=== PATIENT | female | born 1990 | race Caucasian/White ===

== ENCOUNTER 2017-11-09 07:53 | Day surgery (SDC) | END 2017-11-09 12:54 | disposition home or self-care (01) ==

== ENCOUNTER 2019-02-12 09:31 | Inpatient (IN) | payer OTHER ==
[~2019-02-12] VITALS: Ht 147.3 cm; Wt 93.0 kg
[~2019-02-12 09:31] MED LIST: ASPI-1044 PO; CHOL100062 PO; CIPR500T4 PO; CYAN100T PO; ENOX100D2 SC; ERGO500013 PO; IPRA4AER INHALATION; LEVO75TA5 PO; LEVO88TA42 PO; LIT300 PO; LORA10TA3 PO; LOXA10CA PO; MECL-77 PO; METF500T24 PO; METO-448 PO; NAPH30DR3 RIGHT EYE; PROP10TA6 PO; SERT25TA83 PO; TOPI25CA PO
[2019-02-12] MEDS ORDERED: ALBUTEROL 0.083% (NEB) 2.5 MG/3 ML AMP INH STA (09:52)
[2019-02-12] MEDS ORDERED: CEFTRIAXONE 1 GM/50 ML (PMX) 50 ML IVPB ONE (12:00)
--- NOTE | 2019-02-12 12:22 | ERD ---
ER Documentation Chief Complaint Chief Complaint cough, sob x3 wks, tachypneic in triage, 02 88-93%, pitting edema lle HPI 28-year-old female brought to the emergency department by her mother for evaluation of shortness of breath. According to mom patient has a history of obstructive sleep apnea and has been noncompliant with the use of her BiPAP machine. Over the last 3 weeks she has been having increasing lower extremity edema and is becoming more more short of breath. This morning she was severely short of breath and was brought to the emergency department. There is no history of fever, sputum production, chest pain. ROS All systems reviewed and are negative except as per history of present illness. Medications Home Meds Reported Medications [place] Carbonate* ([place]*) 300 Mg Cap, 600 MG PO QHS, CAP 02/12/19 Levothyroxine Sodium* (Levoxyl*) 88 Mcg Tablet, 88 MCG PO BEFORE BREAKFAST, #30 TAB 02/12/19 Loxapine Succinate (Loxapine) 10 Mg Capsule, 10 MG PO QHS, CAP 02/12/19 Cyanocobalamin* (Vitamin B12*) 100 Mcg Tab, 100 MCG PO DAILY, TAB 02/12/19 Loratadine* (Loratadine*) 10 Mg Tablet, 10 MG PO DAILY, #30 TAB 02/12/19 Metformin Hcl* (Metformin Hcl*) 500 Mg Tablet, 500 MG PO WITH BREAKFAST, #30 TAB 02/12/19 Propranolol Hcl* (Propranolol Hcl*) 10 Mg Tablet, 10 MG PO BID, TAB 02/12/19 Ergocalciferol (Vitamin D2) (VITAMIN D2) 50,000 Unit Capsule, 81246 UNIT PO EVERY SUNDAY, CAP 02/12/19 Discontinued Reported Medications Cholecalciferol* (Vitamin D3*) 1,000 Unit Tablet, 1000 UNIT PO DAILY, TAB 11/09/17 Topiramate* (Topamax*) 25 Mg Cap.sprink, 50 MG PO QAM, CAP 11/09/17 Topiramate* (Topamax*) 25 Mg Cap.sprink, 100 MG PO QPM, CAP 11/09/17 Sertraline Hcl* (Sertraline Hcl*) 25 Mg Tablet, 75 MG PO DAILY, #30 TAB 11/09/17 Levothyroxine Sodium* (Levothyroxine Sodium*) 75 Mcg Tablet, 75 MCG PO BEFORE BREAKFAST, #30 TAB 11/09/17 Allergies Allergies: Coded Allergies: No Known Drug Allergies (Unverified Allergy, Unknown, 02/12/19) PMhx/Soc History of Surgery: No Anesthesia Reaction: No Hx Neurological Disorder: No Hx Respiratory Disorders: Yes (sleep apnea) Hx Cardiac Disorders: No Hx Psychiatric Problems: Yes (halucinations) Hx Miscellaneous Medical Probl: Yes (down syndrome) Hx Alcohol Use: No Hx Substance Use: No Hx Tobacco Use: No Smoking Status: Never smoker FmHx Noncontributory supportive mother at the bedside Physical Exam Vitals Vital Signs Date Temp Pulse Resp B/P (MAP) Pulse Ox O2 O2 Flow FiO2 Time Delivery Rate 02/12/19 72 20 106/51 100 BIPAP 12:04 (69) 02/12/19 93 27 10:00 02/12/19 93 99 50 10:00 02/12/19 98.5 97 60 124/64 93 09:33 (84) Physical Exam GENERAL: Down syndrome appearance. Patient appears short of breath. HEENT: Pupils equal, round, and reactive to light. EOMI. There is no scleral icterus. NECK: C-spine is soft and supple, there is no meningismus. There is no cervical lymphadenopathy. No JVD LUNGS: Wheezing bilaterally with decreasing tidal volume. Occasional crackle at both bases. She is tachypneic with use of accessory muscles. HEART: Regular rate and rhythm, no murmurs, clicks, rubs or gallops. ABDOMEN: Soft, non-tender, non-distended. There are bowel sounds in all four quadrants. No rebound or guarding. EXTREMITIES: 2+ edema bilaterally with no cyanosis or clubbing NEURO: The patient moves all four extremities with 5/5 strength. Cranial nerves II - XII are intact. Normal gait. Alert and oriented SKIN: There is no apparent rash or petechiae. HEME/LYMPHATIC: There is no evidence of excessive bruising or lymphedema. PSYCHIATRIC: The patient does not appear anxious or depressed. Result Diagram: [birth year] Results 24 hrs Laboratory Tests Test 02/12/19 09:47 02/12/19 09:51 02/12/19 10:07 Bedside Glucose 109 mg/dL White Blood Count 16.9 10^3/ul Red Blood Count 5.56 10^6/ul Hemoglobin 14.8 g/dl Hematocrit 47.7 % Mean Corpuscular Volume 85.8 fl Mean Corpuscular Hemoglobin 26.6 pg Mean Corpuscular Hemoglobin Concent 31.0 g/dl Red Cell Distribution Width 18.9 % Platelet Count 377 10^3/UL Mean Platelet Volume 8.8 fl Immature Granulocytes % 0.900 % Neutrophils % 87.0 % Lymphocytes % 6.6 % Monocytes % 4.6 % Eosinophils % 0.2 % Basophils % 0.7 % Nucleated Red Blood Cells % 0.0 /100WBC Immature Granulocytes # 0.160 10^3/ul Neutrophils # 14.7 10^3/ul Lymphocytes # 1.1 10^3/ul Monocytes # 0.8 10^3/ul Eosinophils # 0.0 10^3/ul Basophils # 0.1 10^3/ul Nucleated Red Blood Cells # 0.0 10^3/ul Prothrombin Time 13.5 Sec Prothrombin Time Ratio 1.1 INR International Normalized Ratio 1.02 Activated Partial Thromboplast Time 27.3 Sec Sodium Level 136 mmol/L Potassium Level 4.1 mmol/L Chloride Level 96 mmol/L Carbon Dioxide Level 30 mmol/L Anion Gap 10 Blood Urea Nitrogen 10 mg/dl Creatinine 0.76 mg/dl Est Glomerular Filtrat Rate mL/min > 60 mL/min Glucose Level 117 mg/dl Calcium Level 9.4 mg/dl Total Bilirubin 0.7 mg/dl Direct Bilirubin 0.00 mg/dl Indirect Bilirubin 0.7 mg/dl Aspartate Amino Transf (AST/SGOT) 36 IU/L Alanine Aminotransferase (ALT/SGPT) 32 IU/L Alkaline Phosphatase 75 IU/L Troponin I < 0.012 ng/ml B-Type Natriuretic Peptide 66 PG/ML Total Protein 7.7 g/dl Albumin 4.0 g/dl Globulin 3.70 g/dl Albumin/Globulin Ratio 1.08 POC Venous Lactate 1.0 mmol/L Current Medications Medications Dose Sig/Asiya Start Time Status Last (Trade) Ordered Route PRN Stop Time Admin Dose Reason Admin Albuterol 5 mg ONCE STAT 02/12/19 DC 02/12/19 (Proventil INH 09:52 02/12/19 10:04 0.083% (Neb)) 09:54 Ceftriaxone 50 ml @ ONCE ONCE 02/12/19 02/12/19 Sodium 100 mls/hr IVPB 12:00 02/12/19 12:02 12:29 Procedures/MDM Patient was taken to a room, seen and evaluated. Comfort measures were initiated. Diagnostic tests were ordered and reviewed. 3 LEAD RHYTHM STRIP: Normal sinus rhythm without ectopy EK lead EKG reviewed by myself: Normal Sinus Rhythm Rightward axis deviation Nonspecific ST and T wave changes Impression: Nonspecific EKG RADIOLOGY: Reviewed with the radiologist CONSULTATION: Dr. Schumacher was notified for admission REEVALUATION: 1220: Diagnostic tests were appreciated and discussed with the family decision was made for admission to the hospital. After BiPAP treatment, patient appeared to be improving. Her work of breathing improved and she seemed to be much more comfortable on the BiPAP. MEDICAL DECISION MAKING: Patient presents for shortness of breath. Differential diagnosis entertained included asthma, pneumonia, other cardiac and pulmonary concerns. After reviewing the patient's diagnostic tests and clinical presentation, patient appears to have pulmonary hypertension resulting in a congestive heart failure type picture likely secondary to sleep apnea. Patient has an elevated white blood cell count given the severity of her presentation, I will be placing her on antibiotics although I doubt this is a pneumonia. Patient's first troponin is reassuring and I do not believe this is likely ischemic especially given her age. She will be admitted to the hospital for diuresis, respiratory support and further diagnostic treatment and observation. Departure Diagnosis: Primary Impression: Pulmonary hypertension Additional Impression: Obstructive sleep apnea Condition: Serious LEWIS JENKINS Feb 12, 2019 12:22
[2019-02-12] MEDS ORDERED: ONDANSETRON 4 MG INJ IV PRN ×2 (12:30→15:30)
[2019-02-12] MEDS ORDERED: FUROSEMIDE 40 MG INJ IV ONE (12:30)
[2019-02-12] MEDS ORDERED: ACETAMINOPHEN 325 MG TAB PO PRN (12:30)
--- NOTE | 2019-02-12 15:15 | QN ---
Documentation Comment Pt seen and examined, Dictated Transfer to ICU, abg pending might need intubation LORNA LYONS MD Feb 12, 2019 15:15
[2019-02-12] MEDS ORDERED: METHYLPREDNISOLONE 125 MG INJ IV ONE (15:30)
[2019-02-12] MEDS ORDERED: VANCOMYCIN IV PER PHARMACY XX SCH (15:30)
[2019-02-12] MEDS ORDERED: NACL 0.9% 3 ML SYG IV SCH (15:30)
[2019-02-12] MEDS ORDERED: DOCUSATE SODIUM 100 MG CAP PO PRN (15:30)
[2019-02-12] MEDS: FAMOTIDINE 20 MG INJ IV SCH (15:49)
[2019-02-12] MEDS ORDERED: MIDAZOLAM (DRIP) 50 mg/50 mL 50 ML IV STA (15:50)
[2019-02-12] MEDS ORDERED: VANCOMYCIN HCL 2 GM in SOD CHLORIDE 0.9% 500 ML IVPB SCH (16:30)
[2019-02-12] MEDS ORDERED: LORAZEPAM 2 MG INJ ONE (17:49)
[2019-02-12] MEDS ORDERED: PROPOFOL 100 ML IV STA (17:58)
[2019-02-12] MEDS ORDERED: LORAZEPAM 2 MG INJ IV ONE (18:00)
--- NOTE | 2019-02-12 18:02 | EN ---
Date/Time of Note Date/Time of Note DATE: 02/12/19 TIME: 17:59 ER Progress Note Admitting physician requested intubation. Endotracheal Intubation by me: Pre assessment performed. I administered etomidate 20 mg IV and rocuronium 100 mg IV Pre-oxygenation performed with 100% oxygen RSI: Performed w/o complication or hypoxic events. Medications as ordered. Blade: 4.0 CMAC blade ET Tube: 7.0 cm Depth: 21 cm at the lip Intubation confirmed by colorimetric CO2, equal breath sounds, quiet over the stomach. Chest X-ray 1V Interpreted by me: Reveals bilateral mild congestion, no acute infiltrates although ET tube was in the right mainstem bronchus, it was pulled out 3 cm. Repeat chest x-ray performed after correcting the ET tube depth revealed an ET tube just above the zenon, no acute infiltrates, mild congestion bilaterally. I did pull back the ET tube another centimeter after this although further x- rays will be deferred. RAOUL MYERS MD Feb 12, 2019 18:02
[2019-02-12] MEDS: ALBUTEROL/IPRATROPIUM (NEB) 3 ML AMP HHN SCH ×2 (18:05→21:05)
--- NOTE | 2019-02-12 18:37 | HP ---
DATE OF ADMISSION: 02/12/2019 REASON FOR ADMISSION: Shortness of breath. HISTORY OF PRESENTING ILLNESS: This is a 28-year-old female with a past medical history of Down synd lucho, hypothyroidism, diabetes, hypertension, history of psychosis in the past, sleep apnea, was brou ght in by the mother after the patient has been noncompliant with her use of her CPAP machine at home . According to the mother, the patient has been really noncompliant with her CPAP machine. She does not like the way it fits on her mouth. She has been progressively becoming very weak, tired, short of breath and was brought into the emergency department for further evaluation. Currently, patient i s very altered, unable to obtain any history; however according to the mother also patient responds a little bit in Latvian. According to the mother, the patient did not have any cough, any chest pain, any fevers and chills. On arrival to ED, vital signs showed temperature of 98.7, respiratory rate o f 18 currently 29, blood pressure was 110/63, was initially put on BiPAP; however the patient refused BiPAP and then currently was on high flow at 80%. The patient was given albuterol, DuoNeb, Proventi l and Rocephin and was admitted for further management. The patient had chest x-ray which was a poor study. BUN was 10 and creatinine 0.76. White count of 16.9, hemoglobin 14.8, platelet count 377. PAST MEDICAL HISTORY: 1. Down syndrome as a child. 2. Hypertension. 3. Hyperlipidemia. 4. Diabetes. 5. Hypothyroidism. 6. Sleep apnea. 7. History of psychosis disorder. MEDICATIONS TAKING AT HOME: 1. [place] carbonate 600 at bedtime. 2. Loratadine 10. 3. Propranolol 10 b.i.d. 4. Loxapine 10 mg at bedtime. 5. Levothyroxine 88. 6. Metformin 500 with breakfast. 7. Cyanocobalamin. 8. Vitamin D2. ALLERGIES: NONE. PAST SURGICAL HISTORY: Status post ventral hernia repair. SOCIAL HISTORY: No history of smoking, alcohol or drug use. Currently lives with mother. According to the mother, the patient goes to a community school and can read a little bit and understand a lit tle bit of Latvian. FAMILY HISTORY: No history of Down syndrome. PHYSICAL EXAMINATION: VITAL SIGNS: Currently, blood pressure 109/93, pulse 97, respiratory rate in 30s, saturating 92% on 80% of FiO2. GENERAL: The patient is very lethargic, barely arousable, slightly open her eyes, does not follow an y commands. NECK: Thick. Morbidly obese. HEART: Regular rate and rhythm. LUNGS: Decreased breath sounds bilaterally. ABDOMEN: Distended, obese. Positive bowel sounds. EXTREMITIES: Short extremities with 1 to 2+ pitting edema. LABORATORY DATA: BUN of 10, creatinine 0.76. Lactate of 1. White count 16.9, hemoglobin 14.8, plat elet count 377. UA: 1+ hemoglobin. ABG is pending. DIAGNOSTIC DATA: The patient had chest x-ray that showed very poor inspiration with some compression of lung parenchyma gives the heart . ASSESSMENT AND PLAN: This is a 28-year-old female with: 1. Severe altered mental status likely secondary to metabolic encephalopathy, likely secondary to CO 2 narcosis. The patient is also on antidepressants and loxapine at home. I do not know if that is a contribution to that. 2. Severe sleep apnea, impending respiratory failure. 3. Likely respiratory acidosis. 4. Morbid obesity. 5. Down syndrome. 6. Hypertension. 7. Diabetes. 8. History of ventral hernia repair. 9. Leukocytosis, rule out pneumonia. PLAN: At this period of time, the patient will be admitted to the ICU. The patient will be n.p.o., aspiration precautions, will be on nebs round the clock. She will also be on steroids round the cloc k. ABG is pending. We will also start the patient on broad spectrum IV antibiotics with vancomycin and cefepime. The patient will most likely need an intubation. I spoke to Dr. Capone and to Dr. Marquis Rodriguez. I spoke to the mother at the bedside. Rest of the treatment will depend on t he patient's hospitalization course. Dictated By: LORNA TREVIZO/MICHAEL Conf#: [id number] DID#: [id number] CC: LEWIS JENKINS; SHARIF TORRES MD;*End*
--- NOTE | 2019-02-12 20:11 | CONS ---
DATE OF ADMISSION: 02/12/2019 DATE OF CONSULTATION: 02/12/2019 TYPE OF CONSULTATION: Cardiology. REASON FOR CONSULTATION: Chest pain, assess for acute coronary syndrome as well as shortness of aide th, congestive heart failure. REQUESTING PHYSICIAN: Julieth Lyons MD HISTORY OF PRESENT ILLNESS: Ms. Robertson is a 28-year-old female with history of Down syndrome, obst ructive sleep apnea, hypertension, diabetes mellitus, hypothyroidism, who presented with complaints o f worsening shortness of breath, noncompliance with her BiPAP machine at home as well as lower extrem ity edema. There is no documented history of fever or increased sputum production. Upon arrival, te mperature was 98.5, blood pressure 124/64, pulse 97, respiratory rate 16, satting 93%. The patient's labs revealed a white blood cell count of 16.9, hemoglobin 14.8, platelet count of 377, sodium of 13 6, potassium 4.1, creatinine 0.76, BUN of 10, AST of 36, ALT of 32, troponin negative. ABG revealing a pH of 7.32, PaO2 of 98, pCO2 of 53, UA negative. The patient's chest x-ray revealed very poor ins piration resulting compression of lung parenchyma giving heart a transverse configuration. The patie nt's electrocardiogram reveals normal sinus rhythm, rate 84, normal axis, normal intervals with mild diffuse T-wave flattening, borderline right axis deviation mildly with diffuse ST and T-wave flatteni ng. The patient thus far in the emergency department required intubation after being given dose of [place]-Medrol 125, dose of Lasix 40 and is to be admitted to the ICU. PAST MEDICAL HISTORY: As above in HPI. MEDICATIONS CURRENTLY IN HOSPITAL: 1. Lovenox 40 mg subcutaneously daily. 2. Vancomycin. 3. Cefepime IV q.12. 4. Pepcid 20 mg IV q.12. 5. Midazolam. 6. Tylenol p.r.n. 7. Colace p.r.n. 8. Vancomycin p.r.n. 9. Zofran. 10. Ceftriaxone. ALLERGIES: NO KNOWN DRUG ALLERGIES. SOCIAL HISTORY: No current tobacco, EtOH or illicit drug use. FAMILY HISTORY: No history of sudden cardiac or early CAD. REVIEW OF SYSTEMS: As above in HPI. CONSTITUTIONAL: No fevers, chills. PULMONARY: Respiratory failure, status post intubation. GASTROINTESTINAL: No vomiting. GENITOURINARY: No hematuria. MUSCULOSKELETAL: Degenerative joint disease. PSYCHIATRIC: No documented psychiatric history. NEUROLOGIC: History of Down syndrome. CARDIOVASCULAR: Lower extremity edema. PHYSICAL EXAMINATION: VITAL SIGNS: Temperature of 98.5, blood pressure 110/70, pulse 97, respiratory rate 16, satting 98%. GENERAL: The patient is intubated and sedated. NECK: JVP is approximately 9 cm of water. CHEST: Upper airway transmitted rhonchus sounds. HEART: Regular rate and rhythm. Normal S1, S2, I/ systolic murmur, nondisplaced PMI. ABDOMEN: Positive bowel sounds, soft. EXTREMITIES: Trace pitting edema bilaterally, 1+ pulses bilateral posterior tibial. LABORATORY DATA: As above in HPI. No further labs for my review at this time. IMAGING STUDIES: As above in HPI. No further imaging studies for my review at this time. ELECTROCARDIOGRAM: As above in HPI. No further electrocardiograms for my review at this time. IMPRESSION: 1. Respiratory failure, assess for congestive heart failure. 2. Lower extremity edema, assess for congestive heart failure. 3. Tachycardia, improved, status post intubation, likely due to respiratory distress. 4. Abnormal electrocardiogram with right axis deviation and T-wave flattening. Assess for acute cor onary syndrome. 5. Down syndrome. 6. Hypothyroidism. 7. Diabetes mellitus. 8. Obstructive sleep apnea. RECOMMENDATIONS: 1. At this time, the patient is admitted to the ICU for close monitoring. 2. We will continue the patient's broad-spectrum antibiotics and follow up all culture data. 3. We would continue gentle diuresis, but had noted the patient's BNP never high. We will continue diuresis given lower extremity edema. 4. Check a 2D echo for this patient's ejection fraction, wall motion or rule out any major valve abn ormalities. 5. Complete a rule out for myocardial infarction to ensure the patient's episodes of chest pain prio r to admit were not due to acute coronary syndrome such an acute myocardial infarction, although no r eport description of that at this time. 6. Continue the patient's current steroids and bronchodilators. Thank you for allowing me to take part in the care of this patient. I will continue to follow her ve ry closely with you with further recommendations to be made as the [facility]. Dictated By: SHARIF PUGA/MICHAEL Conf#: [id number] DID#: [id number] CC: LEWIS JENKINS; JULIETH LYONS;*EndCC*
--- NOTE | 2019-02-12 20:30 | CONS ---
DATE OF ADMISSION: 02/12/2019 DATE OF CONSULTATION: 02/12/2019 TYPE OF CONSULTATION: Pulmonary. REASON FOR CONSULT: Respiratory distress. HISTORY OF PRESENT ILLNESS: This is an unfortunate 28-year-old lady with history of Down syndrome, c omes in with several-day history of increasing shortness of breath, orthopnea, PND, marked hypoxemia, not tolerating noninvasive positive pressure ventilation on high flow O2. Case was discussed with E R physician and I recommended that the patient be intubated for airway protection and address hypoven tilation. PAST MEDICAL HISTORY: Down syndrome. FAMILY HISTORY: Noncontributory. SYSTEMS REVIEW: A 12-point review of systems was negative other than that mentioned above. PHYSICAL EXAMINATION: GENERAL: Somnolent young lady. VITAL SIGNS: Currently afebrile, pulse is 97, blood pressure 110/70, O2 saturation 98% on 100% FiO2. NECK: Unable to assess JVP. CARDIAC: S1, S2. Distant heart sounds. CHEST: Diminished air entry bilaterally. ABDOMEN: Obese, soft, nontender. No guarding or rebound. EXTREMITIES: No cyanosis, clubbing. NEUROLOGIC: Unable to assess. LABORATORIES: White count 16.9, hemoglobin 14.8, platelets of 377. BUN 10, creatinine 0.76. INR 1. 02. Arterial blood gas post-intubation: pH 7.48, pCO2 of 41, pO2 of 148. DIAGNOSTIC DATA: Chest x-ray was reviewed, which demonstrated low lung volumes, bibasilar atelectasi s. IMPRESSION AND PLAN: Impending respiratory arrest in this unfortunate 28-year-old lady with severe o bstructive sleep apnea and Down syndrome, probable underlying tracheobronchitis also. The patient will require: 1. Emergent intubation. 2. Bronchodilators. 3. Antibiotics. 4. Vent support. 5. Probable central line. 6. DVT and GI prophylaxis. Dictated By: MARY ANN MCKEON MD SV/MICHAEL Conf#: [id number] DID#: [id number] CC: LEWIS JENKINS; SHARIF TORRES MD;*EndCC*
[2019-02-12] MEDS ORDERED: ALBUTEROL/IPRATROPIUM (NEB) 3 ML AMP ONE (21:05)
[2019-02-12 23:45] VITALS: BP 118/71; PULSE 100; RESP 16
[2019-02-13] VITALS (59 sets, daily range): BP systolic 80–119; BP diastolic 33–64; PULSE 85–110; RESP 11–49; BMI 46.5
[2019-02-13] MEDS: FAMOTIDINE 20 MG INJ IV SCH ×3 (00:08→21:10)
[2019-02-13] MEDS: DEXTROSE 5%-0.45% NACL 1,000 ML IV SCH ×2 (00:08→15:16)
[2019-02-13] MEDS: CEFEPIME 1GM/50 ML (PMX) 50 ML IVPB SCH ×3 (00:08→21:10)
[2019-02-13] MEDS: METHYLPREDNISOLONE 125 MG INJ IV SCH ×4 (00:08→21:10)
[2019-02-13] MEDS ORDERED: MIDAZOLAM (DRIP) 50 mg/50 mL 50 ML IV SCH (00:30)
[2019-02-13] MEDS: ALBUTEROL/IPRATROPIUM (NEB) 3 ML AMP HHN SCH ×6 (00:52→20:51)
[2019-02-13] MEDS: VANCOMYCIN HCL 1.25 GM in SOD CHLORIDE 0.9% 250 ML IVPB SCH ×2 (06:27→18:36)
[2019-02-13] MEDS: ENOXAPARIN 40 MG/0.4 ML SYG SC SCH (08:57)
[2019-02-13] MEDS: PROPOFOL 100 ML IV SCH ×5 (08:57→21:18)
[2019-02-13] MEDS ORDERED: FUROSEMIDE 20 MG INJ IV SCH (09:00)
--- NOTE | 2019-02-13 10:46 | CONS ---
Consult Date/Type/Reason Admit Date/Time Feb 12, 2019 at 12:24 Initial Consult Date Type of Consultation: Pulm/CCM Date/Time of Note DATE: 02/13/19 TIME: 10:33 Subjective Sedated on propofol and versed gtt. On mechanical ventilation. Objective Vitals Vital Signs Date Temp Pulse Resp B/P (MAP) Pulse Ox O2 O2 Flow FiO2 Time Delivery Rate 02/13/19 100 08:23 02/13/19 93 08:00 02/13/19 99.0 16 111/53 89 Mechanical 08:00 (72) Ventilator 02/12/19 15.0 15:34 Intake and Output 02/12/19 02/12/19 02/13/19 1515:00 23:00 07:00 IntakeIntake Total 176 ml OutputOutput Total 400 ml BalanceBalance -224 ml Exam HEENT: Neck supple; no JVD; no LAD; + ET tube CVS: RRR, S1 and S2 CHEST: Clear distant breath sounds ABD: Obese, soft, NT, + BS EXT: No c/c: + edema NEURO: sedated on the vent. Moves all extremities. Results/Medications Result Diagram: 02/13/1931 02/13/19530 Results 24 hrs Laboratory Tests Test 02/12/19 12:55 02/12/19 14:50 02/12/19 15:11 02/12/19 16:18 Urine Color STRAW Urine Clarity CLEAR Urine pH 7.0 Urine Specific 1.003 [place] Urine Ketones NEGATIVE Urine Nitrite NEGATIVE Urine Bilirubin NEGATIVE Urine NEGATIVE Urobilinogen Urine Leukocyte NEGATIVE Esterase Urine 0 Microscopic RBC Urine 1 Microscopic WBC Urine 1+ H Hemoglobin Urine Glucose NEGATIVE Urine Total NEGATIVE Protein Thyroid 2.200 Stimulating Hormone (TSH) Urine Opiates Negative Screen Urine Negative Barbiturates Urine Negative Amphetamines Screen Urine Negative Benzodiazepines Screen Urine Cocaine Negative Screen Urine Negative Cannabinoids Blood Gas Blood arterial Blood arterial Specimen Source Arterial Blood 02/12/2019 3:05:2 02/12/2019 4:34:4 Date Drawn 2 PM 3 PM Arterial Blood 7.382 7.483 H pH (Temp corrected ) Arterial Blood 53.8 H 41.2 pCO2 (Temp correct) Arterial Blood 93.3 148.1 H pO2 (Temp corrected ) Arterial Blood 31.3 H 30.2 H HCO3 Arterial Blood 4.5 H 6.2 H Base Excess Arterial Blood 96.8 99.0 H Oxygen Saturati on [place] Test ACCEPTAB ACCEPTAB Arterial Blood Right Radial Right Radial Gas Puncture Site Arterial 0.8 0.9 Blood Carboxyhe moglobin Arterial Blood 0.4 0.4 Methemoglobin Blood Gas A-a 420.6 H 523.7 H O2 Differential Oxyhemoglobin 95.6 97.7 Percent Blood Gas 37.0 37.0 Temperature Blood Gas HFNC VENT - AC Modality FiO2 80.0 100.0 Blood Gas MDA MDA Notified Whom Blood Gas 02/12/2019 3:11:0 02/12/2019 4:37:2 Notified Time 1 PM 4 PM Lactic Acid 1.1 Level Creatine Kinase 70 Creatine Kinase 7.2 Index Creatinine 5.04 H Kinase MB (Mass) Troponin I < 0.012 Blood Gas 16.0 Respiration Rate Blood Gas 16 Actual Respiration Rat e Blood Gas Tidal 500.0 Volume Blood Gas Low 5.0 PEEP Setting Test 02/12/19 21:37 02/13/19 05:31 02/13/19 07:00 Lactic Acid 2.4 *H Level Creatine Kinase 49 Creatine Kinase 5.8 Index Creatinine 2.86 H Kinase MB (Mass) Troponin I < 0.012 < 0.012 White Blood 14.4 H Count Red Blood Count 5.45 H Hemoglobin 14.5 Hematocrit 46.3 Mean 85.0 Corpuscular Volume Mean 26.6 L Corpuscular Hemoglobin Mean 31.3 L Corpuscular Hemoglobin Conc ent Red Cell 19.9 H Distribution Width Platelet Count 365 Mean Platelet 9.1 Volume Immature 1.100 H Granulocytes % Neutrophils % 91.6 H Lymphocytes % 5.3 L Monocytes % 1.8 Eosinophils % 0.0 Basophils % 0.2 Nucleated Red 0.0 Blood Cells % Immature 0.160 H Granulocytes # Neutrophils # 13.2 H Lymphocytes # 0.8 Monocytes # 0.3 Eosinophils # 0.0 Basophils # 0.0 Nucleated Red 0.0 Blood Cells # Sodium Level 139 Potassium Level 3.8 Chloride Level 99 Carbon Dioxide 29 Level Anion Gap 11 Blood Urea 16 Nitrogen Creatinine 0.89 Est Glomerular > 60 Filtrat Rate mL/min Glucose Level 159 Calcium Level 9.1 Phosphorus 3.6 Level Magnesium Level 2.2 Total Bilirubin 0.5 Direct 0.00 Bilirubin Indirect 0.5 Bilirubin Aspartate Amino 42 Transf (AST/SGO T) Alanine 31 Aminotransferas e (ALT/SGPT) Alkaline 72 Phosphatase Total Protein 7.5 Albumin 3.9 Globulin 3.60 H Albumin/Globuli 1.08 n Ratio Thyroid 0.798 Stimulating Hormone (TSH) Blood Gas Blood arterial Specimen Source Arterial Blood 02/13/2019 9:15:5 Date Drawn 9 AM Arterial Blood 7.436 pH (Temp corrected ) Arterial Blood 39.0 pCO2 (Temp correct) Arterial Blood 115.9 H pO2 (Temp corrected ) Arterial Blood 25.7 HCO3 Arterial Blood 1.5 Base Excess Arterial Blood 98.2 H Oxygen Saturati on [place] Test ACCEPTAB Arterial Blood Right Radial Gas Puncture Site Arterial 0.5 Blood Carboxyhe moglobin Arterial Blood 0.3 Methemoglobin Blood Gas A-a 558.1 H O2 Differential Oxyhemoglobin 97.4 Percent Blood Gas 37.0 Temperature Blood Gas 16.0 Respiration Rate Blood Gas 17 Actual Respiration Rat e Blood Gas VENT - AC Modality FiO2 100.0 Blood Gas Tidal 500.0 Volume Blood Gas Low 5.0 PEEP Setting Blood Gas DT Notified Whom Blood Gas 02/13/2019 9:38:4 Notified Time 5 AM Home Meds Reported Medications [place] Carbonate* ([place]*) 300 Mg Cap, 600 MG PO QHS, CAP 02/12/19 Levothyroxine Sodium* (Levoxyl*) 88 Mcg Tablet, 88 MCG PO BEFORE BREAKFAST, #30 TAB 02/12/19 Loxapine Succinate (Loxapine) 10 Mg Capsule, 10 MG PO QHS, CAP 02/12/19 Cyanocobalamin* (Vitamin B12*) 100 Mcg Tab, 100 MCG PO DAILY, TAB 02/12/19 Loratadine* (Loratadine*) 10 Mg Tablet, 10 MG PO DAILY, #30 TAB 02/12/19 Metformin Hcl* (Metformin Hcl*) 500 Mg Tablet, 500 MG PO WITH BREAKFAST, #30 TAB 02/12/19 Propranolol Hcl* (Propranolol Hcl*) 10 Mg Tablet, 10 MG PO BID, TAB 02/12/19 Ergocalciferol (Vitamin D2) (VITAMIN D2) 50,000 Unit Capsule, 75585 UNIT PO EVERY SUNDAY, CAP 02/12/19 Discontinued Reported Medications Cholecalciferol* (Vitamin D3*) 1,000 Unit Tablet, 1000 UNIT PO DAILY, TAB 11/09/17 Topiramate* (Topamax*) 25 Mg Cap.sprink, 50 MG PO QAM, CAP 11/09/17 Topiramate* (Topamax*) 25 Mg Cap.sprink, 100 MG PO QPM, CAP 11/09/17 Sertraline Hcl* (Sertraline Hcl*) 25 Mg Tablet, 75 MG PO DAILY, #30 TAB 11/09/17 Levothyroxine Sodium* (Levothyroxine Sodium*) 75 Mcg Tablet, 75 MCG PO BEFORE BREAKFAST, #30 TAB 11/09/17 Medications Current Medications Dextrose/Sodium Chloride 1,000 ml @ 20 mls/hr Q24H IV Last administered on 02/13/19at 00:08; Admin Dose 20 MLS/HR; Start 02/12/19 at 15:16 IV Flush (NS 3 ml) 3 ml PER PROTOCOL IV ; Start 02/12/19 at 15:30 Ondansetron HCl (Zofran Inj) 4 mg Q6H PRN IV NAUSEA/VOMITING; Start 02/12/19 at 15:30 Acetaminophen (Tylenol Tab) 650 mg Q6H PRN PO .PAIN 1-3 OR TEMP; Start 02/12/19 at 15:30 Docusate Sodium (Colace) 100 mg Q12H PRN PO .CONSTIPATION; Start 02/12/19 at 15:30 Famotidine (Pepcid Iv) 20 mg Q12 IV Last administered on 02/13/19at 09:01; Admin Dose 20 MG; Start 02/12/19 at 16:00 Enoxaparin Sodium (Lovenox) 40 mg DAILY SC Last administered on 02/13/19at 08:57; Admin Dose 40 MG; Start 02/13/19 at 09:00 Vancomycin HCl (Vanco Iv Per Pharmacy) VANCOMYCIN PER PHARMACY PER PROTOCOL XX ; Start 02/12/19 at 15:30 Cefepime HCl 50 ml @ 100 mls/hr Q12 IVPB Last administered on 02/13/19at 08:56; Admin Dose 100 MLS/HR; Start 02/12/19 at 21:00 Methylprednisolone Sodium Succinate (Solu-Medrol) 60 mg Q8 IV Last administered on 02/13/19at 06:13; Admin Dose 60 MG; Start 02/12/19 at 22:00 Albuterol/ Ipratropium (Duoneb) 3 ml Q4H RESP THERAPY HHN Last administered on 02/13/19at 09:33; Admin Dose 3 ML; Start 02/12/19 at 17:00 Vancomycin HCl 1.25 gm/Sodium Chloride 250 ml @ 83.333 mls/ hr Q12H IVPB Last administered on 02/13/19at 06:27; Admin Dose 83.333 MLS/HR; Start 02/13/19 at 05:00 Furosemide (Lasix) 20 mg DAILY IV Last administered on 02/13/19 08:56; Admin Dose 20 MG; Start 02/13/19 at 09:00 Midazolam HCl 50 ml @ 1 mls/hr TITRATE IV Last administered on 02/13/19at 04:59; Admin Dose 6 MLS/HR; Start 02/13/19 at 00:30 Propofol 100 ml @ 3.027 mls/ hr Q12H IV Last administered on 02/13/19at 08:57; Admin Dose 30.27 MLS/HR; Start 02/13/19 at 00:30 Assessment/Plan Assessment/Plan (Daily) IMP: 1. Hypoxemic Respiratory Failure: imaging findings consistent with a multifocal pneumonia. Cannot exclude co-existing CHF, especially in view of history of Down's. BNP may be unreliable given obesity. 2. Down's Syndrome 3. EILEEN 4. HTN 5. DM RECS: 1. Continue broad-spectrum abx 2. Follow-up cultures 3. Vent--> change to VC+ VT target 400 ml; PEEP 12 4. Titrate FI02 to maintain PaO2> 55-60 mm Hg 5. Await ECHO 6. Start TF/Free H20 40 min cc time SIMRAN FALK MD Feb 13, 2019 10:45
--- NOTE | 2019-02-13 10:51 | PN ---
Date/Time of Note Date/Time of Note DATE: 02/13/19 TIME: 10:43 Assessment/Plan VTE Prophylaxis Risk score (from Ns)>0 risk: 6 SCD applied (from Ns): Yes Pharmacological prophylaxis: NA/contraindicated Pharm contraindication: low risk/ambulating Lines/Catheters IV Catheter Type (from [facility]): Peripheral IV Urinary Cath still in place: Yes Reason Cath still needed: urinary retention Assessment/Plan Assessment/Plan 28-year-old female with: 1. Severe altered mental status likely secondary to metabolic encephalopathy, likely secondary to CO2 narcosis. The patient is also on antidepressants and loxapine at home. Surprisingly on ABG CO2 levels were not high 2. Hypoxic resp failure s/p intubation secondary to pneumonia/CHF 3. Likely respiratory acidosis. 4. Morbid obesity. 5. Down syndrome. 6. Hypertension. 7. Diabetes. 8. History of ventral hernia repair. 9. Leukocytosis secondary to pneumonia plan -Vent management per pulmonary. -Sedation per pulmonary -Still on 100% of FiO2 -cwwith vancomycin/cefepime -cw with nebs/steroids - cw iv lasix 20 and ECHO pending - GI/DVT prophylaxsis pt condition is guarded Result Diagram: 02/13/19 0531 02/13/1931 Results 24hrs Laboratory Tests Test 02/12/19 12:55 02/12/19 14:50 02/12/19 15:11 02/12/19 16:18 Urine Color STRAW Urine Clarity CLEAR Urine pH 7.0 Urine Specific 1.003 [place] Urine Ketones NEGATIVE Urine Nitrite NEGATIVE Urine Bilirubin NEGATIVE Urine NEGATIVE Urobilinogen Urine Leukocyte NEGATIVE Esterase Urine 0 Microscopic RBC Urine 1 Microscopic WBC Urine 1+ H Hemoglobin Urine Glucose NEGATIVE Urine Total NEGATIVE Protein Thyroid 2.200 Stimulating Hormone (TSH) Urine Opiates Negative Screen Urine Negative Barbiturates Urine Negative Amphetamines Screen Urine Negative Benzodiazepines Screen Urine Cocaine Negative Screen Urine Negative Cannabinoids Blood Gas Blood arterial Blood arterial Specimen Source Arterial Blood 02/12/2019 3:05:2 02/12/2019 4:34:4 Date Drawn 2 PM 3 PM Arterial Blood 7.382 7.483 H pH (Temp corrected ) Arterial Blood 53.8 H 41.2 pCO2 (Temp correct) Arterial Blood 93.3 148.1 H pO2 (Temp corrected ) Arterial Blood 31.3 H 30.2 H HCO3 Arterial Blood 4.5 H 6.2 H Base Excess Arterial Blood 96.8 99.0 H Oxygen Saturati on [place] Test ACCEPTAB ACCEPTAB Arterial Blood Right Radial Right Radial Gas Puncture Site Arterial 0.8 0.9 Blood Carboxyhe moglobin Arterial Blood 0.4 0.4 Methemoglobin Blood Gas A-a 420.6 H 523.7 H O2 Differential Oxyhemoglobin 95.6 97.7 Percent Blood Gas 37.0 37.0 Temperature Blood Gas HFNC VENT - AC Modality FiO2 80.0 100.0 Blood Gas MDA MDA Notified Whom Blood Gas 02/12/2019 3:11:0 02/12/2019 4:37:2 Notified Time 1 PM 4 PM Lactic Acid 1.1 Level Creatine Kinase 70 Creatine Kinase 7.2 Index Creatinine 5.04 H Kinase MB (Mass) Troponin I < 0.012 Blood Gas 16.0 Respiration Rate Blood Gas 16 Actual Respiration Rat e Blood Gas Tidal 500.0 Volume Blood Gas Low 5.0 PEEP Setting Test 02/12/19 21:37 02/13/19 05:31 02/13/19 07:00 Lactic Acid 2.4 *H Level Creatine Kinase 49 Creatine Kinase 5.8 Index Creatinine 2.86 H Kinase MB (Mass) Troponin I < 0.012 < 0.012 White Blood 14.4 H Count Red Blood Count 5.45 H Hemoglobin 14.5 Hematocrit 46.3 Mean 85.0 Corpuscular Volume Mean 26.6 L Corpuscular Hemoglobin Mean 31.3 L Corpuscular Hemoglobin Conc ent Red Cell 19.9 H Distribution Width Platelet Count 365 Mean Platelet 9.1 Volume Immature 1.100 H Granulocytes % Neutrophils % 91.6 H Lymphocytes % 5.3 L Monocytes % 1.8 Eosinophils % 0.0 Basophils % 0.2 Nucleated Red 0.0 Blood Cells % Immature 0.160 H Granulocytes # Neutrophils # 13.2 H Lymphocytes # 0.8 Monocytes # 0.3 Eosinophils # 0.0 Basophils # 0.0 Nucleated Red 0.0 Blood Cells # Sodium Level 139 Potassium Level 3.8 Chloride Level 99 Carbon Dioxide 29 Level Anion Gap 11 Blood Urea 16 Nitrogen Creatinine 0.89 Est Glomerular > 60 Filtrat Rate mL/min Glucose Level 159 Calcium Level 9.1 Phosphorus 3.6 Level Magnesium Level 2.2 Total Bilirubin 0.5 Direct 0.00 Bilirubin Indirect 0.5 Bilirubin Aspartate Amino 42 Transf (AST/SGO T) Alanine 31 Aminotransferas e (ALT/SGPT) Alkaline 72 Phosphatase Total Protein 7.5 Albumin 3.9 Globulin 3.60 H Albumin/Globuli 1.08 n Ratio Thyroid 0.798 Stimulating Hormone (TSH) Blood Gas Blood arterial Specimen Source Arterial Blood 02/13/2019 9:15:5 Date Drawn 9 AM Arterial Blood 7.436 pH (Temp corrected ) Arterial Blood 39.0 pCO2 (Temp correct) Arterial Blood 115.9 H pO2 (Temp corrected ) Arterial Blood 25.7 HCO3 Arterial Blood 1.5 Base Excess Arterial Blood 98.2 H Oxygen Saturati on [place] Test ACCEPTAB Arterial Blood Right Radial Gas Puncture Site Arterial 0.5 Blood Carboxyhe moglobin Arterial Blood 0.3 Methemoglobin Blood Gas A-a 558.1 H O2 Differential Oxyhemoglobin 97.4 Percent Blood Gas 37.0 Temperature Blood Gas 16.0 Respiration Rate Blood Gas 17 Actual Respiration Rat e Blood Gas VENT - AC Modality FiO2 100.0 Blood Gas Tidal 500.0 Volume Blood Gas Low 5.0 PEEP Setting Blood Gas DT Notified Whom Blood Gas 02/13/2019 9:38:4 Notified Time 5 AM Subjective 24 Hr Interval Summary Free Text/Dictation Patient is still on 100% FiO2 spoke To the family at bedside. Exam/Review of Systems Exam Vitals Vital Signs Date Temp Pulse Resp B/P (MAP) Pulse Ox O2 O2 Flow FiO2 Time Delivery Rate 02/13/19 100 08:23 02/13/19 93 08:00 02/13/19 99.0 16 111/53 89 Mechanical 08:00 (72) Ventilator 02/12/19 15.0 15:34 Intake and Output 02/12/19 02/12/19 02/13/19 1515:00 23:00 07:00 IntakeIntake Total 176 ml OutputOutput Total 400 ml BalanceBalance -224 ml Exam GENERAL: intubated, sedated NECK: Thick. Morbidly obese. HEART: Regular rate and rhythm. LUNGS: Decreased breath sounds bilaterally. ABDOMEN: Distended, obese. Positive bowel sounds. EXTREMITIES: Short extremities with 1 to 2+ pitting edema. Results Results 24hrs Laboratory Tests Test 02/12/19 12:55 02/12/19 14:50 02/12/19 15:11 02/12/19 16:18 Urine Color STRAW Urine Clarity CLEAR Urine pH 7.0 Urine Specific 1.003 [place] Urine Ketones NEGATIVE Urine Nitrite NEGATIVE Urine Bilirubin NEGATIVE Urine NEGATIVE Urobilinogen Urine Leukocyte NEGATIVE Esterase Urine 0 Microscopic RBC Urine 1 Microscopic WBC Urine 1+ H Hemoglobin Urine Glucose NEGATIVE Urine Total NEGATIVE Protein Thyroid 2.200 Stimulating Hormone (TSH) Urine Opiates Negative Screen Urine Negative Barbiturates Urine Negative Amphetamines Screen Urine Negative Benzodiazepines Screen Urine Cocaine Negative Screen Urine Negative Cannabinoids Blood Gas Blood arterial Blood arterial Specimen Source Arterial Blood 02/12/2019 3:05:2 02/12/2019 4:34:4 Date Drawn 2 PM 3 PM Arterial Blood 7.382 7.483 H pH (Temp corrected ) Arterial Blood 53.8 H 41.2 pCO2 (Temp correct) Arterial Blood 93.3 148.1 H pO2 (Temp corrected ) Arterial Blood 31.3 H 30.2 H HCO3 Arterial Blood 4.5 H 6.2 H Base Excess Arterial Blood 96.8 99.0 H Oxygen Saturati on [place] Test ACCEPTAB ACCEPTAB Arterial Blood Right Radial Right Radial Gas Puncture Site Arterial 0.8 0.9 Blood Carboxyhe moglobin Arterial Blood 0.4 0.4 Methemoglobin Blood Gas A-a 420.6 H 523.7 H O2 Differential Oxyhemoglobin 95.6 97.7 Percent Blood Gas 37.0 37.0 Temperature Blood Gas HFNC VENT - AC Modality FiO2 80.0 100.0 Blood Gas MDA MDA Notified Whom Blood Gas 02/12/2019 3:11:0 02/12/2019 4:37:2 Notified Time 1 PM 4 PM Lactic Acid 1.1 Level Creatine Kinase 70 Creatine Kinase 7.2 Index Creatinine 5.04 H Kinase MB (Mass) Troponin I < 0.012 Blood Gas 16.0 Respiration Rate Blood Gas 16 Actual Respiration Rat e Blood Gas Tidal 500.0 Volume Blood Gas Low 5.0 PEEP Setting Test 02/12/19 21:37 02/13/19 05:31 02/13/19 07:00 Lactic Acid 2.4 *H Level Creatine Kinase 49 Creatine Kinase 5.8 Index Creatinine 2.86 H Kinase MB (Mass) Troponin I < 0.012 < 0.012 White Blood 14.4 H Count Red Blood Count 5.45 H Hemoglobin 14.5 Hematocrit 46.3 Mean 85.0 Corpuscular Volume Mean 26.6 L Corpuscular Hemoglobin Mean 31.3 L Corpuscular Hemoglobin Conc ent Red Cell 19.9 H Distribution Width Platelet Count 365 Mean Platelet 9.1 Volume Immature 1.100 H Granulocytes % Neutrophils % 91.6 H Lymphocytes % 5.3 L Monocytes % 1.8 Eosinophils % 0.0 Basophils % 0.2 Nucleated Red 0.0 Blood Cells % Immature 0.160 H Granulocytes # Neutrophils # 13.2 H Lymphocytes # 0.8 Monocytes # 0.3 Eosinophils # 0.0 Basophils # 0.0 Nucleated Red 0.0 Blood Cells # Sodium Level 139 Potassium Level 3.8 Chloride Level 99 Carbon Dioxide 29 Level Anion Gap 11 Blood Urea 16 Nitrogen Creatinine 0.89 Est Glomerular > 60 Filtrat Rate mL/min Glucose Level 159 Calcium Level 9.1 Phosphorus 3.6 Level Magnesium Level 2.2 Total Bilirubin 0.5 Direct 0.00 Bilirubin Indirect 0.5 Bilirubin Aspartate Amino 42 Transf (AST/SGO T) Alanine 31 Aminotransferas e (ALT/SGPT) Alkaline 72 Phosphatase Total Protein 7.5 Albumin 3.9 Globulin 3.60 H Albumin/Globuli 1.08 n Ratio Thyroid 0.798 Stimulating Hormone (TSH) Blood Gas Blood arterial Specimen Source Arterial Blood 02/13/2019 9:15:5 Date Drawn 9 AM Arterial Blood 7.436 pH (Temp corrected ) Arterial Blood 39.0 pCO2 (Temp correct) Arterial Blood 115.9 H pO2 (Temp corrected ) Arterial Blood 25.7 HCO3 Arterial Blood 1.5 Base Excess Arterial Blood 98.2 H Oxygen Saturati on [place] Test ACCEPTAB Arterial Blood Right Radial Gas Puncture Site Arterial 0.5 Blood Carboxyhe moglobin Arterial Blood 0.3 Methemoglobin Blood Gas A-a 558.1 H O2 Differential Oxyhemoglobin 97.4 Percent Blood Gas 37.0 Temperature Blood Gas 16.0 Respiration Rate Blood Gas 17 Actual Respiration Rat e Blood Gas VENT - AC Modality FiO2 100.0 Blood Gas Tidal 500.0 Volume Blood Gas Low 5.0 PEEP Setting Blood Gas DT Notified Whom Blood Gas 02/13/2019 9:38:4 Notified Time 5 AM Medications Medication Current Medications Dextrose/Sodium Chloride 1,000 ml @ 20 mls/hr Q24H IV Last administered on 02/13/19at 00:08; Admin Dose 20 MLS/HR; Start 02/12/19 at 15:16 IV Flush (NS 3 ml) 3 ml PER PROTOCOL IV ; Start 02/12/19 at 15:30 Ondansetron HCl (Zofran Inj) 4 mg Q6H PRN IV NAUSEA/VOMITING; Start 02/12/19 at 15:30 Acetaminophen (Tylenol Tab) 650 mg Q6H PRN PO .PAIN 1-3 OR TEMP; Start 02/12/19 at 15:30 Docusate Sodium (Colace) 100 mg Q12H PRN PO .CONSTIPATION; Start 02/12/19 at 15:30 Famotidine (Pepcid Iv) 20 mg Q12 IV Last administered on 02/13/19 09:01; Admin Dose 20 MG; Start 02/12/19 at 16:00 Enoxaparin Sodium (Lovenox) 40 mg DAILY SC Last administered on 02/13/19 08:57; Admin Dose 40 MG; Start 02/13/19 at 09:00 Vancomycin HCl (Vanco Iv Per Pharmacy) VANCOMYCIN PER PHARMACY PER PROTOCOL XX ; Start 02/12/19 at 15:30 Cefepime HCl 50 ml @ 100 mls/hr Q12 IVPB Last administered on 02/13/19 08:56; Admin Dose 100 MLS/HR; Start 02/12/19 at 21:00 Methylprednisolone Sodium Succinate (Solu-Medrol) 60 mg Q8 IV Last administered on 02/13/19 06:13; Admin Dose 60 MG; Start 02/12/19 at 22:00 Albuterol/ Ipratropium (Duoneb) 3 ml Q4H RESP THERAPY HHN Last administered on 02/13/19 09:33; Admin Dose 3 ML; Start 02/12/19 at 17:00 Vancomycin HCl 1.25 gm/Sodium Chloride 250 ml @ 83.333 mls/ hr Q12H IVPB Last administered on 02/13/19 06:27; Admin Dose 83.333 MLS/HR; Start 02/13/19 at 05:00 Furosemide (Lasix) 20 mg DAILY IV Last administered on 02/13/19 08:56; Admin Dose 20 MG; Start 02/13/19 at 09:00 Midazolam HCl 50 ml @ 1 mls/hr TITRATE IV Last administered on 02/13/19 04:59; Admin Dose 6 MLS/HR; Start 02/13/19 at 00:30 Propofol 100 ml @ 3.027 mls/ hr Q12H IV Last administered on 7/4/19at 08:57; Admin Dose 30.27 MLS/HR; Start 02/13/19 at 00:30 Fentanyl 100 ml @ 10 mls/hr TITRATE IV ; Start 02/13/19 at 10:30; Status UNV LORNA LYONS MD Feb 13, 2019 10:51
[2019-02-13] MEDS ORDERED: FENTAnyl (DRIP) 1000 mcg/100mL 100 ML IV SCH (11:30)
[2019-02-13] MEDS: FENTAnyl (DRIP) 1000 mcg/100mL 100 ML IV SCH ×2 (12:15→18:22)
--- NOTE | 2019-02-13 15:04 | CONS ---
Consult Date/Type/Reason Admit Date/Time Feb 12, 2019 at 12:24 Initial Consult Date Type of Consultation: Pulm/CCM Date/Time of Note DATE: 02/13/19 TIME: 15:02 Subjective No acute change - pt still in ICU - intubated - responded to IV lasix - con't to monitor clinically now. ROS: No fever, no chills, no nausea, no vomiting, no diarrhea/constipation - per nurse + SOB Objective Vitals Vital Signs Date Temp Pulse Resp B/P (MAP) Pulse Ox O2 O2 Flow FiO2 Time Delivery Rate 02/13/19 102 28 100/45 92 Mechanical 14:00 (63) Ventilator 02/13/19 99.1 12:00 02/13/19 100 08:23 02/12/19 15.0 15:34 Intake and Output 02/12/19 02/12/19 02/13/19 1515:00 23:00 07:00 IntakeIntake Total 176 ml OutputOutput Total 400 ml BalanceBalance -224 ml Exam General: WN/WD/NAD, AOx 0 - Down sx, sedated HEENT: Unicetric/atraumatic/EOMI (does not follow commands) - intubated NECK: JVD elevated, no thyromegaly Lymph: no lymphadenopathy HEART: regular with no S3, II/ systolic murmur at apex, PMI L LUNGS: Coarse sounds ABD: soft, NT, ND, +BS : Intact Neuro: non focal SKIN: chronic changes EXT: trace edema Results/Medications Result Diagram: 02/13/19 0531 02/13/19 0531 Results 24 hrs Laboratory Tests Test 02/12/19 15:11 02/12/19 16:18 02/12/19 21:37 02/13/19 05:31 Lactic Acid 1.1 2.4 *H Level Creatine Kinase 70 49 Creatine Kinase 7.2 5.8 Index Creatinine 5.04 H 2.86 H Kinase MB (Mass) Troponin I < 0.012 < 0.012 < 0.012 Blood Gas Blood arterial Specimen Source Arterial Blood 02/12/2019 4:34:43 Date Drawn PM Arterial Blood 7.483 H pH (Temp corrected) Arterial Blood 41.2 pCO2 (Temp correct) Arterial Blood 148.1 H pO2 (Temp corrected) Arterial Blood 30.2 H HCO3 Arterial Blood 6.2 H Base Excess Arterial Blood 99.0 H Oxygen Saturatio n [place] Test ACCEPTAB Arterial Blood Right Radial Gas Puncture Site Arterial 0.9 Blood Carboxyhem oglobin Arterial Blood 0.4 Methemoglobin Blood Gas A-a O2 523.7 H Differential Oxyhemoglobin 97.7 Percent Blood Gas 37.0 Temperature Blood Gas 16.0 Respiration Rate Blood Gas Actual 16 Respiration Rate Blood Gas VENT - AC Modality FiO2 100.0 Blood Gas Tidal 500.0 Volume Blood Gas Low 5.0 PEEP Setting Blood Gas MDA Notified Whom Blood Gas 02/12/2019 4:37:24 Notified Time PM White Blood 14.4 H Count Red Blood Count 5.45 H Hemoglobin 14.5 Hematocrit 46.3 Mean Corpuscular 85.0 Volume Mean Corpuscular 26.6 L Hemoglobin Mean Corpuscular 31.3 L Hemoglobin Xiao nt Red Cell 19.9 H Distribution Width Platelet Count 365 Mean Platelet 9.1 Volume Immature 1.100 H Granulocytes % Neutrophils % 91.6 H Lymphocytes % 5.3 L Monocytes % 1.8 Eosinophils % 0.0 Basophils % 0.2 Nucleated Red 0.0 Blood Cells % Immature 0.160 H Granulocytes # Neutrophils # 13.2 H Lymphocytes # 0.8 Monocytes # 0.3 Eosinophils # 0.0 Basophils # 0.0 Nucleated Red 0.0 Blood Cells # Sodium Level 139 Potassium Level 3.8 Chloride Level 99 Carbon Dioxide 29 Level Anion Gap 11 Blood Urea 16 Nitrogen Creatinine 0.89 Est Glomerular > 60 Filtrat Rate mL/min Glucose Level 159 Calcium Level 9.1 Phosphorus Level 3.6 Magnesium Level 2.2 Total Bilirubin 0.5 Direct Bilirubin 0.00 Indirect 0.5 Bilirubin Aspartate Amino 42 Transf (AST/SGOT ) Alanine 31 Aminotransferase (ALT/SGPT) Alkaline 72 Phosphatase Total Protein 7.5 Albumin 3.9 Globulin 3.60 H Albumin/Globulin 1.08 Ratio Thyroid 0.798 Stimulating Hormone (TSH) Test 02/13/19 07:00 Blood Gas Blood arterial Specimen Source Arterial Blood 02/13/2019 9:15:59 Date Drawn AM Arterial Blood 7.436 pH (Temp corrected) Arterial Blood 39.0 pCO2 (Temp correct) Arterial Blood 115.9 H pO2 (Temp corrected) Arterial Blood 25.7 HCO3 Arterial Blood 1.5 Base Excess Arterial Blood 98.2 H Oxygen Saturatio n [place] Test ACCEPTAB Arterial Blood Right Radial Gas Puncture Site Arterial 0.5 Blood Carboxyhem oglobin Arterial Blood 0.3 Methemoglobin Blood Gas A-a O2 558.1 H Differential Oxyhemoglobin 97.4 Percent Blood Gas 37.0 Temperature Blood Gas 16.0 Respiration Rate Blood Gas Actual 17 Respiration Rate Blood Gas VENT - AC Modality FiO2 100.0 Blood Gas Tidal 500.0 Volume Blood Gas Low 5.0 PEEP Setting Blood Gas DT Notified Whom Blood Gas 02/13/2019 9:38:45 Notified Time AM Home Meds Reported Medications [place] Carbonate* ([place]*) 300 Mg Cap, 600 MG PO QHS, CAP 02/12/19 Levothyroxine Sodium* (Levoxyl*) 88 Mcg Tablet, 88 MCG PO BEFORE BREAKFAST, #30 TAB 02/12/19 Loxapine Succinate (Loxapine) 10 Mg Capsule, 10 MG PO QHS, CAP 02/12/19 Cyanocobalamin* (Vitamin B12*) 100 Mcg Tab, 100 MCG PO DAILY, TAB 02/12/19 Loratadine* (Loratadine*) 10 Mg Tablet, 10 MG PO DAILY, #30 TAB 02/12/19 Metformin Hcl* (Metformin Hcl*) 500 Mg Tablet, 500 MG PO WITH BREAKFAST, #30 TAB 02/12/19 Propranolol Hcl* (Propranolol Hcl*) 10 Mg Tablet, 10 MG PO BID, TAB 02/12/19 Ergocalciferol (Vitamin D2) (VITAMIN D2) 50,000 Unit Capsule, 27018 UNIT PO EVERY SUNDAY, CAP 02/12/19 Discontinued Reported Medications Cholecalciferol* (Vitamin D3*) 1,000 Unit Tablet, 1000 UNIT PO DAILY, TAB 11/09/17 Topiramate* (Topamax*) 25 Mg Cap.sprink, 50 MG PO QAM, CAP 11/09/17 Topiramate* (Topamax*) 25 Mg Cap.sprink, 100 MG PO QPM, CAP 11/09/17 Sertraline Hcl* (Sertraline Hcl*) 25 Mg Tablet, 75 MG PO DAILY, #30 TAB 11/09/17 Levothyroxine Sodium* (Levothyroxine Sodium*) 75 Mcg Tablet, 75 MCG PO BEFORE BREAKFAST, #30 TAB 11/09/17 Medications Current Medications Dextrose/Sodium Chloride 1,000 ml @ 20 mls/hr Q24H IV Last administered on 02/13/19at 00:08; Admin Dose 20 MLS/HR; Start 02/12/19 at 15:16 IV Flush (NS 3 ml) 3 ml PER PROTOCOL IV ; Start 02/12/19 at 15:30 Ondansetron HCl (Zofran Inj) 4 mg Q6H PRN IV NAUSEA/VOMITING; Start 02/12/19 at 15:30 Acetaminophen (Tylenol Tab) 650 mg Q6H PRN PO .PAIN 1-3 OR TEMP; Start 02/12/19 at 15:30 Docusate Sodium (Colace) 100 mg Q12H PRN PO .CONSTIPATION; Start 02/12/19 at 15:30 Famotidine (Pepcid Iv) 20 mg Q12 IV Last administered on 02/13/19at 09:01; Admin Dose 20 MG; Start 02/12/19 at 16:00 Enoxaparin Sodium (Lovenox) 40 mg DAILY SC Last administered on 02/13/19at 08:57; Admin Dose 40 MG; Start 02/13/19 at 09:00 Vancomycin HCl (Vanco Iv Per Pharmacy) VANCOMYCIN PER PHARMACY PER PROTOCOL XX ; Start 02/12/19 at 15:30 Cefepime HCl 50 ml @ 100 mls/hr Q12 IVPB Last administered on 02/13/19 08:56; Admin Dose 100 MLS/HR; Start 02/12/19 at 21:00 Methylprednisolone Sodium Succinate (Solu-Medrol) 60 mg Q8 IV Last administered on 02/13/19 15:00; Admin Dose 60 MG; Start 02/12/19 at 22:00 Albuterol/ Ipratropium (Duoneb) 3 ml Q4H RESP THERAPY HHN Last administered on 02/13/19 13:22; Admin Dose 3 ML; Start 02/12/19 at 17:00 Vancomycin HCl 1.25 gm/Sodium Chloride 250 ml @ 83.333 mls/ hr Q12H IVPB Last administered on 02/13/19 06:27; Admin Dose 83.333 MLS/HR; Start 02/13/19 at 05:00 Furosemide (Lasix) 20 mg DAILY IV Last administered on 02/13/19 08:56; Admin Dose 20 MG; Start 02/13/19 at 09:00 Midazolam HCl 50 ml @ 1 mls/hr TITRATE IV Last administered on 02/13/19at 04:59; Admin Dose 6 MLS/HR; Start 02/13/19 at 00:30 Propofol 100 ml @ 3.027 mls/ hr Q12H IV Last administered on 02/13/19at 08:57; Admin Dose 30.27 MLS/HR; Start 02/13/19 at 00:30 Fentanyl 100 ml @ 2.5 mls/hr TITRATE IV ; Start 02/13/19 at 12:00 Miscellaneous Information (*Rx Drug Level Order Reminder*) VANCO TROUGH @ 0,400 ON... 0400 ONCE XX ; Start 02/14/19 at 04:00; Stop 02/14/19 at 04:01 Assessment/Plan Hospital Course (Demo Recall) 1. Respiratory failure, assess for congestive heart failure - now intubated, con't supportive Rx. 2. Lower extremity edema, assess for congestive heart failure- con't diuresis - increased urine output. 3. Tachycardia, improved, status post intubation, likely due to respiratory distress. Sinus tach - better now. 4. Abnormal electrocardiogram with right axis deviation and T-wave flattening. Assess for acute coronary syndrome. 5. Down syndrome. 6. Hypothyroidism - on meds. 7. Diabetes mellitus- con't to keep euglycemic. 8. Obstructive sleep apnea. BRIAN PATTERSON MD Feb 13, 2019 15:04
[2019-02-14] VITALS (58 sets, daily range): BP systolic 56–112; BP diastolic 13–61; PULSE 59–109; RESP 13–28
[2019-02-14] MEDS: ALBUTEROL/IPRATROPIUM (NEB) 3 ML AMP HHN SCH ×4 (00:50→14:17)
[2019-02-14] MEDS: METHYLPREDNISOLONE 125 MG INJ IV SCH ×3 (05:13→21:44)
[2019-02-14] MEDS: VANCOMYCIN HCL 1.25 GM in SOD CHLORIDE 0.9% 250 ML IVPB SCH ×2 (05:13→15:54)
[2019-02-14] MEDS: PROPOFOL 100 ML IV SCH ×5 (06:07→21:55)
--- NOTE | 2019-02-14 09:06 | CONS ---
Consult Date/Type/Reason Admit Date/Time Feb 12, 2019 at 12:24 Initial Consult Date Type of Consult Pulmonary Date/Time of Note DATE: 02/14/19 TIME: 09:05 Subjective HEENT: Neck supple; no JVD; no LAD; + ET tube CVS: RRR, S1 and S2 CHEST: Clear distant breath sounds ABD: Obese, soft, NT, + BS EXT: No c/c: + edema NEURO: sedated on the vent. Moves all extremities. Objective Vital Signs Date Temp Pulse Resp B/P (MAP) Pulse Ox O2 O2 Flow FiO2 Time Delivery Rate 02/14/19 102 22 103/44 93 Mechanical 07:00 (63) Ventilator 02/14/19 90 06:00 02/14/19 98.8 04:00 02/12/19 15.0 15:34 Intake and Output 02/13/19 02/13/19 02/14/19 1515:00 23:00 07:00 IntakeIntake Total 713.66 ml 420.810 ml 178.162 ml OutputOutput Total 725 ml 330 ml 300 ml BalanceBalance -11.34 ml 90.810 ml -121.838 ml Vent Setting Ventilator Support Mode: AC, VC plus Fraction of Inspired Oxygen pe: 90 Positive End Expiratory Pressu: 12.0 Results/Medications Result Diagram: 02/14/19 0404 02/14/19 0404 Results 24 hrs Laboratory Tests Test 02/14/19 04:04 02/14/19 05:00 White Blood Count 18.7 #H Red Blood Count 4.94 Hemoglobin 13.3 Hematocrit 42.4 Mean Corpuscular Volume 85.8 Mean Corpuscular Hemoglobin 26.9 L Mean Corpuscular Hemoglobin Concent 31.4 L Red Cell Distribution Width 19.8 H Platelet Count 327 Mean Platelet Volume 8.6 Immature Granulocytes % 0.800 H Neutrophils % 90.9 H Lymphocytes % 2.8 L Monocytes % 5.3 Eosinophils % 0.0 Basophils % 0.2 Nucleated Red Blood Cells % 0.0 Immature Granulocytes # 0.150 H Neutrophils # 17.0 H Lymphocytes # 0.5 L Monocytes # 1.0 H Eosinophils # 0.0 Basophils # 0.0 Nucleated Red Blood Cells # 0.0 Sodium Level 139 Potassium Level 4.1 Chloride Level 102 Carbon Dioxide Level 30 Anion Gap 7 Blood Urea Nitrogen 25 H Creatinine 1.06 H Est Glomerular Filtrat Rate mL/min > 60 Glucose Level 172 Lactic Acid Level 3.3 *H Calcium Level 8.5 Vancomycin Level Trough 12.9 Blood Gas Specimen Source Blood arterial Arterial Blood Date Drawn 02/14/2019 4:30:56 AM Arterial Blood pH (Temp corrected) 7.417 Arterial Blood pCO2 (Temp correct) 46.3 H Arterial Blood pO2 (Temp corrected) 117.9 H Arterial Blood HCO3 29.2 H Arterial Blood Base Excess 3.8 H Arterial Blood Oxygen Saturation 98.5 H Corwin Test ACCEPTAB Arterial Blood Gas Puncture Site Left Radial Arterial Blood Carboxyhemoglobin 0.6 Arterial Blood Methemoglobin 0.4 Blood Gas A-a O2 Differential 259.0 H Oxyhemoglobin Percent 97.5 Blood Gas Temperature 37.0 Blood Gas Respiration Rate 20.0 Blood Gas Actual Respiration Rate 20 Blood Gas Modality VENT - AC FiO2 60.0 Blood Gas Tidal Volume 400.0 Blood Gas Low PEEP Setting 12.0 Blood Gas Notified Whom MA Blood Gas Notified Time 02/14/2019 4:52:48 AM Medications Current Medications Dextrose/Sodium Chloride 1,000 ml @ 20 mls/hr Q24H IV Last administered on 02/13/19at 00:08; Admin Dose 20 MLS/HR; Start 02/12/19 at 15:16 IV Flush (NS 3 ml) 3 ml PER PROTOCOL IV ; Start 02/12/19 at 15:30 Ondansetron HCl (Zofran Inj) 4 mg Q6H PRN IV NAUSEA/VOMITING; Start 02/12/19 at 15:30 Acetaminophen (Tylenol Tab) 650 mg Q6H PRN PO .PAIN 1-3 OR TEMP; Start 02/12/19 at 15:30 Docusate Sodium (Colace) 100 mg Q12H PRN PO .CONSTIPATION; Start 02/12/19 at 15:30 Famotidine (Pepcid Iv) 20 mg Q12 IV Last administered on 02/13/19at 21:10; Admin Dose 20 MG; Start 02/12/19 at 16:00 Enoxaparin Sodium (Lovenox) 40 mg DAILY SC Last administered on 02/13/19at 08:57; Admin Dose 40 MG; Start 02/13/19 at 09:00 Vancomycin HCl (Vanco Iv Per Pharmacy) VANCOMYCIN PER PHARMACY PER PROTOCOL XX ; Start 02/12/19 at 15:30 Cefepime HCl 50 ml @ 100 mls/hr Q12 IVPB Last administered on 02/13/19 21:10; Admin Dose 100 MLS/HR; Start 02/12/19 at 21:00 Methylprednisolone Sodium Succinate (Solu-Medrol) 60 mg Q8 IV Last administered on 02/14/19 05:13; Admin Dose 60 MG; Start 02/12/19 at 22:00 Albuterol/ Ipratropium (Duoneb) 3 ml Q4H RESP THERAPY HHN Last administered on 02/14/19 08:23; Admin Dose 3 ML; Start 02/12/19 at 17:00 Vancomycin HCl 1.25 gm/Sodium Chloride 250 ml @ 83.333 mls/ hr Q12H IVPB Last administered on 02/14/19 05:13; Admin Dose 83.333 MLS/HR; Start 02/13/19 at 05:00 Furosemide (Lasix) 20 mg DAILY IV Last administered on 02/13/19 08:56; Admin Dose 20 MG; Start 02/13/19 at 09:00 Midazolam HCl 50 ml @ 1 mls/hr TITRATE IV Last administered on 02/13/19 04:59; Admin Dose 6 MLS/HR; Start 02/13/19 at 00:30 Propofol 100 ml @ 3.027 mls/ hr Q12H IV Last administered on 02/14/19 06:07; Admin Dose 12.108 MLS/HR; Start 02/13/19 at 00:30 Fentanyl 100 ml @ 2.5 mls/hr TITRATE IV Last administered on 02/13/19 18:22; Admin Dose 20 MLS/HR; Start 02/13/19 at 12:00 Assessment/Plan Hospital Course (Demo Recall) IMP: 1. Hypoxemic Respiratory Failure: imaging findings consistent with a multifocal pneumonia. Cannot exclude co-existing CHF, especially in view of history of Down's. BNP may be unreliable given obesity. 2. Down's Syndrome 3. EILEEN 4. HTN 5. DM RECS: 1. Continue broad-spectrum abx 2. Follow-up cultures 3. Vent--> change to VC+ VT target 400 ml; PEEP 12 4. Titrate FI02 to maintain PaO2> 55-60 mm Hg 5. Add Lasix. 6. Start TF/Free H20 discussed with staff at bedside 40 min cc time MARY ANN MCKEON MD, [facility] Feb 14, 2019 09:06
--- NOTE | 2019-02-14 09:37 | CONS ---
Consult Date/Type/Reason Admit Date/Time Feb 12, 2019 at 12:24 Initial Consult Date Type of Consultation: Pulm/CCM Date/Time of Note DATE: 02/14/19 TIME: 09:34 Subjective NO acute events - pt more comfortable now - no CP- responded to diuresis - con't to diurese today with 40 IV lasix - con't resp Rx. ROS: No fever, no chills, no nausea, no vomiting, no diarrhea/constipation No recent weight changes No chest pain, no PND, no orthopnea - still intubated , + SOB No dizziness, blurred vision No thirst, no heat or cold intolerance Objective Vitals Vital Signs Date Temp Pulse Resp B/P (MAP) Pulse Ox O2 O2 Flow FiO2 Time Delivery Rate 02/14/19 94 20 102/42 97 Mechanical 09:00 (62) Ventilator 02/14/19 90 06:00 02/14/19 98.8 04:00 02/12/19 15.0 15:34 Intake and Output 02/13/19 02/13/19 02/14/19 1515:00 23:00 07:00 IntakeIntake Total 713.66 ml 420.810 ml 178.162 ml OutputOutput Total 725 ml 330 ml 300 ml BalanceBalance -11.34 ml 90.810 ml -121.838 ml Exam General: WN/WD/NAD, AOx comfortable HEENT: Unicetric/atraumatic/EOMI (does not follow commands) intubated NECK: JVD elevated, no thyromegaly Lymph: no lymphadenopathy HEART: regular with no S3, II/ systolic murmur at apex LUNGS: Coarse sounds ABD: soft, NT, ND, +BS : Intact Neuro: non focal SKIN: chronic changes EXT: 1+edema Results/Medications Result Diagram: 02/14/19 0404 02/14/19 0404 Results 24 hrs Laboratory Tests Test 02/14/19 04:04 02/14/19 05:00 White Blood Count 18.7 #H Red Blood Count 4.94 Hemoglobin 13.3 Hematocrit 42.4 Mean Corpuscular Volume 85.8 Mean Corpuscular Hemoglobin 26.9 L Mean Corpuscular Hemoglobin Concent 31.4 L Red Cell Distribution Width 19.8 H Platelet Count 327 Mean Platelet Volume 8.6 Immature Granulocytes % 0.800 H Neutrophils % 90.9 H Lymphocytes % 2.8 L Monocytes % 5.3 Eosinophils % 0.0 Basophils % 0.2 Nucleated Red Blood Cells % 0.0 Immature Granulocytes # 0.150 H Neutrophils # 17.0 H Lymphocytes # 0.5 L Monocytes # 1.0 H Eosinophils # 0.0 Basophils # 0.0 Nucleated Red Blood Cells # 0.0 Sodium Level 139 Potassium Level 4.1 Chloride Level 102 Carbon Dioxide Level 30 Anion Gap 7 Blood Urea Nitrogen 25 H Creatinine 1.06 H Est Glomerular Filtrat Rate mL/min > 60 Glucose Level 172 Lactic Acid Level 3.3 *H Calcium Level 8.5 Vancomycin Level Trough 12.9 Blood Gas Specimen Source Blood arterial Arterial Blood Date Drawn 02/14/2019 4:30:56 AM Arterial Blood pH (Temp corrected) 7.417 Arterial Blood pCO2 (Temp correct) 46.3 H Arterial Blood pO2 (Temp corrected) 117.9 H Arterial Blood HCO3 29.2 H Arterial Blood Base Excess 3.8 H Arterial Blood Oxygen Saturation 98.5 H [place]win Test ACCEPTAB Arterial Blood Gas Puncture Site Left Radial Arterial Blood Carboxyhemoglobin 0.6 Arterial Blood Methemoglobin 0.4 Blood Gas A-a O2 Differential 259.0 H Oxyhemoglobin Percent 97.5 Blood Gas Temperature 37.0 Blood Gas Respiration Rate 20.0 Blood Gas Actual Respiration Rate 20 Blood Gas Modality VENT - AC FiO2 60.0 Blood Gas Tidal Volume 400.0 Blood Gas Low PEEP Setting 12.0 Blood Gas Notified Whom MA Blood Gas Notified Time 02/14/2019 4:52:48 AM Home Meds Reported Medications [place] Carbonate* ([place]*) 300 Mg Cap, 600 MG PO QHS, CAP 02/12/19 Levothyroxine Sodium* (Levoxyl*) 88 Mcg Tablet, 88 MCG PO BEFORE BREAKFAST, #30 TAB 02/12/19 Loxapine Succinate (Loxapine) 10 Mg Capsule, 10 MG PO QHS, CAP 02/12/19 Cyanocobalamin* (Vitamin B12*) 100 Mcg Tab, 100 MCG PO DAILY, TAB 02/12/19 Loratadine* (Loratadine*) 10 Mg Tablet, 10 MG PO DAILY, #30 TAB 02/12/19 Metformin Hcl* (Metformin Hcl*) 500 Mg Tablet, 500 MG PO WITH BREAKFAST, #30 TAB 02/12/19 Propranolol Hcl* (Propranolol Hcl*) 10 Mg Tablet, 10 MG PO BID, TAB 02/12/19 Ergocalciferol (Vitamin D2) (VITAMIN D2) 50,000 Unit Capsule, 40863 UNIT PO Y SUNDAY, CAP 02/12/19 Discontinued Reported Medications Cholecalciferol* (Vitamin D3*) 1,000 Unit Tablet, 1000 UNIT PO DAILY, TAB 11/09/17 Topiramate* (Topamax*) 25 Mg Cap.sprink, 50 MG PO QAM, CAP 11/09/17 Topiramate* (Topamax*) 25 Mg Cap.sprink, 100 MG PO QPM, CAP 11/09/17 Sertraline Hcl* (Sertraline Hcl*) 25 Mg Tablet, 75 MG PO DAILY, #30 TAB 11/09/17 Levothyroxine Sodium* (Levothyroxine Sodium*) 75 Mcg Tablet, 75 MCG PO BEFORE BREAKFAST, #30 TAB 11/09/17 Medications Current Medications Dextrose/Sodium Chloride 1,000 ml @ 20 mls/hr Q24H IV Last administered on 02/13/19at 00:08; Admin Dose 20 MLS/HR; Start 02/12/19 at 15:16 IV Flush (NS 3 ml) 3 ml PER PROTOCOL IV ; Start 02/12/19 at 15:30 Ondansetron HCl (Zofran Inj) 4 mg Q6H PRN IV NAUSEA/VOMITING; Start 02/12/19 at 15:30 Acetaminophen (Tylenol Tab) 650 mg Q6H PRN PO .PAIN 1-3 OR TEMP; Start 02/12/19 at 15:30 Docusate Sodium (Colace) 100 mg Q12H PRN PO .CONSTIPATION; Start 02/12/19 at 15 :30 Famotidine (Pepcid Iv) 20 mg Q12 IV Last administered on 02/13/19at 21:10; Admin Dose 20 MG; Start 02/12/19 at 16:00 Enoxaparin Sodium (Lovenox) 40 mg DAILY SC Last administered on 02/13/19at 08:57; Admin Dose 40 MG; Start 02/13/19 at 09:00 Vancomycin HCl (Vanco Iv Per Pharmacy) VANCOMYCIN PER PHARMACY PER PROTOCOL XX ; Start 02/12/19 at 15:30 Cefepime HCl 50 ml @ 100 mls/hr Q12 IVPB Last administered on 7/4/19at 21:10; Admin Dose 100 MLS/HR; Start 02/12/19 at 21:00 Methylprednisolone Sodium Succinate (Solu-Medrol) 60 mg Q8 IV Last administered on 02/14/19 05:13; Admin Dose 60 MG; Start 02/12/19 at 22:00 Albuterol/ Ipratropium (Duoneb) 3 ml Q4H RESP THERAPY HHN Last administered on 02/14/19 08:23; Admin Dose 3 ML; Start 02/12/19 at 17:00 Vancomycin HCl 1.25 gm/Sodium Chloride 250 ml @ 83.333 mls/ hr Q12H IVPB Last administered on 02/14/19 05:13; Admin Dose 83.333 MLS/HR; Start 02/13/19 at 05:00 Furosemide (Lasix) 20 mg DAILY IV Last administered on 02/13/19 08:56; Admin Dose 20 MG; Start 02/13/19 at 09:00 Midazolam HCl 50 ml @ 1 mls/hr TITRATE IV Last administered on 02/13/19 04:59; Admin Dose 6 MLS/HR; Start 02/13/19 at 00:30 Propofol 100 ml @ 3.027 mls/ hr Q12H IV Last administered on 02/14/19 06:07; Admin Dose 12.108 MLS/HR; Start 02/13/19 at 00:30 Fentanyl 100 ml @ 2.5 mls/hr TITRATE IV Last administered on 02/13/19 18:22; Admin Dose 20 MLS/HR; Start 02/13/19 at 12:00 Furosemide (Lasix) 40 mg DAILY IV ; Start 02/14/19 at 09:30; Status UNV Assessment/Plan Hospital Course (Demo Recall) 1. Respiratory failure, assess for congestive heart failure - now intubated, con't supportive Rx. Con't to wean as tolerated. 2. Lower extremity edema, assess for congestive heart failure- con't diuresis - increased urine output. On meds now. 3. Tachycardia, improved, status post intubation, likely due to respiratory distress. Sinus tach - better now. Treated. 4. Abnormal electrocardiogram with right axis deviation and T-wave flattening. Assess for acute coronary syndrome. 5. Down syndrome. Supportive Rx as needed. 6. Hypothyroidism - on meds. 7. Diabetes mellitus- con't to keep euglycemic. 8. Obstructive sleep apnea- on vent. 9. CHF - diast HF - acute on chronic, con'y IV lasix. BRIAN PATTERSON MD Feb 14, 2019 09:37
[2019-02-14] MEDS: CEFEPIME 1GM/50 ML (PMX) 50 ML IVPB SCH ×2 (10:23→20:02)
[2019-02-14] MEDS: ENOXAPARIN 40 MG/0.4 ML SYG SC SCH (10:25)
[2019-02-14] MEDS ORDERED: DEXTROSE 50% 50 ML SYRINGE IV PRN ×2 (10:30)
[2019-02-14] MEDS ORDERED: GLUCOSE GEL 15 GRAM TUBE PO PRN ×2 (10:30)
[2019-02-14] MEDS ORDERED: GLUCOSE GEL 15 GRAM TUBE BUCCAL PRN (10:30)
[2019-02-14] MEDS ORDERED: GLUCAGON 1 MG INJ IM PRN (10:30)
[2019-02-14] MEDS: FAMOTIDINE 20 MG INJ IV SCH ×2 (10:31→20:02)
[2019-02-14] MEDS: FUROSEMIDE 40 MG INJ IV SCH (10:32)
[2019-02-14] MEDS: FENTAnyl (DRIP) 1000 mcg/100mL 100 ML IV SCH ×2 (10:39→22:34)
--- NOTE | 2019-02-14 11:17 | RADRPT ---
Echocardiogram Report [id number] : 1990 (28y 10m)Study Date: 02/13/2019 8:31:03 AM Gender: FAccession #: [id number] Tech: Marco Tang RDCS Location: ICU 103-A Ref.Physician: LORNA LYONS Height(Cm): BSA: Weight(Kg): Quality: Technically Difficult StudyOrder Physician: LORNA LYONS Account #: Procedures: Echocardiographic Report: Transthoracic echocardiogram with complete 2D, M-Mode, and doppler examination. Indications: Resp failure. Measurements: 2D/M Mode Doppler Measurement Value Normal Range Measurement Value Normal Range LVIDd 2D 3.5 [ 3.8 - 5.2 ] cm AV Peak Saeid 1.7 [ 100.0 - 170.0 ] cm/se c LVIDs 2D 2.3 [ 2.2 - 3.5 ] cm AV Peak PG 11.0 [ 2.0 - 9.0 ] mmHg LVPWd 2D 0.8 [ 0.6 - 0.9 ] cm LVOT Peak Saeid 0.9 [ 70.0 - 110.0 ] cm/sec IVSd 2D 0.7 [ 0.6 - 0.9 ] cm LVOT Peak PG 3.0 [ 2.0 - 6.0 ] mmHg AoR Diam 2D 2.3 [ 2.3 - 3.1 ] cm MV E Peak Saeid 1.1 [ 60.0 - 130.0 ] cm/sec EDV 2D 52.6 [ 46.0 - 106.0 ] ml MV A Peak Saeid 1.0 [ 100.0 - 120.0 ] cm/se c ESV 2D 18.5 [ 14.0 - 42.0 ] ml MV E/A 1.1 [ 0.8 - 1.5 ] ratio EF 2D 64.8 [ 54.0 - 74.0 ] percent MV PHT 46.0 [ 20.0 - 100.0 ] msec LA Dimen 2D 1.9 [ 2.7 - 3.8 ] cm MV Decel Time 158 [ 104 - 258 ] msec MV Decel [place] 7 Lat E` Saeid 0.1 [ 10.0 - 15.0 ] cm/sec Lateral E/E` 14.0 [ 1.0 - 2.0 ] ratio Med E` Saeid 0.1 cm/sec MV E/A 1.1 [ 0.8 - 1.5 ] ratio MVA PHT 4.8 [ 2.0 - 4.0 ] cm2 PV Peak Saeid 1.4 [ 40.0 - 80.0 ] cm/sec PV Peak PG 7.0 mmHg Findings: Left Ventricle: Normal left ventricular systolic function. Normal left ventricular cavity size. Normal left ventricular wall thickness. Ejection fraction is visually estimated at 50-55 %. Right Ventricle: Normal right ventricular size. Normal right ventricular systolic function. Left Atrium: The left atrium is normal in size. Right Atrium: The right atrium is normal in size. Atrial Septum: Normal atrial septum. Ventricular septum: Normal/intact ventricular septum. Mitral Valve: Normal appearance of the mitral valve. No mitral valve regurgitation is seen. Aortic Valve: Normal appearance of the aortic valve. No aortic regurgitation. Tricuspid Valve: Normal appearance of the tricuspid valve. No evidence of tricuspid regurgitation. Pulmonic Valve: Normal pulmonic valve appearance. No evidence of pulmonic regurgitation. Pericardium: Normal pericardium with no significant pericardial effusion. Aorta: Normal aortic root. IVC: The IVC is not well visualized. Conclusions: Normal left ventricular systolic function. Normal left ventricular cavity size. Normal left ventricular wall thickness. Ejection fraction is visually estimated at 50-55 %. Normal appearance of the mitral valve. No mitral valve regurgitation is seen. Normal appearance of the tricuspid valve. No evidence of tricuspid regurgitation. Electronically Signed By: Philip Fraser 2019-02-14 11:16:13 PDT
[2019-02-14] MEDS: INSULIN ASPART [NOVOLOG] 3 ML PEN SC SCH ×3 (12:49→20:06)
--- NOTE | 2019-02-14 13:56 | RADRPT ---
Vent Rate: 101 bpm RR Interval: 592 msec SC Interval: 128 msec QRS Duration: 76 msec QT Interval: 351 msec QTC Interval: 456 msec P-R-T [place]: 28 - 75 - 16 degrees Sinus tachycardia...rate> 99 Electronically Signed By: Russell Flores
--- NOTE | 2019-02-14 14:17 | PN ---
CARY GIPSON 02/14/19 1417: Date/Time of Note Date/Time of Note DATE: 02/14/19 TIME: 14:16 Assessment/Plan VTE Prophylaxis Risk score (from [facility] [place])>0 risk: 7 SCD applied (from [facility] [place]): Yes SCD contraindicated: other Pharmacological prophylaxis: LMWH Lines/Catheters IV Catheter Type (from [facility] Mid Line Central line still needed: Yes Urinary Cath still in place: Yes Reason Cath still needed: urinary retention Assessment/Plan Hospital Course 1. Severe altered mental status likely secondary to metabolic encephalopathy, likely secondary to CO2 narcosis. The patient is also on antidepressants and loxapine at home. Surprisingly on ABG CO2 levels were not high 2. Hypoxic respiratory failure s/p intubation secondary to pneumonia/CHF 3. Lactic acidosis. Respiratory acidosis. 4. Morbid obesity. 5. Down syndrome. 6. Hypertension. 7. Diabetes. 8. History of ventral hernia repair. 9. Leukocytosis secondary to pneumonia 10. Hypothyroidism 11. KIRIT, more likely due to sepsis Assessment/Plan -ICU care -c/w tube feed -Vent management per pulmonary. -cardiology input is appreciated -Sedation per pulmonary -on 90% of FiO2 -c. with vancomycin/cefepime -cw with nebs/steroids -cw iv lasix 20 - ECHO 50-55 %. - GI Famotidine BID -DVT prophylaxis Lovenox -pt condition is guarded Result Diagram: 02/14/19 0404 02/14/19 0404 Results 24hrs Laboratory Tests Test 02/14/19 04:04 02/14/19 05:00 02/14/19 12:47 White Blood Count 18.7 #H Red Blood Count 4.94 Hemoglobin 13.3 Hematocrit 42.4 Mean Corpuscular Volume 85.8 Mean Corpuscular Hemoglobin 26.9 L Mean Corpuscular 31.4 L Hemoglobin Concent Red Cell Distribution Width 19.8 H Platelet Count 327 Mean Platelet Volume 8.6 Immature Granulocytes % 0.800 H Neutrophils % 90.9 H Lymphocytes % 2.8 L Monocytes % 5.3 Eosinophils % 0.0 Basophils % 0.2 Nucleated Red Blood Cells % 0.0 Immature Granulocytes # 0.150 H Neutrophils # 17.0 H Lymphocytes # 0.5 L Monocytes # 1.0 H Eosinophils # 0.0 Basophils # 0.0 Nucleated Red Blood Cells # 0.0 Sodium Level 139 Potassium Level 4.1 Chloride Level 102 Carbon Dioxide Level 30 Anion Gap 7 Blood Urea Nitrogen 25 H Creatinine 1.06 H Est Glomerular Filtrat > 60 Rate mL/min Glucose Level 172 Lactic Acid Level 3.3 *H Calcium Level 8.5 Vancomycin Level Trough 12.9 Blood Gas Specimen Source Blood arterial Arterial Blood Date Drawn 02/14/2019 4:30:56 AM Arterial Blood pH 7.417 (Temp corrected) Arterial Blood pCO2 46.3 H (Temp correct) Arterial Blood pO2 117.9 H (Temp corrected) Arterial Blood HCO3 29.2 H Arterial Blood Base Excess 3.8 H Arterial Blood 98.5 H Oxygen Saturation Corwin Test ACCEPTAB Arterial Blood Gas Left Radial Puncture Site Arterial 0.6 Blood Carboxyhemoglobin Arterial Blood Methemoglobin 0.4 Blood Gas A-a O2 Differential 259.0 H Oxyhemoglobin Percent 97.5 Blood Gas Temperature 37.0 Blood Gas Respiration Rate 20.0 Blood Gas Actual 20 Respiration Rate Blood Gas Modality VENT - AC FiO2 60.0 Blood Gas Tidal Volume 400.0 Blood Gas Low PEEP Setting 12.0 Blood Gas Notified Whom MA Blood Gas Notified Time 02/14/2019 4:52:48 AM Bedside Glucose 141 Subjective 24 Hr Interval Summary Subjective hx not possible: pt critical, pt critical status Exam/Review of Systems Exam Vitals Vital Signs Date Temp Pulse Resp B/P (MAP) Pulse Ox O2 O2 Flow FiO2 Time Delivery Rate 02/14/19 95 18 99/41 (60) 95 Mechanical 13:00 Ventilator 02/14/19 99.0 12:00 02/14/19 90 11:00 02/12/19 15.0 15:34 Intake and Output 02/13/19 02/13/19 02/14/19 1515:00 23:00 07:00 IntakeIntake Total 713.66 ml 420.810 ml 178.162 ml OutputOutput Total 725 ml 330 ml 340 ml BalanceBalance -11.34 ml 90.810 ml -161.838 ml Exam orally intubated Constitutional: obese, other (sedated ) Head: normocephalic Neck: other (short neck) Respiratory: diminished breath sounds Cardiovascular: regular rate and rhythm Gastrointestinal: other (NG tube) Extremities: edema Results Result Diagram: 02/14/19 0404 02/14/19 0404 Results 24hrs Laboratory Tests Test 02/14/19 04:04 02/14/19 05:00 02/14/19 12:47 White Blood Count 18.7 #H Red Blood Count 4.94 Hemoglobin 13.3 Hematocrit 42.4 Mean Corpuscular Volume 85.8 Mean Corpuscular Hemoglobin 26.9 L Mean Corpuscular 31.4 L Hemoglobin Concent Red Cell Distribution Width 19.8 H Platelet Count 327 Mean Platelet Volume 8.6 Immature Granulocytes % 0.800 H Neutrophils % 90.9 H Lymphocytes % 2.8 L Monocytes % 5.3 Eosinophils % 0.0 Basophils % 0.2 Nucleated Red Blood Cells % 0.0 Immature Granulocytes # 0.150 H Neutrophils # 17.0 H Lymphocytes # 0.5 L Monocytes # 1.0 H Eosinophils # 0.0 Basophils # 0.0 Nucleated Red Blood Cells # 0.0 Sodium Level 139 Potassium Level 4.1 Chloride Level 102 Carbon Dioxide Level 30 Anion Gap 7 Blood Urea Nitrogen 25 H Creatinine 1.06 H Est Glomerular Filtrat > 60 Rate mL/min Glucose Level 172 Lactic Acid Level 3.3 *H Calcium Level 8.5 Vancomycin Level Trough 12.9 Blood Gas Specimen Source Blood arterial Arterial Blood Date Drawn 02/14/2019 4:30:56 AM Arterial Blood pH 7.417 (Temp corrected) Arterial Blood pCO2 46.3 H (Temp correct) Arterial Blood pO2 117.9 H (Temp corrected) Arterial Blood HCO3 29.2 H Arterial Blood Base Excess 3.8 H Arterial Blood 98.5 H Oxygen Saturation Corwin Test ACCEPTAB Arterial Blood Gas Left Radial Puncture Site Arterial 0.6 Blood Carboxyhemoglobin Arterial Blood Methemoglobin 0.4 Blood Gas A-a O2 Differential 259.0 H Oxyhemoglobin Percent 97.5 Blood Gas Temperature 37.0 Blood Gas Respiration Rate 20.0 Blood Gas Actual 20 Respiration Rate Blood Gas Modality VENT - AC FiO2 60.0 Blood Gas Tidal Volume 400.0 Blood Gas Low PEEP Setting 12.0 Blood Gas Notified Whom MA Blood Gas Notified Time 02/14/2019 4:52:48 AM Bedside Glucose 141 Medications Medication Current Medications IV Flush (NS 3 ml) 3 ml PER PROTOCOL IV ; Start 02/12/19 at 15:30 Ondansetron HCl (Zofran Inj) 4 mg Q6H PRN IV NAUSEA/VOMITING; Start 02/12/19 at 15:30 Acetaminophen (Tylenol Tab) 650 mg Q6H PRN PO .PAIN 1-3 OR TEMP; Start 02/12/19 at 15:30 Docusate Sodium (Colace) 100 mg Q12H PRN PO .CONSTIPATION; Start 02/12/19 at 15:30 Famotidine (Pepcid Iv) 20 mg Q12 IV Last administered on 02/14/19 10:31; Admin Dose 20 MG; Start 02/12/19 at 16:00 Enoxaparin Sodium (Lovenox) 40 mg DAILY SC Last administered on 02/14/19 10:25; Admin Dose 40 MG; Start 02/13/19 at 09:00 Vancomycin HCl (Vanco Iv Per Pharmacy) VANCOMYCIN PER PHARMACY PER PROTOCOL XX ; Start 02/12/19 at 15:30 Cefepime HCl 50 ml @ 100 mls/hr Q12 IVPB Last administered on 02/14/19 10:23; Admin Dose 100 MLS/HR; Start 02/12/19 at 21:00 Methylprednisolone Sodium Succinate (Solu-Medrol) 60 mg Q8 IV Last administered on 02/14/19 05:13; Admin Dose 60 MG; Start 02/12/19 at 22:00 Albuterol/ Ipratropium (Duoneb) 3 ml Q4H RESP THERAPY HHN Last administered on 02/14/19 08:23; Admin Dose 3 ML; Start 02/12/19 at 17:00 Vancomycin HCl 1.25 gm/Sodium Chloride 250 ml @ 83.333 mls/ hr Q12H IVPB Last administered on 02/14/19 05:13; Admin Dose 83.333 MLS/HR; Start 02/13/19 at 05:00 Midazolam HCl 50 ml @ 1 mls/hr TITRATE IV Last administered on 02/13/19 04:59; Admin Dose 6 MLS/HR; Start 02/13/19 at 00:30 Propofol 100 ml @ 3.027 mls/ hr Q12H IV Last administered on 02/14/19 11:06; Admin Dose 30.27 MLS/HR; Start 02/13/19 at 00:30 Fentanyl 100 ml @ 2.5 mls/hr TITRATE IV Last administered on 02/14/19 10:39; Admin Dose 10 MLS/HR; Start 02/13/19 at 12:00 Furosemide (Lasix) 40 mg DAILY IV Last administered on 02/14/19at 10:32; Admin Dose 40 MG; Start 02/14/19 at 09:30 Levothyroxine Sodium (Synthroid) 88 mcg BEFORE BREAKFAST PO ; Start 02/15/19 at 07:00 Diagnostic Test (Pha) (Accu-Chek) 1 ea 02 XX ; Start 02/15/19 at 02:00 Insulin Aspart (Novolog Insulin Pen) NOVOLOG *MILD* ALGORITHM WITH MEALS BEDTIME SC Last administered on 02/14/19at 12:49; Admin Dose 1 UNIT; Start 02/14/19 at 11:30 Miscellaneous Information 1 ea NOTE XX ; Start 02/14/19 at 10:30 Glucose (Glutose) 15 gm Q15M PRN PO DECREASED GLUCOSE; Start 02/14/19 at 10:30 Glucose (Glutose) 22.5 gm Q15M PRN PO DECREASED GLUCOSE; Start 02/14/19 at 10:30 Dextrose (D50w Syringe) 25 ml Q15M PRN IV DECREASED GLUCOSE; Start 02/14/19 at 10:30 Dextrose (D50w Syringe) 50 ml Q15M PRN IV DECREASED GLUCOSE; Start 02/14/19 at 10:30 Glucagon (Glucagen) 1 mg Q15M PRN IM DECREASED GLUCOSE; Start 02/14/19 at 10:30 Glucose (Glutose) 15 gm Q15M PRN BUCCAL DECREASED GLUCOSE; Start 02/14/19 at 10:30 LORNA LYONS MD 02/14/19 1510: Assessment/Plan Assessment/Plan Assessment/Plan STILL ON HIGHF FI02 DUPLEX ARMA AND LEGS TO R/O DVT Result Diagram: 02/14/19 0404 02/14/19 0404 CARY GIPSON Feb 14, 2019 14:17 LORNA LYONS MD Feb 14, 2019 15:10
[2019-02-14] MEDS ORDERED: LIDOCAINE 1% (MPF) 5 ML VIAL SC ONE (16:30)
[2019-02-14] MEDS: ACETAMINOPHEN 325 MG TAB PO PRN (17:42)
[2019-02-14] MEDS ORDERED: ALBUTEROL HFA 8 GM INHALER ONE (19:12)
[2019-02-14] MEDS: IPRATROPIUM (HFA) 12.9 GM INHALER INH SCH (21:12)
[2019-02-14] MEDS: ALBUTEROL HFA 8 GM INHALER INH SCH (21:12)
[2019-02-15] VITALS (74 sets, daily range): BP systolic 93–125; BP diastolic 40–89; PULSE 69–95; RESP 18–21
[2019-02-15] MEDS: IPRATROPIUM (HFA) 12.9 GM INHALER INH SCH ×6 (00:51→19:59)
[2019-02-15] MEDS: ALBUTEROL HFA 8 GM INHALER INH SCH ×6 (00:51→19:59)
[2019-02-15] MEDS ORDERED: ACCU-CHEK XX SCH ×2 (02:00)
[2019-02-15] MEDS: PROPOFOL 100 ML IV SCH ×2 (03:22→09:17)
[2019-02-15] MEDS: VANCOMYCIN HCL 1.25 GM in SOD CHLORIDE 0.9% 250 ML IVPB SCH ×2 (05:25→17:49)
[2019-02-15] MEDS: METHYLPREDNISOLONE 125 MG INJ IV SCH (05:25)
[2019-02-15] MEDS: INSULIN ASPART [NOVOLOG] 3 ML PEN SC SCH ×5 (05:33→21:11)
[2019-02-15] MEDS: LEVOTHYROXINE 88 MCG TAB PO SCH (06:05)
--- NOTE | 2019-02-15 08:33 | CONS ---
Consult Date/Type/Reason Admit Date/Time Feb 12, 2019 at 12:24 Initial Consult Date Type of Consult Pulmonary Date/Time of Note DATE: 02/15/19 TIME: 08:32 Subjective FiO2 requirement slowly decreasing. Continues mechanical ventilation. Tube feeding as tolerated. Pending PICC line. Objective Vital Signs Date Temp Pulse Resp B/P (MAP) Pulse Ox O2 O2 Flow FiO2 Time Delivery Rate 02/15/19 76 21 96 70 07:37 02/15/19 110/54 06:30 (72) 02/15/19 Mechanical 06:00 Ventilator 02/15/19 99.2 04:00 02/12/19 15.0 15:34 Intake and Output 02/14/19 02/14/19 02/15/19 1515:00 23:00 07:00 IntakeIntake Total 210 ml 601.470 ml 627.972 ml OutputOutput Total 670 ml 300 ml 370 ml BalanceBalance -460 ml 301.470 ml 257.972 ml Exam HEENT: Neck supple; no JVD; no LAD; + ET tube CVS: RRR, S1 and S2 CHEST: Clear distant breath sounds ABD: Obese, soft, NT, + BS EXT: No c/c: + edema NEURO: sedated on the vent. Moves all extremities. Vent Setting Ventilator Support Mode: AC, VC plus Fraction of Inspired Oxygen pe: 70 Positive End Expiratory Pressu: 12.0 Results/Medications Result Diagram: 02/15/19 0545 02/15/19 0545 Results 24 hrs Laboratory Tests Test 02/14/19 12:47 02/14/19 17:38 02/14/19 20:06 02/15/19 05:24 Bedside Glucose 141 140 134 143 Test 02/15/19 05:45 White Blood Count 14.6 #H Red Blood Count 4.79 Hemoglobin 13.2 Hematocrit 41.7 Mean Corpuscular Volume 87.1 Mean Corpuscular 27.6 L Hemoglobin Mean Corpuscular 31.7 L Hemoglobin Concent Red Cell Distribution 20.1 H Width Platelet Count 260 # Mean Platelet Volume 11.3 #H Immature Granulocytes % 0.900 H Neutrophils % 88.9 H Lymphocytes % 3.6 L Monocytes % 6.4 Eosinophils % 0.1 Basophils % 0.1 Nucleated Red Blood 0.2 H Cells % Immature Granulocytes # 0.130 H Neutrophils # 13.0 H Lymphocytes # 0.5 L Monocytes # 0.9 Eosinophils # 0.0 Basophils # 0.0 Nucleated Red Blood 0.0 Cells # Sodium Level 141 Potassium Level 4.6 Chloride Level 106 Carbon Dioxide Level 28 Anion Gap 7 Blood Urea Nitrogen 21 H Creatinine 0.79 Est Glomerular Filtrat > 60 Rate mL/min Glucose Level 146 Calcium Level 8.2 L Total Bilirubin 0.3 Direct Bilirubin 0.00 Indirect Bilirubin 0.3 Aspartate Amino 33 Transf (AST/SGOT) Alanine 45 Aminotransferase (ALT/SG PT) Alkaline Phosphatase 50 Total Protein 6.3 Albumin 3.2 L Globulin 3.10 Albumin/Globulin Ratio 1.03 Medications Current Medications IV Flush (NS 3 ml) 3 ml PER PROTOCOL IV ; Start 02/12/19 at 15:30 Ondansetron HCl (Zofran Inj) 4 mg Q6H PRN IV NAUSEA/VOMITING; Start 02/12/19 at 15:30 Acetaminophen (Tylenol Tab) 650 mg Q6H PRN PO .PAIN 1-3 OR TEMP Last administer ed on 02/14/19at 17:42; Admin Dose 650 MG; Start 02/12/19 at 15:30 Docusate Sodium (Colace) 100 mg Q12H PRN PO .CONSTIPATION; Start 02/12/19 at 15:30 Famotidine (Pepcid Iv) 20 mg Q12 IV Last administered on 02/14/19at 20:02; Admin Dose 20 MG; Start 02/12/19 at 16:00 Enoxaparin Sodium (Lovenox) 40 mg DAILY SC Last administered on 02/14/19at 10:25; Admin Dose 40 MG; Start 02/13/19 at 09:00 Vancomycin HCl (Vanco Iv Per Pharmacy) VANCOMYCIN PER PHARMACY PER PROTOCOL XX ; Start 02/12/19 at 15:30 Cefepime HCl 50 ml @ 100 mls/hr Q12 IVPB Last administered on 02/14/19at 20:02; Admin Dose 100 MLS/HR; Start 02/12/19 at 21:00 Methylprednisolone Sodium Succinate (Solu-Medrol) 60 mg Q8 IV Last administered on 02/15/19at 05:25; Admin Dose 60 MG; Start 02/12/19 at 22:00 Vancomycin HCl 1.25 gm/Sodium Chloride 250 ml @ 83.333 mls/ hr Q12H IVPB Last administered on 02/15/19 05:25; Admin Dose 83.333 MLS/HR; Start 02/13/19 at 05:00 Midazolam HCl 50 ml @ 1 mls/hr TITRATE IV Last administered on 02/13/19 04:59; Admin Dose 6 MLS/HR; Start 02/13/19 at 00:30 Propofol 100 ml @ 3.027 mls/ hr Q12H IV Last administered on 02/15/19 03:22; Admin Dose 18.162 MLS/HR; Start 02/13/19 at 00:30 Fentanyl 100 ml @ 2.5 mls/hr TITRATE IV Last administered on 02/14/19 22:34; Admin Dose 10 MLS/HR; Start 02/13/19 at 12:00 Furosemide (Lasix) 40 mg DAILY IV Last administered on 02/14/19 10:32; Admin Dose 40 MG; Start 02/14/19 at 09:30 Levothyroxine Sodium (Synthroid) 88 mcg BEFORE BREAKFAST PO Last administered on 02/15/19 06:05; Admin Dose 88 MCG; Start 02/15/19 at 07:00 Miscellaneous Information 1 ea NOTE XX ; Start 02/14/19 at 10:30 Glucose (Glutose) 15 gm Q15M PRN PO DECREASED GLUCOSE; Start 02/14/19 at 10:30 Glucose (Glutose) 22.5 gm Q15M PRN PO DECREASED GLUCOSE; Start 02/14/19 at 10:30 Dextrose (D50w Syringe) 25 ml Q15M PRN IV DECREASED GLUCOSE; Start 02/14/19 at 10:30 Dextrose (D50w Syringe) 50 ml Q15M PRN IV DECREASED GLUCOSE; Start 02/14/19 at 10:30 Glucagon (Glucagen) 1 mg Q15M PRN IM DECREASED GLUCOSE; Start 02/14/19 at 10:30 Glucose (Glutose) 15 gm Q15M PRN BUCCAL DECREASED GLUCOSE; Start 02/14/19 at 10: 30 Albuterol (Ventolin Hfa) 4 puff Q4H RESP THERAPY INH Last administered on 02/15/19 08:26; Admin Dose 4 PUFF; Start 02/14/19 at 21:00 Ipratropium [place] (Atrovent Hfa) 4 puff Q4H RESP THERAPY INH Last administered on 7/6/19at 08:26; Admin Dose 4 PUFF; Start 02/14/19 at 21:00 Insulin Aspart (Novolog Insulin Pen) NOVOLOG *MILD* ALGORI... Q4 SC Last administered on 02/15/19at 05:33; Admin Dose 1 UNIT; Start 02/15/19 at 05:00 Assessment/Plan Hospital Course (Demo Recall) IMP: 1. Hypoxemic Respiratory Failure: imaging findings consistent with a multifocal pneumonia. Cannot exclude co-existing CHF, especially in view of history of Down's. BNP may be unreliable given obesity. 2. Down's Syndrome 3. EILEEN 4. HTN 5. DM RECS: 1. Continue broad-spectrum abx 2. Follow-up cultures 3. Vent--> change to VC+ VT target 400 ml; PEEP 12 patient at high risk of requiring tracheostomy. 4. Titrate FI02 to maintain PaO2> 55-60 mm Hg 5. Continue Lasix 6. Start TF/Free H20 discussed with staff at bedside 40 min cc time discussed with mother at bedside. MARY ANN MCKEON MD, [facility] Feb 15, 2019 08:33
[2019-02-15] MEDS: ENOXAPARIN 40 MG/0.4 ML SYG SC SCH (09:18)
[2019-02-15] MEDS: CEFEPIME 1GM/50 ML (PMX) 50 ML IVPB SCH ×2 (09:18→21:09)
[2019-02-15] MEDS: FUROSEMIDE 40 MG INJ IV SCH (09:18)
[2019-02-15] MEDS: FAMOTIDINE 20 MG INJ IV SCH ×2 (10:00→21:09)
--- NOTE | 2019-02-15 11:02 | PN ---
Date/Time of Note Date/Time of Note DATE: 02/15/19 TIME: 10:59 Assessment/Plan VTE Prophylaxis Risk score [place] [facility] [place] risk: 7 SCD applied (from [facility] [place] Yes Pharmacological prophylaxis: LMWH Lines/Catheters IV [facility] Type ([facility] Mid Line Central line still needed: Yes Urinary Cath still in place: Yes Reason Cath still needed: urinary retention Assessment/Plan Hospital Course 1. Severe altered mental status likely secondary to metabolic encephalopathy, likely secondary to CO2 narcosis. The patient is also on antidepressants and lo xapine at home. Surprisingly on ABG CO2 levels were not high 2. Hypoxic respiratory failure s/p intubation secondary to pneumonia/CHF 3. Lactic acidosis. Respiratory acidosis. 4. Morbid obesity. 5. Down syndrome. 6. Hypertension. 7. Diabetes. 8. History of ventral hernia repair. 9. Leukocytosis secondary to pneumonia 10. Hypothyroidism 11. KIRIT, more likely due to sepsis Assessment/Plan -ICU care -leucocytosis is decreased -constipation relief -c/w tube feed -Vent management per pulmonary. -cardiology input is appreciated -Sedation per pulmonary -on 60% of FiO2 -c. with vancomycin/cefepime -cw with nebs/steroids -cw iv lasix 20 - ECHO 50-55 %. - GI Famotidine BID -DVT prophylaxis Lovenox Result Diagram: 02/15/19 0545 02/15/19 0545 Results 24hrs Laboratory Tests Test 02/14/19 12:47 02/14/19 17:38 02/14/19 20:06 02/15/19 05:24 Bedside Glucose 141 140 134 143 Test 02/15/19 05:45 02/15/19 07:00 02/15/19 09:22 White Blood Count 14.6 #H Red Blood Count 4.79 Hemoglobin 13.2 Hematocrit 41.7 Mean Corpuscular 87.1 Volume Mean Corpuscular 27.6 L Hemoglobin Mean Corpuscular 31.7 L Hemoglobin Concent Red Cell 20.1 H Distribution Width Platelet Count 260 # Mean Platelet 11.3 #H Volume Immature 0.900 H Granulocytes % Neutrophils % 88.9 H Lymphocytes % 3.6 L Monocytes % 6.4 Eosinophils % 0.1 Basophils % 0.1 Nucleated Red 0.2 H Blood Cells % Immature 0.130 H Granulocytes # Neutrophils # 13.0 H Lymphocytes # 0.5 L Monocytes # 0.9 Eosinophils # 0.0 Basophils # 0.0 Nucleated Red 0.0 Blood Cells # Sodium Level 141 Potassium Level 4.6 Chloride Level 106 Carbon Dioxide 28 Level Anion Gap 7 Blood Urea 21 H Nitrogen Creatinine 0.79 Est Glomerular > 60 Filtrat Rate mL/min Glucose Level 146 Calcium Level 8.2 L Phosphorus Level 3.2 Magnesium Level 2.9 H Total Bilirubin 0.3 Direct Bilirubin 0.00 Indirect Bilirubin 0.3 Aspartate Amino 33 Transf (AST/SGOT) Alanine 45 Aminotransferase ( ALT/SGPT) Alkaline 50 Phosphatase Total Protein 6.3 Albumin 3.2 L Globulin 3.10 Albumin/Globulin 1.03 Ratio Blood Gas Specimen Blood arterial Source Arterial Blood 02/15/2019 8:25:36 Date Drawn AM Arterial Blood pH 7.427 (Temp corrected) Arterial Blood 50.6 H pCO2 (Temp correct) Arterial Blood pO2 92.8 (Temp corrected) Arterial Blood 32.6 H HCO3 Arterial Blood 6.9 H Base Excess Arterial Blood 96.7 Oxygen Saturation [place]win Test ACCEPTAB Arterial Blood Gas Right Radial Puncture Site Arterial 0.5 Blood Carboxyhemog lobin Arterial Blood 0.2 Methemoglobin Blood Gas A-a O2 351.9 H Differential Oxyhemoglobin 96.0 Percent Blood Gas 37.0 Temperature Blood Gas 20.0 Respiration Rate Blood Gas Actual 20 Respiration Rate Blood Gas Modality VENT - AC FiO2 70.0 Blood Gas Tidal 400.0 Volume Blood Gas Low PEEP 12.0 Setting Blood Gas Notified DT Whom Blood Gas Notified 02/15/2019 8:48:20 Time AM Bedside Glucose 139 Subjective 24 Hr Interval Summary Subjective hx not possible: pt non-verbal, pt critical status Exam/Review of Systems Exam Vitals Vital Signs Date Temp Pulse Resp B/P (MAP) Pulse Ox O2 O2 Flow FiO2 Time Delivery Rate 02/15/19 77 20 125/62 94 09:30 (83) 02/15/19 60 09:21 02/15/19 Mechanical 09:00 Ventilator 02/15/19 98.9 08:00 02/12/19 15.0 15:34 Intake and Output 02/14/19 02/14/19 02/15/19 1515:00 23:00 07:00 IntakeIntake Total 210 ml 601.470 ml 627.972 ml OutputOutput Total 670 ml 300 ml 370 ml BalanceBalance -460 ml 301.470 ml 257.972 ml Exam orally intubated Constitutional: non-verbal Head: normocephalic Neck: other (short) Respiratory: diminished breath sounds Cardiovascular: regular rate and rhythm Gastrointestinal: soft, distended Additional Comments NG tube Results Results 24hrs Laboratory Tests Test 02/14/19 12:47 02/14/19 17:38 02/14/19 20:06 02/15/19 05:24 Bedside Glucose 141 140 134 143 Test 02/15/19 05:45 02/15/19 07:00 02/15/19 09:22 White Blood Count 14.6 #H Red Blood Count 4.79 Hemoglobin 13.2 Hematocrit 41.7 Mean Corpuscular 87.1 Volume Mean Corpuscular 27.6 L Hemoglobin Mean Corpuscular 31.7 L Hemoglobin Concent Red Cell 20.1 H Distribution Width Platelet Count 260 # Mean Platelet 11.3 #H Volume Immature 0.900 H Granulocytes % Neutrophils % 88.9 H Lymphocytes % 3.6 L Monocytes % 6.4 Eosinophils % 0.1 Basophils % 0.1 Nucleated Red 0.2 H Blood Cells % Immature 0.130 H Granulocytes # Neutrophils # 13.0 H Lymphocytes # 0.5 L Monocytes # 0.9 Eosinophils # 0.0 Basophils # 0.0 Nucleated Red 0.0 Blood Cells # Sodium Level 141 Potassium Level 4.6 Chloride Level 106 Carbon Dioxide 28 Level Anion Gap 7 Blood Urea 21 H Nitrogen Creatinine 0.79 Est Glomerular > 60 Filtrat Rate mL/min Glucose Level 146 Calcium Level 8.2 L Phosphorus Level 3.2 Magnesium Level 2.9 H Total Bilirubin 0.3 Direct Bilirubin 0.00 Indirect Bilirubin 0.3 Aspartate Amino 33 Transf (AST/SGOT) Alanine 45 Aminotransferase ( ALT/SGPT) Alkaline 50 Phosphatase Total Protein 6.3 Albumin 3.2 L Globulin 3.10 Albumin/Globulin 1.03 Ratio Blood Gas Specimen Blood arterial Source Arterial Blood 02/15/2019 8:25:36 Date Drawn AM Arterial Blood pH 7.427 (Temp corrected) Arterial Blood 50.6 H pCO2 (Temp correct) Arterial Blood pO2 92.8 (Temp corrected) Arterial Blood 32.6 H HCO3 Arterial Blood 6.9 H Base Excess Arterial Blood 96.7 Oxygen Saturation Corwin Test ACCEPTAB Arterial Blood Gas Right Radial Puncture Site Arterial 0.5 Blood Carboxyhemog lobin Arterial Blood 0.2 Methemoglobin Blood Gas A-a O2 351.9 H Differential Oxyhemoglobin 96.0 Percent Blood Gas 37.0 Temperature Blood Gas 20.0 Respiration Rate Blood Gas Actual 20 Respiration Rate Blood Gas Modality VENT - AC FiO2 70.0 Blood Gas Tidal 400.0 Volume Blood Gas Low PEEP 12.0 Setting Blood Gas Notified DT Whom Blood Gas Notified 02/15/2019 8:48:20 Time AM Bedside Glucose 139 Medications Medication Current Medications IV Flush (NS 3 ml) 3 ml PER PROTOCOL IV ; Start 02/12/19 at 15:30 Ondansetron HCl (Zofran Inj) 4 mg Q6H PRN IV NAUSEA/VOMITING; Start 02/12/19 at 15:30 Acetaminophen (Tylenol Tab) 650 mg Q6H PRN PO .PAIN 1-3 OR TEMP Last admin istered on 02/14/19at 17:42; Admin Dose 650 MG; Start 02/12/19 at 15:30 Docusate Sodium (Colace) 100 mg Q12H PRN PO .CONSTIPATION; Start 02/12/19 at 15:30 Famotidine (Pepcid Iv) 20 mg Q12 IV Last administered on 02/15/19at 10:00; Admin Dose 20 MG; Start 02/12/19 at 16:00 Enoxaparin Sodium (Lovenox) 40 mg DAILY SC Last administered on 02/15/19 09:18; Admin Dose 40 MG; Start 02/13/19 at 09:00 Vancomycin HCl (Vanco Iv Per Pharmacy) VANCOMYCIN PER PHARMACY PER PROTOCOL XX ; Start 02/12/19 at 15:30 Cefepime HCl 50 ml @ 100 mls/hr Q12 IVPB Last administered on 02/15/19at 09:18; Admin Dose 100 MLS/HR; Start 02/12/19 at 21:00 Methylprednisolone Sodium Succinate (Solu-Medrol) 60 mg Q8 IV Last administered on 02/15/19 05:25; Admin Dose 60 MG; Start 02/12/19 at 22:00 Vancomycin HCl 1.25 gm/Sodium Chloride 250 ml @ 83.333 mls/ hr Q12H IVPB Last administered on 02/15/19 05:25; Admin Dose 83.333 MLS/HR; Start 02/13/19 at 05:00 Propofol 100 ml @ 3.027 mls/ hr Q12H IV Last administered on 02/15/19 09:17; Admin Dose 18.162 MLS/HR; Start 02/13/19 at 00:30 Fentanyl 100 ml @ 2.5 mls/hr TITRATE IV Last administered on 02/14/19at 22:34; Admin Dose 10 MLS/HR; Start 02/13/19 at 12:00 Furosemide (Lasix) 40 mg DAILY IV Last administered on 02/15/19 09:18; Admin Dose 40 MG; Start 02/14/19 at 09:30 Levothyroxine Sodium (Synthroid) 88 mcg BEFORE BREAKFAST PO Last administered on 02/15/19 06:05; Admin Dose 88 MCG; Start 02/15/19 at 07:00 Miscellaneous Information 1 ea NOTE XX ; Start 02/14/19 at 10:30 Glucose (Glutose) 15 gm Q15M PRN PO DECREASED GLUCOSE; Start 02/14/19 at 10:30 Glucose (Glutose) 22.5 gm Q15M PRN PO DECREASED GLUCOSE; Start 02/14/19 at 10:30 Dextrose (D50w Syringe) 25 ml Q15M PRN IV DECREASED GLUCOSE; Start 02/14/19 at 10:30 Dextrose (D50w Syringe) 50 ml Q15M PRN IV DECREASED GLUCOSE; Start 02/14/19 at 10:30 Glucagon (Glucagen) 1 mg Q15M PRN IM DECREASED GLUCOSE; Start 02/14/19 at 10:30 Glucose (Glutose) 15 gm Q15M PRN BUCCAL DECREASED GLUCOSE; Start 02/14/19 at 10:30 Albuterol (Ventolin Hfa) 4 puff Q4H RESP THERAPY INH Last administered on 02/15/19 08:26; Admin Dose 4 PUFF; Start 02/14/19 at 21:00 Ipratropium [place] (Atrovent Hfa) 4 puff Q4H RESP THERAPY INH Last administered on 02/15/19 08:26; Admin Dose 4 PUFF; Start 02/14/19 at 21:00 Insulin Aspart (Novolog Insulin Pen) NOVOLOG *MILD* ALGORI... Q4 SC Last administered on 02/15/19 05:33; Admin Dose 1 UNIT; Start 02/15/19 at 05:00 Midazolam HCl 50 ml @ 1 mls/hr TITRATE IV ; Start 02/15/19 at 10:00 CARY GIPSON Feb 15, 2019 11:01
--- NOTE | 2019-02-15 11:31 | CONS ---
Consult Date/Type/Reason Admit Date/Time Feb 12, 2019 at 12:24 Initial Consult Date Type of Consultation: Pulm/CCM Date/Time of Note DATE: 02/15/19 TIME: 11:30 Subjective NO acute events - pt comfortable - intubated - reasonable urine output - will monitor clinically now. ROS: No fever, no chills, no nausea, no vomiting, no diarrhea/constipation - per nurse - intubated Objective Vitals Vital Signs Date Temp Pulse Resp B/P (MAP) Pulse Ox O2 O2 Flow FiO2 Time Delivery Rate 02/15/19 77 20 125/62 94 09:30 (83) 02/15/19 60 09:21 02/15/19 Mechanical 09:00 Ventilator 02/15/19 98.9 08:00 02/12/19 15.0 15:34 Intake and Output 02/14/19 02/14/19 02/15/19 1515:00 23:00 07:00 IntakeIntake Total 210 ml 601.470 ml 711.302 ml OutputOutput Total 670 ml 300 ml 370 ml BalanceBalance -460 ml 301.470 ml 341.302 ml Exam General: WN/WD/NAD, AOx 0 HEENT: Unicetric/atraumatic/EOMI (does not follow commands) NECK: JVD elevated, no thyromegaly - intubated Lymph: no lymphadenopathy HEART: regular with no S3, II/ systolic murmur at apex LUNGS: Coarse sounds ABD: soft, NT, ND, +BS : Intact Neuro: non focal SKIN: chronic changes EXT: trace edema Results/Medications Result Diagram: 02/15/19 0545 02/15/19 0545 Results 24 hrs Laboratory Tests Test 02/14/19 12:47 02/14/19 17:38 02/14/19 20:06 02/15/19 05:24 Bedside Glucose 141 140 134 143 Test 02/15/19 05:45 02/15/19 07:00 02/15/19 09:22 White Blood Count 14.6 #H Red Blood Count 4.79 Hemoglobin 13.2 Hematocrit 41.7 Mean Corpuscular 87.1 Volume Mean Corpuscular 27.6 L Hemoglobin Mean Corpuscular 31.7 L Hemoglobin Concent Red Cell 20.1 H Distribution Width Platelet Count 260 # Mean Platelet 11.3 #H Volume Immature 0.900 H Granulocytes % Neutrophils % 88.9 H Lymphocytes % 3.6 L Monocytes % 6.4 Eosinophils % 0.1 Basophils % 0.1 Nucleated Red 0.2 H Blood Cells % Immature 0.130 H Granulocytes # Neutrophils # 13.0 H Lymphocytes # 0.5 L Monocytes # 0.9 Eosinophils # 0.0 Basophils # 0.0 Nucleated Red 0.0 Blood Cells # Sodium Level 141 Potassium Level 4.6 Chloride Level 106 Carbon Dioxide 28 Level Anion Gap 7 Blood Urea 21 H Nitrogen Creatinine 0.79 Est Glomerular > 60 Filtrat Rate mL/min Glucose Level 146 Calcium Level 8.2 L Phosphorus Level 3.2 Magnesium Level 2.9 H Total Bilirubin 0.3 Direct Bilirubin 0.00 Indirect Bilirubin 0.3 Aspartate Amino 33 Transf (AST/SGOT) Alanine 45 Aminotransferase ( ALT/SGPT) Alkaline 50 Phosphatase Total Protein 6.3 Albumin 3.2 L Globulin 3.10 Albumin/Globulin 1.03 Ratio Blood Gas Specimen Blood arterial Source Arterial Blood 02/15/2019 8:25:36 Date Drawn AM Arterial Blood pH 7.427 (Temp corrected) Arterial Blood 50.6 H pCO2 (Temp correct) Arterial Blood pO2 92.8 (Temp corrected) Arterial Blood 32.6 H HCO3 Arterial Blood 6.9 H Base Excess Arterial Blood 96.7 Oxygen Saturation [place] Test ACCEPTAB Arterial Blood Gas Right Radial Puncture Site Arterial 0.5 Blood Carboxyhemog lobin Arterial Blood 0.2 Methemoglobin Blood Gas A-a O2 351.9 H Differential Oxyhemoglobin 96.0 Percent Blood Gas 37.0 Temperature Blood Gas 20.0 Respiration Rate Blood Gas Actual 20 Respiration Rate Blood Gas Modality VENT - AC FiO2 70.0 Blood Gas Tidal 400.0 Volume Blood Gas Low PEEP 12.0 Setting Blood Gas Notified DT Whom Blood Gas Notified 02/15/2019 8:48:20 Time AM Bedside Glucose 139 Home Meds Reported Medications [place] Carbonate* ([place]*) 300 Mg Cap, 600 MG PO QHS, CAP 02/12/19 Levothyroxine Sodium* (Levoxyl*) 88 Mcg Tablet, 88 MCG PO BEFORE BREAKFAST, #30 TAB 02/12/19 Loxapine Succinate (Loxapine) 10 Mg Capsule, 10 MG PO QHS, CAP 02/12/19 Cyanocobalamin* (Vitamin B12*) 100 Mcg Tab, 100 MCG PO DAILY, TAB 02/12/19 Loratadine* (Loratadine*) 10 Mg Tablet, 10 MG PO DAILY, #30 TAB 02/12/19 Metformin Hcl* (Metformin Hcl*) 500 Mg Tablet, 500 MG PO WITH BREAKFAST, #30 TAB 02/12/19 Propranolol Hcl* (Propranolol Hcl*) 10 Mg Tablet, 10 MG PO BID, TAB 02/12/19 Ergocalciferol (Vitamin D2) (VITAMIN D2) 50,000 Unit Capsule, 17727 UNIT PO EVERY SUNDAY, CAP 02/12/19 Discontinued Reported Medications Cholecalciferol* (Vitamin D3*) 1,000 Unit Tablet, 1000 UNIT PO DAILY, TAB 11/09/17 Topiramate* (Topamax*) 25 Mg Cap.sprink, 50 MG PO QAM, CAP 11/09/17 Topiramate* (Topamax*) 25 Mg Cap.sprink, 100 MG PO QPM, CAP 11/09/17 Sertraline Hcl* (Sertraline Hcl*) 25 Mg Tablet, 75 MG PO DAILY, #30 TAB 11/09/17 Levothyroxine Sodium* (Levothyroxine Sodium*) 75 Mcg Tablet, 75 MCG PO BEFORE BREAKFAST, #30 TAB 11/09/17 Medications Current Medications IV Flush (NS 3 ml) 3 ml PER PROTOCOL IV ; Start 02/12/19 at 15:30 Ondansetron HCl (Zofran Inj) 4 mg Q6H PRN IV NAUSEA/VOMITING; Start 02/12/19 at 15:30 Acetaminophen (Tylenol Tab) 650 mg Q6H PRN PO .PAIN 1-3 OR TEMP Last administered on 02/14/19at 17:42; Admin Dose 650 MG; Start 02/12/19 at 15:30 Docusate Sodium (Colace) 100 mg Q12H PRN PO .CONSTIPATION; Start 02/12/19 at 15:30 Famotidine (Pepcid Iv) 20 mg Q12 IV Last administered on 02/15/19at 10:00; Admin Dose 20 MG; Start 02/12/19 at 16:00 Enoxaparin Sodium (Lovenox) 40 mg DAILY SC Last administered on 02/15/19at 09:18; Admin Dose 40 MG; Start 02/13/19 at 09:00 Vancomycin HCl (Vanco Iv Per Pharmacy) VANCOMYCIN PER PHARMACY PER PROTOCOL XX ; Start 02/12/19 at 15:30 Cefepime HCl 50 ml @ 100 mls/hr Q12 IVPB Last administered on 02/15/19 09:18; Admin Dose 100 MLS/HR; Start 02/12/19 at 21:00 Methylprednisolone Sodium Succinate (Solu-Medrol) 60 mg Q8 IV Last administered on 02/15/19 05:25; Admin Dose 60 MG; Start 02/12/19 at 22:00 Vancomycin HCl 1.25 gm/Sodium Chloride 250 ml @ 83.333 mls/ hr Q12H IVPB Last administered on 02/15/19 05:25; Admin Dose 83.333 MLS/HR; Start 02/13/19 at 05:00 Propofol 100 ml @ 3.027 mls/ hr Q12H IV Last administered on 02/15/19 09:17; Admin Dose 18.162 MLS/HR; Start 02/13/19 at 00:30 Fentanyl 100 ml @ 2.5 mls/hr TITRATE IV Last administered on 02/14/19at 22:34; Admin Dose 10 MLS/HR; Start 02/13/19 at 12:00 Furosemide (Lasix) 40 mg DAILY IV Last administered on 02/15/19 09:18; Admin Dose 40 MG; Start 02/14/19 at 09:30 Levothyroxine Sodium (Synthroid) 88 mcg BEFORE BREAKFAST PO Last administered on 02/15/19at 06:05; Admin Dose 88 MCG; Start 02/15/19 at 07:00 Miscellaneous Information 1 ea NOTE XX ; Start 02/14/19 at 10:30 Glucose (Glutose) 15 gm Q15M PRN PO DECREASED GLUCOSE; Start 02/14/19 at 10:30 Glucose (Glutose) 22.5 gm Q15M PRN PO DECREASED GLUCOSE; Start 02/14/19 at 10:30 Dextrose (D50w Syringe) 25 ml Q15M PRN IV DECREASED GLUCOSE; Start 02/14/19 at 10:30 Dextrose (D50w Syringe) 50 ml Q15M PRN IV DECREASED GLUCOSE; Start 02/14/19 at 10:30 Glucagon (Glucagen) 1 mg Q15M PRN IM DECREASED GLUCOSE; Start 02/14/19 at 10:30 Glucose (Glutose) 15 gm Q15M PRN BUCCAL DECREASED GLUCOSE; Start 02/14/19 at 10:30 Albuterol (Ventolin Hfa) 4 puff Q4H RESP THERAPY INH Last administered on 02/15/19at 08:26; Admin Dose 4 PUFF; Start 02/14/19 at 21:00 Ipratropium [place] (Atrovent Hfa) 4 puff Q4H RESP THERAPY INH Last administered on 02/15/19at 08:26; Admin Dose 4 PUFF; Start 02/14/19 at 21:00 Insulin Aspart (Novolog Insulin Pen) NOVOLOG *MILD* ALGORI... Q4 SC Last administered on 02/15/19at 05:33; Admin Dose 1 UNIT; Start 02/15/19 at 05:00 Midazolam HCl 50 ml @ 1 mls/hr TITRATE IV ; Start 02/15/19 at 10:00 Docusate Sodium (Colace Liquid Cup) 100 mg BID NGT ; Start 02/15/19 at 11:00 Bisacodyl (Dulcolax Supp) 10 mg DAILY PRN [place] CONSTIPATION; Start 02/15/19 at 11:00 Assessment/Plan Hospital Course (Demo Recall) 1. Respiratory failure, assess for congestive heart failure - now intubated, con't supportive Rx. Con't to wean as tolerated. Con't to wean per pulmonary team. 2. Lower extremity edema, assess for congestive heart failure- con't diuresis - increased urine output. On meds now. Rate controlled. 3. Tachycardia, improved, status post intubation, likely due to respiratory distress. Sinus tach - better now. Treated. 4. Abnormal electrocardiogram with right axis deviation and T-wave flattening. Assess for acute coronary syndrome. NO CP now. 5. Down syndrome. Supportive Rx as needed. 6. Hypothyroidism - on meds. 7. Diabetes mellitus- con't to keep euglycemic. Co 8. Obstructive sleep apnea- on vent. 9. CHF - diast HF - acute on chronic, con'y IV Lasix at 40 daily now. BRIAN PATTERSON MD Feb 15, 2019 11:31
[2019-02-15] MEDS: BISACODYL 10 MG SUPP PR PRN (12:15)
[2019-02-15] MEDS: DOCUSATE SODIUM 10 MG/ML (10ML CUP) NGT SCH ×2 (12:15→21:09)
[2019-02-15] MEDS: MIDAZOLAM (DRIP) 50 mg/50 mL 50 ML IV SCH ×2 (12:17→21:13)
[2019-02-15] MEDS: FENTAnyl (DRIP) 1000 mcg/100mL 100 ML IV SCH ×2 (12:18→21:14)
[2019-02-15] MEDS: METHYLPREDNISOLONE 40 MG INJ IV SCH ×2 (15:11→21:09)
[2019-02-15] MEDS: ACETAMINOPHEN 325 MG TAB PO PRN (18:46)
[2019-02-16] VITALS (44 sets, daily range): BP systolic 96–130; BP diastolic 46–73; PULSE 66–95; RESP 20–23
[2019-02-16] MEDS: INSULIN ASPART [NOVOLOG] 3 ML PEN SC SCH ×6 (00:43→21:00)
[2019-02-16] MEDS: IPRATROPIUM (HFA) 12.9 GM INHALER INH SCH ×6 (01:43→21:05)
[2019-02-16] MEDS: ALBUTEROL HFA 8 GM INHALER INH SCH ×6 (01:44→21:05)
[2019-02-16] MEDS: ACETAMINOPHEN 325 MG TAB PO PRN ×2 (02:34→11:11)
[2019-02-16] MEDS: VANCOMYCIN HCL 1.25 GM in SOD CHLORIDE 0.9% 250 ML IVPB SCH ×2 (04:57→17:20)
[2019-02-16] MEDS: METHYLPREDNISOLONE 40 MG INJ IV SCH ×3 (06:20→21:33)
[2019-02-16] MEDS: LEVOTHYROXINE 88 MCG TAB PO SCH (06:20)
[2019-02-16] MEDS: FAMOTIDINE 20 MG INJ IV SCH ×2 (08:41→21:32)
[2019-02-16] MEDS: ENOXAPARIN 40 MG/0.4 ML SYG SC SCH (08:41)
[2019-02-16] MEDS: FUROSEMIDE 40 MG INJ IV SCH (08:42)
[2019-02-16] MEDS: DOCUSATE SODIUM 10 MG/ML (10ML CUP) NGT SCH ×2 (08:42→21:32)
--- NOTE | 2019-02-16 08:43 | CONS ---
Consult Date/Type/Reason Admit Date/Time Feb 12, 2019 at 12:24 Initial Consult Date Type of Consult Pulmonary Date/Time of Note DATE: 02/16/19 TIME: 08:43 Subjective Continues mechanical ventilation remains orally intubated FiO2 decreased and PEEP decreased from 12-5. Objective Vital Signs Date Temp Pulse Resp B/P (MAP) Pulse Ox O2 O2 Flow FiO2 Time Delivery Rate 02/16/19 78 20 94 08:15 02/16/19 100.2 08:00 02/16/19 104/58 [employer] 08:00 (73) l Ventilato r 02/16/19 50 05:35 02/12/19 15.0 15:34 Intake and Output 02/15/19 02/15/19 02/16/19 1515:00 23:00 07:00 IntakeIntake Total 894.33 ml 978 ml 784 ml OutputOutput Total 930 ml 1180 ml 840 ml BalanceBalance -35.67 ml -202 ml -56 ml Exam HEENT: Neck supple; no JVD; no LAD; + ET tube CVS: RRR, S1 and S2 CHEST: Clear distant breath sounds ABD: Obese, soft, NT, + BS EXT: No c/c: + edema NEURO: sedated on the vent. Moves all extremities. Vent Setting Ventilator Support Mode: AC, VC plus Fraction of Inspired Oxygen pe: 50 Positive End Expiratory Pressu: 12.0 Results/Medications Result Diagram: 02/16/19 0400 02/16/19 0400 Results 24 hrs Laboratory Tests Test 02/15/19 09:22 02/15/19 12:16 02/15/19 17:47 02/15/19 21:09 Bedside Glucose 139 140 158 153 Test 02/16/19 00:40 02/16/19 04:00 02/16/19 04:58 02/16/19 08:36 Bedside Glucose 151 143 151 White Blood Count 10.5 # Red Blood Count 4.82 Hemoglobin 13.0 Hematocrit 42.5 Mean Corpuscular Volume 88.2 Mean Corpuscular 27.0 L Hemoglobin Mean Corpuscular 30.6 L Hemoglobin Concent Red Cell Distribution 19.6 H Width Platelet Count 265 Mean Platelet Volume 9.8 Immature Granulocytes % 1.100 H Neutrophils % 80.6 H Lymphocytes % 5.8 L Monocytes % 12.2 H Eosinophils % 0.0 Basophils % 0.3 Nucleated Red Blood 0.0 Cells % Immature Granulocytes # 0.110 H Neutrophils # 8.4 H Lymphocytes # 0.6 L Monocytes # 1.3 H Eosinophils # 0.0 Basophils # 0.0 Nucleated Red Blood 0.0 Cells # Sodium Level 141 Potassium Level 4.0 Chloride Level 104 Carbon Dioxide Level 32 H Anion Gap 5 Blood Urea Nitrogen 25 H Creatinine 0.82 Est Glomerular Filtrat > 60 Rate mL/min Glucose Level 157 Calcium Level 8.1 L Medications Current Medications IV Flush (NS 3 ml) 3 ml PER PROTOCOL IV ; Start 02/12/19 at 15:30 Ondansetron HCl (Zofran Inj) 4 mg Q6H PRN IV NAUSEA/VOMITING; Start 02/12/19 at 15:30 Acetaminophen (Tylenol Tab) 650 mg Q6H PRN PO .PAIN 1-3 OR TEMP Last administered on 02/16/19 02:34; Admin Dose 650 MG; Start 02/12/19 at 15:30 Docusate Sodium (Colace) 100 mg Q12H PRN PO .CONSTIPATION; Start 02/12/19 at 15:30 Famotidine (Pepcid Iv) 20 mg Q12 IV Last administered on 02/15/19 21:09; Admin Dose 20 MG; Start 02/12/19 at 16:00 Enoxaparin Sodium (Lovenox) 40 mg DAILY SC Last administered on 02/15/19 09:18; Admin Dose 40 MG; Start 02/13/19 at 09:00 Vancomycin HCl (Vanco Iv Per Pharmacy) VANCOMYCIN PER PHARMACY PER PROTOCOL XX ; Start 02/12/19 at 15:30 Cefepime HCl 50 ml @ 100 mls/hr Q12 IVPB Last administered on 02/15/19 21:09; Admin Dose 100 MLS/HR; Start 02/12/19 at 21:00 Vancomycin HCl 1.25 gm/Sodium Chloride 250 ml @ 83.333 mls/ hr Q12H IVPB Last administered on 02/16/19 04:57; Admin Dose 83.333 MLS/HR; Start 02/13/19 at 05:00 Propofol 100 ml @ 3.027 mls/ hr Q12H IV Last administered on 02/15/19 09:17; Admin Dose 18.162 MLS/HR; Start 02/13/19 at 00:30 Fentanyl 100 ml @ 2.5 mls/hr TITRATE IV Last administered on 02/15/19at 21:14; Admin Dose 2.5 MLS/HR; Start 02/13/19 at 12:00 Furosemide (Lasix) 40 mg DAILY IV Last administered on 02/15/19at 09:18; Admin Dose 40 MG; Start 02/14/19 at 09:30 Levothyroxine Sodium (Synthroid) 88 mcg BEFORE BREAKFAST PO Last administered on 02/16/19at 06:20; Admin Dose 88 MCG; Start 02/15/19 at 07:00 Miscellaneous Information 1 ea NOTE XX ; Start 02/14/19 at 10:30 Glucose (Glutose) 15 gm Q15M PRN PO DECREASED GLUCOSE; Start 02/14/19 at 10:30 Glucose (Glutose) 22.5 gm Q15M PRN PO DECREASED GLUCOSE; Start 02/14/19 at 10:30 Dextrose (D50w Syringe) 25 ml Q15M PRN IV DECREASED GLUCOSE; Start 02/14/19 at 10:30 Dextrose (D50w Syringe) 50 ml Q15M PRN IV DECREASED GLUCOSE; Start 02/14/19 at 10:30 Glucagon (Glucagen) 1 mg Q15M PRN IM DECREASED GLUCOSE; Start 02/14/19 at 10:30 Glucose (Glutose) 15 gm Q15M PRN BUCCAL DECREASED GLUCOSE; Start 02/14/19 at 10:30 Albuterol (Ventolin Hfa) 4 puff Q4H RESP THERAPY INH Last administered on 02/16/19at 05:40; Admin Dose 4 PUFF; Start 02/14/19 at 21:00 Ipratropium [place] (Atrovent Hfa) 4 puff Q4H RESP THERAPY INH Last administered on 02/16/19 05:40; Admin Dose 4 PUFF; Start 02/14/19 at 21:00 Insulin Aspart (Novolog Insulin Pen) NOVOLOG *MILD* ALGORI... Q4 SC Last administered on 02/16/19 05:02; Admin Dose 1 UNIT; Start 02/15/19 at 05:00 Midazolam HCl 50 ml @ 1 mls/hr TITRATE IV Last administered on 02/15/19at 21:13; Admin Dose 4 MLS/HR; Start 02/15/19 at 10:00 Docusate Sodium (Colace Liquid Cup) 100 mg BID NGT Last administered on 02/15/19at 21:09; Admin Dose 100 MG; Start 02/15/19 at 11:00 Bisacodyl (Dulcolax Supp) 10 mg DAILY PRN [place] CONSTIPATION Last administered on 02/15/19at 12:15; Admin Dose 10 MG; Start 02/15/19 at 11:00 Methylprednisolone Sodium Succinate (Solu-Medrol) 40 mg Q8 IV Last administered on 02/16/19at 06:20; Admin Dose 40 MG; Start 02/15/19 at 14:00 Assessment/Plan Hospital Course (Demo Recall) IMP: 1. Hypoxemic Respiratory Failure: imaging findings consistent with a multifocal pneumonia. Cannot exclude co-existing CHF, especially in view of history of Down's. BNP may be unreliable given obesity. 2. Down's Syndrome 3. EILEEN 4. HTN 5. DM RECS: 1. Continue broad-spectrum abx 2. Follow-up cultures 3. Vent--> decrease PEEP as tolerated. Anticipate CPAP weaning trial tomorrow. 4. Titrate FI02 to maintain PaO2> 55-60 mm Hg 5. Continue Lasix 6. TF/Free H20 discussed with staff at bedside 40 min cc time discussed with mother at bedside. MARY ANN MCKEON MD, [facility] Feb 16, 2019 08:43
[2019-02-16] MEDS: CEFEPIME 1GM/50 ML (PMX) 50 ML IVPB SCH (08:47)
[2019-02-16] MEDS: MIDAZOLAM (DRIP) 50 mg/50 mL 50 ML IV SCH ×2 (08:52→19:50)
[2019-02-16] MEDS: FENTAnyl (DRIP) 1000 mcg/100mL 100 ML IV SCH ×2 (08:54→19:52)
--- NOTE | 2019-02-16 10:32 | CONS ---
Consult Date/Type/Reason Admit Date/Time Feb 12, 2019 at 12:24 Initial Consult Date Type of Consultation: Pulm/CCM Date/Time of Note DATE: 02/16/19 TIME: 10:29 Subjective No acute events - pt comfortable - no CP now - in better fluid satus - sedated, con't resp Rx - improved HR. ROS: No fever, no chills, no nausea, no vomiting, no diarrhea/constipation No recent weight changes No chest pain, no PND, no orthopnea - mild SOB No dizziness, blurred vision No thirst, no heat or cold intolerance Objective Vitals Vital Signs Date Temp Pulse Resp B/P (MAP) Pulse Ox O2 O2 Flow FiO2 Time Delivery Rate 02/16/19 78 20 94 08:15 02/16/19 100.2 08:00 02/16/19 104/58 [employer] 08:00 (73) l Ventilato r 02/16/19 50 05:35 02/12/19 15.0 15:34 Intake and Output 02/15/19 02/15/19 02/16/19 1515:00 23:00 07:00 IntakeIntake Total 894.33 ml 978 ml 784 ml OutputOutput Total 930 ml 1180 ml 840 ml BalanceBalance -35.67 ml -202 ml -56 ml Exam General: WN/WD/NAD, AOx 0 sedated HEENT: Unicetric/atraumatic/EOMI (does not follow commands) NECK: JVD elevated, no thyromegaly - intubated Lymph: no lymphadenopathy HEART: regular with no S3, II/ systolic murmur at apex, PMI L LUNGS: Coarse sounds ABD: soft, NT, ND, +BS : Intact Neuro: non focal SKIN: chronic changes EXT: trace edema Results/Medications Result Diagram: 02/16/19 0400 02/16/19 0400 Results 24 hrs Laboratory Tests Test 02/15/19 12:16 02/15/19 17:47 02/15/19 21:09 02/16/19 00:40 Bedside Glucose 140 158 153 151 Test 02/16/19 04:00 02/16/19 04:58 02/16/19 08:36 White Blood Count 10.5 # Red Blood Count 4.82 Hemoglobin 13.0 Hematocrit 42.5 Mean Corpuscular Volume 88.2 Mean Corpuscular 27.0 L Hemoglobin Mean Corpuscular 30.6 L Hemoglobin Concent Red Cell Distribution 19.6 H Width Platelet Count 265 Mean Platelet Volume 9.8 Immature Granulocytes % 1.100 H Neutrophils % 80.6 H Lymphocytes % 5.8 L Monocytes % 12.2 H Eosinophils % 0.0 Basophils % 0.3 Nucleated Red Blood 0.0 Cells % Immature Granulocytes # 0.110 H Neutrophils # 8.4 H Lymphocytes # 0.6 L Monocytes # 1.3 H Eosinophils # 0.0 Basophils # 0.0 Nucleated Red Blood 0.0 Cells # Sodium Level 141 Potassium Level 4.0 Chloride Level 104 Carbon Dioxide Level 32 H Anion Gap 5 Blood Urea Nitrogen 25 H Creatinine 0.82 Est Glomerular Filtrat > 60 Rate mL/min Glucose Level 157 Calcium Level 8.1 L Bedside Glucose 143 151 Home Meds Reported Medications [employer] Carbonate* ([employer]*) 300 Mg Cap, 600 MG PO QHS, CAP 02/12/19 Levothyroxine Sodium* (Levoxyl*) 88 Mcg Tablet, 88 MCG PO BEFORE BREAKFAST, #30 TAB 02/12/19 Loxapine Succinate (Loxapine) 10 Mg Capsule, 10 MG PO QHS, CAP 02/12/19 Cyanocobalamin* (Vitamin B12*) 100 Mcg Tab, 100 MCG PO DAILY, TAB 02/12/19 Loratadine* (Loratadine*) 10 Mg Tablet, 10 MG PO DAILY, #30 TAB 02/12/19 Metformin Hcl* (Metformin Hcl*) 500 Mg Tablet, 500 MG PO WITH BREAKFAST, #30 TAB 02/12/19 Propranolol Hcl* (Propranolol Hcl*) 10 Mg Tablet, 10 MG PO BID, TAB 02/12/19 Ergocalciferol (Vitamin D2) (VITAMIN D2) 50,000 Unit Capsule, 39508 UNIT PO EVERY SUNDAY, CAP 02/12/19 Discontinued Reported Medications Cholecalciferol* (Vitamin D3*) 1,000 Unit Tablet, 1000 UNIT PO DAILY, TAB 11/09/17 Topiramate* (Topamax*) 25 Mg Cap.sprink, 50 MG PO QAM, CAP 11/09/17 Topiramate* (Topamax*) 25 Mg Cap.sprink, 100 MG PO QPM, CAP 11/09/17 Sertraline Hcl* (Sertraline Hcl*) 25 Mg Tablet, 75 MG PO DAILY, #30 TAB 3/30/18 Levothyroxine Sodium* (Levothyroxine Sodium*) 75 Mcg Tablet, 75 MCG PO BEFORE BREAKFAST, #30 TAB 11/09/17 Medications Current Medications IV Flush (NS 3 ml) 3 ml PER PROTOCOL IV ; Start 02/12/19 at 15:30 Ondansetron HCl (Zofran Inj) 4 mg Q6H PRN IV NAUSEA/VOMITING; Start 02/12/19 at 15:30 Acetaminophen (Tylenol Tab) 650 mg Q6H PRN PO .PAIN 1-3 OR TEMP Last administered on 02/16/19 02:34; Admin Dose 650 MG; Start 02/12/19 at 15:30 Docusate Sodium (Colace) 100 mg Q12H PRN PO .CONSTIPATION; Start 02/12/19 at 15:30 Famotidine (Pepcid Iv) 20 mg Q12 IV Last administered on 02/16/19 08:41; Admin Dose 20 MG; Start 02/12/19 at 16:00 Enoxaparin Sodium (Lovenox) 40 mg DAILY SC Last administered on 02/16/19 08:41; Admin Dose 40 MG; Start 02/13/19 at 09:00 Vancomycin HCl (Vanco Iv Per Pharmacy) VANCOMYCIN PER PHARMACY PER PROTOCOL XX ; Start 02/12/19 at 15:30 Cefepime HCl 50 ml @ 100 mls/hr Q12 IVPB Last administered on 02/16/19 08:47; Admin Dose 100 MLS/HR; Start 02/12/19 at 21:00 Vancomycin HCl 1.25 gm/Sodium Chloride 250 ml @ 83.333 mls/ hr Q12H IVPB Last administered on 02/16/19 04:57; Admin Dose 83.333 MLS/HR; Start 02/13/19 at 05:00 Propofol 100 ml @ 3.027 mls/ hr Q12H IV Last administered on 02/15/19 09:17; Admin Dose 18.162 MLS/HR; Start 02/13/19 at 00:30 Fentanyl 100 ml @ 2.5 mls/hr TITRATE IV Last administered on 02/16/19 08:54; Admin Dose 2.5 MLS/HR; Start 02/13/19 at 12:00 Furosemide (Lasix) 40 mg DAILY IV Last administered on 02/16/19 08:42; Admin Dose 40 MG; Start 02/14/19 at 09:30 Levothyroxine Sodium (Synthroid) 88 mcg BEFORE BREAKFAST PO Last administered on 02/16/19 06:20; Admin Dose 88 MCG; Start 02/15/19 at 07:00 Miscellaneous Information 1 ea NOTE XX ; Start 02/14/19 at 10:30 Glucose (Glutose) 15 gm Q15M PRN PO DECREASED GLUCOSE; Start 02/14/19 at 10:30 Glucose (Glutose) 22.5 gm Q15M PRN PO DECREASED GLUCOSE; Start 02/14/19 at 10:30 Dextrose (D50w Syringe) 25 ml Q15M PRN IV DECREASED GLUCOSE; Start 02/14/19 at 10:30 Dextrose (D50w Syringe) 50 ml Q15M PRN IV DECREASED GLUCOSE; Start 02/14/19 at 10:30 Glucagon (Glucagen) 1 mg Q15M PRN IM DECREASED GLUCOSE; Start 02/14/19 at 10:30 Glucose (Glutose) 15 gm Q15M PRN BUCCAL DECREASED GLUCOSE; Start 02/14/19 at 10:30 Albuterol (Ventolin Hfa) 4 puff Q4H RESP THERAPY INH Last administered on 02/16/19 09:43; Admin Dose 4 PUFF; Start 02/14/19 at 21:00 Ipratropium [place] (Atrovent Hfa) 4 puff Q4H RESP THERAPY INH Last administered on 02/16/19 09:43; Admin Dose 4 PUFF; Start 02/14/19 at 21:00 Insulin Aspart (Novolog Insulin Pen) NOVOLOG *MILD* ALGORI... Q4 SC Last administered on 02/16/19 08:44; Admin Dose 1 UNIT; Start 02/15/19 at 05:00 Midazolam HCl 50 ml @ 1 mls/hr TITRATE IV Last administered on 02/16/19 08:52; Admin Dose 4 MLS/HR; Start 02/15/19 at 10:00 Docusate Sodium (Colace Liquid Cup) 100 mg BID NGT Last administered on 02/16/19 08:42; Admin Dose 100 MG; Start 02/15/19 at 11:00 Bisacodyl (Dulcolax Supp) 10 mg DAILY PRN [place] CONSTIPATION Last administered on 02/15/19at 12:15; Admin Dose 10 MG; Start 02/15/19 at 11:00 Methylprednisolone Sodium Succinate (Solu-Medrol) 40 mg Q8 IV Last administered on 02/16/19at 06:20; Admin Dose 40 MG; Start 02/15/19 at 14:00 Assessment/Plan Hospital Course (Demo Recall) 1. Respiratory failure, assess for congestive heart failure - now intubated, con't supportive Rx. Con't to wean as tolerated. Con't to wean per pulmonary team. Better fluid staus now. 2. Lower extremity edema, assess for congestive heart failure- con't diuresis - increased urine output. On meds now. Rate controlled. Improved. 3. Tachycardia, improved, status post intubation, likely due to respiratory distress. Sinus tach - better now. Treated. NOw in sinus at 90s - con't resp care., 4. Abnormal electrocardiogram with right axis deviation and T-wave flattening. Assess for acute coronary syndrome. NO CP now. 5. Down syndrome. Supportive Rx as needed. 6. Hypothyroidism - on meds. Treated. 7. Diabetes mellitus- con't to keep euglycemic. Co 8. Obstructive sleep apnea- on vent. 9. CHF - diast HF - acute on chronic, con'y IV Lasix at 40 daily now- responded well to diuresis. BRIAN PATTERSON MD Feb 16, 2019 10:32
[2019-02-16] MEDS: PROPOFOL 100 ML IV SCH (12:30)
--- NOTE | 2019-02-16 13:30 | PN ---
Date/Time of Note Date/Time of Note DATE: 02/16/19 TIME: 13:27 Assessment/Plan VTE Prophylaxis Risk score (from Ns)>0 risk: 2 [place]CD applied [place]from [facility] [place] Yes Pharmacological prophylaxis: LMWH Lines/Catheters IV Catheter Type (from [facility]): Mid Line Central line still needed: Yes Urinary Cath still in place: Yes Reason Cath still needed: urinary retention Assessment/Plan Hospital Course 1. Severe altered mental status likely secondary to metabolic encephalopathy, likely secondary to CO2 narcosis. The patient is also on antidepressants and lo xapine at home. Surprisingly on ABG CO2 levels were not high 2. Hypoxic respiratory failure s/p intubation secondary to pneumonia/CHF 3. Lactic acidosis. Respiratory acidosis. 4. Morbid obesity. 5. Down syndrome. 6. Hypertension. 7. Diabetes. 8. History of ventral hernia repair. 9. Leukocytosis secondary to pneumonia 10. Hypothyroidism 11. KIRIT, more likely due to sepsis Assessment/Plan -ICU care no stool for 4 days -leucocytosis is decreased -bl.cul negative, was pancultured yesterday , still low grade fever -constipation relief -c/w tube feed -Vent management per pulmonary. -cardiology input is appreciated -Sedation per pulmonary -on 60% of FiO2 -c. with vancomycin/cefepime -cw with nebs/steroids -cw iv lasix 20 - ECHO 50-55 %. - GI Famotidine BID -DVT prophylaxis Lovenox Result Diagram: 02/16/19 0400 02/16/19 0400 Results 24hrs Laboratory Tests Test 02/15/19 17:47 02/15/19 21:09 02/16/19 00:40 02/16/19 04:00 Bedside Glucose 158 153 151 White Blood Count 10.5 # Red Blood Count 4.82 Hemoglobin 13.0 Hematocrit 42.5 Mean Corpuscular Volume 88.2 Mean Corpuscular 27.0 L Hemoglobin Mean Corpuscular 30.6 L Hemoglobin Concent Red Cell Distribution 19.6 H Width Platelet Count 265 Mean Platelet Volume 9.8 Immature Granulocytes % 1.100 H Neutrophils % 80.6 H Lymphocytes % 5.8 L Monocytes % 12.2 H Eosinophils % 0.0 Basophils % 0.3 Nucleated Red Blood 0.0 Cells % Immature Granulocytes # 0.110 H Neutrophils # 8.4 H Lymphocytes # 0.6 L Monocytes # 1.3 H Eosinophils # 0.0 Basophils # 0.0 Nucleated Red Blood 0.0 Cells # Sodium Level 141 Potassium Level 4.0 Chloride Level 104 Carbon Dioxide Level 32 H Anion Gap 5 Blood Urea Nitrogen 25 H Creatinine 0.82 Est Glomerular Filtrat > 60 Rate mL/min Glucose Level 157 Calcium Level 8.1 L Test 02/16/19 04:58 02/16/19 08:36 Bedside Glucose 143 151 Subjective 24 Hr Interval Summary Subjective hx not possible: pt critical status Exam/Review of Systems Exam Vitals Vital Signs Date Temp Pulse Resp B/P (MAP) Pulse Ox O2 O2 Flow FiO2 Time Delivery Rate 02/16/19 100.7 12:00 02/16/19 76 12:00 02/16/19 20 122/48 94 12:00 (72) 02/16/19 50 11:00 02/16/19 Mechanica 11:00 l Ventilato r 02/12/19 15.0 15:34 Intake and Output 02/15/19 02/15/19 02/16/19 1515:00 23:00 07:00 IntakeIntake Total 894.33 ml 978 ml 834 ml OutputOutput Total 930 ml 1180 ml 1040 ml BalanceBalance -35.67 ml -202 ml -206 ml Exam orally intubated, sedated with propofol Constitutional: non-verbal Head: normocephalic Neck: supple Respiratory: diminished breath sounds Cardiovascular: regular rate and rhythm Gastrointestinal: soft, distended Results Results 24hrs Laboratory Tests Test 02/15/19 17:47 02/15/19 21:09 02/16/19 00:40 02/16/19 04:00 Bedside Glucose 158 153 151 White Blood Count 10.5 # Red Blood Count 4.82 Hemoglobin 13.0 Hematocrit 42.5 Mean Corpuscular Volume 88.2 Mean Corpuscular 27.0 L Hemoglobin Mean Corpuscular 30.6 L Hemoglobin Concent Red Cell Distribution 19.6 H Width Platelet Count 265 Mean Platelet Volume 9.8 Immature Granulocytes % 1.100 H Neutrophils % 80.6 H Lymphocytes % 5.8 L Monocytes % 12.2 H Eosinophils % 0.0 Basophils % 0.3 Nucleated Red Blood 0.0 Cells % Immature Granulocytes # 0.110 H Neutrophils # 8.4 H Lymphocytes # 0.6 L Monocytes # 1.3 H Eosinophils # 0.0 Basophils # 0.0 Nucleated Red Blood 0.0 Cells # Sodium Level 141 Potassium Level 4.0 Chloride Level 104 Carbon Dioxide Level 32 H Anion Gap 5 Blood Urea Nitrogen 25 H Creatinine 0.82 Est Glomerular Filtrat > 60 Rate mL/min Glucose Level 157 Calcium Level 8.1 L Test 02/16/19 04:58 02/16/19 08:36 Bedside Glucose 143 151 Medications Medication Current Medications IV Flush (NS 3 ml) 3 ml PER PROTOCOL IV ; Start 02/12/19 at 15:30 Ondansetron HCl (Zofran Inj) 4 mg Q6H PRN IV NAUSEA/VOMITING; Start 02/12/19 at 15:30 Acetaminophen (Tylenol Tab) 650 mg Q6H PRN PO .PAIN 1-3 OR TEMP Last administered on 02/16/19 11:11; Admin Dose 650 MG; Start 02/12/19 at 15:30 Docusate Sodium (Colace) 100 mg Q12H PRN PO .CONSTIPATION; Start 02/12/19 at 15:30 Famotidine (Pepcid Iv) 20 mg Q12 IV Last administered on 02/16/19 08:41; Admin Dose 20 MG; Start 02/12/19 at 16:00 Enoxaparin Sodium (Lovenox) 40 mg DAILY SC Last administered on 02/16/19 08:41; Admin Dose 40 MG; Start 02/13/19 at 09:00 Vancomycin HCl (Vanco Iv Per Pharmacy) VANCOMYCIN PER PHARMACY PER PROTOCOL XX ; Start 02/12/19 at 15:30 Cefepime HCl 50 ml @ 100 mls/hr Q12 IVPB Last administered on 02/16/19 08:47; Admin Dose 100 MLS/HR; Start 02/12/19 at 21:00 Vancomycin HCl 1.25 gm/Sodium Chloride 250 ml @ 83.333 mls/ hr Q12H IVPB Last administered on 02/16/19 04:57; Admin Dose 83.333 MLS/HR; Start 02/13/19 at 05:00 Propofol 100 ml @ 3.027 mls/ hr Q12H IV Last administered on 02/15/19 09:17; Admin Dose 18.162 MLS/HR; Start 02/13/19 at 00:30 Fentanyl 100 ml @ 2.5 mls/hr TITRATE IV Last administered on 02/16/19 08:54; Admin Dose 2.5 MLS/HR; Start 02/13/19 at 12:00 Furosemide (Lasix) 40 mg DAILY IV Last administered on 02/16/19 08:42; Admin Dose 40 MG; Start 02/14/19 at 09:30 Levothyroxine Sodium (Synthroid) 88 mcg BEFORE BREAKFAST PO Last administered on 02/16/19 06:20; Admin Dose 88 MCG; Start 02/15/19 at 07:00 Miscellaneous Information 1 ea NOTE XX ; Start 02/14/19 at 10:30 Glucose (Glutose) 15 gm Q15M PRN PO DECREASED GLUCOSE; Start 02/14/19 at 10:30 Glucose (Glutose) 22.5 gm Q15M PRN PO DECREASED GLUCOSE; Start 02/14/19 at 10:30 Dextrose (D50w Syringe) 25 ml Q15M PRN IV DECREASED GLUCOSE; Start 02/14/19 at 10:30 Dextrose (D50w Syringe) 50 ml Q15M PRN IV DECREASED GLUCOSE; Start 02/14/19 at 10:30 Glucagon (Glucagen) 1 mg Q15M PRN IM DECREASED GLUCOSE; Start 02/14/19 at 10:30 Glucose (Glutose) 15 gm Q15M PRN BUCCAL DECREASED GLUCOSE; Start 02/14/19 at 10:30 Albuterol (Ventolin Hfa) 4 puff Q4H RESP THERAPY INH Last administered on 02/16/19 13:21; Admin Dose 4 PUFF; Start 02/14/19 at 21:00 Ipratropium [place] (Atrovent Hfa) 4 puff Q4H RESP THERAPY INH Last admin istered on 02/16/19 13:21; Admin Dose 4 PUFF; Start 02/14/19 at 21:00 Insulin Aspart (Novolog Insulin Pen) NOVOLOG *MILD* ALGORI... Q4 SC Last administered on 02/16/19 08:44; Admin Dose 1 UNIT; Start 02/15/19 at 05:00 Midazolam HCl 50 ml @ 1 mls/hr TITRATE IV Last administered on 02/16/19 08:52; Admin Dose 4 MLS/HR; Start 02/15/19 at 10:00 Docusate Sodium (Colace Liquid Cup) 100 mg BID NGT Last administered on 7/7/19at 08:42; Admin Dose 100 MG; Start 02/15/19 at 11:00 Bisacodyl (Dulcolax Supp) 10 mg DAILY PRN [place] CONSTIPATION Last administered on 02/15/19 12:15; Admin Dose 10 MG; Start 02/15/19 at 11:00 Methylprednisolone Sodium Succinate (Solu-Medrol) 40 mg Q8 IV Last administered on 02/16/19 06:20; Admin Dose 40 MG; Start 02/15/19 at 14:00 CARY GIPSON Feb 16, 2019 13:30
--- NOTE | 2019-02-16 14:26 | CONS ---
Assessment/Plan Assessment/Plan Hospital Course (Demo Recall) ID PROGRESS NOTE CURRENT ABX: DAY # 4=> Vanco IV + Cefepime s/p Ceftriaxone 702/16/19 0400 02/16/19 0400 24H INTERVAL SUMMARY * Intubated -- noncommunicative, persistent high fevers on Cefepime 1GM == BMI 46 needs higher dose * Admit with sepsis, shock, multifocal PNA DIAGNOSTIC IMAGING * 02/15/19 CXR:IMPRESSION: Placement of left arm PICC line with tip in the superior vena cava.Endotracheal tube and nasogastric tube in place unchanged. Low volumes with hilar vascular crowding and mild bibasilar atelectasis per. * 02/12/19 CXR: There is bilateral perihilar consolidation as well as left lung base consolidation. MICRO * 02/15/19 RESPIRATORY CULTURE Preliminary Culture too young to evaluate * 02/15/19 UA (-) * 02/12/19 BCx (-) PHYSICAL EXAMINATION: GENERAL: VSS, NAD HEENT: AT, NC, NECK: Supple, CHEST: Rise symmetrical HEART: Pulse RRR ABDOMEN: Benign EXTREMITIES: Warm, dry - SKIN: No rash, no diaphoresis ID ASSESSMENT 28 yo DOWN' SYDNROME F admit with: 1. Septic w/persistent fevers, WBC resolving 2. Hypoxemic Respiratory Failure: imaging findings consistent with a multifocal pneumonia. 3. CHF 4. Obesity w/EILEEN/OHS 5. HTN 6. Diabetes (-)MRSA Nares ABX ALLERGIES: KNDA INVASIVES: PIV CURRENT ABX: DAY # 4=> Vanco IV + Cefepime 2G today + Levaquin IV s/p Ceftriaxone 02/12 ID RECOMMENDATIONS/PLAN: 1. Continue Vanco IV 2. Persistent high fevers on Cefepime 1GM == INCREASE TO 2GM today * == BMI 46 needs higher dose of cephalosporins due to massive body surface area -- not enough ABX dose onboard 3. ADD Levaquin for Atypical coverage 4. Micro pending -- Will follow . Consultation Date/Type/Reason Admit Date/Time Feb 12, 2019 at 12:24 Initial Consult Date Date/Time of Note DATE: 02/16/19 TIME: 14:11 Exam/Review of Systems Exam Vitals Vital Signs Date Temp Pulse Resp B/P (MAP) Pulse Ox O2 O2 Flow FiO2 Time Delivery Rate 02/16/19 100.7 12:00 02/16/19 76 12:00 02/16/19 20 122/48 94 12:00 (72) 02/16/19 50 11:00 02/16/19 Mechanica 11:00 l Ventilato r 02/12/19 15.0 15:34 Intake and Output 02/15/19 02/15/19 02/16/19 1515:00 23:00 07:00 IntakeIntake Total 894.33 ml 978 ml 834 ml OutputOutput Total 930 ml 1180 ml 1040 ml BalanceBalance -35.67 ml -202 ml -206 ml Results Result Diagram: 02/16/19 0400 02/16/19 0400 Results 24hrs Laboratory Tests Test 02/15/19 17:47 02/15/19 21:09 02/16/19 00:40 02/16/19 04:00 Bedside Glucose 158 153 151 White Blood Count 10.5 # Red Blood Count 4.82 Hemoglobin 13.0 Hematocrit 42.5 Mean Corpuscular Volume 88.2 Mean Corpuscular 27.0 L Hemoglobin Mean Corpuscular 30.6 L Hemoglobin Concent Red Cell Distribution 19.6 H Width Platelet Count 265 Mean Platelet Volume 9.8 Immature Granulocytes % 1.100 H Neutrophils % 80.6 H Lymphocytes % 5.8 L Monocytes % 12.2 H Eosinophils % 0.0 Basophils % 0.3 Nucleated Red Blood 0.0 Cells % Immature Granulocytes # 0.110 H Neutrophils # 8.4 H Lymphocytes # 0.6 L Monocytes # 1.3 H Eosinophils # 0.0 Basophils # 0.0 Nucleated Red Blood 0.0 Cells # Sodium Level 141 Potassium Level 4.0 Chloride Level 104 Carbon Dioxide Level 32 H Anion Gap 5 Blood Urea Nitrogen 25 H Creatinine 0.82 Est Glomerular Filtrat > 60 Rate mL/min Glucose Level 157 Calcium Level 8.1 L Test 02/16/19 04:58 02/16/19 08:36 02/16/19 14:01 Bedside Glucose 143 151 140 Medications Medication Current Medications IV Flush (NS 3 ml) 3 ml PER PROTOCOL IV ; Start 02/12/19 at 15:30 Ondansetron HCl (Zofran Inj) 4 mg Q6H PRN IV NAUSEA/VOMITING; Start 02/12/19 at 15:30 Acetaminophen (Tylenol Tab) 650 mg Q6H PRN PO .PAIN 1-3 OR TEMP Last administered on 02/16/19 11:11; Admin Dose 650 MG; Start 02/12/19 at 15:30 Docusate Sodium (Colace) 100 mg Q12H PRN PO .CONSTIPATION; Start 02/12/19 at 15:30 Famotidine (Pepcid Iv) 20 mg Q12 IV Last administered on 02/16/19 08:41; Admin Dose 20 MG; Start 02/12/19 at 16:00 Enoxaparin Sodium (Lovenox) 40 mg DAILY SC Last administered on 02/16/19 08:41; Admin Dose 40 MG; Start 02/13/19 at 09:00 Vancomycin HCl (Vanco Iv Per Pharmacy) VANCOMYCIN PER PHARMACY PER PROTOCOL XX ; Start 02/12/19 at 15:30 Cefepime HCl 50 ml @ 100 mls/hr Q12 IVPB Last administered on 02/16/19 08:47; Admin Dose 100 MLS/HR; Start 02/12/19 at 21:00 Vancomycin HCl 1.25 gm/Sodium Chloride 250 ml @ 83.333 mls/ hr Q12H IVPB Last administered on 02/16/19 04:57; Admin Dose 83.333 MLS/HR; Start 02/13/19 at 05:00 Propofol 100 ml @ 3.027 mls/ hr Q12H IV Last administered on 02/15/19 09:17; Admin Dose 18.162 MLS/HR; Start 02/13/19 at 00:30 Fentanyl 100 ml @ 2.5 mls/hr TITRATE IV Last administered on 02/16/19 08:54; Admin Dose 2.5 MLS/HR; Start 02/13/19 at 12:00 Furosemide (Lasix) 40 mg DAILY IV Last administered on 02/16/19 08:42; Admin Dose 40 MG; Start 02/14/19 at 09:30 Levothyroxine Sodium (Synthroid) 88 mcg BEFORE BREAKFAST PO Last administered on 02/16/19 06:20; Admin Dose 88 MCG; Start 02/15/19 at 07:00 Miscellaneous Information 1 ea NOTE XX ; Start 02/14/19 at 10:30 Glucose (Glutose) 15 gm Q15M PRN PO DECREASED GLUCOSE; Start 02/14/19 at 10:30 Glucose (Glutose) 22.5 gm Q15M PRN PO DECREASED GLUCOSE; Start 02/14/19 at 10:30 Dextrose (D50w Syringe) 25 ml Q15M PRN IV DECREASED GLUCOSE; Start 02/14/19 at 10:30 Dextrose (D50w Syringe) 50 ml Q15M PRN IV DECREASED GLUCOSE; Start 02/14/19 at 10:30 Glucagon (Glucagen) 1 mg Q15M PRN IM DECREASED GLUCOSE; Start 02/14/19 at 10:30 Glucose (Glutose) 15 gm Q15M PRN BUCCAL DECREASED GLUCOSE; Start 02/14/19 at 10: 30 Albuterol (Ventolin Hfa) 4 puff Q4H RESP THERAPY INH Last administered on 02/16/19 13:21; Admin Dose 4 PUFF; Start 02/14/19 at 21:00 Ipratropium [place] (Atrovent Hfa) 4 puff Q4H RESP THERAPY INH Last administered on 02/16/19 13:21; Admin Dose 4 PUFF; Start 02/14/19 at 21:00 Insulin Aspart (Novolog Insulin Pen) NOVOLOG *MILD* ALGORI... Q4 SC Last administered on 02/16/19 08:44; Admin Dose 1 UNIT; Start 02/15/19 at 05:00 Midazolam HCl 50 ml @ 1 mls/hr TITRATE IV Last administered on 02/16/19 08:52; Admin Dose 4 MLS/HR; Start 02/15/19 at 10:00 Docusate Sodium (Colace Liquid Cup) 100 mg BID NGT Last administered on 02/16/19 08:42; Admin Dose 100 MG; Start 02/15/19 at 11:00 Bisacodyl (Dulcolax Supp) 10 mg DAILY PRN [place] CONSTIPATION Last administered on 02/15/19 12:15; Admin Dose 10 MG; Start 02/15/19 at 11:00 Methylprednisolone Sodium Succinate (Solu-Medrol) 40 mg Q8 IV Last administered on 02/16/19 06:20; Admin Dose 40 MG; Start 02/15/19 at 14:00 DESHAWN CARSON NP Feb 16, 2019 14:21
[2019-02-16] MEDS ORDERED: NA PHOSPHATE/BIPHOS 133 ML ENEMA PR ONE (15:00)
[2019-02-16] MEDS: LEVOFLOXACIN 750MG/D5W (PMX) 150 ML IVPB SCH (15:49)
[2019-02-16] MEDS: CEFEPIME 2GM/50 ML (PMX) 50 ML IVPB SCH (21:32)
[2019-02-17] VITALS (51 sets, daily range): BP systolic 100–131; BP diastolic 48–90; PULSE 73–111; RESP 20–26
[2019-02-17] MEDS: IPRATROPIUM (HFA) 12.9 GM INHALER INH SCH ×6 (00:56→21:04)
[2019-02-17] MEDS: ALBUTEROL HFA 8 GM INHALER INH SCH ×6 (00:56→21:04)
[2019-02-17] MEDS: INSULIN ASPART [NOVOLOG] 3 ML PEN SC SCH ×6 (01:00→21:38)
[2019-02-17] MEDS: METHYLPREDNISOLONE 40 MG INJ IV SCH ×3 (05:16→21:44)
[2019-02-17] MEDS: VANCOMYCIN HCL 1.25 GM in SOD CHLORIDE 0.9% 250 ML IVPB SCH ×2 (05:16→17:29)
[2019-02-17] MEDS: LEVOTHYROXINE 88 MCG TAB PO SCH (07:01)
[2019-02-17] MEDS: FAMOTIDINE 20 MG INJ IV SCH ×2 (08:17→21:44)
[2019-02-17] MEDS: CEFEPIME 2GM/50 ML (PMX) 50 ML IVPB SCH ×2 (08:17→21:44)
[2019-02-17] MEDS: DOCUSATE SODIUM 10 MG/ML (10ML CUP) NGT SCH ×2 (08:17→21:44)
[2019-02-17] MEDS: FUROSEMIDE 40 MG INJ IV SCH (08:18)
[2019-02-17] MEDS: ENOXAPARIN 40 MG/0.4 ML SYG SC SCH (08:23)
[2019-02-17] MEDS: PROPOFOL 100 ML IV SCH ×2 (08:24→12:01)
--- NOTE | 2019-02-17 10:54 | CONS ---
Assessment/Plan Assessment/Plan Hospital Course (Demo Recall) ID PROGRESS NOTE CURRENT ABX: DAY # 5=> Vanco IV + Cefepime 2GM (increased dose 02/16 pm) + Levaquin #2 s/p Ceftriaxone 02/1202/17/19 0430 02/17/19 0430 HPI/HOSPITAL COURSE * 28 yo F w/Down's Syndrome and super morbid obesity (BMI >46.5) -> Admit with sepsis, shock, multifocal PNA * Intubated/ mechanical Vent /PICC line placed - Now on IV STEROIDS 4H INTERVAL SUMMARY * ID CONSULTED YESTERDAY FOR FEVERS > 101.+ persisting on ABX => Cefepime 1GM Q12 IV was dosed to low for BMI 46.5 => Yesterday Cefepime dose increased to 2gm iv Q12 with addition of Levaquin for Atypical PNA coverage. Today TMax down to 100.2. * ETT Cx sent yesterday and is pending * WBC rising today -- IV STEROIDS ONBOARD MICRO * 02/15/19 RESPIRATORY CULTURE Preliminary Culture too young to evaluate * 02/15/19 BCx (-) * 02/15/19 UA/Cx (-) * 02/12/UA (-) * 02/12/19 BCx (-) DIAGNOSTIC IMAGING * 02/17/19 CXR: 1. Right greater than left interstitial opacities may reflect interstitial edema or pneumonia. Findings are mildly increased when compared to the prior examination.2. Left basilar atelectasis versus pneumonia, also increased.3. Small bilateral pleural effusions.4. Tubes and lines, as de scribed above. * 02/15/19 CXR:IMPRESSION: Placement of left arm PICC line with tip in the superior vena cava.Endotracheal tube and nasogastric tube in place unchanged. Low volumes with hilar vascular crowding and mild bibasilar atelectasis per. * 02/12/19 CXR: There is bilateral perihilar consolidation as well as left lung base consolidation. PHYSICAL EXAMINATION: GENERAL: VSS, NAD HEENT: AT, NC, NECK: Supple, CHEST: Rise symmetrical HEART: Pulse RRR ABDOMEN: Benign EXTREMITIES: Warm, dry - SKIN: No rash, no diaphoresis ID ASSESSMENT 28 yo DOWN' SYDNROME F admit with: 1. Septic w/persistent fevers, WBC resolved initially w/ABX - Multifocal PNA * Leukocytosis - WBC rising 02/17 (after normalizing) => Suspect partial IV steroids demargination 2. Hypoxemic Respiratory Failure: imaging findings consistent with a multifocal pneumonia. 3. CHF 4. Obesity w/EILEEN/OHS 5. HTN 6. Diabetes (-)MRSA Nares ABX ALLERGIES: KNDA INVASIVES: PIV CURRENT ABX: DAY # 5=> Vanco IV + Cefepime 2GM (increased dose 02/16) + Levaquin #2 s/p Ceftriaxone 02/12 ID RECOMMENDATIONS/PLAN: 1. Continue Vanco IV 2. s/p Persistent high fevers on Cefepime 1GM == INCREASE TO 2GM (pm) - so far fevers down 02/17 * NOTE: BMI 46 needs higher dose of cephalosporins due to massive body surface area -- not enough ABX dose onboard initially 3. ADDED Levaquin for Atypical coverage 02/16/19 4. Respiratory Cx - Pending . Consultation Date/Type/Reason Admit Date/Time Feb 12, 2019 at 12:24 Initial Consult Date Date/Time of Note DATE: 02/17/19 TIME: 10:42 Exam/Review of Systems Exam Vitals Vital Signs Date Temp Pulse Resp B/P (MAP) Pulse Ox O2 O2 Flow FiO2 Time Delivery Rate 02/17/19 92 20 105/56 93 10:30 (72) 02/17/19 Mechan[place] 10:00 l Ventilato r 02/17/19 50 08:00 02/17/19 100.4 08:00 Intake and Output 02/16/19 02/16/19 02/17/19 1515:00 23:00 07:00 IntakeIntake Total 755.0 ml 1250.0 ml 1505.5 ml OutputOutput Total 2950 ml 560 ml 600 ml BalanceBalance -2195.0 ml 690.0 ml 905.5 ml Results Result Diagram: 02/17/19 0430 02/17/19 0430 Results 24hrs Laboratory Tests Test 02/16/19 14:01 02/16/19 14:23 02/16/19 17:19 02/16/19 21:30 Bedside Glucose 140 137 132 Urine Color YELLOW Urine Clarity SLIGHTLY CLOUDY A Urine pH 7.0 Urine Specific 1.026 [place] Urine Ketones NEGATIVE Urine Nitrite NEGATIVE Urine Bilirubin NEGATIVE Urine Urobilinogen NEGATIVE Urine Leukocyte NEGATIVE Esterase Urine Microscopic 3 RBC Urine Microscopic 1 WBC Urine Hemoglobin 2+ H Urine Glucose NEGATIVE Urine Total 1+ H Protein Test 02/17/19 02:59 02/17/19 04:30 02/17/19 08:20 Bedside Glucose 137 124 White Blood Count 12.3 H Red Blood Count 5.04 Hemoglobin 13.6 Hematocrit 44.2 Mean Corpuscular 87.7 Volume Mean Corpuscular 27.0 L Hemoglobin Mean Corpuscular 30.8 L Hemoglobin Concent Red Cell 19.3 H Distribution Width Platelet Count 243 Mean Platelet 9.5 Volume Immature 1.100 H Granulocytes % Neutrophils % 87.3 H Lymphocytes % 2.9 L Monocytes % 8.5 Eosinophils % 0.0 Basophils % 0.2 Nucleated Red 0.0 Blood Cells % Immature 0.130 H Granulocytes # Neutrophils # 10.7 H Lymphocytes # 0.4 L Monocytes # 1.0 H Eosinophils # 0.0 Basophils # 0.0 Nucleated Red 0.0 Blood Cells # Sodium Level 143 Potassium Level 4.0 Chloride Level 104 Carbon Dioxide 33 H Level Anion Gap 6 Blood Urea 25 H Nitrogen Creatinine 0.66 Est Glomerular > 60 Filtrat Rate mL/min Glucose Level 143 Calcium Level 8.4 Phosphorus Level 3.2 Magnesium Level 2.5 Medications Medication Current Medications IV Flush (NS 3 ml) 3 ml PER PROTOCOL IV ; Start 02/12/19 at 15:30 Ondansetron HCl (Zofran Inj) 4 mg Q6H PRN IV NAUSEA/VOMITING; Start 02/12/19 at 15:30 Acetaminophen (Tylenol Tab) 650 mg Q6H PRN PO .PAIN 1-3 OR TEMP Last administered on 02/16/19at 11:11; Admin Dose 650 MG; Start 02/12/19 at 15:30 Docusate Sodium (Colace) 100 mg Q12H PRN PO .CONSTIPATION; Start 02/12/19 at 15:30 Famotidine (Pepcid Iv) 20 mg Q12 IV Last administered on 02/17/19at 08:17; Admin Dose 20 MG; Start 02/12/19 at 16:00 Enoxaparin Sodium (Lovenox) 40 mg DAILY SC Last administered on 02/17/19at 08:23; Admin Dose 40 MG; Start 02/13/19 at 09:00 Vancomycin HCl (Vanco Iv Per Pharmacy) VANCOMYCIN PER PHARMACY PER PROTOCOL XX ; Start 02/12/19 at 15:30 Vancomycin HCl 1.25 gm/Sodium Chloride 250 ml @ 83.333 mls/ hr Q12H IVPB Last administered on 02/17/19 05:16; Admin Dose 83.333 MLS/HR; Start 02/13/19 at 05:00 Propofol 100 ml @ 3.027 mls/ hr Q12H IV Last administered on 02/15/19at 09:17; Admin Dose 18.162 MLS/HR; Start 02/13/19 at 00:30 Fentanyl 100 ml @ 2.5 mls/hr TITRATE IV Last administered on 02/16/19 19:52; Admin Dose 7.5 MLS/HR; Start 02/13/19 at 12:00 Furosemide (Lasix) 40 mg DAILY IV Last administered on 02/17/19at 08:18; Admin Dose 40 MG; Start 02/14/19 at 09:30 Levothyroxine Sodium (Synthroid) 88 mcg BEFORE BREAKFAST PO Last administered on 02/17/19 07:01; Admin Dose 88 MCG; Start 02/15/19 at 07:00 Miscellaneous Information 1 ea NOTE XX ; Start 02/14/19 at 10:30 Glucose (Glutose) 15 gm Q15M PRN PO DECREASED GLUCOSE; Start 02/14/19 at 10:30 Glucose (Glutose) 22.5 gm Q15M PRN PO DECREASED GLUCOSE; Start 02/14/19 at 10:30 Dextrose (D50w Syringe) 25 ml Q15M PRN IV DECREASED GLUCOSE; Start 02/14/19 at 10:30 Dextrose (D50w Syringe) 50 ml Q15M PRN IV DECREASED GLUCOSE; Start 02/14/19 at 10:30 Glucagon (Glucagen) 1 mg Q15M PRN IM DECREASED GLUCOSE; Start 02/14/19 at 10:30 Glucose (Glutose) 15 gm Q15M PRN BUCCAL DECREASED GLUCOSE; Start 02/14/19 at 10:30 Albuterol (Ventolin Hfa) 4 puff Q4H RESP THERAPY INH Last administered on 02/17/19at 08:50; Admin Dose 4 PUFF; Start 02/14/19 at 21:00 Ipratropium [place] (Atrovent Hfa) 4 puff Q4H RESP THERAPY INH Last administered on 02/17/19 08:50; Admin Dose 4 PUFF; Start 02/14/19 at 21:00 Insulin Aspart (Novolog Insulin Pen) NOVOLOG *MILD* ALGORI... Q4 SC Last administered on 02/16/19 08:44; Admin Dose 1 UNIT; Start 02/15/19 at 05:00 Midazolam HCl 50 ml @ 1 mls/hr TITRATE IV Last administered on 02/16/19 19:50; Admin Dose 6 MLS/HR; Start 02/15/19 at 10:00 Docusate Sodium (Colace Liquid Cup) 100 mg BID NGT Last administered on 02/17/19 08:17; Admin Dose 100 MG; Start 02/15/19 at 11:00 Bisacodyl (Dulcolax Supp) 10 mg DAILY PRN [place] CONSTIPATION Last administered on 02/15/19 12:15; Admin Dose 10 MG; Start 02/15/19 at 11:00 Methylprednisolone Sodium Succinate (Solu-Medrol) 40 mg Q8 IV Last administered on 02/17/19 05:16; Admin Dose 40 MG; Start 02/15/19 at 14:00 Cefepime HCl 50 ml @ 100 mls/hr Q12 IVPB Last administered on 02/17/19 08:17; Admin Dose 100 MLS/HR; Start 02/16/19 at 21:00 Levofloxacin/ Dextrose 150 ml @ 100 mls/hr Q24H IVPB Last administered on 02/16/19 15:49; Admin Dose 100 MLS/HR; Start 02/16/19 at 15:30 DESHAWN CARSON NP Feb 17, 2019 10:54
--- NOTE | 2019-02-17 11:55 | CONS ---
Assessment/Plan Assessment/Plan Hospital Course (Demo Recall) IMPRESSION: 1. Respiratory failure, assess for congestive heart failure. 2. Lower extremity edema, assess for congestive heart failure.-preserved EF 3. Tachycardia, improved, status post intubation, likely due to respiratory distress. 4. Abnormal electrocardiogram with right axis deviation and T-wave flattening. -neg trop x 3 5. Down syndrome. 6. Hypothyroidism. 7. Diabetes mellitus. 8. Obstructive sleep apnea. Recc: -ICU -Continue lasix diuresis -Contineu abx's and f/u cx data -will get chest CT today -Continue steroids and bronchodilatoirs Consultation Date/Type/Reason Admit Date/Time Feb 12, 2019 at 12:24 Initial Consult Date 02/12/19 Type of Consult Cardiology Reason for Consultation CHF Requesting Provider: LORNA LYONS MD Date/Time of Note DATE: 02/17/19 TIME: 11:50 Exam/Review of Systems Vital Signs Vitals Vital Signs Date Temp Pulse Resp B/P (MAP) Pulse Ox O2 O2 Flow FiO2 Time Delivery Rate 02/17/19 92 20 105/56 93 10:30 (72) 02/17/19 [place] 10:00 l Ventilato r 02/17/19 50 08:00 02/17/19 100.4 08:00 Intake and Output 02/16/19 02/16/19 02/17/19 1414:59 22:59 06:59 IntakeIntake Total 742.5 ml 1181.5 ml 1573 ml OutputOutput Total 3110 ml 530 ml 570 ml BalanceBalance -2367.5 ml 651.5 ml 1003 ml Exam Exam Review of Systems: CONSTITUTIONAL: No fevers, chills. PULMONARY: intubated, sedated CARDIOVASCULAR: No obvious chest pain/palpitations GASTROINTESTINAL: No nausea/vomiting. GENITOURINARY: No hematuria/dysuria. MUSCULOSKELETAL: No obvious myagias/arthalgias. PSYCHIATRIC: The patient denies depression. NEUROLOGIC: sedated Constitutional: other (sedated) Head: normocephalic ENMT: mucosa pink and moist Neck: supple, jvd (9 cm water) Respiratory: diminished breath sounds (at bases/B) Cardiovascular: regular rate and rhythm Gastrointestinal: soft, non-tender Musculoskeletal: muscle tone (normal) Extremities: edema (none) Neurological: other (No focal deficits) Labs Result Diagram: 02/17/19 0430 02/17/19 0430 Results 24hrs Laboratory Tests Test 02/16/19 14:01 02/16/19 14:23 02/16/19 17:19 02/16/19 21:30 Bedside Glucose 140 137 132 Urine Color YELLOW Urine Clarity SLIGHTLY CLOUDY A Urine pH 7.0 Urine Specific 1.026 [place] Urine Ketones NEGATIVE Urine Nitrite NEGATIVE Urine Bilirubin NEGATIVE Urine Urobilinogen NEGATIVE Urine Leukocyte NEGATIVE Esterase Urine Microscopic 3 RBC Urine Microscopic 1 WBC Urine Hemoglobin 2+ H Urine Glucose NEGATIVE Urine Total 1+ H Protein Test 02/17/19 02:59 02/17/19 04:30 02/17/19 08:20 Bedside Glucose 137 124 White Blood Count 12.3 H Red Blood Count 5.04 Hemoglobin 13.6 Hematocrit 44.2 Mean Corpuscular 87.7 Volume Mean Corpuscular 27.0 L Hemoglobin Mean Corpuscular 30.8 L Hemoglobin Concent Red Cell 19.3 H Distribution Width Platelet Count 243 Mean Platelet 9.5 Volume Immature 1.100 H Granulocytes % Neutrophils % 87.3 H Lymphocytes % 2.9 L Monocytes % 8.5 Eosinophils % 0.0 Basophils % 0.2 Nucleated Red 0.0 Blood Cells % Immature 0.130 H Granulocytes # Neutrophils # 10.7 H Lymphocytes # 0.4 L Monocytes # 1.0 H Eosinophils # 0.0 Basophils # 0.0 Nucleated Red 0.0 Blood Cells # Sodium Level 143 Potassium Level 4.0 Chloride Level 104 Carbon Dioxide 33 H Level Anion Gap 6 Blood Urea 25 H Nitrogen Creatinine 0.66 Est Glomerular > 60 Filtrat Rate mL/min Glucose Level 143 Calcium Level 8.4 Phosphorus Level 3.2 Magnesium Level 2.5 Medications Medications Current Medications IV Flush (NS 3 ml) 3 ml PER PROTOCOL IV ; Start 02/12/19 at 15:30 Ondansetron HCl (Zofran Inj) 4 mg Q6H PRN IV NAUSEA/VOMITING; Start 02/12/19 at 15:30 Acetaminophen (Tylenol Tab) 650 mg Q6H PRN PO .PAIN 1-3 OR TEMP Last administered on 02/16/19at 11:11; Admin Dose 650 MG; Start 02/12/19 at 15:30 Docusate Sodium (Colace) 100 mg Q12H PRN PO .CONSTIPATION; Start 02/12/19 at 15:30 Famotidine (Pepcid Iv) 20 mg Q12 IV Last administered on 02/17/19 08:17; Admin Dose 20 MG; Start 02/12/19 at 16:00 Enoxaparin Sodium (Lovenox) 40 mg DAILY SC Last administered on 02/17/19 08:23; Admin Dose 40 MG; Start 02/13/19 at 09:00 Vancomycin HCl (Vanco Iv Per Pharmacy) VANCOMYCIN PER PHARMACY PER PROTOCOL XX ; Start 02/12/19 at 15:30 Vancomycin HCl 1.25 gm/Sodium Chloride 250 ml @ 83.333 mls/ hr Q12H IVPB Last administered on 02/17/19 05:16; Admin Dose 83.333 MLS/HR; Start 02/13/19 at 05:00 Propofol 100 ml @ 3.027 mls/ hr Q12H IV Last administered on 02/15/19 09:17; Admin Dose 18.162 MLS/HR; Start 02/13/19 at 00:30 Fentanyl 100 ml @ 2.5 mls/hr TITRATE IV Last administered on 02/16/19at 19:52; Admin Dose 7.5 MLS/HR; Start 02/13/19 at 12:00 Furosemide (Lasix) 40 mg DAILY IV Last administered on 02/17/19 08:18; Admin Dose 40 MG; Start 02/14/19 at 09:30 Levothyroxine Sodium (Synthroid) 88 mcg BEFORE BREAKFAST PO Last administered on 02/17/19 07:01; Admin Dose 88 MCG; Start 02/15/19 at 07:00 Miscellaneous Information 1 ea NOTE XX ; Start 02/14/19 at 10:30 Glucose (Glutose) 15 gm Q15M PRN PO DECREASED GLUCOSE; Start 02/14/19 at 10:30 Glucose (Glutose) 22.5 gm Q15M PRN PO DECREASED GLUCOSE; Start 02/14/19 at 10:30 Dextrose (D50w Syringe) 25 ml Q15M PRN IV DECREASED GLUCOSE; Start 02/14/19 at 10:30 Dextrose (D50w Syringe) 50 ml Q15M PRN IV DECREASED GLUCOSE; Start 02/14/19 at 10:30 Glucagon (Glucagen) 1 mg Q15M PRN IM DECREASED GLUCOSE; Start 02/14/19 at 10:30 Glucose (Glutose) 15 gm Q15M PRN BUCCAL DECREASED GLUCOSE; Start 02/14/19 at 10:30 Albuterol (Ventolin Hfa) 4 puff Q4H RESP THERAPY INH Last administered on 02/17/19 08:50; Admin Dose 4 PUFF; Start 02/14/19 at 21:00 Ipratropium [place] (Atrovent Hfa) 4 puff Q4H RESP THERAPY INH Last administered on 02/17/19 08:50; Admin Dose 4 PUFF; Start 02/14/19 at 21:00 Insulin Aspart (Novolog Insulin Pen) NOVOLOG *MILD* ALGORI... Q4 SC Last administered on 02/16/19 08:44; Admin Dose 1 UNIT; Start 02/15/19 at 05:00 Midazolam HCl 50 ml @ 1 mls/hr TITRATE IV Last administered on 02/16/19 19:50; Admin Dose 6 MLS/HR; Start 02/15/19 at 10:00 Docusate Sodium (Colace Liquid Cup) 100 mg BID NGT Last administered on 02/17/19 08:17; Admin Dose 100 MG; Start 02/15/19 at 11:00 Bisacodyl (Dulcolax Supp) 10 mg DAILY PRN [place] CONSTIPATION Last administered on 02/15/19 12:15; Admin Dose 10 MG; Start 02/15/19 at 11:00 Methylprednisolone Sodium Succinate (Solu-Medrol) 40 mg Q8 IV Last administered on 02/17/19 05:16; Admin Dose 40 MG; Start 02/15/19 at 14:00 Cefepime HCl 50 ml @ 100 mls/hr Q12 IVPB Last administered on 02/17/19 08:17; Admin Dose 100 MLS/HR; Start 02/16/19 at 21:00 Levofloxacin/ Dextrose 150 ml @ 100 mls/hr Q24H IVPB Last administered on 02/16/19 15:49; Admin Dose 100 MLS/HR; Start 02/16/19 at 15:30 SHARIF TORRES Feb 17, 2019 11:55
--- NOTE | 2019-02-17 11:57 | CONS ---
Consult Date/Type/Reason Admit Date/Time Feb 12, 2019 at 12:24 Initial Consult Date Type of Consult Pulmonary Requesting Provider: LORNA LYONS MD Date/Time of Note DATE: 02/17/19 TIME: 11:56 Subjective Patient continues mechanical ventilation sedation and FiO2 being decreased. Chest x-ray however demonstrates increased right lung effusion versus infiltra te. Objective Vital Signs Date Temp Pulse Resp B/P (MAP) Pulse Ox O2 O2 Flow FiO2 Time Delivery Rate 02/17/19 92 20 105/56 93 10:30 (72) 02/17/19 [place] 10:00 l Ventilato r 02/17/19 50 08:00 02/17/19 100.4 08:00 Intake and Output 02/16/19 02/16/19 02/17/19 1515:00 23:00 07:00 IntakeIntake Total 755.0 ml 1250.0 ml 1505.5 ml OutputOutput Total 2950 ml 560 ml 600 ml BalanceBalance -2195.0 ml 690.0 ml 905.5 ml Exam HEENT: Neck supple; no JVD; no LAD; + ET tube CVS: RRR, S1 and S2 CHEST: Clear distant breath sounds ABD: Obese, soft, NT, + BS EXT: No c/c: + edema NEURO: sedated on the vent. Moves all extremities. Vent Setting Ventilator Support Mode: AC Fraction of Inspired Oxygen pe: 50 Positive End Expiratory Pressu: 5.0 Results/Medications Result Diagram: 02/17/19 0430 02/17/19 0430 Results 24 hrs Laboratory Tests Test 02/16/19 14:01 02/16/19 14:23 02/16/19 17:19 02/16/19 21:30 Bedside Glucose 140 137 132 Urine Color YELLOW Urine Clarity SLIGHTLY CLOUDY A Urine pH 7.0 Urine Specific 1.026 [place] Urine Ketones NEGATIVE Urine Nitrite NEGATIVE Urine Bilirubin NEGATIVE Urine Urobilinogen NEGATIVE Urine Leukocyte NEGATIVE Esterase Urine Microscopic 3 RBC Urine Microscopic 1 WBC Urine Hemoglobin 2+ H Urine Glucose NEGATIVE Urine Total 1+ H Protein Test 02/17/19 02:59 02/17/19 04:30 02/17/19 08:20 Bedside Glucose 137 124 White Blood Count 12.3 H Red Blood Count 5.04 Hemoglobin 13.6 Hematocrit 44.2 Mean Corpuscular 87.7 Volume Mean Corpuscular 27.0 L Hemoglobin Mean Corpuscular 30.8 L Hemoglobin Concent Red Cell 19.3 H Distribution Width Platelet Count 243 Mean Platelet 9.5 Volume Immature 1.100 H Granulocytes % Neutrophils % 87.3 H Lymphocytes % 2.9 L Monocytes % 8.5 Eosinophils % 0.0 Basophils % 0.2 Nucleated Red 0.0 Blood Cells % Immature 0.130 H Granulocytes # Neutrophils # 10.7 H Lymphocytes # 0.4 L Monocytes # 1.0 H Eosinophils # 0.0 Basophils # 0.0 Nucleated Red 0.0 Blood Cells # Sodium Level 143 Potassium Level 4.0 Chloride Level 104 Carbon Dioxide 33 H Level Anion Gap 6 Blood Urea 25 H Nitrogen Creatinine 0.66 Est Glomerular > 60 Filtrat Rate mL/min Glucose Level 143 Calcium Level 8.4 Phosphorus Level 3.2 Magnesium Level 2.5 Medications Current Medications IV Flush (NS 3 ml) 3 ml PER PROTOCOL IV ; Start 02/12/19 at 15:30 Ondansetron HCl (Zofran Inj) 4 mg Q6H PRN IV NAUSEA/VOMITING; Start 02/12/19 at 15:30 Acetaminophen (Tylenol Tab) 650 mg Q6H PRN PO .PAIN 1-3 OR TEMP Last administered on 02/16/19at 11:11; Admin Dose 650 MG; Start 02/12/19 at 15:30 Docusate Sodium (Colace) 100 mg Q12H PRN PO .CONSTIPATION; Start 02/12/19 at 15:30 Famotidine (Pepcid Iv) 20 mg Q12 IV Last administered on 02/17/19at 08:17; Admin Dose 20 MG; Start 02/12/19 at 16:00 Enoxaparin Sodium (Lovenox) 40 mg DAILY SC Last administered on 02/17/19at 08:23; Admin Dose 40 MG; Start 02/13/19 at 09:00 Vancomycin HCl (Vanco Iv Per Pharmacy) VANCOMYCIN PER PHARMACY PER PROTOCOL XX ; Start 02/12/19 at 15:30 Vancomycin HCl 1.25 gm/Sodium Chloride 250 ml @ 83.333 mls/ hr Q12H IVPB Last administered on 02/17/19at 05:16; Admin Dose 83.333 MLS/HR; Start 02/13/19 at 05:00 Propofol 100 ml @ 3.027 mls/ hr Q12H IV Last administered on 02/15/19 09:17; Admin Dose 18.162 MLS/HR; Start 02/13/19 at 00:30 Fentanyl 100 ml @ 2.5 mls/hr TITRATE IV Last administered on 02/16/19 19:52; Admin Dose 7.5 MLS/HR; Start 02/13/19 at 12:00 Furosemide (Lasix) 40 mg DAILY IV Last administered on 02/17/19 08:18; Admin Dose 40 MG; Start 02/14/19 at 09:30 Levothyroxine Sodium (Synthroid) 88 mcg BEFORE BREAKFAST PO Last administered on 02/17/19 07:01; Admin Dose 88 MCG; Start 02/15/19 at 07:00 Miscellaneous Information 1 ea NOTE XX ; Start 02/14/19 at 10:30 Glucose (Glutose) 15 gm Q15M PRN PO DECREASED GLUCOSE; Start 02/14/19 at 10:30 Glucose (Glutose) 22.5 gm Q15M PRN PO DECREASED GLUCOSE; Start 02/14/19 at 10:30 Dextrose (D50w Syringe) 25 ml Q15M PRN IV DECREASED GLUCOSE; Start 02/14/19 at 10:30 Dextrose (D50w Syringe) 50 ml Q15M PRN IV DECREASED GLUCOSE; Start 02/14/19 at 10:30 Glucagon (Glucagen) 1 mg Q15M PRN IM DECREASED GLUCOSE; Start 02/14/19 at 10:30 Glucose (Glutose) 15 gm Q15M PRN BUCCAL DECREASED GLUCOSE; Start 02/14/19 at 10:30 Albuterol (Ventolin Hfa) 4 puff Q4H RESP THERAPY INH Last administered on 02/17/19 08:50; Admin Dose 4 PUFF; Start 02/14/19 at 21:00 Ipratropium [place] (Atrovent Hfa) 4 puff Q4H RESP THERAPY INH Last admi nistered on 02/17/19 08:50; Admin Dose 4 PUFF; Start 02/14/19 at 21:00 Insulin Aspart (Novolog Insulin Pen) NOVOLOG *MILD* ALGORI... Q4 SC Last administered on 02/16/19 08:44; Admin Dose 1 UNIT; Start 02/15/19 at 05:00 Midazolam HCl 50 ml @ 1 mls/hr TITRATE IV Last administered on 02/16/19 19:50; Admin Dose 6 MLS/HR; Start 02/15/19 at 10:00 Docusate Sodium (Colace Liquid Cup) 100 mg BID NGT Last administered on 02/17/19 08:17; Admin Dose 100 MG; Start 02/15/19 at 11:00 Bisacodyl (Dulcolax Supp) 10 mg DAILY PRN [place] CONSTIPATION Last administered on 02/15/19 12:15; Admin Dose 10 MG; Start 02/15/19 at 11:00 Methylprednisolone Sodium Succinate (Solu-Medrol) 40 mg Q8 IV Last administered on 02/17/19 05:16; Admin Dose 40 MG; Start 02/15/19 at 14:00 Cefepime HCl 50 ml @ 100 mls/hr Q12 IVPB Last administered on 02/17/19 08:17; Admin Dose 100 MLS/HR; Start 02/16/19 at 21:00 Levofloxacin/ Dextrose 150 ml @ 100 mls/hr Q24H IVPB Last administered on 02/16/19 15:49; Admin Dose 100 MLS/HR; Start 02/16/19 at 15:30 Assessment/Plan Hospital Course (Demo Recall) IMP: 1. Hypoxemic Respiratory Failure: imaging findings consistent with a multifocal pneumonia. Cannot exclude co-existing CHF, especially in view of history of Down's. BNP may be unreliable given obesity. 2. Down's Syndrome 3. EILEEN 4. HTN 5. DM RECS: 1. Continue broad-spectrum abx 2. Follow-up cultures 3. Vent--> decrease PEEP as tolerated. We will attempt weaning trial after imaging of chest. CT chest to evaluate lung parenchyma. May have significant pleural effusion that may require thoracentesis. 4. Titrate FI02 to maintain PaO2> 55-60 mm Hg 5. Continue Lasix 6. TF/Free H20 discussed with staff at bedside 40 min cc time discussed with mother at bedside. MARY ANN MCKEON MD, [facility] Feb 17, 2019 11:57
--- NOTE | 2019-02-17 12:51 | PN ---
Date/Time of Note Date/Time of Note DATE: 02/17/19 TIME: 12:51 Assessment/Plan VTE Prophylaxis Risk score (from Ns)>0 risk: 9 SCD applied (from [facility] [place]): Yes Pharmacological prophylaxis: NA/contraindicated Pharm contraindication: low risk/ambulating Lines/Catheters IV C[facility] Type (from [facility] PICC Line Central line still needed: Yes Urinary Cath still in place: Yes Reason Cath still needed: urinary retention Assessment/Plan Assessment/Plan ospital Course 1. Severe altered mental status likely secondary to metabolic encephalopathy, likely secondary to CO2 narcosis. The patient is also on antidepressants and loxapine at home. Surprisingly on ABG CO2 levels were not high 2. Hypoxic respiratory failure s/p intubation secondary to pneumonia/CHF 3. Lactic acidosis. Respiratory acidosis. 4. Morbid obesity. 5. Down syndrome. 6. Hypertension. 7. Diabetes. 8. History of ventral hernia repair. 9. Leukocytosis secondary to pneumonia 10. Hypothyroidism 11. KIRIT, more likely due to sepsis Assessment/Plan -ICU care - IV ABX Dose adjusted with ID -bl.cul negative SO FAR - CT chest today -decrease FWF -c/w tube feed -Vent management per pulmonary. -cardiology input is appreciated -Sedation per pulmonary -c. with vancomycin/cefepime -cw with nebs/steroids -cw iv lasix 40, additional dose today - ECHO 50-55 %. - GI Famotidine BID -DVT prophylaxis Lovenox Result Diagram: 02/17/1942902/17/19 043 Results 24hrs Laboratory Tests Test 02/16/19 14:01 02/16/19 14:23 02/16/19 17:19 02/16/19 21:30 Bedside Glucose 140 137 132 Urine Color YELLOW Urine Clarity SLIGHTLY CLOUDY A Urine pH 7.0 Urine Specific 1.026 [place] Urine Ketones NEGATIVE Urine Nitrite NEGATIVE Urine Bilirubin NEGATIVE Urine Urobilinogen NEGATIVE Urine Leukocyte NEGATIVE Esterase Urine Microscopic 3 RBC Urine Microscopic 1 WBC Urine Hemoglobin 2+ H Urine Glucose NEGATIVE Urine Total 1+ H Protein Test 02/17/19 02:59 02/17/19 04:30 02/17/19 08:20 Bedside Glucose 137 124 White Blood Count 12.3 H Red Blood Count 5.04 Hemoglobin 13.6 Hematocrit 44.2 Mean Corpuscular 87.7 Volume Mean Corpuscular 27.0 L Hemoglobin Mean Corpuscular 30.8 L Hemoglobin Concent Red Cell 19.3 H Distribution Width Platelet Count 243 Mean Platelet 9.5 Volume Immature 1.100 H Granulocytes % Neutrophils % 87.3 H Lymphocytes % 2.9 L Monocytes % 8.5 Eosinophils % 0.0 Basophils % 0.2 Nucleated Red 0.0 Blood Cells % Immature 0.130 H Granulocytes # Neutrophils # 10.7 H Lymphocytes # 0.4 L Monocytes # 1.0 H Eosinophils # 0.0 Basophils # 0.0 Nucleated Red 0.0 Blood Cells # Sodium Level 143 Potassium Level 4.0 Chloride Level 104 Carbon Dioxide 33 H Level Anion Gap 6 Blood Urea 25 H Nitrogen Creatinine 0.66 Est Glomerular > 60 Filtrat Rate mL/min Glucose Level 143 Calcium Level 8.4 Phosphorus Level 3.2 Magnesium Level 2.5 Subjective 24 Hr Interval Summary Free Text/Dictation on 505 fio2 Secretions on PEEP 5 Exam/Review of Systems Exam Vitals Vital Signs Date Temp Pulse Resp B/P (MAP) Pulse Ox O2 O2 Flow FiO2 Time Delivery Rate 02/17/19 85 12:00 02/17/19 20 104/57 94 11:30 (73) 02/17/19 [place] 11:00 l Ventilato r 02/17/19 50 08:00 02/17/19 100.4 08:00 Intake and Output 02/16/19 02/16/19 02/17/19 1515:00 23:00 07:00 IntakeIntake Total 755.0 ml 1250.0 ml 1505.5 ml OutputOutput Total 2950 ml 560 ml 600 ml BalanceBalance -2195.0 ml 690.0 ml 905.5 ml Exam orally intubated, sedated Constitutional: non-verbal Head: normocephalic Neck: supple Respiratory: diminished breath sounds Cardiovascular: regular rate and rhythm Gastrointestinal: soft, distended Results Results 24hrs Laboratory Tests Test 02/16/19 14:01 02/16/19 14:23 02/16/19 17:19 02/16/19 21:30 Bedside Glucose 140 137 132 Urine Color YELLOW Urine Clarity SLIGHTLY CLOUDY A Urine pH 7.0 Urine Specific 1.026 [place] Urine Ketones NEGATIVE Urine Nitrite NEGATIVE Urine Bilirubin NEGATIVE Urine Urobilinogen NEGATIVE Urine Leukocyte NEGATIVE Esterase Urine Microscopic 3 RBC Urine Microscopic 1 WBC Urine Hemoglobin 2+ H Urine Glucose NEGATIVE Urine Total 1+ H Protein Test 02/17/19 02:59 02/17/19 04:30 02/17/19 08:20 Bedside Glucose 137 124 White Blood Count 12.3 H Red Blood Count 5.04 Hemoglobin 13.6 Hematocrit 44.2 Mean Corpuscular 87.7 Volume Mean Corpuscular 27.0 L Hemoglobin Mean Corpuscular 30.8 L Hemoglobin Concent Red Cell 19.3 H Distribution Width Platelet Count 243 Mean Platelet 9.5 Volume Immature 1.100 H Granulocytes % Neutrophils % 87.3 H Lymphocytes % 2.9 L Monocytes % 8.5 Eosinophils % 0.0 Basophils % 0.2 Nucleated Red 0.0 Blood Cells % Immature 0.130 H Granulocytes # Neutrophils # 10.7 H Lymphocytes # 0.4 L Monocytes # 1.0 H Eosinophils # 0.0 Basophils # 0.0 Nucleated Red 0.0 Blood Cells # Sodium Level 143 Potassium Level 4.0 Chloride Level 104 Carbon Dioxide 33 H Level Anion Gap 6 Blood Urea 25 H Nitrogen Creatinine 0.66 Est Glomerular > 60 Filtrat Rate mL/min Glucose Level 143 Calcium Level 8.4 Phosphorus Level 3.2 Magnesium Level 2.5 Medications Medication Current Medications IV Flush (NS 3 ml) 3 ml PER PROTOCOL IV ; Start 02/12/19 at 15:30 Ondansetron HCl (Zofran Inj) 4 mg Q6H PRN IV NAUSEA/VOMITING; Start 02/12/19 at 15:30 Acetaminophen (Tylenol Tab) 650 mg Q6H PRN PO .PAIN 1-3 OR TEMP Last administered on 02/16/19at 11:11; Admin Dose 650 MG; Start 02/12/19 at 15:30 Docusate Sodium (Colace) 100 mg Q12H PRN PO .CONSTIPATION; Start 02/12/19 at 15:30 Famotidine (Pepcid Iv) 20 mg Q12 IV Last administered on 02/17/19at 08:17; Admin Dose 20 MG; Start 02/12/19 at 16:00 Enoxaparin Sodium (Lovenox) 40 mg DAILY SC Last administered on 02/17/19at 08:23; Admin Dose 40 MG; Start 02/13/19 at 09:00 Vancomycin HCl (Vanco Iv Per Pharmacy) VANCOMYCIN PER PHARMACY PER PROTOCOL XX ; Start 02/12/19 at 15:30 Vancomycin HCl 1.25 gm/Sodium Chloride 250 ml @ 83.333 mls/ hr Q12H IVPB Last administered on 02/17/19 05:16; Admin Dose 83.333 MLS/HR; Start 02/13/19 at 05:00 Propofol 100 ml @ 3.027 mls/ hr Q12H IV Last administered on 02/15/19 09:17; Admin Dose 18.162 MLS/HR; Start 02/13/19 at 00:30 Fentanyl 100 ml @ 2.5 mls/hr TITRATE IV Last administered on 02/16/19 19:52; Admin Dose 7.5 MLS/HR; Start 02/13/19 at 12:00 Furosemide (Lasix) 40 mg DAILY IV Last administered on 02/17/19 08:18; Admin Dose 40 MG; Start 02/14/19 at 09:30 Levothyroxine Sodium (Synthroid) 88 mcg BEFORE BREAKFAST PO Last administered on 02/17/19 07:01; Admin Dose 88 MCG; Start 02/15/19 at 07:00 Miscellaneous Information 1 ea NOTE XX ; Start 02/14/19 at 10:30 Glucose (Glutose) 15 gm Q15M PRN PO DECREASED GLUCOSE; Start 02/14/19 at 10:30 Glucose (Glutose) 22.5 gm Q15M PRN PO DECREASED GLUCOSE; Start 02/14/19 at 10:30 Dextrose (D50w Syringe) 25 ml Q15M PRN IV DECREASED GLUCOSE; Start 02/14/19 at 10:30 Dextrose (D50w Syringe) 50 ml Q15M PRN IV DECREASED GLUCOSE; Start 02/14/19 at 10:30 Glucagon (Glucagen) 1 mg Q15M PRN IM DECREASED GLUCOSE; Start 02/14/19 at 10:30 Glucose (Glutose) 15 gm Q15M PRN BUCCAL DECREASED GLUCOSE; Start 02/14/19 at 10:30 Albuterol (Ventolin Hfa) 4 puff Q4H RESP THERAPY INH Last administered on 02/17/19 08:50; Admin Dose 4 PUFF; Start 02/14/19 at 21:00 Ipratropium [place] (Atrovent Hfa) 4 puff Q4H RESP THERAPY INH Last administered on 02/17/19 08:50; Admin Dose 4 PUFF; Start 02/14/19 at 21:00 Insulin Aspart (Novolog Insulin Pen) NOVOLOG *MILD* ALGORI... Q4 SC Last administered on 02/16/19 08:44; Admin Dose 1 UNIT; Start 02/15/19 at 05:00 Midazolam HCl 50 ml @ 1 mls/hr TITRATE IV Last administered on 02/16/19 19:50; Admin Dose 6 MLS/HR; Start 02/15/19 at 10:00 Docusate Sodium (Colace Liquid Cup) 100 mg BID NGT Last administered on 02/17/19 08:17; Admin Dose 100 MG; Start 02/15/19 at 11:00 Bisacodyl (Dulcolax Supp) 10 mg DAILY PRN [place] CONSTIPATION Last administered on 02/15/19 12:15; Admin Dose 10 MG; Start 02/15/19 at 11:00 Methylprednisolone Sodium Succinate (Solu-Medrol) 40 mg Q8 IV Last administered on 02/17/19 05:16; Admin Dose 40 MG; Start 02/15/19 at 14:00 Cefepime HCl 50 ml @ 100 mls/hr Q12 IVPB Last administered on 02/17/19 08:17; Admin Dose 100 MLS/HR; Start 02/16/19 at 21:00 Levofloxacin/ Dextrose 150 ml @ 100 mls/hr Q24H IVPB Last administered on 02/16/19 15:49; Admin Dose 100 MLS/HR; Start 02/16/19 at 15:30 Furosemide (Lasix) 40 mg ONCE ONCE IV ; Start 02/17/19 at 15:00; Stop 02/17/19 at 15:01 LORNA LYONS MD Feb 17, 2019 12:51
[2019-02-17] MEDS: ACETAMINOPHEN 325 MG TAB PO PRN (12:56)
[2019-02-17] MEDS: LEVOFLOXACIN 750MG/D5W (PMX) 150 ML IVPB SCH (14:34)
[2019-02-17] MEDS ORDERED: FUROSEMIDE 40 MG INJ IV ONE (15:00)
[2019-02-17] MEDS: FENTAnyl (DRIP) 1000 mcg/100mL 100 ML IV SCH (16:28)
[2019-02-17] MEDS: BISACODYL 10 MG SUPP PR PRN (17:29)
[2019-02-17] MEDS: MIDAZOLAM (DRIP) 50 mg/50 mL 50 ML IV SCH (23:03)
[2019-02-18] VITALS (54 sets, daily range): BP systolic 76–113; BP diastolic 42–70; PULSE 74–103; RESP 2–21
[2019-02-18] MEDS: PROPOFOL 100 ML IV SCH ×3 (00:30→21:57)
[2019-02-18] MEDS: ALBUTEROL HFA 8 GM INHALER INH SCH ×6 (01:14→20:50)
[2019-02-18] MEDS: IPRATROPIUM (HFA) 12.9 GM INHALER INH SCH ×6 (01:14→20:51)
[2019-02-18] MEDS: INSULIN ASPART [NOVOLOG] 3 ML PEN SC SCH ×6 (02:10→21:00)
[2019-02-18] MEDS: VANCOMYCIN HCL 1.25 GM in SOD CHLORIDE 0.9% 250 ML IVPB SCH (05:33)
[2019-02-18] MEDS: METHYLPREDNISOLONE 40 MG INJ IV SCH ×2 (05:34→21:57)
[2019-02-18] MEDS: FENTAnyl (DRIP) 1000 mcg/100mL 100 ML IV SCH ×2 (05:42→19:45)
[2019-02-18] MEDS: LEVOTHYROXINE 88 MCG TAB PO SCH (08:15)
[2019-02-18] MEDS: FAMOTIDINE 20 MG INJ IV SCH (08:16)
[2019-02-18] MEDS: DOCUSATE SODIUM 10 MG/ML (10ML CUP) NGT SCH ×2 (08:16→21:57)
[2019-02-18] MEDS: CEFEPIME 2GM/50 ML (PMX) 50 ML IVPB SCH ×2 (08:16→21:57)
[2019-02-18] MEDS: FUROSEMIDE 40 MG INJ IV SCH (08:16)
[2019-02-18] MEDS: ENOXAPARIN 40 MG/0.4 ML SYG SC SCH (08:17)
--- NOTE | 2019-02-18 08:47 | CONS ---
Assessment/Plan Assessment/Plan Assessment/Plan (Daily) Ventilator setting; assist control of 20, tidal volume 400, PEEP of 5, 45% FiO2. Patient is currently on Versed 6 mg/h, fentanyl 75 mics per hour. Chest x-ray from yesterday was reviewed which is showing bilateral pneumonia. Assessment and recommendations; 1. Patient with history of Down syndrome admitted with multifocal complete acquired pneumonia with persistent hypoxemia. Currently on appropriate antimicrobial regimen. 2. History of diabetes and hypertension. 3. History of hypothyroidism. Continue current supportive care. Obtain follow-up chest x-ray 24 hours. Wean down FiO2 as tolerated. I did have a detailed discussion with the patient's mother at bedside and answered all her questions. Prognosis is still guarded. 35 minutes of critical care time was spent evaluating patient. Consultation Date/Type/Reason Admit Date/Time Feb 12, 2019 at 12:24 Initial Consult Date Type of Consult Pulmonary/critical care Patient's condition remains critical. Still on fairly high FiO2. Patient however has remained hemodynamically stable. Patient does become agitated off sedation. General exam; young female, morbidly obese, orally intubated and sedated. Currently in no distress. Reason for Consultation HEENT exam; supple neck, positive JVD. No lymphadenopathy. Midline trachea. No thyromegaly. Patient does have Down's facies. Dentition is fair. Pupils are small bilaterally. Orally intubated. Nasogastric tube in place. Chest exam; diminished breath sounds bilaterally. No added sounds. S1-S2 audible, no murmurs. Regular rhythm. Abdomen exam; soft, protuberant. No organomegaly. Bowel sounds are audible. Extremity exam; no peripheral edema. Pulses 1+. REPORTING MANAGER exam; patient is sedated. Requesting Provider: LORNA LYONS MD Date/Time of Note DATE: 02/18/19 TIME: 08:45 Exam/Review of Systems Exam Vitals Vital Signs Date Temp Pulse Resp B/P (MAP) Pulse Ox O2 O2 Flow FiO2 Time Delivery Rate 02/18/19 82 08:00 02/18/19 20 101/56 96 [place] 06:00 (71) l Ventilato r 02/18/19 45 05:22 02/18/19 100.2 04:00 Intake and Output 02/17/19 02/17/19 02/18/19 1515:00 23:00 07:00 IntakeIntake Total 713.0 ml 727.833 ml 632 ml OutputOutput Total 2285 ml 1090 ml 350 ml BalanceBalance -1572.0 ml -362.167 ml 282 ml Results Result Diagram: 02/18/19 0356 02/18/19 0356 Results 24hrs Laboratory Tests Test 02/17/19 12:54 02/17/19 17:22 02/17/19 21:34 02/18/19 02:06 Bedside Glucose 116 136 148 153 Test 02/18/19 03:56 02/18/19 05:59 02/18/19 08:21 White Blood Count 8.9 # Red Blood Count 5.40 Hemoglobin 14.6 Hematocrit 47.0 Mean Corpuscular Volume 87.0 Mean Corpuscular 27.0 L Hemoglobin Mean Corpuscular 31.1 L Hemoglobin Concent Red Cell Distribution 19.1 H Width Platelet Count 234 Mean Platelet Volume 9.4 Immature Granulocytes % 1.100 H Neutrophils % 82.5 H Lymphocytes % 5.4 L Monocytes % 10.7 Eosinophils % 0.0 Basophils % 0.3 Nucleated Red Blood 0.0 Cells % Immature Granulocytes # 0.100 H Neutrophils # 7.4 Lymphocytes # 0.5 L Monocytes # 1.0 H Eosinophils # 0.0 Basophils # 0.0 Nucleated Red Blood 0.0 Cells # Sodium Level 143 Potassium Level 4.4 Chloride Level 101 Carbon Dioxide Level 36 H Anion Gap 6 Blood Urea Nitrogen 31 H Creatinine 0.85 Est Glomerular Filtrat > 60 Rate mL/min Glucose Level 138 Calcium Level 9.0 Phosphorus Level 4.0 Magnesium Level 2.5 Vancomycin Level Trough 9.2 L Bedside Glucose 152 131 Medications Medication Current Medications IV Flush (NS 3 ml) 3 ml PER PROTOCOL IV ; Start 02/12/19 at 15:30 Ondansetron HCl (Zofran Inj) 4 mg Q6H PRN IV NAUSEA/VOMITING; Start 02/12/19 at 15:30 Acetaminophen (Tylenol Tab) 650 mg Q6H PRN PO .PAIN 1-3 OR TEMP Last administered on 02/17/19at 12:56; Admin Dose 650 MG; Start 02/12/19 at 15:30 Docusate Sodium (Colace) 100 mg Q12H PRN PO .CONSTIPATION; Start 02/12/19 at 15:30 Famotidine (Pepcid Iv) 20 mg Q12 IV Last administered on 02/18/19 08:16; Admin Dose 20 MG; Start 02/12/19 at 16:00 Enoxaparin Sodium (Lovenox) 40 mg DAILY SC Last administered on 02/18/19 08:17; Admin Dose 40 MG; Start 02/13/19 at 09:00 Vancomycin HCl (Vanco Iv Per Pharmacy) VANCOMYCIN PER PHARMACY PER PROTOCOL XX ; Start 02/12/19 at 15:30 Propofol 100 ml @ 3.027 mls/ hr Q12H IV Last administered on 02/15/19at 09:17; Admin Dose 18.162 MLS/HR; Start 02/13/19 at 00:30 Fentanyl 100 ml @ 2.5 mls/hr TITRATE IV Last administered on 02/18/19at 05:42; Admin Dose 7.5 MLS/HR; Start 02/13/19 at 12:00 Furosemide (Lasix) 40 mg DAILY IV Last administered on 02/18/19 08:16; Admin Dose 40 MG; Start 02/14/19 at 09:30 Levothyroxine Sodium (Synthroid) 88 mcg BEFORE BREAKFAST PO Last administered on 02/18/19at 08:15; Admin Dose 88 MCG; Start 02/15/19 at 07:00 Miscellaneous Information 1 ea NOTE XX ; Start 02/14/19 at 10:30 Glucose (Glutose) 15 gm Q15M PRN PO DECREASED GLUCOSE; Start 02/14/19 at 10:30 Glucose (Glutose) 22.5 gm Q15M PRN PO DECREASED GLUCOSE; Start 02/14/19 at 10:30 Dextrose (D50w Syringe) 25 ml Q15M PRN IV DECREASED GLUCOSE; Start 02/14/19 at 10:30 Dextrose (D50w Syringe) 50 ml Q15M PRN IV DECREASED GLUCOSE; Start 02/14/19 at 10:30 Glucagon (Glucagen) 1 mg Q15M PRN IM DECREASED GLUCOSE; Start 02/14/19 at 10:30 Glucose (Glutose) 15 gm Q15M PRN BUCCAL DECREASED GLUCOSE; Start 02/14/19 at 1 0:30 Albuterol (Ventolin Hfa) 4 puff Q4H RESP THERAPY INH Last administered on 02/18/19at 08:21; Admin Dose 4 PUFF; Start 02/14/19 at 21:00 Ipratropium [place] (Atrovent Hfa) 4 puff Q4H RESP THERAPY INH Last administered on 02/18/19 08:21; Admin Dose 4 PUFF; Start 02/14/19 at 21:00 Insulin Aspart (Novolog Insulin Pen) NOVOLOG *MILD* ALGORI... Q4 SC Last administered on 02/18/19 06:02; Admin Dose 1 UNIT; Start 02/15/19 at 05:00 Midazolam HCl 50 ml @ 1 mls/hr TITRATE IV Last administered on 02/17/19 23:03; Admin Dose 3 MLS/HR; Start 02/15/19 at 10:00 Docusate Sodium (Colace Liquid Cup) 100 mg BID NGT Last administered on 02/18/19 08:16; Admin Dose 100 MG; Start 02/15/19 at 11:00 Bisacodyl (Dulcolax Supp) 10 mg DAILY PRN [place] CONSTIPATION Last administered on 02/17/19 17:29; Admin Dose 10 MG; Start 02/15/19 at 11:00 Methylprednisolone Sodium Succinate (Solu-Medrol) 40 mg Q8 IV Last administered on 02/18/19 05:34; Admin Dose 40 MG; Start 02/15/19 at 14:00 Cefepime HCl 50 ml @ 100 mls/hr Q12 IVPB Last administered on 02/18/19 08:16; Admin Dose 100 MLS/HR; Start 02/16/19 at 21:00 Levofloxacin/ Dextrose 150 ml @ 100 mls/hr Q24H IVPB Last administered on 02/17/19 14:34; Admin Dose 100 MLS/HR; Start 02/16/19 at 15:30 Vancomycin HCl 1.5 gm/Sodium Chloride 250 ml @ 83.333 mls/ hr Q12H IVPB ; Start 02/18/19 at 17:00 WILLA MARQUEZ Feb 18, 2019 08:47
--- NOTE | 2019-02-18 10:29 | CONS ---
Consult Date/Type/Reason Admit Date/Time Feb 12, 2019 at 12:24 Initial Consult Date Type of Consultation: Pulm/CCM Requesting Provider: LORNA LYONS MD Date/Time of Note DATE: 02/18/19 TIME: 10:27 Subjective NO acute events - pt comfortable - no CP now - resp support - intubated - con't gentle diuresis - with good response to lasix now. ROS: No fever, no chills, no nausea, no vomiting, no diarrhea/constipation - intubated, con't supportive RX. Objective Vitals Vital Signs Date Temp Pulse Resp B/P (MAP) Pulse Ox O2 O2 Flow FiO2 Time Delivery Rate 02/18/19 82 08:00 02/18/19 2 97 Mechanical 06:30 Ventilator 02/18/19 45 05:22 02/18/19 100.2 04:00 Intake and Output 02/17/19 02/17/19 02/18/19 1515:00 23:00 07:00 IntakeIntake Total 713.0 ml 727.833 ml 632 ml OutputOutput Total 2285 ml 1090 ml 350 ml BalanceBalance -1572.0 ml -362.167 ml 282 ml Exam General: WN/WD/NAD, AOx 0 HEENT: Unicetric/atraumatic/EOMI (does not follow commands) NECK: JVD elevated, no thyromegaly - intubated Lymph: no lymphadenopathy HEART: regular with no S3, II/ systolic murmur at apex LUNGS: Coarse sounds ABD: soft, NT, ND, +BS : Intact Neuro: non focal SKIN: chronic changes EXT: trace edema Results/Medications Result Diagram: 02/18/19 0356 02/18/19 0356 Results 24 hrs Laboratory Tests Test 02/17/19 12:54 02/17/19 17:22 02/17/19 21:34 02/18/19 02:06 Bedside Glucose 116 136 148 153 Test 02/18/19 03:56 02/18/19 05:59 02/18/19 08:21 White Blood Count 8.9 # Red Blood Count 5.40 Hemoglobin 14.6 Hematocrit 47.0 Mean Corpuscular Volume 87.0 Mean Corpuscular 27.0 L Hemoglobin Mean Corpuscular 31.1 L Hemoglobin Concent Red Cell Distribution 19.1 H Width Platelet Count 234 Mean Platelet Volume 9.4 Immature Granulocytes % 1.100 H Neutrophils % 82.5 H Lymphocytes % 5.4 L Monocytes % 10.7 Eosinophils % 0.0 Basophils % 0.3 Nucleated Red Blood 0.0 Cells % Immature Granulocytes # 0.100 H Neutrophils # 7.4 Lymphocytes # 0.5 L Monocytes # 1.0 H Eosinophils # 0.0 Basophils # 0.0 Nucleated Red Blood 0.0 Cells # Sodium Level 143 Potassium Level 4.4 Chloride Level 101 Carbon Dioxide Level 36 H Anion Gap 6 Blood Urea Nitrogen 31 H Creatinine 0.85 Est Glomerular Filtrat > 60 Rate mL/min Glucose Level 138 Calcium Level 9.0 Phosphorus Level 4.0 Magnesium Level 2.5 Vancomycin Level Trough 9.2 L Bedside Glucose 152 131 Home Meds Reported Medications [place] Carbonate* (Zion*) 300 Mg Cap, 600 MG PO QHS, CAP 02/12/19 Levothyroxine Sodium* (Levoxyl*) 88 Mcg Tablet, 88 MCG PO BEFORE BREAKFAST, #30 TAB 02/12/19 Loxapine Succinate (Loxapine) 10 Mg Capsule, 10 MG PO QHS, CAP 02/12/19 Cyanocobalamin* (Vitamin B12*) 100 Mcg Tab, 100 MCG PO DAILY, TAB 02/12/19 Loratadine* (Loratadine*) 10 Mg Tablet, 10 MG PO DAILY, #30 TAB 02/12/19 Metformin Hcl* (Metformin Hcl*) 500 Mg Tablet, 500 MG PO WITH BREAKFAST, #30 TAB 02/12/19 Propranolol Hcl* (Propranolol Hcl*) 10 Mg Tablet, 10 MG PO BID, TAB 02/12/19 Ergocalciferol (Vitamin D2) (VITAMIN D2) 50,000 Unit Capsule, 96625 UNIT PO EVERY SUNDAY, CAP 02/12/19 Discontinued Reported Medications Cholecalciferol* (Vitamin D3*) 1,000 Unit Tablet, 1000 UNIT PO DAILY, TAB 11/09/17 Topiramate* (Topamax*) 25 Mg Cap.sprink, 50 MG PO QAM, CAP 11/09/17 Topiramate* (Topamax*) 25 Mg Cap.sprink, 100 MG PO QPM, CAP 11/09/17 Sertraline Hcl* (Sertraline Hcl*) 25 Mg Tablet, 75 MG PO DAILY, #30 TAB 11/09/17 Levothyroxine Sodium* (Levothyroxine Sodium*) 75 Mcg Tablet, 75 MCG PO BEFORE BREAKFAST, #30 TAB 11/09/17 Medications Current Medications IV Flush (NS 3 ml) 3 ml PER PROTOCOL IV ; Start 02/12/19 at 15:30 Ondansetron HCl (Zofran Inj) 4 mg Q6H PRN IV NAUSEA/VOMITING; Start 02/12/19 at 15:30 Acetaminophen (Tylenol Tab) 650 mg Q6H PRN PO .PAIN 1-3 OR TEMP Last administered on 02/17/19at 12:56; Admin Dose 650 MG; Start 02/12/19 at 15:30 Docusate Sodium (Colace) 100 mg Q12H PRN PO .CONSTIPATION; Start 02/12/19 at 15:30 Famotidine (Pepcid Iv) 20 mg Q12 IV Last administered on 02/18/19 08:16; Admin Dose 20 MG; Start 02/12/19 at 16:00 Enoxaparin Sodium (Lovenox) 40 mg DAILY SC Last administered on 02/18/19 08:17; Admin Dose 40 MG; Start 02/13/19 at 09:00 Vancomycin HCl (Vanco Iv Per Pharmacy) VANCOMYCIN PER PHARMACY PER PROTOCOL XX ; Start 02/12/19 at 15:30 Propofol 100 ml @ 3.027 mls/ hr Q12H IV Last administered on 02/15/19 09:17; Admin Dose 18.162 MLS/HR; Start 02/13/19 at 00:30 Fentanyl 100 ml @ 2.5 mls/hr TITRATE IV Last administered on 02/18/19 05:42; Admin Dose 7.5 MLS/HR; Start 02/13/19 at 12:00 Furosemide (Lasix) 40 mg DAILY IV Last administered on 02/18/19 08:16; Admin Dose 40 MG; Start 02/14/19 at 09:30 Levothyroxine Sodium (Synthroid) 88 mcg BEFORE BREAKFAST PO Last administered on 02/18/19 08:15; Admin Dose 88 MCG; Start 02/15/19 at 07:00 Miscellaneous Information 1 ea NOTE XX ; Start 02/14/19 at 10:30 Glucose (Glutose) 15 gm Q15M PRN PO DECREASED GLUCOSE; Start 02/14/19 at 10:30 Glucose (Glutose) 22.5 gm Q15M PRN PO DECREASED GLUCOSE; Start 02/14/19 at 10:30 Dextrose (D50w Syringe) 25 ml Q15M PRN IV DECREASED GLUCOSE; Start 02/14/19 at 10:30 Dextrose (D50w Syringe) 50 ml Q15M PRN IV DECREASED GLUCOSE; Start 02/14/19 at 10:30 Glucagon (Glucagen) 1 mg Q15M PRN IM DECREASED GLUCOSE; Start 02/14/19 at 10:30 Glucose (Glutose) 15 gm Q15M PRN BUCCAL DECREASED GLUCOSE; Start 02/14/19 at 10:30 Albuterol (Ventolin Hfa) 4 puff Q4H RESP THERAPY INH Last administered on 02/18/19 08:21; Admin Dose 4 PUFF; Start 02/14/19 at 21:00 Ipratropium [place] (Atrovent Hfa) 4 puff Q4H RESP THERAPY INH Last administered on 02/18/19 08:21; Admin Dose 4 PUFF; Start 02/14/19 at 21:00 Insulin Aspart (Novolog Insulin Pen) NOVOLOG *MILD* ALGORI... Q4 SC Last administered on 02/18/19 06:02; Admin Dose 1 UNIT; Start 02/15/19 at 05:00 Midazolam HCl 50 ml @ 1 mls/hr TITRATE IV Last administered on 02/17/19 23:03; Admin Dose 3 MLS/HR; Start 02/15/19 at 10:00 Docusate Sodium (Colace Liquid Cup) 100 mg BID NGT Last administered on 02/18/19 08:16; Admin Dose 100 MG; Start 02/15/19 at 11:00 Bisacodyl (Dulcolax Supp) 10 mg DAILY PRN [place] CONSTIPATION Last administered on 02/17/19 17:29; Admin Dose 10 MG; Start 02/15/19 at 11:00 Methylprednisolone Sodium Succinate (Solu-Medrol) 40 mg Q8 IV Last administered on 02/18/19 05:34; Admin Dose 40 MG; Start 02/15/19 at 14:00 Cefepime HCl 50 ml @ 100 mls/hr Q12 IVPB Last administered on 02/18/19 08:16; Admin Dose 100 MLS/HR; Start 02/16/19 at 21:00 Levofloxacin/ Dextrose 150 ml @ 100 mls/hr Q24H IVPB Last administered on 02/17/19at 14:34; Admin Dose 100 MLS/HR; Start 02/16/19 at 15:30 Vancomycin HCl 1.5 gm/Sodium Chloride 250 ml @ 83.333 mls/ hr Q12H IVPB ; Start 02/18/19 at 17:00 Assessment/Plan Hospital Course (Demo Recall) 1. Respiratory failure, assess for congestive heart failure - now intubated, con't supportive Rx. Con't to wean as tolerated. Con't to wean per pulmonary team. Better fluid staus now. NOt weaning now. 2. Lower extremity edema, assess for congestive heart failure- con't diuresis - increased urine output. On meds now. Rate controlled. Improved. 3. Tachycardia, improved, status post intubation, likely due to respiratory distress. Sinus tach - better now. Treated. NOw in sinus at 90s - con't resp care., Better overall. 4. Abnormal electrocardiogram with right axis deviation and T-wave flattening. Assess for acute coronary syndrome. NO CP now. 5. Down syndrome. Supportive Rx as needed. 6. Hypothyroidism - on meds. Treated. 7. Diabetes mellitus- con't to keep euglycemic. Con't to keep euglycemic. 8. Obstructive sleep apnea- on vent. 9. CHF - diast HF - acute on chronic, con'y IV Lasix at 40 daily now- responded well to diuresis. BRIAN PATTERSON MD Feb 18, 2019 10:29
[2019-02-18] MEDS: MIDAZOLAM (DRIP) 50 mg/50 mL 50 ML IV SCH ×2 (11:01→19:45)
--- NOTE | 2019-02-18 11:07 | PN ---
Date/Time of Note Date/Time of Note DATE: 02/18/19 TIME: 11:04 Assessment/Plan VTE Prophylaxis Risk score (from Ns)>0 risk: 7 SCD applied (from [facility]): Yes Pharmacological prophylaxis: NA/contraindicated Pharm contraindication: low risk/ambulating Lines/Catheters IV C[facility]ter Type (from [facility]): Peripheral IV Urinary Cath still in place: Yes Reason Cath still needed: urinary retention Assessment/Plan Assessment/Plan Hosspital Course 1. Severe altered mental status likely secondary to metabolic encephalopathy, likely secondary to CO2 narcosis. The patient is also on antidepressants and loxapine at home. Surprisingly on ABG CO2 levels were not high 2. Hypoxic respiratory failure s/p intubation secondary to pneumonia/CHF 3. Lactic acidosis. Respiratory acidosis. 4. Morbid obesity. 5. Down syndrome. 6. Hypertension. 7. Diabetes. 8. History of ventral hernia repair. 9. Leukocytosis secondary to pneumonia 10. Hypothyroidism 11. KIRIT, more likely due to sepsis Assessment/Plan -ICU care - Reduce lasix due to worseinng alkalosis - ABG - IV ABX Dose adjusted with ID -bl.cul negative SO FAR - fi02 45% -c/w tube feed -Vent management per pulmonary. -cardiology input is appreciated -Sedation per pulmonary -c. with vancomycin/cefepime -cw with nebs/steroids/ dec steroids - ECHO 50-55 %. - GI Famotidine BID -DVT prophylaxis Lovenox Result Diagram: 02/18/19 0356 02/18/19 0356 Results 24hrs Laboratory Tests Test 02/17/19 12:54 02/17/19 17:22 02/17/19 21:34 02/18/19 02:06 Bedside Glucose 116 136 148 153 Test 02/18/19 03:56 02/18/19 05:59 02/18/19 08:21 White Blood Count 8.9 # Red Blood Count 5.40 Hemoglobin 14.6 Hematocrit 47.0 Mean Corpuscular Volume 87.0 Mean Corpuscular 27.0 L Hemoglobin Mean Corpuscular 31.1 L Hemoglobin Concent Red Cell Distribution 19.1 H Width Platelet Count 234 Mean Platelet Volume 9.4 Immature Granulocytes % 1.100 H Neutrophils % 82.5 H Lymphocytes % 5.4 L Monocytes % 10.7 Eosinophils % 0.0 Basophils % 0.3 Nucleated Red Blood 0.0 Cells % Immature Granulocytes # 0.100 H Neutrophils # 7.4 Lymphocytes # 0.5 L Monocytes # 1.0 H Eosinophils # 0.0 Basophils # 0.0 Nucleated Red Blood 0.0 Cells # Sodium Level 143 Potassium Level 4.4 Chloride Level 101 Carbon Dioxide Level 36 H Anion Gap 6 Blood Urea Nitrogen 31 H Creatinine 0.85 Est Glomerular Filtrat > 60 Rate mL/min Glucose Level 138 Calcium Level 9.0 Phosphorus Level 4.0 Magnesium Level 2.5 Vancomycin Level Trough 9.2 L Bedside Glucose 152 131 Subjective 24 Hr Interval Summary Free Text/Dictation on FiO2 of 45%. Net -1.7 L bicarb going up Exam/Review of Systems Exam Vitals Vital Signs Date Temp Pulse Resp B/P (MAP) Pulse Ox O2 O2 Flow FiO2 Time Delivery Rate 02/18/19 76 20 112/66 94 10:00 (81) 02/18/19 Mechanical 09:30 Ventilator 02/18/19 99.8 08:00 02/18/19 45 05:22 Intake and Output 02/17/19 02/17/19 02/18/19 1515:00 23:00 07:00 IntakeIntake Total 713.0 ml 727.833 ml 812 ml OutputOutput Total 2285 ml 1090 ml 650 ml BalanceBalance -1572.0 ml -362.167 ml 162 ml Exam orally intubated, sedated , moves exterimities Constitutional: non-verbal Head: normocephalic Neck: supple Respiratory: diminished breath sounds Cardiovascular: regular rate and rhythm Gastrointestinal: soft, distended Results Results 24hrs Laboratory Tests Test 02/17/19 12:54 02/17/19 17:22 02/17/19 21:34 02/18/19 02:06 Bedside Glucose 116 136 148 153 Test 02/18/19 03:56 02/18/19 05:59 02/18/19 08:21 White Blood Count 8.9 # Red Blood Count 5.40 Hemoglobin 14.6 Hematocrit 47.0 Mean Corpuscular Volume 87.0 Mean Corpuscular 27.0 L Hemoglobin Mean Corpuscular 31.1 L Hemoglobin Concent Red Cell Distribution 19.1 H Width Platelet Count 234 Mean Platelet Volume 9.4 Immature Granulocytes % 1.100 H Neutrophils % 82.5 H Lymphocytes % 5.4 L Monocytes % 10.7 Eosinophils % 0.0 Basophils % 0.3 Nucleated Red Blood 0.0 Cells % Immature Granulocytes # 0.100 H Neutrophils # 7.4 Lymphocytes # 0.5 L Monocytes # 1.0 H Eosinophils # 0.0 Basophils # 0.0 Nucleated Red Blood 0.0 Cells # Sodium Level 143 Potassium Level 4.4 Chloride Level 101 Carbon Dioxide Level 36 H Anion Gap 6 Blood Urea Nitrogen 31 H Creatinine 0.85 Est Glomerular Filtrat > 60 Rate mL/min Glucose Level 138 Calcium Level 9.0 Phosphorus Level 4.0 Magnesium Level 2.5 Vancomycin Level Trough 9.2 L Bedside Glucose 152 131 Medications Medication Current Medications IV Flush (NS 3 ml) 3 ml PER PROTOCOL IV ; Start 02/12/19 at 15:30 Ondansetron HCl (Zofran Inj) 4 mg Q6H PRN IV NAUSEA/VOMITING; Start 02/12/19 at 15:30 Acetaminophen (Tylenol Tab) 650 mg Q6H PRN PO .PAIN 1-3 OR TEMP Last administered on 02/17/19 12:56; Admin Dose 650 MG; Start 02/12/19 at 15:30 Docusate Sodium (Colace) 100 mg Q12H PRN PO .CONSTIPATION; Start 02/12/19 at 15:30 Enoxaparin Sodium (Lovenox) 40 mg DAILY SC Last administered on 02/18/19 08:17; Admin Dose 40 MG; Start 02/13/19 at 09:00 Vancomycin HCl (Vanco Iv Per Pharmacy) VANCOMYCIN PER PHARMACY PER PROTOCOL XX ; Start 02/12/19 at 15:30 Propofol 100 ml @ 3.027 mls/ hr Q12H IV Last administered on 02/15/19 09:17; Admin Dose 18.162 MLS/HR; Start 02/13/19 at 00:30 Fentanyl 100 ml @ 2.5 mls/hr TITRATE IV Last administered on 02/18/19 05:42; Admin Dose 7.5 MLS/HR; Start 02/13/19 at 12:00 Furosemide (Lasix) 40 mg DAILY IV Last administered on 02/18/19 08:16; Admin Dose 40 MG; Start 02/14/19 at 09:30 Levothyroxine Sodium (Synthroid) 88 mcg BEFORE BREAKFAST PO Last administered on 02/18/19 08:15; Admin Dose 88 MCG; Start 02/15/19 at 07:00 Miscellaneous Information 1 ea NOTE XX ; Start 02/14/19 at 10:30 Glucose (Glutose) 15 gm Q15M PRN PO DECREASED GLUCOSE; Start 02/14/19 at 10:30 Glucose (Glutose) 22.5 gm Q15M PRN PO DECREASED GLUCOSE; Start 02/14/19 at 10:30 Dextrose (D50w Syringe) 25 ml Q15M PRN IV DECREASED GLUCOSE; Start 02/14/19 at 10:30 Dextrose (D50w Syringe) 50 ml Q15M PRN IV DECREASED GLUCOSE; Start 02/14/19 at 10:30 Glucagon (Glucagen) 1 mg Q15M PRN IM DECREASED GLUCOSE; Start 02/14/19 at 10:30 Glucose (Glutose) 15 gm Q15M PRN BUCCAL DECREASED GLUCOSE; Start 02/14/19 at 10:30 Albuterol (Ventolin Hfa) 4 puff Q4H RESP THERAPY INH Last administered on 02/18/19 08:21; Admin Dose 4 PUFF; Start 02/14/19 at 21:00 Ipratropium [place] (Atrovent Hfa) 4 puff Q4H RESP THERAPY INH Last administered on 02/18/19 08:21; Admin Dose 4 PUFF; Start 02/14/19 at 21:00 Insulin Aspart (Novolog Insulin Pen) NOVOLOG *MILD* ALGORI... Q4 SC Last administered on 02/18/19 06:02; Admin Dose 1 UNIT; Start 02/15/19 at 05:00 Midazolam HCl 50 ml @ 1 mls/hr TITRATE IV Last administered on 02/18/19 11:01; Admin Dose 6 MLS/HR; Start 02/15/19 at 10:00 Docusate Sodium (Colace Liquid Cup) 100 mg BID NGT Last administered on 02/18/19 08:16; Admin Dose 100 MG; Start 02/15/19 at 11:00 Bisacodyl (Dulcolax Supp) 10 mg DAILY PRN [place] CONSTIPATION Last administered on 02/17/19 17:29; Admin Dose 10 MG; Start 02/15/19 at 11:00 Methylprednisolone Sodium Succinate (Solu-Medrol) 40 mg Q8 IV Last administered on 02/18/19 05:34; Admin Dose 40 MG; Start 02/15/19 at 14:00 Cefepime HCl 50 ml @ 100 mls/hr Q12 IVPB Last administered on 02/18/19at 08:16; Admin Dose 100 MLS/HR; Start 02/16/19 at 21:00 Levofloxacin/ Dextrose 150 ml @ 100 mls/hr Q24H IVPB Last administered on 02/17/19at 14:34; Admin Dose 100 MLS/HR; Start 02/16/19 at 15:30 Vancomycin HCl 1.5 gm/Sodium Chloride 250 ml @ 83.333 mls/ hr Q12H IVPB ; Start 02/18/19 at 17:00 Famotidine (Pepcid) 20 mg Q12 NGT ; Start 02/18/19 at 21:00 LORNA LYONS MD Feb 18, 2019 11:07
--- NOTE | 2019-02-18 12:49 | CONS ---
Assessment/Plan Assessment/Plan Hospital Course (Demo Recall) Patient spiked fever of 101.3 yesterday this morning had a fever of 100.2 she is intubated sedated in no distress. WBC 8.9 platelets 234 neutrophils 82.5 BUN 31 creatinine 0.85 Microbiology: Endotracheal aspirate growing staph aureus, blood and urine culture since admission negative CT of the chest yesterday revealed consolidation bilateral lower lobes Indwelling: Endotracheal tube, NG tube, Nelson, PICC line Antimicrobials: Vanco, cefepime, Levaquin Physical examination: Obese well-developed middle-aged woman who is intubated sedated in no distress. Head atraumatic normocephalic neck is obese chest rise symmetrical breath sounds diminished bases. Heart: S1-S2. Abdomen soft bowel sounds present. Extremities without cyanosis Assessment: 1. Sepsis with ongoing fevers 2. Bilateral multifocal pneumonia 3. Acute respiratory failure 4. Diabetes 5. Morbid obesity 6. Down syndrome Plan: Patient is on appropriate antibiotic regimen, awaiting for final sputum cultures and sensitivities, continue vent management per pulmonary Consultation Date/Type/Reason Admit Date/Time Feb 12, 2019 at 12:24 Initial Consult Date Type of Consult id Requesting Provider: LORNA LYONS MD Date/Time of Note DATE: 02/18/19 TIME: 12:48 Exam/Review of Systems Exam Vitals Vital Signs Date Temp Pulse Resp B/P (MAP) Pulse Ox O2 O2 Flow FiO2 Time Delivery Rate 02/18/19 80 20 104/66 94 Mechanical 12:00 (79) Ventilator 02/18/19 98.5 11:30 02/18/19 45 11:10 Intake and Output 02/17/19 02/17/19 02/18/19 1515:00 23:00 07:00 IntakeIntake Total 713.0 ml 727.833 ml 826 ml OutputOutput Total 2285 ml 1090 ml 650 ml BalanceBalance -1572.0 ml -362.167 ml 176 ml Results Result Diagram: 02/18/19 0356 02/18/19 0356 Results 24hrs Laboratory Tests Test 02/17/19 12:54 02/17/19 17:22 02/17/19 21:34 02/18/19 02:06 Bedside Glucose 116 136 148 153 Test 02/18/19 03:56 02/18/19 05:59 02/18/19 08:21 02/18/19 11:00 White Blood Count 8.9 # Red Blood Count 5.40 Hemoglobin 14.6 Hematocrit 47.0 Mean Corpuscular 87.0 Volume Mean Corpuscular 27.0 L Hemoglobin Mean Corpuscular 31.1 L Hemoglobin Concent Red Cell 19.1 H Distribution Width Platelet Count 234 Mean Platelet 9.4 Volume Immature 1.100 H Granulocytes % Neutrophils % 82.5 H Lymphocytes % 5.4 L Monocytes % 10.7 Eosinophils % 0.0 Basophils % 0.3 Nucleated Red 0.0 Blood Cells % Immature 0.100 H Granulocytes # Neutrophils # 7.4 Lymphocytes # 0.5 L Monocytes # 1.0 H Eosinophils # 0.0 Basophils # 0.0 Nucleated Red 0.0 Blood Cells # Sodium Level 143 Potassium Level 4.4 Chloride Level 101 Carbon Dioxide 36 H Level Anion Gap 6 Blood Urea 31 H Nitrogen Creatinine 0.85 Est Glomerular > 60 Filtrat Rate mL/min Glucose Level 138 Calcium Level 9.0 Phosphorus Level 4.0 Magnesium Level 2.5 Vancomycin Level 9.2 L Trough Bedside Glucose 152 131 Blood Gas Specimen Blood arterial Source Arterial Blood 02/18/2019 11:20:02 Date Drawn AM Arterial Blood pH 7.480 H (Temp corrected) Arterial Blood 45.0 pCO2 (Temp correct) Arterial Blood pO2 68.4 L (Temp corrected) Arterial Blood 32.8 H HCO3 Arterial Blood 8.1 H Base Excess Arterial Blood 93.9 L Oxygen Saturation Corwin Test ACCEPTAB Arterial Blood Gas Left Radial Puncture Site Arterial 0.7 Blood Carboxyhemog lobin Arterial Blood 0.3 Methemoglobin Blood Gas A-a O2 201.3 H Differential Oxyhemoglobin 93.0 Percent Blood Gas 37.0 Temperature Blood Gas 20.0 Respiration Rate Blood Gas Actual 20 Respiration Rate Blood Gas Modality VENT - AC FiO2 45.0 Blood Gas Tidal 400.0 Volume Blood Gas Low PEEP 5.0 Setting Blood Gas Notified TM Whom Blood Gas Notified 02/18/2019 11:37:41 Time AM Medications Medication Current Medications IV Flush (NS 3 ml) 3 ml PER PROTOCOL IV ; Start 02/12/19 at 15:30 Ondansetron HCl (Zofran Inj) 4 mg Q6H PRN IV NAUSEA/VOMITING; Start 02/12/19 at 15:30 Acetaminophen (Tylenol Tab) 650 mg Q6H PRN PO .PAIN 1-3 OR TEMP Last administered on 02/17/19at 12:56; Admin Dose 650 MG; Start 02/12/19 at 15:30 Docusate Sodium (Colace) 100 mg Q12H PRN PO .CONSTIPATION; Start 02/12/19 at 15:30 Enoxaparin Sodium (Lovenox) 40 mg DAILY SC Last administered on 02/18/19at 08:17; Admin Dose 40 MG; Start 02/13/19 at 09:00 Vancomycin HCl (Vanco Iv Per Pharmacy) VANCOMYCIN PER PHARMACY PER PROTOCOL XX ; Start 02/12/19 at 15:30 Propofol 100 ml @ 3.027 mls/ hr Q12H IV Last administered on 02/15/19at 09:17; Admin Dose 18.162 MLS/HR; Start 02/13/19 at 00:30 Fentanyl 100 ml @ 2.5 mls/hr TITRATE IV Last administered on 02/18/19at 05:42; Admin Dose 7.5 MLS/HR; Start 02/13/19 at 12:00 Levothyroxine Sodium (Synthroid) 88 mcg BEFORE BREAKFAST PO Last administered on 02/18/19at 08:15; Admin Dose 88 MCG; Start 02/15/19 at 07:00 Miscellaneous Information 1 ea NOTE XX ; Start 02/14/19 at 10:30 Glucose (Glutose) 15 gm Q15M PRN PO DECREASED GLUCOSE; Start 02/14/19 at 10:30 Glucose (Glutose) 22.5 gm Q15M PRN PO DECREASED GLUCOSE; Start 02/14/19 at 10:30 Dextrose (D50w Syringe) 25 ml Q15M PRN IV DECREASED GLUCOSE; Start 02/14/19 at 10:30 Dextrose (D50w Syringe) 50 ml Q15M PRN IV DECREASED GLUCOSE; Start 02/14/19 at 10:30 Glucagon (Glucagen) 1 mg Q15M PRN IM DECREASED GLUCOSE; Start 02/14/19 at 10:30 Glucose (Glutose) 15 gm Q15M PRN BUCCAL DECREASED GLUCOSE; Start 02/14/19 at 10:30 Albuterol (Ventolin Hfa) 4 puff Q4H RESP THERAPY INH Last administered on 02/18/19at 08:21; Admin Dose 4 PUFF; Start 02/14/19 at 21:00 Ipratropium [place] (Atrovent Hfa) 4 puff Q4H RESP THERAPY INH Last administered on 02/18/19 08:21; Admin Dose 4 PUFF; Start 02/14/19 at 21:00 Insulin Aspart (Novolog Insulin Pen) NOVOLOG *MILD* ALGORI... Q4 SC Last administered on 02/18/19 06:02; Admin Dose 1 UNIT; Start 02/15/19 at 05:00 Midazolam HCl 50 ml @ 1 mls/hr TITRATE IV Last administered on 02/18/19 11:01; Admin Dose 6 MLS/HR; Start 02/15/19 at 10:00 Docusate Sodium (Colace Liquid Cup) 100 mg BID NGT Last administered on 02/18/19 08:16; Admin Dose 100 MG; Start 02/15/19 at 11:00 Bisacodyl (Dulcolax Supp) 10 mg DAILY PRN [place] CONSTIPATION Last administered on 02/17/19 17:29; Admin Dose 10 MG; Start 02/15/19 at 11:00 Cefepime HCl 50 ml @ 100 mls/hr Q12 IVPB Last administered on 02/18/19 08:16; Admin Dose 100 MLS/HR; Start 02/16/19 at 21:00 Levofloxacin/ Dextrose 150 ml @ 100 mls/hr Q24H IVPB Last administered on 02/17/19 14:34; Admin Dose 100 MLS/HR; Start 02/16/19 at 15:30 Vancomycin HCl 1.5 gm/Sodium Chloride 250 ml @ 83.333 mls/ hr Q12H IVPB ; Start 02/18/19 at 17:00 Famotidine (Pepcid) 20 mg Q12 NGT ; Start 02/18/19 at 21:00 Furosemide (Lasix) 20 mg DAILY IV ; Start 02/19/19 at 09:00 Methylprednisolone Sodium Succinate (Solu-Medrol) 40 mg Q12 IV ; Start 02/18/19 at 21:00 RUDOLPH YOON NP Feb 18, 2019 12:49
[2019-02-18] MEDS: LEVOFLOXACIN 750MG/D5W (PMX) 150 ML IVPB SCH (15:36)
[2019-02-18] MEDS: VANCOMYCIN HCL 1.5 GM in SOD CHLORIDE 0.9% 250 ML IVPB SCH (17:00)
[2019-02-18] MEDS: FAMOTIDINE 20 MG TAB NGT SCH (21:57)
[2019-02-19] VITALS (37 sets, daily range): BP systolic 92–122; BP diastolic 46–96; PULSE 83–112; RESP 20–32
[2019-02-19] MEDS: INSULIN ASPART [NOVOLOG] 3 ML PEN SC SCH ×6 (00:49→20:38)
[2019-02-19] MEDS: ALBUTEROL HFA 8 GM INHALER INH SCH ×6 (01:15→21:10)
[2019-02-19] MEDS: IPRATROPIUM (HFA) 12.9 GM INHALER INH SCH ×6 (01:15→21:09)
[2019-02-19] MEDS: MIDAZOLAM (DRIP) 50 mg/50 mL 50 ML IV SCH ×3 (04:21→21:22)
[2019-02-19] MEDS: VANCOMYCIN HCL 1.5 GM in SOD CHLORIDE 0.9% 250 ML IVPB SCH ×2 (04:48→17:07)
[2019-02-19] MEDS: LEVOTHYROXINE 88 MCG TAB PO SCH (06:40)
[2019-02-19] MEDS: FENTAnyl (DRIP) 1000 mcg/100mL 100 ML IV SCH (06:46)
[2019-02-19] MEDS: METHYLPREDNISOLONE 40 MG INJ IV SCH ×2 (08:23→20:38)
[2019-02-19] MEDS: FAMOTIDINE 20 MG TAB NGT SCH ×2 (08:23→20:38)
[2019-02-19] MEDS: FUROSEMIDE 20 MG INJ IV SCH (08:23)
[2019-02-19] MEDS: ACETAMINOPHEN 325 MG TAB PO PRN ×2 (08:24→23:33)
[2019-02-19] MEDS: ENOXAPARIN 40 MG/0.4 ML SYG SC SCH (08:25)
--- NOTE | 2019-02-19 08:29 | CONS ---
Assessment/Plan Assessment/Plan Assessment/Plan (Daily) Ventilator setting; assist control of 20, tidal volume 400, PEEP of 5, 60% FiO2. Patient is currently on Versed 6 mg/h, fentanyl 75 mics per hour. Assessment and recommendations; 1. Patient admitted with severe bilateral pneumonia without any interval improvement despite adequate broad-spectrum antimicrobial coverage. 2. Possibly some element of CHF. 3. Down syndrome. Continue current supportive care. Obtain follow-up chest x-ray. I did have a detailed discussion the patient's mother at bedside and answered all her questions. Prognosis is guarded. Consultation Date/Type/Reason Admit Date/Time Feb 12, 2019 at 12:24 Initial Consult Date Type of Consult Pulmonary/critical care Patient's condition remains critical. Still on fairly high FiO2. Patient however has remained hemodynamically stable. Patient does become agitated off sedation. General exam; young female, morbidly obese, orally intubated and sedated. Currently in no distress. Requesting Provider: LORNA LYONS MD Date/Time of Note DATE: 02/19/19 TIME: 08:27 24 HR Interval Summary Free Text/Dictation Patient's condition is critical. Patient developing worsening hypoxemia requiring higher FiO2 now. General exam; young lady, with apparent Down's facies. Orally intubated. Sedated. Currently in no distress. Exam/Review of Systems Exam Vitals Vital Signs Date Temp Pulse Resp B/P (MAP) Pulse Ox O2 O2 Flow FiO2 Time Delivery Rate 02/19/19 101 24 113/57 93 Mechanical 06:00 (75) Ventilator 02/19/19 60 05:23 02/19/19 99.2 04:00 Intake and Output 02/18/19 02/18/19 02/19/19 1515:00 23:00 07:00 IntakeIntake Total 610 ml 578.0 ml 768.000 ml OutputOutput Total 1090 ml 340 ml 420 ml BalanceBalance -480 ml 238.0 ml 348.000 ml Exam H EENT exam; supple neck, no lymphadenopathy. Midline trachea. No thyromegaly. Orally intubated. Nasogastric tube in place. No neck masses. JVD difficult to see because of short neck. Chest exam; diminished breath sounds bilaterally. S1-S2 audible, no murmurs. Regular rhythm. Abdomen exam; soft, protuberant. No organomegaly. Bowel sounds are audible. Extremity exam; trace edema. OPERATIONAL ASSISTANT exam; patient is sedated. Results Result Diagram: 02/19/19 0400 02/19/19 0400 Results 24hrs Laboratory Tests Test 02/18/19 11:00 02/18/19 13:33 02/18/19 17:01 02/18/19 21:56 Blood Gas Blood arterial Specimen Source Arterial Blood 02/18/2019 11:20: Date Drawn 02 AM Arterial Blood 7.480 H pH (Temp corrected) Arterial Blood 45.0 pCO2 (Temp correct) Arterial Blood 68.4 L pO2 (Temp corrected) Arterial Blood 32.8 H HCO3 Arterial Blood 8.1 H Base Excess Arterial Blood 93.9 L Oxygen Saturatio n Corwin Test ACCEPTAB Arterial Blood Left Radial Gas Puncture Site Arterial 0.7 Blood Carboxyhem oglobin Arterial Blood 0.3 Methemoglobin Blood Gas A-a O2 201.3 H Differential Oxyhemoglobin 93.0 Percent Blood Gas 37.0 Temperature Blood Gas 20.0 Respiration Rate Blood Gas Actual 20 Respiration Rate Blood Gas VENT - AC Modality FiO2 45.0 Blood Gas Tidal 400.0 Volume Blood Gas Low 5.0 PEEP Setting Blood Gas TM Notified Whom Blood Gas 02/18/2019 11:37: Notified Time 41 AM Bedside Glucose 118 103 111 Test 02/19/19 00:48 02/19/19 04:00 02/19/19 04:47 02/19/19 05:00 Bedside Glucose 135 157 White Blood 12.8 #H Count Red Blood Count 5.34 Hemoglobin 14.4 Hematocrit 46.4 Mean Corpuscular 86.9 Volume Mean Corpuscular 27.0 L Hemoglobin Mean Corpuscular 31.0 L Hemoglobin Xiao nt Red Cell 19.3 H Distribution Width Platelet Count 204 Mean Platelet 9.4 Volume Immature 1.100 H Granulocytes % Neutrophils % 88.1 H Lymphocytes % 2.4 L Monocytes % 8.1 Eosinophils % 0.0 Basophils % 0.3 Nucleated Red 0.0 Blood Cells % Immature 0.140 H Granulocytes # Neutrophils # 11.3 H Lymphocytes # 0.3 L Monocytes # 1.0 H Eosinophils # 0.0 Basophils # 0.0 Nucleated Red 0.0 Blood Cells # Sodium Level 142 Potassium Level 4.3 Chloride Level 102 Carbon Dioxide 33 H Level Anion Gap 7 Blood Urea 34 H Nitrogen Creatinine 0.91 Est Glomerular > 60 Filtrat Rate mL/min Glucose Level 162 Calcium Level 8.9 Phosphorus Level 3.9 Magnesium Level 2.4 Total Bilirubin 0.5 Direct Bilirubin 0.00 Indirect 0.5 Bilirubin Aspartate Amino 41 Transf (AST/SGOT ) Alanine 43 Aminotransferase (ALT/SGPT) Alkaline 42 Phosphatase Total Protein 6.8 Albumin 3.6 Globulin 3.20 Albumin/Globulin 1.12 Ratio Blood Gas Blood arterial Specimen Source Arterial Blood 02/19/2019 5:08: Date Drawn 22 AM Arterial Blood 7.447 pH (Temp corrected) Arterial Blood 47.8 H pCO2 (Temp correct) Arterial Blood 63.7 L pO2 (Temp corrected) Arterial Blood 32.3 H HCO3 Arterial Blood 6.9 H Base Excess Arterial Blood 91.7 L Oxygen Saturatio n Corwin Test N/A Arterial Blood Right Brachial Gas Puncture Site Arterial 0.8 Blood Carboxyhem oglobin Arterial Blood 0.3 Methemoglobin Blood Gas A-a O2 202.8 H Differential Oxyhemoglobin 90.7 L Percent Blood Gas 37.0 Temperature Blood Gas 20.0 Respiration Rate Blood Gas Actual 23 Respiration Rate Blood Gas VENT - AC Modality FiO2 45.0 Blood Gas Tidal 400.0 Volume Blood Gas Low 5.0 PEEP Setting Blood Gas 21.0 Inspiratory Pressure Blood Gas MG Notified Whom Blood Gas 02/19/2019 5:15: Notified Time 18 AM Test 02/19/19 08:22 Bedside Glucose 117 Medications Medication Current Medications IV Flush (NS 3 ml) 3 ml PER PROTOCOL IV ; Start 02/12/19 at 15:30 Ondansetron HCl (Zofran Inj) 4 mg Q6H PRN IV NAUSEA/VOMITING; Start 02/12/19 at 15:30 Acetaminophen (Tylenol Tab) 650 mg Q6H PRN PO .PAIN 1-3 OR TEMP Last administered on 02/17/19at 12:56; Admin Dose 650 MG; Start 02/12/19 at 15:30 Docusate Sodium (Colace) 100 mg Q12H PRN PO .CONSTIPATION; Start 02/12/19 at 15:30 Enoxaparin Sodium (Lovenox) 40 mg DAILY SC Last administered on 02/18/19at 08:17; Admin Dose 40 MG; Start 02/13/19 at 09:00 Vancomycin HCl (Vanco Iv Per Pharmacy) VANCOMYCIN PER PHARMACY PER PROTOCOL XX ; Start 02/12/19 at 15:30 Propofol 100 ml @ 3.027 mls/ hr Q12H IV Last administered on 02/15/19 09:17; Admin Dose 18.162 MLS/HR; Start 02/13/19 at 00:30 Fentanyl 100 ml @ 2.5 mls/hr TITRATE IV Last administered on 02/19/19 06:46; Admin Dose 7.5 MLS/HR; Start 02/13/19 at 12:00 Levothyroxine Sodium (Synthroid) 88 mcg BEFORE BREAKFAST PO Last administered on 02/19/19at 06:40; Admin Dose 88 MCG; Start 02/15/19 at 07:00 Miscellaneous Information 1 ea NOTE XX ; Start 02/14/19 at 10:30 Glucose (Glutose) 15 gm Q15M PRN PO DECREASED GLUCOSE; Start 02/14/19 at 10:30 Glucose (Glutose) 22.5 gm Q15M PRN PO DECREASED GLUCOSE; Start 02/14/19 at 10:30 Dextrose (D50w Syringe) 25 ml Q15M PRN IV DECREASED GLUCOSE; Start 02/14/19 at 10:30 Dextrose (D50w Syringe) 50 ml Q15M PRN IV DECREASED GLUCOSE; Start 02/14/19 at 10:30 Glucagon (Glucagen) 1 mg Q15M PRN IM DECREASED GLUCOSE; Start 02/14/19 at 10:30 Glucose (Glutose) 15 gm Q15M PRN BUCCAL DECREASED GLUCOSE; Start 02/14/19 at 10:30 Albuterol (Ventolin Hfa) 4 puff Q4H RESP THERAPY INH Last administered on 02/19/19 05:23; Admin Dose 4 PUFF; Start 02/14/19 at 21:00 Ipratropium [place] (Atrovent Hfa) 4 puff Q4H RESP THERAPY INH Last administered on 02/19/19 05:23; Admin Dose 4 PUFF; Start 02/14/19 at 21:00 Insulin Aspart (Novolog Insulin Pen) NOVOLOG *MILD* ALGORI... Q4 SC Last admi nistered on 02/19/19 04:53; Admin Dose 1 UNIT; Start 02/15/19 at 05:00 Midazolam HCl 50 ml @ 1 mls/hr TITRATE IV Last administered on 02/19/19 04:21; Admin Dose 6 MLS/HR; Start 02/15/19 at 10:00 Docusate Sodium (Colace Liquid Cup) 100 mg BID NGT Last administered on 02/18/19 21:57; Admin Dose 100 MG; Start 02/15/19 at 11:00 Bisacodyl (Dulcolax Supp) 10 mg DAILY PRN [place] CONSTIPATION Last administered on 02/17/19 17:29; Admin Dose 10 MG; Start 02/15/19 at 11:00 Cefepime HCl 50 ml @ 100 mls/hr Q12 IVPB Last administered on 02/18/19 21:57; Admin Dose 100 MLS/HR; Start 02/16/19 at 21:00 Levofloxacin/ Dextrose 150 ml @ 100 mls/hr Q24H IVPB Last administered on 02/18/19 15:36; Admin Dose 100 MLS/HR; Start 02/16/19 at 15:30 Vancomycin HCl 1.5 gm/Sodium Chloride 250 ml @ 83.333 mls/ hr Q12H IVPB Last administered on 02/19/19 04:48; Admin Dose 83.333 MLS/HR; Start 02/18/19 at 17:00 Famotidine (Pepcid) 20 mg Q12 NGT Last administered on 02/18/19 21:57; Admin Dose 20 MG; Start 02/18/19 at 21:00 Furosemide (Lasix) 20 mg DAILY IV ; Start 02/19/19 at 09:00 Methylprednisolone Sodium Succinate (Solu-Medrol) 40 mg Q12 IV Last administered on 02/18/19 21:57; Admin Dose 40 MG; Start 02/18/19 at 21:00 IV Flush (NS 10 ml) 10 ml PRN PRN IV IV PROTOCOL; Start 02/18/19 at 15:30 WILLA MARQUEZ Feb 19, 2019 08:29
[2019-02-19] MEDS: CEFEPIME 2GM/50 ML (PMX) 50 ML IVPB SCH (08:32)
[2019-02-19] MEDS: DOCUSATE SODIUM 10 MG/ML (10ML CUP) NGT SCH ×2 (08:35→20:38)
--- NOTE | 2019-02-19 10:34 | CONS ---
Assessment/Plan Assessment/Plan Hospital Course (Demo Recall) IMPRESSION: 1. Congestive heart failure-diastolic acute on chronic 2. Lower extremity edema, assess for congestive heart failure.-preserved EF 3. Tachycardia, improved, status post intubation, likely due to respiratory distress. 4. Abnormal electrocardiogram with right axis deviation and T-wave flattening. -neg trop x 3 5. Down syndrome. 6. Hypothyroidism. 7. Diabetes mellitus. 8. Obstructive sleep apnea. Recc: -ICU -Continue lasix diuresis daily and follow volume status closely -Contineu abx's and f/u cx data -Continue steroids and bronchodilators -Wean vent as tolerated Consultation Date/Type/Reason Admit Date/Time Feb 12, 2019 at 12:24 Initial Consult Date 02/12/19 Type of Consult Cardiology Reason for Consultation CHF Requesting Provider: LORNA LYONS MD Date/Time of Note DATE: 02/19/19 TIME: 10:31 Exam/Review of Systems Vital Signs Vitals Vital Signs Date Temp Pulse Resp B/P (MAP) Pulse Ox O2 O2 Flow FiO2 Time Delivery Rate 02/19/19 100.0 10:07 02/19/19 90 23 119/58 95 [place] 09:00 (78) l Ventilato r 02/19/19 65 08:00 Intake and Output 02/18/19 02/18/19 02/19/19 1515:00 23:00 07:00 IntakeIntake Total 610 ml 578.0 ml 818.000 ml OutputOutput Total 1090 ml 340 ml 520 ml BalanceBalance -480 ml 238.0 ml 298.000 ml Exam Exam Review of Systems: CONSTITUTIONAL: No fevers, chills. PULMONARY:intubated CARDIOVASCULAR: No chest pain/palpitations GASTROINTESTINAL: No nausea/vomiting. GENITOURINARY: No hematuria/dysuria. MUSCULOSKELETAL: No myagias/arthalgias. PSYCHIATRIC: The patient denies depression. NEUROLOGIC: No weakness Constitutional: other (sedated) ENMT: intubated Neck: supple, jvd (9 cm water) Respiratory: diminished breath sounds (at bases/B) Cardiovascular: regular rate and rhythm Gastrointestinal: soft, non-tender Musculoskeletal: muscle weakness (mild generalized) Extremities: edema (trace/B) Neurological: other (sedated) Labs Result Diagram: 7/10/19 0400 7/10/19 0400 Results 24hrs Laboratory Tests Test 02/18/19 11:00 02/18/19 13:33 02/18/19 17:01 02/18/19 21:56 Blood Gas Blood arterial Specimen Source Arterial Blood 02/18/2019 11:20: Date Drawn 02 AM Arterial Blood 7.480 H pH (Temp corrected) Arterial Blood 45.0 pCO2 (Temp correct) Arterial Blood 68.4 L pO2 (Temp corrected) Arterial Blood 32.8 H HCO3 Arterial Blood 8.1 H Base Excess Arterial Blood 93.9 L Oxygen Saturatio n Corwin Test ACCEPTAB Arterial Blood Left Radial Gas Puncture Site Arterial 0.7 Blood Carboxyhem oglobin Arterial Blood 0.3 Methemoglobin Blood Gas A-a O2 201.3 H Differential Oxyhemoglobin 93.0 Percent Blood Gas 37.0 Temperature Blood Gas 20.0 Respiration Rate Blood Gas Actual 20 Respiration Rate Blood Gas VENT - AC Modality FiO2 45.0 Blood Gas Tidal 400.0 Volume Blood Gas Low 5.0 PEEP Setting Blood Gas TM Notified Whom Blood Gas 02/18/2019 11:37: Notified Time 41 AM Bedside Glucose 118 103 111 Test 02/19/19 00:48 02/19/19 04:00 02/19/19 04:47 02/19/19 05:00 Bedside Glucose 135 157 White Blood 12.8 #H Count Red Blood Count 5.34 Hemoglobin 14.4 Hematocrit 46.4 Mean Corpuscular 86.9 Volume Mean Corpuscular 27.0 L Hemoglobin Mean Corpuscular 31.0 L Hemoglobin Xiao nt Red Cell 19.3 H Distribution Width Platelet Count 204 Mean Platelet 9.4 Volume Immature 1.100 H Granulocytes % Neutrophils % 88.1 H Lymphocytes % 2.4 L Monocytes % 8.1 Eosinophils % 0.0 Basophils % 0.3 Nucleated Red 0.0 Blood Cells % Immature 0.140 H Granulocytes # Neutrophils # 11.3 H Lymphocytes # 0.3 L Monocytes # 1.0 H Eosinophils # 0.0 Basophils # 0.0 Nucleated Red 0.0 Blood Cells # Sodium Level 142 Potassium Level 4.3 Chloride Level 102 Carbon Dioxide 33 H Level Anion Gap 7 Blood Urea 34 H Nitrogen Creatinine 0.91 Est Glomerular > 60 Filtrat Rate mL/min Glucose Level 162 Calcium Level 8.9 Phosphorus Level 3.9 Magnesium Level 2.4 Total Bilirubin 0.5 Direct Bilirubin 0.00 Indirect 0.5 Bilirubin Aspartate Amino 41 Transf (AST/SGOT ) Alanine 43 Aminotransferase (ALT/SGPT) Alkaline 42 Phosphatase Total Protein 6.8 Albumin 3.6 Globulin 3.20 Albumin/Globulin 1.12 Ratio Blood Gas Blood arterial Specimen Source Arterial Blood 02/19/2019 5:08: Date Drawn 22 AM Arterial Blood 7.447 pH (Temp corrected) Arterial Blood 47.8 H pCO2 (Temp correct) Arterial Blood 63.7 L pO2 (Temp corrected) Arterial Blood 32.3 H HCO3 Arterial Blood 6.9 H Base Excess Arterial Blood 91.7 L Oxygen Saturatio n Corwin Test N/A Arterial Blood Right Brachial Gas Puncture Site Arterial 0.8 Blood Carboxyhem oglobin Arterial Blood 0.3 Methemoglobin Blood Gas A-a O2 202.8 H Differential Oxyhemoglobin 90.7 L Percent Blood Gas 37.0 Temperature Blood Gas 20.0 Respiration Rate Blood Gas Actual 23 Respiration Rate Blood Gas VENT - AC Modality FiO2 45.0 Blood Gas Tidal 400.0 Volume Blood Gas Low 5.0 PEEP Setting Blood Gas 21.0 Inspiratory Pressure Blood Gas MG Notified Whom Blood Gas 02/19/2019 5:15: Notified Time 18 AM Test 02/19/19 08:22 Bedside Glucose 117 Medications Medications Current Medications IV Flush (NS 3 ml) 3 ml PER PROTOCOL IV ; Start 02/12/19 at 15:30 Ondansetron HCl (Zofran Inj) 4 mg Q6H PRN IV NAUSEA/VOMITING; Start 02/12/19 at 15:30 Acetaminophen (Tylenol Tab) 650 mg Q6H PRN PO .PAIN 1-3 OR TEMP Last administered on 02/19/19at 08:24; Admin Dose 650 MG; Start 02/12/19 at 15:30 Docusate Sodium (Colace) 100 mg Q12H PRN PO .CONSTIPATION; Start 02/12/19 at 15:30 Enoxaparin Sodium (Lovenox) 40 mg DAILY SC Last administered on 02/19/19at 08:25; Admin Dose 40 MG; Start 02/13/19 at 09:00 Vancomycin HCl (Vanco Iv Per Pharmacy) VANCOMYCIN PER PHARMACY PER PROTOCOL XX ; Start 02/12/19 at 15:30 Propofol 100 ml @ 3.027 mls/ hr Q12H IV Last administered on 02/15/19at 09:17; Admin Dose 18.162 MLS/HR; Start 02/13/19 at 00:30 Fentanyl 100 ml @ 2.5 mls/hr TITRATE IV Last administered on 02/19/19 06:46; Admin Dose 7.5 MLS/HR; Start 02/13/19 at 12:00 Levothyroxine Sodium (Synthroid) 88 mcg BEFORE BREAKFAST PO Last administered on 02/19/19 06:40; Admin Dose 88 MCG; Start 02/15/19 at 07:00 Miscellaneous Information 1 ea NOTE XX ; Start 02/14/19 at 10:30 Glucose (Glutose) 15 gm Q15M PRN PO DECREASED GLUCOSE; Start 02/14/19 at 10:30 Glucose (Glutose) 22.5 gm Q15M PRN PO DECREASED GLUCOSE; Start 02/14/19 at 10:30 Dextrose (D50w Syringe) 25 ml Q15M PRN IV DECREASED GLUCOSE; Start 02/14/19 at 10:30 Dextrose (D50w Syringe) 50 ml Q15M PRN IV DECREASED GLUCOSE; Start 02/14/19 at 10:30 Glucagon (Glucagen) 1 mg Q15M PRN IM DECREASED GLUCOSE; Start 02/14/19 at 10:30 Glucose (Glutose) 15 gm Q15M PRN BUCCAL DECREASED GLUCOSE; Start 02/14/19 at 10:30 Albuterol (Ventolin Hfa) 4 puff Q4H RESP THERAPY INH Last administered on 02/19/19 08:31; Admin Dose 4 PUFF; Start 02/14/19 at 21:00 Ipratropium [place] (Atrovent Hfa) 4 puff Q4H RESP THERAPY INH Last adminis tered on 02/19/19 08:30; Admin Dose 4 PUFF; Start 02/14/19 at 21:00 Insulin Aspart (Novolog Insulin Pen) NOVOLOG *MILD* ALGORI... Q4 SC Last administered on 02/19/19 04:53; Admin Dose 1 UNIT; Start 02/15/19 at 05:00 Midazolam HCl 50 ml @ 1 mls/hr TITRATE IV Last administered on 02/19/19 08:24; Admin Dose 6 MLS/HR; Start 02/15/19 at 10:00 Docusate Sodium (Colace Liquid Cup) 100 mg BID NGT Last administered on 02/19/19 08:35; Admin Dose 100 MG; Start 02/15/19 at 11:00 Bisacodyl (Dulcolax Supp) 10 mg DAILY PRN [place] CONSTIPATION Last administered on 02/17/19 17:29; Admin Dose 10 MG; Start 02/15/19 at 11:00 Cefepime HCl 50 ml @ 100 mls/hr Q12 IVPB Last administered on 02/19/19 08:32; Admin Dose 100 MLS/HR; Start 02/16/19 at 21:00 Levofloxacin/ Dextrose 150 ml @ 100 mls/hr Q24H IVPB Last administered on 02/18/19 15:36; Admin Dose 100 MLS/HR; Start 02/16/19 at 15:30 Vancomycin HCl 1.5 gm/Sodium Chloride 250 ml @ 83.333 mls/ hr Q12H IVPB Last administered on 02/19/19 04:48; Admin Dose 83.333 MLS/HR; Start 02/18/19 at 17:00 Famotidine (Pepcid) 20 mg Q12 NGT Last administered on 02/19/19 08:23; Admin Dose 20 MG; Start 02/18/19 at 21:00 Furosemide (Lasix) 20 mg DAILY IV Last administered on 02/19/19 08:23; Admin Dose 20 MG; Start 02/19/19 at 09:00 Methylprednisolone Sodium Succinate (Solu-Medrol) 40 mg Q12 IV Last administered on 02/19/19 08:23; Admin Dose 40 MG; Start 02/18/19 at 21:00 IV Flush (NS 10 ml) 10 ml PRN PRN IV IV PROTOCOL; Start 02/18/19 at 15:30 SHARIF TORRES Feb 19, 2019 10:34
--- NOTE | 2019-02-19 11:19 | PN ---
Date/Time of Note Date/Time of Note DATE: 02/19/19 TIME: 11:16 Assessment/Plan VTE Prophylaxis Risk score (from Ns)>0 risk: 2 SCD applied (from Ns): Yes Pharmacological prophylaxis: NA/contraindicated Pharm contraindication: low risk/ambulating Lines/Catheters IV Catheter Type (from Nrsg): PICC Line Central line still needed: Yes Urinary Cath still in place: No Reason Cath still needed: urinary retention Assessment/Plan Assessment/Plan [facility]sp[facility] Course 1. Severe altered mental status likely secondary to metabolic encephalopathy, likely secondary to CO2 narcosis. The patient is also on antidepressants and loxapine at home. Surprisingly on ABG CO2 levels were not high 2. Hypoxic respiratory failure s/p intubation secondary to pneumonia/CHF 3. Lactic acidosis. Respiratory acidosis. 4. Morbid obesity. 5. Down syndrome. 6. Hypertension. 7. Diabetes. 8. History of ventral hernia repair. 9. Leukocytosis secondary to pneumonia 10. Hypothyroidism 11. KIRIT, more likely due to sepsis Assessment/Plan -Spoke to ID , obtain CT of the head and CT of the abdomen and pelvis to check for any source of infection, had history of ventral hernia before status post mesh placement -Continue with IV vancomycin/cefepime/Levaquin - ? Antifungal coverage - cw with Lasix -bl.cul negative SO FAR - fi02 65 -c/w tube feed -Vent management per pulmonary. -cardiology input is appreciated -Sedation per pulmonary Continue with solu Medrol 40 twice daily - ECHO 50-55 %. - GI Famotidine BID -DVT prophylaxis Lovenox Result Diagram: 02/19/19 0400 02/19/19 0400 Results 24hrs Laboratory Tests Test 02/18/19 13:33 02/18/19 17:01 02/18/19 21:56 02/19/19 00:48 Bedside Glucose 118 103 111 135 Test 02/19/19 04:00 02/19/19 04:47 02/19/19 05:00 02/19/19 08:22 White Blood Count 12.8 #H Red Blood Count 5.34 Hemoglobin 14.4 Hematocrit 46.4 Mean Corpuscular 86.9 Volume Mean Corpuscular 27.0 L Hemoglobin Mean Corpuscular 31.0 L Hemoglobin Concen t Red Cell 19.3 H Distribution Width Platelet Count 204 Mean Platelet 9.4 Volume Immature 1.100 H Granulocytes % Neutrophils % 88.1 H Lymphocytes % 2.4 L Monocytes % 8.1 Eosinophils % 0.0 Basophils % 0.3 Nucleated Red 0.0 Blood Cells % Immature 0.140 H Granulocytes # Neutrophils # 11.3 H Lymphocytes # 0.3 L Monocytes # 1.0 H Eosinophils # 0.0 Basophils # 0.0 Nucleated Red 0.0 Blood Cells # Sodium Level 142 Potassium Level 4.3 Chloride Level 102 Carbon Dioxide 33 H Level Anion Gap 7 Blood Urea 34 H Nitrogen Creatinine 0.91 Est Glomerular > 60 Filtrat Rate mL/min Glucose Level 162 Calcium Level 8.9 Phosphorus Level 3.9 Magnesium Level 2.4 Total Bilirubin 0.5 Direct Bilirubin 0.00 Indirect 0.5 Bilirubin Aspartate Amino 41 Transf (AST/SGOT) Alanine 43 Aminotransferase (ALT/SGPT) Alkaline 42 Phosphatase Total Protein 6.8 Albumin 3.6 Globulin 3.20 Albumin/Globulin 1.12 Ratio Bedside Glucose 157 117 Blood Gas Blood arterial Specimen Source Arterial Blood 02/19/2019 5:08:2 Date Drawn 2 AM Arterial Blood pH 7.447 (Temp corrected) Arterial Blood 47.8 H pCO2 (Temp correct) Arterial Blood 63.7 L pO2 (Temp corrected) Arterial Blood 32.3 H HCO3 Arterial Blood 6.9 H Base Excess Arterial Blood 91.7 L Oxygen Saturation Corwin Test N/A Arterial Blood Right Brachial Gas Puncture Site Arterial 0.8 Blood Carboxyhemo globin Arterial Blood 0.3 Methemoglobin Blood Gas A-a O2 202.8 H Differential Oxyhemoglobin 90.7 L Percent Blood Gas 37.0 Temperature Blood Gas 20.0 Respiration Rate Blood Gas Actual 23 Respiration Rate Blood Gas VENT - AC Modality FiO2 45.0 Blood Gas Tidal 400.0 Volume Blood Gas Low 5.0 PEEP Setting Blood Gas 21.0 Inspiratory Pressure Blood Gas MG Notified Whom Blood Gas 02/19/2019 5:15:1 Notified Time 8 AM Subjective 24 Hr Interval Summary Free Text/Dictation Continue to have fevers. On 65% of FiO2 Exam/Review of Systems Exam Vitals Vital Signs Date Temp Pulse Resp B/P (MAP) Pulse Ox O2 O2 Flow FiO2 Time Delivery Rate 02/19/19 100.0 10:07 02/19/19 90 23 119/58 95 [place] 09:00 (78) l Ventilato r 02/19/19 65 08:00 Intake and Output 02/18/19 02/18/19 02/19/19 1515:00 23:00 07:00 IntakeIntake Total 610 ml 578.0 ml 818.000 ml OutputOutput Total 1090 ml 340 ml 520 ml BalanceBalance -480 ml 238.0 ml 298.000 ml Exam orally intubated, sedated , moves exterimities Constitutional: non-verbal Head: normocephalic Neck: supple Respiratory: diminished breath sounds Cardiovascular: regular rate and rhythm Gastrointestinal: soft, distended Results Results 24hrs Laboratory Tests Test 02/18/19 13:33 02/18/19 17:01 02/18/19 21:56 02/19/19 00:48 Bedside Glucose 118 103 111 135 Test 02/19/19 04:00 02/19/19 04:47 02/19/19 05:00 02/19/19 08:22 White Blood Count 12.8 #H Red Blood Count 5.34 Hemoglobin 14.4 Hematocrit 46.4 Mean Corpuscular 86.9 Volume Mean Corpuscular 27.0 L Hemoglobin Mean Corpuscular 31.0 L Hemoglobin Concen t Red Cell 19.3 H Distribution Width Platelet Count 204 Mean Platelet 9.4 Volume Immature 1.100 H Granulocytes % Neutrophils % 88.1 H Lymphocytes % 2.4 L Monocytes % 8.1 Eosinophils % 0.0 Basophils % 0.3 Nucleated Red 0.0 Blood Cells % Immature 0.140 H Granulocytes # Neutrophils # 11.3 H Lymphocytes # 0.3 L Monocytes # 1.0 H Eosinophils # 0.0 Basophils # 0.0 Nucleated Red 0.0 Blood Cells # Sodium Level 142 Potassium Level 4.3 Chloride Level 102 Carbon Dioxide 33 H Level Anion Gap 7 Blood Urea 34 H Nitrogen Creatinine 0.91 Est Glomerular > 60 Filtrat Rate mL/min Glucose Level 162 Calcium Level 8.9 Phosphorus Level 3.9 Magnesium Level 2.4 Total Bilirubin 0.5 Direct Bilirubin 0.00 Indirect 0.5 Bilirubin Aspartate Amino 41 Transf (AST/SGOT) Alanine 43 Aminotransferase (ALT/SGPT) Alkaline 42 Phosphatase Total Protein 6.8 Albumin 3.6 Globulin 3.20 Albumin/Globulin 1.12 Ratio Bedside Glucose 157 117 Blood Gas Blood arterial Specimen Source Arterial Blood 02/19/2019 5:08:2 Date Drawn 2 AM Arterial Blood pH 7.447 (Temp corrected) Arterial Blood 47.8 H pCO2 (Temp correct) Arterial Blood 63.7 L pO2 (Temp corrected) Arterial Blood 32.3 H HCO3 Arterial Blood 6.9 H Base Excess Arterial Blood 91.7 L Oxygen Saturation Corwin Test N/A Arterial Blood Right Brachial Gas Puncture Site Arterial 0.8 Blood Carboxyhemo globin Arterial Blood 0.3 Methemoglobin Blood Gas A-a O2 202.8 H Differential Oxyhemoglobin 90.7 L Percent Blood Gas 37.0 Temperature Blood Gas 20.0 Respiration Rate Blood Gas Actual 23 Respiration Rate Blood Gas VENT - AC Modality FiO2 45.0 Blood Gas Tidal 400.0 Volume Blood Gas Low 5.0 PEEP Setting Blood Gas 21.0 Inspiratory Pressure Blood Gas MG Notified Whom Blood Gas 02/19/2019 5:15:1 Notified Time 8 AM Medications Medication Current Medications IV Flush (NS 3 ml) 3 ml PER PROTOCOL IV ; Start 02/12/19 at 15:30 Ondansetron HCl (Zofran Inj) 4 mg Q6H PRN IV NAUSEA/VOMITING; Start 02/12/19 at 15:30 Acetaminophen (Tylenol Tab) 650 mg Q6H PRN PO .PAIN 1-3 OR TEMP Last administered on 02/19/19 08:24; Admin Dose 650 MG; Start 02/12/19 at 15:30 Docusate Sodium (Colace) 100 mg Q12H PRN PO .CONSTIPATION; Start 02/12/19 at 15:30 Enoxaparin Sodium (Lovenox) 40 mg DAILY SC Last administered on 02/19/19 08:25; Admin Dose 40 MG; Start 02/13/19 at 09:00 Vancomycin HCl (Vanco Iv Per Pharmacy) VANCOMYCIN PER PHARMACY PER PROTOCOL XX ; Start 02/12/19 at 15:30 Propofol 100 ml @ 3.027 mls/ hr Q12H IV Last administered on 02/15/19 09:17; Admin Dose 18.162 MLS/HR; Start 02/13/19 at 00:30 Fentanyl 100 ml @ 2.5 mls/hr TITRATE IV Last administered on 02/19/19 06:46; Admin Dose 7.5 MLS/HR; Start 02/13/19 at 12:00 Levothyroxine Sodium (Synthroid) 88 mcg BEFORE BREAKFAST PO Last administered on 02/19/19 06:40; Admin Dose 88 MCG; Start 02/15/19 at 07:00 Miscellaneous Information 1 ea NOTE XX ; Start 02/14/19 at 10:30 Glucose (Glutose) 15 gm Q15M PRN PO DECREASED GLUCOSE; Start 02/14/19 at 10:30 Glucose (Glutose) 22.5 gm Q15M PRN PO DECREASED GLUCOSE; Start 02/14/19 at 10:30 Dextrose (D50w Syringe) 25 ml Q15M PRN IV DECREASED GLUCOSE; Start 02/14/19 at 10:30 Dextrose (D50w Syringe) 50 ml Q15M PRN IV DECREASED GLUCOSE; Start 02/14/19 at 10:30 Glucagon (Glucagen) 1 mg Q15M PRN IM DECREASED GLUCOSE; Start 02/14/19 at 10:30 Glucose (Glutose) 15 gm Q15M PRN BUCCAL DECREASED GLUCOSE; Start 02/14/19 at 10:30 Albuterol (Ventolin Hfa) 4 puff Q4H RESP THERAPY INH Last administered on 02/19/19 08:31; Admin Dose 4 PUFF; Start 02/14/19 at 21:00 Ipratropium [place] (Atrovent Hfa) 4 puff Q4H RESP THERAPY INH Last administered on 02/19/19 08:30; Admin Dose 4 PUFF; Start 02/14/19 at 21:00 Insulin Aspart (Novolog Insulin Pen) NOVOLOG *MILD* ALGORI... Q4 SC Last administered on 02/19/19 04:53; Admin Dose 1 UNIT; Start 02/15/19 at 05:00 Midazolam HCl 50 ml @ 1 mls/hr TITRATE IV Last administered on 02/19/19 08:24; Admin Dose 6 MLS/HR; Start 02/15/19 at 10:00 Docusate Sodium (Colace Liquid Cup) 100 mg BID NGT Last administered on 02/19/19 08:35; Admin Dose 100 MG; Start 02/15/19 at 11:00 Bisacodyl (Dulcolax Supp) 10 mg DAILY PRN NV CONSTIPATION Last administered on 02/17/19 17:29; Admin Dose 10 MG; Start 02/15/19 at 11:00 Cefepime HCl 50 ml @ 100 mls/hr Q12 IVPB Last administered on 02/19/19 08:32; Admin Dose 100 MLS/HR; Start 02/16/19 at 21:00 Levofloxacin/ Dextrose 150 ml @ 100 mls/hr Q24H IVPB Last administered on 02/18/19at 15:36; Admin Dose 100 MLS/HR; Start 02/16/19 at 15:30 Vancomycin HCl 1.5 gm/Sodium Chloride 250 ml @ 83.333 mls/ hr Q12H IVPB Last administered on 02/19/19 04:48; Admin Dose 83.333 MLS/HR; Start 02/18/19 at 17:00 Famotidine (Pepcid) 20 mg Q12 NGT Last administered on 02/19/19 08:23; Admin Dose 20 MG; Start 02/18/19 at 21:00 Furosemide (Lasix) 20 mg DAILY IV Last administered on 02/19/19 08:23; Admin Dose 20 MG; Start 02/19/19 at 09:00 Methylprednisolone Sodium Succinate (Solu-Medrol) 40 mg Q12 IV Last administered on 02/19/19 08:23; Admin Dose 40 MG; Start 02/18/19 at 21:00 IV Flush (NS 10 ml) 10 ml PRN PRN IV IV PROTOCOL; Start 02/18/19 at 15:30 LORNA LYONS MD Feb 19, 2019 11:19
[2019-02-19] MEDS: PROPOFOL 100 ML IV SCH ×3 (11:39→21:22)
--- NOTE | 2019-02-19 12:29 | CONS ---
Assessment/Plan Assessment/Plan Hospital Course (Demo Recall) No acute events patient is restless started on deep propofol drip also on Versed and fentanyl, continues to spike fevers, T-max 101 this morning WBC 12.8 platelets 204 neutrophils 88.1 BUN 34 creatinine 0.91 Microbiology: Endotracheal aspirate growing staph aureus, blood and urine culture since admission negative CT of the chest yesterday revealed consolidation bilateral lower lobes Indwelling: Endotracheal tube, NG tube, Nelson, PICC line Antimicrobials: Vanco, cefepime, Levaquin Physical examination: Obese well-developed middle-aged woman who is intubated sedated in no distress. Head atraumatic normocephalic neck is obese chest rise symmetrical breath sounds diminished bases. Heart: S1-S2. Abdomen soft bowel sounds present. Extremities without cyanosis Assessment: 1. Sepsis with ongoing fevers likely 2 to #2 2. Bilateral multifocal pneumonia 3. Acute respiratory failure 4. Diabetes 5. Morbid obesity 6. Down syndrome Plan: Change Cefepime to Zosyn, add empiric antifungal coverage, continue vancomycin, continue vent management per pulmonary, plan for CT of the head and abdomen Consultation Date/Type/Reason Admit Date/Time Feb 12, 2019 at 12:24 Initial Consult Date Type of Consult id Requesting Provider: LORNA LYONS MD Date/Time of Note DATE: 02/19/19 TIME: 12:28 Exam/Review of Systems Exam Vitals Vital Signs Date Temp Pulse Resp B/P (MAP) Pulse Ox O2 O2 Flow FiO2 Time Delivery Rate 02/19/19 60 12:00 02/19/19 108 12:00 02/19/19 21 107/53 97 [place] 11:00 (71) l Ventilato r 02/19/19 100.0 10:07 Intake and Output 02/18/19 02/18/19 02/19/19 1515:00 23:00 07:00 IntakeIntake Total 610 ml 578.0 ml 818.000 ml OutputOutput Total 1090 ml 340 ml 520 ml BalanceBalance -480 ml 238.0 ml 298.000 ml Results Result Diagram: 02/19/19 0400 02/19/19 0400 Results 24hrs Laboratory Tests Test 02/18/19 13:33 02/18/19 17:01 02/18/19 21:56 02/19/19 00:48 Bedside Glucose 118 103 111 135 Test 02/19/19 04:00 02/19/19 04:47 02/19/19 05:00 02/19/19 08:22 White Blood Count 12.8 #H Red Blood Count 5.34 Hemoglobin 14.4 Hematocrit 46.4 Mean Corpuscular 86.9 Volume Mean Corpuscular 27.0 L Hemoglobin Mean Corpuscular 31.0 L Hemoglobin Concen t Red Cell 19.3 H Distribution Width Platelet Count 204 Mean Platelet 9.4 Volume Immature 1.100 H Granulocytes % Neutrophils % 88.1 H Lymphocytes % 2.4 L Monocytes % 8.1 Eosinophils % 0.0 Basophils % 0.3 Nucleated Red 0.0 Blood Cells % Immature 0.140 H Granulocytes # Neutrophils # 11.3 H Lymphocytes # 0.3 L Monocytes # 1.0 H Eosinophils # 0.0 Basophils # 0.0 Nucleated Red 0.0 Blood Cells # Sodium Level 142 Potassium Level 4.3 Chloride Level 102 Carbon Dioxide 33 H Level Anion Gap 7 Blood Urea 34 H Nitrogen Creatinine 0.91 Est Glomerular > 60 Filtrat Rate mL/min Glucose Level 162 Calcium Level 8.9 Phosphorus Level 3.9 Magnesium Level 2.4 Total Bilirubin 0.5 Direct Bilirubin 0.00 Indirect 0.5 Bilirubin Aspartate Amino 41 Transf (AST/SGOT) Alanine 43 Aminotransferase (ALT/SGPT) Alkaline 42 Phosphatase Total Protein 6.8 Albumin 3.6 Globulin 3.20 Albumin/Globulin 1.12 Ratio Bedside Glucose 157 117 Blood Gas Blood arterial Specimen Source Arterial Blood 02/19/2019 5:08:2 Date Drawn 2 AM Arterial Blood pH 7.447 (Temp corrected) Arterial Blood 47.8 H pCO2 (Temp correct) Arterial Blood 63.7 L pO2 (Temp corrected) Arterial Blood 32.3 H HCO3 Arterial Blood 6.9 H Base Excess Arterial Blood 91.7 L Oxygen Saturation Corwin Test N/A Arterial Blood Right Brachial Gas Puncture Site Arterial 0.8 Blood Carboxyhemo globin Arterial Blood 0.3 Methemoglobin Blood Gas A-a O2 202.8 H Differential Oxyhemoglobin 90.7 L Percent Blood Gas 37.0 Temperature Blood Gas 20.0 Respiration Rate Blood Gas Actual 23 Respiration Rate Blood Gas VENT - AC Modality FiO2 45.0 Blood Gas Tidal 400.0 Volume Blood Gas Low 5.0 PEEP Setting Blood Gas 21.0 Inspiratory Pressure Blood Gas MG Notified Whom Blood Gas 02/19/2019 5:15:1 Notified Time 8 AM Medications Medication Current Medications IV Flush (NS 3 ml) 3 ml PER PROTOCOL IV ; Start 02/12/19 at 15:30 Ondansetron HCl (Zofran Inj) 4 mg Q6H PRN IV NAUSEA/VOMITING; Start 02/12/19 at 15:30 Acetaminophen (Tylenol Tab) 650 mg Q6H PRN PO .PAIN 1-3 OR TEMP Last administered on 02/19/19at 08:24; Admin Dose 650 MG; Start 02/12/19 at 15:30 Docusate Sodium (Colace) 100 mg Q12H PRN PO .CONSTIPATION; Start 02/12/19 at 15:30 Enoxaparin Sodium (Lovenox) 40 mg DAILY SC Last administered on 02/19/19 08:25; Admin Dose 40 MG; Start 02/13/19 at 09:00 Vancomycin HCl (Vanco Iv Per Pharmacy) VANCOMYCIN PER PHARMACY PER PROTOCOL XX ; Start 02/12/19 at 15:30 Propofol 100 ml @ 3.027 mls/ hr Q12H IV Last administered on 02/19/19at 12:11; Admin Dose 3.027 MLS/HR; Start 02/13/19 at 00:30 Fentanyl 100 ml @ 2.5 mls/hr TITRATE IV Last administered on 02/19/19at 06:46; Admin Dose 7.5 MLS/HR; Start 02/13/19 at 12:00 Levothyroxine Sodium (Synthroid) 88 mcg BEFORE BREAKFAST PO Last administered on 02/19/19at 06:40; Admin Dose 88 MCG; Start 02/15/19 at 07:00 Miscellaneous Information 1 ea NOTE XX ; Start 02/14/19 at 10:30 Glucose (Glutose) 15 gm Q15M PRN PO DECREASED GLUCOSE; Start 02/14/19 at 10:30 Glucose (Glutose) 22.5 gm Q15M PRN PO DECREASED GLUCOSE; Start 02/14/19 at 10:30 Dextrose (D50w Syringe) 25 ml Q15M PRN IV DECREASED GLUCOSE; Start 02/14/19 at 10:30 Dextrose (D50w Syringe) 50 ml Q15M PRN IV DECREASED GLUCOSE; Start 02/14/19 at 10:30 Glucagon (Glucagen) 1 mg Q15M PRN IM DECREASED GLUCOSE; Start 02/14/19 at 10:30 Glucose (Glutose) 15 gm Q15M PRN BUCCAL DECREASED GLUCOSE; Start 02/14/19 at 10:30 Albuterol (Ventolin Hfa) 4 puff Q4H RESP THERAPY INH Last administered on 02/19/19 08:31; Admin Dose 4 PUFF; Start 02/14/19 at 21:00 Ipratropium [place] (Atrovent Hfa) 4 puff Q4H RESP THERAPY INH Last administered on 02/19/19 08:30; Admin Dose 4 PUFF; Start 02/14/19 at 21:00 Insulin Aspart (Novolog Insulin Pen) NOVOLOG *MILD* ALGORI... Q4 SC Last administered on 02/19/19 04:53; Admin Dose 1 UNIT; Start 02/15/19 at 05:00 Midazolam HCl 50 ml @ 1 mls/hr TITRATE IV Last administered on 02/19/19 08:24; Admin Dose 6 MLS/HR; Start 02/15/19 at 10:00 Docusate Sodium (Colace Liquid Cup) 100 mg BID NGT Last administered on 02/19/19 08:35; Admin Dose 100 MG; Start 02/15/19 at 11:00 Bisacodyl (Dulcolax Supp) 10 mg DAILY PRN OR CONSTIPATION Last administered on 02/17/19 17:29; Admin Dose 10 MG; Start 02/15/19 at 11:00 Cefepime HCl 50 ml @ 100 mls/hr Q12 IVPB Last administered on 02/19/19 08:32; Admin Dose 100 MLS/HR; Start 02/16/19 at 21:00 Levofloxacin/ Dextrose 150 ml @ 100 mls/hr Q24H IVPB Last administered on 02/18/19 15:36; Admin Dose 100 MLS/HR; Start 02/16/19 at 15:30 Vancomycin HCl 1.5 gm/Sodium Chloride 250 ml @ 83.333 mls/ hr Q12H IVPB Last administered on 02/19/19 04:48; Admin Dose 83.333 MLS/HR; Start 02/18/19 at 17:00 Famotidine (Pepcid) 20 mg Q12 NGT Last administered on 02/19/19 08:23; Admin Dose 20 MG; Start 02/18/19 at 21:00 Furosemide (Lasix) 20 mg DAILY IV Last administered on 02/19/19at 08:23; Admin Dose 20 MG; Start 02/19/19 at 09:00 Methylprednisolone Sodium Succinate (Solu-Medrol) 40 mg Q12 IV Last administered on 02/19/19at 08:23; Admin Dose 40 MG; Start 02/18/19 at 21:00 IV Flush (NS 10 ml) 10 ml PRN PRN IV IV PROTOCOL; Start 02/18/19 at 15:30 RUDOLPH YOON NP Feb 19, 2019 12:29
[2019-02-19] MEDS: FLUCONAZOLE 100 MG TAB PO SCH (12:30)
[2019-02-19] MEDS: LEVOFLOXACIN 750MG/D5W (PMX) 150 ML IVPB SCH (15:20)
[2019-02-19] MEDS: PIPER-TAZO 3.375 GM IV (PMX) 100 ML IVPB SCH ×2 (17:10→23:32)
[2019-02-19] MEDS ORDERED: IOHEXOL 300MG/ML 150 ML BTL ONE (21:43)
[2019-02-19] MEDS ORDERED: SOD CHLORIDE 0.9% 100 ML ONE (21:43)
[2019-02-20] VITALS (61 sets, daily range): BP systolic 84–119; BP diastolic 46–75; PULSE 72–106; RESP 19–30
[2019-02-20] MEDS: INSULIN ASPART [NOVOLOG] 3 ML PEN SC SCH ×6 (00:49→21:00)
[2019-02-20] MEDS: IPRATROPIUM (HFA) 12.9 GM INHALER INH SCH ×5 (01:21→20:08)
[2019-02-20] MEDS: ALBUTEROL HFA 8 GM INHALER INH SCH ×5 (01:21→20:05)
[2019-02-20] MEDS: LEVOTHYROXINE 88 MCG TAB PO SCH (06:05)
[2019-02-20] MEDS: PIPER-TAZO 3.375 GM IV (PMX) 100 ML IVPB SCH ×4 (06:05→23:19)
[2019-02-20] MEDS: VANCOMYCIN HCL 1.5 GM in SOD CHLORIDE 0.9% 250 ML IVPB SCH (06:22)
[2019-02-20] MEDS: PROPOFOL 100 ML IV SCH ×2 (08:16→18:47)
--- NOTE | 2019-02-20 08:43 | CONS ---
Assessment/Plan Assessment/Plan Assessment/Plan (Daily) Patient is currently on Versed 5 mg/h, propofol 16 mics per kilogram per minute. Chest x-ray is pending from this morning. Ventilator setting; assist control of 20, tidal volume 400, PEEP of 5, 40% FiO2. O2 saturation is 100%. Assessment and recommendations; 1. Patient admitted with severe bilateral pneumonia with component of CHF with significant improvement in hypoxemia over the last 24 hours. Currently on appropriate empirical broad-spectrum antibiotic coverage. 2. Down syndrome. 3. History of hypothyroidism. Continue current supportive care. Further recommendations once chest x-ray is obtained. If there is significant radiological improvement, patient will be given weaning trial off sedation. I did have a detailed discussion with patient's mother at bedside answered all her questions. 35 minutes of critical care time was spent evaluating the patient. Consultation Date/Type/Reason Admit Date/Time Feb 12, 2019 at 12:24 Initial Consult Date Type of Consult Pulmonary/critical care Patient's condition remains critical. Still on fairly high FiO2. Patient however has remained hemodynamically stable. Patient does become agitated off sedation. General exam; young female, morbidly obese, orally intubated and sedated. Currently in no distress. Requesting Provider: LORNA LYONS MD Date/Time of Note DATE: 02/20/19 TIME: 08:41 24 HR Interval Summary Free Text/Dictation Patient's condition is critical. However there has been marked improvement in hypoxemia. General exam; young female, morbidly obese. Orally intubated and sedated. Currently no distress. Exam/Review of Systems Exam Vitals Vital Signs Date Temp Pulse Resp B/P (MAP) Pulse Ox O2 O2 Flow FiO2 Time Delivery Rate 02/20/19 100.1 81 23 109/73 98 [place] 06:00 (85) l Ventilato r 02/20/19 50 04:58 Intake and Output 02/19/19 02/19/19 02/20/19 1515:00 23:00 07:00 IntakeIntake Total 563.5 ml 817.3 ml 728.2 ml OutputOutput Total 900 ml 470 ml 345 ml BalanceBalance -336.5 ml 347.3 ml 383.2 ml Exam H EENT exam; supple neck, JVD difficult to see because of short neck. Patient has fair dentition. No neck masses. Orally intubated. Pupils are small bilaterally. Nasogastric tube in place. Chest exam; diminished but clear breath sounds. S1-S2 audible, no murmurs. Regular rhythm. Abdomen exam; soft, protuberant. No organomegaly. Bowel sounds are audible. Extremity exam; no peripheral edema. [employer] exam; patient is sedated. Results Result Diagram: 02/20/19 0410 02/20/19 0408 Results 24hrs Laboratory Tests Test 02/19/19 14:00 02/19/19 17:12 02/19/19 20:37 02/20/19 00:44 Bedside Glucose 152 137 121 153 Test 02/20/19 04:08 02/20/19 04:10 02/20/19 06:10 Sodium Level 143 Potassium Level 4.4 Chloride Level 104 Carbon Dioxide Level 30 Anion Gap 9 Blood Urea Nitrogen 29 H Creatinine 0.79 Est Glomerular > 60 Filtrat Rate mL/min Glucose Level 167 Calcium Level 8.6 Phosphorus Level 4.1 Magnesium Level 2.5 Total Bilirubin 0.4 Direct Bilirubin 0.00 Indirect Bilirubin 0.4 Aspartate Amino 26 Transf (AST/SGOT) Alanine 35 Aminotransferase (AL T/SGPT) Alkaline Phosphatase 38 L Total Protein 6.6 Albumin 3.3 Globulin 3.30 H Albumin/Globulin 1.00 Ratio Vancomycin Level 9.9 L Trough White Blood Count 13.6 H Red Blood Count 5.09 Hemoglobin 13.6 Hematocrit 44.4 Mean Corpuscular 87.2 Volume Mean Corpuscular 26.7 L Hemoglobin Mean Corpuscular 30.6 L Hemoglobin Concent Red Cell 19.3 H Distribution Width Platelet Count 189 Mean Platelet Volume 9.7 Immature 1.200 H Granulocytes % Neutrophils % 87.1 H Lymphocytes % 3.1 L Monocytes % 8.3 Eosinophils % 0.0 Basophils % 0.3 Nucleated Red Blood 0.0 Cells % Immature 0.160 H Granulocytes # Neutrophils # 11.9 H Lymphocytes # 0.4 L Monocytes # 1.1 H Eosinophils # 0.0 Basophils # 0.0 Nucleated Red Blood 0.0 Cells # Bedside Glucose 141 Medications Medication Current Medications IV Flush (NS 3 ml) 3 ml PER PROTOCOL IV ; Start 02/12/19 at 15:30 Ondansetron HCl (Zofran Inj) 4 mg Q6H PRN IV NAUSEA/VOMITING; Start 02/12/19 at 15:30 Acetaminophen (Tylenol Tab) 650 mg Q6H PRN PO .PAIN 1-3 OR TEMP Last administered on 02/19/19at 23:33; Admin Dose 650 MG; Start 02/12/19 at 15:30 Docusate Sodium (Colace) 100 mg Q12H PRN PO .CONSTIPATION; Start 02/12/19 at 15:30 Enoxaparin Sodium (Lovenox) 40 mg DAILY SC Last administered on 02/19/19at 08:25; Admin Dose 40 MG; Start 02/13/19 at 09:00 Vancomycin HCl (Vanco Iv Per Pharmacy) VANCOMYCIN PER PHARMACY PER PROTOCOL XX ; Start 02/12/19 at 15:30 Propofol 100 ml @ 3.027 mls/ hr Q12H IV Last administered on 02/20/19at 08:16; Admin Dose 9.686 MLS/HR; Start 02/13/19 at 00:30 Fentanyl 100 ml @ 2.5 mls/hr TITRATE IV Last administered on 02/19/19at 06:46; Admin Dose 7.5 MLS/HR; Start 02/13/19 at 12:00 Levothyroxine Sodium (Synthroid) 88 mcg BEFORE BREAKFAST PO Last administered on 02/20/19at 06:05; Admin Dose 88 MCG; Start 02/15/19 at 07:00 Miscellaneous Information 1 ea NOTE XX ; Start 02/14/19 at 10:30 Glucose (Glutose) 15 gm Q15M PRN PO DECREASED GLUCOSE; Start 02/14/19 at 10:30 Glucose (Glutose) 22.5 gm Q15M PRN PO DECREASED GLUCOSE; Start 02/14/19 at 10:30 Dextrose (D50w Syringe) 25 ml Q15M PRN IV DECREASED GLUCOSE; Start 02/14/19 at 10:30 Dextrose (D50w Syringe) 50 ml Q15M PRN IV DECREASED GLUCOSE; Start 02/14/19 at 10:30 Glucagon (Glucagen) 1 mg Q15M PRN IM DECREASED GLUCOSE; Start 02/14/19 at 10:30 Glucose (Glutose) 15 gm Q15M PRN BUCCAL DECREASED GLUCOSE; Start 02/14/19 at 10:30 Albuterol (Ventolin Hfa) 4 puff Q4H RESP THERAPY INH Last administered on 02/20/19at 04:58; Admin Dose 4 PUFF; Start 02/14/19 at 21:00 Ipratropium [place] (Atrovent Hfa) 4 puff Q4H RESP THERAPY INH Last administered on 02/20/19 04:58; Admin Dose 4 PUFF; Start 02/14/19 at 21:00 Insulin Aspart (Novolog Insulin Pen) NOVOLOG *MILD* ALGORI... Q4 SC Last administered on 02/20/19 06:12; Admin Dose 1 UNIT; Start 02/15/19 at 05:00 Midazolam HCl 50 ml @ 1 mls/hr TITRATE IV Last administered on 02/19/19 21:22; Admin Dose 8 MLS/HR; Start 02/15/19 at 10:00 Docusate Sodium (Colace Liquid Cup) 100 mg BID NGT Last administered on 02/19/19 20:38; Admin Dose 100 MG; Start 02/15/19 at 11:00 Bisacodyl (Dulcolax Supp) 10 mg DAILY PRN [place] CONSTIPATION Last administered on 02/17/19 17:29; Admin Dose 10 MG; Start 02/15/19 at 11:00 Levofloxacin/ Dextrose 150 ml @ 100 mls/hr Q24H IVPB Last administered on 02/19/19 15:20; Admin Dose 100 MLS/HR; Start 02/16/19 at 15:30 Vancomycin HCl 1.5 gm/Sodium Chloride 250 ml @ 83.333 mls/ hr Q12H IVPB Last administered on 02/20/19 06:22; Admin Dose 83.333 MLS/HR; Start 02/18/19 at 17:00; Stop 02/20/19 at 09:00 Famotidine (Pepcid) 20 mg Q12 NGT Last administered on 02/19/19 20:38; Admin Dose 20 MG; Start 02/18/19 at 21:00 Furosemide (Lasix) 20 mg DAILY IV Last administered on 02/19/19 08:23; Admin Dose 20 MG; Start 02/19/19 at 09:00 Methylprednisolone Sodium Succinate (Solu-Medrol) 40 mg Q12 IV Last administered on 02/19/19 20:38; Admin Dose 40 MG; Start 02/18/19 at 21:00 IV Flush (NS 10 ml) 10 ml PRN PRN IV IV PROTOCOL; Start 02/18/19 at 15:30 Piperacillin Sod/ Tazobactam Sod 100 ml @ 200 mls/hr Q6 IVPB Last administered on 02/20/19at 06:05; Admin Dose 200 MLS/HR; Start 02/19/19 at 18:00 Fluconazole (Diflucan) 100 mg DAILY PO Last administered on 02/19/19at 12:30; Admin Dose 100 MG; Start 02/19/19 at 12:30 Vancomycin HCl 1.75 gm/Sodium Chloride 500 ml @ 125 mls/hr Q12H IVPB ; Start 02/20/19 at 17:00 Miscellaneous Information (*Rx Drug Level Order Reminder*) VANCOMYCIN TROUGH LEVEL 0400 ONCE XX ; Start 02/22/19 at 04:00; Stop 02/22/19 at 04:01 WILLA MARQUEZ Feb 20, 2019 08:43
[2019-02-20] MEDS: FLUCONAZOLE 100 MG TAB PO SCH (09:51)
[2019-02-20] MEDS: METHYLPREDNISOLONE 40 MG INJ IV SCH ×2 (09:51→21:16)
[2019-02-20] MEDS: FUROSEMIDE 20 MG INJ IV SCH (09:51)
[2019-02-20] MEDS: DOCUSATE SODIUM 10 MG/ML (10ML CUP) NGT SCH ×2 (09:51→21:16)
[2019-02-20] MEDS: FAMOTIDINE 20 MG TAB NGT SCH ×2 (09:51→21:16)
[2019-02-20] MEDS: ENOXAPARIN 40 MG/0.4 ML SYG SC SCH (09:52)
[2019-02-20] MEDS: MIDAZOLAM (DRIP) 50 mg/50 mL 50 ML IV SCH ×2 (10:52→18:28)
--- NOTE | 2019-02-20 11:29 | CONS ---
Assessment/Plan Assessment/Plan Hospital Course (Demo Recall) IMPRESSION: 1. Congestive heart failure-diastolic acute on chronic 2. Lower extremity edema, assess for congestive heart failure.-preserved EF 3. Tachycardia, improved, status post intubation, likely due to respiratory distress. 4. Abnormal electrocardiogram with right axis deviation and T-wave flattening. -neg trop x 3 5. Down syndrome. 6. Hypothyroidism. 7. Diabetes mellitus. 8. Obstructive sleep apnea. 9. hypotension-borderline and labile currently improved and stable Recc: -ICU -Continue lasix diuresis daily and follow volume status closely -Contineu abx's and f/u cx data -Continue steroids and bronchodilators -Wean vent as tolerated Consultation Date/Type/Reason Admit Date/Time Feb 12, 2019 at 12:24 Initial Consult Date 02/12/19 Type of Consult Cardiology Reason for Consultation chest pain Requesting Provider: LORNA LYONS MD Date/Time of Note DATE: 02/20/19 TIME: 11:26 Exam/Review of Systems Vital Signs Vitals Vital Signs Date Temp Pulse Resp B/P (MAP) Pulse Ox O2 O2 Flow FiO2 Time Delivery Rate 02/20/19 87 24 106/63 100 Mechanical 11:00 (77) Ventilator 02/20/19 99.1 08:00 02/20/19 50 04:58 Intake and Output 02/19/19 02/19/19 02/20/19 1515:00 23:00 07:00 IntakeIntake Total 563.5 ml 817.3 ml 728.2 ml OutputOutput Total 900 ml 470 ml 345 ml BalanceBalance -336.5 ml 347.3 ml 383.2 ml Exam Exam Review of Systems: CONSTITUTIONAL: No fevers, chills. PULMONARY: intubated CARDIOVASCULAR: No chest pain/palpitations GASTROINTESTINAL: No nausea/vomiting. GENITOURINARY: No hematuria/dysuria. MUSCULOSKELETAL: No myagias/arthalgias. PSYCHIATRIC: The patient denies depression. NEUROLOGIC: sedated Constitutional: other (sedated) Psych: no complaints Head: normocephalic ENMT: mucosa pink and moist Neck: supple, jvd (9 cm water) Respiratory: diminished breath sounds (at bases/B) Cardiovascular: regular rate and rhythm Gastrointestinal: soft, non-tender Musculoskeletal: muscle tone (normal) Extremities: edema (none) Neurological: other (No focal deficits) Labs Result Diagram: 02/20/19 0410 02/20/19 0408 Results 24hrs Laboratory Tests Test 02/19/19 14:00 02/19/19 17:12 02/19/19 20:37 02/20/19 00:44 Bedside Glucose 152 137 121 153 Test 02/20/19 04:08 02/20/19 04:10 02/20/19 06:10 02/20/19 10:07 Sodium Level 143 Potassium Level 4.4 Chloride Level 104 Carbon Dioxide Level 30 Anion Gap 9 Blood Urea Nitrogen 29 H Creatinine 0.79 Est Glomerular > 60 Filtrat Rate mL/min Glucose Level 167 Calcium Level 8.6 Phosphorus Level 4.1 Magnesium Level 2.5 Total Bilirubin 0.4 Direct Bilirubin 0.00 Indirect Bilirubin 0.4 Aspartate Amino 26 Transf (AST/SGOT) Alanine 35 Aminotransferase (AL T/SGPT) Alkaline Phosphatase 38 L Total Protein 6.6 Albumin 3.3 Globulin 3.30 H Albumin/Globulin 1.00 Ratio Vancomycin Level 9.9 L Trough White Blood Count 13.6 H Red Blood Count 5.09 Hemoglobin 13.6 Hematocrit 44.4 Mean Corpuscular 87.2 Volume Mean Corpuscular 26.7 L Hemoglobin Mean Corpuscular 30.6 L Hemoglobin Concent Red Cell 19.3 H Distribution Width Platelet Count 189 Mean Platelet Volume 9.7 Immature 1.200 H Granulocytes % Neutrophils % 87.1 H Lymphocytes % 3.1 L Monocytes % 8.3 Eosinophils % 0.0 Basophils % 0.3 Nucleated Red Blood 0.0 Cells % Immature 0.160 H Granulocytes # Neutrophils # 11.9 H Lymphocytes # 0.4 L Monocytes # 1.1 H Eosinophils # 0.0 Basophils # 0.0 Nucleated Red Blood 0.0 Cells # Bedside Glucose 141 146 Medications Medications Current Medications IV Flush (NS 3 ml) 3 ml PER PROTOCOL IV ; Start 02/12/19 at 15:30 Ondansetron HCl (Zofran Inj) 4 mg Q6H PRN IV NAUSEA/VOMITING; Start 02/12/19 at 15:30 Acetaminophen (Tylenol Tab) 650 mg Q6H PRN PO .PAIN 1-3 OR TEMP Last administered on 02/19/19at 23:33; Admin Dose 650 MG; Start 02/12/19 at 15:30 Docusate Sodium (Colace) 100 mg Q12H PRN PO .CONSTIPATION; Start 02/12/19 at 15:30 Enoxaparin Sodium (Lovenox) 40 mg DAILY SC Last administered on 02/20/19at 09:52; Admin Dose 40 MG; Start 02/13/19 at 09:00 Vancomycin HCl (Vanco Iv Per Pharmacy) VANCOMYCIN PER PHARMACY PER PROTOCOL XX ; Start 02/12/19 at 15:30 Propofol 100 ml @ 3.027 mls/ hr Q12H IV Last administered on 02/20/19at 08:16; Admin Dose 9.686 MLS/HR; Start 02/13/19 at 00:30 Fentanyl 100 ml @ 2.5 mls/hr TITRATE IV Last administered on 02/19/19at 06:46; Admin Dose 7.5 MLS/HR; Start 02/13/19 at 12:00 Levothyroxine Sodium (Synthroid) 88 mcg BEFORE BREAKFAST PO Last administered on 02/20/19at 06:05; Admin Dose 88 MCG; Start 02/15/19 at 07:00 Miscellaneous Information 1 ea NOTE XX ; Start 02/14/19 at 10:30 Glucose (Glutose) 15 gm Q15M PRN PO DECREASED GLUCOSE; Start 02/14/19 at 10:30 Glucose (Glutose) 22.5 gm Q15M PRN PO DECREASED GLUCOSE; Start 02/14/19 at 10:30 Dextrose (D50w Syringe) 25 ml Q15M PRN IV DECREASED GLUCOSE; Start 02/14/19 at 10:30 Dextrose (D50w Syringe) 50 ml Q15M PRN IV DECREASED GLUCOSE; Start 02/14/19 at 10:30 Glucagon (Glucagen) 1 mg Q15M PRN IM DECREASED GLUCOSE; Start 02/14/19 at 10:30 Glucose (Glutose) 15 gm Q15M PRN BUCCAL DECREASED GLUCOSE; Start 02/14/19 at 10:30 Albuterol (Ventolin Hfa) 4 puff Q4H RESP THERAPY INH Last administered on 02/20/19at 09:30; Admin Dose 4 PUFF; Start 02/14/19 at 21:00 Ipratropium [place] (Atrovent Hfa) 4 puff Q4H RESP THERAPY INH Last administered on 02/20/19at 09:29; Admin Dose 4 PUFF; Start 02/14/19 at 21:00 Insulin Aspart (Novolog Insulin Pen) NOVOLOG *MILD* ALGORI... Q4 SC Last administered on 02/20/19 10:11; Admin Dose 1 UNIT; Start 02/15/19 at 05:00 Midazolam HCl 50 ml @ 1 mls/hr TITRATE IV Last administered on 02/20/19 10:52; Admin Dose 5 MLS/HR; Start 02/15/19 at 10:00 Docusate Sodium (Colace Liquid Cup) 100 mg BID NGT Last administered on 02/20/19 09:51; Admin Dose 100 MG; Start 02/15/19 at 11:00 Bisacodyl (Dulcolax Supp) 10 mg DAILY PRN [place] CONSTIPATION Last administered on 02/17/19 17:29; Admin Dose 10 MG; Start 02/15/19 at 11:00 Levofloxacin/ Dextrose 150 ml @ 100 mls/hr Q24H IVPB Last administered on 02/19/19 15:20; Admin Dose 100 MLS/HR; Start 02/16/19 at 15:30 Famotidine (Pepcid) 20 mg Q12 NGT Last administered on 02/20/19 09:51; Admin D ose 20 MG; Start 02/18/19 at 21:00 Furosemide (Lasix) 20 mg DAILY IV Last administered on 02/20/19 09:51; Admin Dose 20 MG; Start 02/19/19 at 09:00 Methylprednisolone Sodium Succinate (Solu-Medrol) 40 mg Q12 IV Last administered on 02/20/19 09:51; Admin Dose 40 MG; Start 02/18/19 at 21:00 IV Flush (NS 10 ml) 10 ml PRN PRN IV IV PROTOCOL; Start 02/18/19 at 15:30 Piperacillin Sod/ Tazobactam Sod 100 ml @ 200 mls/hr Q6 IVPB Last administered on 02/20/19 06:05; Admin Dose 200 MLS/HR; Start 02/19/19 at 18:00 Fluconazole (Diflucan) 100 mg DAILY PO Last administered on 02/20/19 09:51; Admin Dose 100 MG; Start 02/19/19 at 12:30 Vancomycin HCl 1.75 gm/Sodium Chloride 500 ml @ 125 mls/hr Q12H IVPB ; Start 02/20/19 at 17:00 Miscellaneous Information (*Rx Drug Level Order Reminder*) VANCOMYCIN TROUGH LEVEL 0400 ONCE XX ; Start 02/22/19 at 04:00; Stop 02/22/19 at 04:01 SHARIF TORRES Feb 20, 2019 11:29
--- NOTE | 2019-02-20 13:47 | CONS ---
Assessment/Plan Assessment/Plan Hospital Course (Demo Recall) No acute events overnight patient is laying comfortably in bed she is intubated sedated, T-max last night 102.5 T-current 98.6. WBC 13.6 platelets 189 neutrophils 87.1 BUN 29 creatinine 0.79 Chest x-ray this morning revealed no significant interval change Indwelling: Endotracheal tube, NG tube, PICC line, [place] Antimicrobials: Zosyn fluconazole vancomycin Levaquin Microbiology: Endotracheal aspirate growing staph aureus, blood and urine culture since admission negative Physical examination: Obese well-developed middle-aged woman who is intubated sedated in no distress. Head atraumatic normocephalic neck is obese short, chest rise symmetrical breath sounds diminished bases. Heart: S1-S2. Abdomen soft bowel sounds present. Extremities without cyanosis Assessment: 1. Sepsis with ongoing fevers likely 2 to #2 2. Bilateral multifocal pneumonia 3. Acute respiratory failure 4. Diabetes 5. Morbid obesity 6. Down syndrome Plan: Remains unchanged, continue antibiotics, vent management per pulmonary, plan for CT of the head and abdomen when she is able to tolerate Consultation Date/Type/Reason Admit Date/Time Feb 12, 2019 at 12:24 Initial Consult Date Type of Consult id Requesting Provider: LORNA LYONS MD Date/Time of Note DATE: 02/20/19 TIME: 13:46 Exam/Review of Systems Exam Vitals Vital Signs Date Temp Pulse Resp B/P (MAP) Pulse Ox O2 O2 Flow FiO2 Time Delivery Rate 02/20/19 89 12:00 02/20/19 40 12:00 02/20/19 98.6 24 113/74 Mechanical 12:00 (87) Ventilator 02/20/19 100 11:30 Intake and Output 02/19/19 02/19/19 02/20/19 1515:00 23:00 07:00 IntakeIntake Total 563.5 ml 817.3 ml 778.2 ml OutputOutput Total 900 ml 470 ml 445 ml BalanceBalance -336.5 ml 347.3 ml 333.2 ml Results Result Diagram: 02/20/19 0410 02/20/19 0408 Results 24hrs Laboratory Tests Test 02/19/19 14:00 02/19/19 17:12 02/19/19 20:37 02/20/19 00:44 Bedside Glucose 152 137 121 153 Test 02/20/19 04:08 02/20/19 04:10 02/20/19 06:10 02/20/19 10:07 Sodium Level 143 Potassium Level 4.4 Chloride Level 104 Carbon Dioxide Level 30 Anion Gap 9 Blood Urea Nitrogen 29 H Creatinine 0.79 Est Glomerular > 60 Filtrat Rate mL/min Glucose Level 167 Calcium Level 8.6 Phosphorus Level 4.1 Magnesium Level 2.5 Total Bilirubin 0.4 Direct Bilirubin 0.00 Indirect Bilirubin 0.4 Aspartate Amino 26 Transf (AST/SGOT) Alanine 35 Aminotransferase (AL T/SGPT) Alkaline Phosphatase 38 L Total Protein 6.6 Albumin 3.3 Globulin 3.30 H Albumin/Globulin 1.00 Ratio Vancomycin Level 9.9 L Trough White Blood Count 13.6 H Red Blood Count 5.09 Hemoglobin 13.6 Hematocrit 44.4 Mean Corpuscular 87.2 Volume Mean Corpuscular 26.7 L Hemoglobin Mean Corpuscular 30.6 L Hemoglobin Concent Red Cell 19.3 H Distribution Width Platelet Count 189 Mean Platelet Volume 9.7 Immature 1.200 H Granulocytes % Neutrophils % 87.1 H Lymphocytes % 3.1 L Monocytes % 8.3 Eosinophils % 0.0 Basophils % 0.3 Nucleated Red Blood 0.0 Cells % Immature 0.160 H Granulocytes # Neutrophils # 11.9 H Lymphocytes # 0.4 L Monocytes # 1.1 H Eosinophils # 0.0 Basophils # 0.0 Nucleated Red Blood 0.0 Cells # Bedside Glucose 141 146 Test 02/20/19 12:56 Bedside Glucose 130 Medications Medication Current Medications IV Flush (NS 3 ml) 3 ml PER PROTOCOL IV ; Start 02/12/19 at 15:30 Ondansetron HCl (Zofran Inj) 4 mg Q6H PRN IV NAUSEA/VOMITING; Start 02/12/19 at 15:30 Acetaminophen (Tylenol Tab) 650 mg Q6H PRN PO .PAIN 1-3 OR TEMP Last administered on 02/19/19at 23:33; Admin Dose 650 MG; Start 02/12/19 at 15:30 Docusate Sodium (Colace) 100 mg Q12H PRN PO .CONSTIPATION; Start 02/12/19 at 15:30 Enoxaparin Sodium (Lovenox) 40 mg DAILY SC Last administered on 02/20/19at 09:52; Admin Dose 40 MG; Start 02/13/19 at 09:00 Vancomycin HCl (Vanco Iv Per Pharmacy) VANCOMYCIN PER PHARMACY PER PROTOCOL XX ; Start 02/12/19 at 15:30 Propofol 100 ml @ 3.027 mls/ hr Q12H IV Last administered on 02/20/19at 08:16; Admin Dose 9.686 MLS/HR; Start 02/13/19 at 00:30 Fentanyl 100 ml @ 2.5 mls/hr TITRATE IV Last administered on 02/19/19at 06:46; Admin Dose 7.5 MLS/HR; Start 02/13/19 at 12:00 Levothyroxine Sodium (Synthroid) 88 mcg BEFORE BREAKFAST PO Last administered on 02/20/19 06:05; Admin Dose 88 MCG; Start 02/15/19 at 07:00 Miscellaneous Information 1 ea NOTE XX ; Start 02/14/19 at 10:30 Glucose (Glutose) 15 gm Q15M PRN PO DECREASED GLUCOSE; Start 02/14/19 at 10:30 Glucose (Glutose) 22.5 gm Q15M PRN PO DECREASED GLUCOSE; Start 02/14/19 at 10:30 Dextrose (D50w Syringe) 25 ml Q15M PRN IV DECREASED GLUCOSE; Start 02/14/19 at 10:30 Dextrose (D50w Syringe) 50 ml Q15M PRN IV DECREASED GLUCOSE; Start 02/14/19 at 10:30 Glucagon (Glucagen) 1 mg Q15M PRN IM DECREASED GLUCOSE; Start 02/14/19 at 10:30 Glucose (Glutose) 15 gm Q15M PRN BUCCAL DECREASED GLUCOSE; Start 02/14/19 at 10:30 Albuterol (Ventolin Hfa) 4 puff Q4H RESP THERAPY INH Last administered on 02/20/19 13:36; Admin Dose 4 PUFF; Start 02/14/19 at 21:00 Ipratropium [place] (Atrovent Hfa) 4 puff Q4H RESP THERAPY INH Last administered on 02/20/19 13:36; Admin Dose 4 PUFF; Start 02/14/19 at 21:00 Insulin Aspart (Novolog Insulin Pen) NOVOLOG *MILD* ALGORI... Q4 SC Last admi nistered on 02/20/19at 10:11; Admin Dose 1 UNIT; Start 02/15/19 at 05:00 Midazolam HCl 50 ml @ 1 mls/hr TITRATE IV Last administered on 02/20/19 10:52; Admin Dose 5 MLS/HR; Start 02/15/19 at 10:00 Docusate Sodium (Colace Liquid Cup) 100 mg BID NGT Last administered on 02/20/19 09:51; Admin Dose 100 MG; Start 02/15/19 at 11:00 Bisacodyl (Dulcolax Supp) 10 mg DAILY PRN [place] CONSTIPATION Last administered on 02/17/19 17:29; Admin Dose 10 MG; Start 02/15/19 at 11:00 Levofloxacin/ Dextrose 150 ml @ 100 mls/hr Q24H IVPB Last administered on 02/19/19 15:20; Admin Dose 100 MLS/HR; Start 02/16/19 at 15:30 Famotidine (Pepcid) 20 mg Q12 NGT Last administered on 02/20/19 09:51; Admin Dose 20 MG; Start 02/18/19 at 21:00 Furosemide (Lasix) 20 mg DAILY IV Last administered on 02/20/19 09:51; Admin Dose 20 MG; Start 02/19/19 at 09:00 Methylprednisolone Sodium Succinate (Solu-Medrol) 40 mg Q12 IV Last administered on 02/20/19 09:51; Admin Dose 40 MG; Start 02/18/19 at 21:00 IV Flush (NS 10 ml) 10 ml PRN PRN IV IV PROTOCOL; Start 02/18/19 at 15:30 Piperacillin Sod/ Tazobactam Sod 100 ml @ 200 mls/hr Q6 IVPB Last administered on 02/20/19 12:00; Admin Dose 200 MLS/HR; Start 02/19/19 at 18:00 Fluconazole (Diflucan) 100 mg DAILY PO Last administered on 02/20/19 09:51; Admin Dose 100 MG; Start 02/19/19 at 12:30 Vancomycin HCl 1.75 gm/Sodium Chloride 500 ml @ 125 mls/hr Q12H IVPB ; Start 02/20/19 at 17:00 Miscellaneous Information (*Rx Drug Level Order Reminder*) VANCOMYCIN TROUGH LEVEL 0400 ONCE XX ; Start 02/22/19 at 04:00; Stop 02/22/19 at 04:01 RUDOLPH YOON NP Feb 20, 2019 13:47
[2019-02-20] MEDS: FENTAnyl (DRIP) 1000 mcg/100mL 100 ML IV SCH (14:47)
--- NOTE | 2019-02-20 14:59 | PN ---
Date/Time of Note Date/Time of Note DATE: 02/20/19 TIME: 14:54 Assessment/Plan VTE Prophylaxis Risk score (from Ns)>0 risk: 10 SCD applied (from [facility] [place]): Yes Pharmacological prophylaxis: NA/contraindicated Pharm contraindication: low risk/ambulating Lines/Catheters IV Catheter Type (from [facility]): PICC Line Central line still needed: Yes Urinary Cath still in place: Yes Reason Cath still needed: urinary retention Assessment/Plan Assessment/Plan Hosspital Course 1. Severe altered mental status likely secondary to metabolic encephalopathy, likely secondary to CO2 narcosis. The patient is also on antidepressants and lo xapine at home. Surprisingly on ABG CO2 levels were not high 2. Hypoxic respiratory failure s/p intubation secondary to pneumonia/CHF 3. Lactic acidosis. Respiratory acidosis. 4. Morbid obesity. 5. Down syndrome. 6. Hypertension. 7. Diabetes. 8. History of ventral hernia repair. 9. Leukocytosis secondary to pneumonia 10. Hypothyroidism 11. KIRIT, more likely due to sepsis Assessment/Plan -Continue with IV vancomycin/zosyn/Levaquin./diflucan - CPAP? - Monitor WBC - ct head and ct a+p today - cw with Lasix 20 -bl.cul negative SO FAR - fi02 40 -c/w tube feed -Vent management per pulmonary. -cardiology input is appreciated -Sedation per pulmonary Continue with solu Medrol 40 twice daily - ECHO 50-55 %. - GI Famotidine BID -DVT prophylaxis Lovenox Result Diagram: 02/20/19 0410 02/20/19 0408 Results 24hrs Laboratory Tests Test 02/19/19 17:12 02/19/19 20:37 02/20/19 00:44 02/20/19 04:08 Bedside Glucose 137 121 153 Sodium Level 143 Potassium Level 4.4 Chloride Level 104 Carbon Dioxide Level 30 Anion Gap 9 Blood Urea Nitrogen 29 H Creatinine 0.79 Est Glomerular > 60 Filtrat Rate mL/min Glucose Level 167 Calcium Level 8.6 Phosphorus Level 4.1 Magnesium Level 2.5 Total Bilirubin 0.4 Direct Bilirubin 0.00 Indirect Bilirubin 0.4 Aspartate Amino 26 Transf (AST/SGOT) Alanine 35 Aminotransferase (AL T/SGPT) Alkaline Phosphatase 38 L Total Protein 6.6 Albumin 3.3 Globulin 3.30 H Albumin/Globulin 1.00 Ratio Vancomycin Level 9.9 L Trough Test 02/20/19 04:10 02/20/19 06:10 02/20/19 10:07 02/20/19 12:56 White Blood Count 13.6 H Red Blood Count 5.09 Hemoglobin 13.6 Hematocrit 44.4 Mean Corpuscular 87.2 Volume Mean Corpuscular 26.7 L Hemoglobin Mean Corpuscular 30.6 L Hemoglobin Concent Red Cell 19.3 H Distribution Width Platelet Count 189 Mean Platelet Volume 9.7 Immature 1.200 H Granulocytes % Neutrophils % 87.1 H Lymphocytes % 3.1 L Monocytes % 8.3 Eosinophils % 0.0 Basophils % 0.3 Nucleated Red Blood 0.0 Cells % Immature 0.160 H Granulocytes # Neutrophils # 11.9 H Lymphocytes # 0.4 L Monocytes # 1.1 H Eosinophils # 0.0 Basophils # 0.0 Nucleated Red Blood 0.0 Cells # Bedside Glucose 141 146 130 Subjective 24 Hr Interval Summary Free Text/Dictation Patient is today on 40% of FiO2 Had fevers of 102 yesterday Pt was unstablel to get CT yesterday Exam/Review of Systems Exam Vitals Vital Signs Date Temp Pulse Resp B/P (MAP) Pulse Ox O2 O2 Flow FiO2 Time Delivery Rate 02/20/19 75 20 101/52 95 Mechanical 13:30 (68) Ventilator 02/20/19 40 12:00 02/20/19 98.6 12:00 Intake and Output 02/19/19 02/19/19 02/20/19 1515:00 23:00 07:00 IntakeIntake Total 563.5 ml 817.3 ml 778.2 ml OutputOutput Total 900 ml 470 ml 445 ml BalanceBalance -336.5 ml 347.3 ml 333.2 ml Exam orally intubated, sedated , moves exterimities Constitutional: non-verbal Head: normocephalic Neck: supple Respiratory: diminished breath sounds Cardiovascular: regular rate and rhythm Gastrointestinal: soft, distended Results Results Results 24hrs Laboratory Tests Test 02/19/19 17:12 02/19/19 20:37 02/20/19 00:44 02/20/19 04:08 Bedside Glucose 137 121 153 Sodium Level 143 Potassium Level 4.4 Chloride Level 104 Carbon Dioxide Level 30 Anion Gap 9 Blood Urea Nitrogen 29 H Creatinine 0.79 Est Glomerular > 60 Filtrat Rate mL/min Glucose Level 167 Calcium Level 8.6 Phosphorus Level 4.1 Magnesium Level 2.5 Total Bilirubin 0.4 Direct Bilirubin 0.00 Indirect Bilirubin 0.4 Aspartate Amino 26 Transf (AST/SGOT) Alanine 35 Aminotransferase (AL T/SGPT) Alkaline Phosphatase 38 L Total Protein 6.6 Albumin 3.3 Globulin 3.30 H Albumin/Globulin 1.00 Ratio Vancomycin Level 9.9 L Trough Test 02/20/19 04:10 02/20/19 06:10 02/20/19 10:07 02/20/19 12:56 White Blood Count 13.6 H Red Blood Count 5.09 Hemoglobin 13.6 Hematocrit 44.4 Mean Corpuscular 87.2 Volume Mean Corpuscular 26.7 L Hemoglobin Mean Corpuscular 30.6 L Hemoglobin Concent Red Cell 19.3 H Distribution Width Platelet Count 189 Mean Platelet Volume 9.7 Immature 1.200 H Granulocytes % Neutrophils % 87.1 H Lymphocytes % 3.1 L Monocytes % 8.3 Eosinophils % 0.0 Basophils % 0.3 Nucleated Red Blood 0.0 Cells % Immature 0.160 H Granulocytes # Neutrophils # 11.9 H Lymphocytes # 0.4 L Monocytes # 1.1 H Eosinophils # 0.0 Basophils # 0.0 Nucleated Red Blood 0.0 Cells # Bedside Glucose 141 146 130 Medications Medication Current Medications IV Flush (NS 3 ml) 3 ml PER PROTOCOL IV ; Start 02/12/19 at 15:30 Ondansetron HCl (Zofran Inj) 4 mg Q6H PRN IV NAUSEA/VOMITING; Start 02/12/19 at 15:30 Acetaminophen (Tylenol Tab) 650 mg Q6H PRN PO .PAIN 1-3 OR TEMP Last administered on 02/19/19at 23:33; Admin Dose 650 MG; Start 02/12/19 at 15:30 Docusate Sodium (Colace) 100 mg Q12H PRN PO .CONSTIPATION; Start 02/12/19 at 15:30 Enoxaparin Sodium (Lovenox) 40 mg DAILY SC Last administered on 02/20/19at 09:52; Admin Dose 40 MG; Start 02/13/19 at 09:00 Vancomycin HCl (Vanco Iv Per Pharmacy) VANCOMYCIN PER PHARMACY PER PROTOCOL XX ; Start 02/12/19 at 15:30 Propofol 100 ml @ 3.027 mls/ hr Q12H IV Last administered on 02/20/19 08:16; Admin Dose 9.686 MLS/HR; Start 02/13/19 at 00:30 Fentanyl 100 ml @ 2.5 mls/hr TITRATE IV Last administered on 02/20/19 14:47; Admin Dose 2 MLS/HR; Start 02/13/19 at 12:00 Levothyroxine Sodium (Synthroid) 88 mcg BEFORE BREAKFAST PO Last administered on 02/20/19 06:05; Admin Dose 88 MCG; Start 02/15/19 at 07:00 Miscellaneous Information 1 ea NOTE XX ; Start 02/14/19 at 10:30 Glucose (Glutose) 15 gm Q15M PRN PO DECREASED GLUCOSE; Start 02/14/19 at 10:30 Glucose (Glutose) 22.5 gm Q15M PRN PO DECREASED GLUCOSE; Start 02/14/19 at 10:30 Dextrose (D50w Syringe) 25 ml Q15M PRN IV DECREASED GLUCOSE; Start 02/14/19 at 10:30 Dextrose (D50w Syringe) 50 ml Q15M PRN IV DECREASED GLUCOSE; Start 02/14/19 at 10:30 Glucagon (Glucagen) 1 mg Q15M PRN IM DECREASED GLUCOSE; Start 02/14/19 at 10:30 Glucose (Glutose) 15 gm Q15M PRN BUCCAL DECREASED GLUCOSE; Start 02/14/19 at 10:30 Albuterol (Ventolin Hfa) 4 puff Q4H RESP THERAPY INH Last administered on 02/20/19 13:36; Admin Dose 4 PUFF; Start 02/14/19 at 21:00 Ipratropium [place] (Atrovent Hfa) 4 puff Q4H RESP THERAPY INH Last administered on 02/20/19 13:36; Admin Dose 4 PUFF; Start 02/14/19 at 21:00 Insulin Aspart (Novolog Insulin Pen) NOVOLOG *MILD* ALGORI... Q4 SC Last administered on 02/20/19 10:11; Admin Dose 1 UNIT; Start 02/15/19 at 05:00 Midazolam HCl 50 ml @ 1 mls/hr TITRATE IV Last administered on 02/20/19 10:52; Admin Dose 5 MLS/HR; Start 02/15/19 at 10:00 Docusate Sodium (Colace Liquid Cup) 100 mg BID NGT Last administered on 02/20/19 09:51; Admin Dose 100 MG; Start 02/15/19 at 11:00 Bisacodyl (Dulcolax Supp) 10 mg DAILY PRN [place] CONSTIPATION Last administered on 02/17/19 17:29; Admin Dose 10 MG; Start 02/15/19 at 11:00 Levofloxacin/ Dextrose 150 ml @ 100 mls/hr Q24H IVPB Last administered on 02/19 15:20; Admin Dose 100 MLS/HR; Start 02/16/19 at 15:30 Famotidine (Pepcid) 20 mg Q12 NGT Last administered on 02/20/19 09:51; Admin Dose 20 MG; Start 02/18/19 at 21:00 Furosemide (Lasix) 20 mg DAILY IV Last administered on 02/20/19 09:51; Admin Dose 20 MG; Start 02/19/19 at 09:00 Methylprednisolone Sodium Succinate (Solu-Medrol) 40 mg Q12 IV Last administered on 02/20/19 09:51; Admin Dose 40 MG; Start 02/18/19 at 21:00 IV Flush (NS 10 ml) 10 ml PRN PRN IV IV PROTOCOL; Start 02/18/19 at 15:30 Piperacillin Sod/ Tazobactam Sod 100 ml @ 200 mls/hr Q6 IVPB Last administered on 02/20/19 12:00; Admin Dose 200 MLS/HR; Start 02/19/19 at 18:00 Fluconazole (Diflucan) 100 mg DAILY PO Last administered on 02/20/19 09:51; Admin Dose 100 MG; Start 02/19/19 at 12:30 Vancomycin HCl 1.75 gm/Sodium Chloride 500 ml @ 125 mls/hr Q12H IVPB ; Start 02/20/19 at 17:00 Miscellaneous Information (*Rx Drug Level Order Reminder*) VANCOMYCIN TROUGH LEVEL 0400 ONCE XX ; Start 02/22/19 at 04:00; Stop 02/22/19 at 04:01 LORNA LYONS MD Feb 20, 2019 14:59
[2019-02-20] MEDS: LEVOFLOXACIN 750MG/D5W (PMX) 150 ML IVPB SCH (15:44)
[2019-02-20] MEDS: VANCOMYCIN HCL 1.75 GM in SOD CHLORIDE 0.9% 500 ML IVPB SCH (17:54)
[2019-02-20] MEDS ORDERED: IPRATROPIUM (HFA) 12.9 GM INHALER INH SCH (18:00)
[2019-02-20] MEDS ORDERED: ALBUTEROL HFA 8 GM INHALER INH SCH (18:00)
[2019-02-20] MEDS: ACETAMINOPHEN 325 MG TAB PO PRN (23:14)
[2019-02-21] VITALS (59 sets, daily range): BP systolic 94–130; BP diastolic 43–83; PULSE 66–101; RESP 19–28
[2019-02-21] MEDS: ALBUTEROL HFA 8 GM INHALER INH SCH ×4 (01:26→20:36)
[2019-02-21] MEDS: IPRATROPIUM (HFA) 12.9 GM INHALER INH SCH ×4 (01:26→20:36)
[2019-02-21] MEDS: INSULIN ASPART [NOVOLOG] 3 ML PEN SC SCH ×6 (01:33→20:51)
[2019-02-21] MEDS: PROPOFOL 100 ML IV SCH ×3 (02:41→22:24)
[2019-02-21] MEDS: MIDAZOLAM (DRIP) 50 mg/50 mL 50 ML IV SCH ×2 (02:42→16:39)
[2019-02-21] MEDS: LEVOTHYROXINE 88 MCG TAB PO SCH (05:19)
[2019-02-21] MEDS: VANCOMYCIN HCL 1.75 GM in SOD CHLORIDE 0.9% 500 ML IVPB SCH ×2 (05:19→18:01)
[2019-02-21] MEDS: PIPER-TAZO 3.375 GM IV (PMX) 100 ML IVPB SCH ×3 (05:19→18:01)
[2019-02-21] MEDS: DOCUSATE SODIUM 10 MG/ML (10ML CUP) NGT SCH ×2 (09:14→20:43)
[2019-02-21] MEDS: METHYLPREDNISOLONE 40 MG INJ IV SCH ×2 (09:15→20:44)
[2019-02-21] MEDS: FLUCONAZOLE 100 MG TAB PO SCH (09:15)
[2019-02-21] MEDS: FUROSEMIDE 20 MG INJ IV SCH (09:15)
[2019-02-21] MEDS: FAMOTIDINE 20 MG TAB NGT SCH ×2 (09:15→20:43)
[2019-02-21] MEDS: ENOXAPARIN 40 MG/0.4 ML SYG SC SCH (09:19)
--- NOTE | 2019-02-21 09:29 | CONS ---
Assessment/Plan Assessment/Plan Assessment/Plan (Daily) Ventilator setting; assist control of 20, tidal volume 400, PEEP of 5, 40% FiO2. Patient is currently on Versed 7 mg/h. Propofol 16 mics per kilogram per minute. Assessment and recommendations; 1. Patient with history of Down syndrome admitted with bilateral pneumonia with significant interval clinical and radiological improvement. 2. History of hypothyroidism. 3. Mild CHF as well. Hold further sedation to assess mental status. Once the patient is off sedation she will be evaluated for possible weaning from ventilator. Meanwhile continue current supportive care. Obtain follow-up chest x-ray. I did have a detailed discussion the patient's mother at bedside answered all her questions. Care coordinated with patient's nurse as well as respiratory therapist. 35 minutes of critical care time was spent evaluating patient. Consultation Date/Type/Reason Admit Date/Time Feb 12, 2019 at 12:24 Initial Consult Date Type of Consult Pulmonary/critical care Patient's condition remains critical. Still on fairly high FiO2. Patient however has remained hemodynamically stable. Patient does become agitated off sedation. General exam; young female, morbidly obese, orally intubated and sedated. Currently in no distress. Requesting Provider: LORNA LYONS MD Date/Time of Note DATE: 02/21/19 TIME: 09:27 24 HR Interval Summary Free Text/Dictation Patient's condition is critical. Patient however has remained hemodynamically stable. General exam; young woman, orally intubated, sedated, currently in no distress. Exam/Review of Systems Exam Vitals Vital Signs Date Temp Pulse Resp B/P (MAP) Pulse Ox O2 O2 Flow FiO2 Time Delivery Rate 02/21/19 72 20 106/53 100 08:15 (70) 02/21/19 99.6 Mechanical 08:00 Ventilator 02/21/19 40 05:32 Intake and Output 02/20/19 02/20/19 02/21/19 1515:00 23:00 07:00 IntakeIntake Total 492.802 ml 1069.958 ml 690.6 ml OutputOutput Total 1340 ml 470 ml 325 ml BalanceBalance -847.198 ml 599.958 ml 365.6 ml Exam H ENT exam; patient has Down's facies. Orally intubated. Dentition is fair. No neck masses. Pupils are small bilaterally. Chest exam; diminished but clear breath sounds. S1-S2 audible, no murmurs. Regular rhythm. Abdomen exam; soft, protuberant. Bowel sounds audible. No organomegaly. Extremity exam; no peripheral edema clubbing. [employer] exam; patient is sedated. Results Result Diagram: 02/21/19 0400 02/21/19 0400 Results 24hrs Laboratory Tests Test 02/20/19 10:07 02/20/19 12:56 02/20/19 17:34 02/20/19 21:17 Bedside Glucose 146 130 151 134 Test 02/21/19 01:30 02/21/19 04:00 02/21/19 05:29 02/21/19 09:13 Bedside Glucose 152 193 179 White Blood Count 13.3 H Red Blood Count 4.84 Hemoglobin 13.2 Hematocrit 43.0 Mean Corpuscular 88.8 Volume Mean Corpuscular 27.3 L Hemoglobin Mean Corpuscular 30.7 L Hemoglobin Concent Red Cell 19.1 H Distribution Width Platelet Count 190 Mean Platelet Volume 10.0 Immature 1.100 H Granulocytes % Neutrophils % 88.0 H Lymphocytes % 2.9 L Monocytes % 7.4 Eosinophils % 0.0 Basophils % 0.6 Nucleated Red Blood 0.0 Cells % Immature 0.150 H Granulocytes # Neutrophils # 11.7 H Lymphocytes # 0.4 L Monocytes # 1.0 H Eosinophils # 0.0 Basophils # 0.1 Nucleated Red Blood 0.0 Cells # Sodium Level 140 Potassium Level 4.0 Chloride Level 102 Carbon Dioxide Level 29 Anion Gap 9 Blood Urea Nitrogen 26 H Creatinine 0.74 Est Glomerular > 60 Filtrat Rate mL/min Glucose Level 164 Calcium Level 8.5 Phosphorus Level 3.3 Magnesium Level 2.4 Total Bilirubin 0.4 Direct Bilirubin 0.00 Indirect Bilirubin 0.4 Aspartate Amino 21 Transf (AST/SGOT) Alanine 34 Aminotransferase (AL T/SGPT) Alkaline Phosphatase 38 L Total Protein 6.3 Albumin 3.3 Globulin 3.00 Albumin/Globulin 1.10 Ratio Medications Medication Current Medications IV Flush (NS 3 ml) 3 ml PER PROTOCOL IV ; Start 02/12/19 at 15:30 Ondansetron HCl (Zofran Inj) 4 mg Q6H PRN IV NAUSEA/VOMITING; Start 02/12/19 at 15:30 Acetaminophen (Tylenol Tab) 650 mg Q6H PRN PO .PAIN 1-3 OR TEMP Last administered on 02/20/19at 23:14; Admin Dose 650 MG; Start 02/12/19 at 15:30 Docusate Sodium (Colace) 100 mg Q12H PRN PO .CONSTIPATION; Start 02/12/19 at 15:30 Enoxaparin Sodium (Lovenox) 40 mg DAILY SC Last administered on 02/21/19at 09:19; Admin Dose 40 MG; Start 02/13/19 at 09:00 Vancomycin HCl (Vanco Iv Per Pharmacy) VANCOMYCIN PER PHARMACY PER PROTOCOL XX ; Start 02/12/19 at 15:30 Propofol 100 ml @ 3.027 mls/ hr Q12H IV Last administered on 02/21/19at 02:41; Admin Dose 9.686 MLS/HR; Start 02/13/19 at 00:30 Fentanyl 100 ml @ 2.5 mls/hr TITRATE IV Last administered on 02/20/19at 14:47; Admin Dose 2 MLS/HR; Start 02/13/19 at 12:00 Levothyroxine Sodium (Synthroid) 88 mcg BEFORE BREAKFAST PO Last administered on 02/21/19at 05:19; Admin Dose 88 MCG; Start 02/15/19 at 07:00 Miscellaneous Information 1 ea NOTE XX ; Start 02/14/19 at 10:30 Glucose (Glutose) 15 gm Q15M PRN PO DECREASED GLUCOSE; Start 02/14/19 at 10:30 Glucose (Glutose) 22.5 gm Q15M PRN PO DECREASED GLUCOSE; Start 02/14/19 at 10:30 Dextrose (D50w Syringe) 25 ml Q15M PRN IV DECREASED GLUCOSE; Start 02/14/19 at 10:30 Dextrose (D50w Syringe) 50 ml Q15M PRN IV DECREASED GLUCOSE; Start 02/14/19 at 10:30 Glucagon (Glucagen) 1 mg Q15M PRN IM DECREASED GLUCOSE; Start 02/14/19 at 10:30 Glucose (Glutose) 15 gm Q15M PRN BUCCAL DECREASED GLUCOSE; Start 02/14/19 at 10:30 Insulin Aspart (Novolog Insulin Pen) NOVOLOG *MILD* ALGORI... Q4 SC Last administered on 02/21/19at 09:17; Admin Dose 1 UNIT; Start 02/15/19 at 05:00 Midazolam HCl 50 ml @ 1 mls/hr TITRATE IV Last administered on 02/21/19 02:42; Admin Dose 7 MLS/HR; Start 02/15/19 at 10:00 Docusate Sodium (Colace Liquid Cup) 100 mg BID NGT Last administered on 02/21/19 09:14; Admin Dose 100 MG; Start 02/15/19 at 11:00 Bisacodyl (Dulcolax Supp) 10 mg DAILY PRN [place] CONSTIPATION Last administered on 02/17/19 17:29; Admin Dose 10 MG; Start 02/15/19 at 11:00 Levofloxacin/ Dextrose 150 ml @ 100 mls/hr Q24H IVPB Last administered on 02/20/19 15:44; Admin Dose 100 MLS/HR; Start 02/16/19 at 15:30 Famotidine (Pepcid) 20 mg Q12 NGT Last administered on 02/21/19 09:15; Admin Dose 20 MG; Start 02/18/19 at 21:00 Furosemide (Lasix) 20 mg DAILY IV Last administered on 02/21/19 09:15; Admin Dose 20 MG; Start 02/19/19 at 09:00 Methylprednisolone Sodium Succinate (Solu-Medrol) 40 mg Q12 IV Last administere d on 02/21/19 09:15; Admin Dose 40 MG; Start 02/18/19 at 21:00 IV Flush (NS 10 ml) 10 ml PRN PRN IV IV PROTOCOL; Start 02/18/19 at 15:30 Piperacillin Sod/ Tazobactam Sod 100 ml @ 200 mls/hr Q6 IVPB Last administered on 02/21/19 05:19; Admin Dose 200 MLS/HR; Start 02/19/19 at 18:00 Fluconazole (Diflucan) 100 mg DAILY PO Last administered on 02/21/19 09:15; Admin Dose 100 MG; Start 02/19/19 at 12:30 Vancomycin HCl 1.75 gm/Sodium Chloride 500 ml @ 125 mls/hr Q12H IVPB Last administered on 02/21/19 05:19; Admin Dose 125 MLS/HR; Start 02/20/19 at 17:00 Miscellaneous Information (*Rx Drug Level Order Reminder*) VANCOMYCIN TROUGH LEVEL 0400 ONCE XX ; Start 02/22/19 at 04:00; Stop 02/22/19 at 04:01 Albuterol (Ventolin Hfa) 4 puff Q6H RESP THERAPY INH Last administered on 02/21/19 08:29; Admin Dose 4 PUFF; Start 02/20/19 at 20:03 Ipratropium [place] (Atrovent Hfa) 4 puff Q6H RESP THERAPY INH Last administered on 02/21/19 08:29; Admin Dose 4 PUFF; Start 02/20/19 at 20:04 WILLA MARQUEZ Feb 21, 2019 09:29
--- NOTE | 2019-02-21 10:15 | CONS ---
Assessment/Plan Assessment/Plan Hospital Course (Demo Recall) IMPRESSION: 1. Congestive heart failure-diastolic acute on chronic 2. Lower extremity edema, assess for congestive heart failure.-preserved EF 3. Tachycardia, improved, status post intubation, likely due to respiratory distress. 4. Abnormal electrocardiogram with right axis deviation and T-wave flattening. -neg trop x 3 5. Down syndrome. 6. Hypothyroidism. 7. Diabetes mellitus. 8. Obstructive sleep apnea. 9. hypotension-remains borderline but stable relatively 10. Resp failure s/p intubation Recc: -ICU -Continue lasix diuresis daily and follow volume status closely -Contineu abx's and f/u cx data -Continue steroids and bronchodilators -Wean vent as tolerated with patient undergoing attempted wean this am with lightening of sedation Consultation Date/Type/Reason Admit Date/Time Feb 12, 2019 at 12:24 Initial Consult Date 02/12/19 Type of Consult Cardiology Reason for Consultation CHF Requesting Provider: LORNA LYONS MD Date/Time of Note DATE: 02/21/19 TIME: 10:13 Exam/Review of Systems Vital Signs Vitals Vital Signs Date Temp Pulse Resp B/P (MAP) Pulse Ox O2 O2 Flow FiO2 Time Delivery Rate 02/21/19 72 20 106/53 100 08:15 (70) 02/21/19 99.6 Mechanical 08:00 Ventilator 02/21/19 40 05:32 Intake and Output 02/20/19 02/20/19 02/21/19 1515:00 23:00 07:00 IntakeIntake Total 492.802 ml 1069.958 ml 690.6 ml OutputOutput Total 1340 ml 470 ml 325 ml BalanceBalance -847.198 ml 599.958 ml 365.6 ml Exam Exam Review of Systems: CONSTITUTIONAL: No fevers, chills. PULMONARY: No sob CARDIOVASCULAR: No chest pain/palpitations GASTROINTESTINAL: No nausea/vomiting. GENITOURINARY: No hematuria/dysuria. MUSCULOSKELETAL: No myagias/arthalgias. PSYCHIATRIC: The patient denies depression. NEUROLOGIC: No weakness Constitutional: alert Psych: no complaints Head: normocephalic ENMT: mucosa pink and moist Neck: supple, jvd (9 cm water) Respiratory: other (upper airway rhoncherous sounds) Cardiovascular: regular rate and rhythm Gastrointestinal: soft, non-tender Musculoskeletal: muscle tone (normal) Extremities: edema (trace/B) Neurological: other (No focal defiicts) Labs Result Diagram: 02/21/19 0400 02/21/19 0400 Results 24hrs Laboratory Tests Test 02/20/19 12:56 02/20/19 17:34 02/20/19 21:17 02/21/19 01:30 Bedside Glucose 130 151 134 152 Test 02/21/19 04:00 02/21/19 05:29 02/21/19 09:13 White Blood Count 13.3 H Red Blood Count 4.84 Hemoglobin 13.2 Hematocrit 43.0 Mean Corpuscular 88.8 Volume Mean Corpuscular 27.3 L Hemoglobin Mean Corpuscular 30.7 L Hemoglobin Concent Red Cell 19.1 H Distribution Width Platelet Count 190 Mean Platelet Volume 10.0 Immature 1.100 H Granulocytes % Neutrophils % 88.0 H Lymphocytes % 2.9 L Monocytes % 7.4 Eosinophils % 0.0 Basophils % 0.6 Nucleated Red Blood 0.0 Cells % Immature 0.150 H Granulocytes # Neutrophils # 11.7 H Lymphocytes # 0.4 L Monocytes # 1.0 H Eosinophils # 0.0 Basophils # 0.1 Nucleated Red Blood 0.0 Cells # Sodium Level 140 Potassium Level 4.0 Chloride Level 102 Carbon Dioxide Level 29 Anion Gap 9 Blood Urea Nitrogen 26 H Creatinine 0.74 Est Glomerular > 60 Filtrat Rate mL/min Glucose Level 164 Calcium Level 8.5 Phosphorus Level 3.3 Magnesium Level 2.4 Total Bilirubin 0.4 Direct Bilirubin 0.00 Indirect Bilirubin 0.4 Aspartate Amino 21 Transf (AST/SGOT) Alanine 34 Aminotransferase (AL T/SGPT) Alkaline Phosphatase 38 L Total Protein 6.3 Albumin 3.3 Globulin 3.00 Albumin/Globulin 1.10 Ratio Bedside Glucose 193 179 Medications Medications Current Medications IV Flush (NS 3 ml) 3 ml PER PROTOCOL IV ; Start 02/12/19 at 15:30 Ondansetron HCl (Zofran Inj) 4 mg Q6H PRN IV NAUSEA/VOMITING; Start 02/12/19 at 15:30 Acetaminophen (Tylenol Tab) 650 mg Q6H PRN PO .PAIN 1-3 OR TEMP Last administered on 02/20/19at 23:14; Admin Dose 650 MG; Start 02/12/19 at 15:30 Docusate Sodium (Colace) 100 mg Q12H PRN PO .CONSTIPATION; Start 02/12/19 at 15:30 Enoxaparin Sodium (Lovenox) 40 mg DAILY SC Last administered on 02/21/19at 09:19; Admin Dose 40 MG; Start 02/13/19 at 09:00 Vancomycin HCl (Vanco Iv Per Pharmacy) VANCOMYCIN PER PHARMACY PER PROTOCOL XX ; Start 02/12/19 at 15:30 Propofol 100 ml @ 3.027 mls/ hr Q12H IV Last administered on 02/21/19at 02:41; Admin Dose 9.686 MLS/HR; Start 02/13/19 at 00:30 Fentanyl 100 ml @ 2.5 mls/hr TITRATE IV Last administered on 02/20/19at 14:47; Admin Dose 2 MLS/HR; Start 02/13/19 at 12:00 Levothyroxine Sodium (Synthroid) 88 mcg BEFORE BREAKFAST PO Last administered on 02/21/19at 05:19; Admin Dose 88 MCG; Start 02/15/19 at 07:00 Miscellaneous Information 1 ea NOTE XX ; Start 02/14/19 at 10:30 Glucose (Glutose) 15 gm Q15M PRN PO DECREASED GLUCOSE; Start 02/14/19 at 10:30 Glucose (Glutose) 22.5 gm Q15M PRN PO DECREASED GLUCOSE; Start 02/14/19 at 10:30 Dextrose (D50w Syringe) 25 ml Q15M PRN IV DECREASED GLUCOSE; Start 02/14/19 at 10:30 Dextrose (D50w Syringe) 50 ml Q15M PRN IV DECREASED GLUCOSE; Start 02/14/19 at 10:30 Glucagon (Glucagen) 1 mg Q15M PRN IM DECREASED GLUCOSE; Start 02/14/19 at 10:30 Glucose (Glutose) 15 gm Q15M PRN BUCCAL DECREASED GLUCOSE; Start 02/14/19 at 10 :30 Insulin Aspart (Novolog Insulin Pen) NOVOLOG *MILD* ALGORI... Q4 SC Last administered on 02/21/19at 09:17; Admin Dose 1 UNIT; Start 02/15/19 at 05:00 Midazolam HCl 50 ml @ 1 mls/hr TITRATE IV Last administered on 02/21/19at 02:42; Admin Dose 7 MLS/HR; Start 02/15/19 at 10:00 Docusate Sodium (Colace Liquid Cup) 100 mg BID NGT Last administered on 02/21/19 09:14; Admin Dose 100 MG; Start 02/15/19 at 11:00 Bisacodyl (Dulcolax Supp) 10 mg DAILY PRN [place] CONSTIPATION Last administered on 02/17/19 17:29; Admin Dose 10 MG; Start 02/15/19 at 11:00 Levofloxacin/ Dextrose 150 ml @ 100 mls/hr Q24H IVPB Last administered on 02/20/19 15:44; Admin Dose 100 MLS/HR; Start 02/16/19 at 15:30 Famotidine (Pepcid) 20 mg Q12 NGT Last administered on 02/21/19 09:15; Admin Dose 20 MG; Start 02/18/19 at 21:00 Furosemide (Lasix) 20 mg DAILY IV Last administered on 02/21/19 09:15; Admin Dose 20 MG; Start 02/19/19 at 09:00 Methylprednisolone Sodium Succinate (Solu-Medrol) 40 mg Q12 IV Last administered on 02/21/19 09:15; Admin Dose 40 MG; Start 02/18/19 at 21:00 IV Flush (NS 10 ml) 10 ml PRN PRN IV IV PROTOCOL; Start 02/18/19 at 15:30 Piperacillin Sod/ Tazobactam Sod 100 ml @ 200 mls/hr Q6 IVPB Last administered on 02/21/19 05:19; Admin Dose 200 MLS/HR; Start 02/19/19 at 18:00 Fluconazole (Diflucan) 100 mg DAILY PO Last administered on 02/21/19 09:15; Admin Dose 100 MG; Start 02/19/19 at 12:30 Vancomycin HCl 1.75 gm/Sodium Chloride 500 ml @ 125 mls/hr Q12H IVPB Last administered on 02/21/19 05:19; Admin Dose 125 MLS/HR; Start 02/20/19 at 17:00 Miscellaneous Information (*Rx Drug Level Order Reminder*) VANCOMYCIN TROUGH LEVEL 0400 ONCE XX ; Start 02/22/19 at 04:00; Stop 02/22/19 at 04:01 Albuterol (Ventolin Hfa) 4 puff Q6H RESP THERAPY INH Last administered on 02/21/19 08:29; Admin Dose 4 PUFF; Start 02/20/19 at 20:03 Ipratropium [place] (Atrovent Hfa) 4 puff Q6H RESP THERAPY INH Last administered on 02/21/19 08:29; Admin Dose 4 PUFF; Start 02/20/19 at 20:04 SHARIF TORRES Feb 21, 2019 10:15
[2019-02-21] MEDS: BISACODYL 10 MG SUPP PR PRN (14:06)
--- NOTE | 2019-02-21 14:41 | CONS ---
Assessment/Plan Assessment/Plan Hospital Course (Demo Recall) Patient remains unchanged with ongoing fevers last night T-max was 101 today she had a low-grade fever of 100.4 and currently afebrile. WBC 13.3 neutrophils 88 BUN 26 creatinine 0.74 Indwelling: Endotracheal tube, NG tube, PICC line, Nelson Antimicrobials: Zosyn fluconazole vancomycin Levaquin Microbiology: Endotracheal aspirate growing staph aureus, blood and urine culture since admission negative Physical examination: Obese well-developed middle-aged woman who is intubated sedated in no distress. Head atraumatic normocephalic neck is obese short, chest rise symmetrical breath sounds diminished bases. Heart: S1-S2. Abdomen soft bowel sounds present. Extremities without cyanosis Assessment: 1. Sepsis with ongoing fevers likely 2 to #2 2. Bilateral multifocal pneumonia 3. Acute respiratory failure 4. Diabetes 5. Morbid obesity 6. Down syndrome Plan: Remains unchanged, continue present care and antibiotics, vent management per pulmonary Consultation Date/Type/Reason Admit Date/Time Feb 12, 2019 at 12:24 Initial Consult Date Type of Consult id Requesting Provider: LORNA LYONS MD Date/Time of Note DATE: 02/21/19 TIME: 14:40 Exam/Review of Systems Exam Vitals Vital Signs Date Temp Pulse Resp B/P (MAP) Pulse Ox O2 O2 Flow FiO2 Time Delivery Rate 02/21/19 75 20 105/56 99 14:30 (72) 02/21/19 98.7 12:00 02/21/19 Mechanical 11:00 Ventilator 02/21/19 40 05:32 Intake and Output 02/20/19 02/20/19 02/21/19 1515:00 23:00 07:00 IntakeIntake Total 492.802 ml 1069.958 ml 884.286 ml OutputOutput Total 1340 ml 470 ml 425 ml BalanceBalance -847.198 ml 599.958 ml 459.286 ml Results Result Diagram: 02/21/19 0400 02/21/19 0400 Results 24hrs Laboratory Tests Test 02/20/19 17:34 02/20/19 21:17 02/21/19 01:30 02/21/19 04:00 Bedside Glucose 151 134 152 White Blood Count 13.3 H Red Blood Count 4.84 Hemoglobin 13.2 Hematocrit 43.0 Mean Corpuscular 88.8 Volume Mean Corpuscular 27.3 L Hemoglobin Mean Corpuscular 30.7 L Hemoglobin Concent Red Cell 19.1 H Distribution Width Platelet Count 190 Mean Platelet Volume 10.0 Immature 1.100 H Granulocytes % Neutrophils % 88.0 H Lymphocytes % 2.9 L Monocytes % 7.4 Eosinophils % 0.0 Basophils % 0.6 Nucleated Red Blood 0.0 Cells % Immature 0.150 H Granulocytes # Neutrophils # 11.7 H Lymphocytes # 0.4 L Monocytes # 1.0 H Eosinophils # 0.0 Basophils # 0.1 Nucleated Red Blood 0.0 Cells # Sodium Level 140 Potassium Level 4.0 Chloride Level 102 Carbon Dioxide Level 29 Anion Gap 9 Blood Urea Nitrogen 26 H Creatinine 0.74 Est Glomerular > 60 Filtrat Rate mL/min Glucose Level 164 Calcium Level 8.5 Phosphorus Level 3.3 Magnesium Level 2.4 Total Bilirubin 0.4 Direct Bilirubin 0.00 Indirect Bilirubin 0.4 Aspartate Amino 21 Transf (AST/SGOT) Alanine 34 Aminotransferase (AL T/SGPT) Alkaline Phosphatase 38 L Total Protein 6.3 Albumin 3.3 Globulin 3.00 Albumin/Globulin 1.10 Ratio Test 02/21/19 05:29 02/21/19 09:13 02/21/19 13:16 Bedside Glucose 193 179 167 Medications Medication Current Medications IV Flush (NS 3 ml) 3 ml PER PROTOCOL IV ; Start 02/12/19 at 15:30 Ondansetron HCl (Zofran Inj) 4 mg Q6H PRN IV NAUSEA/VOMITING; Start 02/12/19 at 15:30 Acetaminophen (Tylenol Tab) 650 mg Q6H PRN PO .PAIN 1-3 OR TEMP Last administ ered on 02/20/19at 23:14; Admin Dose 650 MG; Start 02/12/19 at 15:30 Docusate Sodium (Colace) 100 mg Q12H PRN PO .CONSTIPATION Last administered on 02/21/19at 14:05; Admin Dose 100 MG; Start 02/12/19 at 15:30 Enoxaparin Sodium (Lovenox) 40 mg DAILY SC Last administered on 02/21/19at 09:19; Admin Dose 40 MG; Start 02/13/19 at 09:00 Vancomycin HCl (Vanco Iv Per Pharmacy) VANCOMYCIN PER PHARMACY PER PROTOCOL XX ; Start 02/12/19 at 15:30 Propofol 100 ml @ 3.027 mls/ hr Q12H IV Last administered on 02/21/19 11:53; Admin Dose 9.686 MLS/HR; Start 02/13/19 at 00:30 Fentanyl 100 ml @ 2.5 mls/hr TITRATE IV Last administered on 02/20/19at 14:47; Admin Dose 2 MLS/HR; Start 02/13/19 at 12:00 Levothyroxine Sodium (Synthroid) 88 mcg BEFORE BREAKFAST PO Last administered on 02/21/19 05:19; Admin Dose 88 MCG; Start 02/15/19 at 07:00 Miscellaneous Information 1 ea NOTE XX ; Start 02/14/19 at 10:30 Glucose (Glutose) 15 gm Q15M PRN PO DECREASED GLUCOSE; Start 02/14/19 at 10:30 Glucose (Glutose) 22.5 gm Q15M PRN PO DECREASED GLUCOSE; Start 02/14/19 at 10:30 Dextrose (D50w Syringe) 25 ml Q15M PRN IV DECREASED GLUCOSE; Start 02/14/19 at 10:30 Dextrose (D50w Syringe) 50 ml Q15M PRN IV DECREASED GLUCOSE; Start 02/14/19 at 10:30 Glucagon (Glucagen) 1 mg Q15M PRN IM DECREASED GLUCOSE; Start 02/14/19 at 10:30 Glucose (Glutose) 15 gm Q15M PRN BUCCAL DECREASED GLUCOSE; Start 02/14/19 at 10:30 Insulin Aspart (Novolog Insulin Pen) NOVOLOG *MILD* ALGORI... Q4 SC Last administered on 02/21/19at 13:19; Admin Dose 1 UNIT; Start 02/15/19 at 05:00 Midazolam HCl 50 ml @ 1 mls/hr TITRATE IV Last administered on 02/21/19at 02:42; Admin Dose 7 MLS/HR; Start 02/15/19 at 10:00 Docusate Sodium (Colace Liquid Cup) 100 mg BID NGT Last administered on 02/21/19at 09:14; Admin Dose 100 MG; Start 02/15/19 at 11:00 Bisacodyl (Dulcolax Supp) 10 mg DAILY PRN [place] CONSTIPATION Last administered on 02/21/19at 14:06; Admin Dose 10 MG; Start 02/15/19 at 11:00 Levofloxacin/ Dextrose 150 ml @ 100 mls/hr Q24H IVPB Last administered on 02/20/19 15:44; Admin Dose 100 MLS/HR; Start 02/16/19 at 15:30 Famotidine (Pepcid) 20 mg Q12 NGT Last administered on 02/21/19 09:15; Admin Dose 20 MG; Start 02/18/19 at 21:00 Furosemide (Lasix) 20 mg DAILY IV Last administered on 02/21/19 09:15; Admin Dose 20 MG; Start 02/19/19 at 09:00 Methylprednisolone Sodium Succinate (Solu-Medrol) 40 mg Q12 IV Last administered on 02/21/19 09:15; Admin Dose 40 MG; Start 02/18/19 at 21:00 IV Flush (NS 10 ml) 10 ml PRN PRN IV IV PROTOCOL; Start 02/18/19 at 15:30 Piperacillin Sod/ Tazobactam Sod 100 ml @ 200 mls/hr Q6 IVPB Last administered on 02/21/19 11:36; Admin Dose 200 MLS/HR; Start 02/19/19 at 18:00 Fluconazole (Diflucan) 100 mg DAILY PO Last administered on 02/21/19 09:15; Admin Dose 100 MG; Start 02/19/19 at 12:30 Vancomycin HCl 1.75 gm/Sodium Chloride 500 ml @ 125 mls/hr Q12H IVPB Last administered on 02/21/19 05:19; Admin Dose 125 MLS/HR; Start 02/20/19 at 17:00 Miscellaneous Information (*Rx Drug Level Order Reminder*) VANCOMYCIN TROUGH LEVEL 0400 ONCE XX ; Start 02/22/19 at 04:00; Stop 02/22/19 at 04:01 Albuterol (Ventolin Hfa) 4 puff Q6H RESP THERAPY INH Last administered on 02/21/19 13:14; Admin Dose 4 PUFF; Start 02/20/19 at 20:03 Ipratropium [place] (Atrovent Hfa) 4 puff Q6H RESP THERAPY INH Last administe red on 02/21/19 13:14; Admin Dose 4 PUFF; Start 02/20/19 at 20:04 RUDOLPH YOON NP Feb 21, 2019 14:41
[2019-02-21] MEDS: ACETAMINOPHEN 325 MG TAB PO PRN (15:26)
[2019-02-21] MEDS ORDERED: NA PHOSPHATE/BIPHOS 133 ML ENEMA PR ONE (16:00)
--- NOTE | 2019-02-21 16:00 | PN ---
CARY GIPSON 02/21/19 1600: Date/Time of Note Date/Time of Note DATE: 02/21/19 TIME: 15:53 Assessment/Plan VTE Prophylaxis [place] [facility] risk: 11 SCD applied [place] [facility] Yes Pharmacological prophylaxis: LMWH Lines/Catheters IV Catheter Type (from [facility]): PICC Line Central line still needed: Yes Urinary Cath still in place: Yes Reason Cath still needed: urinary retention Assessment/Plan Hospital Course 1. Severe altered mental status likely secondary to metabolic encephalopathy, likely secondary to CO2 narcosis. The patient is also on antidepressants and loxapine at home. Surprisingly on ABG CO2 levels were not high 2. Hypoxic respiratory failure s/p intubation secondary to pneumonia/CHF 3. Lactic acidosis. Respiratory acidosis. 4. Morbid obesity. 5. Down syndrome. 6. Hypertension. 7. Diabetes. 8. History of ventral hernia repair. 9. Leukocytosis secondary to pneumonia 10. Hypothyroidism 11. KIRIT, more likely due to sepsis Assessment/Plan -Continue with IV vancomycin/zosyn/Levaquin./diflucan - CPAPtrail failed - Monitor WBC - ct head and ct a+p today - cw with Lasix 20 -bl.cul negative -enema - fi02 40 -c/w tube feed -Vent management per pulmonary. -cardiology input is appreciated -Sedation per pulmonary -Continue with solu Medrol 40 twice daily - ECHO 50-55 %. - GI Famotidine BID -DVT prophylaxis Lovenox Result Diagram: 02/21/19 0400 02/21/19 0400 Results 24hrs Laboratory Tests Test 02/20/19 17:34 02/20/19 21:17 02/21/19 01:30 02/21/19 04:00 Bedside Glucose 151 134 152 White Blood Count 13.3 H Red Blood Count 4.84 Hemoglobin 13.2 Hematocrit 43.0 Mean Corpuscular 88.8 Volume Mean Corpuscular 27.3 L Hemoglobin Mean Corpuscular 30.7 L Hemoglobin Concent Red Cell 19.1 H Distribution Width Platelet Count 190 Mean Platelet Volume 10.0 Immature 1.100 H Granulocytes % Neutrophils % 88.0 H Lymphocytes % 2.9 L Monocytes % 7.4 Eosinophils % 0.0 Basophils % 0.6 Nucleated Red Blood 0.0 Cells % Immature 0.150 H Granulocytes # Neutrophils # 11.7 H Lymphocytes # 0.4 L Monocytes # 1.0 H Eosinophils # 0.0 Basophils # 0.1 Nucleated Red Blood 0.0 Cells # Sodium Level 140 Potassium Level 4.0 Chloride Level 102 Carbon Dioxide Level 29 Anion Gap 9 Blood Urea Nitrogen 26 H Creatinine 0.74 Est Glomerular > 60 Filtrat Rate mL/min Glucose Level 164 Calcium Level 8.5 Phosphorus Level 3.3 Magnesium Level 2.4 Total Bilirubin 0.4 Direct Bilirubin 0.00 Indirect Bilirubin 0.4 Aspartate Amino 21 Transf (AST/SGOT) Alanine 34 Aminotransferase (AL T/SGPT) Alkaline Phosphatase 38 L Total Protein 6.3 Albumin 3.3 Globulin 3.00 Albumin/Globulin 1.10 Ratio Test 02/21/19 05:29 02/21/19 09:13 02/21/19 13:16 Bedside Glucose 193 179 167 Exam/Review of Systems Exam Vitals Vital Signs Date Temp Pulse Resp B/P (MAP) Pulse Ox O2 O2 Flow FiO2 Time Delivery Rate 02/21/19 100.5 15:26 02/21/19 75 20 105/56 99 14:30 (72) 02/21/19 Mechanica 11:00 l Ventilato r 02/21/19 40 05:32 Intake and Output 02/20/19 02/20/19 02/21/19 1414:59 22:59 06:59 IntakeIntake Total 492.616 ml 1066.744 ml 760.5 ml OutputOutput Total 1360 ml 510 ml 365 ml BalanceBalance -867.384 ml 556.744 ml 395.5 ml Results Result Diagram: 02/21/19 0400 02/21/19 0400 Results 24hrs Laboratory Tests Test 02/20/19 17:34 02/20/19 21:17 02/21/19 01:30 02/21/19 04:00 Bedside Glucose 151 134 152 White Blood Count 13.3 H Red Blood Count 4.84 Hemoglobin 13.2 Hematocrit 43.0 Mean Corpuscular 88.8 Volume Mean Corpuscular 27.3 L Hemoglobin Mean Corpuscular 30.7 L Hemoglobin Concent Red Cell 19.1 H Distribution Width Platelet Count 190 Mean Platelet Volume 10.0 Immature 1.100 H Granulocytes % Neutrophils % 88.0 H Lymphocytes % 2.9 L Monocytes % 7.4 Eosinophils % 0.0 Basophils % 0.6 Nucleated Red Blood 0.0 Cells % Immature 0.150 H Granulocytes # Neutrophils # 11.7 H Lymphocytes # 0.4 L Monocytes # 1.0 H Eosinophils # 0.0 Basophils # 0.1 Nucleated Red Blood 0.0 Cells # Sodium Level 140 Potassium Level 4.0 Chloride Level 102 Carbon Dioxide Level 29 Anion Gap 9 Blood Urea Nitrogen 26 H Creatinine 0.74 Est Glomerular > 60 Filtrat Rate mL/min Glucose Level 164 Calcium Level 8.5 Phosphorus Level 3.3 Magnesium Level 2.4 Total Bilirubin 0.4 Direct Bilirubin 0.00 Indirect Bilirubin 0.4 Aspartate Amino 21 Transf (AST/SGOT) Alanine 34 Aminotransferase (AL T/SGPT) Alkaline Phosphatase 38 L Total Protein 6.3 Albumin 3.3 Globulin 3.00 Albumin/Globulin 1.10 Ratio Test 02/21/19 05:29 02/21/19 09:13 02/21/19 13:16 Bedside Glucose 193 179 167 Medications Medication Current Medications IV Flush (NS 3 ml) 3 ml PER PROTOCOL IV ; Start 02/12/19 at 15:30 Ondansetron HCl (Zofran Inj) 4 mg Q6H PRN IV NAUSEA/VOMITING; Start 02/12/19 at 15:30 Acetaminophen (Tylenol Tab) 650 mg Q6H PRN PO .PAIN 1-3 OR TEMP Last administered on 02/21/19at 15:26; Admin Dose 650 MG; Start 02/12/19 at 15:30 Docusate Sodium (Colace) 100 mg Q12H PRN PO .CONSTIPATION Last administered on 02/21/19at 14:05; Admin Dose 100 MG; Start 02/12/19 at 15:30 Enoxaparin Sodium (Lovenox) 40 mg DAILY SC Last administered on 02/21/19at 09:19; Admin Dose 40 MG; Start 02/13/19 at 09:00 Vancomycin HCl (Vanco Iv Per Pharmacy) VANCOMYCIN PER PHARMACY PER PROTOCOL XX ; Start 02/12/19 at 15:30 Propofol 100 ml @ 3.027 mls/ hr Q12H IV Last administered on 02/21/19at 11:53; Admin Dose 9.686 MLS/HR; Start 02/13/19 at 00:30 Fentanyl 100 ml @ 2.5 mls/hr TITRATE IV Last administered on 02/20/19at 14:47; Admin Dose 2 MLS/HR; Start 02/13/19 at 12:00 Levothyroxine Sodium (Synthroid) 88 mcg BEFORE BREAKFAST PO Last administered on 02/21/19at 05:19; Admin Dose 88 MCG; Start 02/15/19 at 07:00 Miscellaneous Information 1 ea NOTE XX ; Start 02/14/19 at 10:30 Glucose (Glutose) 15 gm Q15M PRN PO DECREASED GLUCOSE; Start 02/14/19 at 10:30 Glucose (Glutose) 22.5 gm Q15M PRN PO DECREASED GLUCOSE; Start 02/14/19 at 10:30 Dextrose (D50w Syringe) 25 ml Q15M PRN IV DECREASED GLUCOSE; Start 02/14/19 at 10:30 Dextrose (D50w Syringe) 50 ml Q15M PRN IV DECREASED GLUCOSE; Start 02/14/19 at 10:30 Glucagon (Glucagen) 1 mg Q15M PRN IM DECREASED GLUCOSE; Start 02/14/19 at 10:30 Glucose (Glutose) 15 gm Q15M PRN BUCCAL DECREASED GLUCOSE; Start 02/14/19 at 10:30 Insulin Aspart (Novolog Insulin Pen) NOVOLOG *MILD* ALGORI... Q4 SC Last administered on 02/21/19at 13:19; Admin Dose 1 UNIT; Start 02/15/19 at 05:00 Midazolam HCl 50 ml @ 1 mls/hr TITRATE IV Last administered on 02/21/19at 02:42; Admin Dose 7 MLS/HR; Start 02/15/19 at 10:00 Docusate Sodium (Colace Liquid Cup) 100 mg BID NGT Last administered on 02/21/19at 09:14; Admin Dose 100 MG; Start 02/15/19 at 11:00 Bisacodyl (Dulcolax Supp) 10 mg DAILY PRN [place] CONSTIPATION Last administered on 02/21/19at 14:06; Admin Dose 10 MG; Start 02/15/19 at 11:00 Levofloxacin/ Dextrose 150 ml @ 100 mls/hr Q24H IVPB Last administered on 02/20/19at 15:44; Admin Dose 100 MLS/HR; Start 02/16/19 at 15:30 Famotidine (Pepcid) 20 mg Q12 NGT Last administered on 02/21/19at 09:15; Admin Dose 20 MG; Start 02/18/19 at 21:00 Furosemide (Lasix) 20 mg DAILY IV Last administered on 02/21/19at 09:15; Admin Dose 20 MG; Start 02/19/19 at 09:00 Methylprednisolone Sodium Succinate (Solu-Medrol) 40 mg Q12 IV Last administered on 02/21/19at 09:15; Admin Dose 40 MG; Start 02/18/19 at 21:00 IV Flush (NS 10 ml) 10 ml PRN PRN IV IV PROTOCOL; Start 02/18/19 at 15:30 Piperacillin Sod/ Tazobactam Sod 100 ml @ 200 mls/hr Q6 IVPB Last administered on 02/21/19at 11:36; Admin Dose 200 MLS/HR; Start 02/19/19 at 18:00 Fluconazole (Diflucan) 100 mg DAILY PO Last administered on 02/21/19at 09:15; Admin Dose 100 MG; Start 02/19/19 at 12:30 Vancomycin HCl 1.75 gm/Sodium Chloride 500 ml @ 125 mls/hr Q12H IVPB Last administered on 02/21/19at 05:19; Admin Dose 125 MLS/HR; Start 02/20/19 at 17:00 Miscellaneous Information (*Rx Drug Level Order Reminder*) VANCOMYCIN TROUGH LEVEL 0400 ONCE XX ; Start 02/22/19 at 04:00; Stop 02/22/19 at 04:01 Albuterol (Ventolin Hfa) 4 puff Q6H RESP THERAPY INH Last administered on 02/21/19at 13:14; Admin Dose 4 PUFF; Start 02/20/19 at 20:03 Ipratropium [place] (Atrovent Hfa) 4 puff Q6H RESP THERAPY INH Last administered on 02/21/19at 13:14; Admin Dose 4 PUFF; Start 02/20/19 at 20:04 LORNA LYONS MD 02/21/19 1615: Assessment/Plan Assessment/Plan Assessment/Plan seen and examined still fevers ? ct head and ct a+p not able to tolerate cpap Result Diagram: 02/21/19 0400 02/21/19 0400 CARY GIPSON Feb 21, 2019 16:00 LORNA LYONS MD Feb 21, 2019 16:15
[2019-02-21] MEDS: LEVOFLOXACIN 750MG/D5W (PMX) 150 ML IVPB SCH (16:38)
[2019-02-21] MEDS: FENTAnyl (DRIP) 1000 mcg/100mL 100 ML IV SCH (21:07)
[2019-02-22] VITALS (37 sets, daily range): BP systolic 93–119; BP diastolic 46–92; PULSE 63–95; RESP 20–26
[2019-02-22] MEDS: PIPER-TAZO 3.375 GM IV (PMX) 100 ML IVPB SCH ×5 (00:01→23:24)
[2019-02-22] MEDS: INSULIN ASPART [NOVOLOG] 3 ML PEN SC SCH ×6 (00:03→20:30)
[2019-02-22] MEDS: MIDAZOLAM (DRIP) 50 mg/50 mL 50 ML IV SCH ×3 (01:19→18:30)
[2019-02-22] MEDS: IPRATROPIUM (HFA) 12.9 GM INHALER INH SCH ×4 (01:27→19:31)
[2019-02-22] MEDS: ALBUTEROL HFA 8 GM INHALER INH SCH ×4 (01:27→19:31)
[2019-02-22] MEDS: LEVOTHYROXINE 88 MCG TAB PO SCH (05:20)
[2019-02-22] MEDS: VANCOMYCIN HCL 1.75 GM in SOD CHLORIDE 0.9% 500 ML IVPB SCH ×2 (05:20→18:22)
[2019-02-22] MEDS: PROPOFOL 100 ML IV SCH ×2 (09:36→19:13)
[2019-02-22] MEDS: FAMOTIDINE 20 MG TAB NGT SCH ×2 (11:15→20:28)
[2019-02-22] MEDS: FLUCONAZOLE 100 MG TAB PO SCH (11:15)
[2019-02-22] MEDS: DOCUSATE SODIUM 10 MG/ML (10ML CUP) NGT SCH ×2 (11:15→20:28)
[2019-02-22] MEDS: ENOXAPARIN 40 MG/0.4 ML SYG SC SCH (11:16)
[2019-02-22] MEDS: METHYLPREDNISOLONE 40 MG INJ IV SCH ×2 (11:17→20:28)
[2019-02-22] MEDS: FUROSEMIDE 20 MG INJ IV SCH ×2 (11:17→17:27)
--- NOTE | 2019-02-22 12:54 | PN ---
DATE: 02/22/2019 PULMONARY FOLLOWUP SUBJECTIVE: Chart reviewed. The patient currently orally intubated and sedated. On 40% FIO2, satur ating 99% and does not appear in acute distress. The patient is scheduled for a CT scan of the abdom en today. PHYSICAL EXAMINATION: VITAL SIGNS: Blood pressure 98/49, pulse 74, respirations 21, temperature 100. HEENT: Pupils are equal and reactive to light, orally intubated. NECK: Supple, no JVD noted, no cervical adenopathy noted. LUNGS: Decreased breath sounds at the bases, left greater than right. CARDIOVASCULAR: S1, S2 normal. ABDOMEN: Soft, nontender, distended. EXTREMITIES: No clubbing or cyanosis noted. Pedal edema present. NEUROLOGIC: Currently sedated. LABORATORY DATA: No new labs. IMPRESSION: 1. Acute respiratory failure. 2. Pneumonia. 3. History of Down syndrome. 4. History of hypothyroidism. 5. Congestive heart failure. RECOMMENDATIONS 1. Continue ventilator support. 2. Continue antibiotics. 3. Await CT scan of abdomen. 4. Discussed with the staff. Dictated By: KENNA ORTEGA MD, MA/MICHAEL Conf#: [id number] DID#: [id number] CC: LORNA LYONS; ЕКАТЕРИНА JIMENEZ MD;*[facility]*
--- NOTE | 2019-02-22 12:56 | CONS ---
Assessment/Plan Assessment/Plan Hospital Course (Demo Recall) IMPRESSION: 1. Congestive heart failure-diastolic acute on chronic 2. Lower extremity edema, assess for congestive heart failure.-preserved EF 3. Tachycardia, improved, status post intubation, likely due to respiratory distress. 4. Abnormal electrocardiogram with right axis deviation and T-wave flattening. -neg trop x 3 5. Down syndrome. 6. Hypothyroidism. 7. Diabetes mellitus. 8. Obstructive sleep apnea. 9. hypotension-remains borderline but stable relatively 10. Resp failure s/p intubation 11.encephalopathy 12. Fevers Recc: -ICU -Continue lasix diuresisand consider slight increase and follow volume status closely -Contineu abx's and f/u cx data -Continue steroids and bronchodilators -Wean vent as tolerated s/p attempted wean yesterday unsuccessful Consultation Date/Type/Reason Admit Date/Time Feb 12, 2019 at 12:24 Initial Consult Date 02/12/19 Type of Consult Cardiology Reason for Consultation CHF Requesting Provider: LORNA LYONS MD Date/Time of Note DATE: 02/22/19 TIME: 12:51 Exam/Review of Systems Vital Signs Vitals Vital Signs Date Temp Pulse Resp B/P (MAP) Pulse Ox O2 O2 Flow FiO2 Time Delivery Rate 02/22/19 78 20 97 40 11:10 02/22/19 98/49 (65) 08:30 02/22/19 100.0 08:00 02/21/19 Mechan[place] 11:00 l Ventilato r Intake and Output 02/21/19 02/21/19 02/22/19 1515:00 23:00 07:00 IntakeIntake Total 1039.116 ml 1417.230 ml 667.9 ml OutputOutput Total 1500 ml 455 ml 390 ml BalanceBalance -460.884 ml 962.230 ml 277.9 ml Exam Exam Review of Systems: CONSTITUTIONAL: No fevers, chills. PULMONARY: intubated CARDIOVASCULAR: No chest pain/palpitations GASTROINTESTINAL: No nausea/vomiting. GENITOURINARY: No hematuria/dysuria. MUSCULOSKELETAL: No myagias/arthalgias. PSYCHIATRIC: The patient denies depression. NEUROLOGIC: sedated Constitutional: other (sedatede) Head: normocephalic ENMT: intubated Neck: supple, jvd (9 cm water) Respiratory: diminished breath sounds (at bases/B) Cardiovascular: regular rate and rhythm Gastrointestinal: soft, non-tender Musculoskeletal: muscle weakness (generalizd mild) Extremities: edema (trace/B) Neurological: other (sedated) Labs Result Diagram: 02/21/19 0400 02/21/19 0400 Results 24hrs Laboratory Tests Test 02/21/19 13:16 02/21/19 20:51 02/22/19 00:03 02/22/19 04:00 Bedside Glucose 167 126 139 Vancomycin Level 12.4 Trough Test 02/22/19 05:25 02/22/19 11:14 Bedside Glucose 143 112 Medications Medications Current Medications IV Flush (NS 3 ml) 3 ml PER PROTOCOL IV ; Start 02/12/19 at 15:30 Ondansetron HCl (Zofran Inj) 4 mg Q6H PRN IV NAUSEA/VOMITING; Start 02/12/19 at 15:30 Acetaminophen (Tylenol Tab) 650 mg Q6H PRN PO .PAIN 1-3 OR TEMP Last admini stered on 02/21/19at 15:26; Admin Dose 650 MG; Start 02/12/19 at 15:30 Docusate Sodium (Colace) 100 mg Q12H PRN PO .CONSTIPATION Last administered on 02/21/19 14:05; Admin Dose 100 MG; Start 02/12/19 at 15:30 Enoxaparin Sodium (Lovenox) 40 mg DAILY SC Last administered on 02/22/19 11:16; Admin Dose 40 MG; Start 02/13/19 at 09:00 Vancomycin HCl (Vanco Iv Per Pharmacy) VANCOMYCIN PER PHARMACY PER PROTOCOL XX ; Start 02/12/19 at 15:30 Propofol 100 ml @ 3.027 mls/ hr Q12H IV Last administered on 02/22/19 09:36; Admin Dose 9.686 MLS/HR; Start 02/13/19 at 00:30 Fentanyl 100 ml @ 2.5 mls/hr TITRATE IV Last administered on 02/21/19 21:07; Admin Dose 3 MLS/HR; Start 02/13/19 at 12:00 Levothyroxine Sodium (Synthroid) 88 mcg BEFORE BREAKFAST PO Last administered on 02/22/19 05:20; Admin Dose 88 MCG; Start 02/15/19 at 07:00 Miscellaneous Information 1 ea NOTE XX ; Start 02/14/19 at 10:30 Glucose (Glutose) 15 gm Q15M PRN PO DECREASED GLUCOSE; Start 02/14/19 at 10:30 Glucose (Glutose) 22.5 gm Q15M PRN PO DECREASED GLUCOSE; Start 02/14/19 at 10:30 Dextrose (D50w Syringe) 25 ml Q15M PRN IV DECREASED GLUCOSE; Start 02/14/19 at 10:30 Dextrose (D50w Syringe) 50 ml Q15M PRN IV DECREASED GLUCOSE; Start 02/14/19 at 10:30 Glucagon (Glucagen) 1 mg Q15M PRN IM DECREASED GLUCOSE; Start 02/14/19 at 10:30 Glucose (Glutose) 15 gm Q15M PRN BUCCAL DECREASED GLUCOSE; Start 02/14/19 at 10:30 Insulin Aspart (Novolog Insulin Pen) NOVOLOG *MILD* ALGORI... Q4 SC Last administered on 02/22/19 05:30; Admin Dose 1 UNIT; Start 02/15/19 at 05:00 Midazolam HCl 50 ml @ 1 mls/hr TITRATE IV Last administered on 02/22/19at 09:37; Admin Dose 7 MLS/HR; Start 02/15/19 at 10:00 Docusate Sodium (Colace Liquid Cup) 100 mg BID NGT Last administered on 02/22/19 11:15; Admin Dose 100 MG; Start 02/15/19 at 11:00 Bisacodyl (Dulcolax Supp) 10 mg DAILY PRN [place] CONSTIPATION Last administered on 02/21/19 14:06; Admin Dose 10 MG; Start 02/15/19 at 11:00 Levofloxacin/ Dextrose 150 ml @ 100 mls/hr Q24H IVPB Last administered on 02/21/19 16:38; Admin Dose 100 MLS/HR; Start 02/16/19 at 15:30 Famotidine (Pepcid) 20 mg Q12 NGT Last administered on 02/22/19 11:15; Admin Dose 20 MG; Start 02/18/19 at 21:00 Furosemide (Lasix) 20 mg DAILY IV Last administered on 02/22/19 11:17; Admin Dose 20 MG; Start 02/19/19 at 09:00 IV Flush (NS 10 ml) 10 ml PRN PRN IV IV PROTOCOL; Start 02/18/19 at 15:30 Piperacillin Sod/ Tazobactam Sod 100 ml @ 200 mls/hr Q6 IVPB Last administered on 02/22/19at 05:20; Admin Dose 200 MLS/HR; Start 02/19/19 at 18:00 Fluconazole (Diflucan) 100 mg DAILY PO Last administered on 02/22/19at 11:15; Ad min Dose 100 MG; Start 02/19/19 at 12:30 Vancomycin HCl 1.75 gm/Sodium Chloride 500 ml @ 125 mls/hr Q12H IVPB Last administered on 02/22/19 05:20; Admin Dose 125 MLS/HR; Start 02/20/19 at 17:00 Albuterol (Ventolin Hfa) 4 puff Q6H RESP THERAPY INH Last administered on 02/22/19at 09:19; Admin Dose 4 PUFF; Start 02/20/19 at 20:03 Ipratropium [place] (Atrovent Hfa) 4 puff Q6H RESP THERAPY INH Last administered on 02/22/19at 09:19; Admin Dose 4 PUFF; Start 02/20/19 at 20:04 Methylprednisolone Sodium Succinate (Solu-Medrol) 30 mg Q12 IV Last administered on 02/22/19 11:17; Admin Dose 30 MG; Start 02/21/19 at 21:00 SHARIF TORRES Feb 22, 2019 12:56
[2019-02-22] MEDS ORDERED: IOHEXOL 300MG/ML 150 ML BTL ONE (13:47)
[2019-02-22] MEDS ORDERED: SOD CHLORIDE 0.9% 100 ML ONE (13:47)
--- NOTE | 2019-02-22 14:03 | CONS ---
Assessment/Plan Assessment/Plan Hospital Course (Demo Recall) No acute events patient is comfortable on vent still with low-grade fevers T-max yesterday was 100.5 T-current 99.8. Mother at bedside. No labs today. Indwelling: Endotracheal tube, NG tube, PICC line, Nelson Antimicrobials: Zosyn fluconazole vancomycin Levaquin Microbiology: Endotracheal aspirate growing staph aureus, blood and urine culture since admission negative Physical examination: Obese well-developed middle-aged woman who is intubated sedated in no distress. Head atraumatic normocephalic neck is obese short, chest rise symmetrical breath sounds diminished bases. Heart: S1-S2. Abdomen soft bowel sounds present. Extremities without cyanosis Assessment: 1. Sepsis with ongoing fevers likely 2 to #2 2. Bilateral multifocal pneumonia 3. Acute respiratory failure 4. Diabetes 5. Morbid obesity 6. Down syndrome Plan: Remains unchanged, continue present care and antibiotics, vent management per pulmonary Consultation Date/Type/Reason Admit Date/Time Feb 12, 2019 at 12:24 Initial Consult Date Type of Consult id Requesting Provider: LORNA LYONS MD Date/Time of Note DATE: 02/22/19 TIME: 14:02 Exam/Review of Systems Exam Vitals Vital Signs Date Temp Pulse Resp B/P (MAP) Pulse Ox O2 O2 Flow FiO2 Time Delivery Rate 02/22/19 63 12:00 02/22/19 99.8 12:00 02/22/19 20 103/58 97 12:00 (73) 02/22/19 40 11:10 02/21/19 Mechanical 11:00 Ventilator Intake and Output 02/21/19 02/21/19 02/22/19 1515:00 23:00 07:00 IntakeIntake Total 1039.116 ml 1417.230 ml 687.58 ml OutputOutput Total 1500 ml 455 ml 390 ml BalanceBalance -460.884 ml 962.230 ml 297.58 ml Results Result Diagram: 02/21/19 0400 02/21/19 0400 Results 24hrs Laboratory Tests Test 02/21/19 20:51 02/22/19 00:03 02/22/19 04:00 02/22/19 05:25 Bedside Glucose 126 139 143 Vancomycin Level 12.4 Trough Test 02/22/19 11:14 02/22/19 13:19 Bedside Glucose 112 141 Medications Medication Current Medications IV Flush (NS 3 ml) 3 ml PER PROTOCOL IV ; Start 02/12/19 at 15:30 Ondansetron HCl (Zofran Inj) 4 mg Q6H PRN IV NAUSEA/VOMITING; Start 02/12/19 at 15:30 Acetaminophen (Tylenol Tab) 650 mg Q6H PRN PO .PAIN 1-3 OR TEMP Last administered on 02/21/19at 15:26; Admin Dose 650 MG; Start 02/12/19 at 15:30 Docusate Sodium (Colace) 100 mg Q12H PRN PO .CONSTIPATION Last administered on 02/21/19at 14:05; Admin Dose 100 MG; Start 02/12/19 at 15:30 Enoxaparin Sodium (Lovenox) 40 mg DAILY SC Last administered on 02/22/19at 11:16; Admin Dose 40 MG; Start 02/13/19 at 09:00 Vancomycin HCl (Vanco Iv Per Pharmacy) VANCOMYCIN PER PHARMACY PER PROTOCOL XX ; Start 02/12/19 at 15:30 Propofol 100 ml @ 3.027 mls/ hr Q12H IV Last administered on 02/22/19at 09:36; Admin Dose 9.686 MLS/HR; Start 02/13/19 at 00:30 Fentanyl 100 ml @ 2.5 mls/hr TITRATE IV Last administered on 02/21/19at 21:07; Admin Dose 3 MLS/HR; Start 02/13/19 at 12:00 Levothyroxine Sodium (Synthroid) 88 mcg BEFORE BREAKFAST PO Last administered on 02/22/19at 05:20; Admin Dose 88 MCG; Start 02/15/19 at 07:00 Miscellaneous Information 1 ea NOTE XX ; Start 02/14/19 at 10:30 Glucose (Glutose) 15 gm Q15M PRN PO DECREASED GLUCOSE; Start 02/14/19 at 10:30 Glucose (Glutose) 22.5 gm Q15M PRN PO DECREASED GLUCOSE; Start 02/14/19 at 10:30 Dextrose (D50w Syringe) 25 ml Q15M PRN IV DECREASED GLUCOSE; Start 02/14/19 at 10:30 Dextrose (D50w Syringe) 50 ml Q15M PRN IV DECREASED GLUCOSE; Start 02/14/19 at 10:30 Glucagon (Glucagen) 1 mg Q15M PRN IM DECREASED GLUCOSE; Start 02/14/19 at 10:30 Glucose (Glutose) 15 gm Q15M PRN BUCCAL DECREASED GLUCOSE; Start 02/14/19 at 10: 30 Insulin Aspart (Novolog Insulin Pen) NOVOLOG *MILD* ALGORI... Q4 SC Last administered on 02/22/19 13:24; Admin Dose 1 UNIT; Start 02/15/19 at 05:00 Midazolam HCl 50 ml @ 1 mls/hr TITRATE IV Last administered on 02/22/19 09:37; Admin Dose 7 MLS/HR; Start 02/15/19 at 10:00 Docusate Sodium (Colace Liquid Cup) 100 mg BID NGT Last administered on 02/22/19 11:15; Admin Dose 100 MG; Start 02/15/19 at 11:00 Bisacodyl (Dulcolax Supp) 10 mg DAILY PRN [place] CONSTIPATION Last administered on 02/21/19 14:06; Admin Dose 10 MG; Start 02/15/19 at 11:00 Levofloxacin/ Dextrose 150 ml @ 100 mls/hr Q24H IVPB Last administered on 02/21/19 16:38; Admin Dose 100 MLS/HR; Start 02/16/19 at 15:30 Famotidine (Pepcid) 20 mg Q12 NGT Last administered on 02/22/19 11:15; Admin Dose 20 MG; Start 02/18/19 at 21:00 IV Flush (NS 10 ml) 10 ml PRN PRN IV IV PROTOCOL; Start 02/18/19 at 15:30 Piperacillin Sod/ Tazobactam Sod 100 ml @ 200 mls/hr Q6 IVPB Last administered on 02/22/19 12:58; Admin Dose 200 MLS/HR; Start 02/19/19 at 18:00 Fluconazole (Diflucan) 100 mg DAILY PO Last administered on 02/22/19 11:15; Admin Dose 100 MG; Start 02/19/19 at 12:30 Vancomycin HCl 1.75 gm/Sodium Chloride 500 ml @ 125 mls/hr Q12H IVPB Last administered on 02/22/19 05:20; Admin Dose 125 MLS/HR; Start 02/20/19 at 17:00 Albuterol (Ventolin Hfa) 4 puff Q6H RESP THERAPY INH Last administered on 02/22/19 13:26; Admin Dose 4 PUFF; Start 02/20/19 at 20:03 Ipratropium [place] (Atrovent Hfa) 4 puff Q6H RESP THERAPY INH Last administered on 02/22/19 13:25; Admin Dose 4 PUFF; Start 02/20/19 at 20:04 Methylprednisolone Sodium Succinate (Solu-Medrol) 30 mg Q12 IV Last administered on 02/22/19 11:17; Admin Dose 30 MG; Start 02/21/19 at 21:00 Furosemide (Lasix) 20 mg BID DIURETICS IV ; Start 02/22/19 at 18:00 RUDOLPH YOON NP Feb 22, 2019 14:03
--- NOTE | 2019-02-22 14:54 | PN ---
Date/Time of Note Date/Time of Note DATE: 02/22/19 TIME: 14:51 Assessment/Plan VTE Prophylaxis Risk score (from Ns)>0 risk: 5 SCD applied (from Ns): Yes Pharmacological prophylaxis: LMWH Lines/Catheters IV Catheter Type (from Nrsg): PICC Line Central line still needed: Yes Urinary Cath still in place: Yes Reason Cath still needed: urinary retention Assessment/Plan Hospital Course 1. Severe altered mental status likely secondary to metabolic encephalopathy, likely secondary to CO2 narcosis. The patient is also on antidepressants and loxapine at home. Surprisingly on ABG CO2 levels were not high 2. Hypoxic respiratory failure s/p intubation secondary to pneumonia/CHF 3. Lactic acidosis. Respiratory acidosis. 4. Morbid obesity. 5. Down syndrome. 6. Hypertension. 7. Diabetes. 8. History of ventral hernia repair. 9. Leukocytosis secondary to pneumonia 10. Hypothyroidism 11. KIRIT, more likely due to sepsis Assessment/Plan -BM yesterday - no CPAP trail today - Monitor WBC - ct head and ct a+p today - cw with Lasix 20 - fi02 40 -c/w tube feed -Vent management per pulmonary. -cardiology input is appreciated -Sedation per pulmonary -Continue with solu Medrol 30 twice daily - GI Famotidine BID -DVT prophylaxis Lovenox Result Diagram: 02/21/19 0400 02/21/19 0400 Results 24hrs Laboratory Tests Test 02/21/19 20:51 02/22/19 00:03 02/22/19 04:00 02/22/19 05:25 Bedside Glucose 126 139 143 Vancomycin Level 12.4 Trough Test 02/22/19 11:14 02/22/19 13:19 Bedside Glucose 112 141 Subjective 24 Hr Interval Summary Subjective hx not possible: pt non-verbal, pt critical status Exam/Review of Systems Exam Vitals Vital Signs Date Temp Pulse Resp B/P (MAP) Pulse Ox O2 O2 Flow FiO2 Time Delivery Rate 02/22/19 63 12:00 02/22/19 99.8 12:00 02/22/19 20 103/58 97 12:00 (73) 02/22/19 40 11:10 02/21/19 Mechanical 11:00 Ventilator Intake and Output 02/21/19 02/21/19 02/22/19 1515:00 23:00 07:00 IntakeIntake Total 1039.116 ml 1417.230 ml 687.58 ml OutputOutput Total 1500 ml 455 ml 390 ml BalanceBalance -460.884 ml 962.230 ml 297.58 ml Exam orally intubated Constitutional: non-verbal Head: normocephalic Eyes: nl conjunctiva Neck: supple Respiratory: diminished breath sounds Cardiovascular: regular rate and rhythm Gastrointestinal: soft Results Results 24hrs Laboratory Tests Test 02/21/19 20:51 02/22/19 00:03 02/22/19 04:00 02/22/19 05:25 Bedside Glucose 126 139 143 Vancomycin Level 12.4 Trough Test 02/22/19 11:14 02/22/19 13:19 Bedside Glucose 112 141 Medications Medication Current Medications IV Flush (NS 3 ml) 3 ml PER PROTOCOL IV ; Start 02/12/19 at 15:30 Ondansetron HCl (Zofran Inj) 4 mg Q6H PRN IV NAUSEA/VOMITING; Start 02/12/19 at 15:30 Acetaminophen (Tylenol Tab) 650 mg Q6H PRN PO .PAIN 1-3 OR TEMP Last administered on 02/21/19at 15:26; Admin Dose 650 MG; Start 02/12/19 at 15:30 Docusate Sodium (Colace) 100 mg Q12H PRN PO .CONSTIPATION Last administered on 02/21/19 14:05; Admin Dose 100 MG; Start 02/12/19 at 15:30 Enoxaparin Sodium (Lovenox) 40 mg DAILY SC Last administered on 02/22/19 11:16; Admin Dose 40 MG; Start 02/13/19 at 09:00 Vancomycin HCl (Vanco Iv Per Pharmacy) VANCOMYCIN PER PHARMACY PER PROTOCOL XX ; Start 02/12/19 at 15:30 Propofol 100 ml @ 3.027 mls/ hr Q12H IV Last administered on 02/22/19 09:36; Admin Dose 9.686 MLS/HR; Start 02/13/19 at 00:30 Fentanyl 100 ml @ 2.5 mls/hr TITRATE IV Last administered on 02/21/19 21:07; Admin Dose 3 MLS/HR; Start 02/13/19 at 12:00 Levothyroxine Sodium (Synthroid) 88 mcg BEFORE BREAKFAST PO Last administered on 02/22/19 05:20; Admin Dose 88 MCG; Start 02/15/19 at 07:00 Miscellaneous Information 1 ea NOTE XX ; Start 02/14/19 at 10:30 Glucose (Glutose) 15 gm Q15M PRN PO DECREASED GLUCOSE; Start 02/14/19 at 10:30 Glucose (Glutose) 22.5 gm Q15M PRN PO DECREASED GLUCOSE; Start 02/14/19 at 10:30 Dextrose (D50w Syringe) 25 ml Q15M PRN IV DECREASED GLUCOSE; Start 02/14/19 at 10:30 Dextrose (D50w Syringe) 50 ml Q15M PRN IV DECREASED GLUCOSE; Start 02/14/19 at 10:30 Glucagon (Glucagen) 1 mg Q15M PRN IM DECREASED GLUCOSE; Start 02/14/19 at 10:30 Glucose (Glutose) 15 gm Q15M PRN BUCCAL DECREASED GLUCOSE; Start 02/14/19 at 10:30 Insulin Aspart (Novolog Insulin Pen) NOVOLOG *MILD* ALGORI... Q4 SC Last administered on 02/22/19at 13:24; Admin Dose 1 UNIT; Start 02/15/19 at 05:00 Midazolam HCl 50 ml @ 1 mls/hr TITRATE IV Last administered on 02/22/19at 09:37; Admin Dose 7 MLS/HR; Start 02/15/19 at 10:00 Docusate Sodium (Colace Liquid Cup) 100 mg BID NGT Last administered on 02/22/19at 11:15; Admin Dose 100 MG; Start 02/15/19 at 11:00 Bisacodyl (Dulcolax Supp) 10 mg DAILY PRN [place] CONSTIPATION Last administered on 02/21/19at 14:06; Admin Dose 10 MG; Start 02/15/19 at 11:00 Levofloxacin/ Dextrose 150 ml @ 100 mls/hr Q24H IVPB Last administered on 02/21at 16:38; Admin Dose 100 MLS/HR; Start 02/16/19 at 15:30 Famotidine (Pepcid) 20 mg Q12 NGT Last administered on 02/22/19at 11:15; Admin Dose 20 MG; Start 02/18/19 at 21:00 IV Flush (NS 10 ml) 10 ml PRN PRN IV IV PROTOCOL; Start 02/18/19 at 15:30 Piperacillin Sod/ Tazobactam Sod 100 ml @ 200 mls/hr Q6 IVPB Last administered on 02/22/19 12:58; Admin Dose 200 MLS/HR; Start 02/19/19 at 18:00 Fluconazole (Diflucan) 100 mg DAILY PO Last administered on 02/22/19 11:15; Admin Dose 100 MG; Start 02/19/19 at 12:30 Vancomycin HCl 1.75 gm/Sodium Chloride 500 ml @ 125 mls/hr Q12H IVPB Last administered on 02/22/19 05:20; Admin Dose 125 MLS/HR; Start 02/20/19 at 17:00 Albuterol (Ventolin Hfa) 4 puff Q6H RESP THERAPY INH Last administered on 02/22/19 13:26; Admin Dose 4 PUFF; Start 02/20/19 at 20:03 Ipratropium [place] (Atrovent Hfa) 4 puff Q6H RESP THERAPY INH Last administered on 02/22/19 13:25; Admin Dose 4 PUFF; Start 02/20/19 at 20:04 Methylprednisolone Sodium Succinate (Solu-Medrol) 30 mg Q12 IV Last administered on 02/22/19 11:17; Admin Dose 30 MG; Start 02/21/19 at 21:00 Furosemide (Lasix) 20 mg BID DIURETICS IV ; Start 02/22/19 at 18:00 CARY GIPSON Feb 22, 2019 14:54
[2019-02-22] MEDS: LEVOFLOXACIN 750MG/D5W (PMX) 150 ML IVPB SCH (16:15)
[2019-02-22] MEDS: ACETAMINOPHEN 325 MG TAB PO PRN ×2 (17:26→23:24)
[2019-02-23] VITALS (51 sets, daily range): BP systolic 88–157; BP diastolic 45–89; PULSE 58–91; RESP 18–23
[2019-02-23] MEDS: INSULIN ASPART [NOVOLOG] 3 ML PEN SC SCH ×6 (01:00→20:36)
[2019-02-23] MEDS: IPRATROPIUM (HFA) 12.9 GM INHALER INH SCH ×4 (01:52→20:51)
[2019-02-23] MEDS: ALBUTEROL HFA 8 GM INHALER INH SCH ×4 (01:52→20:51)
[2019-02-23] MEDS: MIDAZOLAM (DRIP) 50 mg/50 mL 50 ML IV SCH ×3 (02:33→19:30)
[2019-02-23] MEDS: VANCOMYCIN HCL 1.75 GM in SOD CHLORIDE 0.9% 500 ML IVPB SCH (04:17)
[2019-02-23] MEDS: PIPER-TAZO 3.375 GM IV (PMX) 100 ML IVPB SCH ×2 (05:10→13:18)
[2019-02-23] MEDS: FUROSEMIDE 20 MG INJ IV SCH ×2 (05:10→17:14)
[2019-02-23] MEDS: PROPOFOL 100 ML IV SCH ×3 (05:22→22:01)
[2019-02-23] MEDS: FENTAnyl (DRIP) 1000 mcg/100mL 100 ML IV SCH (06:02)
[2019-02-23] MEDS: LEVOTHYROXINE 88 MCG TAB PO SCH (06:30)
[2019-02-23] MEDS: FLUCONAZOLE 100 MG TAB PO SCH (09:06)
[2019-02-23] MEDS: METHYLPREDNISOLONE 40 MG INJ IV SCH ×2 (09:06→20:38)
[2019-02-23] MEDS: DOCUSATE SODIUM 10 MG/ML (10ML CUP) NGT SCH ×2 (09:06→20:36)
[2019-02-23] MEDS: FAMOTIDINE 20 MG TAB NGT SCH ×2 (09:06→20:37)
[2019-02-23] MEDS: ENOXAPARIN 40 MG/0.4 ML SYG SC SCH (09:10)
--- NOTE | 2019-02-23 13:39 | PN ---
Date/Time of Note Date/Time of Note DATE: 02/23/19 TIME: 13:37 Assessment/Plan VTE Prophylaxis Risk score (from Ns)>0 risk: 13 SCD applied (from Ns): Yes Pharmacological prophylaxis: LMWH Lines/Catheters IV Catheter Type (from Nrs): PICC Line Central line still needed: Yes Urinary Cath still in place: Yes Reason Cath still needed: urinary retention Assessment/Plan Hospital Course 1. Severe altered mental status likely secondary to metabolic encephalopathy, likely secondary to CO2 narcosis. The patient is also on antidepressants and loxapine at home. Surprisingly on ABG CO2 levels were not high 2. Hypoxic respiratory failure s/p intubation secondary to pneumonia/CHF 3. Lactic acidosis. Respiratory acidosis. 4. Morbid obesity. 5. Down syndrome. 6. Hypertension. 7. Diabetes. 8. History of ventral hernia repair. 9. Leukocytosis secondary to pneumonia 10. Hypothyroidism 11. KIRIT, more likely due to sepsis Assessment/Plan - no CPAP trail today again - Monitor WBC - cw with Lasix 20 - fi02 40 -c/w tube feed -Vent management per pulmonary. -cardiology input is appreciated -Sedation per pulmonary -Continue with solu Medrol 30 twice daily - GI Famotidine BID -DVT prophylaxis Lovenox Result Diagram: 02/23/19 0500 02/23/19 0500 Results 24hrs Laboratory Tests Test 02/22/19 17:32 02/22/19 20:29 02/23/19 01:03 02/23/19 04:29 Bedside Glucose 169 165 137 143 Test 02/23/19 05:00 02/23/19 09:08 02/23/19 13:14 White Blood Count 11.5 H Red Blood Count 4.89 Hemoglobin 13.1 Hematocrit 43.4 Mean Corpuscular 88.8 Volume Mean Corpuscular 26.8 L Hemoglobin Mean Corpuscular 30.2 L Hemoglobin Concent Red Cell 19.7 H Distribution Width Platelet Count 241 # Mean Platelet Volume 9.8 Immature 1.600 H Granulocytes % Neutrophils % 83.0 H Lymphocytes % 5.1 L Monocytes % 9.9 Eosinophils % 0.0 Basophils % 0.4 Nucleated Red Blood 0.0 Cells % Immature 0.180 H Granulocytes # Neutrophils # 9.6 H Lymphocytes # 0.6 L Monocytes # 1.1 H Eosinophils # 0.0 Basophils # 0.1 Nucleated Red Blood 0.0 Cells # Sodium Level 137 Potassium Level 4.2 Chloride Level 100 Carbon Dioxide Level 30 Anion Gap 7 Blood Urea Nitrogen 25 H Creatinine 0.67 Est Glomerular > 60 Filtrat Rate mL/min Glucose Level 156 Calcium Level 8.7 Bedside Glucose 172 158 Subjective 24 Hr Interval Summary Free Text/Dictation orally intubated Subjective hx not possible: pt non-verbal, pt critical status Exam/Review of Systems Exam Vitals Vital Signs Date Temp Pulse Resp B/P (MAP) Pulse Ox O2 O2 Flow FiO2 Time Delivery Rate 02/23/19 40 12:00 02/23/19 98.4 60 20 104/57 100 Mechanical 12:00 (73) Ventilator Intake and Output 02/22/19 02/22/19 02/23/19 1515:00 23:00 07:00 IntakeIntake Total 1139.44 ml 836.478 ml 1073.128 ml OutputOutput Total 1150 ml 1475 ml 1355 ml BalanceBalance -10.56 ml -638.522 ml -281.872 ml Constitutional: non-verbal, obese Neck: supple Respiratory: diminished breath sounds Cardiovascular: regular rate and rhythm Gastrointestinal: soft Musculoskeletal: swelling; No nl extremities to inspection, No nl gait and stance, No joint tenderness, No muscle tone, No muscle weakness, No range of motion, No spine non-tender, No other Results Results 24hrs Laboratory Tests Test 02/22/19 17:32 02/22/19 20:29 02/23/19 01:03 02/23/19 04:29 Bedside Glucose 169 165 137 143 Test 02/23/19 05:00 02/23/19 09:08 02/23/19 13:14 White Blood Count 11.5 H Red Blood Count 4.89 Hemoglobin 13.1 Hematocrit 43.4 Mean Corpuscular 88.8 Volume Mean Corpuscular 26.8 L Hemoglobin Mean Corpuscular 30.2 L Hemoglobin Concent Red Cell 19.7 H Distribution Width Platelet Count 241 # Mean Platelet Volume 9.8 Immature 1.600 H Granulocytes % Neutrophils % 83.0 H Lymphocytes % 5.1 L Monocytes % 9.9 Eosinophils % 0.0 Basophils % 0.4 Nucleated Red Blood 0.0 Cells % Immature 0.180 H Granulocytes # Neutrophils # 9.6 H Lymphocytes # 0.6 L Monocytes # 1.1 H Eosinophils # 0.0 Basophils # 0.1 Nucleated Red Blood 0.0 Cells # Sodium Level 137 Potassium Level 4.2 Chloride Level 100 Carbon Dioxide Level 30 Anion Gap 7 Blood Urea Nitrogen 25 H Creatinine 0.67 Est Glomerular > 60 Filtrat Rate mL/min Glucose Level 156 Calcium Level 8.7 Bedside Glucose 172 158 Medications Medication Current Medications IV Flush (NS 3 ml) 3 ml PER PROTOCOL IV ; Start 02/12/19 at 15:30 Ondansetron HCl (Zofran Inj) 4 mg Q6H PRN IV NAUSEA/VOMITING; Start 02/12/19 at 15:30 Acetaminophen (Tylenol Tab) 650 mg Q6H PRN PO .PAIN 1-3 OR TEMP Last administered on 02/22/19 23:24; Admin Dose 650 MG; Start 02/12/19 at 15:30 Docusate Sodium (Colace) 100 mg Q12H PRN PO .CONSTIPATION Last administered on 02/21/19at 14:05; Admin Dose 100 MG; Start 02/12/19 at 15:30 Enoxaparin Sodium (Lovenox) 40 mg DAILY SC Last administered on 02/23/19at 09:10; Admin Dose 40 MG; Start 02/13/19 at 09:00 Vancomycin HCl (Vanco Iv Per Pharmacy) VANCOMYCIN PER PHARMACY PER PROTOCOL XX ; Start 02/12/19 at 15:30 Propofol 100 ml @ 3.027 mls/ hr Q12H IV Last administered on 02/23/19 13:18; Admin Dose 9.686 MLS/HR; Start 02/13/19 at 00:30 Fentanyl 100 ml @ 2.5 mls/hr TITRATE IV Last administered on 02/23/19at 06:02; Admin Dose 3 MLS/HR; Start 02/13/19 at 12:00 Levothyroxine Sodium (Synthroid) 88 mcg BEFORE BREAKFAST PO Last administered on 02/23/19 06:30; Admin Dose 88 MCG; Start 02/15/19 at 07:00 Miscellaneous Information 1 ea NOTE XX ; Start 02/14/19 at 10:30 Glucose (Glutose) 15 gm Q15M PRN PO DECREASED GLUCOSE; Start 02/14/19 at 10:30 Glucose (Glutose) 22.5 gm Q15M PRN PO DECREASED GLUCOSE; Start 02/14/19 at 10:30 Dextrose (D50w Syringe) 25 ml Q15M PRN IV DECREASED GLUCOSE; Start 02/14/19 at 10:30 Dextrose (D50w Syringe) 50 ml Q15M PRN IV DECREASED GLUCOSE; Start 02/14/19 at 10:30 Glucagon (Glucagen) 1 mg Q15M PRN IM DECREASED GLUCOSE; Start 02/14/19 at 10:30 Glucose (Glutose) 15 gm Q15M PRN BUCCAL DECREASED GLUCOSE; Start 02/14/19 at 10:30 Insulin Aspart (Novolog Insulin Pen) NOVOLOG *MILD* ALGORI... Q4 SC Last a dministered on 02/23/19 13:21; Admin Dose 1 UNIT; Start 02/15/19 at 05:00 Midazolam HCl 50 ml @ 1 mls/hr TITRATE IV Last administered on 02/23/19 10:23; Admin Dose 7 MLS/HR; Start 02/15/19 at 10:00 Docusate Sodium (Colace Liquid Cup) 100 mg BID NGT Last administered on 02/23/19 09:06; Admin Dose 100 MG; Start 02/15/19 at 11:00 Bisacodyl (Dulcolax Supp) [address] CONSTIPATION Last administered on 02/21/19 14:06; Admin Dose 10 MG; Start 02/15/19 at 11:00 Levofloxacin/ Dextrose 150 ml @ 100 mls/hr Q24H IVPB Last administered on 02/22/19 16:15; Admin Dose 100 MLS/HR; Start 02/16/19 at 15:30 Famotidine (Pepcid) 20 mg Q12 NGT Last administered on 02/23/19 09:06; Admin Dose 20 MG; Start 02/18/19 at 21:00 IV Flush (NS 10 ml) 10 ml PRN PRN IV IV PROTOCOL; Start 02/18/19 at 15:30 Piperacillin Sod/ Tazobactam Sod 100 ml @ 200 mls/hr Q6 IVPB Last administered on 02/23/19 13:18; Admin Dose 200 MLS/HR; Start 02/19/19 at 18:00 Fluconazole (Diflucan) 100 mg DAILY PO Last administered on 02/23/19 09:06; Admin Dose 100 MG; Start 02/19/19 at 12:30 Vancomycin HCl 1.75 gm/Sodium Chloride 500 ml @ 125 mls/hr Q12H IVPB Last administered on 02/23/19 04:17; Admin Dose 125 MLS/HR; Start 02/20/19 at 17:00 Albuterol (Ventolin Hfa) 4 puff Q6H RESP THERAPY INH Last administered on 02/10 09:29; Admin Dose 4 PUFF; Start 02/20/19 at 20:03 Ipratropium [place] (Atrovent Hfa) 4 puff Q6H RESP THERAPY INH Last administered on 02/23/19 09:29; Admin Dose 4 PUFF; Start 02/20/19 at 20:04 Methylprednisolone Sodium Succinate (Solu-Medrol) 30 mg Q12 IV Last administered on 02/23/19 09:06; Admin Dose 30 MG; Start 02/21/19 at 21:00 Furosemide (Lasix) 20 mg BID DIURETICS IV Last administered on 02/23/19 05:10; Admin Dose 20 MG; Start 02/22/19 at 18:00 CARY GIPSON Feb 23, 2019 13:39
--- NOTE | 2019-02-23 15:03 | CONS ---
Assessment/Plan Assessment/Plan Hospital Course (Demo Recall) No acute changes patient remains intubated remains sedated with ongoing low- grade fevers with a T-max yesterday was 100.5 WBC 11.5 platelets 241 neutrophils 83 BUN 25 creatinine 0.[address] of the abdomen and pelvis that revealed liquid stool throughout most of the colon concerning for colitis bilateral lower lobe consolidation hepatomegaly hepatic steatosis NG tube and Nelson catheter in satisfactory positions. Ventral herniorrhaphy mesh unremarkable without findings to suggest infection. Please see full report in the chart Indwelling: Endotracheal tube, NG tube, PICC line, Nelson Antimicrobials: Zosyn fluconazole vancomycin Levaquin Microbiology: Endotracheal aspirate growing staph aureus, blood and urine culture since admission negative Physical examination: Obese well-developed middle-aged woman who is intubated sedated in no distress. Head atraumatic normocephalic neck is obese short, chest rise symmetrical breath sounds diminished bases. Heart: S1-S2. Abdomen soft bowel sounds present. Extremities without cyanosis Assessment: 1. Sepsis with ongoing fevers 2. Bilateral multifocal pneumonia 3. Acute respiratory failure 4. Diabetes 5. Morbid obesity 6. Down syndrome 7. Possible colitis Plan: Remains unchanged, change abx to Cefepime and Flagyl, continue vent management per pulmonary Consultation Date/Type/Reason Admit Date/Time Feb 12, 2019 at 12:24 Initial Consult Date Type of Consult id Requesting Provider: LORNA LYONS MD Date/Time of Note DATE: 02/23/19 TIME: 15:01 Exam/Review of Systems Exam Vitals Vital Signs Date Temp Pulse Resp B/P (MAP) Pulse Ox O2 O2 Flow FiO2 Time Delivery Rate 02/23/19 79 21 103/58 100 Mechanical 14:00 (73) Ventilator 02/23/19 40 12:00 02/23/19 98.4 12:00 Intake and Output 02/22/19 02/22/19 02/23/19 1515:00 23:00 07:00 IntakeIntake Total 1139.44 ml 836.478 ml 1073.128 ml OutputOutput Total 1150 ml 1475 ml 1355 ml BalanceBalance -10.56 ml -638.522 ml -281.872 ml Results Result Diagram: 02/23/19 0500 02/23/19 0500 Results 24hrs Laboratory Tests Test 02/22/19 17:32 02/22/19 20:29 02/23/19 01:03 02/23/19 04:29 Bedside Glucose 169 165 137 143 Test 02/23/19 05:00 02/23/19 09:08 02/23/19 13:14 White Blood Count 11.5 H Red Blood Count 4.89 Hemoglobin 13.1 Hematocrit 43.4 Mean Corpuscular 88.8 Volume Mean Corpuscular 26.8 L Hemoglobin Mean Corpuscular 30.2 L Hemoglobin Concent Red Cell 19.7 H Distribution Width Platelet Count 241 # Mean Platelet Volume 9.8 Immature 1.600 H Granulocytes % Neutrophils % 83.0 H Lymphocytes % 5.1 L Monocytes % 9.9 Eosinophils % 0.0 Basophils % 0.4 Nucleated Red Blood 0.0 Cells % Immature 0.180 H Granulocytes # Neutrophils # 9.6 H Lymphocytes # 0.6 L Monocytes # 1.1 H Eosinophils # 0.0 Basophils # 0.1 Nucleated Red Blood 0.0 Cells # Sodium Level 137 Potassium Level 4.2 Chloride Level 100 Carbon Dioxide Level 30 Anion Gap 7 Blood Urea Nitrogen 25 H Creatinine 0.67 Est Glomerular > 60 Filtrat Rate mL/min Glucose Level 156 Calcium Level 8.7 Bedside Glucose 172 158 Medications Medication Current Medications IV Flush (NS 3 ml) 3 ml PER PROTOCOL IV ; Start 02/12/19 at 15:30 Ondansetron HCl (Zofran Inj) 4 mg Q6H PRN IV NAUSEA/VOMITING; Start 02/12/19 at 15:30 Acetaminophen (Tylenol Tab) 650 mg Q6H PRN PO .PAIN 1-3 OR TEMP Last administered on 02/22/19at 23:24; Admin Dose 650 MG; Start 02/12/19 at 15:30 Docusate Sodium (Colace) 100 mg Q12H PRN PO .CONSTIPATION Last administered on 02/21/19at 14:05; Admin Dose 100 MG; Start 02/12/19 at 15:30 Enoxaparin Sodium (Lovenox) 40 mg DAILY SC Last administered on 02/23/19at 09:10; Admin Dose 40 MG; Start 02/13/19 at 09:00 Vancomycin HCl (Vanco Iv Per Pharmacy) VANCOMYCIN PER PHARMACY PER PROTOCOL XX ; Start 02/12/19 at 15:30 Propofol 100 ml @ 3.027 mls/ hr Q12H IV Last administered on 02/23/19 13:18; Admin Dose 9.686 MLS/HR; Start 02/13/19 at 00:30 Fentanyl 100 ml @ 2.5 mls/hr TITRATE IV Last administered on 02/23/19 06:02; Admin Dose 3 MLS/HR; Start 02/13/19 at 12:00 Levothyroxine Sodium (Synthroid) 88 mcg BEFORE BREAKFAST PO Last administered on 02/23/19 06:30; Admin Dose 88 MCG; Start 02/15/19 at 07:00 Miscellaneous Information 1 ea NOTE XX ; Start 02/14/19 at 10:30 Glucose (Glutose) 15 gm Q15M PRN PO DECREASED GLUCOSE; Start 02/14/19 at 10:30 Glucose (Glutose) 22.5 gm Q15M PRN PO DECREASED GLUCOSE; Start 02/14/19 at 10:30 Dextrose (D50w Syringe) 25 ml Q15M PRN IV DECREASED GLUCOSE; Start 02/14/19 at 10:30 Dextrose (D50w Syringe) 50 ml Q15M PRN IV DECREASED GLUCOSE; Start 02/14/19 at 10:30 Glucagon (Glucagen) 1 mg Q15M PRN IM DECREASED GLUCOSE; Start 02/14/19 at 10:30 Glucose (Glutose) 15 gm Q15M PRN BUCCAL DECREASED GLUCOSE; Start 02/14/19 at 10:30 Insulin Aspart (Novolog Insulin Pen) NOVOLOG *MILD* ALGORI... Q4 SC Last administered on 02/23/19 13:21; Admin Dose 1 UNIT; Start 02/15/19 at 05:00 Midazolam HCl 50 ml @ 1 mls/hr TITRATE IV Last administered on 02/23/19at 10:23; Admin Dose 7 MLS/HR; Start 02/15/19 at 10:00 Docusate Sodium (Colace Liquid Cup) 100 mg BID NGT Last administered on 02/23/19 09:06; Admin Dose 100 MG; Start 02/15/19 at 11:00 Bisacodyl (Dulcolax Supp) 10 mg DAILY PRN [place] CONSTIPATION Last administered on 02/21/19 14:06; Admin Dose 10 MG; Start 02/15/19 at 11:00 Levofloxacin/ Dextrose 150 ml @ 100 mls/hr Q24H IVPB Last administered on 02/22/19 16:15; Admin Dose 100 MLS/HR; Start 02/16/19 at 15:30 Famotidine (Pepcid) 20 mg Q12 NGT Last administered on 02/23/19 09:06; Admin Dose 20 MG; Start 02/18/19 at 21:00 IV Flush (NS 10 ml) 10 ml PRN PRN IV IV PROTOCOL; Start 02/18/19 at 15:30 Piperacillin Sod/ Tazobactam Sod 100 ml @ 200 mls/hr Q6 IVPB Last administered on 02/23/19 13:18; Admin Dose 200 MLS/HR; Start 02/19/19 at 18:00 Fluconazole (Diflucan) 100 mg DAILY PO Last administered on 02/23/19 09:06; Admin Dose 100 MG; Start 02/19/19 at 12:30 Vancomycin HCl 1.75 gm/Sodium Chloride 500 ml @ 125 mls/hr Q12H IVPB Last administered on 02/23/19 04:17; Admin Dose 125 MLS/HR; Start 02/20/19 at 17:00 Albuterol (Ventolin Hfa) 4 puff Q6H RESP THERAPY INH Last administered on 02/23/19 09:29; Admin Dose 4 PUFF; Start 02/20/19 at 20:03 Ipratropium [place] (Atrovent Hfa) 4 puff Q6H RESP THERAPY INH Last administered on 02/23/19 09:29; Admin Dose 4 PUFF; Start 02/20/19 at 20:04 Methylprednisolone Sodium Succinate (Solu-Medrol) 30 mg Q12 IV Last administered on 02/23/19 09:06; Admin Dose 30 MG; Start 02/21/19 at 21:00 Furosemide (Lasix) 20 mg BID DIURETICS IV Last administered on 02/23/19 05:10; Admin Dose 20 MG; Start 02/22/19 at 18:00 RUDOLPH YOON NP Feb 23, 2019 15:03
--- NOTE | 2019-02-23 15:55 | PN ---
DATE: 02/23/2019 SUBJECTIVE: Chart reviewed. Patient is orally intubated on 40% FIO2, saturating 100%. Off sedation the patient is quite agitated. PHYSICAL EXAMINATION: VITAL SIGNS: Blood pressure 104/57, pulse 62, respirations 20, temperature 98.4. HEENT: Pupils are equal and react to light, orally intubated. NECK: Supple, no JVD noted, no cervical adenopathy noted. LUNGS: Fair breath sounds bilaterally, decreased breath sounds at the bases. CARDIOVASCULAR: S1, S2 normal. ABDOMEN: Soft, obese, nontender. No masses noted. EXTREMITIES: No clubbing or cyanosis noted, 1+ pedal edema. NEUROLOGIC: Sedated. LABORATORY DATA: WBC 11.5, hemoglobin 13.1, hematocrit 43.4, platelets 241. Sodium 137, potassium 4 .2, chloride 100, CO2 of 30, BUN 25, creatinine 0.67, glucose 156. CT scan of the abdomen was done y esterday which showed bilateral lower lobe atelectasis versus pneumonia with some superimposed conges tive heart failure, liquid stool throughout the colon was seen concerning for colitis. CT brain did not show acute pathology except diffuse opacification of the paranasal sinuses and mastoid air cells. IMPRESSION: 1. Acute respiratory failure, hypoxemic. 2. Pneumonia. 3. History of Down syndrome. 4. History of hypothyroidism. 5. Congestive heart failure. RECOMMENDATIONS: 1. Continue current antibiotics. 2. Continue ventilator support for now. 3. I would consider doing a CPAP trial tomorrow morning with some sedation and a rapid possible extu bation after obtaining an ABG. 4. Above discussed with the staff and will discuss with Dr. Capone in the morning. Dictated By: KENNA ORTEGA MD, MA/MICHAEL Conf#: [id number] DID#: [id number] CC: LORNA LYONS;*EndCC*
[2019-02-23] MEDS: metroNIDAZOLE 500 MG/NS (PMX) 100 ML IVPB SCH ×2 (16:16→22:01)
[2019-02-23] MEDS: CEFEPIME 1GM/50 ML (PMX) 50 ML IVPB SCH (20:37)
[2019-02-24] VITALS (57 sets, daily range): BP systolic 89–130; BP diastolic 46–88; PULSE 67–95; RESP 19–42
[2019-02-24] MEDS: INSULIN ASPART [NOVOLOG] 3 ML PEN SC SCH ×6 (00:27→21:00)
[2019-02-24] MEDS: IPRATROPIUM (HFA) 12.9 GM INHALER INH SCH ×4 (01:10→19:37)
[2019-02-24] MEDS: ALBUTEROL HFA 8 GM INHALER INH SCH ×4 (01:10→19:37)
[2019-02-24] MEDS: ACETAMINOPHEN 325 MG TAB PO PRN (01:37)
[2019-02-24] MEDS: MIDAZOLAM (DRIP) 50 mg/50 mL 50 ML IV SCH ×3 (04:35→21:14)
[2019-02-24] MEDS: FUROSEMIDE 20 MG INJ IV SCH ×2 (05:28→17:43)
[2019-02-24] MEDS: metroNIDAZOLE 500 MG/NS (PMX) 100 ML IVPB SCH ×3 (05:28→21:15)
[2019-02-24] MEDS: LEVOTHYROXINE 88 MCG TAB PO SCH (06:27)
[2019-02-24] MEDS: FLUCONAZOLE 100 MG TAB PO SCH (08:09)
[2019-02-24] MEDS: METHYLPREDNISOLONE 40 MG INJ IV SCH (08:09)
[2019-02-24] MEDS: FAMOTIDINE 20 MG TAB NGT SCH ×2 (08:09→21:15)
[2019-02-24] MEDS: ENOXAPARIN 40 MG/0.4 ML SYG SC SCH (08:12)
[2019-02-24] MEDS: CEFEPIME 1GM/50 ML (PMX) 50 ML IVPB SCH ×2 (08:13→21:15)
[2019-02-24] MEDS: DOCUSATE SODIUM 10 MG/ML (10ML CUP) NGT SCH ×2 (08:14→21:15)
--- NOTE | 2019-02-24 09:28 | CONS ---
Assessment/Plan Assessment/Plan Assessment/Plan (Daily) Ventilator setting; AC of 10, tidal volume 400, PEEP of 5, 40% FiO2. Patient is currently on Versed 7 mg/h, propofol 40 mics per kilogram per minute, fentanyl 30 mics per hour. Assessment and recommendations; 1. Patient with history of Down syndrome admitted with severe bilateral pneumonia with a component of CHF with interval improvement. 2. History of hypothyroidism. Discontinue Solu-Medrol. Hold sedation. Once the patient off sedation she will be evaluated for possible extubation. Meanwhile chest x-ray will be obtained. Because of underlying Down syndrome, patient likely cannot be assessed properly on CPAP mode and if the chest x-ray looks clear patient would warrant an extubation trial. I did have a detailed discussion with patient's mother at bedside answered all her questions. 35 minutes of critical care time was spent evaluating patient. Consultation Date/Type/Reason Admit Date/Time Feb 12, 2019 at 12:24 Initial Consult Date Type of Consult Pulmonary/critical care Patient's condition remains critical. Still on fairly high FiO2. Patient however has remained hemodynamically stable. Patient does become agitated off sedation. General exam; young female, morbidly obese, orally intubated and sedated. Currently in no distress. Requesting Provider: LORNA LYONS MD Date/Time of Note DATE: 02/24/19 TIME: 09:26 24 HR Interval Summary Free Text/Dictation Patient's condition remains critical but stable. Has remained hemodynamically stable. General exam; young woman, with Down syndrome. Orally intubated. Sedated. Currently in no distress. Exam/Review of Systems Exam Vitals Vital Signs Date Temp Pulse Resp B/P (MAP) Pulse Ox O2 O2 Flow FiO2 Time Delivery Rate 02/24/19 86 21 104/57 Mechanica 09:00 (73) l Ventilato r 02/24/19 96 08:30 02/24/19 100.9 08:00 02/24/19 40 08:00 Intake and Output 02/23/19 02/23/19 02/24/19 1515:00 23:00 07:00 IntakeIntake Total 837.488 ml 894.936 ml 672.308 ml OutputOutput Total 1425 ml 1350 ml 1140 ml BalanceBalance -587.512 ml -455.064 ml -467.692 ml Exam H EENT exam; supple neck, JVD difficult to see because of short neck. No thyromegaly. No neck masses. Orally intubated. Pupils are small bilaterally. Nasogastric tube in place. Chest exam; diminished but clear breath sounds. S1-S2 audible, no murmurs. Regular rhythm. Abdomen exam; soft, no organomegaly. Mildly protuberant. Bowel sounds audible. Extremity exam; no peripheral edema. [employer] exam; patient is sedated. Results Result Diagram: 02/24/19 0500 02/24/19 0500 Results 24hrs Laboratory Tests Test 02/23/19 13:14 02/23/19 17:09 02/23/19 20:26 02/24/19 00:25 Bedside Glucose 158 140 149 177 Test 02/24/19 04:36 02/24/19 05:00 02/24/19 08:09 Bedside Glucose 166 144 White Blood Count 12.7 H Red Blood Count 4.88 Hemoglobin 13.1 Hematocrit 42.5 Mean Corpuscular 87.1 Volume Mean Corpuscular 26.8 L Hemoglobin Mean Corpuscular 30.8 L Hemoglobin Concent Red Cell 19.0 H Distribution Width Platelet Count 269 Mean Platelet Volume 10.2 Immature 1.500 H Granulocytes % Neutrophils % 87.9 H Lymphocytes % 3.8 L Monocytes % 6.5 Eosinophils % 0.0 Basophils % 0.3 Nucleated Red Blood 0.0 Cells % Immature 0.190 H Granulocytes # Neutrophils # 11.2 H Lymphocytes # 0.5 L Monocytes # 0.8 Eosinophils # 0.0 Basophils # 0.0 Nucleated Red Blood 0.0 Cells # Sodium Level 137 Potassium Level 4.2 Chloride Level 99 Carbon Dioxide Level 31 Anion Gap 7 Blood Urea Nitrogen 28 H Creatinine 0.61 Est Glomerular > 60 Filtrat Rate mL/min Glucose Level 173 Calcium Level 8.6 Medications Medication Current Medications IV Flush (NS 3 ml) 3 ml PER PROTOCOL IV ; Start 02/12/19 at 15:30 Ondansetron HCl (Zofran Inj) 4 mg Q6H PRN IV NAUSEA/VOMITING; Start 02/12/19 at 15:30 Acetaminophen (Tylenol Tab) 650 mg Q6H PRN PO .PAIN 1-3 OR TEMP Last administered on 02/24/19at 01:37; Admin Dose 650 MG; Start 02/12/19 at 15:30 Docusate Sodium (Colace) 100 mg Q12H PRN PO .CONSTIPATION Last administered on 02/21/19 14:05; Admin Dose 100 MG; Start 02/12/19 at 15:30 Enoxaparin Sodium (Lovenox) 40 mg DAILY SC Last administered on 02/24/19 08:12; Admin Dose 40 MG; Start 02/13/19 at 09:00 Propofol 100 ml @ 3.027 mls/ hr Q12H IV Last administered on 02/23/19 22:01; Admin Dose 7.265 MLS/HR; Start 02/13/19 at 00:30 Fentanyl 100 ml @ 2.5 mls/hr TITRATE IV Last administered on 02/23/19 06:02; Admin Dose 3 MLS/HR; Start 02/13/19 at 12:00 Levothyroxine Sodium (Synthroid) 88 mcg BEFORE BREAKFAST PO Last administered on 02/24/19 06:27; Admin Dose 88 MCG; Start 02/15/19 at 07:00 Miscellaneous Information 1 ea NOTE XX ; Start 02/14/19 at 10:30 Glucose (Glutose) 15 gm Q15M PRN PO DECREASED GLUCOSE; Start 02/14/19 at 10:30 Glucose (Glutose) 22.5 gm Q15M PRN PO DECREASED GLUCOSE; Start 02/14/19 at 10:30 Dextrose (D50w Syringe) 25 ml Q15M PRN IV DECREASED GLUCOSE; Start 02/14/19 at 10:30 Dextrose (D50w Syringe) 50 ml Q15M PRN IV DECREASED GLUCOSE; Start 02/14/19 at 10:30 Glucagon (Glucagen) 1 mg Q15M PRN IM DECREASED GLUCOSE; Start 02/14/19 at 10:30 Glucose (Glutose) 15 gm Q15M PRN BUCCAL DECREASED GLUCOSE; Start 02/14/19 at 10:30 Insulin Aspart (Novolog Insulin Pen) NOVOLOG *MILD* ALGORI... Q4 SC Last administered on 02/24/19 08:13; Admin Dose 1 UNIT; Start 02/15/19 at 05:00 Midazolam HCl 50 ml @ 1 mls/hr TITRATE IV Last administered on 02/24/19 04:35; Admin Dose 7 MLS/HR; Start 02/15/19 at 10:00 Docusate Sodium (Colace Liquid Cup) 100 mg BID NGT Last administered on 02/23/19 20:36; Admin Dose 100 MG; Start 02/15/19 at 11:00 Bisacodyl (Dulcolax Supp) 10 mg DAILY PRN [place] CONSTIPATION Last administered on 02/21/19 14:06; Admin Dose 10 MG; Start 02/15/19 at 11:00 Famotidine (Pepcid) 20 mg Q12 NGT Last administered on 02/24/19 08:09; Admin Dose 20 MG; Start 02/18/19 at 21:00 IV Flush (NS 10 ml) 10 ml PRN PRN IV IV PROTOCOL; Start 02/18/19 at 15:30 Fluconazole (Diflucan) 100 mg DAILY PO Last administered on 02/24/19 08:09; Admin Dose 100 MG; Start 02/19/19 at 12:30 Albuterol (Ventolin Hfa) 4 puff Q6H RESP THERAPY INH Last administered on 02/24/19 07:15; Admin Dose 4 PUFF; Start 02/20/19 at 20:03 Ipratropium [place] (Atrovent Hfa) 4 puff Q6H RESP THERAPY INH Last administered on 02/24/19 07:15; Admin Dose 4 PUFF; Start 02/20/19 at 20:04 Methylprednisolone Sodium Succinate (Solu-Medrol) 30 mg Q12 IV Last administered on 02/24/19 08:09; Admin Dose 30 MG; Start 02/21/19 at 21:00 Furosemide (Lasix) 20 mg BID DIURETICS IV Last administered on 02/24/19 05:28; Admin Dose 20 MG; Start 02/22/19 at 18:00 Metronidazole 100 ml @ 100 mls/hr Q8 IVPB Last administered on 02/24/19 05:28; Admin Dose 100 MLS/HR; Start 02/23/19 at 15:30 Cefepime HCl 50 ml @ 100 mls/hr Q12 IVPB Last administered on 02/24/19 08:13; Admin Dose 100 MLS/HR; Start 02/23/19 at 21:00 WILLA MARQUEZ Feb 24, 2019 09:28
--- NOTE | 2019-02-24 09:57 | CONS ---
Assessment/Plan Assessment/Plan Hospital Course (Demo Recall) IMPRESSION: 1. Congestive heart failure-diastolic acute on chronic 2. Lower extremity edema, assess for congestive heart failure.-preserved EF 3. Tachycardia, improved, status post intubation, likely due to respiratory distress. 4. Abnormal electrocardiogram with right axis deviation and T-wave flattening. -neg trop x 3 5. Down syndrome. 6. Hypothyroidism. 7. Diabetes mellitus. 8. Obstructive sleep apnea. 9. hypotension-remains borderline but stable and off pressors 10. Resp failure s/p intubation 11.encephalopathy 12. Fevers Recc: -ICU -Continue lasix diuresis as tolerated now BID and follow volume status closely -Contineu abx's and f/u cx data -Continue steroids and bronchodilators -Wean vent as tolerated Consultation Date/Type/Reason Admit Date/Time Feb 12, 2019 at 12:24 Initial Consult Date 02/12/19 Type of Consult Cardiology Reason for Consultation Hypotension Requesting Provider: LORNA LYONS MD Date/Time of Note DATE: 02/24/19 TIME: 09:54 Exam/Review of Systems Vital Signs Vitals Vital Signs Date Temp Pulse Resp B/P (MAP) Pulse Ox O2 O2 Flow FiO2 Time Delivery Rate 02/24/19 86 21 104/57 Mechanica 09:00 (73) l Ventilato r 02/24/19 96 08:30 02/24/19 100.9 08:00 02/24/19 40 08:00 Intake and Output 02/23/19 02/23/19 02/24/19 1515:00 23:00 07:00 IntakeIntake Total 837.488 ml 894.936 ml 672.308 ml OutputOutput Total 1425 ml 1350 ml 1140 ml BalanceBalance -587.512 ml -455.064 ml -467.692 ml Exam Exam Review of Systems: CONSTITUTIONAL: No fevers, chills. PULMONARY: intubated CARDIOVASCULAR: No chest pain/palpitations GASTROINTESTINAL: No nausea/vomiting. GENITOURINARY: No hematuria/dysuria. MUSCULOSKELETAL: No myagias/arthalgias. PSYCHIATRIC: The patient denies depression. NEUROLOGIC: No weakness Constitutional: other (sedated) Psych: no complaints ENMT: intubated Neck: supple, jvd (9 cm wter) Respiratory: diminished breath sounds (at bases/B) Cardiovascular: regular rate and rhythm Gastrointestinal: soft, non-tender Musculoskeletal: muscle tone (normal) Extremities: edema (none) Labs Result Diagram: 02/24/19 0500 02/24/19 0500 Results 24hrs Laboratory Tests Test 02/23/19 13:14 02/23/19 17:09 02/23/19 20:26 02/24/19 00:25 Bedside Glucose 158 140 149 177 Test 02/24/19 04:36 02/24/19 05:00 02/24/19 08:09 Bedside Glucose 166 144 White Blood Count 12.7 H Red Blood Count 4.88 Hemoglobin 13.1 Hematocrit 42.5 Mean Corpuscular 87.1 Volume Mean Corpuscular 26.8 L Hemoglobin Mean Corpuscular 30.8 L Hemoglobin Concent Red Cell 19.0 H Distribution Width Platelet Count 269 Mean Platelet Volume 10.2 Immature 1.500 H Granulocytes % Neutrophils % 87.9 H Lymphocytes % 3.8 L Monocytes % 6.5 Eosinophils % 0.0 Basophils % 0.3 Nucleated Red Blood 0.0 Cells % Immature 0.190 H Granulocytes # Neutrophils # 11.2 H Lymphocytes # 0.5 L Monocytes # 0.8 Eosinophils # 0.0 Basophils # 0.0 Nucleated Red Blood 0.0 Cells # Sodium Level 137 Potassium Level 4.2 Chloride Level 99 Carbon Dioxide Level 31 Anion Gap 7 Blood Urea Nitrogen 28 H Creatinine 0.61 Est Glomerular > 60 Filtrat Rate mL/min Glucose Level 173 Calcium Level 8.6 Medications Medications Current Medications IV Flush (NS 3 ml) 3 ml PER PROTOCOL IV ; Start 02/12/19 at 15:30 Ondansetron HCl (Zofran Inj) 4 mg Q6H PRN IV NAUSEA/VOMITING; Start 02/12/19 at 15:30 Acetaminophen (Tylenol Tab) 650 mg Q6H PRN PO .PAIN 1-3 OR TEMP Last a dministered on 02/24/19at 01:37; Admin Dose 650 MG; Start 02/12/19 at 15:30 Docusate Sodium (Colace) 100 mg Q12H PRN PO .CONSTIPATION Last administered on 02/21/19at 14:05; Admin Dose 100 MG; Start 02/12/19 at 15:30 Enoxaparin Sodium (Lovenox) 40 mg DAILY SC Last administered on 02/24/19 08:12; Admin Dose 40 MG; Start 02/13/19 at 09:00 Propofol 100 ml @ 3.027 mls/ hr Q12H IV Last administered on 02/23/19 22:01; Admin Dose 7.265 MLS/HR; Start 02/13/19 at 00:30 Fentanyl 100 ml @ 2.5 mls/hr TITRATE IV Last administered on 02/23/19 06:02; Admin Dose 3 MLS/HR; Start 02/13/19 at 12:00 Levothyroxine Sodium (Synthroid) 88 mcg BEFORE BREAKFAST PO Last administered on 02/24/19 06:27; Admin Dose 88 MCG; Start 02/15/19 at 07:00 Miscellaneous Information 1 ea NOTE XX ; Start 02/14/19 at 10:30 Glucose (Glutose) 15 gm Q15M PRN PO DECREASED GLUCOSE; Start 02/14/19 at 10:30 Glucose (Glutose) 22.5 gm Q15M PRN PO DECREASED GLUCOSE; Start 02/14/19 at 10:30 Dextrose (D50w Syringe) 25 ml Q15M PRN IV DECREASED GLUCOSE; Start 02/14/19 at 10:30 Dextrose (D50w Syringe) 50 ml Q15M PRN IV DECREASED GLUCOSE; Start 02/14/19 at 10:30 Glucagon (Glucagen) 1 mg Q15M PRN IM DECREASED GLUCOSE; Start 02/14/19 at 10:30 Glucose (Glutose) 15 gm Q15M PRN BUCCAL DECREASED GLUCOSE; Start 02/14/19 at 10:30 Insulin Aspart (Novolog Insulin Pen) NOVOLOG *MILD* ALGORI... Q4 SC Last administered on 02/24/19 08:13; Admin Dose 1 UNIT; Start 02/15/19 at 05:00 Midazolam HCl 50 ml @ 1 mls/hr TITRATE IV Last administered on 02/24/19 04:35; Admin Dose 7 MLS/HR; Start 02/15/19 at 10:00 Docusate Sodium (Colace Liquid Cup) 100 mg BID NGT Last administered on 02/23/19 20:36; Admin Dose 100 MG; Start 02/15/19 at 11:00 Bisacodyl (Dulcolax Supp) 10 mg DAILY PRN [place] CONSTIPATION Last administered on 02/21/19 14:06; Admin Dose 10 MG; Start 02/15/19 at 11:00 Famotidine (Pepcid) 20 mg Q12 NGT Last administered on 02/24/19 08:09; Admin Dose 20 MG; Start 02/18/19 at 21:00 IV Flush (NS 10 ml) 10 ml PRN PRN IV IV PROTOCOL; Start 02/18/19 at 15:30 Fluconazole (Diflucan) 100 mg DAILY PO Last administered on 02/24/19 08:09; Admin Dose 100 MG; Start 02/19/19 at 12:30 Albuterol (Ventolin Hfa) 4 puff Q6H RESP THERAPY INH Last administered on 02/24/19 07:15; Admin Dose 4 PUFF; Start 02/20/19 at 20:03 Ipratropium [place] (Atrovent Hfa) 4 puff Q6H RESP THERAPY INH Last administered on 02/24/19 07:15; Admin Dose 4 PUFF; Start 02/20/19 at 20:04 Furosemide (Lasix) 20 mg BID DIURETICS IV Last administered on 02/24/19 05: 28; Admin Dose 20 MG; Start 02/22/19 at 18:00 Metronidazole 100 ml @ 100 mls/hr Q8 IVPB Last administered on 02/24/19 05:28; Admin Dose 100 MLS/HR; Start 02/23/19 at 15:30 Cefepime HCl 50 ml @ 100 mls/hr Q12 IVPB Last administered on 02/24/19 08:13; Admin Dose 100 MLS/HR; Start 02/23/19 at 21:00 SHARIF TORRES Feb 24, 2019 09:57
--- NOTE | 2019-02-24 10:47 | PN ---
Date/Time of Note Date/Time of Note DATE: 02/24/19 TIME: 10:44 Assessment/Plan VTE Prophylaxis Risk score (from Ns)>0 risk: 9 SCD applied (from [facility] [place] Yes Pharmacological prophylaxis: NA/contraindicated Pharm contraindication: low risk/ambulating Lines/Catheters IV Catheter Type (from [facility]): PICC Line Central line still needed: Yes Urinary Cath still in place: Yes Reason Cath still needed: urinary retention Assessment/Plan Assessment/Plan 1. Severe altered mental status likely secondary to metabolic encephalopathy, likely secondary to CO2 narcosis. The patient is also on antidepressants and loxapine at home. Surprisingly on ABG CO2 levels were not high, CT of the head is negative 2. Hypoxic respiratory failure s/p intubation secondary to pneumonia/CHF 3. Lactic acidosis. Respiratory acidosis. 4. Morbid obesity. 5. Down syndrome. 6. Hypertension. 7. Diabetes. 8. History of ventral hernia repair. 9. Leukocytosis secondary to pneumonia 10. Hypothyroidism 11. KIRIT, more likely due to sepsis 12 low-grade fevers CT of the abdomen and pelvis some mild colitis Assessment/Plan -CPAP trial today and possible extubation - cw with Lasix 20 bid -Continue with cefepime/Flagyl/Diflucan -c/w tube feed -Vent management per pulmonary. - cw levothyroxine -cardiology input is appreciated -Sedation per pulmonary - GI Famotidine BID - dvt Prophylaxsis Result Diagram: 02/24/19 0500 02/24/19 0500 Results 24hrs Laboratory Tests Test 02/23/19 13:14 02/23/19 17:09 02/23/19 20:26 02/24/19 00:25 Bedside Glucose 158 140 149 177 Test 02/24/19 04:36 02/24/19 05:00 02/24/19 08:09 Bedside Glucose 166 144 White Blood Count 12.7 H Red Blood Count 4.88 Hemoglobin 13.1 Hematocrit 42.5 Mean Corpuscular 87.1 Volume Mean Corpuscular 26.8 L Hemoglobin Mean Corpuscular 30.8 L Hemoglobin Concent Red Cell 19.0 H Distribution Width Platelet Count 269 Mean Platelet Volume 10.2 Immature 1.500 H Granulocytes % Neutrophils % 87.9 H Lymphocytes % 3.8 L Monocytes % 6.5 Eosinophils % 0.0 Basophils % 0.3 Nucleated Red Blood 0.0 Cells % Immature 0.190 H Granulocytes # Neutrophils # 11.2 H Lymphocytes # 0.5 L Monocytes # 0.8 Eosinophils # 0.0 Basophils # 0.0 Nucleated Red Blood 0.0 Cells # Sodium Level 137 Potassium Level 4.2 Chloride Level 99 Carbon Dioxide Level 31 Anion Gap 7 Blood Urea Nitrogen 28 H Creatinine 0.61 Est Glomerular > 60 Filtrat Rate mL/min Glucose Level 173 Calcium Level 8.6 Subjective 24 Hr Interval Summary Free Text/Dictation off Sedation. Follows commands Exam/Review of Systems Exam Vitals Vital Signs Date Temp Pulse Resp B/P (MAP) Pulse Ox O2 O2 Flow FiO2 Time Delivery Rate 02/24/19 86 21 104/57 Mechanica 09:00 (73) l Ventilato r 02/24/19 96 08:30 02/24/19 100.9 08:00 02/24/19 40 08:00 Intake and Output 02/23/19 02/23/19 02/24/19 1515:00 23:00 07:00 IntakeIntake Total 837.488 ml 894.936 ml 672.308 ml OutputOutput Total 1425 ml 1350 ml 1140 ml BalanceBalance -587.512 ml -455.064 ml -467.692 ml Exam Constitutional: non-verbal, obese, follows commands off sedation Neck: supple Respiratory: diminished breath sounds Cardiovascular: regular rate and rhythm Gastrointestinal: soft Musculoskeletal: swelling; No nl extremities to inspection, No nl gait and stance, No joint tenderness, No muscle tone, No muscle weakness, No range of motion, No spine non-tender, No other Results Results 24hrs Laboratory Tests Test 02/23/19 13:14 02/23/19 17:09 02/23/19 20:26 02/24/19 00:25 Bedside Glucose 158 140 149 177 Test 02/24/19 04:36 02/24/19 05:00 02/24/19 08:09 Bedside Glucose 166 144 White Blood Count 12.7 H Red Blood Count 4.88 Hemoglobin 13.1 Hematocrit 42.5 Mean Corpuscular 87.1 Volume Mean Corpuscular 26.8 L Hemoglobin Mean Corpuscular 30.8 L Hemoglobin Concent Red Cell 19.0 H Distribution Width Platelet Count 269 Mean Platelet Volume 10.2 Immature 1.500 H Granulocytes % Neutrophils % 87.9 H Lymphocytes % 3.8 L Monocytes % 6.5 Eosinophils % 0.0 Basophils % 0.3 Nucleated Red Blood 0.0 Cells % Immature 0.190 H Granulocytes # Neutrophils # 11.2 H Lymphocytes # 0.5 L Monocytes # 0.8 Eosinophils # 0.0 Basophils # 0.0 Nucleated Red Blood 0.0 Cells # Sodium Level 137 Potassium Level 4.2 Chloride Level 99 Carbon Dioxide Level 31 Anion Gap 7 Blood Urea Nitrogen 28 H Creatinine 0.61 Est Glomerular > 60 Filtrat Rate mL/min Glucose Level 173 Calcium Level 8.6 Medications Medication Current Medications IV Flush (NS 3 ml) 3 ml PER PROTOCOL IV ; Start 02/12/19 at 15:30 Ondansetron HCl (Zofran Inj) 4 mg Q6H PRN IV NAUSEA/VOMITING; Start 02/12/19 at 15:30 Acetaminophen (Tylenol Tab) 650 mg Q6H PRN PO .PAIN 1-3 OR TEMP Last administered on 02/24/19 01:37; Admin Dose 650 MG; Start 02/12/19 at 15:30 Docusate Sodium (Colace) 100 mg Q12H PRN PO .CONSTIPATION Last administered on 02/21/19 14:05; Admin Dose 100 MG; Start 02/12/19 at 15:30 Enoxaparin Sodium (Lovenox) 40 mg DAILY SC Last administered on 02/24/19 08:12; Admin Dose 40 MG; Start 02/13/19 at 09:00 Propofol 100 ml @ 3.027 mls/ hr Q12H IV Last administered on 02/23/19 22:01; Admin Dose 7.265 MLS/HR; Start 02/13/19 at 00:30 Fentanyl 100 ml @ 2.5 mls/hr TITRATE IV Last administered on 02/23/19 06:02; Admin Dose 3 MLS/HR; Start 02/13/19 at 12:00 Levothyroxine Sodium (Synthroid) 88 mcg BEFORE BREAKFAST PO Last administered on 02/24/19 06:27; Admin Dose 88 MCG; Start 02/15/19 at 07:00 Miscellaneous Information 1 ea NOTE XX ; Start 02/14/19 at 10:30 Glucose (Glutose) 15 gm Q15M PRN PO DECREASED GLUCOSE; Start 02/14/19 at 10:30 Glucose (Glutose) 22.5 gm Q15M PRN PO DECREASED GLUCOSE; Start 02/14/19 at 10:30 Dextrose (D50w Syringe) 25 ml Q15M PRN IV DECREASED GLUCOSE; Start 02/14/19 at 10:30 Dextrose (D50w Syringe) 50 ml Q15M PRN IV DECREASED GLUCOSE; Start 02/14/19 at 10:30 Glucagon (Glucagen) 1 mg Q15M PRN IM DECREASED GLUCOSE; Start 02/14/19 at 10:30 Glucose (Glutose) 15 gm Q15M PRN BUCCAL DECREASED GLUCOSE; Start 02/14/19 at 10:30 Insulin Aspart (Novolog Insulin Pen) NOVOLOG *MILD* ALGORI... Q4 SC Last administered on 02/24/19 08:13; Admin Dose 1 UNIT; Start 02/15/19 at 05:00 Midazolam HCl 50 ml @ 1 mls/hr TITRATE IV Last administered on 02/24/19at 04:35; Admin Dose 7 MLS/HR; Start 02/15/19 at 10:00 Docusate Sodium (Colace Liquid Cup) 100 mg BID NGT Last administered on 02/23/19at 20:36; Admin Dose 100 MG; Start 02/15/19 at 11:00 Bisacodyl (Dulcolax Supp) 10 mg DAILY PRN [place] CONSTIPATION Last administered on 02/21/19at 14:06; Admin Dose 10 MG; Start 02/15/19 at 11:00 Famotidine (Pepcid) 20 mg Q12 NGT Last administered on 02/24/19 08:09; Admin Dose 20 MG; Start 02/18/19 at 21:00 IV Flush (NS 10 ml) 10 ml PRN PRN IV IV PROTOCOL; Start 02/18/19 at 15:30 Fluconazole (Diflucan) 100 mg DAILY PO Last administered on 02/24/19 08:09; Admin Dose 100 MG; Start 02/19/19 at 12:30 Albuterol (Ventolin Hfa) 4 puff Q6H RESP THERAPY INH Last administered on 02/24/19 07:15; Admin Dose 4 PUFF; Start 02/20/19 at 20:03 Ipratropium [place] (Atrovent Hfa) 4 puff Q6H RESP THERAPY INH Last administered on 02/24/19 07:15; Admin Dose 4 PUFF; Start 02/20/19 at 20:04 Furosemide (Lasix) 20 mg BID DIURETICS IV Last administered on 02/24/19at 05:28; Admin Dose 20 MG; Start 02/22/19 at 18:00 Metronidazole 100 ml @ 100 mls/hr Q8 IVPB Last administered on 02/24/19at 05:28; Admin Dose 100 MLS/HR; Start 02/23/19 at 15:30 Cefepime HCl 50 ml @ 100 mls/hr Q12 IVPB Last administered on 02/24/19at 08:13; Admin Dose 100 MLS/HR; Start 02/23/19 at 21:00 LORNA LYONS MD Feb 24, 2019 10:47
[2019-02-24] MEDS: PROPOFOL 100 ML IV SCH (12:15)
--- NOTE | 2019-02-24 14:03 | CONS ---
Assessment/Plan Assessment/Plan Hospital Course (Demo Recall) Patient continues to spike low-grade fevers, T-max this morning 100.9 she looks comfortable WBC today 12.7 neutrophils 87.9 BUN 28 creatinine 0.61 Antimicrobials: Cefepime fluconazole, Flagyl Patient had CT of the abdomen and pelvis that revealed liquid stool throughout most of the colon concerning for colitis bilateral lower lobe consolidation hepatomegaly hepatic steatosis NG tube and Nelson catheter in satisfactory positions. Ventral herniorrhaphy mesh unremarkable without findings to suggest infection. Please see full report in the chart Indwelling: Endotracheal tube, NG tube, PICC line, Nelson Microbiology: Endotracheal aspirate growing staph aureus, blood and urine culture since admission negative Physical examination: Obese well-developed middle-aged woman who is intubated sedated in no distress. Head atraumatic normocephalic neck is obese short, chest rise symmetrical breath sounds diminished bases. Heart: S1-S2. Abdomen soft bowel sounds present. Extremities without cyanosis Assessment: 1. Sepsis with ongoing fevers 2. Bilateral multifocal pneumonia 3. Acute respiratory failure 4. Diabetes 5. Morbid obesity 6. Down syndrome 7. Possible colitis Plan: Remains unchanged, continue antibiotics, vent management per pulmonary, reculture for temperature of 101 Discussed with RN Consultation Date/Type/Reason Admit Date/Time Feb 12, 2019 at 12:24 Initial Consult Date Type of Consult id Requesting Provider: LORNA LYONS MD Date/Time of Note DATE: 02/24/19 TIME: 14:02 Exam/Review of Systems Exam Vitals Vital Signs Date Temp Pulse Resp B/P (MAP) Pulse Ox O2 O2 Flow FiO2 Time Delivery Rate 02/24/19 86 21 114/63 97 Mechanica 11:00 (80) l Ventilato r 02/24/19 40 10:50 02/24/19 100.9 08:00 Intake and Output 02/23/19 02/23/19 02/24/19 1515:00 23:00 07:00 IntakeIntake Total 837.488 ml 894.936 ml 672.308 ml OutputOutput Total 1425 ml 1350 ml 1140 ml BalanceBalance -587.512 ml -455.064 ml -467.692 ml Results Result Diagram: 02/24/19 0500 02/24/19 0500 Results 24hrs Laboratory Tests Test 02/23/19 17:09 02/23/19 20:26 02/24/19 00:25 02/24/19 04:36 Bedside Glucose 140 149 177 166 Test 02/24/19 05:00 02/24/19 08:09 02/24/19 12:24 White Blood Count 12.7 H Red Blood Count 4.88 Hemoglobin 13.1 Hematocrit 42.5 Mean Corpuscular 87.1 Volume Mean Corpuscular 26.8 L Hemoglobin Mean Corpuscular 30.8 L Hemoglobin Concent Red Cell 19.0 H Distribution Width Platelet Count 269 Mean Platelet Volume 10.2 Immature 1.500 H Granulocytes % Neutrophils % 87.9 H Lymphocytes % 3.8 L Monocytes % 6.5 Eosinophils % 0.0 Basophils % 0.3 Nucleated Red Blood 0.0 Cells % Immature 0.190 H Granulocytes # Neutrophils # 11.2 H Lymphocytes # 0.5 L Monocytes # 0.8 Eosinophils # 0.0 Basophils # 0.0 Nucleated Red Blood 0.0 Cells # Sodium Level 137 Potassium Level 4.2 Chloride Level 99 Carbon Dioxide Level 31 Anion Gap 7 Blood Urea Nitrogen 28 H Creatinine 0.61 Est Glomerular > 60 Filtrat Rate mL/min Glucose Level 173 Calcium Level 8.6 Bedside Glucose 144 141 Medications Medication Current Medications IV Flush (NS 3 ml) 3 ml PER PROTOCOL IV ; Start 02/12/19 at 15:30 Ondansetron HCl (Zofran Inj) 4 mg Q6H PRN IV NAUSEA/VOMITING; Start 02/12/19 at 15:30 Acetaminophen (Tylenol Tab) 650 mg Q6H PRN PO .PAIN 1-3 OR TEMP Last administered on 02/24/19at 01:37; Admin Dose 650 MG; Start 02/12/19 at 15:30 Docusate Sodium (Colace) 100 mg Q12H PRN PO .CONSTIPATION Last administered on 02/21/19at 14:05; Admin Dose 100 MG; Start 02/12/19 at 15:30 Enoxaparin Sodium (Lovenox) 40 mg DAILY SC Last administered on 02/24/19at 08:12; Admin Dose 40 MG; Start 02/13/19 at 09:00 Propofol 100 ml @ 3.027 mls/ hr Q12H IV Last administered on 02/24/19at 12:15; Admin Dose 8.476 MLS/HR; Start 02/13/19 at 00:30 Fentanyl 100 ml @ 2.5 mls/hr TITRATE IV Last administered on 02/23/19at 06:02; Admin Dose 3 MLS/HR; Start 02/13/19 at 12:00 Levothyroxine Sodium (Synthroid) 88 mcg BEFORE BREAKFAST PO Last administered on 02/24/19at 06:27; Admin Dose 88 MCG; Start 02/15/19 at 07:00 Miscellaneous Information 1 ea NOTE XX ; Start 02/14/19 at 10:30 Glucose (Glutose) 15 gm Q15M PRN PO DECREASED GLUCOSE; Start 02/14/19 at 10:30 Glucose (Glutose) 22.5 gm Q15M PRN PO DECREASED GLUCOSE; Start 02/14/19 at 10:30 Dextrose (D50w Syringe) 25 ml Q15M PRN IV DECREASED GLUCOSE; Start 02/14/19 at 10:30 Dextrose (D50w Syringe) 50 ml Q15M PRN IV DECREASED GLUCOSE; Start 02/14/19 at 10:30 Glucagon (Glucagen) 1 mg Q15M PRN IM DECREASED GLUCOSE; Start 02/14/19 at 10:30 Glucose (Glutose) 15 gm Q15M PRN BUCCAL DECREASED GLUCOSE; Start 02/14/19 at 10:30 Insulin Aspart (Novolog Insulin Pen) NOVOLOG *MILD* ALGORI... Q4 SC Last administered on 02/24/19at 12:29; Admin Dose 1 UNIT; Start 02/15/19 at 05:00 Midazolam HCl 50 ml @ 1 mls/hr TITRATE IV Last administered on 02/24/19at 12:16; Admin Dose 7 MLS/HR; Start 02/15/19 at 10:00 Docusate Sodium (Colace Liquid Cup) 100 mg BID NGT Last administered on 02/23/19at 20:36; Admin Dose 100 MG; Start 02/15/19 at 11:00 Bisacodyl (Dulcolax Supp) 10 mg DAILY PRN [place] CONSTIPATION Last administered on 02/21/19at 14:06; Admin Dose 10 MG; Start 02/15/19 at 11:00 Famotidine (Pepcid) 20 mg Q12 NGT Last administered on 02/24/19at 08:09; Admin Dose 20 MG; Start 02/18/19 at 21:00 IV Flush (NS 10 ml) 10 ml PRN PRN IV IV PROTOCOL; Start 02/18/19 at 15:30 Fluconazole (Diflucan) 100 mg DAILY PO Last administered on 02/24/19 08:09; Admin Dose 100 MG; Start 02/19/19 at 12:30 Albuterol (Ventolin Hfa) 4 puff Q6H RESP THERAPY INH Last administered on 02/24/19 13:27; Admin Dose 4 PUFF; Start 02/20/19 at 20:03 Ipratropium [place] (Atrovent Hfa) 4 puff Q6H RESP THERAPY INH Last administered on 02/24/19 13:26; Admin Dose 4 PUFF; Start 02/20/19 at 20:04 Furosemide (Lasix) 20 mg BID DIURETICS IV Last administered on 02/24/19 05:28; Admin Dose 20 MG; Start 02/22/19 at 18:00 Metronidazole 100 ml @ 100 mls/hr Q8 IVPB Last administered on 02/24/19 05:28; Admin Dose 100 MLS/HR; Start 02/23/19 at 15:30 Cefepime HCl 50 ml @ 100 mls/hr Q12 IVPB Last administered on 02/24/19 08:13; Admin Dose 100 MLS/HR; Start 02/23/19 at 21:00 RUDOLPH YOON NP Feb 24, 2019 14:03
[2019-02-24] MEDS: FENTAnyl (DRIP) 1000 mcg/100mL 100 ML IV SCH (19:21)
[2019-02-25] VITALS (43 sets, daily range): BP systolic 82–127; BP diastolic 45–79; PULSE 70–95; RESP 14–39
[2019-02-25] MEDS: INSULIN ASPART [NOVOLOG] 3 ML PEN SC SCH ×6 (01:00→20:41)
[2019-02-25] MEDS: IPRATROPIUM (HFA) 12.9 GM INHALER INH SCH ×4 (01:31→19:32)
[2019-02-25] MEDS: ALBUTEROL HFA 8 GM INHALER INH SCH ×4 (01:31→19:32)
[2019-02-25] MEDS: PROPOFOL 100 ML IV SCH (01:55)
[2019-02-25] MEDS: metroNIDAZOLE 500 MG/NS (PMX) 100 ML IVPB SCH ×3 (05:08→22:40)
[2019-02-25] MEDS: FUROSEMIDE 20 MG INJ IV SCH (05:08)
[2019-02-25] MEDS: MIDAZOLAM (DRIP) 50 mg/50 mL 50 ML IV SCH (06:10)
[2019-02-25] MEDS: LEVOTHYROXINE 88 MCG TAB PO SCH (06:10)
[2019-02-25] MEDS: FLUCONAZOLE 100 MG TAB PO SCH (08:08)
[2019-02-25] MEDS: CEFEPIME 1GM/50 ML (PMX) 50 ML IVPB SCH ×2 (08:08→20:59)
[2019-02-25] MEDS: FAMOTIDINE 20 MG TAB NGT SCH ×2 (08:08→21:00)
[2019-02-25] MEDS: DOCUSATE SODIUM 10 MG/ML (10ML CUP) NGT SCH ×2 (08:09→20:59)
[2019-02-25] MEDS: ENOXAPARIN 40 MG/0.4 ML SYG SC SCH (08:12)
--- NOTE | 2019-02-25 09:19 | CONS ---
Assessment/Plan Assessment/Plan Assessment/Plan (Daily) Chest x-ray was reviewed from today which is essentially clear now. Ventilator setting; assist control of 20, tidal volume 400, PEEP of 5, 30% FiO2. Patient is on combination Versed propofol and fentanyl drips for sedation. Assessment and recommendations; 1. Patient with history of Down syndrome admitted for severe bilateral pneumonia with a component of CHF with significant radiological improvement. 2. History of hypothyroidism. 3. Because of Down syndrome, patient likely would not handle CPAP mode because of underlying anxiety. Hold sedation. Once the patient is awake, she will be extubated without going through CPAP mode. I did have a detailed discussion with patient's mother at bedside answered all her questions. Meanwhile consider stopping antibiotics. 35 minutes of critical care time was spent evaluating patient. Consultation Date/Type/Reason Admit Date/Time Feb 12, 2019 at 12:24 Initial Consult Date Type of Consult Pulmonary/critical care Patient's condition remains critical. Still on fairly high FiO2. Patient however has remained hemodynamically stable. Patient does become agitated off s edation. General exam; young female, morbidly obese, orally intubated and sedated. Currently in no distress. Requesting Provider: LORNA LYONS MD Date/Time of Note DATE: 02/25/19 TIME: 09:15 24 HR Interval Summary Free Text/Dictation Patient's condition remains critical. Patient however has remained hemodynamically stable. General exam; young woman, orally intubated, sedated, currently no distress. Exam/Review of Systems Exam Vitals Vital Signs Date Temp Pulse Resp B/P (MAP) Pulse Ox O2 O2 Flow FiO2 Time Delivery Rate 02/25/19 84 20 108/64 98 Mechanica 09:00 (79) l Ventilato r 02/25/19 100.8 08:00 02/25/19 40 08:00 Intake and Output 02/24/19 02/24/19 02/25/19 1515:00 23:00 07:00 IntakeIntake Total 397.5 ml 717.880 ml 590.378 ml OutputOutput Total 800 ml 1250 ml 1000 ml BalanceBalance -402.5 ml -532.120 ml -409.622 ml Exam H EENT exam; supple neck, JVD difficult to see because of short neck. Orally intubated. Patient has fair dentition. No neck masses. Pupils are small bilaterally. Chest exam; diminished but clear breath sounds. S1-S2 audible, no murmurs. Regular rhythm. Abdomen exam; soft, mildly protuberant. No organomegaly. Bowel sounds are audible. Extremity exam; no peripheral edema clubbing. MANUFACTURER REPRESENTATIVE exam; patient is sedated. Results Result Diagram: 02/25/19 0449 02/25/19 0449 Results 24hrs Laboratory Tests Test 02/24/19 12:24 02/24/19 16:21 02/24/19 21:18 02/25/19 00:58 Bedside Glucose 141 149 132 119 Test 02/25/19 04:49 02/25/19 05:06 02/25/19 08:07 White Blood Count 11.0 H Red Blood Count 4.94 Hemoglobin 13.4 Hematocrit 43.8 Mean Corpuscular 88.7 Volume Mean Corpuscular 27.1 L Hemoglobin Mean Corpuscular 30.6 L Hemoglobin Concent Red Cell 19.9 H Distribution Width Platelet Count 274 Mean Platelet Volume 9.9 Immature 2.500 H Granulocytes % Neutrophils % 72.9 Lymphocytes % 13.5 L Monocytes % 9.9 Eosinophils % 0.2 Basophils % 1.0 Nucleated Red Blood 0.0 Cells % Immature 0.280 H Granulocytes # Neutrophils # 8.0 H Lymphocytes # 1.5 Monocytes # 1.1 H Eosinophils # 0.0 Basophils # 0.1 Nucleated Red Blood 0.0 Cells # Sodium Level 140 Potassium Level 3.3 L Chloride Level 100 Carbon Dioxide Level 32 H Anion Gap 8 Blood Urea Nitrogen 34 H Creatinine 0.76 Est Glomerular > 60 Filtrat Rate mL/min Glucose Level 136 Calcium Level 8.4 Phosphorus Level 3.1 Magnesium Level 2.5 Total Bilirubin 0.3 Direct Bilirubin 0.00 Indirect Bilirubin 0.3 Aspartate Amino 15 Transf (AST/SGOT) Alanine 26 Aminotransferase (AL T/SGPT) Alkaline Phosphatase 39 L Total Protein 6.2 Albumin 3.2 L Globulin 3.00 Albumin/Globulin 1.06 Ratio Bedside Glucose 127 138 Medications Medication Current Medications IV Flush (NS 3 ml) 3 ml PER PROTOCOL IV ; Start 02/12/19 at 15:30 Ondansetron HCl (Zofran Inj) 4 mg Q6H PRN IV NAUSEA/VOMITING; Start 02/12/19 at 15:30 Acetaminophen (Tylenol Tab) 650 mg Q6H PRN PO .PAIN 1-3 OR TEMP Last administered on 02/24/19 01:37; Admin Dose 650 MG; Start 02/12/19 at 15:30 Docusate Sodium (Colace) 100 mg Q12H PRN PO .CONSTIPATION Last administered on 02/21/19 14:05; Admin Dose 100 MG; Start 02/12/19 at 15:30 Enoxaparin Sodium (Lovenox) 40 mg DAILY SC Last administered on 02/25/19 08:12; Admin Dose 40 MG; Start 02/13/19 at 09:00 Propofol 100 ml @ 3.027 mls/ hr Q12H IV Last administered on 02/25/19 01:55; Admin Dose 6.054 MLS/HR; Start 02/13/19 at 00:30 Fentanyl 100 ml @ 2.5 mls/hr TITRATE IV Last administered on 02/24/19 19:21; Admin Dose 3 MLS/HR; Start 02/13/19 at 12:00 Levothyroxine Sodium (Synthroid) 88 mcg BEFORE BREAKFAST PO Last administered on 02/25/19 06:10; Admin Dose 88 MCG; Start 02/15/19 at 07:00 Miscellaneous Information 1 ea NOTE XX ; Start 02/14/19 at 10:30 Glucose (Glutose) 15 gm Q15M PRN PO DECREASED GLUCOSE; Start 02/14/19 at 10:30 Glucose (Glutose) 22.5 gm Q15M PRN PO DECREASED GLUCOSE; Start 02/14/19 at 10:30 Dextrose (D50w Syringe) 25 ml Q15M PRN IV DECREASED GLUCOSE; Start 02/14/19 at 10:30 Dextrose (D50w Syringe) 50 ml Q15M PRN IV DECREASED GLUCOSE; Start 02/14/19 at 10:30 Glucagon (Glucagen) 1 mg Q15M PRN IM DECREASED GLUCOSE; Start 02/14/19 at 10:30 Glucose (Glutose) 15 gm Q15M PRN BUCCAL DECREASED GLUCOSE; Start 02/14/19 at 10:30 Insulin Aspart (Novolog Insulin Pen) NOVOLOG *MILD* ALGORI... Q4 SC Last administered on 02/24/19 16:27; Admin Dose 1 UNIT; Start 02/15/19 at 05:00 Midazolam HCl 50 ml @ 1 mls/hr TITRATE IV Last administered on 02/25/19 06:10; Admin Dose 5 MLS/HR; Start 02/15/19 at 10:00 Docusate Sodium (Colace Liquid Cup) 100 mg BID NGT Last administered on 02/24/19 21:15; Admin Dose 100 MG; Start 02/15/19 at 11:00 Bisacodyl (Dulcolax Supp) 10 mg DAILY PRN [place] CONSTIPATION Last administered on 02/21/19 14:06; Admin Dose 10 MG; Start 02/15/19 at 11:00 Famotidine (Pepcid) 20 mg Q12 NGT Last administered on 02/25/19 08:08; Admin Dose 20 MG; Start 02/18/19 at 21:00 IV Flush (NS 10 ml) 10 ml PRN PRN IV IV PROTOCOL; Start 02/18/19 at 15:30 Fluconazole (Diflucan) 100 mg DAILY PO Last administered on 02/25/19 08:08; Admin Dose 100 MG; Start 02/19/19 at 12:30 Albuterol (Ventolin Hfa) 4 puff Q6H RESP THERAPY INH Last administered on 02/25/19 07:59; Admin Dose 4 PUFF; Start 02/20/19 at 20:03 Ipratropium [place] (Atrovent Hfa) 4 puff Q6H RESP THERAPY INH Last administered on 02/25/19 07:59; Admin Dose 4 PUFF; Start 02/20/19 at 20:04 Furosemide (Lasix) 20 mg BID DIURETICS IV Last administered on 02/25/19 05:08; Admin Dose 20 MG; Start 02/22/19 at 18:00 Metronidazole 100 ml @ 100 mls/hr Q8 IVPB Last administered on 02/25/19 05:08; Admin Dose 100 MLS/HR; Start 02/23/19 at 15:30 Cefepime HCl 50 ml @ 100 mls/hr Q12 IVPB Last administered on 02/25/19 08:08; Admin Dose 100 MLS/HR; Start 02/23/19 at 21:00 WILLA MARQUEZ Feb 25, 2019 09:19
[2019-02-25] MEDS: POTASSIUM CHLORIDE 100 ML IVPB SCH ×2 (11:09→13:20)
--- NOTE | 2019-02-25 11:13 | CONS ---
Consult Date/Type/Reason Admit Date/Time Feb 12, 2019 at 12:24 Initial Consult Date Type of Consultation: Pulm/CCM Requesting Provider: LORNA LYONS MD Date/Time of Note DATE: 02/25/19 TIME: 11:10 Subjective NO acute events - BP in good range - stable urine output - con't to wean - improved fluid status now. ROS: No fever, no chills, no nausea, no vomiting, no diarrhea/constipation No recent weight changes No chest pain, no PND, no orthopnea - mild SOB No dizziness, blurred vision No thirst, no heat or cold intolerance Objective Vitals Vital Signs Date Temp Pulse Resp B/P (MAP) Pulse Ox O2 O2 Flow FiO2 Time Delivery Rate 02/25/19 84 20 108/64 98 Mechanica 09:00 (79) l Ventilato r 02/25/19 100.8 08:00 02/25/19 40 08:00 Intake and Output 02/24/19 02/24/19 02/25/19 1414:59 22:59 06:59 IntakeIntake Total 397.476 ml 817.904 ml 658.854 ml OutputOutput Total 1200 ml 1300 ml 1050 ml BalanceBalance -802.524 ml -482.096 ml -391.146 ml Exam General: WN/WD/NAD, AOx comfortable - intubated HEENT: Unicetric/atraumatic/EOMI (follow commands) NECK: JVD elevated, no thyromegaly Lymph: no lymphadenopathy HEART: regular with no S3, II/ systolic murmur at apex, PMI L LUNGS: Coarse sounds ABD: soft, NT, ND, +BS : Intact Neuro: non focal SKIN: chronic changes EXT: trace edema Results/Medications Result Diagram: 02/25/19 0449 02/25/19 0449 Results 24 hrs Laboratory Tests Test 02/24/19 12:24 02/24/19 16:21 02/24/19 21:18 02/25/19 00:58 Bedside Glucose 141 149 132 119 Test 02/25/19 04:49 02/25/19 05:06 02/25/19 08:07 White Blood Count 11.0 H Red Blood Count 4.94 Hemoglobin 13.4 Hematocrit 43.8 Mean Corpuscular 88.7 Volume Mean Corpuscular 27.1 L Hemoglobin Mean Corpuscular 30.6 L Hemoglobin Concent Red Cell 19.9 H Distribution Width Platelet Count 274 Mean Platelet Volume 9.9 Immature 2.500 H Granulocytes % Neutrophils % 72.9 Lymphocytes % 13.5 L Monocytes % 9.9 Eosinophils % 0.2 Basophils % 1.0 Nucleated Red Blood 0.0 Cells % Immature 0.280 H Granulocytes # Neutrophils # 8.0 H Lymphocytes # 1.5 Monocytes # 1.1 H Eosinophils # 0.0 Basophils # 0.1 Nucleated Red Blood 0.0 Cells # Sodium Level 140 Potassium Level 3.3 L Chloride Level 100 Carbon Dioxide Level 32 H Anion Gap 8 Blood Urea Nitrogen 34 H Creatinine 0.76 Est Glomerular > 60 Filtrat Rate mL/min Glucose Level 136 Calcium Level 8.4 Phosphorus Level 3.1 Magnesium Level 2.5 Total Bilirubin 0.3 Direct Bilirubin 0.00 Indirect Bilirubin 0.3 Aspartate Amino 15 Transf (AST/SGOT) Alanine 26 Aminotransferase (AL T/SGPT) Alkaline Phosphatase 39 L Total Protein 6.2 Albumin 3.2 L Globulin 3.00 Albumin/Globulin 1.06 Ratio Bedside Glucose 127 138 Home Meds Reported Medications [place] Carbonate* ([place]*) 300 Mg Cap, 600 MG PO QHS, CAP 02/12/19 Levothyroxine Sodium* (Levoxyl*) 88 Mcg Tablet, 88 MCG PO BEFORE BREAKFAST, #30 TAB 02/12/19 Loxapine Succinate (Loxapine) 10 Mg Capsule, 10 MG PO QHS, CAP 02/12/19 Cyanocobalamin* (Vitamin B12*) 100 Mcg Tab, 100 MCG PO DAILY, TAB 02/12/19 Loratadine* (Loratadine*) 10 Mg Tablet, 10 MG PO DAILY, #30 TAB 02/12/19 Metformin Hcl* (Metformin Hcl*) 500 Mg Tablet, 500 MG PO WITH BREAKFAST, #30 TAB 02/12/19 Propranolol Hcl* (Propranolol Hcl*) 10 Mg Tablet, 10 MG PO BID, TAB 02/12/19 Ergocalciferol (Vitamin D2) (VITAMIN D2) 50,000 Unit Capsule, 27814 UNIT PO EVERY SUNDAY, CAP 02/12/19 Medications Current Medications IV Flush (NS 3 ml) 3 ml PER PROTOCOL IV ; Start 02/12/19 at 15:30 Ondansetron HCl (Zofran Inj) 4 mg Q6H PRN IV NAUSEA/VOMITING; Start 02/12/19 at 15:30 Acetaminophen (Tylenol Tab) 650 mg Q6H PRN PO .PAIN 1-3 OR TEMP Last administered on 02/24/19 01:37; Admin Dose 650 MG; Start 02/12/19 at 15:30 Docusate Sodium (Colace) 100 mg Q12H PRN PO .CONSTIPATION Last administered on 02/21/19 14:05; Admin Dose 100 MG; Start 02/12/19 at 15:30 Enoxaparin Sodium (Lovenox) 40 mg DAILY SC Last administered on 02/25/19 08:12; Admin Dose 40 MG; Start 02/13/19 at 09:00 Propofol 100 ml @ 3.027 mls/ hr Q12H IV Last administered on 02/25/19 01:55; Admin Dose 6.054 MLS/HR; Start 02/13/19 at 00:30 Fentanyl 100 ml @ 2.5 mls/hr TITRATE IV Last administered on 02/24/19 19:21; Admin Dose 3 MLS/HR; Start 02/13/19 at 12:00 Levothyroxine Sodium (Synthroid) 88 mcg BEFORE BREAKFAST PO Last administered on 02/25/19 06:10; Admin Dose 88 MCG; Start 02/15/19 at 07:00 Miscellaneous Information 1 ea NOTE XX ; Start 02/14/19 at 10:30 Glucose (Glutose) 15 gm Q15M PRN PO DECREASED GLUCOSE; Start 02/14/19 at 10:30 Glucose (Glutose) 22.5 gm Q15M PRN PO DECREASED GLUCOSE; Start 02/14/19 at 10:30 Dextrose (D50w Syringe) 25 ml Q15M PRN IV DECREASED GLUCOSE; Start 02/14/19 at 10:30 Dextrose (D50w Syringe) 50 ml Q15M PRN IV DECREASED GLUCOSE; Start 02/14/19 at 10:30 Glucagon (Glucagen) 1 mg Q15M PRN IM DECREASED GLUCOSE; Start 02/14/19 at 10:30 Glucose (Glutose) 15 gm Q15M PRN BUCCAL DECREASED GLUCOSE; Start 02/14/19 at 10:30 Insulin Aspart (Novolog Insulin Pen) NOVOLOG *MILD* ALGORI... Q4 SC Last administered on 02/24/19 16:27; Admin Dose 1 UNIT; Start 02/15/19 at 05:00 Midazolam HCl 50 ml @ 1 mls/hr TITRATE IV Last administered on 02/25/19 06:10; Admin Dose 5 MLS/HR; Start 02/15/19 at 10:00 Docusate Sodium (Colace Liquid Cup) 100 mg BID NGT Last administered on 9at 21:15; Admin Dose 100 MG; Start 02/15/19 at 11:00 Bisacodyl (Dulcolax Supp) 10 mg DAILY PRN [place] CONSTIPATION Last administered on 02/21/19 14:06; Admin Dose 10 MG; Start 02/15/19 at 11:00 Famotidine (Pepcid) 20 mg Q12 NGT Last administered on 02/25/19 08:08; Admin Dose 20 MG; Start 02/18/19 at 21:00 IV Flush (NS 10 ml) 10 ml PRN PRN IV IV PROTOCOL; Start 02/18/19 at 15:30 Fluconazole (Diflucan) 100 mg DAILY PO Last administered on 02/25/19 08:08; Admin Dose 100 MG; Start 02/19/19 at 12:30 Albuterol (Ventolin Hfa) 4 puff Q6H RESP THERAPY INH Last administered on 02/25/19 07:59; Admin Dose 4 PUFF; Start 02/20/19 at 20:03 Ipratropium [place] (Atrovent Hfa) 4 puff Q6H RESP THERAPY INH Last administered on 02/25/19 07:59; Admin Dose 4 PUFF; Start 02/20/19 at 20:04 Metronidazole 100 ml @ 100 mls/hr Q8 IVPB Last administered on 02/25/19 05:08; Admin Dose 100 MLS/HR; Start 02/23/19 at 15:30 Cefepime HCl 50 ml @ 100 mls/hr Q12 IVPB Last administered on 02/25/19 08:08; Admin Dose 100 MLS/HR; Start 02/23/19 at 21:00 Furosemide (Lasix) 20 mg DAILY IV ; Start 02/26/19 at 09:00 Potassium Chloride 100 ml @ 50 mls/hr Q2H IVPB Last administered on 02/25/19 11:09; Admin Dose 50 MLS/HR; Start 02/25/19 at 11:00; Stop 02/25/19 at 14:59 Assessment/Plan Hospital Course (Demo Recall) 1. Respiratory failure, assess for congestive heart failure - now intubated, con't supportive Rx. Con't to wean as tolerated. Con't to wean per pulmonary team. Better fluid status now. Now weaning - pulm team follows - will adjust meds as needed. 2. Lower extremity edema, assess for congestive heart failure- con't diuresis - increased urine output. On meds now. Rate controlled. Improved. 3. Tachycardia, improved, status post intubation, likely due to respiratory distress. Sinus tach - better now. Treated. NOw in sinus at 90s - con't resp care., Better overall. Rate controlled. 4. Abnormal electrocardiogram with right axis deviation and T-wave flattening. Assess for acute coronary syndrome. NO CP now. 5. Down syndrome. Supportive Rx as needed. 6. Hypothyroidism - on meds. Treated. 7. Diabetes mellitus- con't to keep euglycemic. Con't to keep euglycemic. 8. Obstructive sleep apnea- on vent. 9. CHF - diast HF - acute on chronic, con'y gentle diuresis. BRIAN PATTERSON MD Feb 25, 2019 11:13
--- NOTE | 2019-02-25 11:16 | PN ---
Date/Time of Note Date/Time of Note DATE: 02/25/19 TIME: 11:14 Assessment/Plan VTE Prophylaxis Risk score (from Ns)>0 risk: 8 SCD applied (from [facility] [place]): Yes Pharmacological prophylaxis: NA/contraindicated Pharm contraindication: low risk/ambulating Lines/Catheters IV Catheter Type (from [facility]): PICC Line Central line still needed: Yes Urinary Cath still in place: No Assessment/Plan Assessment/Plan . Severe altered mental status likely secondary to metabolic encephalopathy, likely secondary to CO2 narcosis. The patient is also on antidepressants and loxapine at home. Surprisingly on ABG CO2 levels were not high, CT of the head is negative 2. Hypoxic respiratory failure s/p intubation secondary to pneumonia/CHF 3. Lactic acidosis. Respiratory acidosis. 4. Morbid obesity. 5. Down syndrome. 6. Hypertension. 7. Diabetes. 8. History of ventral hernia repair. 9. Leukocytosis secondary to pneumonia 10. Hypothyroidism 11. KIRIT, more likely due to sepsis 12 low-grade fevers CT of the abdomen and pelvis some mild colitis Assessment/Plan -CPAP trial today and possible extubation -decrease lasix - replete K - Chest Xray improved -Continue with cefepime/Flagyl/Diflucan -c/w tube feed -Vent management per pulmonary. - cw levothyroxine -cardiology input is appreciated -Sedation per pulmonary - GI Famotidine BID - dvt Prophylaxsis Result Diagram: 02/25/19 0449 02/25/199 Results 24hrs Laboratory Tests Test 02/24/19 12:24 02/24/19 16:21 02/24/19 21:18 02/25/19 00:58 Bedside Glucose 141 149 132 119 Test 02/25/19 04:49 02/25/19 05:06 02/25/19 08:07 White Blood Count 11.0 H Red Blood Count 4.94 Hemoglobin 13.4 Hematocrit 43.8 Mean Corpuscular 88.7 Volume Mean Corpuscular 27.1 L Hemoglobin Mean Corpuscular 30.6 L Hemoglobin Concent Red Cell 19.9 H Distribution Width Platelet Count 274 Mean Platelet Volume 9.9 Immature 2.500 H Granulocytes % Neutrophils % 72.9 Lymphocytes % 13.5 L Monocytes % 9.9 Eosinophils % 0.2 Basophils % 1.0 Nucleated Red Blood 0.0 Cells % Immature 0.280 H Granulocytes # Neutrophils # 8.0 H Lymphocytes # 1.5 Monocytes # 1.1 H Eosinophils # 0.0 Basophils # 0.1 Nucleated Red Blood 0.0 Cells # Sodium Level 140 Potassium Level 3.3 L Chloride Level 100 Carbon Dioxide Level 32 H Anion Gap 8 Blood Urea Nitrogen 34 H Creatinine 0.76 Est Glomerular > 60 Filtrat Rate mL/min Glucose Level 136 Calcium Level 8.4 Phosphorus Level 3.1 Magnesium Level 2.5 Total Bilirubin 0.3 Direct Bilirubin 0.00 Indirect Bilirubin 0.3 Aspartate Amino 15 Transf (AST/SGOT) Alanine 26 Aminotransferase (AL T/SGPT) Alkaline Phosphatase 39 L Total Protein 6.2 Albumin 3.2 L Globulin 3.00 Albumin/Globulin 1.06 Ratio Bedside Glucose 127 138 Subjective 24 Hr Interval Summary Free Text/Dictation off sedation this am opens eyes low grade fevers Exam/Review of Systems Exam Vitals Vital Signs Date Temp Pulse Resp B/P (MAP) Pulse Ox O2 O2 Flow FiO2 Time Delivery Rate 02/25/19 84 20 108/64 98 Mechanica 09:00 (79) l Ventilato r 02/25/19 100.8 08:00 02/25/19 40 08:00 Intake and Output 02/24/19 02/24/19 02/25/19 1515:00 23:00 07:00 IntakeIntake Total 397.5 ml 717.880 ml 590.378 ml OutputOutput Total 800 ml 1250 ml 1000 ml BalanceBalance -402.5 ml -532.120 ml -409.622 ml Exam Constitutional: obese, follows commands off sedation Neck: supple Respiratory: diminished breath sounds Cardiovascular: regular rate and rhythm Gastrointestinal: soft Musculoskeletal: swelling; No nl extremities to inspection, No nl gait and stance, No joint tenderness, No muscle tone, No muscle weakness, No range of motion, No spine non-tender, No other Results Results 24hrs Laboratory Tests Test 02/24/19 12:24 02/24/19 16:21 02/24/19 21:18 02/25/19 00:58 Bedside Glucose 141 149 132 119 Test 02/25/19 04:49 02/25/19 05:06 02/25/19 08:07 White Blood Count 11.0 H Red Blood Count 4.94 Hemoglobin 13.4 Hematocrit 43.8 Mean Corpuscular 88.7 Volume Mean Corpuscular 27.1 L Hemoglobin Mean Corpuscular 30.6 L Hemoglobin Concent Red Cell 19.9 H Distribution Width Platelet Count 274 Mean Platelet Volume 9.9 Immature 2.500 H Granulocytes % Neutrophils % 72.9 Lymphocytes % 13.5 L Monocytes % 9.9 Eosinophils % 0.2 Basophils % 1.0 Nucleated Red Blood 0.0 Cells % Immature 0.280 H Granulocytes # Neutrophils # 8.0 H Lymphocytes # 1.5 Monocytes # 1.1 H Eosinophils # 0.0 Basophils # 0.1 Nucleated Red Blood 0.0 Cells # Sodium Level 140 Potassium Level 3.3 L Chloride Level 100 Carbon Dioxide Level 32 H Anion Gap 8 Blood Urea Nitrogen 34 H Creatinine 0.76 Est Glomerular > 60 Filtrat Rate mL/min Glucose Level 136 Calcium Level 8.4 Phosphorus Level 3.1 Magnesium Level 2.5 Total Bilirubin 0.3 Direct Bilirubin 0.00 Indirect Bilirubin 0.3 Aspartate Amino 15 Transf (AST/SGOT) Alanine 26 Aminotransferase (AL T/SGPT) Alkaline Phosphatase 39 L Total Protein 6.2 Albumin 3.2 L Globulin 3.00 Albumin/Globulin 1.06 Ratio Bedside Glucose 127 138 Medications Medication Current Medications IV Flush (NS 3 ml) 3 ml PER PROTOCOL IV ; Start 02/12/19 at 15:30 Ondansetron HCl (Zofran Inj) 4 mg Q6H PRN IV NAUSEA/VOMITING; Start 02/12/19 at 15:30 Acetaminophen (Tylenol Tab) 650 mg Q6H PRN PO .PAIN 1-3 OR TEMP Last administered on 02/24/19at 01:37; Admin Dose 650 MG; Start 02/12/19 at 15:30 Docusate Sodium (Colace) 100 mg Q12H PRN PO .CONSTIPATION Last administered on 02/21/19at 14:05; Admin Dose 100 MG; Start 02/12/19 at 15:30 Enoxaparin Sodium (Lovenox) 40 mg DAILY SC Last administered on 02/25/19 08: 12; Admin Dose 40 MG; Start 02/13/19 at 09:00 Propofol 100 ml @ 3.027 mls/ hr Q12H IV Last administered on 02/25/19 01:55; Admin Dose 6.054 MLS/HR; Start 02/13/19 at 00:30 Fentanyl 100 ml @ 2.5 mls/hr TITRATE IV Last administered on 02/24/19at 19:21; Admin Dose 3 MLS/HR; Start 02/13/19 at 12:00 Levothyroxine Sodium (Synthroid) 88 mcg BEFORE BREAKFAST PO Last administered on 02/25/19at 06:10; Admin Dose 88 MCG; Start 02/15/19 at 07:00 Miscellaneous Information 1 ea NOTE XX ; Start 02/14/19 at 10:30 Glucose (Glutose) 15 gm Q15M PRN PO DECREASED GLUCOSE; Start 02/14/19 at 10:30 Glucose (Glutose) 22.5 gm Q15M PRN PO DECREASED GLUCOSE; Start 02/14/19 at 10:30 Dextrose (D50w Syringe) 25 ml Q15M PRN IV DECREASED GLUCOSE; Start 02/14/19 at 10:30 Dextrose (D50w Syringe) 50 ml Q15M PRN IV DECREASED GLUCOSE; Start 02/14/19 at 10:30 Glucagon (Glucagen) 1 mg Q15M PRN IM DECREASED GLUCOSE; Start 02/14/19 at 10:30 Glucose (Glutose) 15 gm Q15M PRN BUCCAL DECREASED GLUCOSE; Start 02/14/19 at 10:30 Insulin Aspart (Novolog Insulin Pen) NOVOLOG *MILD* ALGORI... Q4 SC Last administered on 02/24/19at 16:27; Admin Dose 1 UNIT; Start 02/15/19 at 05:00 Midazolam HCl 50 ml @ 1 mls/hr TITRATE IV Last administered on 02/25/19at 06:10; Admin Dose 5 MLS/HR; Start 02/15/19 at 10:00 Docusate Sodium (Colace Liquid Cup) 100 mg BID NGT Last administered on 02/24/19at 21:15; Admin Dose 100 MG; Start 02/15/19 at 11:00 Bisacodyl (Dulcolax Supp) 10 mg DAILY PRN [place] CONSTIPATION Last administered on 02/21/19at 14:06; Admin Dose 10 MG; Start 02/15/19 at 11:00 Famotidine (Pepcid) 20 mg Q12 NGT Last administered on 02/25/19at 08:08; Admin Dose 20 MG; Start 02/18/19 at 21:00 IV Flush (NS 10 ml) 10 ml PRN PRN IV IV PROTOCOL; Start 02/18/19 at 15:30 Fluconazole (Diflucan) 100 mg DAILY PO Last administered on 02/25/19 08:08; Admin Dose 100 MG; Start 02/19/19 at 12:30 Albuterol (Ventolin Hfa) 4 puff Q6H RESP THERAPY INH Last administered on 02/25/19 07:59; Admin Dose 4 PUFF; Start 02/20/19 at 20:03 Ipratropium [place] (Atrovent Hfa) 4 puff Q6H RESP THERAPY INH Last administered on 02/25/19 07:59; Admin Dose 4 PUFF; Start 02/20/19 at 20:04 Metronidazole 100 ml @ 100 mls/hr Q8 IVPB Last administered on 02/25/19 05:08; Admin Dose 100 MLS/HR; Start 02/23/19 at 15:30 Cefepime HCl 50 ml @ 100 mls/hr Q12 IVPB Last administered on 02/25/19 08:08; Admin Dose 100 MLS/HR; Start 02/23/19 at 21:00 Furosemide (Lasix) 20 mg DAILY IV ; Start 02/26/19 at 09:00 Potassium Chloride 100 ml @ 50 mls/hr Q2H IVPB Last administered on 02/25/19 11:09; Admin Dose 50 MLS/HR; Start 02/25/19 at 11:00; Stop 02/25/19 at 14:59 LORNA LYONS MD Feb 25, 2019 11:15
--- NOTE | 2019-02-25 14:48 | PN ---
DATE: 02/25/2019 SUBJECTIVE: No acute changes overnight. The patient is comfortable on vent, off sedation, tolerates weaning. VITAL SIGNS: T-max 100.8. WBC 11, platelets 274, neutrophils 72.9, BUN 34, creatinine 0.76. ANTIMICROBIALS: The patient is on cefepime and Flagyl. INDWELLINGS: Endotracheal tube, NG tube, Nelson and PICC line. PHYSICAL EXAMINATION: GENERAL: This is a chronically ill-appearing, obese, middle-aged woman who is in no distress. HEENT: Head atraumatic, normocephalic, neck is obese NECK: Obese and short. CHEST: Rise symmetrical. Breath sounds diminished to bases. HEART: S1, S2. ABDOMEN: Obese, soft, bowel tones present. EXTREMITIES: With trace edema. ASSESSMENT: 1. Severe sepsis on admission. 2. Ongoing fevers. 3. Severe bilateral pneumonia. 4. Down syndrome. 5. Colitis as per CT of the abdomen. 6. Diabetes. PLAN: The patient is stable. We will continue her on current antibiotics. Continue weaning trials per pulmonary recommendations. Dictated By: RUDOLPH YOON [employer] for ЕКАТЕРИНА JIMENEZ MD NI/NTS Conf#: [id number] DID#: [id number]
[2019-02-25] MEDS: DEXMEDETOMIDINE IN DEXTROSE 5% 50 ML IV SCH (17:56)
[2019-02-25] MEDS ORDERED: SCOPOLAMINE 1.5 MG PATCH TRANSDERM PRN (22:30)
[2019-02-26] VITALS (57 sets, daily range): BP systolic 88–132; BP diastolic 37–82; PULSE 64–103; RESP 10–33
[2019-02-26] MEDS: PROPOFOL 100 ML IV SCH ×3 (00:30→23:09)
[2019-02-26] MEDS: ALBUTEROL HFA 8 GM INHALER INH SCH ×4 (01:11→19:24)
[2019-02-26] MEDS: IPRATROPIUM (HFA) 12.9 GM INHALER INH SCH ×4 (01:11→19:24)
[2019-02-26] MEDS: INSULIN ASPART [NOVOLOG] 3 ML PEN SC SCH ×6 (01:32→20:17)
[2019-02-26] MEDS: metroNIDAZOLE 500 MG/NS (PMX) 100 ML IVPB SCH ×3 (05:18→22:12)
[2019-02-26] MEDS: LEVOTHYROXINE 88 MCG TAB PO SCH (06:30)
[2019-02-26] MEDS: DEXMEDETOMIDINE IN DEXTROSE 5% 50 ML IV SCH ×2 (06:56→22:17)
[2019-02-26] MEDS: CEFEPIME 1GM/50 ML (PMX) 50 ML IVPB SCH ×2 (09:00→20:15)
[2019-02-26] MEDS: DOCUSATE SODIUM 10 MG/ML (10ML CUP) NGT SCH ×2 (09:00→20:15)
[2019-02-26] MEDS: FUROSEMIDE 20 MG INJ IV SCH (09:01)
[2019-02-26] MEDS: FAMOTIDINE 20 MG TAB NGT SCH ×2 (09:01→20:15)
[2019-02-26] MEDS: FLUCONAZOLE 100 MG TAB PO SCH (09:01)
[2019-02-26] MEDS: ENOXAPARIN 40 MG/0.4 ML SYG SC SCH (09:11)
--- NOTE | 2019-02-26 09:13 | CONS ---
Assessment/Plan Assessment/Plan Assessment/Plan (Daily) Ventilator setting; SIMV of 14, pressure support of 15, PEEP of 5, tidal volume 400, 40% FiO2. Patient is off Precedex drip. Assessment and recommendations; 1. Patient with history of Down syndrome admitted for severe bilateral pneumonia with component of CHF with marked interval radiological improvement. 2. Acute encephalopathy possibly sedative related. With improvement in mental status as well. 3. According to patient's mother, patient has been exhibiting lethargy over the last several weeks to few months possibly indicative of underlying hypercapnic respiratory failure. 4. History of hypothyroidism. Hold feeding. Patient to be given another CPAP trial. If the patient does well , I would recommend extubating her. Meanwhile continue current supportive care. I did have a detailed discussion the patient's mother at bedside. Also discussed with patient's nurse as well as respiratory therapist. Consultation Date/Type/Reason Admit Date/Time Feb 12, 2019 at 12:24 Initial Consult Date Type of Consult Pulmonary/critical care Patient's condition remains critical. Still on fairly high FiO2. Patient [facility] has remained hemodynamically stable. Patient does become agitated off sedation. General exam; young female, morbidly obese, orally intubated and sedated. Currently in no distress. Requesting Provider: LORNA LYONS MD Date/Time of Note DATE: 02/26/19 TIME: 09:10 24 HR Interval Summary Free Text/Dictation Patient's condition is critical but stable. Patient again failed a CPAP trial yesterday. However over the last several hours patient's mental status is markedly improved to the point with the patient is now following simple commands. Patient also tolerating SIMV mode fairly well. General exam; young woman, orally intubated, awake and responsive appropriately. Currently in no distress. Exam/Review of Systems Exam Vitals Vital Signs Date Temp Pulse Resp B/P (MAP) Pulse Ox O2 O2 Flow FiO2 Time Delivery Rate 02/26/19 88 08:00 02/26/19 99.3 20 104/54 100 Mechanical 08:00 (71) Ventilator 02/26/19 40 05:53 Intake and Output 02/25/19 02/25/19 02/26/19 1515:00 23:00 07:00 IntakeIntake Total 180 ml 450 ml 566 ml OutputOutput Total 700 ml 365 ml 195 ml BalanceBalance -520 ml 85 ml 371 ml Exam HEENT exam; supple neck, JVD difficult to see because of short neck. No thyromegaly. Nasogastric tube in place. Orally intubated. No neck masses. Pupils are small bilaterally. Chest exam; clear to auscultation. S1-S2 audible, no murmurs. Regular rhythm. Abdomen exam; soft, protuberant. No organomegaly. Nontender. Bowel sounds are audible. Extremity exam; no peripheral edema. [employer] exam; patient awake and follows simple commands. Results Result Diagram: 02/26/19 0514 02/26/19 0514 Results 24hrs Laboratory Tests Test 02/25/19 12:58 02/25/19 16:53 02/25/19 20:40 02/26/19 01:27 Bedside Glucose 115 114 132 143 Test 02/26/19 05:14 White Blood Count 11.7 H Red Blood Count 5.28 Hemoglobin 14.4 Hematocrit 46.1 Mean Corpuscular 87.3 Volume Mean Corpuscular 27.3 L Hemoglobin Mean Corpuscular 31.2 L Hemoglobin Concent Red Cell 20.0 H Distribution Width Platelet Count 269 Mean Platelet Volume 9.7 Immature 1.700 H Granulocytes % Neutrophils % 85.7 H Lymphocytes % 5.1 L Monocytes % 5.7 Eosinophils % 1.2 Basophils % 0.6 Nucleated Red Blood 0.0 Cells % Immature 0.200 H Granulocytes # Neutrophils # 10.0 H Lymphocytes # 0.6 L Monocytes # 0.7 Eosinophils # 0.1 Basophils # 0.1 Nucleated Red Blood 0.0 Cells # Sodium Level 141 Potassium Level 3.5 Chloride Level 103 Carbon Dioxide Level 30 Anion Gap 8 Blood Urea Nitrogen 32 H Creatinine 0.73 Est Glomerular > 60 Filtrat Rate mL/min Glucose Level 171 Bedside Glucose 147 Calcium Level 9.0 Phosphorus Level 3.7 Magnesium Level 2.4 Total Bilirubin 0.4 Direct Bilirubin 0.00 Indirect Bilirubin 0.4 Aspartate Amino 20 Transf (AST/SGOT) Alanine 27 Aminotransferase (AL T/SGPT) Alkaline Phosphatase 39 L Total Protein 6.1 Albumin 3.2 L Globulin 2.90 Albumin/Globulin 1.10 Ratio Medications Medication Current Medications IV Flush (NS 3 ml) 3 ml PER PROTOCOL IV ; Start 02/12/19 at 15:30 Ondansetron HCl (Zofran Inj) 4 mg Q6H PRN IV NAUSEA/VOMITING; Start 02/12/19 at 15:30 Acetaminophen (Tylenol Tab) 650 mg Q6H PRN PO .PAIN 1-3 OR TEMP Last administered on 02/24/19at 01:37; Admin Dose 650 MG; Start 02/12/19 at 15:30 Docusate Sodium (Colace) 100 mg Q12H PRN PO .CONSTIPATION Last administered on 02/21/19at 14:05; Admin Dose 100 MG; Start 02/12/19 at 15:30 Enoxaparin Sodium (Lovenox) 40 mg DAILY SC Last administered on 02/25/19 08:12; Admin Dose 40 MG; Start 02/13/19 at 09:00 Propofol 100 ml @ 3.027 mls/ hr Q12H IV Last administered on 02/25/19 01:55; Admin Dose 6.054 MLS/HR; Start 02/13/19 at 00:30 Fentanyl 100 ml @ 2.5 mls/hr TITRATE IV Last administered on 02/24/19 19:21; Admin Dose 3 MLS/HR; Start 02/13/19 at 12:00 Levothyroxine Sodium (Synthroid) 88 mcg BEFORE BREAKFAST PO Last administered on 02/26/19 06:30; Admin Dose 88 MCG; Start 02/15/19 at 07:00 Miscellaneous Information 1 ea NOTE XX ; Start 02/14/19 at 10:30 Glucose (Glutose) 15 gm Q15M PRN PO DECREASED GLUCOSE; Start 02/14/19 at 10:30 Glucose (Glutose) 22.5 gm Q15M PRN PO DECREASED GLUCOSE; Start 02/14/19 at 10:30 Dextrose (D50w Syringe) 25 ml Q15M PRN IV DECREASED GLUCOSE; Start 02/14/19 at 10:30 Dextrose (D50w Syringe) 50 ml Q15M PRN IV DECREASED GLUCOSE; Start 02/14/19 at 1 0:30 Glucagon (Glucagen) 1 mg Q15M PRN IM DECREASED GLUCOSE; Start 02/14/19 at 10:30 Glucose (Glutose) 15 gm Q15M PRN BUCCAL DECREASED GLUCOSE; Start 02/14/19 at 10:30 Insulin Aspart (Novolog Insulin Pen) NOVOLOG *MILD* ALGORI... Q4 SC Last administered on 02/26/19 05:15; Admin Dose 1 UNIT; Start 02/15/19 at 05:00 Midazolam HCl 50 ml @ 1 mls/hr TITRATE IV Last administered on 02/25/19 06:10; Admin Dose 5 MLS/HR; Start 02/15/19 at 10:00 Docusate Sodium (Colace Liquid Cup) 100 mg BID NGT Last administered on 02/24/19 21:15; Admin Dose 100 MG; Start 02/15/19 at 11:00 Bisacodyl (Dulcolax Supp) 10 mg DAILY PRN [place] CONSTIPATION Last administered on 02/21/19 14:06; Admin Dose 10 MG; Start 02/15/19 at 11:00 Famotidine (Pepcid) 20 mg Q12 NGT Last administered on 02/25/19 21:00; Admin Dose 20 MG; Start 02/18/19 at 21:00 IV Flush (NS 10 ml) 10 ml PRN PRN IV IV PROTOCOL; Start 02/18/19 at 15:30 Fluconazole (Diflucan) 100 mg DAILY PO Last administered on 02/25/19 08:08; Admin Dose 100 MG; Start 02/19/19 at 12:30 Albuterol (Ventolin Hfa) 4 puff Q6H RESP THERAPY INH Last administered on 02/10 08:24; Admin Dose 4 PUFF; Start 02/20/19 at 20:03 Ipratropium [place] (Atrovent Hfa) 4 puff Q6H RESP THERAPY INH Last administered on 02/26/19 08:24; Admin Dose 4 PUFF; Start 02/20/19 at 20:04 Metronidazole 100 ml @ 100 mls/hr Q8 IVPB Last administered on 02/26/19 05:18; Admin Dose 100 MLS/HR; Start 02/23/19 at 15:30 Cefepime HCl 50 ml @ 100 mls/hr Q12 IVPB Last administered on 02/25/19 20:59; Admin Dose 100 MLS/HR; Start 02/23/19 at 21:00 Furosemide (Lasix) 20 mg DAILY IV ; Start 02/26/19 at 09:00 Scopolamine (Transderm-Scop) 1 patch Q72H PRN TRANSDERM PRN SECRETIONS Last adm inistered on 7/16/19at 22:40; Admin Dose 1 PATCH; Start 02/25/19 at 22:30 WILLA MARQUEZ Feb 26, 2019 09:13
--- NOTE | 2019-02-26 10:38 | PN ---
Date/Time of Note Date/Time of Note DATE: 02/26/19 TIME: 10:37 Assessment/Plan VTE Prophylaxis Risk score (from Ns)>0 risk: 11 [place] [facility] [place] Pharmacological prophylaxis: NA/contraindicated Pharm contraindication: low risk/ambulating Lines/Catheters IV Catheter Type (from [facility]): PICC Line Central line still needed: Yes Urinary Cath still in place: Yes Reason Cath still needed: urinary retention Assessment/Plan Assessment/Plan 1 Severe altered mental status likely secondary to metabolic encephalopathy, likely secondary to CO2 narcosis. The patient is also on antidepressants and loxapine at home. Surprisingly on ABG CO2 levels were not high, CT of the head is negative 2. Hypoxic respiratory failure s/p intubation secondary to pneumonia/CHF 3. Lactic acidosis. Respiratory acidosis. 4. Morbid obesity. 5. Down syndrome. 6. Hypertension. 7. Diabetes. 8. History of ventral hernia repair. 9. Leukocytosis secondary to pneumonia 10. Hypothyroidism 11. KIRIT, more likely due to sepsis 12 low-grade fevers CT of the abdomen and pelvis some mild colitis Assessment/Plan -CPAP trial today and possible extubation -- low dose lasix - replete K - Chest Xray improved -Continue with cefepime/Flagyl/Diflucan -c/w tube feed -Vent management per pulmonary. - cw levothyroxine -cardiology input is appreciated - GI Famotidine BID - dvt Prophylaxsis Result Diagram: 02/26/1951302/26/1914 Results 24hrs Laboratory Tests Test 02/25/19 12:58 02/25/19 16:53 02/25/19 20:40 02/26/19 01:27 Bedside Glucose 115 114 132 143 Test 02/26/19 05:14 02/26/19 09:09 White Blood Count 11.7 H Red Blood Count 5.28 Hemoglobin 14.4 Hematocrit 46.1 Mean Corpuscular 87.3 Volume Mean Corpuscular 27.3 L Hemoglobin Mean Corpuscular 31.2 L Hemoglobin Concent Red Cell 20.0 H Distribution Width Platelet Count 269 Mean Platelet Volume 9.7 Immature 1.700 H Granulocytes % Neutrophils % 85.7 H Lymphocytes % 5.1 L Monocytes % 5.7 Eosinophils % 1.2 Basophils % 0.6 Nucleated Red Blood 0.0 Cells % Immature 0.200 H Granulocytes # Neutrophils # 10.0 H Lymphocytes # 0.6 L Monocytes # 0.7 Eosinophils # 0.1 Basophils # 0.1 Nucleated Red Blood 0.0 Cells # Sodium Level 141 Potassium Level 3.5 Chloride Level 103 Carbon Dioxide Level 30 Anion Gap 8 Blood Urea Nitrogen 32 H Creatinine 0.73 Est Glomerular > 60 Filtrat Rate mL/min Glucose Level 171 Bedside Glucose 147 109 Calcium Level 9.0 Phosphorus Level 3.7 Magnesium Level 2.4 Total Bilirubin 0.4 Direct Bilirubin 0.00 Indirect Bilirubin 0.4 Aspartate Amino 20 Transf (AST/SGOT) Alanine 27 Aminotransferase (AL T/SGPT) Alkaline Phosphatase 39 L Total Protein 6.1 Albumin 3.2 L Globulin 2.90 Albumin/Globulin 1.10 Ratio Subjective 24 Hr Interval Summary Free Text/Dictation Patient is doing much better today. She is awake alert following commands off sedation Currently on CPAP trial Exam/Review of Systems Exam Vitals Vital Signs Date Temp Pulse Resp B/P (MAP) Pulse Ox O2 O2 Flow FiO2 Time Delivery Rate 02/26/19 97 10 101/64 CPAP 10:00 (76) 02/26/19 98 09:00 02/26/19 99.3 08:00 02/26/19 40 05:53 Intake and Output 02/25/19 02/25/19 02/26/19 1515:00 23:00 07:00 IntakeIntake Total 180 ml 450 ml 566 ml OutputOutput Total 700 ml 365 ml 195 ml BalanceBalance -520 ml 85 ml 371 ml Results Results 24hrs Laboratory Tests Test 02/25/19 12:58 02/25/19 16:53 02/25/19 20:40 02/26/19 01:27 Bedside Glucose 115 114 132 143 Test 02/26/19 05:14 02/26/19 09:09 White Blood Count 11.7 H Red Blood Count 5.28 Hemoglobin 14.4 Hematocrit 46.1 Mean Corpuscular 87.3 Volume Mean Corpuscular 27.3 L Hemoglobin Mean Corpuscular 31.2 L Hemoglobin Concent Red Cell 20.0 H Distribution Width Platelet Count 269 Mean Platelet Volume 9.7 Immature 1.700 H Granulocytes % Neutrophils % 85.7 H Lymphocytes % 5.1 L Monocytes % 5.7 Eosinophils % 1.2 Basophils % 0.6 Nucleated Red Blood 0.0 Cells % Immature 0.200 H Granulocytes # Neutrophils # 10.0 H Lymphocytes # 0.6 L Monocytes # 0.7 Eosinophils # 0.1 Basophils # 0.1 Nucleated Red Blood 0.0 Cells # Sodium Level 141 Potassium Level 3.5 Chloride Level 103 Carbon Dioxide Level 30 Anion Gap 8 Blood Urea Nitrogen 32 H Creatinine 0.73 Est Glomerular > 60 Filtrat Rate mL/min Glucose Level 171 Bedside Glucose 147 109 Calcium Level 9.0 Phosphorus Level 3.7 Magnesium Level 2.4 Total Bilirubin 0.4 Direct Bilirubin 0.00 Indirect Bilirubin 0.4 Aspartate Amino 20 Transf (AST/SGOT) Alanine 27 Aminotransferase (AL T/SGPT) Alkaline Phosphatase 39 L Total Protein 6.1 Albumin 3.2 L Globulin 2.90 Albumin/Globulin 1.10 Ratio Medications Medication Current Medications IV Flush (NS 3 ml) 3 ml PER PROTOCOL IV ; Start 02/12/19 at 15:30 Ondansetron HCl (Zofran Inj) 4 mg Q6H PRN IV NAUSEA/VOMITING; Start 02/12/19 at 15:30 Acetaminophen (Tylenol Tab) 650 mg Q6H PRN PO .PAIN 1-3 OR TEMP Last administered on 02/24/19at 01:37; Admin Dose 650 MG; Start 02/12/19 at 15:30 Docusate Sodium (Colace) 100 mg Q12H PRN PO .CONSTIPATION Last administered on 02/21/19at 14:05; Admin Dose 100 MG; Start 02/12/19 at 15:30 Enoxaparin Sodium (Lovenox) 40 mg DAILY SC Last administered on 02/26/19 09:11; Admin Dose 40 MG; Start 02/13/19 at 09:00 Propofol 100 ml @ 3.027 mls/ hr Q12H IV Last administered on 02/25/19at 01:55; Admin Dose 6.054 MLS/HR; Start 02/13/19 at 00:30 Fentanyl 100 ml @ 2.5 mls/hr TITRATE IV Last administered on 02/24/19at 19:21; Admin Dose 3 MLS/HR; Start 02/13/19 at 12:00 Levothyroxine Sodium (Synthroid) 88 mcg BEFORE BREAKFAST PO Last administered on 02/26/19at 06:30; Admin Dose 88 MCG; Start 02/15/19 at 07:00 Miscellaneous Information 1 ea NOTE XX ; Start 02/14/19 at 10:30 Glucose (Glutose) 15 gm Q15M PRN PO DECREASED GLUCOSE; Start 02/14/19 at 10:30 Glucose (Glutose) 22.5 gm Q15M PRN PO DECREASED GLUCOSE; Start 02/14/19 at 10:30 Dextrose (D50w Syringe) 25 ml Q15M PRN IV DECREASED GLUCOSE; Start 02/14/19 at 10:30 Dextrose (D50w Syringe) 50 ml Q15M PRN IV DECREASED GLUCOSE; Start 02/14/19 at 10:30 Glucagon (Glucagen) 1 mg Q15M PRN IM DECREASED GLUCOSE; Start 02/14/19 at 10:30 Glucose (Glutose) 15 gm Q15M PRN BUCCAL DECREASED GLUCOSE; Start 02/14/19 at 10:30 Insulin Aspart (Novolog Insulin Pen) NOVOLOG *MILD* ALGORI... Q4 SC Last administered on 02/26/19at 05:15; Admin Dose 1 UNIT; Start 02/15/19 at 05:00 Midazolam HCl 50 ml @ 1 mls/hr TITRATE IV Last administered on 02/25/19at 06:10; Admin Dose 5 MLS/HR; Start 02/15/19 at 10:00 Docusate Sodium (Colace Liquid Cup) 100 mg BID NGT Last administered on 02/24/19at 21:15; Admin Dose 100 MG; Start 02/15/19 at 11:00 Bisacodyl (Dulcolax Supp) 10 mg DAILY PRN [place] CONSTIPATION Last administered on 02/21/19at 14:06; Admin Dose 10 MG; Start 02/15/19 at 11:00 Famotidine (Pepcid) 20 mg Q12 NGT Last administered on 02/26/19at 09:01; Admin Dose 20 MG; Start 02/18/19 at 21:00 IV Flush (NS 10 ml) 10 ml PRN PRN IV IV PROTOCOL; Start 02/18/19 at 15:30 Fluconazole (Diflucan) 100 mg DAILY PO Last administered on 02/26/19at 09:01; Admin Dose 100 MG; Start 02/19/19 at 12:30 Albuterol (Ventolin Hfa) 4 puff Q6H RESP THERAPY INH Last administered on 02/26/19at 08:24; Admin Dose 4 PUFF; Start 02/20/19 at 20:03 Ipratropium [place] (Atrovent Hfa) 4 puff Q6H RESP THERAPY INH Last administered on 02/26/19 08:24; Admin Dose 4 PUFF; Start 02/20/19 at 20:04 Metronidazole 100 ml @ 100 mls/hr Q8 IVPB Last administered on 02/26/19 05:18; Admin Dose 100 MLS/HR; Start 02/23/19 at 15:30 Cefepime HCl 50 ml @ 100 mls/hr Q12 IVPB Last administered on 02/26/19 09:00; Admin Dose 100 MLS/HR; Start 02/23/19 at 21:00 Furosemide (Lasix) 20 mg DAILY IV Last administered on 02/26/19 09:01; Admin Dose 20 MG; Start 02/26/19 at 09:00 Scopolamine (Transderm-Scop) 1 patch Q72H PRN TRANSDERM PRN SECRETIONS Last administered on 02/25/19 22:40; Admin Dose 1 PATCH; Start 02/25/19 at 22:30 LORNA LYONS MD Feb 26, 2019 10:38
--- NOTE | 2019-02-26 11:56 | CONS ---
Assessment/Plan Assessment/Plan Hospital Course (Demo Recall) IMPRESSION: 1. Congestive heart failure-diastolic acute on chronic 2. Lower extremity edema, assess for congestive heart failure.-preserved EF 3. Tachycardia, improved, status post intubation, likely due to respiratory distress. 4. Abnormal electrocardiogram with right axis deviation and T-wave flattening. -neg trop x 3 5. Down syndrome. 6. Hypothyroidism. 7. Diabetes mellitus. 8. Obstructive sleep apnea. 9. hypotension-remains borderline but stable and off pressors 10. Resp failure s/p intubation 11.encephalopathy 12. Fevers Recc: -ICU -Continue lasix diuresis as tolerated now decreased to daily and follow volume status closely -Contineu abx's and f/u cx data -Continue bronchodilators -Continue scolpolamine patch -Wean vent as tolerated Consultation Date/Type/Reason Admit Date/Time Feb 12, 2019 at 12:24 Initial Consult Date 02/12/19 Type of Consult Cardiology Reason for Consultation CHF Requesting Provider: LORNA LYONS MD Date/Time of Note DATE: 02/26/19 TIME: 11:53 Exam/Review of Systems Vital Signs Vitals Vital Signs Date Temp Pulse Resp B/P (MAP) Pulse Ox O2 O2 Flow FiO2 Time Delivery Rate 02/26/19 103 23 132/82 11:30 (99) 02/26/19 98 Mechanical 11:00 Ventilator 02/26/19 40 08:00 02/26/19 99.3 08:00 Intake and Output 02/25/19 02/25/19 02/26/19 1515:00 23:00 07:00 IntakeIntake Total 180 ml 450 ml 616 ml OutputOutput Total 700 ml 365 ml 245 ml BalanceBalance -520 ml 85 ml 371 ml Exam Exam Review of Systems: CONSTITUTIONAL: No fevers, chills. PULMONARY: No sob CARDIOVASCULAR: No chest pain/palpitations GASTROINTESTINAL: No nausea/vomiting. GENITOURINARY: No hematuria/dysuria. MUSCULOSKELETAL: No myagias/arthalgias. PSYCHIATRIC: The patient denies depression. NEUROLOGIC: No weakness Constitutional: alert Psych: no complaints Head: normocephalic ENMT: mucosa pink and moist Neck: supple, jvd (9 cm water) Respiratory: diminished breath sounds (at bases/B) Cardiovascular: regular rate and rhythm Gastrointestinal: soft, non-tender Musculoskeletal: muscle tone (normal) Extremities: edema (none) Neurological: other (No focal deficits) Labs Result Diagram: 02/26/19 0514 02/26/19 0514 Results 24hrs Laboratory Tests Test 02/25/19 12:58 02/25/19 16:53 02/25/19 20:40 02/26/19 01:27 Bedside Glucose 115 114 132 143 Test 02/26/19 05:14 02/26/19 09:09 White Blood Count 11.7 H Red Blood Count 5.28 Hemoglobin 14.4 Hematocrit 46.1 Mean Corpuscular 87.3 Volume Mean Corpuscular 27.3 L Hemoglobin Mean Corpuscular 31.2 L Hemoglobin Concent Red Cell 20.0 H Distribution Width Platelet Count 269 Mean Platelet Volume 9.7 Immature 1.700 H Granulocytes % Neutrophils % 85.7 H Lymphocytes % 5.1 L Monocytes % 5.7 Eosinophils % 1.2 Basophils % 0.6 Nucleated Red Blood 0.0 Cells % Immature 0.200 H Granulocytes # Neutrophils # 10.0 H Lymphocytes # 0.6 L Monocytes # 0.7 Eosinophils # 0.1 Basophils # 0.1 Nucleated Red Blood 0.0 Cells # Sodium Level 141 Potassium Level 3.5 Chloride Level 103 Carbon Dioxide Level 30 Anion Gap 8 Blood Urea Nitrogen 32 H Creatinine 0.73 Est Glomerular > 60 Filtrat Rate mL/min Glucose Level 171 Bedside Glucose 147 109 Calcium Level 9.0 Phosphorus Level 3.7 Magnesium Level 2.4 Total Bilirubin 0.4 Direct Bilirubin 0.00 Indirect Bilirubin 0.4 Aspartate Amino 20 Transf (AST/SGOT) Alanine 27 Aminotransferase (AL T/SGPT) Alkaline Phosphatase 39 L Total Protein 6.1 Albumin 3.2 L Globulin 2.90 Albumin/Globulin 1.10 Ratio Medications Medications Current Medications IV Flush (NS 3 ml) 3 ml PER PROTOCOL IV ; Start 02/12/19 at 15:30 Ondansetron HCl (Zofran Inj) 4 mg Q6H PRN IV NAUSEA/VOMITING; Start 02/12/19 at 15:30 Acetaminophen (Tylenol Tab) 650 mg Q6H PRN PO .PAIN 1-3 OR TEMP Last administered on 02/24/19at 01:37; Admin Dose 650 MG; Start 02/12/19 at 15:30 Docusate Sodium (Colace) 100 mg Q12H PRN PO .CONSTIPATION Last administered on 02/21/19at 14:05; Admin Dose 100 MG; Start 02/12/19 at 15:30 Enoxaparin Sodium (Lovenox) 40 mg DAILY SC Last administered on 02/26/19at 09:11; Admin Dose 40 MG; Start 02/13/19 at 09:00 Propofol 100 ml @ 3.027 mls/ hr Q12H IV Last administered on 02/25/19at 01:55; Admin Dose 6.054 MLS/HR; Start 02/13/19 at 00:30 Fentanyl 100 ml @ 2.5 mls/hr TITRATE IV Last administered on 02/24/19at 19:21; Admin Dose 3 MLS/HR; Start 02/13/19 at 12:00 Levothyroxine Sodium (Synthroid) 88 mcg BEFORE BREAKFAST PO Last administered on 02/26/19at 06:30; Admin Dose 88 MCG; Start 02/15/19 at 07:00 Miscellaneous Information 1 ea NOTE XX ; Start 02/14/19 at 10:30 Glucose (Glutose) 15 gm Q15M PRN PO DECREASED GLUCOSE; Start 02/14/19 at 10:30 Glucose (Glutose) 22.5 gm Q15M PRN PO DECREASED GLUCOSE; Start 02/14/19 at 10:30 Dextrose (D50w Syringe) 25 ml Q15M PRN IV DECREASED GLUCOSE; Start 02/14/19 at 10:30 Dextrose (D50w Syringe) 50 ml Q15M PRN IV DECREASED GLUCOSE; Start 02/14/19 at 10:30 Glucagon (Glucagen) 1 mg Q15M PRN IM DECREASED GLUCOSE; Start 02/14/19 at 10:30 Glucose (Glutose) 15 gm Q15M PRN BUCCAL DECREASED GLUCOSE; Start 02/14/19 at 10:30 Insulin Aspart (Novolog Insulin Pen) NOVOLOG *MILD* ALGORI... Q4 SC Last administered on 02/26/19at 05:15; Admin Dose 1 UNIT; Start 02/15/19 at 05:00 Midazolam HCl 50 ml @ 1 mls/hr TITRATE IV Last administered on 02/25/19at 06:10; Admin Dose 5 MLS/HR; Start 02/15/19 at 10:00 Docusate Sodium (Colace Liquid Cup) 100 mg BID NGT Last administered on 02/24/19 21:15; Admin Dose 100 MG; Start 02/15/19 at 11:00 Bisacodyl (Dulcolax Supp) 10 mg DAILY PRN [place] CONSTIPATION Last administered on 02/21/19 14:06; Admin Dose 10 MG; Start 02/15/19 at 11:00 Famotidine (Pepcid) 20 mg Q12 NGT Last administered on 02/26/19 09:01; Admin Dose 20 MG; Start 02/18/19 at 21:00 IV Flush (NS 10 ml) 10 ml PRN PRN IV IV PROTOCOL; Start 02/18/19 at 15:30 Fluconazole (Diflucan) 100 mg DAILY PO Last administered on 02/26/19 09:01; Admin Dose 100 MG; Start 02/19/19 at 12:30 Albuterol (Ventolin Hfa) 4 puff Q6H RESP THERAPY INH Last administered on 02/26/19 08:24; Admin Dose 4 PUFF; Start 02/20/19 at 20:03 Ipratropium [place] (Atrovent Hfa) 4 puff Q6H RESP THERAPY INH Last administered on 02/26/19 08:24; Admin Dose 4 PUFF; Start 02/20/19 at 20:04 Metronidazole 100 ml @ 100 mls/hr Q8 IVPB Last administered on 02/26/19 05:18; Admin Dose 100 MLS/HR; Start 02/23/19 at 15:30 Cefepime HCl 50 ml @ 100 mls/hr Q12 IVPB Last administered on 02/26/19 09:00; Admin Dose 100 MLS/HR; Start 02/23/19 at 21:00 Furosemide (Lasix) 20 mg DAILY IV Last administered on 02/26/19 09:01; Admin Dose 20 MG; Start 02/26/19 at 09:00 Scopolamine (Transderm-Scop) 1 patch Q72H PRN TRANSDERM PRN SECRETIONS Last administered on 02/25/19 22:40; Admin Dose 1 PATCH; Start 02/25/19 at 22:30 SHARIF TORRES 17, 2019 11:56
[2019-02-27] VITALS (51 sets, daily range): BP systolic 84–136; BP diastolic 37–73; PULSE 65–100; RESP 12–32
[2019-02-27] MEDS: INSULIN ASPART [NOVOLOG] 3 ML PEN SC SCH ×6 (01:00→21:00)
[2019-02-27] MEDS: IPRATROPIUM (HFA) 12.9 GM INHALER INH SCH ×4 (01:44→19:28)
[2019-02-27] MEDS: ALBUTEROL HFA 8 GM INHALER INH SCH ×4 (01:44→19:28)
[2019-02-27] MEDS: DEXMEDETOMIDINE IN DEXTROSE 5% 50 ML IV SCH ×2 (04:23→19:53)
[2019-02-27] MEDS: LEVOTHYROXINE 88 MCG TAB PO SCH (05:53)
[2019-02-27] MEDS: metroNIDAZOLE 500 MG/NS (PMX) 100 ML IVPB SCH ×3 (05:54→21:48)
--- NOTE | 2019-02-27 07:13 | PN ---
DATE: 02/26/2019 SUBJECTIVE: The patient looks comfortable on SIMV mode. She is awake, off sedation and in no distre ss. No fevers overnight. WBC 11.7, platelets 269, neutrophils 85.7, BUN 32, creatinine 0.73. Sputum culture repeated 2 days ago growing yeast. Stool for C. difficile pending. INDWELLINGS: Endotracheal tube, NG tube, Nelson catheter, PICC line. ANTIMICROBIALS: The patient remains on: 1. Cefepime. 2. Fluconazole. 3. Flagyl. PHYSICAL EXAMINATION: GENERAL: This is a chronically ill-appearing, morbidly obese, middle-aged woman who is awake, in no distress. HEENT: Head atraumatic, normocephalic. NECK: Obese. CHEST: Rise symmetrical. Breath sounds diminished to bases. HEART: S1, S2. ABDOMEN: Obese, soft, bowel sounds present. EXTREMITIES: Without cyanosis. ASSESSMENT: 1. Resolving sepsis. 2. Resolving pneumonia. 3. Colitis, possible Clostridium difficile. 4. Acute respiratory failure. 5. Down syndrome. 6. Diabetes. PLAN: The patient remains stable. Continue present care, antibiotics. Await for stool cultures. C ontinue vent management as per pulmonary. Dictated By: RUDOLPH YOON LIFE CLAIMS EXAMINER for ЕКАТЕРИНА AGUIRRE/MICHAEL Conf#: [id number] DID#: [id number]
[2019-02-27] MEDS: DOCUSATE SODIUM 10 MG/ML (10ML CUP) NGT SCH (08:42)
[2019-02-27] MEDS: FLUCONAZOLE 100 MG TAB PO SCH (09:04)
[2019-02-27] MEDS: FUROSEMIDE 20 MG INJ IV SCH (09:04)
[2019-02-27] MEDS: CEFEPIME 1GM/50 ML (PMX) 50 ML IVPB SCH ×2 (09:04→21:06)
[2019-02-27] MEDS: FAMOTIDINE 20 MG TAB NGT SCH ×2 (09:05→21:06)
[2019-02-27] MEDS: ENOXAPARIN 40 MG/0.4 ML SYG SC SCH (09:15)
--- NOTE | 2019-02-27 09:20 | CONS ---
Assessment/Plan Assessment/Plan Assessment/Plan (Daily) Ventilator setting; SIMV of 12, pressure support 15, PEEP of 5, 40% FiO2. Patient has been off sedation. Assessment and recommendations; 1. Patient with history of Down syndrome admitted with severe bilateral pneumonia with marked radiological improvement. 2. Likely underlying obesity/hypoventilation syndrome compounded by Down syndrome. Per patient's mother, patient has been lethargic for the last several weeks possibly indicative of underlying hypercapnia. 3. History of diabetes. 4. History of hypothyroidism. 5. Mild CHF. Give another CPAP trial. Continue current supportive care. Continue current antibiotics. Further recommendations once patient is on CPAP mode. I again had a detailed discussion with patient's mother at bedside and answered all her questions. Patient's care coordinated with respiratory therapist and patient's nurse. Consultation Date/Type/Reason Admit Date/Time Feb 12, 2019 at 12:24 Initial Consult Date Type of Consult Pulmonary/critical care Patient's condition remains critical. Still on fairly high FiO2. Patient however has remained hemodynamically stable. Patient does become agitated off sedation. General exam; young female, morbidly obese, orally intubated and sedated. Currently in no distress. Requesting Provider: LORNA LYONS MD Date/Time of Note DATE: 02/27/19 TIME: 09:16 24 HR Interval Summary Free Text/Dictation Patient's condition is critical but stable. Remains awake and fairly responsive. Has remained hemodynamically stable. General exam; young woman, with obvious Down's feces. Orally intubated. Awake. Currently in no distress. Exam/Review of Systems Exam Vitals Vital Signs Date Temp Pulse Resp B/P (MAP) Pulse Ox O2 O2 Flow FiO2 Time Delivery Rate 02/27/19 87 08:00 02/27/19 16 93/60 (71) 100 Mechanical 06:00 Ventilator 02/27/19 40 05:00 02/27/19 99.1 04:00 Intake and Output 02/26/19 02/26/19 02/27/19 1414:59 22:59 06:59 IntakeIntake Total 370.090 ml 705.405 ml 555.405 ml OutputOutput Total 850 ml 555 ml 310 ml BalanceBalance -479.910 ml 150.405 ml 245.405 ml Exam H EENT exam; supple neck, no lymphadenopathy. JVD difficult to see because of short neck. Orally intubated. Pupils are small bilaterally. No neck masses. Nasogastric tube in place. Chest exam; diminished but clear breath sounds. S1-S2 audible, no murmurs. Regular rhythm. Abdomen exam; soft, no organomegaly. Protuberant. Bowel sounds audible. Extremity exam; no peripheral edema. SOCIALLY RESPONSIBLE INVESTMENT ADVISER exam; patient awake and follows simple commands. Results Result Diagram: 02/27/19 0444 02/27/19 0444 Results 24hrs Laboratory Tests Test 02/26/19 13:11 02/26/19 16:42 02/26/19 20:17 02/27/19 01:03 Bedside Glucose 129 120 112 120 Test 02/27/19 04:29 02/27/19 04:44 02/27/19 09:04 Bedside Glucose 136 107 White Blood Count 11.1 H Red Blood Count 5.12 Hemoglobin 14.0 Hematocrit 45.0 Mean Corpuscular 87.9 Volume Mean Corpuscular 27.3 L Hemoglobin Mean Corpuscular 31.1 L Hemoglobin Concent Red Cell 19.9 H Distribution Width Platelet Count 258 Mean Platelet Volume 9.5 Immature 2.200 H Granulocytes % Neutrophils % 83.4 H Lymphocytes % 6.7 L Monocytes % 5.3 Eosinophils % 1.6 Basophils % 0.8 Nucleated Red Blood 0.0 Cells % Immature 0.250 H Granulocytes # Neutrophils # 9.3 H Lymphocytes # 0.7 L Monocytes # 0.6 Eosinophils # 0.2 Basophils # 0.1 Nucleated Red Blood 0.0 Cells # Sodium Level 140 Potassium Level 3.5 Chloride Level 100 Carbon Dioxide Level 33 H Anion Gap 7 Blood Urea Nitrogen 29 H Creatinine 0.73 Est Glomerular > 60 Filtrat Rate mL/min Glucose Level 149 Calcium Level 8.9 Phosphorus Level 4.4 Magnesium Level 2.7 H Total Bilirubin 0.4 Direct Bilirubin 0.00 Indirect Bilirubin 0.4 Aspartate Amino 23 Transf (AST/SGOT) Alanine 25 Aminotransferase (AL T/SGPT) Alkaline Phosphatase 39 L Total Protein 6.4 Albumin 3.3 Globulin 3.10 Albumin/Globulin 1.06 Ratio Medications Medication Current Medications IV Flush (NS 3 ml) 3 ml PER PROTOCOL IV ; Start 02/12/19 at 15:30 Ondansetron HCl (Zofran Inj) 4 mg Q6H PRN IV NAUSEA/VOMITING; Start 02/12/19 at 15:30 Acetaminophen (Tylenol Tab) 650 mg Q6H PRN PO .PAIN 1-3 OR TEMP Last administered on 02/24/19at 01:37; Admin Dose 650 MG; Start 02/12/19 at 15:30 Docusate Sodium (Colace) 100 mg Q12H PRN PO .CONSTIPATION Last administered on 02/21/19at 14:05; Admin Dose 100 MG; Start 02/12/19 at 15:30 Enoxaparin Sodium (Lovenox) 40 mg DAILY SC Last administered on 02/26/19at 09:11; Admin Dose 40 MG; Start 02/13/19 at 09:00 Propofol 100 ml @ 3.027 mls/ hr Q12H IV Last administered on 02/25/19at 01:55; Admin Dose 6.054 MLS/HR; Start 02/13/19 at 00:30 Fentanyl 100 ml @ 2.5 mls/hr TITRATE IV Last administered on 02/24/19at 19:21; Admin Dose 3 MLS/HR; Start 02/13/19 at 12:00 Levothyroxine Sodium (Synthroid) 88 mcg BEFORE BREAKFAST PO Last administered on 02/27/19at 05:53; Admin Dose 88 MCG; Start 02/15/19 at 07:00 Miscellaneous Information 1 ea NOTE XX ; Start 02/14/19 at 10:30 Glucose (Glutose) 15 gm Q15M PRN PO DECREASED GLUCOSE; Start 02/14/19 at 10:30 Glucose (Glutose) 22.5 gm Q15M PRN PO DECREASED GLUCOSE; Start 02/14/19 at 10:30 Dextrose (D50w Syringe) 25 ml Q15M PRN IV DECREASED GLUCOSE; Start 02/14/19 at 10:30 Dextrose (D50w Syringe) 50 ml Q15M PRN IV DECREASED GLUCOSE; Start 02/14/19 at 10:30 Glucagon (Glucagen) 1 mg Q15M PRN IM DECREASED GLUCOSE; Start 02/14/19 at 10:30 Glucose (Glutose) 15 gm Q15M PRN BUCCAL DECREASED GLUCOSE; Start 02/14/19 at 10:30 Insulin Aspart (Novolog Insulin Pen) NOVOLOG *MILD* ALGORI... Q4 SC Last administered on 02/26/19at 05:15; Admin Dose 1 UNIT; Start 02/15/19 at 05:00 Midazolam HCl 50 ml @ 1 mls/hr TITRATE IV Last administered on 02/25/19 06:10; Admin Dose 5 MLS/HR; Start 02/15/19 at 10:00 Docusate Sodium (Colace Liquid Cup) 100 mg BID NGT Last administered on 02/24/19 21:15; Admin Dose 100 MG; Start 02/15/19 at 11:00 Bisacodyl (Dulcolax Supp) 10 mg DAILY PRN [place] CONSTIPATION Last administered on 02/21/19 14:06; Admin Dose 10 MG; Start 02/15/19 at 11:00 Famotidine (Pepcid) 20 mg Q12 NGT Last administered on 02/27/19 09:05; Admin Dose 20 MG; Start 02/18/19 at 21:00 IV Flush (NS 10 ml) 10 ml PRN PRN IV IV PROTOCOL; Start 02/18/19 at 15:30 Fluconazole (Diflucan) 100 mg DAILY PO Last administered on 02/27/19 09:04; Admin Dose 100 MG; Start 02/19/19 at 12:30 Albuterol (Ventolin Hfa) 4 puff Q6H RESP THERAPY INH Last administered on 02/27/19 07:54; Admin Dose 4 PUFF; Start 02/20/19 at 20:03 Ipratropium [place] (Atrovent Hfa) 4 puff Q6H RESP THERAPY INH Last administered on 02/27/19 07:54; Admin Dose 4 PUFF; Start 02/20/19 at 20:04 Metronidazole 100 ml @ 100 mls/hr Q8 IVPB Last administered on 02/27/19 05:54; Admin Dose 100 MLS/HR; Start 02/23/19 at 15:30 Cefepime HCl 50 ml @ 100 mls/hr Q12 IVPB Last administered on 02/27/19 09:04; Admin Dose 100 MLS/HR; Start 02/23/19 at 21:00 Furosemide (Lasix) 20 mg DAILY IV Last administered on 02/27/19 09:04; Admin Dose 20 MG; Start 02/26/19 at 09:00 Scopolamine (Transderm-Scop) 1 patch Q72H PRN TRANSDERM PRN SECRETIONS Last administered on 7/16/19at 22:40; Admin Dose 1 PATCH; Start 02/25/19 at 22:30 WILLA MARQUEZ Feb 27, 2019 09:20
--- NOTE | 2019-02-27 09:59 | PN ---
Date/Time of Note Date/Time of Note DATE: 02/27/19 TIME: 09:59 Assessment/Plan VTE Prophylaxis Risk score (from Ns)>0 risk: 12 SCD applied (from Ns): Yes Pharmacological prophylaxis: NA/contraindicated Pharm contraindication: low risk/ambulating Lines/Catheters IV Catheter Type (from Nrs): PICC Line Central line still needed: Yes Urinary Cath still in place: Yes Reason Cath still needed: urinary retention Assessment/Plan Assessment/Plan 1 Severe altered mental status likely secondary to metabolic encephalopathy, likely secondary to CO2 narcosis. The patient is also on antidepressants and loxapine at home. Surprisingly on ABG CO2 levels were not high, CT of the head is negative, now awake,alert and follows commands 2. Hypoxic respiratory failure s/p intubation secondary to pneumonia/CHF 3. Lactic acidosis. Respiratory acidosis. 4. Morbid obesity. 5. Down syndrome. 6. Hypertension. 7. Diabetes. 8. History of ventral hernia repair. 9. Leukocytosis secondary to pneumonia 10. Hypothyroidism 11. KIRIT, more likely due to sepsis 12 low-grade fevers CT of the abdomen and pelvis some mild colitis 13 diarrhoea? Assessment/Plan -CPAP trial again today per pulmonary difficult weaning as get tachpnic and low volumes -- low dose lasix - c diff pending. colce not given - Chest Xray improved -Continue with cefepime/Flagyl/Diflucan -c/w tube feed -Vent management per pulmonary. - cw levothyroxine -cardiology input is appreciated - GI Famotidine BID - dvt Prophylaxsis Result Diagram: 02/27/194 02/27/194 Results 24hrs Laboratory Tests Test 02/26/19 13:11 02/26/19 16:42 02/26/19 20:17 02/27/19 01:03 Bedside Glucose 129 120 112 120 Test 02/27/19 04:29 02/27/19 04:44 02/27/19 09:04 Bedside Glucose 136 107 White Blood Count 11.1 H Red Blood Count 5.12 Hemoglobin 14.0 Hematocrit 45.0 Mean Corpuscular 87.9 Volume Mean Corpuscular 27.3 L Hemoglobin Mean Corpuscular 31.1 L Hemoglobin Concent Red Cell 19.9 H Distribution Width Platelet Count 258 Mean Platelet Volume 9.5 Immature 2.200 H Granulocytes % Neutrophils % 83.4 H Lymphocytes % 6.7 L Monocytes % 5.3 Eosinophils % 1.6 Basophils % 0.8 Nucleated Red Blood 0.0 Cells % Immature 0.250 H Granulocytes # Neutrophils # 9.3 H Lymphocytes # 0.7 L Monocytes # 0.6 Eosinophils # 0.2 Basophils # 0.1 Nucleated Red Blood 0.0 Cells # Sodium Level 140 Potassium Level 3.5 Chloride Level 100 Carbon Dioxide Level 33 H Anion Gap 7 Blood Urea Nitrogen 29 H Creatinine 0.73 Est Glomerular > 60 Filtrat Rate mL/min Glucose Level 149 Calcium Level 8.9 Phosphorus Level 4.4 Magnesium Level 2.7 H Total Bilirubin 0.4 Direct Bilirubin 0.00 Indirect Bilirubin 0.4 Aspartate Amino 23 Transf (AST/SGOT) Alanine 25 Aminotransferase (AL T/SGPT) Alkaline Phosphatase 39 L Total Protein 6.4 Albumin 3.3 Globulin 3.10 Albumin/Globulin 1.06 Ratio Subjective 24 Hr Interval Summary Free Text/Dictation Currently off sedation CPAP today Exam/Review of Systems Exam Vitals Vital Signs Date Temp Pulse Resp B/P (MAP) Pulse Ox O2 O2 Flow FiO2 Time Delivery Rate 02/27/19 87 08:00 02/27/19 16 93/60 (71) 100 Mechanical 06:00 Ventilator 02/27/19 40 05:00 02/27/19 99.1 04:00 Intake and Output 02/26/19 02/26/19 02/27/19 1515:00 23:00 07:00 IntakeIntake Total 375.135 ml 650.360 ml 555.405 ml OutputOutput Total 875 ml 480 ml 310 ml BalanceBalance -499.865 ml 170.360 ml 245.405 ml Exam Constitutional: obese, follows commands off sedation Neck: supple Respiratory: diminished breath sounds Cardiovascular: regular rate and rhythm Gastrointestinal: soft Musculoskeletal: swelling; No nl extremities to inspection, No nl gait and stance, No joint tenderness, No muscle tone, No muscle weakness, No range of motion, No spine non-tender, No other Results Results Results 24hrs Laboratory Tests Test 02/26/19 13:11 02/26/19 16:42 02/26/19 20:17 02/27/19 01:03 Bedside Glucose 129 120 112 120 Test 02/27/19 04:29 02/27/19 04:44 02/27/19 09:04 Bedside Glucose 136 107 White Blood Count 11.1 H Red Blood Count 5.12 Hemoglobin 14.0 Hematocrit 45.0 Mean Corpuscular 87.9 Volume Mean Corpuscular 27.3 L Hemoglobin Mean Corpuscular 31.1 L Hemoglobin Concent Red Cell 19.9 H Distribution Width Platelet Count 258 Mean Platelet Volume 9.5 Immature 2.200 H Granulocytes % Neutrophils % 83.4 H Lymphocytes % 6.7 L Monocytes % 5.3 Eosinophils % 1.6 Basophils % 0.8 Nucleated Red Blood 0.0 Cells % Immature 0.250 H Granulocytes # Neutrophils # 9.3 H Lymphocytes # 0.7 L Monocytes # 0.6 Eosinophils # 0.2 Basophils # 0.1 Nucleated Red Blood 0.0 Cells # Sodium Level 140 Potassium Level 3.5 Chloride Level 100 Carbon Dioxide Level 33 H Anion Gap 7 Blood Urea Nitrogen 29 H Creatinine 0.73 Est Glomerular > 60 Filtrat Rate mL/min Glucose Level 149 Calcium Level 8.9 Phosphorus Level 4.4 Magnesium Level 2.7 H Total Bilirubin 0.4 Direct Bilirubin 0.00 Indirect Bilirubin 0.4 Aspartate Amino 23 Transf (AST/SGOT) Alanine 25 Aminotransferase (AL T/SGPT) Alkaline Phosphatase 39 L Total Protein 6.4 Albumin 3.3 Globulin 3.10 Albumin/Globulin 1.06 Ratio Medications Medication Current Medications IV Flush (NS 3 ml) 3 ml PER PROTOCOL IV ; Start 02/12/19 at 15:30 Ondansetron HCl (Zofran Inj) 4 mg Q6H PRN IV NAUSEA/VOMITING; Start 02/12/19 at 15:30 Acetaminophen (Tylenol Tab) 650 mg Q6H PRN PO .PAIN 1-3 OR TEMP Last administered on 02/24/19at 01:37; Admin Dose 650 MG; Start 02/12/19 at 15:30 Docusate Sodium (Colace) 100 mg Q12H PRN PO .CONSTIPATION Last administered on 02/21/19at 14:05; Admin Dose 100 MG; Start 02/12/19 at 15:30; Status Hold Enoxaparin Sodium (Lovenox) 40 mg DAILY SC Last administered on 02/27/19at 09:15; Admin Dose 40 MG; Start 02/13/19 at 09:00 Propofol 100 ml @ 3.027 mls/ hr Q12H IV Last administered on 02/25/19at 01:55; Admin Dose 6.054 MLS/HR; Start 02/13/19 at 00:30 Fentanyl 100 ml @ 2.5 mls/hr TITRATE IV Last administered on 02/24/19at 19:21; Admin Dose 3 MLS/HR; Start 02/13/19 at 12:00 Levothyroxine Sodium (Synthroid) 88 mcg BEFORE BREAKFAST PO Last administered on 02/27/19at 05:53; Admin Dose 88 MCG; Start 02/15/19 at 07:00 Miscellaneous Information 1 ea NOTE XX ; Start 02/14/19 at 10:30 Glucose (Glutose) 15 gm Q15M PRN PO DECREASED GLUCOSE; Start 02/14/19 at 10:30 Glucose (Glutose) 22.5 gm Q15M PRN PO DECREASED GLUCOSE; Start 02/14/19 at 10:30 Dextrose (D50w Syringe) 25 ml Q15M PRN IV DECREASED GLUCOSE; Start 02/14/19 at 10:30 Dextrose (D50w Syringe) 50 ml Q15M PRN IV DECREASED GLUCOSE; Start 02/14/19 at 10:30 Glucagon (Glucagen) 1 mg Q15M PRN IM DECREASED GLUCOSE; Start 02/14/19 at 10:30 Glucose (Glutose) 15 gm Q15M PRN BUCCAL DECREASED GLUCOSE; Start 02/14/19 at 10:30 Insulin Aspart (Novolog Insulin Pen) NOVOLOG *MILD* ALGORI... Q4 SC Last administered on 02/26/19at 05:15; Admin Dose 1 UNIT; Start 02/15/19 at 05:00 Midazolam HCl 50 ml @ 1 mls/hr TITRATE IV Last administered on 02/25/19at 06:10; Admin Dose 5 MLS/HR; Start 02/15/19 at 10:00 Docusate Sodium (Colace Liquid Cup) 100 mg BID NGT Last administered on 02/24/19at 21:15; Admin Dose 100 MG; Start 02/15/19 at 11:00; Status Hold Bisacodyl (Dulcolax Supp) 10 mg DAILY PRN [place] CONSTIPATION Last administered on 02/21/19at 14:06; Admin Dose 10 MG; Start 02/15/19 at 11:00 Famotidine (Pepcid) 20 mg Q12 NGT Last administered on 02/27/19at 09:05; Admin Dose 20 MG; Start 02/18/19 at 21:00 IV Flush (NS 10 ml) 10 ml PRN PRN IV IV PROTOCOL; Start 02/18/19 at 15:30 Fluconazole (Diflucan) 100 mg DAILY PO Last administered on 02/27/19 09:04; Admin Dose 100 MG; Start 02/19/19 at 12:30 Albuterol (Ventolin Hfa) 4 puff Q6H RESP THERAPY INH Last administered on 02/27/19 07:54; Admin Dose 4 PUFF; Start 02/20/19 at 20:03 Ipratropium [place] (Atrovent Hfa) 4 puff Q6H RESP THERAPY INH Last administered on 02/27/19 07:54; Admin Dose 4 PUFF; Start 02/20/19 at 20:04 Metronidazole 100 ml @ 100 mls/hr Q8 IVPB Last administered on 02/27/19 05:54; Admin Dose 100 MLS/HR; Start 02/23/19 at 15:30 Cefepime HCl 50 ml @ 100 mls/hr Q12 IVPB Last administered on 02/27/19 09:04; Admin Dose 100 MLS/HR; Start 02/23/19 at 21:00 Furosemide (Lasix) 20 mg DAILY IV Last administered on 02/27/19 09:04; Admin Dose 20 MG; Start 02/26/19 at 09:00 Scopolamine (Transderm-Scop) 1 patch Q72H PRN TRANSDERM PRN SECRETIONS Last administered on 02/25/19 22:40; Admin Dose 1 PATCH; Start 02/25/19 at 22:30 LORNA LYONS MD Feb 27, 2019 09:59
[2019-02-27] MEDS: PROPOFOL 100 ML IV SCH ×2 (12:12→21:49)
[2019-02-27] MEDS: ACETAMINOPHEN 325 MG TAB PO PRN (14:40)
--- NOTE | 2019-02-27 14:55 | PN ---
DATE: 02/27/2019 SUBJECTIVE: No acute changes overnight. Patient is awake, looks comfortable on vent. She failed we aning trials. No fevers overnight. MICROBIOLOGY: Stool for C. diff came back negative. Sputum culture growing yeast. INDWELLINGS: Endotracheal tube, NG tube, Nelson catheter and PICC line. ANTIMICROBIALS: The patient remains on cefepime and Flagyl. PHYSICAL EXAMINATION: GENERAL: This is a chronically ill-appearing, morbidly obese, middle-aged woman who is intubated and in no distress. HEENT: Head atraumatic, normocephalic. NECK: Obese and short. CHEST: Rise symmetrical. Breath sounds diminished to bases. HEART: S1, S2. ABDOMEN: Obese, soft, bowel tones present. EXTREMITIES: With trace edema. ASSESSMENT: 1. Acute hypoxemic respiratory failure. 2. Resolving pneumonia. 3. Colitis per CT of the abdomen with stool cultures came back negative for C. diff. 4. Down's syndrome. 5. Diabetes. PLAN: The patient remains stable. We will discontinue cefepime, keep her on Flagyl. Continue weani ng trials as per pulmonology recommendations. Dictated By: RUDOLPH YOON [employer]HOUSE [employer] for ЕКАТЕРИНА AGUIRRE/NTS Conf#: [id number] DID#: [id number] CC: LORNA LYONS;*End*
[2019-02-28] VITALS (46 sets, daily range): BP systolic 85–118; BP diastolic 43–71; PULSE 66–102; RESP 12–36
[2019-02-28] MEDS: INSULIN ASPART [NOVOLOG] 3 ML PEN SC SCH ×6 (01:00→20:04)
[2019-02-28] MEDS: IPRATROPIUM (HFA) 12.9 GM INHALER INH SCH ×4 (01:07→19:37)
[2019-02-28] MEDS: ALBUTEROL HFA 8 GM INHALER INH SCH ×4 (01:07→19:37)
[2019-02-28] MEDS: DEXMEDETOMIDINE IN DEXTROSE 5% 50 ML IV SCH ×3 (05:06→22:09)
[2019-02-28] MEDS: metroNIDAZOLE 500 MG/NS (PMX) 100 ML IVPB SCH ×3 (06:04→21:02)
[2019-02-28] MEDS: LEVOTHYROXINE 88 MCG TAB PO SCH (06:05)
[2019-02-28] MEDS: FAMOTIDINE 20 MG TAB NGT SCH ×2 (09:09→20:04)
[2019-02-28] MEDS: FUROSEMIDE 20 MG INJ IV SCH (09:09)
[2019-02-28] MEDS: FLUCONAZOLE 100 MG TAB PO SCH (09:09)
[2019-02-28] MEDS: ENOXAPARIN 40 MG/0.4 ML SYG SC SCH (09:12)
--- NOTE | 2019-02-28 10:23 | CONS ---
Assessment/Plan Assessment/Plan Hospital Course (Demo Recall) IMPRESSION: 1. Congestive heart failure-diastolic acute on chronic 2. Lower extremity edema, assess for congestive heart failure.-preserved EF 3. Tachycardia, improved, status post intubation, likely due to respiratory distress. 4. Abnormal electrocardiogram with right axis deviation and T-wave flattening. -neg trop x 3 5. Down syndrome. 6. Hypothyroidism. 7. Diabetes mellitus. 8. Obstructive sleep apnea. 9. hypotension-remains borderline but stable and off pressors 10. Resp failure s/p intubation 11.encephalopathy 12. Fevers Recc: -ICU -Continue lasix diuresis as tolerated now decreased to daily and follow volume status closely -Contineu abx's and f/u cx data -Continue bronchodilators -Continue scolpolamine patch -Wean vent as tolerated with possible need to progress to trach Consultation Date/Type/Reason Admit Date/Time Feb 12, 2019 at 12:24 Initial Consult Date 02/12/19 Type of Consult Cardiology Reason for Consultation Hypotension Requesting Provider: LORNA LYONS MD Date/Time of Note DATE: 02/28/19 TIME: 10:20 Exam/Review of Systems Vital Signs Vitals Vital Signs Date Temp Pulse Resp B/P (MAP) Pulse Ox O2 O2 Flow FiO2 Time Delivery Rate 02/28/19 87 13 85/50 (62) Mechanical 08:00 Ventilator 02/28/19 98.3 07:30 02/28/19 92 07:00 02/28/19 30 05:00 Intake and Output 02/27/19 02/27/19 02/28/19 1515:00 23:00 07:00 IntakeIntake Total 590.270 ml 590.360 ml 590.270 ml OutputOutput Total 725 ml 495 ml 595 ml BalanceBalance -134.730 ml 95.360 ml -4.730 ml Exam Exam Review of Systems: CONSTITUTIONAL: No fevers, chills. PULMONARY: No sob CARDIOVASCULAR: No chest pain/palpitations GASTROINTESTINAL: No nausea/vomiting. GENITOURINARY: No hematuria/dysuria. MUSCULOSKELETAL: No myagias/arthalgias. PSYCHIATRIC: The patient denies depression. NEUROLOGIC: No weakness Constitutional: alert Psych: no complaints Head: normocephalic ENMT: mucosa pink and moist Neck: supple, jvd (9 cm water) Respiratory: clear to auscultation Cardiovascular: regular rate and rhythm Gastrointestinal: soft, non-tender Musculoskeletal: muscle tone (normal) Extremities: edema (none) Neurological: other (No focal defiicts) Labs Result Diagram: 02/28/19 0500 02/28/19 0501 Results 24hrs Laboratory Tests Test 02/27/19 12:12 02/27/19 17:36 02/27/19 21:03 02/28/19 01:12 Bedside Glucose 121 128 127 131 Test 02/28/19 05:00 02/28/19 05:01 02/28/19 05:02 02/28/19 09:07 White Blood Count 9.8 Red Blood Count 4.96 Hemoglobin 13.7 Hematocrit 43.8 Mean Corpuscular 88.3 Volume Mean Corpuscular 27.6 L Hemoglobin Mean Corpuscular 31.3 L Hemoglobin Concent Red Cell 19.9 H Distribution Width Platelet Count 196 # Mean Platelet Volume 10.2 Immature 2.100 H Granulocytes % Neutrophils % 77.4 H Lymphocytes % 10.5 L Monocytes % 6.4 Eosinophils % 2.7 Basophils % 0.9 Nucleated Red Blood 0.0 Cells % Immature 0.210 H Granulocytes # Neutrophils # 7.6 H Lymphocytes # 1.0 Monocytes # 0.6 Eosinophils # 0.3 Basophils # 0.1 Nucleated Red Blood 0.0 Cells # Sodium Level 139 Potassium Level 3.1 L Chloride Level 100 Carbon Dioxide Level 33 H Anion Gap 6 Blood Urea Nitrogen 25 H Creatinine 0.72 Est Glomerular > 60 Filtrat Rate mL/min Glucose Level 125 Calcium Level 8.7 Bedside Glucose 120 133 Medications Medications Current Medications IV Flush (NS 3 ml) 3 ml PER PROTOCOL IV ; Start 02/12/19 at 15:30 Ondansetron HCl (Zofran Inj) 4 mg Q6H PRN IV NAUSEA/VOMITING; Start 02/12/19 at 15:30 Acetaminophen (Tylenol Tab) 650 mg Q6H PRN PO .PAIN 1-3 OR TEMP Last administered on 02/27/19at 14:40; Admin Dose 650 MG; Start 02/12/19 at 15:30 Docusate Sodium (Colace) 100 mg Q12H PRN PO .CONSTIPATION Last administered on 02/21/19at 14:05; Admin Dose 100 MG; Start 02/12/19 at 15:30; Status Hold Enoxaparin Sodium (Lovenox) 40 mg DAILY SC Last administered on 02/28/19at 09:12; Admin Dose 40 MG; Start 02/13/19 at 09:00 Propofol 100 ml @ 3.027 mls/ hr Q12H IV Last administered on 02/25/19at 01:55; Admin Dose 6.054 MLS/HR; Start 02/13/19 at 00:30 Fentanyl 100 ml @ 2.5 mls/hr TITRATE IV Last administered on 02/24/19at 19:21; Admin Dose 3 MLS/HR; Start 02/13/19 at 12:00 Levothyroxine Sodium (Synthroid) 88 mcg BEFORE BREAKFAST PO Last administered on 02/28/19 06:05; Admin Dose 88 MCG; Start 02/15/19 at 07:00 Miscellaneous Information 1 ea NOTE XX ; Start 02/14/19 at 10:30 Glucose (Glutose) 15 gm Q15M PRN PO DECREASED GLUCOSE; Start 02/14/19 at 10:30 Glucose (Glutose) 22.5 gm Q15M PRN PO DECREASED GLUCOSE; Start 02/14/19 at 10:30 Dextrose (D50w Syringe) 25 ml Q15M PRN IV DECREASED GLUCOSE; Start 02/14/19 at 10:30 Dextrose (D50w Syringe) 50 ml Q15M PRN IV DECREASED GLUCOSE; Start 02/14/19 at 10:30 Glucagon (Glucagen) 1 mg Q15M PRN IM DECREASED GLUCOSE; Start 02/14/19 at 10:30 Glucose (Glutose) 15 gm Q15M PRN BUCCAL DECREASED GLUCOSE; Start 02/14/19 at 10:30 Insulin Aspart (Novolog Insulin Pen) NOVOLOG *MILD* ALGORI... Q4 SC Last administered on 02/26/19at 05:15; Admin Dose 1 UNIT; Start 02/15/19 at 05:00 Docusate Sodium (Colace Liquid Cup) 100 mg BID NGT Last administered on 02/24/19at 21:15; Admin Dose 100 MG; Start 02/15/19 at 11:00; Status Hold Bisacodyl (Dulcolax Supp) 10 mg DAILY PRN [place] CONSTIPATION Last administered on 02/21/19at 14:06; Admin Dose 10 MG; Start 02/15/19 at 11:00 Famotidine (Pepcid) 20 mg Q12 NGT Last administered on 02/28/19 09:09; Admin Dose 20 MG; Start 02/18/19 at 21:00 IV Flush (NS 10 ml) 10 ml PRN PRN IV IV PROTOCOL; Start 02/18/19 at 15:30 Fluconazole (Diflucan) 100 mg DAILY PO Last administered on 02/28/19 09:09; Admin Dose 100 MG; Start 02/19/19 at 12:30 Albuterol (Ventolin Hfa) 4 puff Q6H RESP THERAPY INH Last administered on 02/28/19 07:58; Admin Dose 4 PUFF; Start 02/20/19 at 20:03 Ipratropium [place] (Atrovent Hfa) 4 puff Q6H RESP THERAPY INH Last administered on 02/28/19 07:58; Admin Dose 4 PUFF; Start 02/20/19 at 20:04 Metronidazole 100 ml @ 100 mls/hr Q8 IVPB Last administered on 02/28/19 06:04; Admin Dose 100 MLS/HR; Start 02/23/19 at 15:30 Furosemide (Lasix) 20 mg DAILY IV Last administered on 02/28/19 09:09; Admin Dose 20 MG; Start 02/26/19 at 09:00 Scopolamine (Transderm-Scop) 1 patch Q72H PRN TRANSDERM PRN SECRETIONS Last administered on 02/25/19at 22:40; Admin Dose 1 PATCH; Start 02/25/19 at 22:30 Potassium Chloride 100 ml @ 50 mls/hr Q2H IVPB ; Start 02/28/19 at 10:00; Stop 02/28/19 at 13:59 SHARIF TORRES Feb 28, 2019 10:23
[2019-02-28] MEDS: POTASSIUM CHLORIDE 100 ML IVPB SCH ×2 (11:33→13:12)
[2019-02-28] MEDS: PROPOFOL 100 ML IV SCH (11:35)
--- NOTE | 2019-02-28 11:44 | CONS ---
Consult Date/Type/Reason Admit Date/Time Feb 12, 2019 at 12:24 Initial Consult Date Type of Consult Pulmonary Requesting Provider: LORNA LYONS MD Date/Time of Note DATE: 02/28/19 TIME: 11:43 Subjective Patient more alert this morning. Tolerating SIMV trial. No agitation on Precedex. Objective Vital Signs Date Temp Pulse Resp B/P (MAP) Pulse Ox O2 O2 Flow FiO2 Time Delivery Rate 02/28/19 87 13 85/50 (62) Mechanical 08:00 Ventilator 02/28/19 98.3 07:30 02/28/19 92 07:00 02/28/19 30 05:00 Intake and Output 02/27/19 02/27/19 02/28/19 1515:00 23:00 07:00 IntakeIntake Total 590.270 ml 590.360 ml 590.270 ml OutputOutput Total 725 ml 495 ml 595 ml BalanceBalance -134.730 ml 95.360 ml -4.730 ml Exam GENERAL: Well-nourished well-developed lady VITAL SIGNS: per chart NECK: Supple. No JVD or lymphadenopathy. CARDIAC EXAM: S1, S2. No added sounds or murmurs. CHEST: clear bilaterally, No added sounds, rales or wheezes ABDOMEN: Soft, nontender. No guarding or rebound. EXTREMITIES: No cyanosis, clubbing or edema. NEUROLOGIC: Generalized weakness. Vent Setting Ventilator Support Mode: PS, SIMV Fraction of Inspired Oxygen pe: 30 Positive End Expiratory Pressu: 5.0 Results/Medications Result Diagram: 02/28/19 0500 02/28/19 0501 Results 24 hrs Laboratory Tests Test 02/27/19 12:12 02/27/19 17:36 02/27/19 21:03 02/28/19 01:12 Bedside Glucose 121 128 127 131 Test 02/28/19 05:00 02/28/19 05:01 02/28/19 05:02 02/28/19 09:07 White Blood Count 9.8 Red Blood Count 4.96 Hemoglobin 13.7 Hematocrit 43.8 Mean Corpuscular 88.3 Volume Mean Corpuscular 27.6 L Hemoglobin Mean Corpuscular 31.3 L Hemoglobin Concent Red Cell 19.9 H Distribution Width Platelet Count 196 # Mean Platelet Volume 10.2 Immature 2.100 H Granulocytes % Neutrophils % 77.4 H Lymphocytes % 10.5 L Monocytes % 6.4 Eosinophils % 2.7 Basophils % 0.9 Nucleated Red Blood 0.0 Cells % Immature 0.210 H Granulocytes # Neutrophils # 7.6 H Lymphocytes # 1.0 Monocytes # 0.6 Eosinophils # 0.3 Basophils # 0.1 Nucleated Red Blood 0.0 Cells # Sodium Level 139 Potassium Level 3.1 L Chloride Level 100 Carbon Dioxide Level 33 H Anion Gap 6 Blood Urea Nitrogen 25 H Creatinine 0.72 Est Glomerular > 60 Filtrat Rate mL/min Glucose Level 125 Calcium Level 8.7 Bedside Glucose 120 133 Medications Current Medications IV Flush (NS 3 ml) 3 ml PER PROTOCOL IV ; Start 02/12/19 at 15:30 Ondansetron HCl (Zofran Inj) 4 mg Q6H PRN IV NAUSEA/VOMITING; Start 02/12/19 at 15:30 Acetaminophen (Tylenol Tab) 650 mg Q6H PRN PO .PAIN 1-3 OR TEMP Last adminis tered on 02/27/19at 14:40; Admin Dose 650 MG; Start 02/12/19 at 15:30 Docusate Sodium (Colace) 100 mg Q12H PRN PO .CONSTIPATION Last administered on 02/21/19 14:05; Admin Dose 100 MG; Start 02/12/19 at 15:30; Status Hold Enoxaparin Sodium (Lovenox) 40 mg DAILY SC Last administered on 02/28/19 09:1 2; Admin Dose 40 MG; Start 02/13/19 at 09:00 Propofol 100 ml @ 3.027 mls/ hr Q12H IV Last administered on 02/25/19 01:55; Admin Dose 6.054 MLS/HR; Start 02/13/19 at 00:30 Fentanyl 100 ml @ 2.5 mls/hr TITRATE IV Last administered on 02/24/19 19:21; Admin Dose 3 MLS/HR; Start 02/13/19 at 12:00 Levothyroxine Sodium (Synthroid) 88 mcg BEFORE BREAKFAST PO Last administered on 02/28/19 06:05; Admin Dose 88 MCG; Start 02/15/19 at 07:00 Miscellaneous Information 1 ea NOTE XX ; Start 02/14/19 at 10:30 Glucose (Glutose) 15 gm Q15M PRN PO DECREASED GLUCOSE; Start 02/14/19 at 10:30 Glucose (Glutose) 22.5 gm Q15M PRN PO DECREASED GLUCOSE; Start 02/14/19 at 10:30 Dextrose (D50w Syringe) 25 ml Q15M PRN IV DECREASED GLUCOSE; Start 02/14/19 at 10:30 Dextrose (D50w Syringe) 50 ml Q15M PRN IV DECREASED GLUCOSE; Start 02/14/19 at 10:30 Glucagon (Glucagen) 1 mg Q15M PRN IM DECREASED GLUCOSE; Start 02/14/19 at 10:30 Glucose (Glutose) 15 gm Q15M PRN BUCCAL DECREASED GLUCOSE; Start 02/14/19 at 10:30 Insulin Aspart (Novolog Insulin Pen) NOVOLOG *MILD* ALGORI... Q4 SC Last administered on 02/26/19at 05:15; Admin Dose 1 UNIT; Start 02/15/19 at 05:00 Docusate Sodium (Colace Liquid Cup) 100 mg BID NGT Last administered on 02/24/19at 21:15; Admin Dose 100 MG; Start 02/15/19 at 11:00; Status Hold Bisacodyl (Dulcolax Supp) 10 mg DAILY PRN [place] CONSTIPATION Last administered on 02/21/19at 14:06; Admin Dose 10 MG; Start 02/15/19 at 11:00 Famotidine (Pepcid) 20 mg Q12 NGT Last administered on 02/28/19at 09:09; Admin Dose 20 MG; Start 02/18/19 at 21:00 IV Flush (NS 10 ml) 10 ml PRN PRN IV IV PROTOCOL; Start 02/18/19 at 15:30 Fluconazole (Diflucan) 100 mg DAILY PO Last administered on 02/28/19at 09:09; Admin Dose 100 MG; Start 02/19/19 at 12:30 Albuterol (Ventolin Hfa) 4 puff Q6H RESP THERAPY INH Last administered on 02/28/19at 07:58; Admin Dose 4 PUFF; Start 02/20/19 at 20:03 Ipratropium [place] (Atrovent Hfa) 4 puff Q6H RESP THERAPY INH Last administered on 02/28/19at 07:58; Admin Dose 4 PUFF; Start 02/20/19 at 20:04 Metronidazole 100 ml @ 100 mls/hr Q8 IVPB Last administered on 02/28/19at 06:04; Admin Dose 100 MLS/HR; Start 02/23/19 at 15:30 Furosemide (Lasix) 20 mg DAILY IV Last administered on 02/28/19at 09:09; Admin Dose 20 MG; Start 02/26/19 at 09:00 Scopolamine (Transderm-Scop) 1 patch Q72H PRN TRANSDERM PRN SECRETIONS Last administered on 02/25/19at 22:40; Admin Dose 1 PATCH; Start 02/25/19 at 22:30 Potassium Chloride 100 ml @ 50 mls/hr Q2H IVPB Last administered on 02/28/19at 11:33; Admin Dose 50 MLS/HR; Start 02/28/19 at 10:00; Stop 02/28/19 at 13:59 Assessment/Plan Hospital Course (Demo Recall) IMP: 1. Hypoxemic Respiratory Failure: imaging findings consistent with a multifocal pneumonia. Mild CHF currently tolerating CPAP weaning trial. 2. Down's Syndrome 3. EILEEN 4. HTN 5. DM RECS: 1. Continue broad-spectrum abx 2. Follow-up cultures 3. CPAP trial this morning hopefully safely extubate may require nocturnal BiPAP. 4. Post extubation speech therapy evaluation strict aspiration precautions 5. DVT GI prophylaxis 40 min cc time discussed with mother at bedside. MARY ANN MCKEON MD, [facility] Feb 28, 2019 11:44
--- NOTE | 2019-02-28 14:07 | PN ---
DATE: 02/28/2019 SUBJECTIVE: The patient is awake, comfortable on SIMV mode, follows commands. No fevers overnight. WBC today 9.8, platelets 196, neutrophils 77.4, BUN 25, creatinine 0.72. ANTIMICROBIALS: She is on: 1. Fluconazole. 2. Flagyl. INDWELLINGS: Endotracheal tube, NG tube, Nelson and PICC line. PHYSICAL EXAMINATION: GENERAL: This is an obese, chronically ill-appearing, middle-aged woman who is awake, in no distress. HEENT: Head atraumatic, normocephalic. NECK: Obese. CHEST: Rise symmetrical. Breath sounds diminished to bases. HEART: S1, S2. ABDOMEN: Obese, soft, bowel sounds present. EXTREMITIES: With trace edema. ASSESSMENT: 1. Status post severe sepsis with shock. 2. Status post pneumonia. 3. Colitis per CT of the abdomen. 4. Acute hypoxemic respiratory failure. 5. Morbid obesity. 6. Diabetes. 7. Down syndrome. PLAN: Patient is overall improving and doing well. She failed multiple weaning trials now on SIMV m ode, continue for a sputum culture persistently growing yeast, patient is on fluconazole. Continue m anagement as per pulmonary and primary team. Dictated By: RUDOLPH YOON [employer]ILDING for ЕКАТЕРИНА JIMENEZ MD NI/NTS Conf#: [id number] DID#: [id number] CC: LORNA LYONS;*EndCC*
--- NOTE | 2019-02-28 16:06 | PN ---
Date/Time of Note Date/Time of Note DATE: 02/28/19 TIME: 16:03 Assessment/Plan VTE Prophylaxis Risk score (from Ns)>0 risk: 11 SCD applied (from [facility]): Yes Pharmacological prophylaxis: NA/contraindicated Pharm contraindication: low risk/ambulating Lines/Catheters IV Catheter Type (from [facility]): PICC Line Central line still needed: Yes Urinary Cath still in place: Yes Reason Cath still needed: urinary retention Assessment/Plan Assessment/Plan ssessment/Plan 1 Severe altered mental status likely secondary to metabolic encephalopathy, likely secondary to CO2 narcosis. The patient is also on antidepressants and loxapine at home. Surprisingly on ABG CO2 levels were not high, CT of the head is negative, now awake,alert and follows commands 2. Hypoxic respiratory failure s/p intubation secondary to pneumonia/CHF 3. Lactic acidosis. Respiratory acidosis. 4. Morbid obesity. 5. Down syndrome. 6. Hypertension. 7. Diabetes. 8. History of ventral hernia repair. 9. Leukocytosis secondary to pneumonia 10. Hypothyroidism 11. KIRIT, more likely due to sepsis 12 low-grade fevers CT of the abdomen and pelvis some mild colitis 13 diarrhoea? C diff neg Assessment/Plan -CPAP trial again today per pulmonary difficult weaning as get tachpnic and low volumes -- low dose lasix - c diff neg - Chest Xray improved -Continue with Flagyl/Diflucan per ID -c/w tube feed -Vent management per pulmonary. - cw levothyroxine -cardiology input is appreciated - GI Famotidine BID - dvt Prophylaxsis - Replete K Result Diagram: 02/28/19 0500 02/28/19 0501 Results 24hrs Laboratory Tests Test 02/27/19 17:36 02/27/19 21:03 02/28/19 01:12 02/28/19 05:00 Bedside Glucose 128 127 131 White Blood Count 9.8 Red Blood Count 4.96 Hemoglobin 13.7 Hematocrit 43.8 Mean Corpuscular 88.3 Volume Mean Corpuscular 27.6 L Hemoglobin Mean Corpuscular 31.3 L Hemoglobin Concen t Red Cell 19.9 H Distribution Width Platelet Count 196 # Mean Platelet 10.2 Volume Immature 2.100 H Granulocytes % Neutrophils % 77.4 H Lymphocytes % 10.5 L Monocytes % 6.4 Eosinophils % 2.7 Basophils % 0.9 Nucleated Red 0.0 Blood Cells % Immature 0.210 H Granulocytes # Neutrophils # 7.6 H Lymphocytes # 1.0 Monocytes # 0.6 Eosinophils # 0.3 Basophils # 0.1 Nucleated Red 0.0 Blood Cells # Test 02/28/19 05:01 02/28/19 05:02 02/28/19 09:07 02/28/19 12:00 Sodium Level 139 Potassium Level 3.1 L Chloride Level 100 Carbon Dioxide 33 H Level Anion Gap 6 Blood Urea 25 H Nitrogen Creatinine 0.72 Est Glomerular > 60 Filtrat Rate mL/min Glucose Level 125 Calcium Level 8.7 Bedside Glucose 120 133 Blood Gas Blood arterial Specimen Source Arterial Blood 02/28/2019 12:15: Date Drawn 09 PM Arterial Blood pH 7.511 H (Temp corrected) Arterial Blood 38.3 pCO2 (Temp correct) Arterial Blood 85.6 pO2 (Temp corrected) Arterial Blood 29.9 H HCO3 Arterial Blood 6.6 H Base Excess Arterial Blood 96.8 Oxygen Saturation [place]win Test ACCEPTAB Arterial Blood Right Radial Gas Puncture Site Arterial 0.6 Blood Carboxyhemo globin Arterial Blood 0.3 Methemoglobin Blood Gas A-a O2 83.3 H Differential Oxyhemoglobin 95.9 Percent Blood Gas 37.0 Temperature Blood Gas Actual 35 Respiration Rate Blood Gas VENT - CPAP Modality FiO2 30.0 Blood Gas Low 5.0 PEEP Setting Blood Gas 10 Pressure Support Blood Gas TM Notified Whom Blood Gas 02/28/2019 12:37: Notified Time 17 PM Test 02/28/19 13:12 Bedside Glucose 115 Subjective 24 Hr Interval Summary Free Text/Dictation Pt was on simv and CPAP this morning Exam/Review of Systems Exam Vitals Vital Signs Date Temp Pulse Resp B/P (MAP) Pulse Ox O2 O2 Flow FiO2 Time Delivery Rate 02/28/19 76 12 103/69 99 Mechanical 14:30 (80) Ventilator 02/28/19 30 13:05 02/28/19 98.4 12:00 Intake and Output 02/27/19 02/27/19 02/28/19 1515:00 23:00 07:00 IntakeIntake Total 590.270 ml 590.360 ml 590.270 ml OutputOutput Total 725 ml 495 ml 595 ml BalanceBalance -134.730 ml 95.360 ml -4.730 ml Exam Exam Constitutional: obese, follows commands off sedation Neck: supple Respiratory: diminished breath sounds Cardiovascular: regular rate and rhythm Gastrointestinal: soft Musculoskeletal: swelling; No nl extremities to inspection, No nl gait and stance, No joint tenderness, No muscle tone, No muscle weakness, No range of motion, No spine non-tender, No other Results Results 24hrs Laboratory Tests Test 02/27/19 17:36 02/27/19 21:03 02/28/19 01:12 02/28/19 05:00 Bedside Glucose 128 127 131 White Blood Count 9.8 Red Blood Count 4.96 Hemoglobin 13.7 Hematocrit 43.8 Mean Corpuscular 88.3 Volume Mean Corpuscular 27.6 L Hemoglobin Mean Corpuscular 31.3 L Hemoglobin Concen t Red Cell 19.9 H Distribution Width Platelet Count 196 # Mean Platelet 10.2 Volume Immature 2.100 H Granulocytes % Neutrophils % 77.4 H Lymphocytes % 10.5 L Monocytes % 6.4 Eosinophils % 2.7 Basophils % 0.9 Nucleated Red 0.0 Blood Cells % Immature 0.210 H Granulocytes # Neutrophils # 7.6 H Lymphocytes # 1.0 Monocytes # 0.6 Eosinophils # 0.3 Basophils # 0.1 Nucleated Red 0.0 Blood Cells # Test 02/28/19 05:01 02/28/19 05:02 02/28/19 09:07 02/28/19 12:00 Sodium Level 139 Potassium Level 3.1 L Chloride Level 100 Carbon Dioxide 33 H Level Anion Gap 6 Blood Urea 25 H Nitrogen Creatinine 0.72 Est Glomerular > 60 Filtrat Rate mL/min Glucose Level 125 Calcium Level 8.7 Bedside Glucose 120 133 Blood Gas Blood arterial Specimen Source Arterial Blood 02/28/2019 12:15: Date Drawn 09 PM Arterial Blood pH 7.511 H (Temp corrected) Arterial Blood 38.3 pCO2 (Temp correct) Arterial Blood 85.6 pO2 (Temp corrected) Arterial Blood 29.9 H HCO3 Arterial Blood 6.6 H Base Excess Arterial Blood 96.8 Oxygen Saturation [place]win Test ACCEPTAB Arterial Blood Right Radial Gas Puncture Site Arterial 0.6 Blood Carboxyhemo globin Arterial Blood 0.3 Methemoglobin Blood Gas A-a O2 83.3 H Differential Oxyhemoglobin 95.9 Percent Blood Gas 37.0 Temperature Blood Gas Actual 35 Respiration Rate Blood Gas VENT - CPAP Modality FiO2 30.0 Blood Gas Low 5.0 PEEP Setting Blood Gas 10 Pressure Support Blood Gas TM Notified Whom Blood Gas 02/28/2019 12:37: Notified Time 17 PM Test 02/28/19 13:12 Bedside Glucose 115 Medications Medication Current Medications IV Flush (NS 3 ml) 3 ml PER PROTOCOL IV ; Start 02/12/19 at 15:30 Ondansetron HCl (Zofran Inj) 4 mg Q6H PRN IV NAUSEA/VOMITING; Start 02/12/19 at 15:30 Acetaminophen (Tylenol Tab) 650 mg Q6H PRN PO .PAIN 1-3 OR TEMP Last administered on 02/27/19at 14:40; Admin Dose 650 MG; Start 02/12/19 at 15:30 Docusate Sodium (Colace) 100 mg Q12H PRN PO .CONSTIPATION Last administered on 02/21/19 14:05; Admin Dose 100 MG; Start 02/12/19 at 15:30; Status Hold Enoxaparin Sodium (Lovenox) 40 mg DAILY SC Last administered on 02/28/19at 09:12; Admin Dose 40 MG; Start 02/13/19 at 09:00 Propofol 100 ml @ 3.027 mls/ hr Q12H IV Last administered on 02/25/19at 01:55; Admin Dose 6.054 MLS/HR; Start 02/13/19 at 00:30 Fentanyl 100 ml @ 2.5 mls/hr TITRATE IV Last administered on 02/24/19at 19:21; Admin Dose 3 MLS/HR; Start 02/13/19 at 12:00 Levothyroxine Sodium (Synthroid) 88 mcg BEFORE BREAKFAST PO Last administered on 02/28/19at 06:05; Admin Dose 88 MCG; Start 02/15/19 at 07:00 Miscellaneous Information 1 ea NOTE XX ; Start 02/14/19 at 10:30 Glucose (Glutose) 15 gm Q15M PRN PO DECREASED GLUCOSE; Start 02/14/19 at 10:30 Glucose (Glutose) 22.5 gm Q15M PRN PO DECREASED GLUCOSE; Start 02/14/19 at 10:30 Dextrose (D50w Syringe) 25 ml Q15M PRN IV DECREASED GLUCOSE; Start 02/14/19 at 10:30 Dextrose (D50w Syringe) 50 ml Q15M PRN IV DECREASED GLUCOSE; Start 02/14/19 at 10:30 Glucagon (Glucagen) 1 mg Q15M PRN IM DECREASED GLUCOSE; Start 02/14/19 at 10:30 Glucose (Glutose) 15 gm Q15M PRN BUCCAL DECREASED GLUCOSE; Start 02/14/19 at 10:30 Insulin Aspart (Novolog Insulin Pen) NOVOLOG *MILD* ALGORI... Q4 SC Last administered on 02/26/19 05:15; Admin Dose 1 UNIT; Start 02/15/19 at 05:00 Docusate Sodium (Colace Liquid Cup) 100 mg BID NGT Last administered on 02/24/19 21:15; Admin Dose 100 MG; Start 02/15/19 at 11:00; Status Hold Bisacodyl (Dulcolax Supp) [address] CONSTIPATION Last administered on 02/21/19 14:06; Admin Dose 10 MG; Start 02/15/19 at 11:00 Famotidine (Pepcid) 20 mg Q12 NGT Last administered on 02/28/19 09:09; Admin Dose 20 MG; Start 02/18/19 at 21:00 IV Flush (NS 10 ml) 10 ml PRN PRN IV IV PROTOCOL; Start 02/18/19 at 15:30 Fluconazole (Diflucan) 100 mg DAILY PO Last administered on 02/28/19 09:09; Admin Dose 100 MG; Start 02/19/19 at 12:30 Albuterol (Ventolin Hfa) 4 puff Q6H RESP THERAPY INH Last administered on 02/28/19 13:24; Admin Dose 4 PUFF; Start 02/20/19 at 20:03 Ipratropium [place] (Atrovent Hfa) 4 puff Q6H RESP THERAPY INH Last administered on 02/28/19 13:24; Admin Dose 4 PUFF; Start 02/20/19 at 20:04 Metronidazole 100 ml @ 100 mls/hr Q8 IVPB Last administered on 02/28/19 14:54; Admin Dose 100 MLS/HR; Start 02/23/19 at 15:30 Furosemide (Lasix) 20 mg DAILY IV Last administered on 02/28/19 09:09; Admin Dose 20 MG; Start 02/26/19 at 09:00 Scopolamine (Transderm-Scop) 1 patch Q72H PRN TRANSDERM PRN SECRETIONS Last administered on 7/16/19at 22:40; Admin Dose 1 PATCH; Start 02/25/19 at 22:30 LORNA LYONS MD Feb 28, 2019 16:06
[2019-03-01] VITALS (27 sets, daily range): BP systolic 85–119; BP diastolic 53–80; PULSE 59–90; RESP 11–36
[2019-03-01] MEDS: PROPOFOL 100 ML IV SCH ×3 (00:30→20:52)
[2019-03-01] MEDS: INSULIN ASPART [NOVOLOG] 3 ML PEN SC SCH ×6 (00:58→20:51)
[2019-03-01] MEDS: DEXMEDETOMIDINE IN DEXTROSE 5% 50 ML IV SCH ×3 (00:59→05:06)
[2019-03-01] MEDS: ALBUTEROL HFA 8 GM INHALER INH SCH ×2 (01:50→08:21)
[2019-03-01] MEDS: IPRATROPIUM (HFA) 12.9 GM INHALER INH SCH ×2 (01:50→08:21)
[2019-03-01] MEDS: metroNIDAZOLE 500 MG/NS (PMX) 100 ML IVPB SCH ×3 (05:07→20:52)
[2019-03-01] MEDS: LEVOTHYROXINE 88 MCG TAB PO SCH (05:10)
--- NOTE | 2019-03-01 09:26 | CONS ---
Consult Date/Type/Reason Admit Date/Time Feb 12, 2019 at 12:24 Initial Consult Date Type of Consult Pulmonary Requesting Provider: LORNA LYONS MD Date/Time of Note DATE: 03/01/19 TIME: 09:25 Subjective Patient comfortable on CPAP trial this morning. Adequate tidal volumes. Chest x-ray does demonstrate pulmonary edema however. Family at bedside. Objective Vital Signs Date Temp Pulse Resp B/P (MAP) Pulse Ox O2 O2 Flow FiO2 Time Delivery Rate 03/01/19 64 15 90/55 (67) 97 Mechanical 06:00 Ventilator 03/01/19 30 05:51 03/01/19 99.5 04:00 Intake and Output 02/28/19 02/28/19 03/01/19 1515:00 23:00 07:00 IntakeIntake Total 455.225 ml 565.135 ml 366.1 ml OutputOutput Total 1090 ml 340 ml 180 ml BalanceBalance -634.775 ml 225.135 ml 186.1 ml Exam GENERAL: Well-nourished well-developed lady VITAL SIGNS: per chart NECK: Supple. No JVD or lymphadenopathy. CARDIAC EXAM: S1, S2. No added sounds or murmurs. CHEST: clear bilaterally, No added sounds, rales or wheezes ABDOMEN: Soft, nontender. No guarding or rebound. EXTREMITIES: No cyanosis, clubbing or edema. NEUROLOGIC: Generalized weakness. Vent Setting Ventilator Support Mode: PS, SIMV Fraction of Inspired Oxygen pe: 30 Positive End Expiratory Pressu: 5.0 Results/Medications Result Diagram: 03/01/19 0502 03/01/19 0502 Results 24 hrs Laboratory Tests Test 02/28/19 12:00 02/28/19 13:12 02/28/19 17:22 02/28/19 20:00 Blood Gas Blood arterial Specimen Source Arterial Blood 02/28/2019 12:15: Date Drawn 09 PM Arterial Blood pH 7.511 H (Temp corrected) Arterial Blood 38.3 pCO2 (Temp correct) Arterial Blood 85.6 pO2 (Temp corrected) Arterial Blood 29.9 H HCO3 Arterial Blood 6.6 H Base Excess Arterial Blood 96.8 Oxygen Saturation [place] Test ACCEPTAB Arterial Blood Right Radial Gas Puncture Site Arterial 0.6 Blood Carboxyhemo globin Arterial Blood 0.3 Methemoglobin Blood Gas A-a O2 83.3 H Differential Oxyhemoglobin 95.9 Percent Blood Gas 37.0 Temperature Blood Gas Actual 35 Respiration Rate Blood Gas VENT - CPAP Modality FiO2 30.0 Blood Gas Low 5.0 PEEP Setting Blood Gas 10 Pressure Support Blood Gas TM Notified Whom Blood Gas 02/28/2019 12:37: Notified Time 17 PM Bedside Glucose 115 151 103 Test 03/01/19 00:58 03/01/19 05:02 03/01/19 05:17 Bedside Glucose 120 136 White Blood Count 7.5 # Red Blood Count 5.08 Hemoglobin 13.8 Hematocrit 45.0 Mean Corpuscular 88.6 Volume Mean Corpuscular 27.2 L Hemoglobin Mean Corpuscular 30.7 L Hemoglobin Concen t Red Cell 20.0 H Distribution Width Platelet Count 238 # Mean Platelet 9.7 Volume Immature 2.100 H Granulocytes % Neutrophils % 72.9 Lymphocytes % 11.9 L Monocytes % 9.0 Eosinophils % 2.8 Basophils % 1.3 Nucleated Red 0.0 Blood Cells % Immature 0.160 H Granulocytes # Neutrophils # 5.5 Lymphocytes # 0.9 Monocytes # 0.7 Eosinophils # 0.2 Basophils # 0.1 Nucleated Red 0.0 Blood Cells # Sodium Level 141 Potassium Level 3.8 Chloride Level 102 Carbon Dioxide 32 H Level Anion Gap 7 Blood Urea 21 H Nitrogen Creatinine 0.60 Est Glomerular > 60 Filtrat Rate mL/min Glucose Level 141 Calcium Level 8.9 Phosphorus Level 3.7 Magnesium Level 2.4 Medications Current Medications IV Flush (NS 3 ml) 3 ml PER PROTOCOL IV ; Start 02/12/19 at 15:30 Ondansetron HCl (Zofran Inj) 4 mg Q6H PRN IV NAUSEA/VOMITING; Start 02/12/19 at 15:30 Acetaminophen (Tylenol Tab) 650 mg Q6H PRN PO .PAIN 1-3 OR TEMP Last administered on 02/27/19at 14:40; Admin Dose 650 MG; Start 02/12/19 at 15:30 Docusate Sodium (Colace) 100 mg Q12H PRN PO .CONSTIPATION Last administered on 02/21/19at 14:05; Admin Dose 100 MG; Start 02/12/19 at 15:30; Status Hold Enoxaparin Sodium (Lovenox) 40 mg DAILY SC Last administered on 02/28/19at 09:12; Admin Dose 40 MG; Start 02/13/19 at 09:00 Propofol 100 ml @ 3.027 mls/ hr Q12H IV Last administered on 02/25/19at 01:55; Admin Dose 6.054 MLS/HR; Start 02/13/19 at 00:30 Fentanyl 100 ml @ 2.5 mls/hr TITRATE IV Last administered on 02/24/19at 19:21; Admin Dose 3 MLS/HR; Start 02/13/19 at 12:00 Levothyroxine Sodium (Synthroid) 88 mcg BEFORE BREAKFAST PO Last administered on 03/01/19at 05:10; Admin Dose 88 MCG; Start 02/15/19 at 07:00 Miscellaneous Information 1 ea NOTE XX ; Start 02/14/19 at 10:30 Glucose (Glutose) 15 gm Q15M PRN PO DECREASED GLUCOSE; Start 02/14/19 at 10:30 Glucose (Glutose) 22.5 gm Q15M PRN PO DECREASED GLUCOSE; Start 02/14/19 at 10:30 Dextrose (D50w Syringe) 25 ml Q15M PRN IV DECREASED GLUCOSE; Start 02/14/19 at 10:30 Dextrose (D50w Syringe) 50 ml Q15M PRN IV DECREASED GLUCOSE; Start 02/14/19 at 10:30 Glucagon (Glucagen) 1 mg Q15M PRN IM DECREASED GLUCOSE; Start 02/14/19 at 10:30 Glucose (Glutose) 15 gm Q15M PRN BUCCAL DECREASED GLUCOSE; Start 02/14/19 at 10 :30 Insulin Aspart (Novolog Insulin Pen) NOVOLOG *MILD* ALGORI... Q4 SC Last administered on 02/28/19at 17:34; Admin Dose 1 UNIT; Start 02/15/19 at 05:00 Docusate Sodium (Colace Liquid Cup) 100 mg BID NGT Last administered on 02/24/19at 21:15; Admin Dose 100 MG; Start 02/15/19 at 11:00; Status Hold Bisacodyl (Dulcolax Supp) 10 mg DAILY PRN [place] CONSTIPATION Last administered on 02/21/19at 14:06; Admin Dose 10 MG; Start 02/15/19 at 11:00 Famotidine (Pepcid) 20 mg Q12 NGT Last administered on 02/28/19at 20:04; Admin Dose 20 MG; Start 02/18/19 at 21:00 IV Flush (NS 10 ml) 10 ml PRN PRN IV IV PROTOCOL; Start 02/18/19 at 15:30 Fluconazole (Diflucan) 100 mg DAILY PO Last administered on 02/28/19 09:09; Admin Dose 100 MG; Start 02/19/19 at 12:30 Albuterol (Ventolin Hfa) 4 puff Q6H RESP THERAPY INH Last administered on 03/01/19 08:21; Admin Dose 4 PUFF; Start 02/20/19 at 20:03 Ipratropium [place] (Atrovent Hfa) 4 puff Q6H RESP THERAPY INH Last administered on 03/01/19 08:21; Admin Dose 4 PUFF; Start 02/20/19 at 20:04 Metronidazole 100 ml @ 100 mls/hr Q8 IVPB Last administered on 03/01/19 05:07; Admin Dose 100 MLS/HR; Start 02/23/19 at 15:30 Furosemide (Lasix) 20 mg DAILY IV Last administered on 02/28/19 09:09; Admin Dose 20 MG; Start 02/26/19 at 09:00 Scopolamine (Transderm-Scop) 1 patch Q72H PRN TRANSDERM PRN SECRETIONS Last administered on 02/25/19 22:40; Admin Dose 1 PATCH; Start 02/25/19 at 22:30 Assessment/Plan Hospital Course (Demo Recall) IMP: 1. Hypoxemic Respiratory Failure: imaging findings consistent with a multifocal pneumonia. Mild CHF currently tolerating CPAP weaning trial. 2. Down's Syndrome 3. EILEEN 4. HTN 5. DM RECS: 1. Continue broad-spectrum abx 2. Follow-up cultures increase Lasix to 40 mg daily 3. CPAP trial this morning hopefully safely extubate may require nocturnal BiPAP. Cuff leak test prior to extubation 4. Post extubation speech therapy evaluation strict aspiration precautions 5. DVT GI prophylaxis 40 min cc time discussed with mother at bedside. MARY ANN MCKEON MD, [facility] Mar 01, 2019 09:26
[2019-03-01] MEDS: FLUCONAZOLE 100 MG TAB PO SCH (09:35)
[2019-03-01] MEDS: ENOXAPARIN 40 MG/0.4 ML SYG SC SCH (09:37)
[2019-03-01] MEDS: FUROSEMIDE 20 MG INJ IV SCH (09:38)
--- NOTE | 2019-03-01 10:04 | CONS ---
Assessment/Plan Assessment/Plan Hospital Course (Demo Recall) ID PROGRESS NOTE CURRENT ABX: DAY # 17=> Diflucan # 10 + Flagyl #5 s/p Vanco IV + Cefepime 2GM (increased dose 02/16 pm) + Levaquin s/p Ceftriaxone 02/1203/01/19 0502 03/01/19 0502 HPI/HOSPITAL COURSE * 28 yo F w/Down's Syndrome and super morbid obesity (BMI >46.5) -> Admit with sepsis, shock, multifocal PNA * Intubated/ mechanical Vent /PICC line placed - IV STEROIDS * 4H INTERVAL SUMMARY * Low grade temps, hypotension intermittent * CT (+)Colitis * WBC normalized * Completed course of ABX for Staph aureus multi-focal PNA MICRO * 02/26/19 (-)C.DIFF * 02/24/19 SPUTUM (+)YEAST * SPUTUM (-) * 02/15/19 RESPIRATORY CULTURE STAPH AUREUS * 02/15/19 BCx (-) * 02/15/19 UA/Cx (-) * UA (-) * 02/12/19 BCx (-) DIAGNOSTIC IMAGING * 02/17/19 CXR: 1. Right greater than left interstitial opacities may reflect interstitial edema or pneumonia. Findings are mildly increased when compared to the prior examination.2. Left basilar atelectasis versus pneumonia, also increased.3. Small bilateral pleural effusions.4. Tubes and lines, as described above. * 02/15/19 CXR:IMPRESSION: Placement of left arm PICC line with tip in the superior vena cava.Endotracheal tube and nasogastric tube in place unchanged. Low volumes with hilar vascular crowding and mild bibasilar atelectasis per. * 02/12/19 CXR: There is bilateral perihilar consolidation as well as left lung base consolidation. PHYSICAL EXAMINATION: GENERAL: VSS, NAD HEENT: AT, NC, NECK: Supple, CHEST: Rise symmetrical HEART: Pulse RRR ABDOMEN: Benign EXTREMITIES: Warm, dry - SKIN: No rash, no diaphoresis ID ASSESSMENT 28 yo DOWN' SYDNROME F admit with: 1. s/p Septic w/persistent fevers, WBC resolved initially w/ABX - Multifocal PNA * Leukocytosis - WBC rising => Suspect partial IV steroids demargination 2. Hypoxemic Respiratory Failure: imaging findings consistent with a multifocal pneumonia. 3. CHF 4. Obesity w/EILEEN/OHS 5. HTN 6. Diabetes 7. Colitis per CT of the abdomen. (-)MRSA Nares ABX ALLERGIES: KNDA INVASIVES: PIV CURRENT ABX: DAY # # 17=> Diflucan # 10 + Flagyl #5 s/p Vanco IV + Cefepime 2GM (increased dose 02/16 pm) + Levaquin s/p Ceftriaxone 02/12 ID RECOMMENDATIONS/PLAN: 1. Continue current ABX over the weekend 2. Weaning from Vent per pulmonary . Consultation Date/Type/Reason Admit Date/Time Feb 12, 2019 at 12:24 Initial Consult Date Requesting Provider: LORNA LYONS MD Date/Time of Note DATE: 03/01/19 TIME: 09:58 Exam/Review of Systems Exam Vitals Vital Signs Date Temp Pulse Resp B/P (MAP) Pulse Ox O2 O2 Flow FiO2 Time Delivery Rate 03/01/19 64 15 90/55 (67) 97 Mechanical 06:00 Ventilator 03/01/19 30 05:51 03/01/19 99.5 04:00 Intake and Output 02/28/19 02/28/19 03/01/19 1515:00 23:00 07:00 IntakeIntake Total 455.225 ml 565.135 ml 366.1 ml OutputOutput Total 1090 ml 340 ml 180 ml BalanceBalance -634.775 ml 225.135 ml 186.1 ml Results Result Diagram: 03/01/19 0502 03/01/19 0502 Results 24hrs Laboratory Tests Test 02/28/19 12:00 02/28/19 13:12 02/28/19 17:22 02/28/19 20:00 Blood Gas Blood arterial Specimen Source Arterial Blood 02/28/2019 12:15: Date Drawn 09 PM Arterial Blood pH 7.511 H (Temp corrected) Arterial Blood 38.3 pCO2 (Temp correct) Arterial Blood 85.6 pO2 (Temp corrected) Arterial Blood 29.9 H HCO3 Arterial Blood 6.6 H Base Excess Arterial Blood 96.8 Oxygen Saturation [place]win Test ACCEPTAB Arterial Blood Right Radial Gas Puncture Site Arterial 0.6 Blood Carboxyhemo globin Arterial Blood 0.3 Methemoglobin Blood Gas A-a O2 83.3 H Differential Oxyhemoglobin 95.9 Percent Blood Gas 37.0 Temperature Blood Gas Actual 35 Respiration Rate Blood Gas VENT - CPAP Modality FiO2 30.0 Blood Gas Low 5.0 PEEP Setting Blood Gas 10 Pressure Support Blood Gas TM Notified Whom Blood Gas 02/28/2019 12:37: Notified Time 17 PM Bedside Glucose 115 151 103 Test 03/01/19 00:58 03/01/19 05:02 03/01/19 05:17 03/01/19 09:35 Bedside Glucose 120 136 105 White Blood Count 7.5 # Red Blood Count 5.08 Hemoglobin 13.8 Hematocrit 45.0 Mean Corpuscular 88.6 Volume Mean Corpuscular 27.2 L Hemoglobin Mean Corpuscular 30.7 L Hemoglobin Concen t Red Cell 20.0 H Distribution Width Platelet Count 238 # Mean Platelet 9.7 Volume Immature 2.100 H Granulocytes % Neutrophils % 72.9 Lymphocytes % 11.9 L Monocytes % 9.0 Eosinophils % 2.8 Basophils % 1.3 Nucleated Red 0.0 Blood Cells % Immature 0.160 H Granulocytes # Neutrophils # 5.5 Lymphocytes # 0.9 Monocytes # 0.7 Eosinophils # 0.2 Basophils # 0.1 Nucleated Red 0.0 Blood Cells # Sodium Level 141 Potassium Level 3.8 Chloride Level 102 Carbon Dioxide 32 H Level Anion Gap 7 Blood Urea 21 H Nitrogen Creatinine 0.60 Est Glomerular > 60 Filtrat Rate mL/min Glucose Level 141 Calcium Level 8.9 Phosphorus Level 3.7 Magnesium Level 2.4 Medications Medication Current Medications IV Flush (NS 3 ml) 3 ml PER PROTOCOL IV ; Start 02/12/19 at 15:30 Ondansetron HCl (Zofran Inj) 4 mg Q6H PRN IV NAUSEA/VOMITING; Start 02/12/19 at 15:30 Acetaminophen (Tylenol Tab) 650 mg Q6H PRN PO .PAIN 1-3 OR TEMP Last administered on 02/27/19at 14:40; Admin Dose 650 MG; Start 02/12/19 at 15:30 Docusate Sodium (Colace) 100 mg Q12H PRN PO .CONSTIPATION Last administered on 02/21/19at 14:05; Admin Dose 100 MG; Start 02/12/19 at 15:30; Status Hold Enoxaparin Sodium (Lovenox) 40 mg DAILY SC Last administered on 03/01/19at 09:37; Admin Dose 40 MG; Start 02/13/19 at 09:00 Propofol 100 ml @ 3.027 mls/ hr Q12H IV Last administered on 02/25/19at 01:55; Admin Dose 6.054 MLS/HR; Start 02/13/19 at 00:30 Fentanyl 100 ml @ 2.5 mls/hr TITRATE IV Last administered on 02/24/19at 19:21; Admin Dose 3 MLS/HR; Start 02/13/19 at 12:00 Levothyroxine Sodium (Synthroid) 88 mcg BEFORE BREAKFAST PO Last administered on 03/01/19at 05:10; Admin Dose 88 MCG; Start 02/15/19 at 07:00 Miscellaneous Information 1 ea NOTE XX ; Start 02/14/19 at 10:30 Glucose (Glutose) 15 gm Q15M PRN PO DECREASED GLUCOSE; Start 02/14/19 at 10:30 Glucose (Glutose) 22.5 gm Q15M PRN PO DECREASED GLUCOSE; Start 02/14/19 at 10:30 Dextrose (D50w Syringe) 25 ml Q15M PRN IV DECREASED GLUCOSE; Start 02/14/19 at 10:30 Dextrose (D50w Syringe) 50 ml Q15M PRN IV DECREASED GLUCOSE; Start 02/14/19 at 10:30 Glucagon (Glucagen) 1 mg Q15M PRN IM DECREASED GLUCOSE; Start 02/14/19 at 10:30 Glucose (Glutose) 15 gm Q15M PRN BUCCAL DECREASED GLUCOSE; Start 02/14/19 at 10:30 Insulin Aspart (Novolog Insulin Pen) NOVOLOG *MILD* ALGORI... Q4 SC Last administered on 02/28/19at 17:34; Admin Dose 1 UNIT; Start 02/15/19 at 05:00 Docusate Sodium (Colace Liquid Cup) 100 mg BID NGT Last administered on 02/24/19at 21:15; Admin Dose 100 MG; Start 02/15/19 at 11:00; Status Hold Bisacodyl (Dulcolax Supp) 10 mg DAILY PRN [place] CONSTIPATION Last administered on 02/21/19 14:06; Admin Dose 10 MG; Start 02/15/19 at 11:00 Famotidine (Pepcid) 20 mg Q12 NGT Last administered on 02/28/19at 20:04; Admin Dose 20 MG; Start 02/18/19 at 21:00 IV Flush (NS 10 ml) 10 ml PRN PRN IV IV PROTOCOL; Start 02/18/19 at 15:30 Fluconazole (Diflucan) 100 mg DAILY PO Last administered on 03/01/19at 09:35; Admin Dose 100 MG; Start 02/19/19 at 12:30 Albuterol (Ventolin Hfa) 4 puff Q6H RESP THERAPY INH Last administered on 03/01/19 08:21; Admin Dose 4 PUFF; Start 02/20/19 at 20:03 Ipratropium [place] (Atrovent Hfa) 4 puff Q6H RESP THERAPY INH Last administered on 03/01/19 08:21; Admin Dose 4 PUFF; Start 02/20/19 at 20:04 Metronidazole 100 ml @ 100 mls/hr Q8 IVPB Last administered on 03/01/19at 05:07; Admin Dose 100 MLS/HR; Start 02/23/19 at 15:30 Furosemide (Lasix) 20 mg DAILY IV Last administered on 03/01/19at 09:38; Admin Dose 20 MG; Start 02/26/19 at 09:00 Scopolamine (Transderm-Scop) 1 patch Q72H PRN TRANSDERM PRN SECRETIONS Last administered on 02/25/19at 22:40; Admin Dose 1 PATCH; Start 02/25/19 at 22:30 DESHAWN CARSON NP Mar 01, 2019 10:04
[2019-03-01] MEDS: FAMOTIDINE 20 MG TAB NGT SCH ×3 (10:30→20:53)
--- NOTE | 2019-03-01 11:08 | CONS ---
Consult Date/Type/Reason Admit Date/Time Feb 12, 2019 at 12:24 Initial Consult Date Type of Consultation: Pulm/CCM Requesting Provider: LORNA LYONS MD Date/Time of Note DATE: 03/01/19 TIME: 11:06 Subjective Pt extubated - doing well- Rx with spot lasix - no CP - doing well - no CP now. ROS: No fever, no chills, no nausea, no vomiting, no diarrhea/constipation - per nurse No recent weight changes No chest pain, no PND, no orthopnea - no wheezing No dizziness, blurred vision No thirst, no heat or cold intolerance Objective Vitals Vital Signs Date Temp Pulse Resp B/P (MAP) Pulse Ox O2 O2 Flow FiO2 Time Delivery Rate 03/01/19 66 08:00 03/01/19 15 90/55 (67) 97 Mechanical 06:00 Ventilator 03/01/19 30 05:51 03/01/19 99.5 04:00 Intake and Output 02/28/19 02/28/19 03/01/19 1515:00 23:00 07:00 IntakeIntake Total 455.225 ml 565.135 ml 366.1 ml OutputOutput Total 1090 ml 340 ml 180 ml BalanceBalance -634.775 ml 225.135 ml 186.1 ml Exam General: WN/WD/NAD, AOx more alert HEENT: Unicetric/atraumatic/EOMI (does not follow commands) NECK: JVD elevated, no thyromegaly Lymph: no lymphadenopathy HEART: regular with no S3, II/ systolic murmur at apex, PMI L LUNGS: Coarse sounds ABD: soft, NT, ND, +BS : Intact Neuro: non focal SKIN: chronic changes EXT: trace edema Results/Medications Result Diagram: 03/01/19 0502 03/01/19 0502 Results 24 hrs Laboratory Tests Test 02/28/19 12:00 02/28/19 13:12 02/28/19 17:22 02/28/19 20:00 Blood Gas Blood arterial Specimen Source Arterial Blood 02/28/2019 12:15: Date Drawn 09 PM Arterial Blood pH 7.511 H (Temp corrected) Arterial Blood 38.3 pCO2 (Temp correct) Arterial Blood 85.6 pO2 (Temp corrected) Arterial Blood 29.9 H HCO3 Arterial Blood 6.6 H Base Excess Arterial Blood 96.8 Oxygen Saturation [place] Test ACCEPTAB Arterial Blood Right Radial Gas Puncture Site Arterial 0.6 Blood Carboxyhemo globin Arterial Blood 0.3 Methemoglobin Blood Gas A-a O2 83.3 H Differential Oxyhemoglobin 95.9 Percent Blood Gas 37.0 Temperature Blood Gas Actual 35 Respiration Rate Blood Gas VENT - CPAP Modality FiO2 30.0 Blood Gas Low 5.0 PEEP Setting Blood Gas 10 Pressure Support Blood Gas TM Notified Whom Blood Gas 02/28/2019 12:37: Notified Time 17 PM Bedside Glucose 115 151 103 Test 03/01/19 00:58 03/01/19 05:02 03/01/19 05:17 03/01/19 09:35 Bedside Glucose 120 136 105 White Blood Count 7.5 # Red Blood Count 5.08 Hemoglobin 13.8 Hematocrit 45.0 Mean Corpuscular 88.6 Volume Mean Corpuscular 27.2 L Hemoglobin Mean Corpuscular 30.7 L Hemoglobin Concen t Red Cell 20.0 H Distribution Width Platelet Count 238 # Mean Platelet 9.7 Volume Immature 2.100 H Granulocytes % Neutrophils % 72.9 Lymphocytes % 11.9 L Monocytes % 9.0 Eosinophils % 2.8 Basophils % 1.3 Nucleated Red 0.0 Blood Cells % Immature 0.160 H Granulocytes # Neutrophils # 5.5 Lymphocytes # 0.9 Monocytes # 0.7 Eosinophils # 0.2 Basophils # 0.1 Nucleated Red 0.0 Blood Cells # Sodium Level 141 Potassium Level 3.8 Chloride Level 102 Carbon Dioxide 32 H Level Anion Gap 7 Blood Urea 21 H Nitrogen Creatinine 0.60 Est Glomerular > 60 Filtrat Rate mL/min Glucose Level 141 Calcium Level 8.9 Phosphorus Level 3.7 Magnesium Level 2.4 Home Meds Reported Medications [place] Carbonate* ([place]*) 300 Mg Cap, 600 MG PO QHS, CAP 02/12/19 Levothyroxine Sodium* (Levoxyl*) 88 Mcg Tablet, 88 MCG PO BEFORE BREAKFAST, #30 TAB 02/12/19 Loxapine Succinate (Loxapine) 10 Mg Capsule, 10 MG PO QHS, CAP 02/12/19 Cyanocobalamin* (Vitamin B12*) 100 Mcg Tab, 100 MCG PO DAILY, TAB 02/12/19 Loratadine* (Loratadine*) 10 Mg Tablet, 10 MG PO DAILY, #30 TAB 02/12/19 Metformin Hcl* (Metformin Hcl*) 500 Mg Tablet, 500 MG PO WITH BREAKFAST, #30 TAB 02/12/19 Propranolol Hcl* (Propranolol Hcl*) 10 Mg Tablet, 10 MG PO BID, TAB 02/12/19 Ergocalciferol (Vitamin D2) (VITAMIN D2) 50,000 Unit Capsule, 14204 UNIT PO EVERY SUNDAY, CAP 02/12/19 Medications Current Medications IV Flush (NS 3 ml) 3 ml PER PROTOCOL IV ; Start 02/12/19 at 15:30 Ondansetron HCl (Zofran Inj) 4 mg Q6H PRN IV NAUSEA/VOMITING; Start 02/12/19 at 15:30 Acetaminophen (Tylenol Tab) 650 mg Q6H PRN PO .PAIN 1-3 OR TEMP Last administer ed on 02/27/19at 14:40; Admin Dose 650 MG; Start 02/12/19 at 15:30 Docusate Sodium (Colace) 100 mg Q12H PRN PO .CONSTIPATION Last administered on 02/21/19at 14:05; Admin Dose 100 MG; Start 02/12/19 at 15:30; Status Hold Enoxaparin Sodium (Lovenox) 40 mg DAILY SC Last administered on 03/01/19at 09:37; Admin Dose 40 MG; Start 02/13/19 at 09:00 Propofol 100 ml @ 3.027 mls/ hr Q12H IV Last administered on 02/25/19at 01:55; Admin Dose 6.054 MLS/HR; Start 02/13/19 at 00:30 Fentanyl 100 ml @ 2.5 mls/hr TITRATE IV Last administered on 02/24/19at 19:21; Admin Dose 3 MLS/HR; Start 02/13/19 at 12:00 Levothyroxine Sodium (Synthroid) 88 mcg BEFORE BREAKFAST PO Last administered on 03/01/19at 05:10; Admin Dose 88 MCG; Start 02/15/19 at 07:00 Miscellaneous Information 1 ea NOTE XX ; Start 02/14/19 at 10:30 Glucose (Glutose) 15 gm Q15M PRN PO DECREASED GLUCOSE; Start 02/14/19 at 10:30 Glucose (Glutose) 22.5 gm Q15M PRN PO DECREASED GLUCOSE; Start 02/14/19 at 10:30 Dextrose (D50w Syringe) 25 ml Q15M PRN IV DECREASED GLUCOSE; Start 02/14/19 at 10:30 Dextrose (D50w Syringe) 50 ml Q15M PRN IV DECREASED GLUCOSE; Start 02/14/19 at 10:30 Glucagon (Glucagen) 1 mg Q15M PRN IM DECREASED GLUCOSE; Start 02/14/19 at 10:30 Glucose (Glutose) 15 gm Q15M PRN BUCCAL DECREASED GLUCOSE; Start 02/14/19 at 10:30 Insulin Aspart (Novolog Insulin Pen) NOVOLOG *MILD* ALGORI... Q4 SC Last administered on 02/28/19at 17:34; Admin Dose 1 UNIT; Start 02/15/19 at 05:00 Docusate Sodium (Colace Liquid Cup) 100 mg BID NGT Last administered on 02/24/19at 21:15; Admin Dose 100 MG; Start 02/15/19 at 11:00; Status Hold Bisacodyl (Dulcolax Supp) 10 mg DAILY PRN [place] CONSTIPATION Last administered on 02/21/19at 14:06; Admin Dose 10 MG; Start 02/15/19 at 11:00 Famotidine (Pepcid) 20 mg Q12 NGT Last administered on 02/28/19at 20:04; Admin Dose 20 MG; Start 02/18/19 at 21:00 IV Flush (NS 10 ml) 10 ml PRN PRN IV IV PROTOCOL; Start 02/18/19 at 15:30 Fluconazole (Diflucan) 100 mg DAILY PO Last administered on 03/01/19at 09:35; Admin Dose 100 MG; Start 02/19/19 at 12:30 Metronidazole 100 ml @ 100 mls/hr Q8 IVPB Last administered on 03/01/19at 05:07; Admin Dose 100 MLS/HR; Start 02/23/19 at 15:30 Furosemide (Lasix) 20 mg DAILY IV Last administered on 03/01/19at 09:38; Admin Dose 20 MG; Start 02/26/19 at 09:00 Scopolamine (Transderm-Scop) 1 patch Q72H PRN TRANSDERM PRN SECRETIONS Last administered on 02/25/19at 22:40; Admin Dose 1 PATCH; Start 02/25/19 at 22:30 Albuterol/ Ipratropium (Duoneb) 3 ml Q6H RESP THERAPY HHN ; Start 03/01/19 at 14:00 Assessment/Plan Hospital Course (Demo Recall) 1. Respiratory failure, assess for congestive heart failure - now intubated, con't supportive Rx. Con't to wean as tolerated. Con't to wean per pulmonary team. Extubated - apperas to be saturating well. 2. Lower extremity edema, assess for congestive heart failure- con't diuresis - increased urine output. On meds now. Rate controlled. Improved. Con't to monitor clinically now, 3. Tachycardia, improved, status post intubation, likely due to respiratory distress. Sinus tach - better now. Treated. NOw in sinus at 90s - con't resp care., Better overall. Rate controlled. Rate controlled. 4. Abnormal electrocardiogram with right axis deviation and T-wave flattening. Assess for acute coronary syndrome. NO CP now. 5. Down syndrome. Supportive Rx as needed. 6. Hypothyroidism - on meds. Treated. 7. Diabetes mellitus- con't to keep euglycemic. Con't to keep euglycemic. On meds. 8. Obstructive sleep apnea- on vent. 9. CHF - diast HF - acute on chronic, con'y gentle diuresis. Lasix IV now. BRIAN PATTERSON MD Mar 01, 2019 11:08
--- NOTE | 2019-03-01 14:23 | PN ---
Date/Time of Note Date/Time of Note DATE: 03/01/19 TIME: 14:13 Assessment/Plan VTE Prophylaxis Risk score (from Ns)>0 risk: 3 SCD applied (from Ns): Yes Pharmacological prophylaxis: LMWH Lines/Catheters IV Catheter Type (from Nrs): PICC Line Central line still needed: Yes Urinary Cath still in place: Yes Reason Cath still needed: urinary retention Assessment/Plan Hospital Course 1. Severe altered mental status likely secondary to metabolic encephalopathy, likely secondary to CO2 narcosis. pt is still confused. 2. Hypoxic respiratory failure, resolving 3. Respiratory alkalosis 4. Morbid obesity. 5. Down syndrome. 6. Hypertension, now normotensive. 7. Diabetes. 8. History of ventral hernia repair. 9. Leukocytosis secondary to pneumonia, resolved 10. Hypothyroidism 11. [place], more likely due to sepsis, resolved Assessment/Plan -Sputum is growing yeast -WBC decreased, normalized -Has low-grade fever today -pt is extubated -Patient is npo - low dose lasix - Chest Xray, effusion increased bilaterally -Continue with Flagyl/Diflucan per ID -c/w pulmonary. - cw levothyroxine -cardiology input is appreciated - GI Famotidine BID - dvt Prophylaxis Lovenox - Replete K as needed Result Diagram: 03/01/19 0502 03/01/19 0502 Results 24hrs Laboratory Tests Test 02/28/19 17:22 02/28/19 20:00 03/01/19 00:58 03/01/19 05:02 Bedside Glucose 151 103 120 White Blood Count 7.5 # Red Blood Count 5.08 Hemoglobin 13.8 Hematocrit 45.0 Mean Corpuscular 88.6 Volume Mean Corpuscular 27.2 L Hemoglobin Mean Corpuscular 30.7 L Hemoglobin Concent Red Cell 20.0 H Distribution Width Platelet Count 238 # Mean Platelet Volume 9.7 Immature 2.100 H Granulocytes % Neutrophils % 72.9 Lymphocytes % 11.9 L Monocytes % 9.0 Eosinophils % 2.8 Basophils % 1.3 Nucleated Red Blood 0.0 Cells % Immature 0.160 H Granulocytes # Neutrophils # 5.5 Lymphocytes # 0.9 Monocytes # 0.7 Eosinophils # 0.2 Basophils # 0.1 Nucleated Red Blood 0.0 Cells # Sodium Level 141 Potassium Level 3.8 Chloride Level 102 Carbon Dioxide Level 32 H Anion Gap 7 Blood Urea Nitrogen 21 H Creatinine 0.60 Est Glomerular > 60 Filtrat Rate mL/min Glucose Level 141 Calcium Level 8.9 Phosphorus Level 3.7 Magnesium Level 2.4 Test 03/01/19 05:17 03/01/19 09:35 03/01/19 13:13 Bedside Glucose 136 105 93 Subjective 24 Hr Interval Summary Free Text/Dictation Unable to perform review of systems patient is confused does not follow commands but mild. Subjective hx not possible: pt critical status Constitutional: disoriented Exam/Review of Systems Exam Vitals Vital Signs Date Temp Pulse Resp B/P (MAP) Pulse Ox O2 O2 Flow FiO2 Time Delivery Rate 03/01/19 81 29 96/68 (77) 98 3.0 13:00 03/01/19 99.1 13:00 03/01/19 Mechanical 12:00 Ventilator 03/01/19 30 05:51 Intake and Output 02/28/19 02/28/19 03/01/19 1515:00 23:00 07:00 IntakeIntake Total 455.225 ml 565.135 ml 376.1 ml OutputOutput Total 1090 ml 340 ml 215 ml BalanceBalance -634.775 ml 225.135 ml 161.1 ml Exam No acute distress, no events overnight. Eyes: anicteric, EOM's intact, no pallor Nose: no rhinorrhea Neck: supple, no thyromegaly, no carotid bruits, short neck Lungs: clear bilaterally, decreased., Patient is on supplemental oxygen via nasal cannula CVS: regular rate and rhythm, no murmurs Abdomen: soft, bowel sounds present, no hepatosplenomegally, no masses, no rebound or guarding, obese. Rectal: differed. External genitalia: no lesions., [place] Extremities: Trace edema, DP palpable Neuro: alert and oriented x 3 Gait: Unable to assess Motor strength: Unable to assess patient is not willing to move Sensory exam is normal Deep tendon reflexes: Unable to assess Skin: no lesions Results Results 24hrs Laboratory Tests Test 02/28/19 17:22 02/28/19 20:00 03/01/19 00:58 03/01/19 05:02 Bedside Glucose 151 103 120 White Blood Count 7.5 # Red Blood Count 5.08 Hemoglobin 13.8 Hematocrit 45.0 Mean Corpuscular 88.6 Volume Mean Corpuscular 27.2 L Hemoglobin Mean Corpuscular 30.7 L Hemoglobin Concent Red Cell 20.0 H Distribution Width Platelet Count 238 # Mean Platelet Volume 9.7 Immature 2.100 H Granulocytes % Neutrophils % 72.9 Lymphocytes % 11.9 L Monocytes % 9.0 Eosinophils % 2.8 Basophils % 1.3 Nucleated Red Blood 0.0 Cells % Immature 0.160 H Granulocytes # Neutrophils # 5.5 Lymphocytes # 0.9 Monocytes # 0.7 Eosinophils # 0.2 Basophils # 0.1 Nucleated Red Blood 0.0 Cells # Sodium Level 141 Potassium Level 3.8 Chloride Level 102 Carbon Dioxide Level 32 H Anion Gap 7 Blood Urea Nitrogen 21 H Creatinine 0.60 Est Glomerular > 60 Filtrat Rate mL/min Glucose Level 141 Calcium Level 8.9 Phosphorus Level 3.7 Magnesium Level 2.4 Test 03/01/19 05:17 03/01/19 09:35 03/01/19 13:13 Bedside Glucose 136 105 93 Medications Medication Current Medications IV Flush (NS 3 ml) 3 ml PER PROTOCOL IV ; Start 02/12/19 at 15:30 Ondansetron HCl (Zofran Inj) 4 mg Q6H PRN IV NAUSEA/VOMITING; Start 02/12/19 at 15:30 Acetaminophen (Tylenol Tab) 650 mg Q6H PRN PO .PAIN 1-3 OR TEMP Last administered on 02/27/19 14:40; Admin Dose 650 MG; Start 02/12/19 at 15:30 Docusate Sodium (Colace) 100 mg Q12H PRN PO .CONSTIPATION Last administered on 02/21/19 14:05; Admin Dose 100 MG; Start 02/12/19 at 15:30; Status Hold Enoxaparin Sodium (Lovenox) 40 mg DAILY SC Last administered on 03/01/19at 09:37; Admin Dose 40 MG; Start 02/13/19 at 09:00 Propofol 100 ml @ 3.027 mls/ hr Q12H IV Last administered on 02/25/19 01:55; Admin Dose 6.054 MLS/HR; Start 02/13/19 at 00:30 Fentanyl 100 ml @ 2.5 mls/hr TITRATE IV Last administered on 02/24/19 19:21; Admin Dose 3 MLS/HR; Start 02/13/19 at 12:00 Levothyroxine Sodium (Synthroid) 88 mcg BEFORE BREAKFAST PO Last administered on 03/01/19at 05:10; Admin Dose 88 MCG; Start 02/15/19 at 07:00 Miscellaneous Information 1 ea NOTE XX ; Start 02/14/19 at 10:30 Glucose (Glutose) 15 gm Q15M PRN PO DECREASED GLUCOSE; Start 02/14/19 at 10:30 Glucose (Glutose) 22.5 gm Q15M PRN PO DECREASED GLUCOSE; Start 02/14/19 at 10:30 Dextrose (D50w Syringe) 25 ml Q15M PRN IV DECREASED GLUCOSE; Start 02/14/19 at 10:30 Dextrose (D50w Syringe) 50 ml Q15M PRN IV DECREASED GLUCOSE; Start 02/14/19 at 10:30 Glucagon (Glucagen) 1 mg Q15M PRN IM DECREASED GLUCOSE; Start 02/14/19 at 10:30 Glucose (Glutose) 15 gm Q15M PRN BUCCAL DECREASED GLUCOSE; Start 02/14/19 at 10:30 Insulin Aspart (Novolog Insulin Pen) NOVOLOG *MILD* ALGORI... Q4 SC Last admi nistered on 02/28/19at 17:34; Admin Dose 1 UNIT; Start 02/15/19 at 05:00 Docusate Sodium (Colace Liquid Cup) 100 mg BID NGT Last administered on 02/24/19at 21:15; Admin Dose 100 MG; Start 02/15/19 at 11:00; Status Hold Bisacodyl (Dulcolax Supp) 10 mg DAILY PRN [place] CONSTIPATION Last administered on 02/21/19at 14:06; Admin Dose 10 MG; Start 02/15/19 at 11:00 Famotidine (Pepcid) 20 mg Q12 NGT Last administered on 02/28/19at 20:04; Admin Dose 20 MG; Start 02/18/19 at 21:00 IV Flush (NS 10 ml) 10 ml PRN PRN IV IV PROTOCOL; Start 02/18/19 at 15:30 Fluconazole (Diflucan) 100 mg DAILY PO Last administered on 03/01/19at 09:35; Admin Dose 100 MG; Start 02/19/19 at 12:30 Metronidazole 100 ml @ 100 mls/hr Q8 IVPB Last administered on 03/01/19at 13:16; Admin Dose 100 MLS/HR; Start 02/23/19 at 15:30 Furosemide (Lasix) 20 mg DAILY IV Last administered on 03/01/19at 09:38; Admin Dose 20 MG; Start 02/26/19 at 09:00 Scopolamine (Transderm-Scop) 1 patch Q72H PRN TRANSDERM PRN SECRETIONS Last administered on 02/25/19at 22:40; Admin Dose 1 PATCH; Start 02/25/19 at 22:30 Albuterol/ Ipratropium (Duoneb) 3 ml Q6H RESP THERAPY HHN ; Start 03/01/19 at 14:00 CARY GIPSON Mar 01, 2019 14:23
[2019-03-01] MEDS: ALBUTEROL/IPRATROPIUM (NEB) 3 ML AMP HHN SCH ×2 (14:30→22:07)
[2019-03-02] VITALS (25 sets, daily range): BP systolic 87–148; BP diastolic 53–123; PULSE 83–112; RESP 13–40
[2019-03-02] MEDS: INSULIN ASPART [NOVOLOG] 3 ML PEN SC SCH ×6 (00:54→20:24)
[2019-03-02] MEDS: ALBUTEROL/IPRATROPIUM (NEB) 3 ML AMP HHN SCH ×4 (02:05→20:14)
[2019-03-02] MEDS: metroNIDAZOLE 500 MG/NS (PMX) 100 ML IVPB SCH ×2 (05:27→17:44)
[2019-03-02] MEDS: LEVOTHYROXINE 88 MCG TAB PO SCH (05:27)
[2019-03-02] MEDS: FUROSEMIDE 20 MG INJ IV SCH (08:35)
[2019-03-02] MEDS: FAMOTIDINE 20 MG TAB NGT SCH ×2 (08:35→20:25)
[2019-03-02] MEDS: ENOXAPARIN 40 MG/0.4 ML SYG SC SCH (08:37)
[2019-03-02] MEDS: FLUCONAZOLE 100 MG TAB PO SCH (08:40)
--- NOTE | 2019-03-02 09:44 | CONS ---
Consult Date/Type/Reason Admit Date/Time Feb 12, 2019 at 12:24 Initial Consult Date Type of Consult Pulmonary Requesting Provider: LORNA LYONS MD Date/Time of Note DATE: 03/02/19 TIME: 09:41 Subjective Patient stable this morning post extubation yesterday. Awake alert no respiratory distress. On room air. Objective Vital Signs Date Temp Pulse Resp B/P (MAP) Pulse Ox O2 O2 Flow FiO2 Time Delivery Rate 03/02/19 110 08:00 03/02/19 17 96 21 07:37 03/02/19 102/58 Nasal 2.0 06:00 (73) Cannula 03/02/19 98.3 04:00 Intake and Output 03/01/19 03/01/19 03/02/19 1515:00 23:00 07:00 IntakeIntake Total 100 ml 100 ml 160 ml OutputOutput Total 870 ml 140 ml 235 ml BalanceBalance -770 ml -40 ml -75 ml Exam GENERAL: Well-nourished well-developed lady VITAL SIGNS: per chart NECK: Supple. No JVD or lymphadenopathy. CARDIAC EXAM: S1, S2. No added sounds or murmurs. CHEST: clear bilaterally, No added sounds, rales or wheezes ABDOMEN: Soft, nontender. No guarding or rebound. EXTREMITIES: No cyanosis, clubbing or edema. NEUROLOGIC: Generalized weakness. Vent Setting Ventilator Support Mode: CPAP, PS Fraction of Inspired Oxygen pe: 21 Positive End Expiratory Pressu: 5.0 Results/Medications Result Diagram: 03/02/19 0400 03/02/19 0400 Results 24 hrs Laboratory Tests Test 03/01/19 13:13 03/01/19 17:18 03/01/19 20:50 03/02/19 00:53 Bedside Glucose 93 93 99 99 Test 03/02/19 04:00 03/02/19 04:42 03/02/19 08:25 White Blood Count 7.9 Red Blood Count 5.30 Hemoglobin 14.5 Hematocrit 46.1 Mean Corpuscular 87.0 Volume Mean Corpuscular 27.4 L Hemoglobin Mean Corpuscular 31.5 L Hemoglobin Concent Red Cell 20.6 H Distribution Width Platelet Count 260 Mean Platelet Volume 10.2 Immature 2.900 H Granulocytes % Neutrophils % 69.3 Lymphocytes % 14.9 L Monocytes % 10.3 Eosinophils % 1.3 Basophils % 1.3 Nucleated Red Blood 0.0 Cells % Immature 0.230 H Granulocytes # Neutrophils # 5.4 Lymphocytes # 1.2 Monocytes # 0.8 Eosinophils # 0.1 Basophils # 0.1 Nucleated Red Blood 0.0 Cells # Sodium Level 139 Potassium Level 3.6 Chloride Level 99 Carbon Dioxide Level 28 Anion Gap 12 Blood Urea Nitrogen 22 H Creatinine 0.77 Est Glomerular > 60 Filtrat Rate mL/min Glucose Level 100 # Calcium Level 8.9 Phosphorus Level 3.0 Magnesium Level 2.2 Bedside Glucose 122 151 Medications Current Medications IV Flush (NS 3 ml) 3 ml PER PROTOCOL IV ; Start 02/12/19 at 15:30 Ondansetron HCl (Zofran Inj) 4 mg Q6H PRN IV NAUSEA/VOMITING; Start 02/12/19 at 15:30 Acetaminophen (Tylenol Tab) 650 mg Q6H PRN PO .PAIN 1-3 OR TEMP Last administered on 02/27/19 14:40; Admin Dose 650 MG; Start 02/12/19 at 15:30 Docusate Sodium (Colace) 100 mg Q12H PRN PO .CONSTIPATION Last administered on 02/21/19 14:05; Admin Dose 100 MG; Start 02/12/19 at 15:30; Status Hold Enoxaparin Sodium (Lovenox) 40 mg DAILY SC Last administered on 03/02/19 08:37; Admin Dose 40 MG; Start 02/13/19 at 09:00 Propofol 100 ml @ 3.027 mls/ hr Q12H IV Last administered on 02/25/19 01:55; Admin Dose 6.054 MLS/HR; Start 02/13/19 at 00:30 Fentanyl 100 ml @ 2.5 mls/hr TITRATE IV Last administered on 02/24/19 19:21; Admin Dose 3 MLS/HR; Start 02/13/19 at 12:00 Levothyroxine Sodium (Synthroid) 88 mcg BEFORE BREAKFAST PO Last administered on 03/01/19 05:10; Admin Dose 88 MCG; Start 02/15/19 at 07:00 Miscellaneous Information 1 ea NOTE XX ; Start 02/14/19 at 10:30 Glucose (Glutose) 15 gm Q15M PRN PO DECREASED GLUCOSE; Start 02/14/19 at 10:30 Glucose (Glutose) 22.5 gm Q15M PRN PO DECREASED GLUCOSE; Start 02/14/19 at 10:30 Dextrose (D50w Syringe) 25 ml Q15M PRN IV DECREASED GLUCOSE; Start 02/14/19 at 10:30 Dextrose (D50w Syringe) 50 ml Q15M PRN IV DECREASED GLUCOSE; Start 02/14/19 at 10:30 Glucagon (Glucagen) 1 mg Q15M PRN IM DECREASED GLUCOSE; Start 02/14/19 at 10:30 Glucose (Glutose) 15 gm Q15M PRN BUCCAL DECREASED GLUCOSE; Start 02/14/19 at 10:30 Insulin Aspart (Novolog Insulin Pen) NOVOLOG *MILD* ALGORI... Q4 SC Last administered on 03/02/19at 08:36; Admin Dose 1 UNIT; Start 02/15/19 at 05:00 Docusate Sodium (Colace Liquid Cup) 100 mg BID NGT Last administered on 02/24/19at 21:15; Admin Dose 100 MG; Start 02/15/19 at 11:00; Status Hold Bisacodyl (Dulcolax Supp) 10 mg DAILY PRN [place] CONSTIPATION Last administered on 02/21/19 14:06; Admin Dose 10 MG; Start 02/15/19 at 11:00 Famotidine (Pepcid) 20 mg Q12 NGT Last administered on 03/02/19 08:35; Admin Dose 20 MG; Start 02/18/19 at 21:00 IV Flush (NS 10 ml) 10 ml PRN PRN IV IV PROTOCOL; Start 02/18/19 at 15:30 Fluconazole (Diflucan) 100 mg DAILY PO Last administered on 03/02/19 08:40; Admin Dose 100 MG; Start 02/19/19 at 12:30 Metronidazole 100 ml @ 100 mls/hr Q8 IVPB Last administered on 03/02/19 05:27; Admin Dose 100 MLS/HR; Start 02/23/19 at 15:30 Furosemide (Lasix) 20 mg DAILY IV Last administered on 03/02/19 08:35; Admin Dose 20 MG; Start 02/26/19 at 09:00 Scopolamine (Transderm-Scop) 1 patch Q72H PRN TRANSDERM PRN SECRETIONS Last administered on 02/25/19at 22:40; Admin Dose 1 PATCH; Start 02/25/19 at 22:30 Albuterol/ Ipratropium (Duoneb) 3 ml Q6H RESP THERAPY HHN Last administered on 03/02/19at 07:36; Admin Dose 3 ML; Start 03/01/19 at 14:00 Assessment/Plan Hospital Course (Demo Recall) IMP: 1. Hypoxemic Respiratory Failure: imaging findings consistent with a multifocal pneumonia. Now extubated on room air. Probable underlying obstructive sleep apnea as noted. 2. Down's Syndrome 3. EILEEN 4. HTN 5. DM RECS: 1. Continue broad-spectrum abx 2. Follow-up cultures increase Lasix to 40 mg daily 3. Nocturnal BiPAP 4. Post extubation speech therapy evaluation strict aspiration precautions 5. DVT GI prophylaxis 6. Physical therapy evaluation. 40 min cc time discussed with mother at bedside. MARY ANN MCKEON MD, [facility] Mar 02, 2019 09:44
--- NOTE | 2019-03-02 10:47 | CONS ---
Consult Date/Type/Reason Admit Date/Time Feb 12, 2019 at 12:24 Initial Consult Date Type of Consultation: Pulm/CCM Requesting Provider: LORNA LYONS MD Date/Time of Note DATE: 03/02/19 TIME: 10:44 Subjective NO acute events - patient a little tachy - urine dark - will keep euvolemic now. ROS: No fever, no chills, no nausea, no vomiting, no diarrhea/constipation No recent weight changes No chest pain, no PND, no orthopnea - SOB noted No dizziness, blurred vision No thirst, no heat or cold intolerance Objective Vitals Vital Signs Date Temp Pulse Resp B/P (MAP) Pulse Ox O2 O2 Flow FiO2 Time Delivery Rate 03/02/19 110 08:00 03/02/19 17 96 21 07:37 03/02/19 102/58 Nasal 2.0 06:00 (73) Cannula 03/02/19 98.3 04:00 Intake and Output 03/01/19 03/01/19 03/02/19 1515:00 23:00 07:00 IntakeIntake Total 100 ml 100 ml 160 ml OutputOutput Total 870 ml 140 ml 235 ml BalanceBalance -770 ml -40 ml -75 ml Results/Medications Result Diagram: 03/02/19 0400 03/02/19 0400 Results 24 hrs Laboratory Tests Test 03/01/19 13:13 03/01/19 17:18 03/01/19 20:50 03/02/19 00:53 Bedside Glucose 93 93 99 99 Test 03/02/19 04:00 03/02/19 04:42 03/02/19 08:25 White Blood Count 7.9 Red Blood Count 5.30 Hemoglobin 14.5 Hematocrit 46.1 Mean Corpuscular 87.0 Volume Mean Corpuscular 27.4 L Hemoglobin Mean Corpuscular 31.5 L Hemoglobin Concent Red Cell 20.6 H Distribution Width Platelet Count 260 Mean Platelet Volume 10.2 Immature 2.900 H Granulocytes % Neutrophils % 69.3 Lymphocytes % 14.9 L Monocytes % 10.3 Eosinophils % 1.3 Basophils % 1.3 Nucleated Red Blood 0.0 Cells % Immature 0.230 H Granulocytes # Neutrophils # 5.4 Lymphocytes # 1.2 Monocytes # 0.8 Eosinophils # 0.1 Basophils # 0.1 Nucleated Red Blood 0.0 Cells # Sodium Level 139 Potassium Level 3.6 Chloride Level 99 Carbon Dioxide Level 28 Anion Gap 12 Blood Urea Nitrogen 22 H Creatinine 0.77 Est Glomerular > 60 Filtrat Rate mL/min Glucose Level 100 # Calcium Level 8.9 Phosphorus Level 3.0 Magnesium Level 2.2 Bedside Glucose 122 151 Home Meds Reported Medications [place] Carbonate* ([place]*) 300 Mg Cap, 600 MG PO QHS, CAP 02/12/19 Levothyroxine Sodium* (Levoxyl*) 88 Mcg Tablet, 88 MCG PO BEFORE BREAKFAST, #30 TAB 02/12/19 Loxapine Succinate (Loxapine) 10 Mg Capsule, 10 MG PO QHS, CAP 02/12/19 Cyanocobalamin* (Vitamin B12*) 100 Mcg Tab, 100 MCG PO DAILY, TAB 02/12/19 Loratadine* (Loratadine*) 10 Mg Tablet, 10 MG PO DAILY, #30 TAB 02/12/19 Metformin Hcl* (Metformin Hcl*) 500 Mg Tablet, 500 MG PO WITH BREAKFAST, #30 TAB 02/12/19 Propranolol Hcl* (Propranolol Hcl*) 10 Mg Tablet, 10 MG PO BID, TAB 02/12/19 Ergocalciferol (Vitamin D2) (VITAMIN D2) 50,000 Unit Capsule, 81331 UNIT PO EVERY SUNDAY, CAP 02/12/19 Medications Current Medications IV Flush (NS 3 ml) 3 ml PER PROTOCOL IV ; Start 02/12/19 at 15:30 Ondansetron HCl (Zofran Inj) 4 mg Q6H PRN IV NAUSEA/VOMITING; Start 02/12/19 at 15:30 Acetaminophen (Tylenol Tab) 650 mg Q6H PRN PO .PAIN 1-3 OR TEMP Last administered on 02/27/19at 14:40; Admin Dose 650 MG; Start 02/12/19 at 15:30 Docusate Sodium (Colace) 100 mg Q12H PRN PO .CONSTIPATION Last administered on 02/21/19at 14:05; Admin Dose 100 MG; Start 02/12/19 at 15:30; Status Hold Enoxaparin Sodium (Lovenox) 40 mg DAILY SC Last administered on 03/02/19at 08:37; Admin Dose 40 MG; Start 02/13/19 at 09:00 Propofol 100 ml @ 3.027 mls/ hr Q12H IV Last administered on 02/25/19at 01:55; Admin Dose 6.054 MLS/HR; Start 02/13/19 at 00:30 Fentanyl 100 ml @ 2.5 mls/hr TITRATE IV Last administered on 02/24/19at 19:21; Admin Dose 3 MLS/HR; Start 02/13/19 at 12:00 Levothyroxine Sodium (Synthroid) 88 mcg BEFORE BREAKFAST PO Last administered on 03/01/19 05:10; Admin Dose 88 MCG; Start 02/15/19 at 07:00 Miscellaneous Information 1 ea NOTE XX ; Start 02/14/19 at 10:30 Glucose (Glutose) 15 gm Q15M PRN PO DECREASED GLUCOSE; Start 02/14/19 at 10:30 Glucose (Glutose) 22.5 gm Q15M PRN PO DECREASED GLUCOSE; Start 02/14/19 at 10:30 Dextrose (D50w Syringe) 25 ml Q15M PRN IV DECREASED GLUCOSE; Start 02/14/19 at 10:30 Dextrose (D50w Syringe) 50 ml Q15M PRN IV DECREASED GLUCOSE; Start 02/14/19 at 10:30 Glucagon (Glucagen) 1 mg Q15M PRN IM DECREASED GLUCOSE; Start 02/14/19 at 10:30 Glucose (Glutose) 15 gm Q15M PRN BUCCAL DECREASED GLUCOSE; Start 02/14/19 at 10:30 Insulin Aspart (Novolog Insulin Pen) NOVOLOG *MILD* ALGORI... Q4 SC Last administered on 03/02/19at 08:36; Admin Dose 1 UNIT; Start 02/15/19 at 05:00 Docusate Sodium (Colace Liquid Cup) 100 mg BID NGT Last administered on 02/24/19at 21:15; Admin Dose 100 MG; Start 02/15/19 at 11:00; Status Hold Bisacodyl (Dulcolax Supp) 10 mg DAILY PRN [place] CONSTIPATION Last administered on 02/21/19at 14:06; Admin Dose 10 MG; Start 02/15/19 at 11:00 Famotidine (Pepcid) 20 mg Q12 NGT Last administered on 03/02/19at 08:35; Admin Dose 20 MG; Start 02/18/19 at 21:00 IV Flush (NS 10 ml) 10 ml PRN PRN IV IV PROTOCOL; Start 02/18/19 at 15:30 Fluconazole (Diflucan) 100 mg DAILY PO Last administered on 03/02/19at 08:40; Admin Dose 100 MG; Start 02/19/19 at 12:30 Metronidazole 100 ml @ 100 mls/hr Q8 IVPB Last administered on 03/02/19at 05:27; Admin Dose 100 MLS/HR; Start 02/23/19 at 15:30 Scopolamine (Transderm-Scop) 1 patch Q72H PRN TRANSDERM PRN SECRETIONS Last administered on 02/25/19at 22:40; Admin Dose 1 PATCH; Start 02/25/19 at 22:30 Albuterol/ Ipratropium (Duoneb) 3 ml Q6H RESP THERAPY HHN Last administered on 03/02/19at 07:36; Admin Dose 3 ML; Start 03/01/19 at 14:00 Furosemide (Lasix) 40 mg DAILY IV ; Start 03/03/19 at 09:00 Assessment/Plan Hospital Course (Demo Recall) 1. Respiratory failure, assess for congestive heart failure - now intubated, con't supportive Rx. Con't to wean as tolerated. Con't to wean per pulmonary team. Extubated - appears to be saturating well - con't to follow - luz spot lasix if needed. 2. Lower extremity edema, assess for congestive heart failure- con't diuresis - increased urine output. On meds now. Rate controlled. Improved. Con't to monitor clinically now, 3. Tachycardia, improved, status post intubation, likely due to respiratory distress. Sinus tach - better now. Treated. NOw in sinus at 90s - con't resp care., Better overall. Rate controlled. Labile - no fever - luz monitor now. 4. Abnormal electrocardiogram with right axis deviation and T-wave flattening. Assess for acute coronary syndrome. NO CP now. 5. Down syndrome. Supportive Rx as needed. 6. Hypothyroidism - on meds. Treated. On meds. 7. Diabetes mellitus- con't to keep euglycemic. Con't to keep euglycemic. On meds. 8. Obstructive sleep apnea- on vent. 9. CHF - diast HF - acute on chronic, con'y gentle diuresis. Spot Rx as needed. BRIAN PATTERSON MD Mar 02, 2019 10:47
--- NOTE | 2019-03-02 11:10 | CONS ---
Assessment/Plan Assessment/Plan Hospital Course (Demo Recall) ID PROGRESS NOTE CURRENT ABX: DAY # 18=> Diflucan # 11 + Flagyl #6 s/p Vanco IV + Cefepime 2GM (increased dose 02/16 pm) + Levaquin s/p Ceftriaxone 7 HPI/HOSPITAL COURSE * 28 yo F w/Down's Syndrome and super morbid obesity (BMI >46.5) -> Admit with sepsis, shock, multifocal PNA * Intubated/ mechanical Vent /PICC line placed - IV STEROIDS * Now extubated 4H INTERVAL SUMMARY * Awake, alert, lethargic w/generalized weakness -- stable post extubation * => appreciate Speech Tx evaluation --- not ready for solids, too weak * Low grade temps, hypotension intermittent * CT (+)Colitis * WBC normalized * Completed course of ABX for Staph aureus multi-focal PNA MICRO * 02/26/19 (-)C.DIFF * 02/24/19 SPUTUM (+)YEAST * SPUTUM (-) * 02/15/19 RESPIRATORY CULTURE STAPH AUREUS * 02/15/19 BCx (-) * 02/15/19 UA/Cx (-) * 02/12/UA (-) * 02/12/19 BCx (-) DIAGNOSTIC IMAGING * 02/17/19 CXR: 1. Right greater than left interstitial opacities may reflect interstitial edema or pneumonia. Findings are mildly increased when compared to the prior examination.2. Left basilar atelectasis versus pneumonia, also increased.3. Small bilateral pleural effusions.4. Tubes and lines, as described above. * 02/15/19 CXR:IMPRESSION: Placement of left arm PICC line with tip in the superior vena cava.Endotracheal tube and nasogastric tube in place unchanged. Low volumes with hilar vascular crowding and mild bibasilar atelectasis per. * 02/12/19 CXR: There is bilateral perihilar consolidation as well as left lung base consolidation. PHYSICAL EXAMINATION: GENERAL: VSS, NAD HEENT: AT, NC, NECK: Supple, CHEST: Rise symmetrical HEART: Pulse RRR ABDOMEN: Benign EXTREMITIES: Warm, dry - SKIN: No rash, no diaphoresis ID ASSESSMENT 28 yo DOWN' SYDNROME F admit with: 1. s/p Septic w/persistent fevers, WBC resolved initially w/ABX - Multifocal PNA * Leukocytosis - WBC rising => Suspect partial IV steroids demargination 2. Hypoxemic Respiratory Failure: imaging findings consistent with a multifocal pneumonia. 3. CHF 4. Obesity w/EILEEN/OHS 5. HTN 6. Diabetes 7. Colitis per CT of the abdomen. (-)MRSA Nares ABX ALLERGIES: KNDA INVASIVES: PIV CURRENT ABX: DAY # # 18=> Diflucan # 11 + Flagyl #6 s/p Vanco IV + Cefepime 2GM (increased dose 02/16 pm) + Levaquin s/p Ceftriaxone 02/12 ID RECOMMENDATIONS/PLAN: 1. Continue current ABX over the weekend 2. Stable post extubation -- generalized weakness noted, not ready for solid food . Consultation Date/Type/Reason Admit Date/Time Feb 12, 2019 at 12:24 Initial Consult Date Requesting Provider: LORNA LYONS MD Date/Time of Note DATE: 03/02/19 TIME: 11:07 Exam/Review of Systems Exam Vitals Vital Signs Date Temp Pulse Resp B/P (MAP) Pulse Ox O2 O2 Flow FiO2 Time Delivery Rate 03/02/19 110 08:00 03/02/19 17 96 21 07:37 03/02/19 102/58 Nasal 2.0 06:00 (73) Cannula 03/02/19 98.3 04:00 Intake and Output 03/01/19 03/01/19 03/02/19 1515:00 23:00 07:00 IntakeIntake Total 100 ml 100 ml 160 ml OutputOutput Total 870 ml 140 ml 235 ml BalanceBalance -770 ml -40 ml -75 ml Results Result Diagram: 03/02/19 0400 03/02/19 0400 Results 24hrs Laboratory Tests Test 03/01/19 13:13 03/01/19 17:18 03/01/19 20:50 03/02/19 00:53 Bedside Glucose 93 93 99 99 Test 03/02/19 04:00 03/02/19 04:42 03/02/19 08:25 White Blood Count 7.9 Red Blood Count 5.30 Hemoglobin 14.5 Hematocrit 46.1 Mean Corpuscular 87.0 Volume Mean Corpuscular 27.4 L Hemoglobin Mean Corpuscular 31.5 L Hemoglobin Concent Red Cell 20.6 H Distribution Width Platelet Count 260 Mean Platelet Volume 10.2 Immature 2.900 H Granulocytes % Neutrophils % 69.3 Lymphocytes % 14.9 L Monocytes % 10.3 Eosinophils % 1.3 Basophils % 1.3 Nucleated Red Blood 0.0 Cells % Immature 0.230 H Granulocytes # Neutrophils # 5.4 Lymphocytes # 1.2 Monocytes # 0.8 Eosinophils # 0.1 Basophils # 0.1 Nucleated Red Blood 0.0 Cells # Sodium Level 139 Potassium Level 3.6 Chloride Level 99 Carbon Dioxide Level 28 Anion Gap 12 Blood Urea Nitrogen 22 H Creatinine 0.77 Est Glomerular > 60 Filtrat Rate mL/min Glucose Level 100 # Calcium Level 8.9 Phosphorus Level 3.0 Magnesium Level 2.2 Bedside Glucose 122 151 Medications Medication Current Medications IV Flush (NS 3 ml) 3 ml PER PROTOCOL IV ; Start 02/12/19 at 15:30 Ondansetron HCl (Zofran Inj) 4 mg Q6H PRN IV NAUSEA/VOMITING; Start 02/12/19 at 15:30 Acetaminophen (Tylenol Tab) 650 mg Q6H PRN PO .PAIN 1-3 OR TEMP Last administered on 02/27/19at 14:40; Admin Dose 650 MG; Start 02/12/19 at 15:30 Docusate Sodium (Colace) 100 mg Q12H PRN PO .CONSTIPATION Last administered on 02/21/19 14:05; Admin Dose 100 MG; Start 02/12/19 at 15:30; Status Hold Enoxaparin Sodium (Lovenox) 40 mg DAILY SC Last administered on 03/02/19 08:37; Admin Dose 40 MG; Start 02/13/19 at 09:00 Propofol 100 ml @ 3.027 mls/ hr Q12H IV Last administered on 02/25/19at 01:55; Admin Dose 6.054 MLS/HR; Start 02/13/19 at 00:30 Fentanyl 100 ml @ 2.5 mls/hr TITRATE IV Last administered on 02/24/19at 19:21; Admin Dose 3 MLS/HR; Start 02/13/19 at 12:00 Levothyroxine Sodium (Synthroid) 88 mcg BEFORE BREAKFAST PO Last administered on 03/01/19 05:10; Admin Dose 88 MCG; Start 02/15/19 at 07:00 Miscellaneous Information 1 ea NOTE XX ; Start 02/14/19 at 10:30 Glucose (Glutose) 15 gm Q15M PRN PO DECREASED GLUCOSE; Start 02/14/19 at 10:30 Glucose (Glutose) 22.5 gm Q15M PRN PO DECREASED GLUCOSE; Start 02/14/19 at 10:30 Dextrose (D50w Syringe) 25 ml Q15M PRN IV DECREASED GLUCOSE; Start 02/14/19 at 10:30 Dextrose (D50w Syringe) 50 ml Q15M PRN IV DECREASED GLUCOSE; Start 02/14/19 at 10:30 Glucagon (Glucagen) 1 mg Q15M PRN IM DECREASED GLUCOSE; Start 02/14/19 at 10:30 Glucose (Glutose) 15 gm Q15M PRN BUCCAL DECREASED GLUCOSE; Start 02/14/19 at 10:30 Insulin Aspart (Novolog Insulin Pen) NOVOLOG *MILD* ALGORI... Q4 SC Last administered on 03/02/19at 08:36; Admin Dose 1 UNIT; Start 02/15/19 at 05:00 Docusate Sodium (Colace Liquid Cup) 100 mg BID NGT Last administered on 02/24/19at 21:15; Admin Dose 100 MG; Start 02/15/19 at 11:00; Status Hold Bisacodyl (Dulcolax Supp) 10 mg DAILY PRN [place] CONSTIPATION Last administered on 02/21/19at 14:06; Admin Dose 10 MG; Start 02/15/19 at 11:00 Famotidine (Pepcid) 20 mg Q12 NGT Last administered on 03/02/19at 08:35; Admin Dose 20 MG; Start 02/18/19 at 21:00 IV Flush (NS 10 ml) 10 ml PRN PRN IV IV PROTOCOL; Start 02/18/19 at 15:30 Fluconazole (Diflucan) 100 mg DAILY PO Last administered on 03/02/19at 08:40; Admin Dose 100 MG; Start 02/19/19 at 12:30 Metronidazole 100 ml @ 100 mls/hr Q8 IVPB Last administered on 03/02/19at 05:27; Admin Dose 100 MLS/HR; Start 02/23/19 at 15:30 Scopolamine (Transderm-Scop) 1 patch Q72H PRN TRANSDERM PRN SECRETIONS Last administered on 02/25/19at 22:40; Admin Dose 1 PATCH; Start 02/25/19 at 22:30 Albuterol/ Ipratropium (Duoneb) 3 ml Q6H RESP THERAPY HHN Last administered on 03/02/19at 07:36; Admin Dose 3 ML; Start 03/01/19 at 14:00 Furosemide (Lasix) 40 mg DAILY IV ; Start 03/03/19 at 09:00 DESHAWN CARSON NP Mar 02, 2019 11:10
[2019-03-02] MEDS: PROPOFOL 100 ML IV SCH (12:30)
--- NOTE | 2019-03-02 13:14 | PN ---
Date/Time of Note Date/Time of Note DATE: 03/02/19 TIME: 12:57 Assessment/Plan VTE Prophylaxis Risk score (from Ns)>0 risk: 7 SCD applied (from Ns): Yes Pharmacological prophylaxis: LMWH Lines/Catheters IV Catheter Type (from Nrsg): PICC Line Central line still needed: Yes Urinary Cath still in place: Yes Reason Cath still needed: urinary retention Assessment/Plan Hospital Course 1. Severe altered mental status likely secondary to metabolic encephalopathy, likely secondary to CO2 narcosis. pt is alert, oriented 2 2. Hypoxic respiratory failure, resolving, still on supplemental oxygen 3. Respiratory alkalosis, no ABG today 4. Morbid obesity. 5. Down syndrome. 6. Hypertension, now normotensive. 7. Diabetes mellitus type II blood sugar controled. 8. History of ventral hernia repair. 9. Leukocytosis secondary to pneumonia, resolved 10. Hypothyroidism 11. KIRIT, more likely due to sepsis, resolved Assessment/Plan Blood culture is negative WBC normalized -BIPAP at night. -Physical therapy chest Xray:interstitial opacities and small bilateral pleural effusions suggesting the presence of CHF. Decreased electrolyte imbalance no fever today -pt is extubated -Patient istolerating full liquid, cough with straw per ursing -c/w low dose lasix -Continue with Flagyl/Diflucan per ID -c/w pulmonary consult. - cw levothyroxine supplement -cardiology input is appreciated - GI Famotidine BID - dvt Prophylaxis Lovenox - Replete K as needed Result Diagram: 03/02/19 0400 03/02/19 0400 Results 24hrs Laboratory Tests Test 03/01/19 13:13 03/01/19 17:18 03/01/19 20:50 03/02/19 00:53 Bedside Glucose 93 93 99 99 Test 03/02/19 04:00 03/02/19 04:42 03/02/19 08:25 03/02/19 12:19 White Blood Count 7.9 Red Blood Count 5.30 Hemoglobin 14.5 Hematocrit 46.1 Mean Corpuscular 87.0 Volume Mean Corpuscular 27.4 L Hemoglobin Mean Corpuscular 31.5 L Hemoglobin Concent Red Cell 20.6 H Distribution Width Platelet Count 260 Mean Platelet Volume 10.2 Immature 2.900 H Granulocytes % Neutrophils % 69.3 Lymphocytes % 14.9 L Monocytes % 10.3 Eosinophils % 1.3 Basophils % 1.3 Nucleated Red Blood 0.0 Cells % Immature 0.230 H Granulocytes # Neutrophils # 5.4 Lymphocytes # 1.2 Monocytes # 0.8 Eosinophils # 0.1 Basophils # 0.1 Nucleated Red Blood 0.0 Cells # Sodium Level 139 Potassium Level 3.6 Chloride Level 99 Carbon Dioxide Level 28 Anion Gap 12 Blood Urea Nitrogen 22 H Creatinine 0.77 Est Glomerular > 60 Filtrat Rate mL/min Glucose Level 100 # Calcium Level 8.9 Phosphorus Level 3.0 Magnesium Level 2.2 Bedside Glucose 122 151 125 Subjective 24 Hr Interval Summary Free Text/Dictation Spoke with help of mother in room, pt answer questions very softly. Uses BiPAP at home sometimes constitutional: No fever, cough or chills. EYE: No eye disease. No visual problems. CARDIOVASCULAR: No chest pain. RESPIRATORY: sometimes cannot breath, GASTROINTESTINAL: No Nausea. No Vomiting. She is hungry Endocrine: No excessive thirst, eat food well MUSCULO-SKELETAL: no pain, unclear about but. NEUROLOGICAL: Alert, oriented in person, date of Exam/Review of Systems Exam Vitals Vital Signs Date Temp Pulse Resp B/P (MAP) Pulse Ox O2 O2 Flow FiO2 Time Delivery Rate 03/02/19 98.3 98 16 115/73 92 12:00 (87) 03/02/19 07:37 03/02/19 Room Air 07:00 03/02/19 2.0 06:00 Intake and Output 03/01/19 03/01/19 03/02/19 1515:00 23:00 07:00 IntakeIntake Total 100 ml 100 ml 160 ml OutputOutput Total 870 ml 140 ml 335 ml BalanceBalance -770 ml -40 ml -175 ml Exam No acute distress, no events overnight. Eyes: anicteric, EOM's intact, no pallor Nose: no rhinorrhea, tachypnea Neck: supple, no thyromegaly, no carotid bruits, short neck Lungs: clear bilaterally, decreased., Patient is on supplemental oxygen via terese al cannula CVS: regular rate and rhythm, no murmurs. tachycardic Abdomen: soft, bowel sounds present, no hepatosplenomegally, no masses, no rebound or guarding, obese. Rectal: differed. External genitalia: no lesions., [place] Extremities: Trace edema, DP palpable Neuro: alert and oriented x 2 Gait: Unable to assess Motor strength: symmetrical 4/4 Sensory exam is normal Deep tendon reflexes: present Skin: no lesions Results Results 24hrs Laboratory Tests Test 03/01/19 13:13 03/01/19 17:18 03/01/19 20:50 03/02/19 00:53 Bedside Glucose 93 93 99 99 Test 03/02/19 04:00 03/02/19 04:42 03/02/19 08:25 03/02/19 12:19 White Blood Count 7.9 Red Blood Count 5.30 Hemoglobin 14.5 Hematocrit 46.1 Mean Corpuscular 87.0 Volume Mean Corpuscular 27.4 L Hemoglobin Mean Corpuscular 31.5 L Hemoglobin Concent Red Cell 20.6 H Distribution Width Platelet Count 260 Mean Platelet Volume 10.2 Immature 2.900 H Granulocytes % Neutrophils % 69.3 Lymphocytes % 14.9 L Monocytes % 10.3 Eosinophils % 1.3 Basophils % 1.3 Nucleated Red Blood 0.0 Cells % Immature 0.230 H Granulocytes # Neutrophils # 5.4 Lymphocytes # 1.2 Monocytes # 0.8 Eosinophils # 0.1 Basophils # 0.1 Nucleated Red Blood 0.0 Cells # Sodium Level 139 Potassium Level 3.6 Chloride Level 99 Carbon Dioxide Level 28 Anion Gap 12 Blood Urea Nitrogen 22 H Creatinine 0.77 Est Glomerular > 60 Filtrat Rate mL/min Glucose Level 100 # Calcium Level 8.9 Phosphorus Level 3.0 Magnesium Level 2.2 Bedside Glucose 122 151 125 Medications Medication Current Medications IV Flush (NS 3 ml) 3 ml PER PROTOCOL IV ; Start 02/12/19 at 15:30 Ondansetron HCl (Zofran Inj) 4 mg Q6H PRN IV NAUSEA/VOMITING; Start 02/12/19 at 15:30 Acetaminophen (Tylenol Tab) 650 mg Q6H PRN PO .PAIN 1-3 OR TEMP Last administered on 02/27/19at 14:40; Admin Dose 650 MG; Start 02/12/19 at 15:30 Docusate Sodium (Colace) 100 mg Q12H PRN PO .CONSTIPATION Last administered on 02/21/19at 14:05; Admin Dose 100 MG; Start 02/12/19 at 15:30; Status Hold Enoxaparin Sodium (Lovenox) 40 mg DAILY SC Last administered on 03/02/19 08:37; Admin Dose 40 MG; Start 02/13/19 at 09:00 Propofol 100 ml @ 3.027 mls/ hr Q12H IV Last administered on 02/25/19at 01:55; Admin Dose 6.054 MLS/HR; Start 02/13/19 at 00:30 Fentanyl 100 ml @ 2.5 mls/hr TITRATE IV Last administered on 02/24/19 19:21; Admin Dose 3 MLS/HR; Start 02/13/19 at 12:00 Levothyroxine Sodium (Synthroid) 88 mcg BEFORE BREAKFAST PO Last administered on 03/01/19 05:10; Admin Dose 88 MCG; Start 02/15/19 at 07:00 Miscellaneous Information 1 ea NOTE XX ; Start 02/14/19 at 10:30 Glucose (Glutose) 15 gm Q15M PRN PO DECREASED GLUCOSE; Start 02/14/19 at 10:30 Glucose (Glutose) 22.5 gm Q15M PRN PO DECREASED GLUCOSE; Start 02/14/19 at 10:30 Dextrose (D50w Syringe) 25 ml Q15M PRN IV DECREASED GLUCOSE; Start 02/14/19 at 10:30 Dextrose (D50w Syringe) 50 ml Q15M PRN IV DECREASED GLUCOSE; Start 02/14/19 at 10:30 Glucagon (Glucagen) 1 mg Q15M PRN IM DECREASED GLUCOSE; Start 02/14/19 at 10:30 Glucose (Glutose) 15 gm Q15M PRN BUCCAL DECREASED GLUCOSE; Start 02/14/19 at 10:30 Insulin Aspart (Novolog Insulin Pen) NOVOLOG *MILD* ALGORI... Q4 SC Last administered on 03/02/19at 08:36; Admin Dose 1 UNIT; Start 02/15/19 at 05:00 Docusate Sodium (Colace Liquid Cup) 100 mg BID NGT Last administered on 02/24/19at 21:15; Admin Dose 100 MG; Start 02/15/19 at 11:00; Status Hold Bisacodyl (Dulcolax Supp) 10 mg DAILY PRN [place] CONSTIPATION Last administered on 02/21/19at 14:06; Admin Dose 10 MG; Start 02/15/19 at 11:00 Famotidine (Pepcid) 20 mg Q12 NGT Last administered on 03/02/19 08:35; Admin Dose 20 MG; Start 02/18/19 at 21:00 IV Flush (NS 10 ml) 10 ml PRN PRN IV IV PROTOCOL; Start 02/18/19 at 15:30 Fluconazole (Diflucan) 100 mg DAILY PO Last administered on 03/02/19 08:40; Admin Dose 100 MG; Start 02/19/19 at 12:30 Metronidazole 100 ml @ 100 mls/hr Q8 IVPB Last administered on 03/02/19at 05:27; Admin Dose 100 MLS/HR; Start 02/23/19 at 15:30 Scopolamine (Transderm-Scop) 1 patch Q72H PRN TRANSDERM PRN SECRETIONS Last administered on 02/25/19at 22:40; Admin Dose 1 PATCH; Start 02/25/19 at 22:30 Albuterol/ Ipratropium (Duoneb) 3 ml Q6H RESP THERAPY HHN Last administered on 03/02/19at 07:36; Admin Dose 3 ML; Start 03/01/19 at 14:00 Furosemide (Lasix) 40 mg DAILY IV ; Start 03/03/19 at 09:00 CARY GIPSON Mar 02, 2019 13:07
[2019-03-03] VITALS (27 sets, daily range): BP systolic 84–125; BP diastolic 38–84; PULSE 75–115; RESP 17–45
[2019-03-03] MEDS: metroNIDAZOLE 500 MG/NS (PMX) 100 ML IVPB SCH ×2 (00:25→05:36)
[2019-03-03] MEDS: INSULIN ASPART [NOVOLOG] 3 ML PEN SC SCH ×6 (00:30→20:37)
[2019-03-03] MEDS: ALBUTEROL/IPRATROPIUM (NEB) 3 ML AMP HHN SCH ×4 (01:42→20:24)
[2019-03-03] MEDS: LEVOTHYROXINE 88 MCG TAB PO SCH (05:36)
[2019-03-03] MEDS: FUROSEMIDE 40 MG INJ IV SCH (08:42)
[2019-03-03] MEDS: FAMOTIDINE 20 MG TAB NGT SCH ×2 (08:42→20:36)
[2019-03-03] MEDS: FLUCONAZOLE 100 MG TAB PO SCH (08:42)
[2019-03-03] MEDS: ENOXAPARIN 40 MG/0.4 ML SYG SC SCH (08:44)
[2019-03-03] MEDS ORDERED: POTASSIUM CHLORIDE (SR) 20 MEQ TAB PO STA (09:03)
--- NOTE | 2019-03-03 09:57 | CONS ---
Consult Date/Type/Reason Admit Date/Time Feb 12, 2019 at 12:24 Initial Consult Date Type of Consult Pulmonary Requesting Provider: LORNA LYONS MD Date/Time of Note DATE: 03/03/19 TIME: 09:57 Subjective Patient remained stable this morning no respiratory distress. No events overnight use of BiPAP for several hours. Objective Vital Signs Date Temp Pulse Resp B/P (MAP) Pulse Ox O2 O2 Flow FiO2 Time Delivery Rate 03/03/19 96 26 98 Nasal 2.0 08:34 Cannula 03/03/19 97.8 104/67 08:00 (79) 03/03/19 30 04:43 Intake and Output 03/02/19 03/02/19 03/03/19 1515:00 23:00 07:00 IntakeIntake Total 240 ml 660 ml 250 ml OutputOutput Total 570 ml 255 ml 205 ml BalanceBalance -330 ml 405 ml 45 ml Exam GENERAL: Well-nourished well-developed lady VITAL SIGNS: per chart NECK: Supple. No JVD or lymphadenopathy. CARDIAC EXAM: S1, S2. No added sounds or murmurs. CHEST: clear bilaterally, No added sounds, rales or wheezes ABDOMEN: Soft, nontender. No guarding or rebound. EXTREMITIES: No cyanosis, clubbing or edema. NEUROLOGIC: Generalized weakness. Vent Setting Ventilator Support Mode: CPAP, PS Fraction of Inspired Oxygen pe: 21 Positive End Expiratory Pressu: 5.0 Results/Medications Result Diagram: 03/03/19 0400 03/03/19 0410 Results 24 hrs Laboratory Tests Test 03/02/19 12:19 03/02/19 17:25 03/02/19 20:24 03/03/19 00:30 Bedside Glucose 125 112 116 123 Test 03/03/19 04:00 03/03/19 04:10 03/03/19 05:39 03/03/19 08:40 White Blood Count 7.1 Red Blood Count 4.90 Hemoglobin 13.4 Hematocrit 43.5 Mean Corpuscular 88.8 Volume Mean Corpuscular 27.3 L Hemoglobin Mean Corpuscular 30.8 L Hemoglobin Concent Red Cell 20.5 H Distribution Width Platelet Count 224 Mean Platelet Volume 10.1 Immature 1.800 H Granulocytes % Neutrophils % 77.9 H Lymphocytes % 9.9 L Monocytes % 7.6 Eosinophils % 1.7 Basophils % 1.1 Nucleated Red Blood 0.0 Cells % Immature 0.130 H Granulocytes # Neutrophils # 5.5 Lymphocytes # 0.7 L Monocytes # 0.5 Eosinophils # 0.1 Basophils # 0.1 Nucleated Red Blood 0.0 Cells # Sodium Level 138 Potassium Level 3.1 L Chloride Level 99 Carbon Dioxide Level 31 Anion Gap 8 Blood Urea Nitrogen 15 Creatinine 0.66 Est Glomerular > 60 Filtrat Rate mL/min Glucose Level 112 Calcium Level 8.9 Phosphorus Level 4.2 Magnesium Level 2.2 Bedside Glucose 119 189 Medications Current Medications IV Flush (NS 3 ml) 3 ml PER PROTOCOL IV ; Start 02/12/19 at 15:30 Ondansetron HCl (Zofran Inj) 4 mg Q6H PRN IV NAUSEA/VOMITING; Start 02/12/19 at 15:30 Acetaminophen (Tylenol Tab) 650 mg Q6H PRN PO .PAIN 1-3 OR TEMP Last administered on 02/27/19at 14:40; Admin Dose 650 MG; Start 02/12/19 at 15:30 Docusate Sodium (Colace) 100 mg Q12H PRN PO .CONSTIPATION Last administered on 02/21/19at 14:05; Admin Dose 100 MG; Start 02/12/19 at 15:30; Status Hold Enoxaparin Sodium (Lovenox) 40 mg DAILY SC Last administered on 03/03/19at 08:44; Admin Dose 40 MG; Start 02/13/19 at 09:00 Levothyroxine Sodium (Synthroid) 88 mcg BEFORE BREAKFAST PO Last administered on 03/03/19at 05:36; Admin Dose 88 MCG; Start 02/15/19 at 07:00 Miscellaneous Information 1 ea NOTE XX ; Start 02/14/19 at 10:30 Glucose (Glutose) 15 gm Q15M PRN PO DECREASED GLUCOSE; Start 02/14/19 at 10:30 Glucose (Glutose) 22.5 gm Q15M PRN PO DECREASED GLUCOSE; Start 02/14/19 at 10:30 Dextrose (D50w Syringe) 25 ml Q15M PRN IV DECREASED GLUCOSE; Start 02/14/19 at 10:30 Dextrose (D50w Syringe) 50 ml Q15M PRN IV DECREASED GLUCOSE; Start 02/14/19 at 10:30 Glucagon (Glucagen) 1 mg Q15M PRN IM DECREASED GLUCOSE; Start 02/14/19 at 10:30 Glucose (Glutose) 15 gm Q15M PRN BUCCAL DECREASED GLUCOSE; Start 02/14/19 at 10:30 Insulin Aspart (Novolog Insulin Pen) NOVOLOG *MILD* ALGORI... Q4 SC Last administered on 03/03/19 08:46; Admin Dose 2 UNIT; Start 02/15/19 at 05:00 Docusate Sodium (Colace Liquid Cup) 100 mg BID NGT Last administered on 21:15; Admin Dose 100 MG; Start 02/15/19 at 11:00; Status Hold Bisacodyl (Dulcolax Supp) 10 mg DAILY PRN [place] CONSTIPATION Last administered on 02/21/19 14:06; Admin Dose 10 MG; Start 02/15/19 at 11:00 Famotidine (Pepcid) 20 mg Q12 NGT Last administered on 03/03/19 08:42; Admin Dose 20 MG; Start 02/18/19 at 21:00 IV Flush (NS 10 ml) 10 ml PRN PRN IV IV PROTOCOL; Start 02/18/19 at 15:30 Fluconazole (Diflucan) 100 mg DAILY PO Last administered on 03/03/19 08:42; Admin Dose 100 MG; Start 02/19/19 at 12:30 Metronidazole 100 ml @ 100 mls/hr Q8 IVPB Last administered on 03/03/19 05:36; Admin Dose 100 MLS/HR; Start 02/23/19 at 15:30 Scopolamine (Transderm-Scop) 1 patch Q72H PRN TRANSDERM PRN SECRETIONS Last administered on 02/25/19 22:40; Admin Dose 1 PATCH; Start 02/25/19 at 22:30 Albuterol/ Ipratropium (Duoneb) 3 ml Q6H RESP THERAPY HHN Last administered on 03/03/19 08:23; Admin Dose 3 ML; Start 03/01/19 at 14:00 Furosemide (Lasix) 40 mg DAILY IV Last administered on 03/03/19 08:42; Admin Dose 40 MG; Start 03/03/19 at 09:00 Assessment/Plan Hospital Course (Demo Recall) IMP: 1. Hypoxemic Respiratory Failure: imaging findings consistent with a multifocal pneumonia. Now extubated on room air. Probable underlying obstructive sleep apnea as noted. 2. Down's Syndrome 3. EILEEN 4. HTN 5. DM RECS: 1. Continue broad-spectrum abx 2. Follow-up cultures increase Lasix to 40 mg daily 3. Nocturnal BiPAP 4. Post extubation speech therapy evaluation strict aspiration precautions 5. DVT GI prophylaxis 6. Physical therapy evaluation. 40 min cc time discussed with mother at bedside. Stable for transfer to telemetry DC planning. MARY ANN MCKEON MD, [facility] Mar 03, 2019 09:57
--- NOTE | 2019-03-03 10:06 | CONS ---
Assessment/Plan Assessment/Plan Hospital Course (Demo Recall) IMPRESSION: 1. Congestive heart failure-diastolic acute on chronic 2. Lower extremity edema, assess for congestive heart failure.-preserved EF 3. Tachycardia, improved, status post intubation, likely due to respiratory distress. 4. Abnormal electrocardiogram with right axis deviation and T-wave flattening. -neg trop x 3 5. Down syndrome. 6. Hypothyroidism. 7. Diabetes mellitus. 8. Obstructive sleep apnea. 9. hypotension-remains borderline but stable and off pressors 10. Resp failure s/p extubation 11.encephalopathy 12. Fevers Recc: -ICU -Continue lasix diuresis as tolerated now decreased to daily and follow volume status closely -Contineu abx's and f/u cx data -Continue bronchodilators -Continue scolpolamine patch -follow resp status closely s/p extubation. Consultation Date/Type/Reason Admit Date/Time Feb 12, 2019 at 12:24 Initial Consult Date 02/12/19 Type of Consult Cardiology Reason for Consultation CHF Requesting Provider: LORNA LYONS MD Date/Time of Note DATE: 03/03/19 TIME: 10:02 Exam/Review of Systems Vital Signs Vitals Vital Signs Date Temp Pulse Resp B/P (MAP) Pulse Ox O2 O2 Flow FiO2 Time Delivery Rate 03/03/19 96 26 98 Nasal 2.0 08:34 Cannula 03/03/19 97.8 104/67 08:00 (79) 03/03/19 30 04:43 Intake and Output 03/02/19 03/02/19 03/03/19 1515:00 23:00 07:00 IntakeIntake Total 240 ml 660 ml 250 ml OutputOutput Total 570 ml 255 ml 205 ml BalanceBalance -330 ml 405 ml 45 ml Exam Exam Review of Systems: CONSTITUTIONAL: No fevers, chills. PULMONARY: No sob CARDIOVASCULAR: No chest pain/palpitations GASTROINTESTINAL: No nausea/vomiting. GENITOURINARY: No hematuria/dysuria. MUSCULOSKELETAL: No myagias/arthalgias. PSYCHIATRIC: The patient denies depression. NEUROLOGIC: No weakness Constitutional: alert Psych: no complaints Head: normocephalic ENMT: mucosa pink and moist Neck: supple, jvd (9 cm water) Respiratory: clear to auscultation Cardiovascular: regular rate and rhythm Gastrointestinal: soft, non-tender Musculoskeletal: muscle tone (normal) Extremities: edema (none) Neurological: other (developmental delay) Labs Result Diagram: 03/03/19 0400 03/03/19 0410 Results 24hrs Laboratory Tests Test 03/02/19 12:19 03/02/19 17:25 03/02/19 20:24 03/03/19 00:30 Bedside Glucose 125 112 116 123 Test 03/03/19 04:00 03/03/19 04:10 03/03/19 05:39 03/03/19 08:40 White Blood Count 7.1 Red Blood Count 4.90 Hemoglobin 13.4 Hematocrit 43.5 Mean Corpuscular 88.8 Volume Mean Corpuscular 27.3 L Hemoglobin Mean Corpuscular 30.8 L Hemoglobin Concent Red Cell 20.5 H Distribution Width Platelet Count 224 Mean Platelet Volume 10.1 Immature 1.800 H Granulocytes % Neutrophils % 77.9 H Lymphocytes % 9.9 L Monocytes % 7.6 Eosinophils % 1.7 Basophils % 1.1 Nucleated Red Blood 0.0 Cells % Immature 0.130 H Granulocytes # Neutrophils # 5.5 Lymphocytes # 0.7 L Monocytes # 0.5 Eosinophils # 0.1 Basophils # 0.1 Nucleated Red Blood 0.0 Cells # Sodium Level 138 Potassium Level 3.1 L Chloride Level 99 Carbon Dioxide Level 31 Anion Gap 8 Blood Urea Nitrogen 15 Creatinine 0.66 Est Glomerular > 60 Filtrat Rate mL/min Glucose Level 112 Calcium Level 8.9 Phosphorus Level 4.2 Magnesium Level 2.2 Bedside Glucose 119 189 Medications Medications Current Medications IV Flush (NS 3 ml) 3 ml PER PROTOCOL IV ; Start 02/12/19 at 15:30 Ondansetron HCl (Zofran Inj) 4 mg Q6H PRN IV NAUSEA/VOMITING; Start 02/12/19 at 15:30 Acetaminophen (Tylenol Tab) 650 mg Q6H PRN PO .PAIN 1-3 OR TEMP Last administered on 02/27/19at 14:40; Admin Dose 650 MG; Start 02/12/19 at 15:30 Docusate Sodium (Colace) 100 mg Q12H PRN PO .CONSTIPATION Last administered on 02/21/19at 14:05; Admin Dose 100 MG; Start 02/12/19 at 15:30; Status Hold Enoxaparin Sodium (Lovenox) 40 mg DAILY SC Last administered on 7/22/19at 08:44; Admin Dose 40 MG; Start 02/13/19 at 09:00 Levothyroxine Sodium (Synthroid) 88 mcg BEFORE BREAKFAST PO Last administered on 03/03/19 05:36; Admin Dose 88 MCG; Start 02/15/19 at 07:00 Miscellaneous Information 1 ea NOTE XX ; Start 02/14/19 at 10:30 Glucose (Glutose) 15 gm Q15M PRN PO DECREASED GLUCOSE; Start 02/14/19 at 10:30 Glucose (Glutose) 22.5 gm Q15M PRN PO DECREASED GLUCOSE; Start 02/14/19 at 10:30 Dextrose (D50w Syringe) 25 ml Q15M PRN IV DECREASED GLUCOSE; Start 02/14/19 at 10:30 Dextrose (D50w Syringe) 50 ml Q15M PRN IV DECREASED GLUCOSE; Start 02/14/19 at 10:30 Glucagon (Glucagen) 1 mg Q15M PRN IM DECREASED GLUCOSE; Start 02/14/19 at 10:30 Glucose (Glutose) 15 gm Q15M PRN BUCCAL DECREASED GLUCOSE; Start 02/14/19 at 10:30 Insulin Aspart (Novolog Insulin Pen) NOVOLOG *MILD* ALGORI... Q4 SC Last administered on 03/03/19 08:46; Admin Dose 2 UNIT; Start 02/15/19 at 05:00 Docusate Sodium (Colace Liquid Cup) 100 mg BID NGT Last administered on 02/24/19 21:15; Admin Dose 100 MG; Start 02/15/19 at 11:00; Status Hold Bisacodyl (Dulcolax Supp) 10 mg DAILY PRN [place] CONSTIPATION Last administered on 02/21/19at 14:06; Admin Dose 10 MG; Start 02/15/19 at 11:00 Famotidine (Pepcid) 20 mg Q12 NGT Last administered on 03/03/19 08:42; Admin Dose 20 MG; Start 02/18/19 at 21:00 IV Flush (NS 10 ml) 10 ml PRN PRN IV IV PROTOCOL; Start 02/18/19 at 15:30 Fluconazole (Diflucan) 100 mg DAILY PO Last administered on 03/03/19 08:42; Admin Dose 100 MG; Start 02/19/19 at 12:30 Metronidazole 100 ml @ 100 mls/hr Q8 IVPB Last administered on 03/03/19 05:36; Admin Dose 100 MLS/HR; Start 02/23/19 at 15:30 Scopolamine (Transderm-Scop) 1 patch Q72H PRN TRANSDERM PRN SECRETIONS Last administered on 02/25/19 22:40; Admin Dose 1 PATCH; Start 02/25/19 at 22:30 Albuterol/ Ipratropium (Duoneb) 3 ml Q6H RESP THERAPY HHN Last administered on 03/03/19 08:23; Admin Dose 3 ML; Start 03/01/19 at 14:00 Furosemide (Lasix) 40 mg DAILY IV Last administered on 03/03/19 08:42; Admin Dose 40 MG; Start 03/03/19 at 09:00 SHARIF TORRES Mar 03, 2019 10:06
--- NOTE | 2019-03-03 10:32 | PN ---
Date/Time of Note Date/Time of Note DATE: 03/03/19 TIME: 10:27 Assessment/Plan VTE Prophylaxis Risk score (from Ns)>0 risk: 3 SCD applied (from [facility]): No SCD contraindicated: low risk/ambulating Pharmacological prophylaxis: NA/contraindicated Pharm contraindication: low risk/ambulating Lines/Catheters IV [facility] Type (from [facility]): PICC Line Central line still needed: Yes Urinary Cath still in place: Yes Reason Cath still needed: urinary retention Assessment/Plan Assessment/Plan Hospital Course 1. Severe altered mental status likely secondary to metabolic encephalopathy, likely secondary to CO2 narcosis. 2. Hypoxic respiratory failure with underlying sleep apnea sp extubation npw 3. Respiratory alkalosis 4. Morbid obesity. 5. Down syndrome. 6. Hypertension, now normotensive. 7. Diabetes mellitus type II blood sugar controled. 8. History of ventral hernia repair. 9. Leukocytosis secondary to pneumonia, resolved 10. Hypothyroidism 11. KIRIT, more likely due to sepsis, resolved Assessment/Plan -BIPAP at night. -Physical therapy for aggresive rehab chest Xray:interstitial opacities and small bilateral pleural effusions suggesting the presence of CHF. -Patient istolerating full liquid, advance diet per speech and swallow -c/w low dose lasix -Continue with Flagyl/Diflucan per ID -c/w pulmonary consult. - cw levothyroxine supplement -cardiology input is appreciated - GI Famotidine BID - dvt Prophylaxis Lovenox Transfer to Tele Result Diagram: 03/03/19 0400 03/03/19 0410 Results 24hrs Laboratory Tests Test 03/02/19 12:19 03/02/19 17:25 03/02/19 20:24 03/03/19 00:30 Bedside Glucose 125 112 116 123 Test 03/03/19 04:00 03/03/19 04:10 03/03/19 05:39 03/03/19 08:40 White Blood Count 7.1 Red Blood Count 4.90 Hemoglobin 13.4 Hematocrit 43.5 Mean Corpuscular 88.8 Volume Mean Corpuscular 27.3 L Hemoglobin Mean Corpuscular 30.8 L Hemoglobin Concent Red Cell 20.5 H Distribution Width Platelet Count 224 Mean Platelet Volume 10.1 Immature 1.800 H Granulocytes % Neutrophils % 77.9 H Lymphocytes % 9.9 L Monocytes % 7.6 Eosinophils % 1.7 Basophils % 1.1 Nucleated Red Blood 0.0 Cells % Immature 0.130 H Granulocytes # Neutrophils # 5.5 Lymphocytes # 0.7 L Monocytes # 0.5 Eosinophils # 0.1 Basophils # 0.1 Nucleated Red Blood 0.0 Cells # Sodium Level 138 Potassium Level 3.1 L Chloride Level 99 Carbon Dioxide Level 31 Anion Gap 8 Blood Urea Nitrogen 15 Creatinine 0.66 Est Glomerular > 60 Filtrat Rate mL/min Glucose Level 112 Calcium Level 8.9 Phosphorus Level 4.2 Magnesium Level 2.2 Bedside Glucose 119 189 Subjective 24 Hr Interval Summary Free Text/Dictation Status post extubation. Patient is on 2 L nasal cannula Exam/Review of Systems Exam Vitals Vital Signs Date Temp Pulse Resp B/P (MAP) Pulse Ox O2 O2 Flow FiO2 Time Delivery Rate 03/03/19 96 26 98 Nasal 2.0 08:34 Cannula 03/03/19 97.8 104/67 08:00 (79) 03/03/19 30 04:43 Intake and Output 03/02/19 03/02/19 03/03/19 1515:00 23:00 07:00 IntakeIntake Total 240 ml 660 ml 250 ml OutputOutput Total 570 ml 255 ml 205 ml BalanceBalance -330 ml 405 ml 45 ml Exam Thick neck. General awake alert oriented Lungs decreased breath sounds bilaterally Heart regular rate rhythm abdomen: obese small extremities, 1+edema Results Results 24hrs Laboratory Tests Test 03/02/19 12:19 03/02/19 17:25 03/02/19 20:24 03/03/19 00:30 Bedside Glucose 125 112 116 123 Test 03/03/19 04:00 03/03/19 04:10 03/03/19 05:39 03/03/19 08:40 White Blood Count 7.1 Red Blood Count 4.90 Hemoglobin 13.4 Hematocrit 43.5 Mean Corpuscular 88.8 Volume Mean Corpuscular 27.3 L Hemoglobin Mean Corpuscular 30.8 L Hemoglobin Concent Red Cell 20.5 H Distribution Width Platelet Count 224 Mean Platelet Volume 10.1 Immature 1.800 H Granulocytes % Neutrophils % 77.9 H Lymphocytes % 9.9 L Monocytes % 7.6 Eosinophils % 1.7 Basophils % 1.1 Nucleated Red Blood 0.0 Cells % Immature 0.130 H Granulocytes # Neutrophils # 5.5 Lymphocytes # 0.7 L Monocytes # 0.5 Eosinophils # 0.1 Basophils # 0.1 Nucleated Red Blood 0.0 Cells # Sodium Level 138 Potassium Level 3.1 L Chloride Level 99 Carbon Dioxide Level 31 Anion Gap 8 Blood Urea Nitrogen 15 Creatinine 0.66 Est Glomerular > 60 Filtrat Rate mL/min Glucose Level 112 Calcium Level 8.9 Phosphorus Level 4.2 Magnesium Level 2.2 Bedside Glucose 119 189 Medications Medication Current Medications IV Flush (NS 3 ml) 3 ml PER PROTOCOL IV ; Start 02/12/19 at 15:30 Ondansetron HCl (Zofran Inj) 4 mg Q6H PRN IV NAUSEA/VOMITING; Start 02/12/19 at 15:30 Acetaminophen (Tylenol Tab) 650 mg Q6H PRN PO .PAIN 1-3 OR TEMP Last administered on 02/27/19at 14:40; Admin Dose 650 MG; Start 02/12/19 at 15:30 Docusate Sodium (Colace) 100 mg Q12H PRN PO .CONSTIPATION Last administered on 02/21/19at 14:05; Admin Dose 100 MG; Start 02/12/19 at 15:30; Status Hold Enoxaparin Sodium (Lovenox) 40 mg DAILY SC Last administered on 03/03/19at 08:44; Admin Dose 40 MG; Start 02/13/19 at 09:00 Levothyroxine Sodium (Synthroid) 88 mcg BEFORE BREAKFAST PO Last administered on 03/03/19at 05:36; Admin Dose 88 MCG; Start 02/15/19 at 07:00 Miscellaneous Information 1 ea NOTE XX ; Start 02/14/19 at 10:30 Glucose (Glutose) 15 gm Q15M PRN PO DECREASED GLUCOSE; Start 02/14/19 at 10:30 Glucose (Glutose) 22.5 gm Q15M PRN PO DECREASED GLUCOSE; Start 02/14/19 at 10:30 Dextrose (D50w Syringe) 25 ml Q15M PRN IV DECREASED GLUCOSE; Start 02/14/19 at 10:30 Dextrose (D50w Syringe) 50 ml Q15M PRN IV DECREASED GLUCOSE; Start 02/14/19 at 10:30 Glucagon (Glucagen) 1 mg Q15M PRN IM DECREASED GLUCOSE; Start 02/14/19 at 10:30 Glucose (Glutose) 15 gm Q15M PRN BUCCAL DECREASED GLUCOSE; Start 02/14/19 at 10:30 Insulin Aspart (Novolog Insulin Pen) NOVOLOG *MILD* ALGORI... Q4 SC Last administered on 03/03/19 08:46; Admin Dose 2 UNIT; Start 02/15/19 at 05:00 Docusate Sodium (Colace Liquid Cup) 100 mg BID NGT Last administered on 02/24/19 21:15; Admin Dose 100 MG; Start 02/15/19 at 11:00; Status Hold Bisacodyl (Dulcolax Supp) 10 mg DAILY PRN [place] CONSTIPATION Last administered on 02/21/19 14:06; Admin Dose 10 MG; Start 02/15/19 at 11:00 Famotidine (Pepcid) 20 mg Q12 NGT Last administered on 03/03/19 08:42; Admin Dose 20 MG; Start 02/18/19 at 21:00 IV Flush (NS 10 ml) 10 ml PRN PRN IV IV PROTOCOL; Start 02/18/19 at 15:30 Fluconazole (Diflucan) 100 mg DAILY PO Last administered on 03/03/19 08:42; Admin Dose 100 MG; Start 02/19/19 at 12:30 Metronidazole 100 ml @ 100 mls/hr Q8 IVPB Last administered on 03/03/19 05:36; Admin Dose 100 MLS/HR; Start 02/23/19 at 15:30 Scopolamine (Transderm-Scop) 1 patch Q72H PRN TRANSDERM PRN SECRETIONS Last administered on 02/25/19 22:40; Admin Dose 1 PATCH; Start 02/25/19 at 22:30 Albuterol/ Ipratropium (Duoneb) 3 ml Q6H RESP THERAPY HHN Last administered on 03/03/19 08:23; Admin Dose 3 ML; Start 03/01/19 at 14:00 Furosemide (Lasix) 40 mg DAILY IV Last administered on 03/03/19 08:42; Admin Dose 40 MG; Start 03/03/19 at 09:00 LORNA LYONS MD Mar 03, 2019 10:32
--- NOTE | 2019-03-03 14:28 | PN ---
DATE: 03/03/2019 SUBJECTIVE: Patient is awake, looks comfortable. Mother at bedside. No fevers overnight. WBC 7.1, platelets 224, neutrophils 77.9, BUN 15, creatinine 0.66. INDWELLINGS: Nelson catheter and PICC line. PHYSICAL EXAMINATION: GENERAL: This is a morbidly obese, well-developed, middle-aged woman who has Down syndrome. HEENT: Head atraumatic, normocephalic. Sclerae anicteric. NECK: Obese. CHEST: Rise symmetrical. Breath sounds diminished to bases. HEART: S1, S2. ABDOMEN: Obese, soft, bowel tones present. EXTREMITIES: Without cyanosis. ASSESSMENT: 1. Status post sepsis with shock. 2. Status post pneumonia with respiratory failure. 3. Morbid obesity. 4. Down syndrome. 5. Hypertension. 6. Diabetes. PLAN: The patient remains stable post-extubation, tolerate clears. Continue present care, aspiratio n precautions. Physical therapy. Discussed with mother at bedside. Discontinue fluconazole. Dictated By: RUDOLPH YOON SPARMAKER for ЕКАТЕРИНА AGUIRRE/MICHAEL Conf#: [id number] DID#: [id number] CC: LORNA LYONS;*EndCC*
[2019-03-04] VITALS (14 sets, daily range): BP systolic 87–128; BP diastolic 45–73; PULSE 83–122; RESP 12–23
[2019-03-04] MEDS: ALBUTEROL/IPRATROPIUM (NEB) 3 ML AMP HHN SCH ×4 (02:38→20:09)
[2019-03-04] MEDS: LEVOTHYROXINE 88 MCG TAB PO SCH (07:07)
[2019-03-04] MEDS: INSULIN ASPART [NOVOLOG] 3 ML PEN SC SCH ×4 (07:49→21:00)
--- NOTE | 2019-03-04 08:24 | CONS ---
Consult Date/Type/Reason Admit Date/Time Feb 12, 2019 at 12:24 Initial Consult Date Type of Consultation: Pulm/CCM Requesting Provider: LORNA LYONS MD Date/Time of Note DATE: 03/04/19 TIME: 08:22 Subjective NO acute events - pt now on tele floor - evaristo better resp effort - eating with assistance - con't to keep euvolemic now. ROS: No fever, no chills, no nausea, no vomiting, no diarrhea/constipation - improved SOB Objective Vitals Vital Signs Date Temp Pulse Resp B/P (MAP) Pulse Ox O2 O2 Flow FiO2 Time Delivery Rate 03/04/19 100 24 Nasal 2.0 07:56 Cannula 03/04/19 102/57 07:31 (72) 03/04/19 98.5 93 07:28 03/04/19 30 05:06 Intake and Output 03/03/19 03/03/19 03/04/19 1515:00 23:00 07:00 IntakeIntake Total 480 ml 60 ml OutputOutput Total 1295 ml 580 ml 305 ml BalanceBalance -815 ml -520 ml -305 ml Exam General: WN/WD/NAD, AOx 1 eyes open Down Sx HEENT: Unicetric/atraumatic/EOMI (follow commands) NECK: JVD elevated, no thyromegaly Lymph: no lymphadenopathy HEART: regular with no S3, II/ systolic murmur at apex, PMI L LUNGS: Coarse sounds ABD: soft, NT, ND, +BS : Intact Neuro: non focal SKIN: chronic changes EXT: trace edema Results/Medications Result Diagram: 03/04/19 0603/04/19 06 Results 24 hrs Laboratory Tests Test 03/03/19 08:40 03/03/19 12:53 03/03/19 16:53 03/03/19 20:37 Bedside Glucose 189 124 113 124 Test 03/04/19 06:01 03/04/19 07:45 White Blood Count 5.7 Red Blood Count 4.81 Hemoglobin 13.3 Hematocrit 43.5 Mean Corpuscular 90.4 Volume Mean Corpuscular 27.7 L Hemoglobin Mean Corpuscular 30.6 L Hemoglobin Concent Red Cell 20.2 H Distribution Width Platelet Count 199 Mean Platelet Volume 10.5 H Immature 3.300 H Granulocytes % Neutrophils % 68.4 Lymphocytes % 16.2 Monocytes % 7.6 Eosinophils % 2.6 Basophils % 1.9 Nucleated Red Blood 0.0 Cells % Immature 0.190 H Granulocytes # Neutrophils # 3.9 Lymphocytes # 0.9 Monocytes # 0.4 Eosinophils # 0.2 Basophils # 0.1 Nucleated Red Blood 0.0 Cells # Sodium Level 136 Potassium Level 3.7 Chloride Level 99 Carbon Dioxide Level 29 Anion Gap 8 Blood Urea Nitrogen 12 Creatinine 0.64 Est Glomerular > 60 Filtrat Rate mL/min Glucose Level 127 Calcium Level 8.9 Bedside Glucose 115 Home Meds Reported Medications [place] Carbonate* ([place]*) 300 Mg Cap, 600 MG PO QHS, CAP 02/12/19 Levothyroxine Sodium* (Levoxyl*) 88 Mcg Tablet, 88 MCG PO BEFORE BREAKFAST, #30 TAB 02/12/19 Loxapine Succinate (Loxapine) 10 Mg Capsule, 10 MG PO QHS, CAP 02/12/19 Cyanocobalamin* (Vitamin B12*) 100 Mcg Tab, 100 MCG PO DAILY, TAB 02/12/19 Loratadine* (Loratadine*) 10 Mg Tablet, 10 MG PO DAILY, #30 TAB 02/12/19 Metformin Hcl* (Metformin Hcl*) 500 Mg Tablet, 500 MG PO WITH BREAKFAST, #30 TAB 02/12/19 Propranolol Hcl* (Propranolol Hcl*) 10 Mg Tablet, 10 MG PO BID, TAB 02/12/19 Ergocalciferol (Vitamin D2) (VITAMIN D2) 50,000 Unit Capsule, 70150 UNIT PO EVERY SUNDAY, CAP 02/12/19 Medications Current Medications IV Flush (NS 3 ml) 3 ml PER PROTOCOL IV ; Start 02/12/19 at 15:30 Ondansetron HCl (Zofran Inj) 4 mg Q6H PRN IV NAUSEA/VOMITING; Start 02/12/19 at 15:30 Acetaminophen (Tylenol Tab) 650 mg Q6H PRN PO .PAIN 1-3 OR TEMP Last administered on 02/27/19at 14:40; Admin Dose 650 MG; Start 02/12/19 at 15:30 Docusate Sodium (Colace) 100 mg Q12H PRN PO .CONSTIPATION Last administered on 02/21/19at 14:05; Admin Dose 100 MG; Start 02/12/19 at 15:30; Status Hold Enoxaparin Sodium (Lovenox) 40 mg DAILY SC Last administered on 03/03/19at 08:44; Admin Dose 40 MG; Start 02/13/19 at 09:00 Levothyroxine Sodium (Synthroid) 88 mcg BEFORE BREAKFAST PO Last administered on 03/04/19at 07:07; Admin Dose 88 MCG; Start 02/15/19 at 07:00 Miscellaneous Information 1 ea NOTE XX ; Start 02/14/19 at 10:30 Glucose (Glutose) 15 gm Q15M PRN PO DECREASED GLUCOSE; Start 02/14/19 at 10:30 Glucose (Glutose) 22.5 gm Q15M PRN PO DECREASED GLUCOSE; Start 02/14/19 at 10:30 Dextrose (D50w Syringe) 25 ml Q15M PRN IV DECREASED GLUCOSE; Start 02/14/19 at 10:30 Dextrose (D50w Syringe) 50 ml Q15M PRN IV DECREASED GLUCOSE; Start 02/14/19 at 10:30 Glucagon (Glucagen) 1 mg Q15M PRN IM DECREASED GLUCOSE; Start 02/14/19 at 10:30 Glucose (Glutose) 15 gm Q15M PRN BUCCAL DECREASED GLUCOSE; Start 02/14/19 at 10:30 Docusate Sodium (Colace Liquid Cup) 100 mg BID NGT Last administered on 02/24/19at 21:15; Admin Dose 100 MG; Start 02/15/19 at 11:00; Status Hold Bisacodyl (Dulcolax Supp) 10 mg DAILY PRN [place] CONSTIPATION Last administered on 02/21/19at 14:06; Admin Dose 10 MG; Start 02/15/19 at 11:00 Famotidine (Pepcid) 20 mg Q12 NGT Last administered on 03/03/19at 20:36; Admin Dose 20 MG; Start 02/18/19 at 21:00 IV Flush (NS 10 ml) 10 ml PRN PRN IV IV PROTOCOL; Start 02/18/19 at 15:30 Scopolamine (Transderm-Scop) 1 patch Q72H PRN TRANSDERM PRN SECRETIONS Last administered on 02/25/19at 22:40; Admin Dose 1 PATCH; Start 02/25/19 at 22:30 Albuterol/ Ipratropium (Duoneb) 3 ml Q6H RESP THERAPY HHN Last administered on 7/23/19at 07:51; Admin Dose 3 ML; Start 03/01/19 at 14:00 Furosemide (Lasix) 40 mg DAILY IV Last administered on 03/03/19at 08:42; Admin Dose 40 MG; Start 03/03/19 at 09:00 Insulin Aspart (Novolog Insulin Pen) NOVOLOG *MILD* ALGORITHM WITH MEALS BEDTIME SC ; Start 03/03/19 at 21:00 Assessment/Plan Hospital Course (Demo Recall) 1. Respiratory failure, assess for congestive heart failure - now intubated, con't supportive Rx. Con't to wean as tolerated. Con't to wean per pulmonary team. Extubated - appears to be saturating well - con't to follow - will spot lasix if needed. Better overall - in good fluid status. 2. Lower extremity edema, assess for congestive heart failure- con't diuresis - increased urine output. On meds now. Rate controlled. Improved. Con't to monitor clinically now, Improved. 3. Tachycardia, improved, status post intubation, likely due to respiratory distress. Sinus tach - better now. Treated. NOw in sinus at 90s - con't resp care., Better overall. Rate controlled. Labile - no fever - will monitor now. Rate controlled. 4. Abnormal electrocardiogram with right axis deviation and T-wave flattening. Assess for acute coronary syndrome. NO CP now. 5. Down syndrome. Supportive Rx as needed. 6. Hypothyroidism - on meds. Treated. On meds. 7. Diabetes mellitus- con't to keep euglycemic. Con't to keep euglycemic. On meds. 8. Obstructive sleep apnea- on vent. 9. CHF - diast HF - acute on chronic, con'y gentle diuresis. Spot Rx as needed. Better. BRIAN PATTERSON MD Mar 04, 2019 08:24
[2019-03-04] MEDS: FAMOTIDINE 20 MG TAB NGT SCH ×2 (09:31→21:21)
[2019-03-04] MEDS: FUROSEMIDE 40 MG INJ IV SCH (09:31)
[2019-03-04] MEDS: ENOXAPARIN 40 MG/0.4 ML SYG SC SCH (09:32)
--- NOTE | 2019-03-04 12:42 | PN ---
Date/Time of Note Date/Time of Note DATE: 03/04/19 TIME: 12:33 Assessment/Plan VTE Prophylaxis Risk score (from Ns)>0 risk: 10 SCD applied (from [facility]): No SCD contraindicated: low risk/ambulating Pharmacological prophylaxis: NA/contraindicated Pharm contraindication: low risk/ambulating Lines/Catheters IV Catheter Type (from [facility]): PICC Line Central line still needed: Yes Urinary Cath still in place: Yes Reason Cath still needed: urinary retention Assessment/Plan Assessment/Plan ospital Course 1. Severe altered mental status likely secondary to metabolic encephalopathy, likely secondary to CO2 narcosis. much imrpoved >resolved 2. Hypoxic respiratory failure with underlying sleep apnea sp extubation now , now on nasal cannula 3. Respiratory alkalosis 4. Morbid obesity. 5. Down syndrome. 6. Hypertension, now normotensive. 7. Diabetes mellitus type II blood sugar controled. 8. History of ventral hernia repair. 9. Leukocytosis secondary to pneumonia, resolved 10. Hypothyroidism 11. KIRIT, more likely due to sepsis, resolved Assessment/Plan -BIPAP at night. -Physical therapy for aggresive rehab chest Xray:interstitial opacities and small bilateral pleural effusions suggesting the presence of CHF. -Patient istolerating full liquid, advance diet per speech and swallow -c/w low dose lasix -abx stopped per ID -c/w pulmonary consult. - cw levothyroxine supplement -cardiology input is appreciated - GI Famotidine BID - dvt Prophylaxis Lovenox PT/OT ? Rehab dc sheree Result Diagram: 03/04/19 0601 03/04/19 0601 Results 24hrs Laboratory Tests Test 03/03/19 12:53 03/03/19 16:53 03/03/19 20:37 03/04/19 06:01 Bedside Glucose 124 113 124 White Blood Count 5.7 Red Blood Count 4.81 Hemoglobin 13.3 Hematocrit 43.5 Mean Corpuscular 90.4 Volume Mean Corpuscular 27.7 L Hemoglobin Mean Corpuscular 30.6 L Hemoglobin Concent Red Cell 20.2 H Distribution Width Platelet Count 199 Mean Platelet Volume 10.5 H Immature 3.300 H Granulocytes % Neutrophils % 68.4 Lymphocytes % 16.2 Monocytes % 7.6 Eosinophils % 2.6 Basophils % 1.9 Nucleated Red Blood 0.0 Cells % Immature 0.190 H Granulocytes # Neutrophils # 3.9 Lymphocytes # 0.9 Monocytes # 0.4 Eosinophils # 0.2 Basophils # 0.1 Nucleated Red Blood 0.0 Cells # Sodium Level 136 Potassium Level 3.7 Chloride Level 99 Carbon Dioxide Level 29 Anion Gap 8 Blood Urea Nitrogen 12 Creatinine 0.64 Est Glomerular > 60 Filtrat Rate mL/min Glucose Level 127 Calcium Level 8.9 Phosphorus Level 4.6 Magnesium Level 2.1 Test 03/04/19 07:45 03/04/19 11:54 Bedside Glucose 115 134 Subjective 24 Hr Interval Summary Free Text/Dictation Doing well. Was eating with family Patient was not participating in physical therapy, pt very weak and decondtiioned Exam/Review of Systems Exam Vitals Vital Signs Date Temp Pulse Resp B/P (MAP) Pulse Ox O2 O2 Flow FiO2 Time Delivery Rate 03/04/19 99.4 122 20 115/67 93 11:20 (83) 03/04/19 Nasal 2.0 08:30 Cannula 03/04/19 30 05:06 Intake and Output 03/03/19 03/03/19 03/04/19 1515:00 23:00 07:00 IntakeIntake Total 480 ml 60 ml OutputOutput Total 1295 ml 580 ml 305 ml BalanceBalance -815 ml -520 ml -305 ml Exam Thick neck. General awake alert oriented Lungs decreased breath sounds bilaterally Heart regular rate rhythm abdomen: obese small extremities, 1+edema Results Results 24hrs Laboratory Tests Test 03/03/19 12:53 03/03/19 16:53 03/03/19 20:37 03/04/19 06:01 Bedside Glucose 124 113 124 White Blood Count 5.7 Red Blood Count 4.81 Hemoglobin 13.3 Hematocrit 43.5 Mean Corpuscular 90.4 Volume Mean Corpuscular 27.7 L Hemoglobin Mean Corpuscular 30.6 L Hemoglobin Concent Red Cell 20.2 H Distribution Width Platelet Count 199 Mean Platelet Volume 10.5 H Immature 3.300 H Granulocytes % Neutrophils % 68.4 Lymphocytes % 16.2 Monocytes % 7.6 Eosinophils % 2.6 Basophils % 1.9 Nucleated Red Blood 0.0 Cells % Immature 0.190 H Granulocytes # Neutrophils # 3.9 Lymphocytes # 0.9 Monocytes # 0.4 Eosinophils # 0.2 Basophils # 0.1 Nucleated Red Blood 0.0 Cells # Sodium Level 136 Potassium Level 3.7 Chloride Level 99 Carbon Dioxide Level 29 Anion Gap 8 Blood Urea Nitrogen 12 Creatinine 0.64 Est Glomerular > 60 Filtrat Rate mL/min Glucose Level 127 Calcium Level 8.9 Phosphorus Level 4.6 Magnesium Level 2.1 Test 03/04/19 07:45 03/04/19 11:54 Bedside Glucose 115 134 Medications Medication Current Medications IV Flush (NS 3 ml) 3 ml PER PROTOCOL IV ; Start 02/12/19 at 15:30 Ondansetron HCl (Zofran Inj) 4 mg Q6H PRN IV NAUSEA/VOMITING; Start 02/12/19 at 15:30 Acetaminophen (Tylenol Tab) 650 mg Q6H PRN PO .PAIN 1-3 OR TEMP Last administered on 02/27/19at 14:40; Admin Dose 650 MG; Start 02/12/19 at 15:30 Docusate Sodium (Colace) 100 mg Q12H PRN PO .CONSTIPATION Last administered on 02/21/19at 14:05; Admin Dose 100 MG; Start 02/12/19 at 15:30; Status Hold Enoxaparin Sodium (Lovenox) 40 mg DAILY SC Last administered on 03/04/19at 09:32; Admin Dose 40 MG; Start 02/13/19 at 09:00 Levothyroxine Sodium (Synthroid) 88 mcg BEFORE BREAKFAST PO Last administered on 03/04/19at 07:07; Admin Dose 88 MCG; Start 02/15/19 at 07:00 Miscellaneous Information 1 ea NOTE XX ; Start 02/14/19 at 10:30 Glucose (Glutose) 15 gm Q15M PRN PO DECREASED GLUCOSE; Start 02/14/19 at 10:30 Glucose (Glutose) 22.5 gm Q15M PRN PO DECREASED GLUCOSE; Start 02/14/19 at 10:30 Dextrose (D50w Syringe) 25 ml Q15M PRN IV DECREASED GLUCOSE; Start 02/14/19 at 10:30 Dextrose (D50w Syringe) 50 ml Q15M PRN IV DECREASED GLUCOSE; Start 02/14/19 at 10:30 Glucagon (Glucagen) 1 mg Q15M PRN IM DECREASED GLUCOSE; Start 02/14/19 at 10:30 Glucose (Glutose) 15 gm Q15M PRN BUCCAL DECREASED GLUCOSE; Start 02/14/19 at 10:30 Docusate Sodium (Colace Liquid Cup) 100 mg BID NGT Last administered on 02/24/19 21:15; Admin Dose 100 MG; Start 02/15/19 at 11:00; Status Hold Bisacodyl (Dulcolax Supp) 10 mg DAILY PRN [place] CONSTIPATION Last administered on 02/21/19 14:06; Admin Dose 10 MG; Start 02/15/19 at 11:00 Famotidine (Pepcid) 20 mg Q12 NGT Last administered on 03/04/19 09:31; Admin Dose 20 MG; Start 02/18/19 at 21:00 IV Flush (NS 10 ml) 10 ml PRN PRN IV IV PROTOCOL; Start 02/18/19 at 15:30 Scopolamine (Transderm-Scop) 1 patch Q72H PRN TRANSDERM PRN SECRETIONS Last administered on 02/25/19 22:40; Admin Dose 1 PATCH; Start 02/25/19 at 22:30 Albuterol/ Ipratropium (Duoneb) 3 ml Q6H RESP THERAPY HHN Last administered on 03/04/19 07:51; Admin Dose 3 ML; Start 03/01/19 at 14:00 Furosemide (Lasix) 40 mg DAILY IV Last administered on 03/04/19 09:31; Admin Dose 40 MG; Start 03/03/19 at 09:00 Insulin Aspart (Novolog Insulin Pen) NOVOLOG *MILD* ALGORITHM WITH MEALS BEDTIME SC ; Start 03/03/19 at 21:00 LORNA LYONS MD Mar 04, 2019 12:42
--- NOTE | 2019-03-04 12:53 | CONS ---
Consult Date/Type/Reason Admit Date/Time Feb 12, 2019 at 12:24 Initial Consult Date Type of Consult Pulmonary Requesting Provider: LORNA LYONS MD Date/Time of Note DATE: 03/04/19 TIME: 12:52 Subjective Patient will BiPAP overnight no respiratory distress Objective Vital Signs Date Temp Pulse Resp B/P (MAP) Pulse Ox O2 O2 Flow FiO2 Time Delivery Rate 03/04/19 99.4 122 20 115/67 93 11:20 (83) 03/04/19 Nasal 2.0 08:30 Cannula 03/04/19 30 05:06 Intake and Output 03/03/19 03/03/19 03/04/19 1515:00 23:00 07:00 IntakeIntake Total 480 ml 60 ml OutputOutput Total 1295 ml 580 ml 305 ml BalanceBalance -815 ml -520 ml -305 ml Exam GENERAL: Well-nourished well-developed lady VITAL SIGNS: per chart NECK: Supple. No JVD or lymphadenopathy. CARDIAC EXAM: S1, S2. No added sounds or murmurs. CHEST: clear bilaterally, No added sounds, rales or wheezes ABDOMEN: Soft, nontender. No guarding or rebound. EXTREMITIES: No cyanosis, clubbing or edema. NEUROLOGIC: Generalized weakness. Vent Setting Ventilator Support Mode: CPAP, PS Fraction of Inspired Oxygen pe: 21 Positive End Expiratory Pressu: 5.0 Results/Medications Result Diagram: 03/04/19 0603/04/19 06 Results 24 hrs Laboratory Tests Test 03/03/19 12:53 03/03/19 16:53 03/03/19 20:37 03/04/19 06:01 Bedside Glucose 124 113 124 White Blood Count 5.7 Red Blood Count 4.81 Hemoglobin 13.3 Hematocrit 43.5 Mean Corpuscular 90.4 Volume Mean Corpuscular 27.7 L Hemoglobin Mean Corpuscular 30.6 L Hemoglobin Concent Red Cell 20.2 H Distribution Width Platelet Count 199 Mean Platelet Volume 10.5 H Immature 3.300 H Granulocytes % Neutrophils % 68.4 Lymphocytes % 16.2 Monocytes % 7.6 Eosinophils % 2.6 Basophils % 1.9 Nucleated Red Blood 0.0 Cells % Immature 0.190 H Granulocytes # Neutrophils # 3.9 Lymphocytes # 0.9 Monocytes # 0.4 Eosinophils # 0.2 Basophils # 0.1 Nucleated Red Blood 0.0 Cells # Sodium Level 136 Potassium Level 3.7 Chloride Level 99 Carbon Dioxide Level 29 Anion Gap 8 Blood Urea Nitrogen 12 Creatinine 0.64 Est Glomerular > 60 Filtrat Rate mL/min Glucose Level 127 Calcium Level 8.9 Phosphorus Level 4.6 Magnesium Level 2.1 Test 03/04/19 07:45 03/04/19 11:54 Bedside Glucose 115 134 Medications Current Medications IV Flush (NS 3 ml) 3 ml PER PROTOCOL IV ; Start 02/12/19 at 15:30 Ondansetron HCl (Zofran Inj) 4 mg Q6H PRN IV NAUSEA/VOMITING; Start 02/12/19 at 15:30 Acetaminophen (Tylenol Tab) 650 mg Q6H PRN PO .PAIN 1-3 OR TEMP Last administered on 02/27/19at 14:40; Admin Dose 650 MG; Start 02/12/19 at 15:30 Docusate Sodium (Colace) 100 mg Q12H PRN PO .CONSTIPATION Last administered on 02/21/19at 14:05; Admin Dose 100 MG; Start 02/12/19 at 15:30; Status Hold Enoxaparin Sodium (Lovenox) 40 mg DAILY SC Last administered on 03/04/19at 09:32; Admin Dose 40 MG; Start 02/13/19 at 09:00 Levothyroxine Sodium (Synthroid) 88 mcg BEFORE BREAKFAST PO Last administered on 03/04/19at 07:07; Admin Dose 88 MCG; Start 02/15/19 at 07:00 Miscellaneous Information 1 ea NOTE XX ; Start 02/14/19 at 10:30 Glucose (Glutose) 15 gm Q15M PRN PO DECREASED GLUCOSE; Start 02/14/19 at 10:30 Glucose (Glutose) 22.5 gm Q15M PRN PO DECREASED GLUCOSE; Start 02/14/19 at 10:30 Dextrose (D50w Syringe) 25 ml Q15M PRN IV DECREASED GLUCOSE; Start 02/14/19 at 10:30 Dextrose (D50w Syringe) 50 ml Q15M PRN IV DECREASED GLUCOSE; Start 02/14/19 at 10:30 Glucagon (Glucagen) 1 mg Q15M PRN IM DECREASED GLUCOSE; Start 02/14/19 at 10:30 Glucose (Glutose) 15 gm Q15M PRN BUCCAL DECREASED GLUCOSE; Start 02/14/19 at 10:30 Docusate Sodium (Colace Liquid Cup) 100 mg BID NGT Last administered on 02/24/19at 21:15; Admin Dose 100 MG; Start 02/15/19 at 11:00; Status Hold Bisacodyl (Dulcolax Supp) 10 mg DAILY PRN [place] CONSTIPATION Last administered on 02/21/19at 14:06; Admin Dose 10 MG; Start 02/15/19 at 11:00 Famotidine (Pepcid) 20 mg Q12 NGT Last administered on 03/04/19at 09:31; Admin Dose 20 MG; Start 02/18/19 at 21:00 IV Flush (NS 10 ml) 10 ml PRN PRN IV IV PROTOCOL; Start 02/18/19 at 15:30 Albuterol/ Ipratropium (Duoneb) 3 ml Q6H RESP THERAPY HHN Last administered on 03/04/19at 07:51; Admin Dose 3 ML; Start 03/01/19 at 14:00 Furosemide (Lasix) 40 mg DAILY IV Last administered on 03/04/19at 09:31; Admin Dose 40 MG; Start 03/03/19 at 09:00 Insulin Aspart (Novolog Insulin Pen) NOVOLOG *MILD* ALGORITHM WITH MEALS BEDTIME SC ; Start 03/03/19 at 21:00 Assessment/Plan Hospital Course (Demo Recall) IMP: 1. Hypoxemic Respiratory Failure: imaging findings consistent with a multifocal pneumonia. Now extubated on room air. Probable underlying obstructive sleep apnea as noted. 2. Down's Syndrome 3. EILEEN 4. HTN 5. DM RECS: 1. Continue broad-spectrum abx 2. Follow-up cultures increase Lasix to 40 mg daily 3. Nocturnal BiPAP 4. Post extubation speech therapy evaluation strict aspiration precautions 5. DVT GI prophylaxis 6. Physical therapy evaluation. Patient refusing physical therapy this morning May need [facility] [place] MARY ANN Mann MD, [facility] Mar 04, 2019 12:53
--- NOTE | 2019-03-04 13:57 | CONS ---
Assessment/Plan Assessment/Plan Hospital Course (Demo Recall) SUBJECTIVE: Patient is alert, looks comfortable. Mother at bedside. No fevers overnight. INDWELLINGS: Nelson catheter and PICC line. PHYSICAL EXAMINATION: GENERAL: This is a morbidly obese, well-developed, middle-aged woman who has Down syndrome. HEENT: Head atraumatic, normocephalic. Sclerae anicteric. NECK: Obese. CHEST: Rise symmetrical. Breath sounds diminished to bases. HEART: S1, S2. ABDOMEN: Obese, soft, bowel tones present. EXTREMITIES: Without cyanosis. ASSESSMENT: 1. Status post sepsis with shock. 2. Status post pneumonia with respiratory failure. 3. Morbid obesity. 4. Down syndrome. 5. Hypertension. 6. Diabetes. PLAN: The patient remains, off abx. Continue present care, aspiration precautions, continue physical therapy. Consultation Date/Type/Reason Admit Date/Time Feb 12, 2019 at 12:24 Initial Consult Date Type of Consult id Requesting Provider: LORNA LYONS MD Date/Time of Note DATE: 03/04/19 TIME: 13:56 Exam/Review of Systems Exam Vitals Vital Signs Date Temp Pulse Resp B/P (MAP) Pulse Ox O2 O2 Flow FiO2 Time Delivery Rate 03/04/19 Nasal 2.0 12:57 Cannula 03/04/19 102 24 88 21 12:55 03/04/19 99.4 115/67 11:20 (83) Intake and Output 03/03/19 03/03/19 03/04/19 1515:00 23:00 07:00 IntakeIntake Total 480 ml 60 ml OutputOutput Total 1295 ml 580 ml 305 ml BalanceBalance -815 ml -520 ml -305 ml Results Result Diagram: 03/04/19 0601 03/04/19 06 Results 24hrs Laboratory Tests Test 03/03/19 16:53 03/03/19 20:37 03/04/19 06:01 03/04/19 07:45 Bedside Glucose 113 124 115 White Blood Count 5.7 Red Blood Count 4.81 Hemoglobin 13.3 Hematocrit 43.5 Mean Corpuscular 90.4 Volume Mean Corpuscular 27.7 L Hemoglobin Mean Corpuscular 30.6 L Hemoglobin Concent Red Cell 20.2 H Distribution Width Platelet Count 199 Mean Platelet Volume 10.5 H Immature 3.300 H Granulocytes % Neutrophils % 68.4 Lymphocytes % 16.2 Monocytes % 7.6 Eosinophils % 2.6 Basophils % 1.9 Nucleated Red Blood 0.0 Cells % Immature 0.190 H Granulocytes # Neutrophils # 3.9 Lymphocytes # 0.9 Monocytes # 0.4 Eosinophils # 0.2 Basophils # 0.1 Nucleated Red Blood 0.0 Cells # Sodium Level 136 Potassium Level 3.7 Chloride Level 99 Carbon Dioxide Level 29 Anion Gap 8 Blood Urea Nitrogen 12 Creatinine 0.64 Est Glomerular > 60 Filtrat Rate mL/min Glucose Level 127 Calcium Level 8.9 Phosphorus Level 4.6 Magnesium Level 2.1 Test 03/04/19 11:54 Bedside Glucose 134 Medications Medication Current Medications IV Flush (NS 3 ml) 3 ml PER PROTOCOL IV ; Start 02/12/19 at 15:30 Ondansetron HCl (Zofran Inj) 4 mg Q6H PRN IV NAUSEA/VOMITING; Start 02/12/19 at 15:30 Acetaminophen (Tylenol Tab) 650 mg Q6H PRN PO .PAIN 1-3 OR TEMP Last administered on 02/27/19at 14:40; Admin Dose 650 MG; Start 02/12/19 at 15:30 Docusate Sodium (Colace) 100 mg Q12H PRN PO .CONSTIPATION Last administered on 02/21/19at 14:05; Admin Dose 100 MG; Start 02/12/19 at 15:30; Status Hold Enoxaparin Sodium (Lovenox) 40 mg DAILY SC Last administered on 03/04/19at 09:32; Admin Dose 40 MG; Start 02/13/19 at 09:00 Levothyroxine Sodium (Synthroid) 88 mcg BEFORE BREAKFAST PO Last administered on 03/04/19at 07:07; Admin Dose 88 MCG; Start 02/15/19 at 07:00 Miscellaneous Information 1 ea NOTE XX ; Start 02/14/19 at 10:30 Glucose (Glutose) 15 gm Q15M PRN PO DECREASED GLUCOSE; Start 02/14/19 at 10:30 Glucose (Glutose) 22.5 gm Q15M PRN PO DECREASED GLUCOSE; Start 02/14/19 at 10:30 Dextrose (D50w Syringe) 25 ml Q15M PRN IV DECREASED GLUCOSE; Start 02/14/19 at 10:30 Dextrose (D50w Syringe) 50 ml Q15M PRN IV DECREASED GLUCOSE; Start 02/14/19 at 10:30 Glucagon (Glucagen) 1 mg Q15M PRN IM DECREASED GLUCOSE; Start 02/14/19 at 10:30 Glucose (Glutose) 15 gm Q15M PRN BUCCAL DECREASED GLUCOSE; Start 02/14/19 at 10:30 Docusate Sodium (Colace Liquid Cup) 100 mg BID NGT Last administered on 02/24/19at 21:15; Admin Dose 100 MG; Start 02/15/19 at 11:00; Status Hold Bisacodyl (Dulcolax Supp) 10 mg DAILY PRN [place] CONSTIPATION Last administered on 02/21/19at 14:06; Admin Dose 10 MG; Start 02/15/19 at 11:00 Famotidine (Pepcid) 20 mg Q12 NGT Last administered on 03/04/19at 09:31; Admin Dose 20 MG; Start 02/18/19 at 21:00 IV Flush (NS 10 ml) 10 ml PRN PRN IV IV PROTOCOL; Start 02/18/19 at 15:30 Albuterol/ Ipratropium (Duoneb) 3 ml Q6H RESP THERAPY HHN Last administered on 03/04/19at 12:54; Admin Dose 3 ML; Start 03/01/19 at 14:00 Furosemide (Lasix) 40 mg DAILY IV Last administered on 03/04/19at 09:31; Admin Dose 40 MG; Start 03/03/19 at 09:00 Insulin Aspart (Novolog Insulin Pen) NOVOLOG *MILD* ALGORITHM WITH MEALS BEDTIME SC ; Start 03/03/19 at 21:00 RUDOLPH YOON NP Mar 04, 2019 13:57
[2019-03-04] MEDS: ACETAMINOPHEN 325 MG TAB PO PRN (18:11)
[2019-03-05] VITALS (7 sets, daily range): BP systolic 106–124; BP diastolic 54–61; PULSE 82–110; RESP 18
[2019-03-05] MEDS: ALBUTEROL/IPRATROPIUM (NEB) 3 ML AMP HHN SCH ×4 (02:50→20:54)
[2019-03-05] MEDS: LEVOTHYROXINE 88 MCG TAB PO SCH (07:44)
[2019-03-05] MEDS: INSULIN ASPART [NOVOLOG] 3 ML PEN SC SCH ×4 (08:00→20:42)
--- NOTE | 2019-03-05 10:23 | CONS ---
Assessment/Plan Assessment/Plan Hospital Course (Demo Recall) SUBJECTIVE: No acute events, looks comfortable. No fevers overnight. INDWELLINGS: Nelson catheter and PICC line. PHYSICAL EXAMINATION: GENERAL: This is a morbidly obese, well-developed, middle-aged woman who has Down syndrome. HEENT: Head atraumatic, normocephalic. Sclerae anicteric. NECK: Obese. CHEST: Rise symmetrical. Breath sounds diminished to bases. HEART: S1, S2. ABDOMEN: Obese, soft, bowel tones present. EXTREMITIES: Without cyanosis. ASSESSMENT: 1. Status post sepsis with shock. 2. Status post pneumonia with respiratory failure. 3. Morbid obesity. 4. Down syndrome. 5. Hypertension. 6. Diabetes. PLAN: The patient remains, off abx. Continue present care, aspiration precautions Consultation Date/Type/Reason Admit Date/Time Feb 12, 2019 at 12:24 Initial Consult Date Type of Consult id Requesting Provider: LORNA LYOSN MD Date/Time of Note DATE: 03/05/19 TIME: 10:22 Exam/Review of Systems Exam Vitals Vital Signs Date Temp Pulse Resp B/P (MAP) Pulse Ox O2 O2 Flow FiO2 Time Delivery Rate 03/05/19 98 2.0 09:17 03/05/19 100 24 Nasal 09:15 Cannula 03/05/19 98.2 119/59 07:03 (79) 03/05/19 30 02:50 Intake and Output 03/04/19 03/04/19 03/05/19 1515:00 23:00 07:00 IntakeIntake Total 400 ml 200 ml 50 ml OutputOutput Total 1750 ml BalanceBalance 400 ml -1550 ml 50 ml Results Result Diagram: 03/04/19 0601 03/04/19 0601 Results 24hrs Laboratory Tests Test 03/04/19 11:54 03/04/19 17:16 03/04/19 20:30 03/05/19 07:57 Bedside Glucose 134 117 135 114 Medications Medication Current Medications IV Flush (NS 3 ml) 3 ml PER PROTOCOL IV ; Start 02/12/19 at 15:30 Ondansetron HCl (Zofran Inj) 4 mg Q6H PRN IV NAUSEA/VOMITING; Start 02/12/19 at 15:30 Acetaminophen (Tylenol Tab) 650 mg Q6H PRN PO .PAIN 1-3 OR TEMP Last administered on 03/04/19 18:11; Admin Dose 650 MG; Start 02/12/19 at 15:30 Docusate Sodium (Colace) 100 mg Q12H PRN PO .CONSTIPATION Last administered on 02/21/19 14:05; Admin Dose 100 MG; Start 02/12/19 at 15:30; Status Hold Enoxaparin Sodium (Lovenox) 40 mg DAILY SC Last administered on 03/04/19 09:32; Admin Dose 40 MG; Start 02/13/19 at 09:00 Levothyroxine Sodium (Synthroid) 88 mcg BEFORE BREAKFAST PO Last administered on 03/05/19 07:44; Admin Dose 88 MCG; Start 02/15/19 at 07:00 Miscellaneous Information 1 ea NOTE XX ; Start 02/14/19 at 10:30 Glucose (Glutose) 15 gm Q15M PRN PO DECREASED GLUCOSE; Start 02/14/19 at 10:30 Glucose (Glutose) 22.5 gm Q15M PRN PO DECREASED GLUCOSE; Start 02/14/19 at 10:30 Dextrose (D50w Syringe) 25 ml Q15M PRN IV DECREASED GLUCOSE; Start 02/14/19 at 10:30 Dextrose (D50w Syringe) 50 ml Q15M PRN IV DECREASED GLUCOSE; Start 02/14/19 at 10:30 Glucagon (Glucagen) 1 mg Q15M PRN IM DECREASED GLUCOSE; Start 02/14/19 at 10:30 Glucose (Glutose) 15 gm Q15M PRN BUCCAL DECREASED GLUCOSE; Start 02/14/19 at 10:30 Docusate Sodium (Colace Liquid Cup) 100 mg BID NGT Last administered on 02/24/19at 21:15; Admin Dose 100 MG; Start 02/15/19 at 11:00; Status Hold Bisacodyl (Dulcolax Supp) 10 mg DAILY PRN [place] CONSTIPATION Last administered on 02/21/19 14:06; Admin Dose 10 MG; Start 02/15/19 at 11:00 Famotidine (Pepcid) 20 mg Q12 NGT Last administered on 03/04/19at 21:21; Admin Dose 20 MG; Start 02/18/19 at 21:00 IV Flush (NS 10 ml) 10 ml PRN PRN IV IV PROTOCOL; Start 02/18/19 at 15:30 Albuterol/ Ipratropium (Duoneb) 3 ml Q6H RESP THERAPY HHN Last administered on 03/05/19at 09:15; Admin Dose 3 ML; Start 03/01/19 at 14:00 Furosemide (Lasix) 40 mg DAILY IV Last administered on 03/04/19at 09:31; Admin Dose 40 MG; Start 03/03/19 at 09:00 Insulin Aspart (Novolog Insulin Pen) NOVOLOG *MILD* ALGORITHM WITH MEALS BEDTIME SC ; Start 03/03/19 at 21:00 RUDLOPH YOON NP Mar 05, 2019 10:23
--- NOTE | 2019-03-05 10:27 | CONS ---
Consult Date/Type/Reason Admit Date/Time Feb 12, 2019 at 12:24 Initial Consult Date Type of Consult Pulmonary Requesting Provider: LORNA LYONS MD Date/Time of Note DATE: 03/05/19 TIME: 10:26 Subjective Still noncompliant with physical therapy.Remains stable uses nocturnal BiPAP. Objective Vital Signs Date Temp Pulse Resp B/P (MAP) Pulse Ox O2 O2 Flow FiO2 Time Delivery Rate 03/05/19 98 2.0 09:17 03/05/19 100 24 Nasal 09:15 Cannula 03/05/19 98.2 119/59 07:03 (79) 03/05/19 30 02:50 Intake and Output 03/04/19 03/04/19 03/05/19 1515:00 23:00 07:00 IntakeIntake Total 400 ml 200 ml 50 ml OutputOutput Total 1750 ml BalanceBalance 400 ml -1550 ml 50 ml Exam GENERAL: Well-nourished well-developed lady VITAL SIGNS: per chart NECK: Supple. No JVD or lymphadenopathy. CARDIAC EXAM: S1, S2. No added sounds or murmurs. CHEST: clear bilaterally, No added sounds, rales or wheezes ABDOMEN: Soft, nontender. No guarding or rebound. EXTREMITIES: No cyanosis, clubbing or edema. NEUROLOGIC: Generalized weakness. Vent Setting Ventilator Support Mode: CPAP, PS Fraction of Inspired Oxygen pe: 21 Positive End Expiratory Pressu: 5.0 Results/Medications Result Diagram: 03/04/19 0601 03/04/19 0601 Results 24 hrs Laboratory Tests Test 03/04/19 11:54 03/04/19 17:16 03/04/19 20:30 03/05/19 07:57 Bedside Glucose 134 117 135 114 Medications Current Medications IV Flush (NS 3 ml) 3 ml PER PROTOCOL IV ; Start 02/12/19 at 15:30 Ondansetron HCl (Zofran Inj) 4 mg Q6H PRN IV NAUSEA/VOMITING; Start 02/12/19 at 15:30 Acetaminophen (Tylenol Tab) 650 mg Q6H PRN PO .PAIN 1-3 OR TEMP Last administered on 03/04/19at 18:11; Admin Dose 650 MG; Start 02/12/19 at 15:30 Docusate Sodium (Colace) 100 mg Q12H PRN PO .CONSTIPATION Last administered on 02/21/19 14:05; Admin Dose 100 MG; Start 02/12/19 at 15:30; Status Hold Enoxaparin Sodium (Lovenox) 40 mg DAILY SC Last administered on 03/04/19 09:32; Admin Dose 40 MG; Start 02/13/19 at 09:00 Levothyroxine Sodium (Synthroid) 88 mcg BEFORE BREAKFAST PO Last administered on 03/05/19 07:44; Admin Dose 88 MCG; Start 02/15/19 at 07:00 Miscellaneous Information 1 ea NOTE XX ; Start 02/14/19 at 10:30 Glucose (Glutose) 15 gm Q15M PRN PO DECREASED GLUCOSE; Start 02/14/19 at 10:30 Glucose (Glutose) 22.5 gm Q15M PRN PO DECREASED GLUCOSE; Start 02/14/19 at 10:30 Dextrose (D50w Syringe) 25 ml Q15M PRN IV DECREASED GLUCOSE; Start 02/14/19 at 10:30 Dextrose (D50w Syringe) 50 ml Q15M PRN IV DECREASED GLUCOSE; Start 02/14/19 at 10:30 Glucagon (Glucagen) 1 mg Q15M PRN IM DECREASED GLUCOSE; Start 02/14/19 at 10:30 Glucose (Glutose) 15 gm Q15M PRN BUCCAL DECREASED GLUCOSE; Start 02/14/19 at 10:30 Docusate Sodium (Colace Liquid Cup) 100 mg BID NGT Last administered on 02/24/19at 21:15; Admin Dose 100 MG; Start 02/15/19 at 11:00; Status Hold Bisacodyl (Dulcolax Supp) 10 mg DAILY PRN [place] CONSTIPATION Last administered on 02/21/19at 14:06; Admin Dose 10 MG; Start 02/15/19 at 11:00 Famotidine (Pepcid) 20 mg Q12 NGT Last administered on 03/04/19 21:21; Admin Dose 20 MG; Start 02/18/19 at 21:00 IV Flush (NS 10 ml) 10 ml PRN PRN IV IV PROTOCOL; Start 02/18/19 at 15:30 Albuterol/ Ipratropium (Duoneb) 3 ml Q6H RESP THERAPY HHN Last administered on 03/05/19 09:15; Admin Dose 3 ML; Start 03/01/19 at 14:00 Furosemide (Lasix) 40 mg DAILY IV Last administered on 03/04/19at 09:31; Admin Dose 40 MG; Start 03/03/19 at 09:00 Insulin Aspart (Novolog Insulin Pen) NOVOLOG *MILD* ALGORITHM WITH MEALS BEDTIME SC ; Start 03/03/19 at 21:00 Assessment/Plan Hospital Course (Demo Recall) IMP: 1. Hypoxemic Respiratory Failure: imaging findings consistent with a multifocal pneumonia. Now extubated on room air. Probable underlying obstructive sleep apnea as noted. 2. Down's Syndrome 3. EILEEN 4. HTN 5. DM RECS: 1. Continue broad-spectrum abx 2. Continue diuretics as tolerated 3. Nocturnal BiPAP 4. Post extubation speech therapy evaluation strict aspiration precautions 5. DVT GI prophylaxis 6. Physical therapy evaluation. Patient refusing physical therapy this morning correction facility placement. MARY ANN MCKEON MD, [facility] Mar 05, 2019 10:26
[2019-03-05] MEDS: FAMOTIDINE 20 MG TAB NGT SCH ×2 (11:10→20:42)
[2019-03-05] MEDS: FUROSEMIDE 40 MG INJ IV SCH (11:10)
[2019-03-05] MEDS: ENOXAPARIN 40 MG/0.4 ML SYG SC SCH (11:12)
--- NOTE | 2019-03-05 12:08 | CONS ---
Assessment/Plan Assessment/Plan Hospital Course (Demo Recall) IMPRESSION: 1. Congestive heart failure-diastolic acute on chronic 2. Lower extremity edema, assess for congestive heart failure.-preserved EF 3. Tachycardia, improved, status post intubation, likely due to respiratory distress. 4. Abnormal electrocardiogram with right axis deviation and T-wave flattening. -neg trop x 3 5. Down syndrome. 6. Hypothyroidism. 7. Diabetes mellitus. 8. Obstructive sleep apnea. 9. hypotension-improved overall and stable 10. Resp failure s/p extubation 11.encephalopathy 12. Fevers 14. ? vertigo Recc: -Now on tele -Continue lasix diuresis as tolerated now decreased to daily and follow volume status closely -Contineu abx's and f/u cx data -Continue bronchodilators -follow resp status closely s/p extubation. Consultation Date/Type/Reason Admit Date/Time Feb 12, 2019 at 12:24 Initial Consult Date 02/12/19 Type of Consult Cardiology Reason for Consultation CHF Requesting Provider: LORNA LYONS MD Date/Time of Note DATE: 03/05/19 TIME: 12:05 Exam/Review of Systems Vital Signs Vitals Vital Signs Date Temp Pulse Resp B/P (MAP) Pulse Ox O2 O2 Flow FiO2 Time Delivery Rate 03/05/19 98.0 110 18 124/61 97 11:28 (82) 03/05/19 2.0 09:17 03/05/19 Nasal 09:15 Cannula 03/05/19 30 02:50 Intake and Output 03/04/19 03/04/19 03/05/19 1515:00 23:00 07:00 IntakeIntake Total 400 ml 200 ml 50 ml OutputOutput Total 1750 ml BalanceBalance 400 ml -1550 ml 50 ml Exam Exam Review of Systems: CONSTITUTIONAL: No fevers, chills. PULMONARY: No sob CARDIOVASCULAR: No chest pain/palpitations GASTROINTESTINAL: No nausea/vomiting. GENITOURINARY: No hematuria/dysuria. MUSCULOSKELETAL: No myagias/arthalgias. PSYCHIATRIC: The patient denies depression. NEUROLOGIC: No weakness Constitutional: alert Psych: no complaints Head: normocephalic ENMT: mucosa pink and moist Neck: supple, jvd (9 cm water) Respiratory: diminished breath sounds (at bases/B) Cardiovascular: regular rate and rhythm Gastrointestinal: soft, non-tender Musculoskeletal: muscle tone (normal) Extremities: edema (none) Neurological: other (no focal deficits) Labs Result Diagram: 03/04/19 0603/04/19 06 Results 24hrs Laboratory Tests Test 03/04/19 17:16 03/04/19 20:30 03/05/19 07:57 Bedside Glucose 117 135 114 Medications Medications Current Medications IV Flush (NS 3 ml) 3 ml PER PROTOCOL IV ; Start 02/12/19 at 15:30 Ondansetron HCl (Zofran Inj) 4 mg Q6H PRN IV NAUSEA/VOMITING; Start 02/12/19 at 15:30 Acetaminophen (Tylenol Tab) 650 mg Q6H PRN PO .PAIN 1-3 OR TEMP Last administered on 03/04/19at 18:11; Admin Dose 650 MG; Start 02/12/19 at 15:30 Docusate Sodium (Colace) 100 mg Q12H PRN PO .CONSTIPATION Last administered on 02/21/19at 14:05; Admin Dose 100 MG; Start 02/12/19 at 15:30; Status Hold Enoxaparin Sodium (Lovenox) 40 mg DAILY SC Last administered on 03/05/19at 11:12; Admin Dose 40 MG; Start 02/13/19 at 09:00 Levothyroxine Sodium (Synthroid) 88 mcg BEFORE BREAKFAST PO Last administered on 03/05/19at 07:44; Admin Dose 88 MCG; Start 02/15/19 at 07:00 Miscellaneous Information 1 ea NOTE XX ; Start 02/14/19 at 10:30 Glucose (Glutose) 15 gm Q15M PRN PO DECREASED GLUCOSE; Start 02/14/19 at 10:30 Glucose (Glutose) 22.5 gm Q15M PRN PO DECREASED GLUCOSE; Start 02/14/19 at 10:30 Dextrose (D50w Syringe) 25 ml Q15M PRN IV DECREASED GLUCOSE; Start 02/14/19 at 10:30 Dextrose (D50w Syringe) 50 ml Q15M PRN IV DECREASED GLUCOSE; Start 02/14/19 at 10:30 Glucagon (Glucagen) 1 mg Q15M PRN IM DECREASED GLUCOSE; Start 02/14/19 at 10:30 Glucose (Glutose) 15 gm Q15M PRN BUCCAL DECREASED GLUCOSE; Start 02/14/19 at 10: 30 Docusate Sodium (Colace Liquid Cup) 100 mg BID NGT Last administered on 02/24/19 21:15; Admin Dose 100 MG; Start 02/15/19 at 11:00; Status Hold Bisacodyl (Dulcolax Supp) 10 mg DAILY PRN [place] CONSTIPATION Last administered on 02/21/19 14:06; Admin Dose 10 MG; Start 02/15/19 at 11:00 Famotidine (Pepcid) 20 mg Q12 NGT Last administered on 03/05/19 11:10; Admin Dose 20 MG; Start 02/18/19 at 21:00 IV Flush (NS 10 ml) 10 ml PRN PRN IV IV PROTOCOL; Start 02/18/19 at 15:30 Albuterol/ Ipratropium (Duoneb) 3 ml Q6H RESP THERAPY HHN Last administered on 03/05/19 09:15; Admin Dose 3 ML; Start 03/01/19 at 14:00 Furosemide (Lasix) 40 mg DAILY IV Last administered on 03/05/19 11:10; Admin Dose 40 MG; Start 03/03/19 at 09:00 Insulin Aspart (Novolog Insulin Pen) NOVOLOG *MILD* ALGORITHM WITH MEALS BEDTIME SC ; Start 03/03/19 at 21:00 SHARIF TORRES Mar 05, 2019 12:08
[2019-03-05] MEDS ORDERED: MECLIZINE 25 MG TAB PO PRN ×2 (12:30→15:30)
--- NOTE | 2019-03-05 14:50 | PN ---
Date/Time of Note Date/Time of Note DATE: 03/05/19 TIME: 14:47 Assessment/Plan VTE Prophylaxis Risk score (from Ns)>0 risk: 4 SCD applied (from [facility] [place] No SCD contraindicated: low risk/ambulating Pharmacological prophylaxis: NA/contraindicated Pharm contraindication: low risk/ambulating Lines/Catheters IV Catheter Type (from [facility] PICC Line Central line still needed: Yes Urinary Cath still in place: No Reason Cath still needed: urinary retention Assessment/Plan Assessment/Plan .1 Severe altered mental status likely secondary to metabolic encephalopathy, likely secondary to CO2 narcosis. much imrpoved >resolved 2. Hypoxic respiratory failure with underlying sleep apnea sp extubation now , now on nasal cannula 3. Respiratory alkalosis 4. Morbid obesity. 5. Down syndrome. 6. Hypertension, now normotensive. 7. Diabetes mellitus type II blood sugar controled. 8. History of ventral hernia repair. 9. Leukocytosis secondary to pneumonia, resolved 10. Hypothyroidism 11. KIRIT, more likely due to sepsis, resolved Assessment/Plan -BIPAP at night. -Physical therapy for aggresive rehab, the patient had been refusing it chest Xray:interstitial opacities and small bilateral pleural effusions suggesting the presence of CHF. -advance diet per speech and swallow -c/w low dose lasix -abx stopped per ID -c/w pulmonary consult. - cw levothyroxine supplement -cardiology input is appreciated - GI Famotidine BID - dvt Prophylaxis Lovenox Disposal planning physical therapy participation patient will likely need a rehab, spoke to the classification case manager DC planning likely tomorrow Result Diagram: 03/04/19 0601 03/04/19 0601 Results 24hrs Laboratory Tests Test 03/04/19 17:16 03/04/19 20:30 03/05/19 07:57 03/05/19 12:45 Bedside Glucose 117 135 114 124 Subjective 24 Hr Interval Summary Free Text/Dictation Refused therapy today, the mother said probably patient not motivated Exam/Review of Systems Exam Vitals Vital Signs Date Temp Pulse Resp B/P (MAP) Pulse Ox O2 O2 Flow FiO2 Time Delivery Rate 03/05/19 94 24 Nasal 2.0 13:01 Cannula 03/05/19 98.0 124/61 97 11:28 (82) 03/05/19 30 02:50 Intake and Output 7/03/04/19 03/05/19 1515:00 23:00 07:00 IntakeIntake Total 400 ml 200 ml 50 ml OutputOutput Total 1750 ml BalanceBalance 400 ml -1550 ml 50 ml Exam hick neck. General awake alert oriented Lungs decreased breath sounds bilaterally Heart regular rate rhythm abdomen: obese small extremities, 1+edema Results Results 24hrs Laboratory Tests Test 03/04/19 17:16 03/04/19 20:30 03/05/19 07:57 03/05/19 12:45 Bedside Glucose 117 135 114 124 Medications Medication Current Medications IV Flush (NS 3 ml) 3 ml PER PROTOCOL IV ; Start 02/12/19 at 15:30 Ondansetron HCl (Zofran Inj) 4 mg Q6H PRN IV NAUSEA/VOMITING; Start 02/12/19 at 15:30 Acetaminophen (Tylenol Tab) 650 mg Q6H PRN PO .PAIN 1-3 OR TEMP Last administered on 03/04/19at 18:11; Admin Dose 650 MG; Start 02/12/19 at 15:30 Docusate Sodium (Colace) 100 mg Q12H PRN PO .CONSTIPATION Last administered on 02/21/19at 14:05; Admin Dose 100 MG; Start 02/12/19 at 15:30; Status Hold Enoxaparin Sodium (Lovenox) 40 mg DAILY SC Last administered on 03/05/19at 11:12; Admin Dose 40 MG; Start 02/13/19 at 09:00 Levothyroxine Sodium (Synthroid) 88 mcg BEFORE BREAKFAST PO Last administered on 03/05/19at 07:44; Admin Dose 88 MCG; Start 02/15/19 at 07:00 Miscellaneous Information 1 ea NOTE XX ; Start 02/14/19 at 10:30 Glucose (Glutose) 15 gm Q15M PRN PO DECREASED GLUCOSE; Start 02/14/19 at 10:30 Glucose (Glutose) 22.5 gm Q15M PRN PO DECREASED GLUCOSE; Start 02/14/19 at 10:30 Dextrose (D50w Syringe) 25 ml Q15M PRN IV DECREASED GLUCOSE; Start 02/14/19 at 1 0:30 Dextrose (D50w Syringe) 50 ml Q15M PRN IV DECREASED GLUCOSE; Start 02/14/19 at 10:30 Glucagon (Glucagen) 1 mg Q15M PRN IM DECREASED GLUCOSE; Start 02/14/19 at 10:30 Glucose (Glutose) 15 gm Q15M PRN BUCCAL DECREASED GLUCOSE; Start 02/14/19 at 10:30 Docusate Sodium (Colace Liquid Cup) 100 mg BID NGT Last administered on 02/24/19at 21:15; Admin Dose 100 MG; Start 02/15/19 at 11:00; Status Hold Bisacodyl (Dulcolax Supp) 10 mg DAILY PRN [place] CONSTIPATION Last administered on 02/21/19at 14:06; Admin Dose 10 MG; Start 02/15/19 at 11:00 Famotidine (Pepcid) 20 mg Q12 NGT Last administered on 03/05/19at 11:10; Admin Dose 20 MG; Start 02/18/19 at 21:00 IV Flush (NS 10 ml) 10 ml PRN PRN IV IV PROTOCOL; Start 02/18/19 at 15:30 Albuterol/ Ipratropium (Duoneb) 3 ml Q6H RESP THERAPY HHN Last administered on 03/05/19at 13:00; Admin Dose 3 ML; Start 03/01/19 at 14:00 Furosemide (Lasix) 40 mg DAILY IV Last administered on 03/05/19at 11:10; Admin Dose 40 MG; Start 03/03/19 at 09:00 Insulin Aspart (Novolog Insulin Pen) NOVOLOG *MILD* ALGORITHM WITH MEALS BEDTIME SC ; Start 03/03/19 at 21:00 Meclizine HCl (Antivert) 25 mg BID PRN PO vertigo/dizziness; Start 03/05/19 at 12:30 LORNA LYONS MD Mar 05, 2019 14:50
[2019-03-06] VITALS (9 sets, daily range): BP systolic 91–128; BP diastolic 50–69; PULSE 96–115; RESP 18–22
[2019-03-06] MEDS: ALBUTEROL/IPRATROPIUM (NEB) 3 ML AMP HHN SCH ×4 (00:48→19:35)
[2019-03-06] MEDS: LEVOTHYROXINE 88 MCG TAB PO SCH (05:05)
[2019-03-06] MEDS: INSULIN ASPART [NOVOLOG] 3 ML PEN SC SCH ×4 (08:00→21:00)
--- NOTE | 2019-03-06 09:25 | CONS ---
Consult Date/Type/Reason Admit Date/Time Feb 12, 2019 at 12:24 Initial Consult Date Type of Consult Pulmonary Requesting Provider: LORNA LYONS MD Date/Time of Note DATE: 03/06/19 TIME: 09:24 Subjective Patient appears comfortable this morning no new events sitting up eating. Objective Vital Signs Date Temp Pulse Resp B/P (MAP) Pulse Ox O2 O2 Flow FiO2 Time Delivery Rate 03/06/19 98.0 98 22 110/58 96 Nasal 2.0 08:16 (75) Cannula 03/06/19 30 03:01 Exam GENERAL: Well-nourished well-developed lady VITAL SIGNS: per chart NECK: Supple. No JVD or lymphadenopathy. CARDIAC EXAM: S1, S2. No added sounds or murmurs. CHEST: clear bilaterally, No added sounds, rales or wheezes ABDOMEN: Soft, nontender. No guarding or rebound. EXTREMITIES: No cyanosis, clubbing or edema. NEUROLOGIC: Generalized weakness. Vent Setting Ventilator Support Mode: CPAP, PS Fraction of Inspired Oxygen pe: 21 Positive End Expiratory Pressu: 5.0 Results/Medications Result Diagram: 03/04/1960003/04/19600 Results 24 hrs Laboratory Tests Test 03/05/19 12:45 03/05/19 17:12 03/05/19 20:38 03/06/19 08:12 Bedside Glucose 124 116 104 123 Medications Current Medications IV Flush (NS 3 ml) 3 ml PER PROTOCOL IV ; Start 02/12/19 at 15:30 Ondansetron HCl (Zofran Inj) 4 mg Q6H PRN IV NAUSEA/VOMITING; Start 02/12/19 at 15:30 Acetaminophen (Tylenol Tab) 650 mg Q6H PRN PO .PAIN 1-3 OR TEMP Last administered on 03/04/19at 18:11; Admin Dose 650 MG; Start 02/12/19 at 15:30 Docusate Sodium (Colace) 100 mg Q12H PRN PO .CONSTIPATION Last administered on 02/21/19at 14:05; Admin Dose 100 MG; Start 02/12/19 at 15:30; Status Hold Enoxaparin Sodium (Lovenox) 40 mg DAILY SC Last administered on 03/05/19at 11:12; Admin Dose 40 MG; Start 02/13/19 at 09:00 Levothyroxine Sodium (Synthroid) 88 mcg BEFORE BREAKFAST PO Last administered on 03/06/19at 05:05; Admin Dose 88 MCG; Start 02/15/19 at 07:00 Miscellaneous Information 1 ea NOTE XX ; Start 02/14/19 at 10:30 Glucose (Glutose) 15 gm Q15M PRN PO DECREASED GLUCOSE; Start 02/14/19 at 10:30 Glucose (Glutose) 22.5 gm Q15M PRN PO DECREASED GLUCOSE; Start 02/14/19 at 10:30 Dextrose (D50w Syringe) 25 ml Q15M PRN IV DECREASED GLUCOSE; Start 02/14/19 at 10:30 Dextrose (D50w Syringe) 50 ml Q15M PRN IV DECREASED GLUCOSE; Start 02/14/19 at 10:30 Glucagon (Glucagen) 1 mg Q15M PRN IM DECREASED GLUCOSE; Start 02/14/19 at 10:30 Glucose (Glutose) 15 gm Q15M PRN BUCCAL DECREASED GLUCOSE; Start 02/14/19 at 10:30 Docusate Sodium (Colace Liquid Cup) 100 mg BID NGT Last administered on 02/24/19at 21:15; Admin Dose 100 MG; Start 02/15/19 at 11:00; Status Hold Bisacodyl (Dulcolax Supp) 10 mg DAILY PRN [place] CONSTIPATION Last administered on 02/21/19at 14:06; Admin Dose 10 MG; Start 02/15/19 at 11:00 Famotidine (Pepcid) 20 mg Q12 NGT Last administered on 03/05/19at 20:42; Admin Dose 20 MG; Start 02/18/19 at 21:00 IV Flush (NS 10 ml) 10 ml PRN PRN IV IV PROTOCOL; Start 02/18/19 at 15:30 Albuterol/ Ipratropium (Duoneb) 3 ml Q6H RESP THERAPY HHN Last administered on 03/06/19at 08:04; Admin Dose 3 ML; Start 03/01/19 at 14:00 Furosemide (Lasix) 40 mg DAILY IV Last administered on 03/05/19at 11:10; Admin Dose 40 MG; Start 03/03/19 at 09:00 Insulin Aspart (Novolog Insulin Pen) NOVOLOG *MILD* ALGORITHM WITH MEALS BEDTIME SC ; Start 03/03/19 at 21:00 Meclizine HCl (Antivert) 12.5 mg BID PRN PO vertigo/dizziness; Start 03/05/19 at 15:30 Assessment/Plan Hospital Course (Demo Recall) IMP: 1. Hypoxemic Respiratory Failure: imaging findings consistent with a multifocal pneumonia. Now extubated on room air. Probable underlying obstructive sleep apnea as noted. 2. Down's Syndrome 3. EILEEN 4. HTN 5. DM RECS: 1. Continue broad-spectrum abx 2. Continue diuretics as tolerated 3. Nocturnal BiPAP 4. Post extubation speech therapy evaluation strict aspiration precautions 5. DVT GI prophylaxis 6. Physical therapy evaluation. Patient refusing physical therapy this morning care home facility placement. MARY ANN MCKEON MD, [facility] Mar 06, 2019 09:25
[2019-03-06] MEDS: FUROSEMIDE 40 MG INJ IV SCH (10:01)
[2019-03-06] MEDS: FAMOTIDINE 20 MG TAB NGT SCH ×2 (10:01→20:58)
[2019-03-06] MEDS: ENOXAPARIN 40 MG/0.4 ML SYG SC SCH (10:09)
--- NOTE | 2019-03-06 11:03 | CONS ---
Assessment/Plan Assessment/Plan Hospital Course (Demo Recall) SUBJECTIVE: No acute events, looks comfortable. No fevers overnight. INDWELLINGS: Nelson catheter and PICC line. PHYSICAL EXAMINATION: GENERAL: This is a morbidly obese, well-developed, middle-aged woman who has Down syndrome. HEENT: Head atraumatic, normocephalic. Sclerae anicteric. NECK: Obese. CHEST: Rise symmetrical. Breath sounds diminished to bases. HEART: S1, S2. ABDOMEN: Obese, soft, bowel tones present. EXTREMITIES: Without cyanosis. ASSESSMENT: 1. Status post sepsis with shock. 2. Status post pneumonia with respiratory failure. 3. Morbid obesity. 4. Down syndrome. 5. Hypertension. 6. Diabetes. PLAN: The patient remains off abx, cxr noted. Continue aspiration precautions Consultation Date/Type/Reason Admit Date/Time Feb 12, 2019 at 12:24 Initial Consult Date Type of Consult id Requesting Provider: LORNA LYONS MD Date/Time of Note DATE: 03/06/19 TIME: 11:02 Exam/Review of Systems Exam Vitals Vital Signs Date Temp Pulse Resp B/P (MAP) Pulse Ox O2 O2 Flow FiO2 Time Delivery Rate 03/06/19 Nasal 3.0 10:21 Cannula 03/06/19 98.0 98 22 110/58 96 08:16 (75) 03/06/19 30 03:01 Results Result Diagram: 03/04/19 0601 03/04/19 0601 Results 24hrs Laboratory Tests Test 03/05/19 12:45 03/05/19 17:12 03/05/19 20:38 03/06/19 08:12 Bedside Glucose 124 116 104 123 Medications Medication Current Medications IV Flush (NS 3 ml) 3 ml PER PROTOCOL IV ; Start 02/12/19 at 15:30 Ondansetron HCl (Zofran Inj) 4 mg Q6H PRN IV NAUSEA/VOMITING; Start 02/12/19 at 15:30 Acetaminophen (Tylenol Tab) 650 mg Q6H PRN PO .PAIN 1-3 OR TEMP Last administered on 03/04/19at 18:11; Admin Dose 650 MG; Start 02/12/19 at 15:30 Docusate Sodium (Colace) 100 mg Q12H PRN PO .CONSTIPATION Last administered on 02/21/19at 14:05; Admin Dose 100 MG; Start 02/12/19 at 15:30; Status Hold Enoxaparin Sodium (Lovenox) 40 mg DAILY SC Last administered on 03/06/19at 10:09; Admin Dose 40 MG; Start 02/13/19 at 09:00 Levothyroxine Sodium (Synthroid) 88 mcg BEFORE BREAKFAST PO Last administered on 03/06/19at 05:05; Admin Dose 88 MCG; Start 02/15/19 at 07:00 Miscellaneous Information 1 ea NOTE XX ; Start 02/14/19 at 10:30 Glucose (Glutose) 15 gm Q15M PRN PO DECREASED GLUCOSE; Start 02/14/19 at 10:30 Glucose (Glutose) 22.5 gm Q15M PRN PO DECREASED GLUCOSE; Start 02/14/19 at 10:30 Dextrose (D50w Syringe) 25 ml Q15M PRN IV DECREASED GLUCOSE; Start 02/14/19 at 10:30 Dextrose (D50w Syringe) 50 ml Q15M PRN IV DECREASED GLUCOSE; Start 02/14/19 at 10:30 Glucagon (Glucagen) 1 mg Q15M PRN IM DECREASED GLUCOSE; Start 02/14/19 at 10:30 Glucose (Glutose) 15 gm Q15M PRN BUCCAL DECREASED GLUCOSE; Start 02/14/19 at 10:30 Docusate Sodium (Colace Liquid Cup) 100 mg BID NGT Last administered on 02/24/19at 21:15; Admin Dose 100 MG; Start 02/15/19 at 11:00; Status Hold Bisacodyl (Dulcolax Supp) 10 mg DAILY PRN [place] CONSTIPATION Last administered on 02/21/19at 14:06; Admin Dose 10 MG; Start 02/15/19 at 11:00 Famotidine (Pepcid) 20 mg Q12 NGT Last administered on 03/06/19at 10:01; Admin Dose 20 MG; Start 02/18/19 at 21:00 IV Flush (NS 10 ml) 10 ml PRN PRN IV IV PROTOCOL; Start 02/18/19 at 15:30 Albuterol/ Ipratropium (Duoneb) 3 ml Q6H RESP THERAPY HHN Last administered on 03/06/19at 08:04; Admin Dose 3 ML; Start 03/01/19 at 14:00 Furosemide (Lasix) 40 mg DAILY IV Last administered on 03/06/19at 10:01; Admin Dose 40 MG; Start 03/03/19 at 09:00 Insulin Aspart (Novolog Insulin Pen) NOVOLOG *MILD* ALGORITHM WITH MEALS BEDTIME SC ; Start 03/03/19 at 21:00 Meclizine HCl (Antivert) 12.5 mg BID PRN PO vertigo/dizziness; Start 03/05/19 at 15:30 RUDOLPH YOON NP Mar 06, 2019 11:03
--- NOTE | 2019-03-06 11:37 | CONS ---
Assessment/Plan Assessment/Plan Hospital Course (Demo Recall) IMPRESSION: 1. Congestive heart failure-diastolic acute on chronic 2. Lower extremity edema, assess for congestive heart failure.-preserved EF 3. Tachycardia, improved, status post intubation, likely due to respiratory distress. 4. Abnormal electrocardiogram with right axis deviation and T-wave flattening. -neg trop x 3 5. Down syndrome. 6. Hypothyroidism. 7. Diabetes mellitus. 8. Obstructive sleep apnea. 9. hypotension-improved overall and stable 10. Resp failure s/p extubation 11.encephalopathy 12. Fevers 14. ? vertigo Recc: -Now on tele -Continue lasix diuresis and follow volume status closely and will give extra dose today to assure good volume status -Contineu abx's and f/u cx data -Continue bronchodilators -follow resp status closely s/p extubation. -PRN meclizine Consultation Date/Type/Reason Admit Date/Time Feb 12, 2019 at 12:24 Initial Consult Date 02/12/19 Type of Consult Cardiology Reason for Consultation CHF Requesting Provider: LORNA LYONS MD Date/Time of Note DATE: 03/06/19 TIME: 11:35 Exam/Review of Systems Vital Signs Vitals Vital Signs Date Temp Pulse Resp B/P (MAP) Pulse Ox O2 O2 Flow FiO2 Time Delivery Rate 03/06/19 Nasal 3.0 10:21 Cannula 03/06/19 98.0 98 22 110/58 96 08:16 (75) 03/06/19 30 03:01 Exam Exam Review of Systems: CONSTITUTIONAL: No fevers, chills. PULMONARY: No sob CARDIOVASCULAR: No chest pain/palpitations GASTROINTESTINAL: No nausea/vomiting. GENITOURINARY: No hematuria/dysuria. MUSCULOSKELETAL: No myagias/arthalgias. PSYCHIATRIC: The patient denies depression. NEUROLOGIC: No weakness Constitutional: alert Psych: no complaints Head: normocephalic Neck: supple, jvd (9 cm water) Respiratory: diminished breath sounds (at bases/B) Cardiovascular: regular rate and rhythm Gastrointestinal: soft, non-tender Musculoskeletal: muscle tone (normal) Extremities: edema (none) Neurological: other (No focal deficits) Labs Result Diagram: 03/04/19 0601 03/04/19 0601 Results 24hrs Laboratory Tests Test 03/05/19 12:45 03/05/19 17:12 03/05/19 20:38 03/06/19 08:12 Bedside Glucose 124 116 104 123 Medications Medications Current Medications IV Flush (NS 3 ml) 3 ml PER PROTOCOL IV ; Start 02/12/19 at 15:30 Ondansetron HCl (Zofran Inj) 4 mg Q6H PRN IV NAUSEA/VOMITING; Start 02/12/19 at 15:30 Acetaminophen (Tylenol Tab) 650 mg Q6H PRN PO .PAIN 1-3 OR TEMP Last administered on 03/04/19at 18:11; Admin Dose 650 MG; Start 02/12/19 at 15:30 Docusate Sodium (Colace) 100 mg Q12H PRN PO .CONSTIPATION Last administered on 02/21/19at 14:05; Admin Dose 100 MG; Start 02/12/19 at 15:30; Status Hold Enoxaparin Sodium (Lovenox) 40 mg DAILY SC Last administered on 03/06/19at 10:09; Admin Dose 40 MG; Start 02/13/19 at 09:00 Levothyroxine Sodium (Synthroid) 88 mcg BEFORE BREAKFAST PO Last administered on 03/06/19at 05:05; Admin Dose 88 MCG; Start 02/15/19 at 07:00 Miscellaneous Information 1 ea NOTE XX ; Start 02/14/19 at 10:30 Glucose (Glutose) 15 gm Q15M PRN PO DECREASED GLUCOSE; Start 02/14/19 at 10:30 Glucose (Glutose) 22.5 gm Q15M PRN PO DECREASED GLUCOSE; Start 02/14/19 at 10:30 Dextrose (D50w Syringe) 25 ml Q15M PRN IV DECREASED GLUCOSE; Start 02/14/19 at 10:30 Dextrose (D50w Syringe) 50 ml Q15M PRN IV DECREASED GLUCOSE; Start 02/14/19 at 10:30 Glucagon (Glucagen) 1 mg Q15M PRN IM DECREASED GLUCOSE; Start 02/14/19 at 10:30 Glucose (Glutose) 15 gm Q15M PRN BUCCAL DECREASED GLUCOSE; Start 02/14/19 at 10:30 Docusate Sodium (Colace Liquid Cup) 100 mg BID NGT Last administered on 02/24/19at 21:15; Admin Dose 100 MG; Start 02/15/19 at 11:00; Status Hold Bisacodyl (Dulcolax Supp) 10 mg DAILY PRN [place] CONSTIPATION Last administered on 02/21/19at 14:06; Admin Dose 10 MG; Start 02/15/19 at 11:00 Famotidine (Pepcid) 20 mg Q12 NGT Last administered on 03/06/19at 10:01; Admin Dose 20 MG; Start 02/18/19 at 21:00 IV Flush (NS 10 ml) 10 ml PRN PRN IV IV PROTOCOL; Start 02/18/19 at 15:30 Albuterol/ Ipratropium (Duoneb) 3 ml Q6H RESP THERAPY HHN Last administered on 03/06/19 08:04; Admin Dose 3 ML; Start 03/01/19 at 14:00 Furosemide (Lasix) 40 mg DAILY IV Last administered on 03/06/19at 10:01; Admin Dose 40 MG; Start 03/03/19 at 09:00 Insulin Aspart (Novolog Insulin Pen) NOVOLOG *MILD* ALGORITHM WITH MEALS BEDTIM E SC ; Start 03/03/19 at 21:00 Meclizine HCl (Antivert) 12.5 mg BID PRN PO vertigo/dizziness; Start 03/05/19 at 15:30 SHARIF TORRES Mar 06, 2019 11:37
[2019-03-06] MEDS ORDERED: FUROSEMIDE 40 MG INJ IV ONE (15:00)
--- NOTE | 2019-03-06 15:17 | PN ---
Date/Time of Note Date/Time of Note DATE: 03/06/19 TIME: 15:15 Assessment/Plan VTE Prophylaxis Risk score (from Nsg)>0 risk: 7 SCD applied (from Ns): No SCD contraindicated: low risk/ambulating Pharmacological prophylaxis: NA/contraindicated Pharm contraindication: low risk/ambulating Lines/Catheters IV Catheter Type (from Nrs): PICC Line Central line still needed: Yes Urinary Cath still in place: No Assessment/Plan Assessment/Plan sessment/Plan .1 Severe altered mental status likely secondary to metabolic encephalopathy, likely secondary to CO2 narcosis. much imrpoved >resolved 2. Hypoxic respiratory failure with underlying sleep apnea sp extubation now , now on nasal cannula 3. Respiratory alkalosis 4. Morbid obesity. 5. Down syndrome. 6. Hypertension, now normotensive. 7. Diabetes mellitus type II blood sugar controled. 8. History of ventral hernia repair. 9. Leukocytosis secondary to pneumonia, resolved 10. Hypothyroidism 11. KIRIT, more likely due to sepsis, resolved Assessment/Plan -BIPAP at night. -Physical therapy for aggresive rehab, the patient had been refusing it, today willing chest Xray:interstitial opacities and small bilateral pleural effusions suggest ing the presence of CHF.s/p extra lasix today -diet per speech and swallow -c/w low dose lasix -abx stopped per ID -c/w pulmonary consult. - cw levothyroxine supplement -cardiology input is appreciated - GI Famotidine BID - dvt Prophylaxis Lovenox Disposal planning physical therapy participation patient will likely need a rehab, spoke to the renal case manager DC planning , still havent found place med surg Result Diagram: 03/04/19 0601 03/04/19 0601 Results 24hrs Laboratory Tests Test 03/05/19 17:12 03/05/19 20:38 03/06/19 08:12 03/06/19 12:19 Bedside Glucose 116 104 123 116 Subjective 24 Hr Interval Summary Free Text/Dictation Patient participated little bit with PT today No shortness of breath Exam/Review of Systems Exam Vitals Vital Signs Date Temp Pulse Resp B/P (MAP) Pulse Ox O2 O2 Flow FiO2 Time Delivery Rate 03/06/19 101 22 93 Nasal 2.0 14:10 Cannula 03/06/19 98.6 122/57 12:23 (78) 03/06/19 30 03:01 Exam ick neck. General awake alert oriented Lungs decreased breath sounds bilaterally Heart regular rate rhythm abdomen: obese small extremities, 1+edema Results Results 24hrs Laboratory Tests Test 03/05/19 17:12 03/05/19 20:38 03/06/19 08:12 03/06/19 12:19 Bedside Glucose 116 104 123 116 Medications Medication Current Medications IV Flush (NS 3 ml) 3 ml PER PROTOCOL IV ; Start 02/12/19 at 15:30 Ondansetron HCl (Zofran Inj) 4 mg Q6H PRN IV NAUSEA/VOMITING; Start 02/12/19 at 15:30 Acetaminophen (Tylenol Tab) 650 mg Q6H PRN PO .PAIN 1-3 OR TEMP Last administered on 03/04/19at 18:11; Admin Dose 650 MG; Start 02/12/19 at 15:30 Docusate Sodium (Colace) 100 mg Q12H PRN PO .CONSTIPATION Last administered on 02/21/19at 14:05; Admin Dose 100 MG; Start 02/12/19 at 15:30; Status Hold Enoxaparin Sodium (Lovenox) 40 mg DAILY SC Last administered on 03/06/19at 10:09; Admin Dose 40 MG; Start 02/13/19 at 09:00 Levothyroxine Sodium (Synthroid) 88 mcg BEFORE BREAKFAST PO Last administered on 03/06/19at 05:05; Admin Dose 88 MCG; Start 02/15/19 at 07:00 Miscellaneous Information 1 ea NOTE XX ; Start 02/14/19 at 10:30 Glucose (Glutose) 15 gm Q15M PRN PO DECREASED GLUCOSE; Start 02/14/19 at 10:30 Glucose (Glutose) 22.5 gm Q15M PRN PO DECREASED GLUCOSE; Start 02/14/19 at 10:30 Dextrose (D50w Syringe) 25 ml Q15M PRN IV DECREASED GLUCOSE; Start 02/14/19 at 10:30 Dextrose (D50w Syringe) 50 ml Q15M PRN IV DECREASED GLUCOSE; Start 02/14/19 at 10:30 Glucagon (Glucagen) 1 mg Q15M PRN IM DECREASED GLUCOSE; Start 02/14/19 at 10:30 Glucose (Glutose) 15 gm Q15M PRN BUCCAL DECREASED GLUCOSE; Start 02/14/19 at 10:30 Docusate Sodium (Colace Liquid Cup) 100 mg BID NGT Last administered on 02/24/19 21:15; Admin Dose 100 MG; Start 02/15/19 at 11:00; Status Hold Bisacodyl (Dulcolax Supp) 10 mg DAILY PRN [place] CONSTIPATION Last administered on 02/21/19 14:06; Admin Dose 10 MG; Start 02/15/19 at 11:00 Famotidine (Pepcid) 20 mg Q12 NGT Last administered on 03/06/19 10:01; Admin Dose 20 MG; Start 02/18/19 at 21:00 IV Flush (NS 10 ml) 10 ml PRN PRN IV IV PROTOCOL; Start 02/18/19 at 15:30 Albuterol/ Ipratropium (Duoneb) 3 ml Q6H RESP THERAPY HHN Last administered on 03/06/19 14:07; Admin Dose 3 ML; Start 03/01/19 at 14:00 Furosemide (Lasix) 40 mg DAILY IV Last administered on 03/06/19at 10:01; Admin Dose 40 MG; Start 03/03/19 at 09:00 Insulin Aspart (Novolog Insulin Pen) NOVOLOG *MILD* ALGORITHM WITH MEALS BEDTIME SC ; Start 03/03/19 at 21:00 Meclizine HCl (Antivert) 12.5 mg BID PRN PO vertigo/dizziness; Start 03/05/19 at 15:30 LORNA LYONS MD Mar 06, 2019 15:17
[2019-03-07 02:00] VITALS: BP 108/57; PULSE 102; RESP 20
[2019-03-07 02:13] VITALS: PULSE 107
[2019-03-07] MEDS: ALBUTEROL/IPRATROPIUM (NEB) 3 ML AMP HHN SCH ×4 (02:13→19:46)
[2019-03-07] MEDS: LEVOTHYROXINE 88 MCG TAB PO SCH (06:03)
[2019-03-07 08:17] VITALS: BP 125/62; PULSE 103; RESP 12
[2019-03-07] MEDS: FAMOTIDINE 20 MG TAB NGT SCH ×2 (09:07→21:02)
[2019-03-07] MEDS: FUROSEMIDE 40 MG INJ IV SCH (09:08)
[2019-03-07] MEDS: ENOXAPARIN 40 MG/0.4 ML SYG SC SCH (09:09)
[2019-03-07] MEDS: INSULIN ASPART [NOVOLOG] 3 ML PEN SC SCH ×4 (09:09→21:00)
--- NOTE | 2019-03-07 11:19 | CONS ---
Assessment/Plan Assessment/Plan Hospital Course (Demo Recall) SUBJECTIVE: No acute events, looks comfortable. INDWELLINGS: PICC line. PHYSICAL EXAMINATION: GENERAL: This is a morbidly obese, well-developed, middle-aged woman who has Down syndrome. HEENT: Head atraumatic, normocephalic. Sclerae anicteric. NECK: Obese. CHEST: Rise symmetrical. Breath sounds diminished to bases. HEART: S1, S2. ABDOMEN: Obese, soft, bowel tones present. EXTREMITIES: Without cyanosis. ASSESSMENT: 1. Status post sepsis with shock. 2. Status post pneumonia with respiratory failure. 3. Morbid obesity. 4. Down syndrome. 5. Hypertension. 6. Diabetes. PLAN: The patient remains off abx. Continue aspiration precautions Consultation Date/Type/Reason Admit Date/Time Feb 12, 2019 at 12:24 Initial Consult Date Type of Consult id Requesting Provider: LORNA LYONS MD Date/Time of Note DATE: 03/07/19 TIME: 11:18 Exam/Review of Systems Exam Vitals Vital Signs Date Temp Pulse Resp B/P (MAP) Pulse Ox O2 O2 Flow FiO2 Time Delivery Rate 03/07/19 2.0 09:43 03/07/19 103 20 Nasal 09:43 Cannula 03/07/19 97.7 125/62 89 08:17 (83) 03/07/19 30 02:13 Intake and Output 03/06/19 03/06/19 03/07/19 1515:00 23:00 07:00 IntakeIntake Total 150 ml 720 ml OutputOutput Total 500 ml 0 ml BalanceBalance 150 ml 220 ml 0 ml Results Result Diagram: 03/04/19 0603/04/19 06 Results 24hrs Laboratory Tests Test 03/06/19 12:19 03/06/19 17:15 03/06/19 20:59 03/07/19 08:07 Bedside Glucose 116 114 105 154 Medications Medication Current Medications IV Flush (NS 3 ml) 3 ml PER PROTOCOL IV ; Start 02/12/19 at 15:30 Ondansetron HCl (Zofran Inj) 4 mg Q6H PRN IV NAUSEA/VOMITING; Start 02/12/19 at 15:30 Acetaminophen (Tylenol Tab) 650 mg Q6H PRN PO .PAIN 1-3 OR TEMP Last administered on 03/04/19at 18:11; Admin Dose 650 MG; Start 02/12/19 at 15:30 Docusate Sodium (Colace) 100 mg Q12H PRN PO .CONSTIPATION Last administered on 02/21/19at 14:05; Admin Dose 100 MG; Start 02/12/19 at 15:30; Status Hold Enoxaparin Sodium (Lovenox) 40 mg DAILY SC Last administered on 03/07/19 09:09; Admin Dose 40 MG; Start 02/13/19 at 09:00 Levothyroxine Sodium (Synthroid) 88 mcg BEFORE BREAKFAST PO Last administered on 03/07/19 06:03; Admin Dose 88 MCG; Start 02/15/19 at 07:00 Miscellaneous Information 1 ea NOTE XX ; Start 02/14/19 at 10:30 Glucose (Glutose) 15 gm Q15M PRN PO DECREASED GLUCOSE; Start 02/14/19 at 10:30 Glucose (Glutose) 22.5 gm Q15M PRN PO DECREASED GLUCOSE; Start 02/14/19 at 10:30 Dextrose (D50w Syringe) 25 ml Q15M PRN IV DECREASED GLUCOSE; Start 02/14/19 at 10:30 Dextrose (D50w Syringe) 50 ml Q15M PRN IV DECREASED GLUCOSE; Start 02/14/19 at 10:30 Glucagon (Glucagen) 1 mg Q15M PRN IM DECREASED GLUCOSE; Start 02/14/19 at 10:30 Glucose (Glutose) 15 gm Q15M PRN BUCCAL DECREASED GLUCOSE; Start 02/14/19 at 10:30 Docusate Sodium (Colace Liquid Cup) 100 mg BID NGT Last administered on 02/24/19at 21:15; Admin Dose 100 MG; Start 02/15/19 at 11:00; Status Hold Bisacodyl (Dulcolax Supp) 10 mg DAILY PRN [place] CONSTIPATION Last administered on 02/21/19 14:06; Admin Dose 10 MG; Start 02/15/19 at 11:00 Famotidine (Pepcid) 20 mg Q12 NGT Last administered on 03/07/19at 09:07; Admin Dose 20 MG; Start 02/18/19 at 21:00 IV Flush (NS 10 ml) 10 ml PRN PRN IV IV PROTOCOL; Start 02/18/19 at 15:30 Albuterol/ Ipratropium (Duoneb) 3 ml Q6H RESP THERAPY HHN Last administered on 03/07/19 08:58; Admin Dose 3 ML; Start 03/01/19 at 14:00 Furosemide (Lasix) 40 mg DAILY IV Last administered on 03/07/19at 09:08; Admin Dose 40 MG; Start 03/03/19 at 09:00 Insulin Aspart (Novolog Insulin Pen) NOVOLOG *MILD* ALGORITHM WITH MEALS BEDTIME SC Last administered on 03/07/19 09:09; Admin Dose 1 UNIT; Start 03/03/19 at 21:00 Meclizine HCl (Antivert) 12.5 mg BID PRN PO vertigo/dizziness; Start 03/05/19 at 15:30 RUDOLPH YOON NP Mar 07, 2019 11:19
[2019-03-07 14:00] VITALS: BP 126/70; PULSE 118; RESP 28
--- NOTE | 2019-03-07 14:02 | CONS ---
Assessment/Plan Assessment/Plan Hospital Course (Demo Recall) IMPRESSION: 1. Congestive heart failure-diastolic acute on chronic 2. Lower extremity edema, assess for congestive heart failure.-preserved EF 3. Tachycardia, improved, status post intubation, likely due to respiratory distress. 4. Abnormal electrocardiogram with right axis deviation and T-wave flattening. -neg trop x 3 5. Down syndrome. 6. Hypothyroidism. 7. Diabetes mellitus. 8. Obstructive sleep apnea. 9. hypotension-improved overall and stable 10. Resp failure s/p extubation 11.encephalopathy 12. Fevers 14. ? vertigo Recc: -Now on med-surg -Continue lasix diuresis and follow volume status closely s/p extra spot dose yesterday afternoon -s/p course of abx, f/u cx data -Continue bronchodilators -follow resp status closely s/p extubation. -will start low dose BB as tolerated -PRN meclizine Consultation Date/Type/Reason Admit Date/Time Feb 12, 2019 at 12:24 Initial Consult Date 02/12/19 Type of Consult Cardiology Reason for Consultation CHF Requesting Provider: LORNA LYONS MD Date/Time of Note DATE: 03/07/19 TIME: 13:59 Exam/Review of Systems Vital Signs Vitals Vital Signs Date Temp Pulse Resp B/P (MAP) Pulse Ox O2 O2 Flow FiO2 Time Delivery Rate 03/07/19 2.0 09:43 03/07/19 103 20 Nasal 09:43 Cannula 03/07/19 97.7 125/62 89 08:17 (83) 03/07/19 30 02:13 Intake and Output 03/06/19 03/06/19 03/07/19 1515:00 23:00 07:00 IntakeIntake Total 150 ml 720 ml OutputOutput Total 500 ml 0 ml BalanceBalance 150 ml 220 ml 0 ml Exam Exam Review of Systems: CONSTITUTIONAL: No fevers, chills. PULMONARY: No sob CARDIOVASCULAR: No chest pain/palpitations GASTROINTESTINAL: No nausea/vomiting. GENITOURINARY: No hematuria/dysuria. MUSCULOSKELETAL: No myagias/arthalgias. PSYCHIATRIC: The patient denies depression. NEUROLOGIC: No weakness Constitutional: alert ENMT: mucosa pink and moist Neck: supple, jvd (9 cm water) Respiratory: diminished breath sounds (at bases/B) Cardiovascular: regular rate and rhythm Gastrointestinal: soft, non-tender Musculoskeletal: muscle weakness (MILD WEAKNESS) Extremities: other (No focal deficits) Labs Result Diagram: 03/04/19 0603/04/19 06 Results 24hrs Laboratory Tests Test 03/06/19 17:15 03/06/19 20:59 03/07/19 08:07 03/07/19 12:08 Bedside Glucose 114 105 154 123 Medications Medications Current Medications IV Flush (NS 3 ml) 3 ml PER PROTOCOL IV ; Start 02/12/19 at 15:30 Ondansetron HCl (Zofran Inj) 4 mg Q6H PRN IV NAUSEA/VOMITING; Start 02/12/19 at 15:30 Acetaminophen (Tylenol Tab) 650 mg Q6H PRN PO .PAIN 1-3 OR TEMP Last administered on 03/04/19at 18:11; Admin Dose 650 MG; Start 02/12/19 at 15:30 Docusate Sodium (Colace) 100 mg Q12H PRN PO .CONSTIPATION Last administered on 02/21/19at 14:05; Admin Dose 100 MG; Start 02/12/19 at 15:30; Status Hold Enoxaparin Sodium (Lovenox) 40 mg DAILY SC Last administered on 03/07/19at 09:09; Admin Dose 40 MG; Start 02/13/19 at 09:00 Levothyroxine Sodium (Synthroid) 88 mcg BEFORE BREAKFAST PO Last administered on 03/07/19at 06:03; Admin Dose 88 MCG; Start 02/15/19 at 07:00 Miscellaneous Information 1 ea NOTE XX ; Start 02/14/19 at 10:30 Glucose (Glutose) 15 gm Q15M PRN PO DECREASED GLUCOSE; Start 02/14/19 at 10:30 Glucose (Glutose) 22.5 gm Q15M PRN PO DECREASED GLUCOSE; Start 02/14/19 at 10:30 Dextrose (D50w Syringe) 25 ml Q15M PRN IV DECREASED GLUCOSE; Start 02/14/19 at 10:30 Dextrose (D50w Syringe) 50 ml Q15M PRN IV DECREASED GLUCOSE; Start 02/14/19 at 10:30 Glucagon (Glucagen) 1 mg Q15M PRN IM DECREASED GLUCOSE; Start 02/14/19 at 10:30 Glucose (Glutose) 15 gm Q15M PRN BUCCAL DECREASED GLUCOSE; Start 02/14/19 at 10:30 Docusate Sodium (Colace Liquid Cup) 100 mg BID NGT Last administered on 02/24/19 21:15; Admin Dose 100 MG; Start 02/15/19 at 11:00; Status Hold Bisacodyl (Dulcolax Supp) 10 mg DAILY PRN [place] CONSTIPATION Last administered on 02/21/19at 14:06; Admin Dose 10 MG; Start 02/15/19 at 11:00 Famotidine (Pepcid) 20 mg Q12 NGT Last administered on 03/07/19at 09:07; Admin Dose 20 MG; Start 02/18/19 at 21:00 IV Flush (NS 10 ml) 10 ml PRN PRN IV IV PROTOCOL; Start 02/18/19 at 15:30 Albuterol/ Ipratropium (Duoneb) 3 ml Q6H RESP THERAPY HHN Last administered on 03/07/19 08:58; Admin Dose 3 ML; Start 03/01/19 at 14:00 Furosemide (Lasix) 40 mg DAILY IV Last administered on 03/07/19 09:08; Admin Dose 40 MG; Start 03/03/19 at 09:00 Insulin Aspart (Novolog Insulin Pen) NOVOLOG *MILD* ALGORITHM WITH MEALS BEDTIME SC Last administered on 03/07/19 09:09; Admin Dose 1 UNIT; Start 03/03/19 at 21:00 Meclizine HCl (Antivert) 12.5 mg BID PRN PO vertigo/dizziness; Start 03/05/19 at 15:30 SHARIF TORRES Mar 07, 2019 14:02
[2019-03-07] MEDS: METOPROLOL 25 MG TAB PO SCH ×2 (15:32→23:00)
--- NOTE | 2019-03-07 16:23 | PN ---
Date/Time of Note Date/Time of Note DATE: 03/07/19 TIME: 16:19 Assessment/Plan VTE Prophylaxis Risk score (from Nsg)>0 risk: 6 SCD applied (from Ns): No SCD contraindicated: low risk/ambulating Pharmacological prophylaxis: NA/contraindicated Pharm contraindication: low risk/ambulating Lines/Catheters IV Catheter Type (from Nrsg): PICC Line Central line still needed: Yes Urinary Cath still in place: No Assessment/Plan Assessment/Plan ssessment/Plan .1 Severe altered mental status likely secondary to metabolic encephalopathy, likely secondary to CO2 narcosis. much imrpoved >resolved 2. Hypoxic respiratory failure with underlying sleep apnea sp extubation now , now on nasal cannula 3. Respiratory alkalosis 4. Morbid obesity. 5. Down syndrome. 6. Hypertension, now normotensive. 7. Diabetes mellitus type II blood sugar controled. 8. History of ventral hernia repair. 9. Leukocytosis secondary to pneumonia, resolved 10. Hypothyroidism 11. KIRIT, more likely due to sepsis, resolved Assessment/Plan -BIPAP at night. -Physical therapy for aggresive rehab, the patient had been refusing it chest Xray:interstitial opacities and small bilateral pleural effusions suggesting the presence of CHF. -c/w low dose lasix, additional dose -abx stopped per ID -c/w pulmonary consult. - cw levothyroxine supplement -cardiology input is appreciated - GI Famotidine BID - dvt Prophylaxis Lovenox dispo planning snif vs home, pt has not gotten up from bed since extubation, mom motivated, spoke to nurse to have mom take lead for PT as pt has confidence in her ? home health with CPAP, Oxygen Result Diagram: 03/04/19 0601 03/04/19 0601 Results 24hrs Laboratory Tests Test 03/06/19 17:15 03/06/19 20:59 03/07/19 08:07 03/07/19 12:08 Bedside Glucose 114 105 154 123 Subjective 24 Hr Interval Summary Free Text/Dictation per mom is not able to work with PT, NOT motivation little sob today Exam/Review of Systems Exam Vitals Vital Signs Date Temp Pulse Resp B/P (MAP) Pulse Ox O2 O2 Flow FiO2 Time Delivery Rate 03/07/19 2.0 14:17 03/07/19 104 20 Nasal 14:17 Cannula 03/07/19 97.4 126/70 85 14:00 (88) 03/07/19 30 02:13 Intake and Output 03/06/19 03/06/19 03/07/19 1515:00 23:00 07:00 IntakeIntake Total 150 ml 720 ml OutputOutput Total 500 ml 0 ml BalanceBalance 150 ml 220 ml 0 ml Exam thick neck. General awake alert oriented few rhonchi Heart regular rate rhythm abdomen: obese small extremities, 1+edema Results Results 24hrs Laboratory Tests Test 03/06/19 17:15 03/06/19 20:59 03/07/19 08:07 03/07/19 12:08 Bedside Glucose 114 105 154 123 Medications Medication Current Medications IV Flush (NS 3 ml) 3 ml PER PROTOCOL IV ; Start 02/12/19 at 15:30 Ondansetron HCl (Zofran Inj) 4 mg Q6H PRN IV NAUSEA/VOMITING; Start 02/12/19 at 15:30 Acetaminophen (Tylenol Tab) 650 mg Q6H PRN PO .PAIN 1-3 OR TEMP Last administered on 03/04/19at 18:11; Admin Dose 650 MG; Start 02/12/19 at 15:30 Docusate Sodium (Colace) 100 mg Q12H PRN PO .CONSTIPATION Last administered on 02/21/19at 14:05; Admin Dose 100 MG; Start 02/12/19 at 15:30; Status Hold Enoxaparin Sodium (Lovenox) 40 mg DAILY SC Last administered on 03/07/19at 09:09; Admin Dose 40 MG; Start 02/13/19 at 09:00 Levothyroxine Sodium (Synthroid) 88 mcg BEFORE BREAKFAST PO Last administered on 03/07/19at 06:03; Admin Dose 88 MCG; Start 02/15/19 at 07:00 Miscellaneous Information 1 ea NOTE XX ; Start 02/14/19 at 10:30 Glucose (Glutose) 15 gm Q15M PRN PO DECREASED GLUCOSE; Start 02/14/19 at 10:30 Glucose (Glutose) 22.5 gm Q15M PRN PO DECREASED GLUCOSE; Start 02/14/19 at 10:30 Dextrose (D50w Syringe) 25 ml Q15M PRN IV DECREASED GLUCOSE; Start 02/14/19 at 10:30 Dextrose (D50w Syringe) 50 ml Q15M PRN IV DECREASED GLUCOSE; Start 02/14/19 at 10:30 Glucagon (Glucagen) 1 mg Q15M PRN IM DECREASED GLUCOSE; Start 02/14/19 at 10:30 Glucose (Glutose) 15 gm Q15M PRN BUCCAL DECREASED GLUCOSE; Start 02/14/19 at 10:30 Docusate Sodium (Colace Liquid Cup) 100 mg BID NGT Last administered on 02/24/19 21:15; Admin Dose 100 MG; Start 02/15/19 at 11:00; Status Hold Bisacodyl (Dulcolax Supp) 10 mg DAILY PRN [place] CONSTIPATION Last administered on 02/21/19 14:06; Admin Dose 10 MG; Start 02/15/19 at 11:00 Famotidine (Pepcid) 20 mg Q12 NGT Last administered on 03/07/19at 09:07; Admin Dose 20 MG; Start 02/18/19 at 21:00 IV Flush (NS 10 ml) 10 ml PRN PRN IV IV PROTOCOL; Start 02/18/19 at 15:30 Albuterol/ Ipratropium (Duoneb) 3 ml Q6H RESP THERAPY HHN Last administered on 03/07/19at 14:15; Admin Dose 3 ML; Start 03/01/19 at 14:00 Furosemide (Lasix) 40 mg DAILY IV Last administered on 03/07/19 09:08; Admin Dose 40 MG; Start 03/03/19 at 09:00 Insulin Aspart (Novolog Insulin Pen) NOVOLOG *MILD* ALGORITHM WITH MEALS BEDTIME SC Last administered on 03/07/19 09:09; Admin Dose 1 UNIT; Start 03/03/19 at 21:00 Meclizine HCl (Antivert) 12.5 mg BID PRN PO vertigo/dizziness; Start 03/05/19 at 15:30 Metoprolol Tartrate (Lopressor) 12.5 mg BID PO Last administered on 03/07/19at 15:32; Admin Dose 12.5 MG; Start 03/07/19 at 14:00 Furosemide (Lasix) 20 mg ONCE ONCE IV ; Start 03/07/19 at 16:30; Stop 03/07/19 at 16:31 OLRNA LYONS MD Mar 07, 2019 16:23
[2019-03-07] MEDS ORDERED: FUROSEMIDE 20 MG INJ IV ONE (16:30)
[2019-03-07 20:08] VITALS: BP 107/62; PULSE 105; RESP 20
[2019-03-07 23:26] VITALS: PULSE 106
[2019-03-08] VITALS (8 sets, daily range): BP systolic 98–116; BP diastolic 53–69; PULSE 89–104; RESP 18–22
[2019-03-08] MEDS: ALBUTEROL/IPRATROPIUM (NEB) 3 ML AMP HHN SCH ×4 (01:36→19:30)
[2019-03-08] MEDS: LEVOTHYROXINE 88 MCG TAB PO SCH (06:10)
[2019-03-08] MEDS: INSULIN ASPART [NOVOLOG] 3 ML PEN SC SCH ×4 (08:00→21:00)
[2019-03-08] MEDS: POTASSIUM CHLORIDE (SR) 20 MEQ TAB PO SCH ×2 (08:27→10:41)
[2019-03-08] MEDS: METOPROLOL 25 MG TAB PO SCH ×3 (08:28→21:40)
[2019-03-08] MEDS: ENOXAPARIN 40 MG/0.4 ML SYG SC SCH (08:28)
[2019-03-08] MEDS: FAMOTIDINE 20 MG TAB NGT SCH (08:29)
[2019-03-08] MEDS: FUROSEMIDE 40 MG INJ IV SCH (10:41)
--- NOTE | 2019-03-08 16:18 | CONS ---
Consult Date/Type/Reason Admit Date/Time Feb 12, 2019 at 12:24 Initial Consult Date Type of Consultation: Pulm/CCM Requesting Provider: LORNA LYONS MD Date/Time of Note DATE: 03/08/19 TIME: 16:16 Subjective No events overnight. Objective Vitals Vital Signs Date Temp Pulse Resp B/P (MAP) Pulse Ox O2 O2 Flow FiO2 Time Delivery Rate 03/08/19 92 20 94 Nasal 2.0 14:50 Cannula 03/08/19 98.1 110/53 14:00 (72) 03/08/19 30 03:30 Intake and Output 03/07/19 03/07/19 03/08/19 1515:00 23:00 07:00 IntakeIntake Total 120 ml 60 ml 150 ml BalanceBalance 120 ml 60 ml 150 ml Exam NECK: Supple. No JVD or lymphadenopathy. CARDIAC EXAM: S1, S2. No added sounds or murmurs. CHEST: clear bilaterally, No added sounds, rales or wheezes ABDOMEN: Soft, nontender. No guarding or rebound. EXTREMITIES: No cyanosis, clubbing or edema. NEUROLOGIC: Generalized weakness. Results/Medications Result Diagram: 03/04/19 0601 03/08/19 1349 Results 24 hrs Laboratory Tests Test 03/07/19 17:13 03/07/19 21:00 03/08/19 06:16 03/08/19 07:43 Bedside Glucose 133 135 Sodium Level 136 138 Potassium Level 2.9 *L 3.3 L Chloride Level 94 L 95 L Carbon Dioxide Level 35 H 34 H Anion Gap 7 9 Blood Urea Nitrogen 17 17 Creatinine 0.65 0.57 Est Glomerular > 60 > 60 Filtrat Rate mL/min Glucose Level 108 121 Calcium Level 9.3 9.1 Test 03/08/19 08:22 03/08/19 12:09 03/08/19 13:49 Bedside Glucose 130 116 Potassium Level 3.9 Home Meds Reported Medications [place] Carbonate* ([place]*) 300 Mg Cap, 600 MG PO QHS, CAP 02/12/19 Levothyroxine Sodium* (Levoxyl*) 88 Mcg Tablet, 88 MCG PO BEFORE BREAKFAST, #30 TAB 02/12/19 Loxapine Succinate (Loxapine) 10 Mg Capsule, 10 MG PO QHS, CAP 02/12/19 Cyanocobalamin* (Vitamin B12*) 100 Mcg Tab, 100 MCG PO DAILY, TAB 02/12/19 Loratadine* (Loratadine*) 10 Mg Tablet, 10 MG PO DAILY, #30 TAB 02/12/19 Metformin Hcl* (Metformin Hcl*) 500 Mg Tablet, 500 MG PO WITH BREAKFAST, #30 TAB 02/12/19 Propranolol Hcl* (Propranolol Hcl*) 10 Mg Tablet, 10 MG PO BID, TAB 02/12/19 Ergocalciferol (Vitamin D2) (VITAMIN D2) 50,000 Unit Capsule, 66937 UNIT PO EVERY SUNDAY, CAP 02/12/19 Medications Current Medications IV Flush (NS 3 ml) 3 ml PER PROTOCOL IV ; Start 02/12/19 at 15:30 Ondansetron HCl (Zofran Inj) 4 mg Q6H PRN IV NAUSEA/VOMITING; Start 02/12/19 at 15:30 Acetaminophen (Tylenol Tab) 650 mg Q6H PRN PO .PAIN 1-3 OR TEMP Last administered on 03/04/19at 18:11; Admin Dose 650 MG; Start 02/12/19 at 15:30 Docusate Sodium (Colace) 100 mg Q12H PRN PO .CONSTIPATION Last administered on 02/21/19at 14:05; Admin Dose 100 MG; Start 02/12/19 at 15:30; Status Hold Enoxaparin Sodium (Lovenox) 40 mg DAILY SC Last administered on 03/08/19at 08:28; Admin Dose 40 MG; Start 02/13/19 at 09:00 Levothyroxine Sodium (Synthroid) 88 mcg BEFORE BREAKFAST PO Last administered on 03/08/19at 06:10; Admin Dose 88 MCG; Start 02/15/19 at 07:00 Miscellaneous Information 1 ea NOTE XX ; Start 02/14/19 at 10:30 Glucose (Glutose) 15 gm Q15M PRN PO DECREASED GLUCOSE; Start 02/14/19 at 10:30 Glucose (Glutose) 22.5 gm Q15M PRN PO DECREASED GLUCOSE; Start 02/14/19 at 10:30 Dextrose (D50w Syringe) 25 ml Q15M PRN IV DECREASED GLUCOSE; Start 02/14/19 at 10:30 Dextrose (D50w Syringe) 50 ml Q15M PRN IV DECREASED GLUCOSE; Start 02/14/19 at 10:30 Glucagon (Glucagen) 1 mg Q15M PRN IM DECREASED GLUCOSE; Start 02/14/19 at 10:30 Glucose (Glutose) 15 gm Q15M PRN BUCCAL DECREASED GLUCOSE; Start 02/14/19 at 10:30 Docusate Sodium (Colace Liquid Cup) 100 mg BID NGT Last administered on 02/24/19 21:15; Admin Dose 100 MG; Start 02/15/19 at 11:00; Status Hold Bisacodyl (Dulcolax Supp) 10 mg DAILY PRN [place] CONSTIPATION Last administered on 02/21/19at 14:06; Admin Dose 10 MG; Start 02/15/19 at 11:00 Famotidine (Pepcid) 20 mg Q12 NGT Last administered on 03/08/19at 08:29; Admin Dose 20 MG; Start 02/18/19 at 21:00 IV Flush (NS 10 ml) 10 ml PRN PRN IV IV PROTOCOL; Start 02/18/19 at 15:30 Albuterol/ Ipratropium (Duoneb) 3 ml Q6H RESP THERAPY HHN Last administered on 03/08/19at 14:50; Admin Dose 3 ML; Start 03/01/19 at 14:00 Furosemide (Lasix) 40 mg DAILY IV Last administered on 03/08/19at 10:41; Admin Dose 40 MG; Start 03/03/19 at 09:00 Insulin Aspart (Novolog Insulin Pen) NOVOLOG *MILD* ALGORITHM WITH MEALS BEDTIME SC Last administered on 03/07/19 09:09; Admin Dose 1 UNIT; Start 03/03/19 at 21:00 Meclizine HCl (Antivert) 12.5 mg BID PRN PO vertigo/dizziness; Start 03/05/19 at 15:30 Metoprolol Tartrate (Lopressor) 12.5 mg BID PO Last administered on 03/08/19 08:28; Admin Dose 12.5 MG; Start 03/07/19 at 14:00 Potassium Chloride (Klor-Con 20) 20 meq DAILY PO ; Start 03/09/19 at 09:00 Assessment/Plan Assessment/Plan (Daily) IMP: 1. s/p Hypoxemic Respiratory Failure:s/p pneumonia 3. EILEEN 4. HTN 5. DM RECS: 1. Aspiration precautions 2. PT/Ot 3. BDs prn SIMRAN FALK MD Mar 08, 2019 16:18
--- NOTE | 2019-03-08 16:30 | CONS ---
Assessment/Plan Assessment/Plan Hospital Course (Demo Recall) IMPRESSION: 1. Congestive heart failure-diastolic acute on chronic 2. Lower extremity edema, assess for congestive heart failure.-preserved EF 3. Tachycardia, improved, status post intubation, likely due to respiratory distress. 4. Abnormal electrocardiogram with right axis deviation and T-wave flattening. -neg trop x 3 5. Down syndrome. 6. Hypothyroidism. 7. Diabetes mellitus. 8. Obstructive sleep apnea. 9. hypotension-improved overall and stable 10. Resp failure s/p extubation 11.encephalopathy 12. Fevers 14. ? vertigo Recc: -Now on med-surg -Continue lasix diuresis and follow volume status closely s/p extra spot dose yesterday afternoon -s/p course of abx, f/u cx data -continue BB -Continue bronchodilators -follow resp status closely s/p extubation. -PRN meclizine Consultation Date/Type/Reason Admit Date/Time Feb 12, 2019 at 12:24 Initial Consult Date 02/12/19 Type of Consult Cardiology Reason for Consultation chest pain Requesting Provider: LORNA LYONS MD Date/Time of Note DATE: 03/08/19 TIME: 16:28 Exam/Review of Systems Vital Signs Vitals Vital Signs Date Temp Pulse Resp B/P (MAP) Pulse Ox O2 O2 Flow FiO2 Time Delivery Rate 03/08/19 92 20 94 Nasal 2.0 14:50 Cannula 03/08/19 98.1 110/53 14:00 (72) 03/08/19 30 03:30 Intake and Output 03/07/19 03/07/19 03/08/19 1515:00 23:00 07:00 IntakeIntake Total 120 ml 60 ml 150 ml BalanceBalance 120 ml 60 ml 150 ml Exam Exam Review of Systems: CONSTITUTIONAL: No fevers, chills. PULMONARY: No sob CARDIOVASCULAR: No chest pain/palpitations GASTROINTESTINAL: No nausea/vomiting. GENITOURINARY: No hematuria/dysuria. MUSCULOSKELETAL: No myagias/arthalgias. PSYCHIATRIC: The patient denies depression. NEUROLOGIC: No weakness Constitutional: alert Psych: no complaints Head: normocephalic ENMT: mucosa pink and moist Neck: supple, jvd (9 cm water) Respiratory: clear to auscultation Cardiovascular: regular rate and rhythm Gastrointestinal: soft, non-tender Musculoskeletal: muscle tone (normal) Extremities: edema (none) Neurological: other (No focal deficits) Labs Result Diagram: 03/04/19 0601 03/08/19 1349 Results 24hrs Laboratory Tests Test 03/07/19 17:13 03/07/19 21:00 03/08/19 06:16 03/08/19 07:43 Bedside Glucose 133 135 Sodium Level 136 138 Potassium Level 2.9 *L 3.3 L Chloride Level 94 L 95 L Carbon Dioxide Level 35 H 34 H Anion Gap 7 9 Blood Urea Nitrogen 17 17 Creatinine 0.65 0.57 Est Glomerular > 60 > 60 Filtrat Rate mL/min Glucose Level 108 121 Calcium Level 9.3 9.1 Test 03/08/19 08:22 03/08/19 12:09 03/08/19 13:49 Bedside Glucose 130 116 Potassium Level 3.9 Medications Medications Current Medications IV Flush (NS 3 ml) 3 ml PER PROTOCOL IV ; Start 02/12/19 at 15:30 Ondansetron HCl (Zofran Inj) 4 mg Q6H PRN IV NAUSEA/VOMITING; Start 02/12/19 at 15:30 Acetaminophen (Tylenol Tab) 650 mg Q6H PRN PO .PAIN 1-3 OR TEMP Last administered on 03/04/19at 18:11; Admin Dose 650 MG; Start 02/12/19 at 15:30 Docusate Sodium (Colace) 100 mg Q12H PRN PO .CONSTIPATION Last administered on 02/21/19at 14:05; Admin Dose 100 MG; Start 02/12/19 at 15:30; Status Hold Enoxaparin Sodium (Lovenox) 40 mg DAILY SC Last administered on 03/08/19at 08:28; Admin Dose 40 MG; Start 02/13/19 at 09:00 Levothyroxine Sodium (Synthroid) 88 mcg BEFORE BREAKFAST PO Last administered on 03/08/19at 06:10; Admin Dose 88 MCG; Start 02/15/19 at 07:00 Miscellaneous Information 1 ea NOTE XX ; Start 02/14/19 at 10:30 Glucose (Glutose) 15 gm Q15M PRN PO DECREASED GLUCOSE; Start 02/14/19 at 10:30 Glucose (Glutose) 22.5 gm Q15M PRN PO DECREASED GLUCOSE; Start 02/14/19 at 10:30 Dextrose (D50w Syringe) 25 ml Q15M PRN IV DECREASED GLUCOSE; Start 02/14/19 at 10:30 Dextrose (D50w Syringe) 50 ml Q15M PRN IV DECREASED GLUCOSE; Start 02/14/19 at 10:30 Glucagon (Glucagen) 1 mg Q15M PRN IM DECREASED GLUCOSE; Start 02/14/19 at 10:30 Glucose (Glutose) 15 gm Q15M PRN BUCCAL DECREASED GLUCOSE; Start 02/14/19 at 10:30 Docusate Sodium (Colace Liquid Cup) 100 mg BID NGT Last administered on 02/24/19at 21:15; Admin Dose 100 MG; Start 02/15/19 at 11:00; Status Hold Bisacodyl (Dulcolax Supp) 10 mg DAILY PRN [place] CONSTIPATION Last administered on 02/21/19at 14:06; Admin Dose 10 MG; Start 02/15/19 at 11:00 Famotidine (Pepcid) 20 mg Q12 NGT Last administered on 03/08/19at 08:29; Admin Dose 20 MG; Start 02/18/19 at 21:00 IV Flush (NS 10 ml) 10 ml PRN PRN IV IV PROTOCOL; Start 02/18/19 at 15:30 Albuterol/ Ipratropium (Duoneb) 3 ml Q6H RESP THERAPY HHN Last administered on 03/08/19at 14:50; Admin Dose 3 ML; Start 03/01/19 at 14:00 Furosemide (Lasix) 40 mg DAILY IV Last administered on 03/08/19at 10:41; Admin Dose 40 MG; Start 03/03/19 at 09:00 Insulin Aspart (Novolog Insulin Pen) NOVOLOG *MILD* ALGORITHM WITH MEALS BEDTIME SC Last administered on 03/07/19at 09:09; Admin Dose 1 UNIT; Start 03/03/19 at 21:00 Meclizine HCl (Antivert) 12.5 mg BID PRN PO vertigo/dizziness; Start 03/05/19 at 15:30 Metoprolol Tartrate (Lopressor) 12.5 mg BID PO Last administered on 03/08/19 08:28; Admin Dose 12.5 MG; Start 03/07/19 at 14:00 Potassium Chloride (Klor-Con 20) 20 meq DAILY PO ; Start 7/28/19 at 09:00 SHARIF TORRES Mar 08, 2019 16:30
--- NOTE | 2019-03-08 17:05 | PN ---
Date/Time of Note Date/Time of Note DATE: 03/08/19 TIME: 16:40 Assessment/Plan VTE Prophylaxis Risk score (from Ns)>0 risk: 6 SCD applied (from Ns): No SCD contraindicated: other Pharmacological prophylaxis: LMWH Lines/Catheters IV Catheter Type (from Nrsg): PICC Line Central line still needed: Yes Urinary Cath still in place: No Assessment/Plan Hospital Course 1. Severe altered mental status likely secondary to metabolic encephalopathy, likely secondary to CO2 narcosis. pt is alert, oriented 2 2. Hypoxic respiratory failure, resolving, still on supplemental oxygen 3. Respiratory alkalosis, no ABG today 4. Morbid obesity. 5. Down syndrome. 6. Hypertension, now normotensive. 7. Diabetes mellitus type II blood sugar controled. 8. History of ventral hernia repair. 9. Leukocytosis secondary to pneumonia, resolved 10. Hypothyroidism 11. KIRIT, more likely due to sepsis, resolved Assessment/Plan -dc pending -BIPAP at night, nother knows how to use it. -Physical therapy for aggresive rehab, the patient had been refusing it, HH not available -start Ritalin. -c/w low dose lasix -abx stopped per ID -c/w pulmonary consult. - cw levothyroxine supplement -cardiology input is appreciated - GI Famotidine BID - dvt Prophylaxis Lovenox Result Diagram: 03/04/19 0601 03/08/19 1349 Results 24hrs Laboratory Tests Test 03/07/19 17:13 03/07/19 21:00 03/08/19 06:16 03/08/19 07:43 Bedside Glucose 133 135 Sodium Level 136 138 Potassium Level 2.9 *L 3.3 L Chloride Level 94 L 95 L Carbon Dioxide Level 35 H 34 H Anion Gap 7 9 Blood Urea Nitrogen 17 17 Creatinine 0.65 0.57 Est Glomerular > 60 > 60 Filtrat Rate mL/min Glucose Level 108 121 Calcium Level 9.3 9.1 Test 03/08/19 08:22 03/08/19 12:09 03/08/19 13:49 Bedside Glucose 130 116 Potassium Level 3.9 Subjective 24 Hr Interval Summary Free Text/Dictation pt did not answer, spoke to mother Exam/Review of Systems Exam Vitals Vital Signs Date Temp Pulse Resp B/P (MAP) Pulse Ox O2 O2 Flow FiO2 Time Delivery Rate 03/08/19 92 20 94 Nasal 2.0 14:50 Cannula 03/08/19 98.1 110/53 14:00 (72) 03/08/19 30 03:30 Intake and Output 03/07/19 03/07/19 03/08/19 1515:00 23:00 07:00 IntakeIntake Total 120 ml 60 ml 150 ml BalanceBalance 120 ml 60 ml 150 ml Exam No acute distress, no events overnight. Eyes: anicteric, EOM's intact, no pallor Nose: no rhinorrhea Neck: supple, no thyromegaly, no carotid bruits, short Lungs: clear bilaterally, decreased. CVS: regular rate and rhythm, no murmurs Abdomen: soft, bowel sounds present, obese External genitalia: no lesions. Extremities: trace edema, Neuro: alert and oriented x 1 Gait: unable to see Motor strenght: 5+/5+ Deep tendon reflexes: normal, Babisky reflexes are absent bilaterally Skin: no lesions Results Results 24hrs Laboratory Tests Test 03/07/19 17:13 03/07/19 21:00 03/08/19 06:16 03/08/19 07:43 Bedside Glucose 133 135 Sodium Level 136 138 Potassium Level 2.9 *L 3.3 L Chloride Level 94 L 95 L Carbon Dioxide Level 35 H 34 H Anion Gap 7 9 Blood Urea Nitrogen 17 17 Creatinine 0.65 0.57 Est Glomerular > 60 > 60 Filtrat Rate mL/min Glucose Level 108 121 Calcium Level 9.3 9.1 Test 03/08/19 08:22 03/08/19 12:09 03/08/19 13:49 Bedside Glucose 130 116 Potassium Level 3.9 Medications Medication Current Medications IV Flush (NS 3 ml) 3 ml PER PROTOCOL IV ; Start 02/12/19 at 15:30 Ondansetron HCl (Zofran Inj) 4 mg Q6H PRN IV NAUSEA/VOMITING; Start 02/12/19 at 15:30 Acetaminophen (Tylenol Tab) 650 mg Q6H PRN PO .PAIN 1-3 OR TEMP Last administered on 03/04/19at 18:11; Admin Dose 650 MG; Start 02/12/19 at 15:30 Docusate Sodium (Colace) 100 mg Q12H PRN PO .CONSTIPATION Last administered on 02/21/19at 14:05; Admin Dose 100 MG; Start 02/12/19 at 15:30; Status Hold Enoxaparin Sodium (Lovenox) 40 mg DAILY SC Last administered on 03/08/19at 08:28; Admin Dose 40 MG; Start 02/13/19 at 09:00 Levothyroxine Sodium (Synthroid) 88 mcg BEFORE BREAKFAST PO Last administered on 03/08/19at 06:10; Admin Dose 88 MCG; Start 02/15/19 at 07:00 Miscellaneous Information 1 ea NOTE XX ; Start 02/14/19 at 10:30 Glucose (Glutose) 15 gm Q15M PRN PO DECREASED GLUCOSE; Start 02/14/19 at 10:30 Glucose (Glutose) 22.5 gm Q15M PRN PO DECREASED GLUCOSE; Start 02/14/19 at 10:30 Dextrose (D50w Syringe) 25 ml Q15M PRN IV DECREASED GLUCOSE; Start 02/14/19 at 10:30 Dextrose (D50w Syringe) 50 ml Q15M PRN IV DECREASED GLUCOSE; Start 02/14/19 at 10:30 Glucagon (Glucagen) 1 mg Q15M PRN IM DECREASED GLUCOSE; Start 02/14/19 at 10:30 Glucose (Glutose) 15 gm Q15M PRN BUCCAL DECREASED GLUCOSE; Start 02/14/19 at 10:30 Docusate Sodium (Colace Liquid Cup) 100 mg BID NGT Last administered on 02/24/19at 21:15; Admin Dose 100 MG; Start 02/15/19 at 11:00; Status Hold Bisacodyl (Dulcolax Supp) 10 mg DAILY PRN [place] CONSTIPATION Last administered on 02/21/19at 14:06; Admin Dose 10 MG; Start 02/15/19 at 11:00 Famotidine (Pepcid) 20 mg Q12 NGT Last administered on 03/08/19at 08:29; Admin Dose 20 MG; Start 02/18/19 at 21:00 IV Flush (NS 10 ml) 10 ml PRN PRN IV IV PROTOCOL; Start 02/18/19 at 15:30 Albuterol/ Ipratropium (Duoneb) 3 ml Q6H RESP THERAPY HHN Last administered on 03/08/19at 14:50; Admin Dose 3 ML; Start 03/01/19 at 14:00 Furosemide (Lasix) 40 mg DAILY IV Last administered on 03/08/19at 10:41; Admin Dose 40 MG; Start 03/03/19 at 09:00 Insulin Aspart (Novolog Insulin Pen) NOVOLOG *MILD* ALGORITHM WITH MEALS BEDTIME SC Last administered on 03/07/19at 09:09; Admin Dose 1 UNIT; Start 03/03/19 at 21:00 Meclizine HCl (Antivert) 12.5 mg BID PRN PO vertigo/dizziness; Start 03/05/19 a t 15:30 Metoprolol Tartrate (Lopressor) 12.5 mg BID PO Last administered on 03/08/19at 08:28; Admin Dose 12.5 MG; Start 03/07/19 at 14:00 Potassium Chloride (Klor-Con 20) 20 meq DAILY PO ; Start 03/09/19 at 09:00 CARY GIPSON NP Mar 08, 2019 17:05
[2019-03-08] MEDS: FAMOTIDINE 20 MG TAB PO SCH (21:35)
[2019-03-09] VITALS (12 sets, daily range): BP systolic 91–112; BP diastolic 50–66; PULSE 16–121; RESP 16–28
[2019-03-09] MEDS: ALBUTEROL/IPRATROPIUM (NEB) 3 ML AMP HHN SCH ×4 (01:42→19:57)
[2019-03-09] MEDS: LEVOTHYROXINE 88 MCG TAB PO SCH (06:40)
[2019-03-09] MEDS: INSULIN ASPART [NOVOLOG] 3 ML PEN SC SCH ×4 (08:00→21:00)
[2019-03-09] MEDS ORDERED: FAMOTIDINE 20 MG TAB PO SCH (09:00)
[2019-03-09] MEDS: METOPROLOL 25 MG TAB PO SCH ×3 (09:00→21:00)
[2019-03-09] MEDS ORDERED: METHYLPHENIDATE 5 MG TAB PO SCH (09:00)
[2019-03-09] MEDS: FUROSEMIDE 40 MG INJ IV SCH (09:00)
[2019-03-09] MEDS: FAMOTIDINE 20 MG TAB PO SCH ×2 (09:04→21:05)
[2019-03-09] MEDS: ENOXAPARIN 40 MG/0.4 ML SYG SC SCH (09:04)
[2019-03-09] MEDS: POTASSIUM CHLORIDE (SR) 20 MEQ TAB PO SCH (09:04)
--- NOTE | 2019-03-09 13:31 | CONS ---
Assessment/Plan Assessment/Plan Hospital Course (Demo Recall) IMPRESSION: 1. Congestive heart failure-diastolic acute on chronic 2. Lower extremity edema, assess for congestive heart failure.-preserved EF 3. Tachycardia, improved, status post intubation, likely due to respiratory distress. 4. Abnormal electrocardiogram with right axis deviation and T-wave flattening. -neg trop x 3 5. Down syndrome. 6. Hypothyroidism. 7. Diabetes mellitus. 8. Obstructive sleep apnea. 9. hypotension-improved overall and stable 10. Resp failure s/p extubation 11.encephalopathy 12. Fevers 14. ? vertigo Recc: -Now on med-surg -Continue lasix diuresis and follow volume status closely s/p extra spot dose yesterday afternoon -s/p course of abx, f/u cx data -continue BB as tolerted only -Continue bronchodilators -follow resp status closely s/p extubation. -PRN meclizine Consultation Date/Type/Reason Admit Date/Time Feb 12, 2019 at 12:24 Initial Consult Date 02/12/19 Type of Consult Cardiology Reason for Consultation chest pain Requesting Provider: LORNA LYONS MD Date/Time of Note DATE: 03/09/19 TIME: 13:29 Exam/Review of Systems Vital Signs Vitals Vital Signs Date Temp Pulse Resp B/P (MAP) Pulse Ox O2 O2 Flow FiO2 Time Delivery Rate 03/09/19 93 Nasal 2.0 12:00 Cannula 03/09/19 97.1 86 20 98/50 (66) 07:59 03/09/19 21 07:48 Intake and Output 03/08/19 03/08/19 03/09/19 1515:00 23:00 07:00 IntakeIntake Total 450 ml 200 ml BalanceBalance 450 ml 200 ml Exam Exam Review of Systems: CONSTITUTIONAL: No fevers, chills. PULMONARY: No sob CARDIOVASCULAR: No chest pain/palpitations GASTROINTESTINAL: No nausea/vomiting. GENITOURINARY: No hematuria/dysuria. MUSCULOSKELETAL: No myagias/arthalgias. PSYCHIATRIC: The patient denies depression. NEUROLOGIC: No weakness Constitutional: alert Psych: no complaints Head: normocephalic ENMT: mucosa pink and moist Neck: supple, jvd (9 cm ) Respiratory: diminished breath sounds (at bases) Cardiovascular: regular rate and rhythm Gastrointestinal: soft Musculoskeletal: muscle tone (normal) Extremities: edema (none) Neurological: other (No focal deficits) Labs Result Diagram: 03/08/19 1349 Results 24hrs Laboratory Tests Test 03/08/19 13:49 03/08/19 17:28 03/08/19 17:42 03/08/19 21:25 Potassium Level 3.9 Bedside Glucose 124 104 Urine Color YELLOW Urine Clarity CLEAR Urine pH 7.0 Urine Specific 1.010 [place] Urine Ketones NEGATIVE Urine Nitrite NEGATIVE Urine Bilirubin NEGATIVE Urine Urobilinogen NEGATIVE Urine Leukocyte NEGATIVE Esterase Urine Microscopic 1 RBC Urine Microscopic 0 WBC Urine Hemoglobin 1+ H Urine Glucose NEGATIVE Urine Total Protein NEGATIVE Test 03/09/19 08:01 03/09/19 12:04 Bedside Glucose 119 115 Medications Medications Current Medications IV Flush (NS 3 ml) 3 ml PER PROTOCOL IV ; Start 02/12/19 at 15:30 Ondansetron HCl (Zofran Inj) 4 mg Q6H PRN IV NAUSEA/VOMITING; Start 02/12/19 at 15:30 Acetaminophen (Tylenol Tab) 650 mg Q6H PRN PO .PAIN 1-3 OR TEMP Last administered on 03/04/19at 18:11; Admin Dose 650 MG; Start 02/12/19 at 15:30 Docusate Sodium (Colace) 100 mg Q12H PRN PO .CONSTIPATION Last administered on 02/21/19at 14:05; Admin Dose 100 MG; Start 02/12/19 at 15:30; Status Hold Enoxaparin Sodium (Lovenox) 40 mg DAILY SC Last administered on 03/09/19at 09:04; Admin Dose 40 MG; Start 02/13/19 at 09:00 Levothyroxine Sodium (Synthroid) 88 mcg BEFORE BREAKFAST PO Last administered on 03/09/19at 06:40; Admin Dose 88 MCG; Start 02/15/19 at 07:00 Miscellaneous Information 1 ea NOTE XX ; Start 02/14/19 at 10:30 Glucose (Glutose) 15 gm Q15M PRN PO DECREASED GLUCOSE; Start 02/14/19 at 10:30 Glucose (Glutose) 22.5 gm Q15M PRN PO DECREASED GLUCOSE; Start 02/14/19 at 10:30 Dextrose (D50w Syringe) 25 ml Q15M PRN IV DECREASED GLUCOSE; Start 02/14/19 at 10:30 Dextrose (D50w Syringe) 50 ml Q15M PRN IV DECREASED GLUCOSE; Start 02/14/19 at 10:30 Glucagon (Glucagen) 1 mg Q15M PRN IM DECREASED GLUCOSE; Start 02/14/19 at 10:30 Glucose (Glutose) 15 gm Q15M PRN BUCCAL DECREASED GLUCOSE; Start 02/14/19 at 10:30 Docusate Sodium (Colace Liquid Cup) 100 mg BID NGT Last administered on 02/24/19 21:15; Admin Dose 100 MG; Start 02/15/19 at 11:00; Status Hold Bisacodyl (Dulcolax Supp) 10 mg DAILY PRN [place] CONSTIPATION Last administered on 02/21/19 14:06; Admin Dose 10 MG; Start 02/15/19 at 11:00 IV Flush (NS 10 ml) 10 ml PRN PRN IV IV PROTOCOL; Start 02/18/19 at 15:30 Albuterol/ Ipratropium (Duoneb) 3 ml Q6H RESP THERAPY HHN Last administered on 03/09/19 07:37; Admin Dose 3 ML; Start 03/01/19 at 14:00 Furosemide (Lasix) 40 mg DAILY IV Last administered on 03/08/19at 10:41; Admin Dose 40 MG; Start 03/03/19 at 09:00 Insulin Aspart (Novolog Insulin Pen) NOVOLOG *MILD* ALGORITHM WITH MEALS BEDTIME SC Last administered on 03/07/19 09:09; Admin Dose 1 UNIT; Start 03/03/19 at 21:00 Meclizine HCl (Antivert) 12.5 mg BID PRN PO vertigo/dizziness; Start 03/05/19 at 15:30 Metoprolol Tartrate (Lopressor) 12.5 mg BID PO Last administered on 03/08/19 21:40; Admin Dose 12.5 MG; Start 03/07/19 at 14:00 Potassium Chloride (Klor-Con 20) 20 meq DAILY PO Last administered on 03/09/19 09:04; Admin Dose 20 MEQ; Start 03/09/19 at 09:00 Methylphenidate HCl (Ritalin) 5 mg DAILY PO Last administered on 03/09/19 09:03; Admin Dose 5 MG; Start 03/09/19 at 09:00 Famotidine (Pepcid) 20 mg Q12 PO Last administered on 03/09/19at 09:04; Admin Dose 20 MG; Start 03/08/19 at 21:00 SHARIF TORRSE Mar 09, 2019 13:31
--- NOTE | 2019-03-09 14:17 | CONS ---
Consult Date/Type/Reason Admit Date/Time Feb 12, 2019 at 12:24 Initial Consult Date Type of Consultation: Pulm/CCM Requesting Provider: LORNA LYONS MD Date/Time of Note DATE: 03/09/19 TIME: 14:16 Subjective Doing well from a resp perspective Objective Vitals Vital Signs Date Temp Pulse Resp B/P (MAP) Pulse Ox O2 O2 Flow FiO2 Time Delivery Rate 03/09/19 97.9 111 16 107/53 90 Nasal 14:03 (71) Cannula 16 03/09/19 2.0 12:00 03/09/19 21 07:48 Intake and Output 03/08/19 03/08/19 03/09/19 1515:00 23:00 07:00 IntakeIntake Total 450 ml 200 ml BalanceBalance 450 ml 200 ml Exam NECK: Supple. No JVD or lymphadenopathy. CARDIAC EXAM: S1, S2. No added sounds or murmurs. CHEST: clear bilaterally, No added sounds, rales or wheezes ABDOMEN: Soft, nontender. No guarding or rebound. EXTREMITIES: No cyanosis, clubbing or edema. NEUROLOGIC: Generalized weakness. Results/Medications Result Diagram: 03/08/19 1349 Results 24 hrs Laboratory Tests Test 03/08/19 17:28 03/08/19 17:42 03/08/19 21:25 03/09/19 08:01 Bedside Glucose 124 104 119 Urine Color YELLOW Urine Clarity CLEAR Urine pH 7.0 Urine Specific 1.010 [place] Urine Ketones NEGATIVE Urine Nitrite NEGATIVE Urine Bilirubin NEGATIVE Urine Urobilinogen NEGATIVE Urine Leukocyte NEGATIVE Esterase Urine Microscopic 1 RBC Urine Microscopic 0 WBC Urine Hemoglobin 1+ H Urine Glucose NEGATIVE Urine Total Protein NEGATIVE Test 03/09/19 12:04 Bedside Glucose 115 Home Meds Reported Medications [place] Carbonate* ([place]*) 300 Mg Cap, 600 MG PO QHS, CAP 02/12/19 Levothyroxine Sodium* (Levoxyl*) 88 Mcg Tablet, 88 MCG PO BEFORE BREAKFAST, #30 TAB 02/12/19 Loxapine Succinate (Loxapine) 10 Mg Capsule, 10 MG PO QHS, CAP 02/12/19 Cyanocobalamin* (Vitamin B12*) 100 Mcg Tab, 100 MCG PO DAILY, TAB 02/12/19 Loratadine* (Loratadine*) 10 Mg Tablet, 10 MG PO DAILY, #30 TAB 02/12/19 Metformin Hcl* (Metformin Hcl*) 500 Mg Tablet, 500 MG PO WITH BREAKFAST, #30 TAB 02/12/19 Propranolol Hcl* (Propranolol Hcl*) 10 Mg Tablet, 10 MG PO BID, TAB 02/12/19 Ergocalciferol (Vitamin D2) (VITAMIN D2) 50,000 Unit Capsule, 93097 UNIT PO EVERY SUNDAY, CAP 02/12/19 Medications Current Medications IV Flush (NS 3 ml) 3 ml PER PROTOCOL IV ; Start 02/12/19 at 15:30 Ondansetron HCl (Zofran Inj) 4 mg Q6H PRN IV NAUSEA/VOMITING; Start 02/12/19 at 15:30 Acetaminophen (Tylenol Tab) 650 mg Q6H PRN PO .PAIN 1-3 OR TEMP Last administered on 03/04/19at 18:11; Admin Dose 650 MG; Start 02/12/19 at 15:30 Docusate Sodium (Colace) 100 mg Q12H PRN PO .CONSTIPATION Last administered on 02/21/19at 14:05; Admin Dose 100 MG; Start 02/12/19 at 15:30; Status Hold Enoxaparin Sodium (Lovenox) 40 mg DAILY SC Last administered on 03/09/19at 09:04; Admin Dose 40 MG; Start 02/13/19 at 09:00 Levothyroxine Sodium (Synthroid) 88 mcg BEFORE BREAKFAST PO Last administered on 03/09/19at 06:40; Admin Dose 88 MCG; Start 02/15/19 at 07:00 Miscellaneous Information 1 ea NOTE XX ; Start 02/14/19 at 10:30 Glucose (Glutose) 15 gm Q15M PRN PO DECREASED GLUCOSE; Start 02/14/19 at 10:30 Glucose (Glutose) 22.5 gm Q15M PRN PO DECREASED GLUCOSE; Start 02/14/19 at 10:30 Dextrose (D50w Syringe) 25 ml Q15M PRN IV DECREASED GLUCOSE; Start 02/14/19 at 10:30 Dextrose (D50w Syringe) 50 ml Q15M PRN IV DECREASED GLUCOSE; Start 02/14/19 at 10:30 Glucagon (Glucagen) 1 mg Q15M PRN IM DECREASED GLUCOSE; Start 02/14/19 at 10:30 Glucose (Glutose) 15 gm Q15M PRN BUCCAL DECREASED GLUCOSE; Start 02/14/19 at 10:30 Docusate Sodium (Colace Liquid Cup) 100 mg BID NGT Last administered on 02/24/19 21:15; Admin Dose 100 MG; Start 02/15/19 at 11:00; Status Hold Bisacodyl (Dulcolax Supp) 10 mg DAILY PRN [place] CONSTIPATION Last administered on 02/21/19 14:06; Admin Dose 10 MG; Start 02/15/19 at 11:00 IV Flush (NS 10 ml) 10 ml PRN PRN IV IV PROTOCOL; Start 02/18/19 at 15:30 Albuterol/ Ipratropium (Duoneb) 3 ml Q6H RESP THERAPY HHN Last administered on 03/09/19 07:37; Admin Dose 3 ML; Start 03/01/19 at 14:00 Furosemide (Lasix) 40 mg DAILY IV Last administered on 03/08/19 10:41; Admin Dose 40 MG; Start 03/03/19 at 09:00 Insulin Aspart (Novolog Insulin Pen) NOVOLOG *MILD* ALGORITHM WITH MEALS BEDTIME SC Last administered on 03/07/19 09:09; Admin Dose 1 UNIT; Start 03/03/19 at 21:00 Meclizine HCl (Antivert) 12.5 mg BID PRN PO vertigo/dizziness; Start 03/05/19 at 15:30 Metoprolol Tartrate (Lopressor) 12.5 mg BID PO Last administered on 03/08/19 21:40; Admin Dose 12.5 MG; Start 03/07/19 at 14:00 Potassium Chloride (Klor-Con 20) 20 meq DAILY PO Last administered on 03/09/19 09:04; Admin Dose 20 MEQ; Start 03/09/19 at 09:00 Methylphenidate HCl (Ritalin) 5 mg DAILY PO Last administered on 03/09/19 09:03; Admin Dose 5 MG; Start 03/09/19 at 09:00 Famotidine (Pepcid) 20 mg Q12 PO Last administered on 03/09/19 09:04; Admin Dose 20 MG; Start 03/08/19 at 21:00 Assessment/Plan Assessment/Plan (Daily) IMP: 1. s/p Hypoxemic Respiratory Failure:s/p pneumonia 3. EILEEN 4. HTN 5. DM RECS: 1. Aspiration precautions 2. PT/Ot 3. BDs prn 4. Continue diuresis SIMRAN FALK MD Mar 09, 2019 14:16
--- NOTE | 2019-03-09 14:17 | PN ---
Date/Time of Note Date/Time of Note DATE: 03/09/19 TIME: 14:14 Assessment/Plan VTE Prophylaxis Risk score (from Ns)>0 risk: 7 SCD applied (from [facility] [place]): No SCD contraindicated: other Pharmacological prophylaxis: LMWH Lines/Catheters IV Catheter Type (from [facility] PICC Line Central line still needed: Yes Urinary Cath still in place: No Assessment/Plan Hospital Course 1. Severe altered mental status likely secondary to metabolic encephalopathy, likely secondary to CO2 narcosis. pt is alert, oriented 2 2. Hypoxic respiratory failure, resolving, still on supplemental oxygen 3. Respiratory alkalosis, no ABG today 4. Morbid obesity. 5. Down syndrome. 6. Hypertension, now normotensive. 7. Diabetes mellitus type II blood sugar controled. 8. History of ventral hernia repair. 9. Leukocytosis secondary to pneumonia, resolved 10. Hypothyroidism 11. KIRIT, more likely due to sepsis, resolved Assessment/Plan -had lengthy conv. mother -desaturates -no progress with PT -pt is on nasal cannula -check ABG RA -dc planning Result Diagram: 03/08/19 1349 Results 24hrs Laboratory Tests Test 03/08/19 17:28 03/08/19 17:42 03/08/19 21:25 03/09/19 08:01 Bedside Glucose 124 104 119 Urine Color YELLOW Urine Clarity CLEAR Urine pH 7.0 Urine Specific 1.010 [place] Urine Ketones NEGATIVE Urine Nitrite NEGATIVE Urine Bilirubin NEGATIVE Urine Urobilinogen NEGATIVE Urine Leukocyte NEGATIVE Esterase Urine Microscopic 1 RBC Urine Microscopic 0 WBC Urine Hemoglobin 1+ H Urine Glucose NEGATIVE Urine Total Protein NEGATIVE Test 03/09/19 12:04 Bedside Glucose 115 Subjective 24 Hr Interval Summary Free Text/Dictation wants to go home Respiratory: shortness of breath Exam/Review of Systems Exam Vitals Vital Signs Date Temp Pulse Resp B/P (MAP) Pulse Ox O2 O2 Flow FiO2 Time Delivery Rate 03/09/19 97.9 111 16 107/53 90 Nasal 14:03 (71) Cannula 16 03/09/19 2.0 12:00 03/09/19 21 07:48 Intake and Output 03/08/19 03/08/19 03/09/19 1515:00 23:00 07:00 IntakeIntake Total 450 ml 200 ml BalanceBalance 450 ml 200 ml Exam more awake, participate conversation. No acute distress, no events overnight. Eyes: anicteric, EOM's intact, no pallor Nose: no rhinorrhea Neck: supple, no thyromegaly, no carotid bruits, short neck Lungs: clear bilaterally, decreased. CVS: regular rate and rhythm, no murmurs Abdomen: soft, bowel sounds present, ventral hernia Rectal: differed. External genitalia: no lesions. Extremities: no edema, DP pulses are palpable Neuro: alert and oriented x 2 Gait: unknown, pt refused to walk Motor strenght: 5+/5+ Sensory exam: normal Deep tendon reflexes: normal, [place] reflexes are absent bilaterally Skin: no lesions Results Results 24hrs Laboratory Tests Test 03/08/19 17:28 03/08/19 17:42 03/08/19 21:25 03/09/19 08:01 Bedside Glucose 124 104 119 Urine Color YELLOW Urine Clarity CLEAR Urine pH 7.0 Urine Specific 1.010 [place] Urine Ketones NEGATIVE Urine Nitrite NEGATIVE Urine Bilirubin NEGATIVE Urine Urobilinogen NEGATIVE Urine Leukocyte NEGATIVE Esterase Urine Microscopic 1 RBC Urine Microscopic 0 WBC Urine Hemoglobin 1+ H Urine Glucose NEGATIVE Urine Total Protein NEGATIVE Test 03/09/19 12:04 Bedside Glucose 115 Medications Medication Current Medications IV Flush (NS 3 ml) 3 ml PER PROTOCOL IV ; Start 02/12/19 at 15:30 Ondansetron HCl (Zofran Inj) 4 mg Q6H PRN IV NAUSEA/VOMITING; Start 02/12/19 at 15:30 Acetaminophen (Tylenol Tab) 650 mg Q6H PRN PO .PAIN 1-3 OR TEMP Last administered on 03/04/19at 18:11; Admin Dose 650 MG; Start 02/12/19 at 15:30 Docusate Sodium (Colace) 100 mg Q12H PRN PO .CONSTIPATION Last administered on 02/21/19at 14:05; Admin Dose 100 MG; Start 02/12/19 at 15:30; Status Hold Enoxaparin Sodium (Lovenox) 40 mg DAILY SC Last administered on 03/09/19at 09:04; Admin Dose 40 MG; Start 02/13/19 at 09:00 Levothyroxine Sodium (Synthroid) 88 mcg BEFORE BREAKFAST PO Last administered on 03/09/19at 06:40; Admin Dose 88 MCG; Start 02/15/19 at 07:00 Miscellaneous Information 1 ea NOTE XX ; Start 02/14/19 at 10:30 Glucose (Glutose) 15 gm Q15M PRN PO DECREASED GLUCOSE; Start 02/14/19 at 10:30 Glucose (Glutose) 22.5 gm Q15M PRN PO DECREASED GLUCOSE; Start 02/14/19 at 10:30 Dextrose (D50w Syringe) 25 ml Q15M PRN IV DECREASED GLUCOSE; Start 02/14/19 at 10:30 Dextrose (D50w Syringe) 50 ml Q15M PRN IV DECREASED GLUCOSE; Start 02/14/19 at 10:30 Glucagon (Glucagen) 1 mg Q15M PRN IM DECREASED GLUCOSE; Start 02/14/19 at 10:30 Glucose (Glutose) 15 gm Q15M PRN BUCCAL DECREASED GLUCOSE; Start 02/14/19 at 10:30 Docusate Sodium (Colace Liquid Cup) 100 mg BID NGT Last administered on 02/24/19at 21:15; Admin Dose 100 MG; Start 02/15/19 at 11:00; Status Hold Bisacodyl (Dulcolax Supp) 10 mg DAILY PRN [place] CONSTIPATION Last administered on 02/21/19at 14:06; Admin Dose 10 MG; Start 02/15/19 at 11:00 IV Flush (NS 10 ml) 10 ml PRN PRN IV IV PROTOCOL; Start 02/18/19 at 15:30 Albuterol/ Ipratropium (Duoneb) 3 ml Q6H RESP THERAPY HHN Last administered on 03/09/19at 07:37; Admin Dose 3 ML; Start 03/01/19 at 14:00 Furosemide (Lasix) 40 mg DAILY IV Last administered on 03/08/19at 10:41; Admin Dose 40 MG; Start 03/03/19 at 09:00 Insulin Aspart (Novolog Insulin Pen) NOVOLOG *MILD* ALGORITHM WITH MEALS BEDTIME SC Last administered on 03/07/19at 09:09; Admin Dose 1 UNIT; Start 03/03/19 at 21:00 Meclizine HCl (Antivert) 12.5 mg BID PRN PO vertigo/dizziness; Start 03/05/19 at 15:30 Metoprolol Tartrate (Lopressor) 12.5 mg BID PO Last administered on 03/08/19at 21:40; Admin Dose 12.5 MG; Start 03/07/19 at 14:00 Potassium Chloride (Klor-Con 20) 20 meq DAILY PO Last administered on 03/09/19 09:04; Admin Dose 20 MEQ; Start 03/09/19 at 09:00 Methylphenidate HCl (Ritalin) 5 mg DAILY PO Last administered on 03/09/19 09:03; Admin Dose 5 MG; Start 03/09/19 at 09:00 Famotidine (Pepcid) 20 mg Q12 PO Last administered on 03/09/19at 09:04; Admin Dose 20 MG; Start 03/08/19 at 21:00 CARY GIPSON NP Mar 09, 2019 14:17
[2019-03-09] MEDS ORDERED: FUROSEMIDE 40 MG INJ IV ONE (16:00)
[2019-03-09] MEDS ORDERED: ALTEPLASE (CATHFLO) 2 MG INJ CATHETER ONE (18:00)
[2019-03-10] VITALS (15 sets, daily range): BP systolic 83–119; BP diastolic 44–76; PULSE 74–118; RESP 17–31; Ht 147.3 cm; Wt 93.0 kg
[2019-03-10] MEDS: ALBUTEROL/IPRATROPIUM (NEB) 3 ML AMP HHN SCH ×3 (01:25→20:06)
[2019-03-10] MEDS: LEVOTHYROXINE 88 MCG TAB PO SCH (06:27)
[2019-03-10] MEDS: INSULIN ASPART [NOVOLOG] 3 ML PEN SC SCH ×4 (08:00→21:00)
[2019-03-10] MEDS: FAMOTIDINE 20 MG TAB PO SCH ×2 (08:59→21:46)
[2019-03-10] MEDS: POTASSIUM CHLORIDE (SR) 20 MEQ TAB PO SCH (08:59)
[2019-03-10] MEDS: METOPROLOL 25 MG TAB PO SCH ×2 (09:01→23:11)
[2019-03-10] MEDS: FUROSEMIDE 40 MG INJ IV SCH (09:02)
--- NOTE | 2019-03-10 09:06 | RADRPT ---
Vent Rate: 116 bpm RR Interval: 516 msec FL Interval: 118 msec QRS Duration: 89 msec QT Interval: 331 msec QTC Interval: 461 msec P-R-T [place]: 26 - 103 - -14 degrees Sinus tachycardia...rate> 99 Electronically Signed By: Jostin Bob
[2019-03-10] MEDS: ENOXAPARIN 40 MG/0.4 ML SYG SC SCH (09:19)
--- NOTE | 2019-03-10 11:44 | CONS ---
Consult Date/Type/Reason Admit Date/Time Feb 12, 2019 at 12:24 Initial Consult Date Type of Consult Pulmonary Requesting Provider: LORNA LYONS MD Date/Time of Note DATE: 03/10/19 TIME: 11:43 Subjective Increasing oxygen requirements little more short of breath than yesterday. Objective Vital Signs Date Temp Pulse Resp B/P (MAP) Pulse Ox O2 O2 Flow FiO2 Time Delivery Rate 03/10/19 98.2 106 20 119/65 97 Nasal 4.0 11:19 (83) Cannula 03/10/19 35 03:08 Intake and Output 03/09/19 03/09/19 03/10/19 1515:00 23:00 07:00 IntakeIntake Total 1000 ml 500 ml BalanceBalance 1000 ml 500 ml Exam NECK: Supple. No JVD or lymphadenopathy. CARDIAC EXAM: S1, S2. No added sounds or murmurs. CHEST: clear bilaterally, No added sounds, rales or wheezes ABDOMEN: Soft, nontender. No guarding or rebound. EXTREMITIES: No cyanosis, clubbing or edema. NEUROLOGIC: Generalized weakness. Vent Setting Ventilator Support Mode: CPAP, PS Fraction of Inspired Oxygen pe: 21 Positive End Expiratory Pressu: 5.0 Results/Medications Result Diagram: 03/10/19 0509 03/10/19 0509 Results 24 hrs Laboratory Tests Test 03/09/19 12:04 03/09/19 14:12 03/09/19 17:02 03/09/19 17:21 Bedside Glucose 115 197 Blood Gas Blood arterial Specimen Source Arterial Blood 03/09/2019 5:57:4 Date Drawn 7 PM Arterial Blood pH 7.480 H (Temp corrected) Arterial Blood 37.7 pCO2 (Temp correct) Arterial Blood 49.7 *L pO2 (Temp corrected) Arterial Blood 27.4 H HCO3 Arterial Blood 3.9 H Base Excess Arterial Blood 86.0 L Oxygen Saturation [place] Test N/A Arterial Blood Right Brachial Gas Puncture Site Arterial 0.5 Blood Carboxyhemo globin Arterial Blood 0.3 Methemoglobin Blood Gas A-a O2 54.9 H Differential Oxyhemoglobin 85.3 L Percent Blood Gas 37.0 Temperature Blood Gas ROOM AIR Modality FiO2 21.0 Blood Gas Armand MOON RN Critical Value Read Back Blood Gas Marcello Notified Whom Blood Gas 03/09/2019 6:09:4 Notified Time 8 PM Troponin I 0.133 *H Test 03/09/19 21:01 03/10/19 05:09 03/10/19 07:57 Bedside Glucose 116 109 White Blood Count 7.1 # Red Blood Count 5.09 Hemoglobin 14.1 Hematocrit 45.2 Mean Corpuscular 88.8 Volume Mean Corpuscular 27.7 L Hemoglobin Mean Corpuscular 31.2 L Hemoglobin Concen t Red Cell 21.1 H Distribution Width Platelet Count 162 Mean Platelet 9.9 Volume Immature 1.800 H Granulocytes % Neutrophils % 71.3 Lymphocytes % 16.5 Monocytes % 8.5 Eosinophils % 1.1 Basophils % 0.8 Nucleated Red 0.0 Blood Cells % Immature 0.130 H Granulocytes # Neutrophils # 5.1 Lymphocytes # 1.2 Monocytes # 0.6 Eosinophils # 0.1 Basophils # 0.1 Nucleated Red 0.0 Blood Cells # Sodium Level 138 Potassium Level 3.6 Chloride Level 102 Carbon Dioxide 27 Level Anion Gap 9 Blood Urea 14 Nitrogen Creatinine 0.55 Est Glomerular > 60 Filtrat Rate mL/min Glucose Level 118 Calcium Level 9.0 Troponin I 0.261 *H Medications Current Medications IV Flush (NS 3 ml) 3 ml PER PROTOCOL IV ; Start 02/12/19 at 15:30 Ondansetron HCl (Zofran Inj) 4 mg Q6H PRN IV NAUSEA/VOMITING; Start 02/12/19 at 15:30 Acetaminophen (Tylenol Tab) 650 mg Q6H PRN PO .PAIN 1-3 OR TEMP Last administered on 03/04/19at 18:11; Admin Dose 650 MG; Start 02/12/19 at 15:30 Enoxaparin Sodium (Lovenox) 40 mg DAILY SC Last administered on 03/10/19at 09:19; Admin Dose 40 MG; Start 02/13/19 at 09:00 Levothyroxine Sodium (Synthroid) 88 mcg BEFORE BREAKFAST PO Last administered on 03/10/19at 06:27; Admin Dose 88 MCG; Start 02/15/19 at 07:00 Miscellaneous Information 1 ea NOTE XX ; Start 02/14/19 at 10:30 Glucose (Glutose) 15 gm Q15M PRN PO DECREASED GLUCOSE; Start 02/14/19 at 10:30 Glucose (Glutose) 22.5 gm Q15M PRN PO DECREASED GLUCOSE; Start 02/14/19 at 10:30 Dextrose (D50w Syringe) 25 ml Q15M PRN IV DECREASED GLUCOSE; Start 02/14/19 at 10:30 Dextrose (D50w Syringe) 50 ml Q15M PRN IV DECREASED GLUCOSE; Start 02/14/19 at 10:30 Glucagon (Glucagen) 1 mg Q15M PRN IM DECREASED GLUCOSE; Start 02/14/19 at 10:30 Glucose (Glutose) 15 gm Q15M PRN BUCCAL DECREASED GLUCOSE; Start 02/14/19 at 10:30 Bisacodyl (Dulcolax Supp) 10 mg DAILY PRN [place] CONSTIPATION Last administered on 02/21/19at 14:06; Admin Dose 10 MG; Start 02/15/19 at 11:00 IV Flush (NS 10 ml) 10 ml PRN PRN IV IV PROTOCOL; Start 02/18/19 at 15:30 Albuterol/ Ipratropium (Duoneb) 3 ml Q6H RESP THERAPY HHN Last administered on 03/10/19at 08:52; Admin Dose 3 ML; Start 03/01/19 at 14:00 Furosemide (Lasix) 40 mg DAILY IV Last administered on 03/10/19at 09:02; Admin Dose 40 MG; Start 03/03/19 at 09:00 Insulin Aspart (Novolog Insulin Pen) NOVOLOG *MILD* ALGORITHM WITH MEALS BEDTIME SC Last administered on 03/09/19at 17:27; Admin Dose 2 UNIT; Start at 21:00 Meclizine HCl (Antivert) 12.5 mg BID PRN PO vertigo/dizziness; Start 03/05/19 at 15:30 Metoprolol Tartrate (Lopressor) 12.5 mg BID PO Last administered on 03/10/19at 09:01; Admin Dose 12.5 MG; Start 03/07/19 at 14:00 Potassium Chloride (Klor-Con 20) 20 meq DAILY PO Last administered on 03/10/19at 08:59; Admin Dose 20 MEQ; Start 03/09/19 at 09:00 Famotidine (Pepcid) 20 mg Q12 PO Last administered on 03/10/19at 08:59; Admin Dose 20 MG; Start 03/08/19 at 21:00 Aspirin (Halfprin) 81 mg DAILY PO ; Start 03/10/19 at 12:00 Assessment/Plan Hospital Course (Demo Recall) IMP: 1. s/p Hypoxemic Respiratory Failure:s/p pneumonia. Repeat chest x-ray rule out worsening CHF versus aspiration 3. EILEEN 4. HTN 5. DM RECS: 1. Aspiration precautions 2. PT/Ot 3. BDs prn 4. Continue diuresis MARY ANN MCKEON MD, [facility] Mar 10, 2019 11:44
--- NOTE | 2019-03-10 11:48 | PN ---
Date/Time of Note Date/Time of Note DATE: 03/10/19 TIME: 11:42 Assessment/Plan VTE Prophylaxis Risk score (from Ns)>0 risk: 7 SCD applied (from Ns): No SCD contraindicated: low risk/ambulating Pharmacological prophylaxis: NA/contraindicated Pharm contraindication: low risk/ambulating Lines/Catheters IV Catheter Type (from [facility]): PICC Line Central line still needed: Yes Urinary Cath still in place: No Assessment/Plan Assessment/Plan #Positive troponin with an episode of chest pain and shortness of breath, EKG showed sinus tachycardia, ABG showed marked hypoxia even though the chest x-ray is not showing much disease . She has been nonambulatory # Severe altered mental status likely secondary to metabolic encephalopathy, likely secondary to CO2 narcosis. pt is alert, oriented 2 #. Hypoxic respiratory failure, resolving, still on supplemental oxygen #. Respiratory alkalosis, no ABG today #. Morbid obesity. # Down syndrome. #. Hypertension, now normotensive. #. Diabetes mellitus type II blood sugar controled. # History of ventral hernia repair. #. Leukocytosis secondary to pneumonia, resolved #. Hypothyroidism 11. KIRIT, more likely due to sepsis, resolved Assessment/Plan -Get CT of the chest to rule out PE, given elevated troponin tachycardia and patient's nonambulatory status` and hypoxia, currently on 4 litres - incentive spirometry for atelactalsis - cw asa/lovenox/MTP - Lipid panel - fu cards/pul recs - dc ritalin -c/w low dose lasix - cw levothyroxine supplement - GI Famotidine BID - dvt Prophylaxis Lovenox Result Diagram: 03/10/19 0509 03/10/19 0509 Results 24hrs Laboratory Tests Test 03/09/19 12:04 03/09/19 14:12 03/09/19 17:02 03/09/19 17:21 Bedside Glucose 115 197 Blood Gas Blood arterial Specimen Source Arterial Blood 03/09/2019 5:57:4 Date Drawn 7 PM Arterial Blood pH 7.480 H (Temp corrected) Arterial Blood 37.7 pCO2 (Temp correct) Arterial Blood 49.7 *L pO2 (Temp corrected) Arterial Blood 27.4 H HCO3 Arterial Blood 3.9 H Base Excess Arterial Blood 86.0 L Oxygen Saturation Corwin Test N/A Arterial Blood Right Brachial Gas Puncture Site Arterial 0.5 Blood Carboxyhemo globin Arterial Blood 0.3 Methemoglobin Blood Gas A-a O2 54.9 H Differential Oxyhemoglobin 85.3 L Percent Blood Gas 37.0 Temperature Blood Gas ROOM AIR Modality FiO2 21.0 Blood Gas Armand MOON RN Critical Value Read Back Blood Gas Marcello Notified Whom Blood Gas 03/09/2019 6:09:4 Notified Time 8 PM Troponin I 0.133 *H Test 03/09/19 21:01 03/10/19 05:09 03/10/19 07:57 Bedside Glucose 116 109 White Blood Count 7.1 # Red Blood Count 5.09 Hemoglobin 14.1 Hematocrit 45.2 Mean Corpuscular 88.8 Volume Mean Corpuscular 27.7 L Hemoglobin Mean Corpuscular 31.2 L Hemoglobin Concen t Red Cell 21.1 H Distribution Width Platelet Count 162 Mean Platelet 9.9 Volume Immature 1.800 H Granulocytes % Neutrophils % 71.3 Lymphocytes % 16.5 Monocytes % 8.5 Eosinophils % 1.1 Basophils % 0.8 Nucleated Red 0.0 Blood Cells % Immature 0.130 H Granulocytes # Neutrophils # 5.1 Lymphocytes # 1.2 Monocytes # 0.6 Eosinophils # 0.1 Basophils # 0.1 Nucleated Red 0.0 Blood Cells # Sodium Level 138 Potassium Level 3.6 Chloride Level 102 Carbon Dioxide 27 Level Anion Gap 9 Blood Urea 14 Nitrogen Creatinine 0.55 Est Glomerular > 60 Filtrat Rate mL/min Glucose Level 118 Calcium Level 9.0 Troponin I 0.261 *H Subjective 24 Hr Interval Summary Free Text/Dictation Patient had a episode yesterday where patient was having chest pain and short of breath transferred to telemetry Exam/Review of Systems Exam Vitals Vital Signs Date Temp Pulse Resp B/P (MAP) Pulse Ox O2 O2 Flow FiO2 Time Delivery Rate 03/10/19 98.2 106 20 119/65 97 Nasal 4.0 11:19 (83) Cannula 03/10/19 35 03:08 Intake and Output 03/09/19 03/09/19 03/10/19 1515:00 23:00 07:00 IntakeIntake Total 1000 ml 500 ml BalanceBalance 1000 ml 500 ml Exam thick neck. General awake alert oriented somewhat anxious clear To auscultate Heart regular rate rhythm abdomen: obese, +soft small extremities, 1+edema Neuro exam nonfocal Results Results 24hrs Laboratory Tests Test 03/09/19 12:04 03/09/19 14:12 03/09/19 17:02 03/09/19 17:21 Bedside Glucose 115 197 Blood Gas Blood arterial Specimen Source Arterial Blood 03/09/2019 5:57:4 Date Drawn 7 PM Arterial Blood pH 7.480 H (Temp corrected) Arterial Blood 37.7 pCO2 (Temp correct) Arterial Blood 49.7 *L pO2 (Temp corrected) Arterial Blood 27.4 H HCO3 Arterial Blood 3.9 H Base Excess Arterial Blood 86.0 L Oxygen Saturation Corwin Test N/A Arterial Blood Right Brachial Gas Puncture Site Arterial 0.5 Blood Carboxyhemo globin Arterial Blood 0.3 Methemoglobin Blood Gas A-a O2 54.9 H Differential Oxyhemoglobin 85.3 L Percent Blood Gas 37.0 Temperature Blood Gas ROOM AIR Modality FiO2 21.0 Blood Gas Armand MOON RN Critical Value Read Back Blood Gas Marcello Notified Whom Blood Gas 03/09/2019 6:09:4 Notified Time 8 PM Troponin I 0.133 *H Test 03/09/19 21:01 03/10/19 05:09 03/10/19 07:57 Bedside Glucose 116 109 White Blood Count 7.1 # Red Blood Count 5.09 Hemoglobin 14.1 Hematocrit 45.2 Mean Corpuscular 88.8 Volume Mean Corpuscular 27.7 L Hemoglobin Mean Corpuscular 31.2 L Hemoglobin Concen t Red Cell 21.1 H Distribution Width Platelet Count 162 Mean Platelet 9.9 Volume Immature 1.800 H Granulocytes % Neutrophils % 71.3 Lymphocytes % 16.5 Monocytes % 8.5 Eosinophils % 1.1 Basophils % 0.8 Nucleated Red 0.0 Blood Cells % Immature 0.130 H Granulocytes # Neutrophils # 5.1 Lymphocytes # 1.2 Monocytes # 0.6 Eosinophils # 0.1 Basophils # 0.1 Nucleated Red 0.0 Blood Cells # Sodium Level 138 Potassium Level 3.6 Chloride Level 102 Carbon Dioxide 27 Level Anion Gap 9 Blood Urea 14 Nitrogen Creatinine 0.55 Est Glomerular > 60 Filtrat Rate mL/min Glucose Level 118 Calcium Level 9.0 Troponin I 0.261 *H Medications Medication Current Medications IV Flush (NS 3 ml) 3 ml PER PROTOCOL IV ; Start 02/12/19 at 15:30 Ondansetron HCl (Zofran Inj) 4 mg Q6H PRN IV NAUSEA/VOMITING; Start 02/12/19 at 15:30 Acetaminophen (Tylenol Tab) 650 mg Q6H PRN PO .PAIN 1-3 OR TEMP Last administered on 03/04/19at 18:11; Admin Dose 650 MG; Start 02/12/19 at 15:30 Enoxaparin Sodium (Lovenox) 40 mg DAILY SC Last administered on 03/10/19 09:19; Admin Dose 40 MG; Start 02/13/19 at 09:00 Levothyroxine Sodium (Synthroid) 88 mcg BEFORE BREAKFAST PO Last administered on 03/10/19 06:27; Admin Dose 88 MCG; Start 02/15/19 at 07:00 Miscellaneous Information 1 ea NOTE XX ; Start 02/14/19 at 10:30 Glucose (Glutose) 15 gm Q15M PRN PO DECREASED GLUCOSE; Start 02/14/19 at 10:30 Glucose (Glutose) 22.5 gm Q15M PRN PO DECREASED GLUCOSE; Start 02/14/19 at 10:30 Dextrose (D50w Syringe) 25 ml Q15M PRN IV DECREASED GLUCOSE; Start 02/14/19 at 1 0:30 Dextrose (D50w Syringe) 50 ml Q15M PRN IV DECREASED GLUCOSE; Start 02/14/19 at 10:30 Glucagon (Glucagen) 1 mg Q15M PRN IM DECREASED GLUCOSE; Start 02/14/19 at 10:30 Glucose (Glutose) 15 gm Q15M PRN BUCCAL DECREASED GLUCOSE; Start 02/14/19 at 10:30 Bisacodyl (Dulcolax Supp) 10 mg DAILY PRN [place] CONSTIPATION Last administered on 02/21/19at 14:06; Admin Dose 10 MG; Start 02/15/19 at 11:00 IV Flush (NS 10 ml) 10 ml PRN PRN IV IV PROTOCOL; Start 02/18/19 at 15:30 Albuterol/ Ipratropium (Duoneb) 3 ml Q6H RESP THERAPY HHN Last administered on 03/10/19at 08:52; Admin Dose 3 ML; Start 03/01/19 at 14:00 Furosemide (Lasix) 40 mg DAILY IV Last administered on 03/10/19at 09:02; Admin Dose 40 MG; Start 03/03/19 at 09:00 Insulin Aspart (Novolog Insulin Pen) NOVOLOG *MILD* ALGORITHM WITH MEALS BEDTIME SC Last administered on 03/09/19 17:27; Admin Dose 2 UNIT; Start 03/03/19 at 21:00 Meclizine HCl (Antivert) 12.5 mg BID PRN PO vertigo/dizziness; Start 03/05/19 at 15:30 Metoprolol Tartrate (Lopressor) 12.5 mg BID PO Last administered on 03/10/19at 09:01; Admin Dose 12.5 MG; Start 03/07/19 at 14:00 Potassium Chloride (Klor-Con 20) 20 meq DAILY PO Last administered on 03/10/19at 08:59; Admin Dose 20 MEQ; Start 03/09/19 at 09:00 Famotidine (Pepcid) 20 mg Q12 PO Last administered on 03/10/19 08:59; Admin Dose 20 MG; Start 03/08/19 at 21:00 Aspirin (Halfprin) 81 mg DAILY PO ; Start 03/10/19 at 12:00; Status UNV LORNA LYONS MD Mar 10, 2019 11:48
--- NOTE | 2019-03-10 13:15 | CONS ---
Assessment/Plan Assessment/Plan Hospital Course (Demo Recall) IMPRESSION: 1. Congestive heart failure-diastolic acute on chronic 2. Lower extremity edema, assess for congestive heart failure.-preserved EF 3. Tachycardia, improved, status post intubation, likely due to respiratory distress. 4. Abnormal electrocardiogram with right axis deviation and T-wave flattening. -neg trop x 3 5. Down syndrome. 6. Hypothyroidism. 7. Diabetes mellitus. 8. Obstructive sleep apnea. 9. hypotension-improved overall and stable 10. Resp distress-recurrent with transfer to tele, ? asp 11.encephalopathy 12. Fevers 14. positive troponin-minimal in the setting of resp distress and now trended negative Recc: -Now transferred back to tele -Continue lasix diuresis daily and follow volume status closely with clear lungs by CXR -s/p course of abx, f/u cx data -continue low dose BB as tolerted only -Continue bronchodilators -continue asa -Continue bronchodilators -pnding chest CT -PRN meclizine Consultation Date/Type/Reason Admit Date/Time Feb 12, 2019 at 12:24 Initial Consult Date 02/12/19 Type of Consult Cardiology Reason for Consultation positive troponin Requesting Provider: LORNA LYONS MD Date/Time of Note DATE: 03/10/19 TIME: 13:11 Exam/Review of Systems Vital Signs Vitals Vital Signs Date Temp Pulse Resp B/P (MAP) Pulse Ox O2 O2 Flow FiO2 Time Delivery Rate 03/10/19 98.2 106 20 119/65 97 Nasal 4.0 11:19 (83) Cannula 03/10/19 35 03:08 Intake and Output 03/09/19 03/09/19 03/10/19 1515:00 23:00 07:00 IntakeIntake Total 1000 ml 500 ml BalanceBalance 1000 ml 500 ml Exam Exam Review of Systems: CONSTITUTIONAL: No fevers, chills. PULMONARY: recurrent sob CARDIOVASCULAR: No chest pain/palpitations GASTROINTESTINAL: No nausea/vomiting. GENITOURINARY: No hematuria/dysuria. MUSCULOSKELETAL: No myagias/arthalgias. PSYCHIATRIC: The patient denies depression. NEUROLOGIC: No weakness Constitutional: alert Psych: no complaints Head: normocephalic ENMT: mucosa pink and moist Neck: supple, jvd (9 cm water) Respiratory: diminished breath sounds (at bases/B) Cardiovascular: regular rate and rhythm Gastrointestinal: soft, non-tender Musculoskeletal: muscle tone (normal) Extremities: edema (trace/B LE) Labs Result Diagram: 03/10/19 0509 03/10/19 0509 Results 24hrs Laboratory Tests Test 03/09/19 14:12 03/09/19 17:02 03/09/19 17:21 03/09/19 21:01 Blood Gas Blood arterial Specimen Source Arterial Blood 03/09/2019 5:57:4 Date Drawn 7 PM Arterial Blood pH 7.480 H (Temp corrected) Arterial Blood 37.7 pCO2 (Temp correct) Arterial Blood 49.7 *L pO2 (Temp corrected) Arterial Blood 27.4 H HCO3 Arterial Blood 3.9 H Base Excess Arterial Blood 86.0 L Oxygen Saturation Corwin Test N/A Arterial Blood Right Brachial Gas Puncture Site Arterial 0.5 Blood Carboxyhemo globin Arterial Blood 0.3 Methemoglobin Blood Gas A-a O2 54.9 H Differential Oxyhemoglobin 85.3 L Percent Blood Gas 37.0 Temperature Blood Gas ROOM AIR Modality FiO2 21.0 Blood Gas Armand MOON RN Critical Value Read Back Blood Gas Marcello Notified Whom Blood Gas 03/09/2019 6:09:4 Notified Time 8 PM Troponin I 0.133 *H Bedside Glucose 197 116 Test 03/10/19 05:09 03/10/19 07:57 03/10/19 10:55 03/10/19 12:24 White Blood Count 7.1 # Red Blood Count 5.09 Hemoglobin 14.1 Hematocrit 45.2 Mean Corpuscular 88.8 Volume Mean Corpuscular 27.7 L Hemoglobin Mean Corpuscular 31.2 L Hemoglobin Concen t Red Cell 21.1 H Distribution Width Platelet Count 162 Mean Platelet 9.9 Volume Immature 1.800 H Granulocytes % Neutrophils % 71.3 Lymphocytes % 16.5 Monocytes % 8.5 Eosinophils % 1.1 Basophils % 0.8 Nucleated Red 0.0 Blood Cells % Immature 0.130 H Granulocytes # Neutrophils # 5.1 Lymphocytes # 1.2 Monocytes # 0.6 Eosinophils # 0.1 Basophils # 0.1 Nucleated Red 0.0 Blood Cells # Sodium Level 138 Potassium Level 3.6 Chloride Level 102 Carbon Dioxide 27 Level Anion Gap 9 Blood Urea 14 Nitrogen Creatinine 0.55 Est Glomerular > 60 Filtrat Rate mL/min Glucose Level 118 Calcium Level 9.0 Troponin I 0.261 *H 0.105 Bedside Glucose 109 118 Medications Medications Current Medications IV Flush (NS 3 ml) 3 ml PER PROTOCOL IV ; Start 02/12/19 at 15:30 Ondansetron HCl (Zofran Inj) 4 mg Q6H PRN IV NAUSEA/VOMITING; Start 02/12/19 at 15:30 Acetaminophen (Tylenol Tab) 650 mg Q6H PRN PO .PAIN 1-3 OR TEMP Last administered on 03/04/19at 18:11; Admin Dose 650 MG; Start 02/12/19 at 15:30 Enoxaparin Sodium (Lovenox) 40 mg DAILY SC Last administered on 03/10/19at 09:19; Admin Dose 40 MG; Start 02/13/19 at 09:00 Levothyroxine Sodium (Synthroid) 88 mcg BEFORE BREAKFAST PO Last administered on 03/10/19at 06:27; Admin Dose 88 MCG; Start 02/15/19 at 07:00 Miscellaneous Information 1 ea NOTE XX ; Start 02/14/19 at 10:30 Glucose (Glutose) 15 gm Q15M PRN PO DECREASED GLUCOSE; Start 02/14/19 at 10:30 Glucose (Glutose) 22.5 gm Q15M PRN PO DECREASED GLUCOSE; Start 02/14/19 at 10:30 Dextrose (D50w Syringe) 25 ml Q15M PRN IV DECREASED GLUCOSE; Start 02/14/19 at 10:30 Dextrose (D50w Syringe) 50 ml Q15M PRN IV DECREASED GLUCOSE; Start 02/14/19 at 10:30 Glucagon (Glucagen) 1 mg Q15M PRN IM DECREASED GLUCOSE; Start 02/14/19 at 10:30 Glucose (Glutose) 15 gm Q15M PRN BUCCAL DECREASED GLUCOSE; Start 02/14/19 at 10:30 Bisacodyl (Dulcolax Supp) 10 mg DAILY PRN [place] CONSTIPATION Last administered on 02/21/19at 14:06; Admin Dose 10 MG; Start 02/15/19 at 11:00 IV Flush (NS 10 ml) 10 ml PRN PRN IV IV PROTOCOL; Start 02/18/19 at 15:30 Albuterol/ Ipratropium (Duoneb) 3 ml Q6H RESP THERAPY HHN Last administered on 03/10/19at 08:52; Admin Dose 3 ML; Start 03/01/19 at 14:00 Furosemide (Lasix) 40 mg DAILY IV Last administered on 03/10/19 09:02; Admin Dose 40 MG; Start 03/03/19 at 09:00 Insulin Aspart (Novolog Insulin Pen) NOVOLOG *MILD* ALGORITHM WITH MEALS BEDTIME SC Last administered on 03/09/19 17:27; Admin Dose 2 UNIT; Start 03/03/19 at 21:00 Meclizine HCl (Antivert) 12.5 mg BID PRN PO vertigo/dizziness; Start 03/05/19 at 15:30 Metoprolol Tartrate (Lopressor) 12.5 mg BID PO Last administered on 03/10/19 09:01; Admin Dose 12.5 MG; Start 03/07/19 at 14:00 Potassium Chloride (Klor-Con 20) 20 meq DAILY PO Last administered on 03/10/19 08:59; Admin Dose 20 MEQ; Start 03/09/19 at 09:00 Famotidine (Pepcid) 20 mg Q12 PO Last administered on 03/10/19 08:59; Admin Dose 20 MG; Start 03/08/19 at 21:00 Aspirin (Halfprin) 81 mg DAILY PO ; Start 03/10/19 at 12:00 SHARIF TORRES Mar 10, 2019 13:15
[2019-03-10] MEDS: ASPIRIN (EC) 81 MG TAB PO SCH (14:44)
[2019-03-10] MEDS ORDERED: IOHEXOL 100 ML ONE (16:33)
[2019-03-10] MEDS ORDERED: SOD CHLORIDE 0.9% 100 ML ONE (16:33)
[2019-03-10] MEDS ORDERED: HEPARIN 1000 UNITS/ML 10 ML INJ IV ONE ×2 (19:00)
[2019-03-10] MEDS ORDERED: HEPARIN 1000 UNITS/ML 10 ML INJ IV PRN ×4 (19:00→22:00)
[2019-03-10] MEDS: HEPARIN 1000 UNITS/ML 10 ML INJ IV PRN (22:19)
[2019-03-10] MEDS: HEPARIN 25000 UNITS/250 ML 250 ML IV SCH (22:23)
[2019-03-11] VITALS (28 sets, daily range): BP systolic 89–124; BP diastolic 38–106; PULSE 85–115; RESP 16–46
[2019-03-11] MEDS: ALBUTEROL/IPRATROPIUM (NEB) 3 ML AMP HHN SCH ×4 (01:40→20:47)
[2019-03-11] MEDS: LEVOTHYROXINE 88 MCG TAB PO SCH (06:27)
[2019-03-11] MEDS: INSULIN ASPART [NOVOLOG] 3 ML PEN SC SCH ×4 (07:35→21:00)
[2019-03-11] MEDS: ASPIRIN (EC) 81 MG TAB PO SCH (08:04)
[2019-03-11] MEDS: FUROSEMIDE 40 MG INJ IV SCH (08:15)
[2019-03-11] MEDS: FAMOTIDINE 20 MG TAB PO SCH ×2 (08:16→21:57)
[2019-03-11] MEDS: POTASSIUM CHLORIDE (SR) 20 MEQ TAB PO SCH (08:16)
[2019-03-11] MEDS: METOPROLOL 25 MG TAB PO SCH ×2 (08:43→21:59)
--- NOTE | 2019-03-11 08:58 | CONS ---
Assessment/Plan Assessment/Plan Assessment/Plan (Daily) Assessment and recommendations; 1. Patient transferred to ICU again for acute pulmonary embolism. Currently on IV heparin with stable hemodynamics. 2. History of recent respiratory failure requiring prolonged mechanical ventilation. 3. History of hypothyroidism. And hypertension. Continue current supportive care. Continue IV heparin at least for the next 72 hours. Consultation Date/Type/Reason Admit Date/Time Feb 12, 2019 at 12:24 Initial Consult Date Type of Consult Pulmonary/critical care Patient's condition remains critical. Still on fairly high FiO2. Patient however has remained hemodynamically stable. Patient does become agitated off sedation. General exam; young female, morbidly obese, orally intubated and sedated. Currently in no distress. Requesting Provider: LORNA LYONS MD Date/Time of Note DATE: 03/11/19 TIME: 08:56 24 HR Interval Summary Free Text/Dictation Patient's condition is fairly stable. Patient developed worsening hypoxemia yesterday, CTA of the chest was done which is showing large saddle embolus. Patient has been transferred to ICU and started on IV heparin via protocol. Patient has remained hemodynamically stable. General exam; young woman, with obvious Down's feces. Currently no distress. Awake. Exam/Review of Systems Exam Vitals Vital Signs Date Temp Pulse Resp B/P (MAP) Pulse Ox O2 O2 Flow FiO2 Time Delivery Rate 03/11/19 95 24 103/76 94 Nasal 06:00 (85) Cannula 03/11/19 98.6 04:00 03/11/19 35 03:50 03/10/19 4.0 22:00 Intake and Output 03/10/19 03/10/19 03/11/19 1515:00 23:00 07:00 IntakeIntake Total 250 ml 616 ml 162 ml OutputOutput Total 100 ml 650 ml BalanceBalance 250 ml 516 ml -488 ml Exam H EENT exam; supple neck, no JVD. No lymphadenopathy. Midline trachea. No thyromegaly. No neck masses. Chest exam; diminished but clear breath sounds. S1-S2 audible, no murmurs. Regular rhythm. No gallop. Abdomen exam; soft, no organomegaly. Nontender. Bowel sounds are audible. Extremity exam; no peripheral edema. AUTHORIZATION SPECIALIST exam; patient awake and responsive. Results Result Diagram: 03/11/19 04203/11/19 0420 Results 24hrs Laboratory Tests Test 03/10/19 10:55 03/10/19 12:24 03/10/19 17:37 03/10/19 19:56 Troponin I 0.105 B-Type Natriuretic 1570 H Peptide Bedside Glucose 118 125 White Blood Count 6.4 Red Blood Count 5.01 Hemoglobin 14.1 Hematocrit 44.4 Mean Corpuscular 88.6 Volume Mean Corpuscular 28.1 L Hemoglobin Mean Corpuscular 31.8 L Hemoglobin Concent Red Cell 20.4 H Distribution Width Platelet Count 168 Mean Platelet Volume 9.6 Immature 2.000 H Granulocytes % Neutrophils % 70.3 Lymphocytes % 17.1 Monocytes % 7.8 Eosinophils % 1.9 Basophils % 0.9 Nucleated Red Blood 0.0 Cells % Immature 0.130 H Granulocytes # Neutrophils # 4.5 Lymphocytes # 1.1 Monocytes # 0.5 Eosinophils # 0.1 Basophils # 0.1 Nucleated Red Blood 0.0 Cells # Prothrombin Time 13.7 Prothrombin Time 1.1 Ratio INR International 1.04 Normalized Ratio Activated 30.0 Partial Thromboplast Time Test 03/10/19 21:52 03/10/19 23:35 03/11/19 04:20 03/11/19 05:59 Bedside Glucose 126 Troponin I 0.065 White Blood Count 5.2 Red Blood Count 4.85 Hemoglobin 13.3 Hematocrit 43.2 Mean Corpuscular 89.1 Volume Mean Corpuscular 27.4 L Hemoglobin Mean Corpuscular 30.8 L Hemoglobin Concent Red Cell 20.2 H Distribution Width Platelet Count 166 Mean Platelet Volume 9.8 Immature 2.700 H Granulocytes % Neutrophils % 57.6 Lymphocytes % 26.7 Monocytes % 8.9 Eosinophils % 2.9 Basophils % 1.2 Nucleated Red Blood 0.0 Cells % Immature 0.140 H Granulocytes # Neutrophils # 3.0 Lymphocytes # 1.4 Monocytes # 0.5 Eosinophils # 0.2 Basophils # 0.1 Nucleated Red Blood 0.0 Cells # Activated 102.0 *H 98.0 *H Partial Thromboplast Time Sodium Level 138 Potassium Level 3.3 L Chloride Level 98 Carbon Dioxide Level 30 Anion Gap 10 Blood Urea Nitrogen 16 Creatinine 0.55 Est Glomerular > 60 Filtrat Rate mL/min Glucose Level 117 Calcium Level 8.8 Phosphorus Level 5.3 H Magnesium Level 1.9 Triglycerides Level 173 H Cholesterol Level 182 LDL Cholesterol, 125 Calculated HDL Cholesterol 22 L Cholesterol/HDL 8.2 Ratio Test 03/11/19 08:10 Bedside Glucose 118 Medications Medication Current Medications IV Flush (NS 3 ml) 3 ml PER PROTOCOL IV ; Start 02/12/19 at 15:30 Ondansetron HCl (Zofran Inj) 4 mg Q6H PRN IV NAUSEA/VOMITING; Start 02/12/19 at 15:30 Acetaminophen (Tylenol Tab) 650 mg Q6H PRN PO .PAIN 1-3 OR TEMP Last administered on 03/04/19at 18:11; Admin Dose 650 MG; Start 02/12/19 at 15:30 Levothyroxine Sodium (Synthroid) 88 mcg BEFORE BREAKFAST PO Last administered on 03/11/19at 06:27; Admin Dose 88 MCG; Start 02/15/19 at 07:00 Miscellaneous Information 1 ea NOTE XX ; Start 02/14/19 at 10:30 Glucose (Glutose) 15 gm Q15M PRN PO DECREASED GLUCOSE; Start 02/14/19 at 10:30 Glucose (Glutose) 22.5 gm Q15M PRN PO DECREASED GLUCOSE; Start 02/14/19 at 10:30 Dextrose (D50w Syringe) 25 ml Q15M PRN IV DECREASED GLUCOSE; Start 02/14/19 at 10:30 Dextrose (D50w Syringe) 50 ml Q15M PRN IV DECREASED GLUCOSE; Start 02/14/19 at 10:30 Glucagon (Glucagen) 1 mg Q15M PRN IM DECREASED GLUCOSE; Start 02/14/19 at 10:30 Glucose (Glutose) 15 gm Q15M PRN BUCCAL DECREASED GLUCOSE; Start 02/14/19 at 10:30 Bisacodyl (Dulcolax Supp) 10 mg DAILY PRN [place] CONSTIPATION Last administered on 02/21/19at 14:06; Admin Dose 10 MG; Start 02/15/19 at 11:00 IV Flush (NS 10 ml) 10 ml PRN PRN IV IV PROTOCOL; Start 02/18/19 at 15:30 Albuterol/ Ipratropium (Duoneb) 3 ml Q6H RESP THERAPY HHN Last administered on 03/11/19at 08:51; Admin Dose 3 ML; Start 03/01/19 at 14:00 Furosemide (Lasix) 40 mg DAILY IV Last administered on 03/11/19 08:15; Admin Dose 40 MG; Start 03/03/19 at 09:00 Insulin Aspart (Novolog Insulin Pen) NOVOLOG *MILD* ALGORITHM WITH MEALS BEDTIME SC Last administered on 03/09/19 17:27; Admin Dose 2 UNIT; Start 03/03/19 at 21:00 Meclizine HCl (Antivert) 12.5 mg BID PRN PO vertigo/dizziness; Start 03/05/19 at 15:30 Metoprolol Tartrate (Lopressor) 12.5 mg BID PO Last administered on 03/11/19 08:43; Admin Dose 12.5 MG; Start 03/07/19 at 14:00 Potassium Chloride (Klor-Con 20) 20 meq DAILY PO Last administered on 03/11/19 08:16; Admin Dose 20 MEQ; Start 03/09/19 at 09:00 Famotidine (Pepcid) 20 mg Q12 PO Last administered on 03/11/19 08:16; Admin Dose 20 MG; Start 03/08/19 at 21:00 Aspirin (Halfprin) 81 mg DAILY PO Last administered on 03/10/19 14:44; Admin Dose 81 MG; Start 03/10/19 at 12:00 Heparin Sodium (Porcine) 250 ml @ 18 mls/hr PER PROTOCOL IV Last administered on 03/10/19 22:23; Admin Dose 16 MLS/HR; Start 03/10/19 at 20:00 Heparin Sodium (Porcine) (Heparin (1000 Units/ml)) 3,700 unit PER PROTOCOL PRN IV aPTT<47-57; Start 03/10/19 at 22:00 Heparin Sodium (Porcine) (Heparin (1000 Units/ml)) 7,400 unit PER PROTOCOL PRN IV aPTT<47 Last administered on 03/10/19 22:19; Admin Dose 7,400 UNIT; Start 03/10/19 at 21:52 WILLA MARQUEZ Mar 11, 2019 08:58
--- NOTE | 2019-03-11 09:18 | CONS ---
Consult Date/Type/Reason Admit Date/Time Feb 12, 2019 at 12:24 Initial Consult Date Type of Consultation: Pulm/CCM Requesting Provider: LORNA LYONS MD Date/Time of Note DATE: 03/11/19 TIME: 09:10 Subjective S/p resp decompensation with PE - now on heparin gtt - stable BP - will follow up with LE dupplex and ECHO to evaluate pulm pressures. ROS: No fever, no chills, no nausea, no vomiting, no diarrhea/constipation + SOB per nurse Objective Vitals Vital Signs Date Temp Pulse Resp B/P (MAP) Pulse Ox O2 O2 Flow FiO2 Time Delivery Rate 03/11/19 86 30 94 Nasal 4.0 08:55 Cannula 03/11/19 103/76 06:00 (85) 03/11/19 98.6 04:00 03/11/19 35 03:50 Intake and Output 03/10/19 03/10/19 03/11/19 1515:00 23:00 07:00 IntakeIntake Total 250 ml 616 ml 162 ml OutputOutput Total 100 ml 650 ml BalanceBalance 250 ml 516 ml -488 ml Exam General: WN/WD/NAD, AOx 1-2 Down Sx HEENT: Unicetric/atraumatic/EOMI (follows some commands) - FM on NECK: JVD elevated, no thyromegaly Lymph: no lymphadenopathy HEART: regular with no S3, II/ systolic murmur at apex LUNGS: Coarse sounds ABD: soft, NT, ND, +BS : Intact Neuro: non focal - mild SOB SKIN: chronic changes EXT: trace edema Results/Medications Result Diagram: 03/11/1941903/11/19 042 Results 24 hrs Laboratory Tests Test 03/10/19 10:55 03/10/19 12:24 03/10/19 17:37 03/10/19 19:56 Troponin I 0.105 B-Type Natriuretic 1570 H Peptide Bedside Glucose 118 125 White Blood Count 6.4 Red Blood Count 5.01 Hemoglobin 14.1 Hematocrit 44.4 Mean Corpuscular 88.6 Volume Mean Corpuscular 28.1 L Hemoglobin Mean Corpuscular 31.8 L Hemoglobin Concent Red Cell 20.4 H Distribution Width Platelet Count 168 Mean Platelet Volume 9.6 Immature 2.000 H Granulocytes % Neutrophils % 70.3 Lymphocytes % 17.1 Monocytes % 7.8 Eosinophils % 1.9 Basophils % 0.9 Nucleated Red Blood 0.0 Cells % Immature 0.130 H Granulocytes # Neutrophils # 4.5 Lymphocytes # 1.1 Monocytes # 0.5 Eosinophils # 0.1 Basophils # 0.1 Nucleated Red Blood 0.0 Cells # Prothrombin Time 13.7 Prothrombin Time 1.1 Ratio INR International 1.04 Normalized Ratio Activated 30.0 Partial Thromboplast Time Test 03/10/19 21:52 03/10/19 23:35 03/11/19 04:20 03/11/19 05:59 Bedside Glucose 126 Troponin I 0.065 White Blood Count 5.2 Red Blood Count 4.85 Hemoglobin 13.3 Hematocrit 43.2 Mean Corpuscular 89.1 Volume Mean Corpuscular 27.4 L Hemoglobin Mean Corpuscular 30.8 L Hemoglobin Concent Red Cell 20.2 H Distribution Width Platelet Count 166 Mean Platelet Volume 9.8 Immature 2.700 H Granulocytes % Neutrophils % 57.6 Lymphocytes % 26.7 Monocytes % 8.9 Eosinophils % 2.9 Basophils % 1.2 Nucleated Red Blood 0.0 Cells % Immature 0.140 H Granulocytes # Neutrophils # 3.0 Lymphocytes # 1.4 Monocytes # 0.5 Eosinophils # 0.2 Basophils # 0.1 Nucleated Red Blood 0.0 Cells # Activated 102.0 *H 98.0 *H Partial Thromboplast Time Sodium Level 138 Potassium Level 3.3 L Chloride Level 98 Carbon Dioxide Level 30 Anion Gap 10 Blood Urea Nitrogen 16 Creatinine 0.55 Est Glomerular > 60 Filtrat Rate mL/min Glucose Level 117 Calcium Level 8.8 Phosphorus Level 5.3 H Magnesium Level 1.9 Triglycerides Level 173 H Cholesterol Level 182 LDL Cholesterol, 125 Calculated HDL Cholesterol 22 L Cholesterol/HDL 8.2 Ratio Test 03/11/19 08:10 Bedside Glucose 118 Home Meds Reported Medications Edmore Carbonate* (Edmore*) 300 Mg Cap, 600 MG PO QHS, CAP 02/12/19 Levothyroxine Sodium* (Levoxyl*) 88 Mcg Tablet, 88 MCG PO BEFORE BREAKFAST, #30 TAB 02/12/19 Loxapine Succinate (Loxapine) 10 Mg Capsule, 10 MG PO QHS, CAP 02/12/19 Cyanocobalamin* (Vitamin B12*) 100 Mcg Tab, 100 MCG PO DAILY, TAB 02/12/19 Loratadine* (Loratadine*) 10 Mg Tablet, 10 MG PO DAILY, #30 TAB 02/12/19 Metformin Hcl* (Metformin Hcl*) 500 Mg Tablet, 500 MG PO WITH BREAKFAST, #30 TAB 02/12/19 Propranolol Hcl* (Propranolol Hcl*) 10 Mg Tablet, 10 MG PO BID, TAB 02/12/19 Ergocalciferol (Vitamin D2) (VITAMIN D2) 50,000 Unit Capsule, 12406 UNIT PO EVERY SUNDAY, CAP 02/12/19 Medications Current Medications IV Flush (NS 3 ml) 3 ml PER PROTOCOL IV ; Start 02/12/19 at 15:30 Ondansetron HCl (Zofran Inj) 4 mg Q6H PRN IV NAUSEA/VOMITING; Start 02/12/19 at 15:30 Acetaminophen (Tylenol Tab) 650 mg Q6H PRN PO .PAIN 1-3 OR TEMP Last administered on 03/04/19at 18:11; Admin Dose 650 MG; Start 02/12/19 at 15:30 Levothyroxine Sodium (Synthroid) 88 mcg BEFORE BREAKFAST PO Last administered on 03/11/19at 06:27; Admin Dose 88 MCG; Start 02/15/19 at 07:00 Miscellaneous Information 1 ea NOTE XX ; Start 02/14/19 at 10:30 Glucose (Glutose) 15 gm Q15M PRN PO DECREASED GLUCOSE; Start 02/14/19 at 10:30 Glucose (Glutose) 22.5 gm Q15M PRN PO DECREASED GLUCOSE; Start 02/14/19 at 10:30 Dextrose (D50w Syringe) 25 ml Q15M PRN IV DECREASED GLUCOSE; Start 02/14/19 at 10:30 Dextrose (D50w Syringe) 50 ml Q15M PRN IV DECREASED GLUCOSE; Start 02/14/19 at 10:30 Glucagon (Glucagen) 1 mg Q15M PRN IM DECREASED GLUCOSE; Start 02/14/19 at 10:30 Glucose (Glutose) 15 gm Q15M PRN BUCCAL DECREASED GLUCOSE; Start 02/14/19 at 10:30 Bisacodyl (Dulcolax Supp) 10 mg DAILY PRN [place] CONSTIPATION Last administered on 02/21/19at 14:06; Admin Dose 10 MG; Start 02/15/19 at 11:00 IV Flush (NS 10 ml) 10 ml PRN PRN IV IV PROTOCOL; Start 02/18/19 at 15:30 Albuterol/ Ipratropium (Duoneb) 3 ml Q6H RESP THERAPY HHN Last administered on 03/11/19 08:51; Admin Dose 3 ML; Start 03/01/19 at 14:00 Furosemide (Lasix) 40 mg DAILY IV Last administered on 03/11/19 08:15; Admin Dose 40 MG; Start 03/03/19 at 09:00 Insulin Aspart (Novolog Insulin Pen) NOVOLOG *MILD* ALGORITHM WITH MEALS BEDTIME SC Last administered on 03/09/19 17:27; Admin Dose 2 UNIT; Start 03/03/19 at 21:00 Meclizine HCl (Antivert) 12.5 mg BID PRN PO vertigo/dizziness; Start 03/05/19 at 15:30 Metoprolol Tartrate (Lopressor) 12.5 mg BID PO Last administered on 03/11/19 08:43; Admin Dose 12.5 MG; Start 03/07/19 at 14:00 Potassium Chloride (Klor-Con 20) 20 meq DAILY PO Last administered on 03/11/19 08:16; Admin Dose 20 MEQ; Start 03/09/19 at 09:00 Famotidine (Pepcid) 20 mg Q12 PO Last administered on 03/11/19 08:16; Admin Dose 20 MG; Start 03/08/19 at 21:00 Aspirin (Halfprin) 81 mg DAILY PO Last administered on 03/10/19 14:44; Admin Dose 81 MG; Start 03/10/19 at 12:00 Heparin Sodium (Porcine) 250 ml @ 18 mls/hr PER PROTOCOL IV Last administered on 03/10/19 22:23; Admin Dose 16 MLS/HR; Start 03/10/19 at 20:00 Heparin Sodium (Porcine) (Heparin (1000 Units/ml)) 3,700 unit PER PROTOCOL PRN IV aPTT<47-57; Start 03/10/19 at 22:00 Heparin Sodium (Porcine) (Heparin (1000 Units/ml)) 7,400 unit PER PROTOCOL PRN IV aPTT<47 Last administered on 03/10/19 22:19; Admin Dose 7,400 UNIT; Start 03/10/19 at 21:52 Assessment/Plan Hospital Course (Demo Recall) 1. Respiratory failure, assess for congestive heart failure - now intubated, con't supportive Rx. Con't to wean as tolerated. Con't to wean per pulmonary team. Extubated - appears to be saturating well - con't to follow - will spot lasix if needed. Better overall - in good fluid status. 2. Lower extremity edema, assess for congestive heart failure- con't diuresis - increased urine output. On meds now. Rate controlled. Improved. Con't to monitor clinically now, Improved. 3. Tachycardia, improved, status post intubation, likely due to respiratory distress. Sinus tach - better now. Treated. NOw in sinus at 90s - con't resp care., Better overall. Rate controlled. Labile - no fever - will monitor now. Rate controlled. 4. Abnormal electrocardiogram with right axis deviation and T-wave flattening. Assess for acute coronary syndrome. NO CP now. 5. Down syndrome. Supportive Rx as needed. 6. Hypothyroidism - on meds. Treated. On meds. 7. Diabetes mellitus- con't to keep euglycemic. Con't to keep euglycemic. On meds. 8. Obstructive sleep apnea- on vent. 9. CHF - diast HF - acute on chronic, con'y gentle diuresis. Spot Rx as needed. Better. BRIAN PATTERSON MD Mar 11, 2019 09:18
[2019-03-11] MEDS ORDERED: POTASSIUM CHLORIDE (SR) 20 MEQ TAB PO STA (10:27)
--- NOTE | 2019-03-11 10:36 | PN ---
Date/Time of Note Date/Time of Note DATE: 03/11/19 TIME: 10:31 Assessment/Plan VTE Prophylaxis Risk score (from Ns)>0 risk: 10 SCD applied (from Ns): No SCD contraindicated: low risk/ambulating Pharmacological prophylaxis: NA/contraindicated Pharm contraindication: low risk/ambulating Lines/C[facility] Central line still needed: Yes Urinary Cath still in place: No Assessment/Plan Assessment/Plan Assessment/Plan # large saddle pulmonary embolus straddling both main pulmonary arteries with large amount of clot burden extending into both lower lobe pulmonary arteries. A small amount of nonocclusive clot is also noted in the right upper lobe pulmonary artery. There is evidence of right heart strain with enlargement of the right ventricle # Wedge-shaped area of consolidation in the right lower lobe may represent an area of pulmonary infarct with rt sided chest pain/abdominal pain #Positive troponin with an episode of chest pain and shortness of breath, EKG showed sinus tachycardia, ABG showed marked hypoxia even though the chest x-ray is not showing much disease . She has been nonambulatory # Severe altered mental status likely secondary to metabolic encephalopathy, likely secondary to CO2 narcosis. pt is alert, oriented 2 #. Hypoxic respiratory failure, resolving, still on supplemental oxygen #. Respiratory alkalosis, no ABG today #. Morbid obesity. # Down syndrome. #. Hypertension, now normotensive. #. Diabetes mellitus type II blood sugar controled. # History of ventral hernia repair. #. Leukocytosis secondary to pneumonia, resolved #. Hypothyroidism 11. KIRIT, more likely due to sepsis, resolved Assessment/Plan -Patient is has a large PE, hemodynamically stable> spoke to Dr Sagastume will hold off thrombolytics - cw heparin gtt, pt was refusing scd on floor and PT but was on lovenox - Venous doppler to r/O DVT - incentive spirometry for atelactalsis - cw asa/MTP - Hold off lasix as pt has RV strain - replete K - fu cards/pul recs - cw levothyroxine supplement - GI Famotidine BID - hOLD PT now due to large blood clot Result Diagram: 03/11/19 0420 03/11/19 0420 Results 24hrs Laboratory Tests Test 03/10/19 10:55 03/10/19 12:24 03/10/19 17:37 03/10/19 19:56 Troponin I 0.105 B-Type Natriuretic 1570 H Peptide Bedside Glucose 118 125 White Blood Count 6.4 Red Blood Count 5.01 Hemoglobin 14.1 Hematocrit 44.4 Mean Corpuscular 88.6 Volume Mean Corpuscular 28.1 L Hemoglobin Mean Corpuscular 31.8 L Hemoglobin Concent Red Cell 20.4 H Distribution Width Platelet Count 168 Mean Platelet Volume 9.6 Immature 2.000 H Granulocytes % Neutrophils % 70.3 Lymphocytes % 17.1 Monocytes % 7.8 Eosinophils % 1.9 Basophils % 0.9 Nucleated Red Blood 0.0 Cells % Immature 0.130 H Granulocytes # Neutrophils # 4.5 Lymphocytes # 1.1 Monocytes # 0.5 Eosinophils # 0.1 Basophils # 0.1 Nucleated Red Blood 0.0 Cells # Prothrombin Time 13.7 Prothrombin Time 1.1 Ratio INR International 1.04 Normalized Ratio Activated 30.0 Partial Thromboplast Time Test 03/10/19 21:52 03/10/19 23:35 03/11/19 04:20 03/11/19 05:59 Bedside Glucose 126 Troponin I 0.065 White Blood Count 5.2 Red Blood Count 4.85 Hemoglobin 13.3 Hematocrit 43.2 Mean Corpuscular 89.1 Volume Mean Corpuscular 27.4 L Hemoglobin Mean Corpuscular 30.8 L Hemoglobin Concent Red Cell 20.2 H Distribution Width Platelet Count 166 Mean Platelet Volume 9.8 Immature 2.700 H Granulocytes % Neutrophils % 57.6 Lymphocytes % 26.7 Monocytes % 8.9 Eosinophils % 2.9 Basophils % 1.2 Nucleated Red Blood 0.0 Cells % Immature 0.140 H Granulocytes # Neutrophils # 3.0 Lymphocytes # 1.4 Monocytes # 0.5 Eosinophils # 0.2 Basophils # 0.1 Nucleated Red Blood 0.0 Cells # Activated 102.0 *H 98.0 *H Partial Thromboplast Time Sodium Level 138 Potassium Level 3.3 L Chloride Level 98 Carbon Dioxide Level 30 Anion Gap 10 Blood Urea Nitrogen 16 Creatinine 0.55 Est Glomerular > 60 Filtrat Rate mL/min Glucose Level 117 Calcium Level 8.8 Phosphorus Level 5.3 H Magnesium Level 1.9 Triglycerides Level 173 H Cholesterol Level 182 LDL Cholesterol, 125 Calculated HDL Cholesterol 22 L Cholesterol/HDL 8.2 Ratio Test 03/11/19 08:10 Bedside Glucose 118 Subjective 24 Hr Interval Summary Free Text/Dictation Patient was transferred to ICU as CT of the chest showed large saddle thrombus with large tumor burden She was started on heparin drip She is complaining of right-sided chest/abdominal pain spoke to the mother on bedside Exam/Review of Systems Exam Vitals Vital Signs Date Temp Pulse Resp B/P (MAP) Pulse Ox O2 O2 Flow FiO2 Time Delivery Rate 03/11/19 91 28 119/82 93 Nasal 4.0 09:00 (94) Cannula 03/11/19 98.4 08:00 03/11/19 35 03:50 Intake and Output 03/10/19 03/10/19 03/11/19 1515:00 23:00 07:00 IntakeIntake Total 250 ml 616 ml 162 ml OutputOutput Total 100 ml 650 ml BalanceBalance 250 ml 516 ml -488 ml Exam thick neck. General awake alert oriented somewhat anxious clear To auscultate Heart regular rate rhythm abdomen: obese, +soft small extremities, 1+edema Neuro exam nonfocal Results Results 24hrs Laboratory Tests Test 03/10/19 10:55 03/10/19 12:24 03/10/19 17:37 03/10/19 19:56 Troponin I 0.105 B-Type Natriuretic 1570 H Peptide Bedside Glucose 118 125 White Blood Count 6.4 Red Blood Count 5.01 Hemoglobin 14.1 Hematocrit 44.4 Mean Corpuscular 88.6 Volume Mean Corpuscular 28.1 L Hemoglobin Mean Corpuscular 31.8 L Hemoglobin Concent Red Cell 20.4 H Distribution Width Platelet Count 168 Mean Platelet Volume 9.6 Immature 2.000 H Granulocytes % Neutrophils % 70.3 Lymphocytes % 17.1 Monocytes % 7.8 Eosinophils % 1.9 Basophils % 0.9 Nucleated Red Blood 0.0 Cells % Immature 0.130 H Granulocytes # Neutrophils # 4.5 Lymphocytes # 1.1 Monocytes # 0.5 Eosinophils # 0.1 Basophils # 0.1 Nucleated Red Blood 0.0 Cells # Prothrombin Time 13.7 Prothrombin Time 1.1 Ratio INR International 1.04 Normalized Ratio Activated 30.0 Partial Thromboplast Time Test 03/10/19 21:52 03/10/19 23:35 03/11/19 04:20 03/11/19 05:59 Bedside Glucose 126 Troponin I 0.065 White Blood Count 5.2 Red Blood Count 4.85 Hemoglobin 13.3 Hematocrit 43.2 Mean Corpuscular 89.1 Volume Mean Corpuscular 27.4 L Hemoglobin Mean Corpuscular 30.8 L Hemoglobin Concent Red Cell 20.2 H Distribution Width Platelet Count 166 Mean Platelet Volume 9.8 Immature 2.700 H Granulocytes % Neutrophils % 57.6 Lymphocytes % 26.7 Monocytes % 8.9 Eosinophils % 2.9 Basophils % 1.2 Nucleated Red Blood 0.0 Cells % Immature 0.140 H Granulocytes # Neutrophils # 3.0 Lymphocytes # 1.4 Monocytes # 0.5 Eosinophils # 0.2 Basophils # 0.1 Nucleated Red Blood 0.0 Cells # Activated 102.0 *H 98.0 *H Partial Thromboplast Time Sodium Level 138 Potassium Level 3.3 L Chloride Level 98 Carbon Dioxide Level 30 Anion Gap 10 Blood Urea Nitrogen 16 Creatinine 0.55 Est Glomerular > 60 Filtrat Rate mL/min Glucose Level 117 Calcium Level 8.8 Phosphorus Level 5.3 H Magnesium Level 1.9 Triglycerides Level 173 H Cholesterol Level 182 LDL Cholesterol, 125 Calculated HDL Cholesterol 22 L Cholesterol/HDL 8.2 Ratio Test 03/11/19 08:10 Bedside Glucose 118 Medications Medication Current Medications IV Flush (NS 3 ml) 3 ml PER PROTOCOL IV ; Start 02/12/19 at 15:30 Ondansetron HCl (Zofran Inj) 4 mg Q6H PRN IV NAUSEA/VOMITING; Start 02/12/19 at 15:30 Acetaminophen (Tylenol Tab) 650 mg Q6H PRN PO .PAIN 1-3 OR TEMP Last adm inistered on 03/04/19at 18:11; Admin Dose 650 MG; Start 02/12/19 at 15:30 Levothyroxine Sodium (Synthroid) 88 mcg BEFORE BREAKFAST PO Last administered on 03/11/19at 06:27; Admin Dose 88 MCG; Start 02/15/19 at 07:00 Miscellaneous Information 1 ea NOTE XX ; Start 02/14/19 at 10:30 Glucose (Glutose) 15 gm Q15M PRN PO DECREASED GLUCOSE; Start 02/14/19 at 10:30 Glucose (Glutose) 22.5 gm Q15M PRN PO DECREASED GLUCOSE; Start 02/14/19 at 10:30 Dextrose (D50w Syringe) 25 ml Q15M PRN IV DECREASED GLUCOSE; Start 02/14/19 at 10:30 Dextrose (D50w Syringe) 50 ml Q15M PRN IV DECREASED GLUCOSE; Start 02/14/19 at 10:30 Glucagon (Glucagen) 1 mg Q15M PRN IM DECREASED GLUCOSE; Start 02/14/19 at 10:30 Glucose (Glutose) 15 gm Q15M PRN BUCCAL DECREASED GLUCOSE; Start 02/14/19 at 10:30 Bisacodyl (Dulcolax Supp) 10 mg DAILY PRN [place] CONSTIPATION Last administered on 02/21/19 14:06; Admin Dose 10 MG; Start 02/15/19 at 11:00 IV Flush (NS 10 ml) 10 ml PRN PRN IV IV PROTOCOL; Start 02/18/19 at 15:30 Albuterol/ Ipratropium (Duoneb) 3 ml Q6H RESP THERAPY HHN Last administered on 03/11/19 08:51; Admin Dose 3 ML; Start 03/01/19 at 14:00 Insulin Aspart (Novolog Insulin Pen) NOVOLOG *MILD* ALGORITHM WITH MEALS BEDT [place]ID [place] Last administered on 03/09/19 17:27; Admin Dose 2 UNIT; Start 03/03/19 at 21:00 Meclizine HCl (Antivert) 12.5 mg BID PRN PO vertigo/dizziness; Start 03/05/19 at 15:30 Metoprolol Tartrate (Lopressor) 12.5 mg BID PO Last administered on 03/11/19 08:43; Admin Dose 12.5 MG; Start 03/07/19 at 14:00 Potassium Chloride (Klor-Con 20) 20 meq DAILY PO Last administered on 03/11/19 08:16; Admin Dose 20 MEQ; Start 03/09/19 at 09:00 Famotidine (Pepcid) 20 mg Q12 PO Last administered on 03/11/19 08:16; Admin Dose 20 MG; Start 03/08/19 at 21:00 Aspirin (Halfprin) 81 mg DAILY PO Last administered on 03/10/19 14:44; Admin Dose 81 MG; Start 03/10/19 at 12:00 Heparin Sodium (Porcine) 250 ml @ 18 mls/hr PER PROTOCOL IV Last administered on 03/10/19 22:23; Admin Dose 16 MLS/HR; Start 03/10/19 at 20:00 Heparin Sodium (Porcine) (Heparin (1000 Units/ml)) 3,700 unit PER PROTOCOL PRN IV aPTT<47-57; Start 03/10/19 at 22:00 Heparin Sodium (Porcine) (Heparin (1000 Units/ml)) 7,400 unit PER PROTOCOL PRN IV aPTT<47 Last administered on 03/10/19at 22:19; Admin Dose 7,400 UNIT; Start 03/10/19 at 21:52 Potassium Chloride (Klor-Con 20) 40 meq ONCE STAT PO ; Start 03/11/19 at 10:27; Stop 03/11/19 at 10:28; Status LORNA WHITT MD Mar 11, 2019 10:36
[2019-03-11] MEDS: HEPARIN 25000 UNITS/250 ML 250 ML IV SCH (16:06)
[2019-03-11] MEDS: HEPARIN 1000 UNITS/ML 10 ML INJ IV PRN (17:44)
[2019-03-12] VITALS (20 sets, daily range): BP systolic 93–133; BP diastolic 3–77; PULSE 64–110; RESP 18–33
[2019-03-12] MEDS: ALBUTEROL/IPRATROPIUM (NEB) 3 ML AMP HHN SCH ×4 (01:06→20:55)
[2019-03-12] MEDS: LEVOTHYROXINE 88 MCG TAB PO SCH (06:16)
--- NOTE | 2019-03-12 06:25 | PN ---
DATE: 03/11/2019 SUBJECTIVE: The patient was transferred to ICU secondary to respiratory distress. She was found to have pulmonary embolism and currently on heparin drip. She is sleeping, arousable, in no distress. WBC 5.2, no shift, no bands. BUN 16, creatinine 0.55. VITAL SIGNS: The patient has no fevers. DIAGNOSTICS: Chest x-ray this morning revealed increased bilateral lower lung infiltrates or edema. INDWELLINGS: She has PICC line. PHYSICAL EXAMINATION: GENERAL: The patient is an obese, well-developed, middle-aged woman who is in no distress. HEENT: Head atraumatic, normocephalic. NECK: Obese, short. CHEST: Rise symmetrical. Breath sounds diminished to bases. HEART: S1, S2. ABDOMEN: Obese, soft, bowel sounds present. EXTREMITIES: Without cyanosis. ASSESSMENT: 1. Mekat-yn-vntutpi hypoxemic respiratory failure secondary to pulmonary embolism. 2. Status post pneumonia. 3. Diabetes. 4. Hypertension. 5. Morbid obesity. 6. Obstructive sleep apnea. PLAN: The patient remains hemodynamically stable. Pulmonary, cardiology on case. So far there is n o active infectious process. We will keep her off antibiotics for now and monitor closely. Dictated By: RUDOLPH YOON DATA CLERK for ЕКАТЕРИНА AGUIRRE/MICHAEL Conf#: [id number] DID#: [id number]
[2019-03-12] MEDS: INSULIN ASPART [NOVOLOG] 3 ML PEN SC SCH ×4 (07:35→20:45)
[2019-03-12] MEDS: ASPIRIN (EC) 81 MG TAB PO SCH (08:21)
[2019-03-12] MEDS: POTASSIUM CHLORIDE (SR) 20 MEQ TAB PO SCH (08:22)
[2019-03-12] MEDS: METOPROLOL 25 MG TAB PO SCH ×2 (08:22→20:48)
[2019-03-12] MEDS: FAMOTIDINE 20 MG TAB PO SCH ×2 (08:23→20:44)
[2019-03-12] MEDS: HEPARIN 25000 UNITS/250 ML 250 ML IV SCH ×2 (08:39→19:28)
--- NOTE | 2019-03-12 09:20 | CONS ---
Assessment/Plan Assessment/Plan Assessment/Plan (Daily) Assessment and recommendations; next 1. Patient status post respiratory failure requiring prolonged intubation was transferred to medical floor with the patient became hypoxemic due to saddle pulmonary embolus with right lower extremity DVT. Currently on IV heparin via protocol with stable hemodynamics and overall clinical status. 2. History of Down syndrome. 3. History of hypothyroidism. 4. Central hypoventilation. With chronic hypercapnic respiratory failure. Continue current supportive care. Patient responding well to IV heparin. Echocardiogram is pending for evaluation of right ventricular strain. Continue nocturnal BiPAP. I did have a detailed discussion with the patient's mother at bedside and answered all her questions. Consultation Date/Type/Reason Admit Date/Time Feb 12, 2019 at 12:24 Initial Consult Date Type of Consult Pulmonary/critical care Patient's condition remains critical. Still on fairly high FiO2. Patient however has remained hemodynamically stable. Patient does become agitated off sedation. General exam; young female, morbidly obese, orally intubated and sedated. Currently in no distress. Requesting Provider: LORNA LYONS MD Date/Time of Note DATE: 03/12/19 TIME: 09:17 24 HR Interval Summary Free Text/Dictation Patient's condition is fairly stable. Remains awake and responsive. Has adilene ined hemodynamically stable. General exam; young woman, with Down syndrome. Currently in no distress. Exam/Review of Systems Exam Vitals Vital Signs Date Temp Pulse Resp B/P (MAP) Pulse Ox O2 O2 Flow FiO2 Time Delivery Rate 03/12/19 77 26 99 Nasal 2.0 08:49 Cannula 03/12/19 97.5 99/56 (70) 08:00 03/12/19 35 05:56 Intake and Output 03/11/19 03/11/19 03/12/19 1515:00 23:00 07:00 IntakeIntake Total 304 ml 780 ml 93 ml OutputOutput Total 1 ml 0 ml BalanceBalance 304 ml 779 ml 93 ml Exam H EENT exam; supple neck, no neck masses. Chest exam; clear to auscultation. S1-S2 audible, no murmurs. Regular rhythm. Abdomen exam; soft, protuberant. Nontender. Bowel sounds audible. Organomegaly difficult to assess. Extremity exam; no peripheral edema. SAW SHARPENER exam; patient awake and follows simple commands. Results Result Diagram: 03/12/19 0658 03/12/1958 Results 24hrs Laboratory Tests Test 03/11/19 12:32 03/11/19 13:31 03/11/19 16:17 03/11/19 17:30 Bedside Glucose 109 139 Activated 42.0 H 44.9 H Partial Thromboplast Time Test 03/11/19 21:56 03/11/19 23:09 03/12/19 06:58 03/12/19 08:16 Bedside Glucose 123 101 Activated 116.6 *H 80.6 *H Partial Thromboplast Time White Blood Count 4.8 Red Blood Count 4.77 Hemoglobin 13.4 Hematocrit 42.9 Mean Corpuscular 89.9 Volume Mean Corpuscular 28.1 L Hemoglobin Mean Corpuscular 31.2 L Hemoglobin Concent Red Cell 20.1 H Distribution Width Platelet Count 167 Mean Platelet Volume 9.0 Immature 4.600 H Granulocytes % Neutrophils % 54.2 Lymphocytes % 26.5 Monocytes % 10.5 Eosinophils % 2.9 Basophils % 1.3 Nucleated Red Blood 0.0 Cells % Immature 0.220 H Granulocytes # Neutrophils # 2.6 Lymphocytes # 1.3 Monocytes # 0.5 Eosinophils # 0.1 Basophils # 0.1 Nucleated Red Blood 0.0 Cells # Sodium Level 137 Potassium Level 4.1 Chloride Level 98 Carbon Dioxide Level 34 H Anion Gap 5 Blood Urea Nitrogen 12 Creatinine 0.62 Est Glomerular > 60 Filtrat Rate mL/min Glucose Level 120 Calcium Level 8.9 Phosphorus Level 4.8 Magnesium Level 1.9 Total Bilirubin 0.4 Direct Bilirubin 0.00 Indirect Bilirubin 0.4 Aspartate Amino 25 Transf (AST/SGOT) Alanine 37 Aminotransferase (AL T/SGPT) Alkaline Phosphatase 58 Total Protein 6.2 Albumin 3.2 L Globulin 3.00 Albumin/Globulin 1.06 Ratio Medications Medication Current Medications IV Flush (NS 3 ml) 3 ml PER PROTOCOL IV ; Start 02/12/19 at 15:30 Ondansetron HCl (Zofran Inj) 4 mg Q6H PRN IV NAUSEA/VOMITING; Start 02/12/19 at 15:30 Acetaminophen (Tylenol Tab) 650 mg Q6H PRN PO .PAIN 1-3 OR TEMP Last administered on 03/04/19at 18:11; Admin Dose 650 MG; Start 02/12/19 at 15:30 Levothyroxine Sodium (Synthroid) 88 mcg BEFORE BREAKFAST PO Last administered on 03/12/19at 06:16; Admin Dose 88 MCG; Start 02/15/19 at 07:00 Miscellaneous Information 1 ea NOTE XX ; Start 02/14/19 at 10:30 Glucose (Glutose) 15 gm Q15M PRN PO DECREASED GLUCOSE; Start 02/14/19 at 10:30 Glucose (Glutose) 22.5 gm Q15M PRN PO DECREASED GLUCOSE; Start 02/14/19 at 10:30 Dextrose (D50w Syringe) 25 ml Q15M PRN IV DECREASED GLUCOSE; Start 02/14/19 at 10:30 Dextrose (D50w Syringe) 50 ml Q15M PRN IV DECREASED GLUCOSE; Start 02/14/19 at 10:30 Glucagon (Glucagen) 1 mg Q15M PRN IM DECREASED GLUCOSE; Start 02/14/19 at 10:30 Glucose (Glutose) 15 gm Q15M PRN BUCCAL DECREASED GLUCOSE; Start 02/14/19 at 10:30 Bisacodyl (Dulcolax Supp) 10 mg DAILY PRN [place] CONSTIPATION Last administered on 02/21/19at 14:06; Admin Dose 10 MG; Start 02/15/19 at 11:00 IV Flush (NS 10 ml) 10 ml PRN PRN IV IV PROTOCOL; Start 02/18/19 at 15:30 Albuterol/ Ipratropium (Duoneb) 3 ml Q6H RESP THERAPY HHN Last administered on 03/12/19at 08:54; Admin Dose 3 ML; Start 03/01/19 at 14:00 Insulin Aspart (Novolog Insulin Pen) NOVOLOG *MILD* ALGORITHM WITH MEALS B EDTIME SC Last administered on 03/09/19at 17:27; Admin Dose 2 UNIT; Start 03/03/19 at 21:00 Meclizine HCl (Antivert) 12.5 mg BID PRN PO vertigo/dizziness; Start 03/05/19 at 15:30 Metoprolol Tartrate (Lopressor) 12.5 mg BID PO Last administered on 03/11/19at 21:59; Admin Dose 12.5 MG; Start 03/07/19 at 14:00 Potassium Chloride (Klor-Con 20) 20 meq DAILY PO Last administered on 03/12/19at 08:22; Admin Dose 20 MEQ; Start 03/09/19 at 09:00 Famotidine (Pepcid) 20 mg Q12 PO Last administered on 03/12/19 08:23; Admin Dose 20 MG; Start 03/08/19 at 21:00 Aspirin (Halfprin) 81 mg DAILY PO Last administered on 03/12/19 08:21; Admin Dose 81 MG; Start 03/10/19 at 12:00 Heparin Sodium (Porcine) 250 ml @ 18 mls/hr PER PROTOCOL IV Last administered on 03/12/19 08:39; Admin Dose 14 MLS/HR; Start 03/10/19 at 20:00 Heparin Sodium (Porcine) (Heparin (1000 Units/ml)) 3,700 unit PER PROTOCOL PRN IV aPTT<47-57; Start 03/10/19 at 22:00 Heparin Sodium (Porcine) (Heparin (1000 Units/ml)) 7,400 unit PER PROTOCOL PRN IV aPTT<47 Last administered on 03/11/19at 17:44; Admin Dose 7,400 UNIT; Start 03/10/19 at 21:52 WILLA MARQUEZ Mar 12, 2019 09:20
--- NOTE | 2019-03-12 12:22 | PN ---
Date/Time of Note Date/Time of Note DATE: 03/12/19 TIME: 12:22 Assessment/Plan VTE Prophylaxis Risk score (from Ns)>0 risk: 9 SCD applied (from Ns): No SCD contraindicated: low risk/ambulating Pharmacological prophylaxis: NA/contraindicated Pharm contraindication: low risk/ambulating Lines/Catheters [facility] P[facility] Line Central line still needed: Yes Urinary Cath still in place: No Assessment/Plan Assessment/Plan #large saddle pulmonary embolus straddling both main pulmonary arteries with large amount of clot burden extending into both lower lobe pulmonary arteries. A small amount of nonocclusive clot is also noted in the right upper lobe pulmonary artery. There is evidence of right heart strain with enlargement of the right ventricle # Wedge-shaped area of consolidation in the right lower lobe may represent an area of pulmonary infarct with rt sided chest pain/abdominal pain #Positive troponin with an episode of chest pain and shortness of breath, EKG showed sinus tachycardia, ABG showed marked hypoxia even though the chest x-ray is not showing much disease . She has been nonambulatory # Severe altered mental status likely secondary to metabolic encephalopathy, likely secondary to CO2 narcosis. pt is alert, oriented 2 #. Hypoxic respiratory failure, resolving, still on supplemental oxygen #. Respiratory alkalosis, no ABG today #. Morbid obesity. # Down syndrome. #. Hypertension, now normotensive. #. Diabetes mellitus type II blood sugar controled. # History of ventral hernia repair. #. Leukocytosis secondary to pneumonia, resolved #. Hypothyroidism 11. KIRIT, more likely due to sepsis, resolved Assessment/Plan -Patient is has a large PE, hemodynamically stable> spoke to Dr Sagastume will hold off thrombolytics - cw heparin gtt, pt was refusing scd on floor and PT but was on lovenox, the admission lower extremity ultrasound was negative for DVT but now patient has a DVT of the left leg - incentive spirometry for atelactalsis - cw asa/MTP - Hold off lasix as pt has RV strain, check echo - replete K - fu cards/pul recs - cw levothyroxine supplement - GI Famotidine BID - hOLD PT now due to large blood clot Result Diagram: 03/12/19 0658 03/12/19 0658 Results 24hrs Laboratory Tests Test 03/11/19 12:32 03/11/19 13:31 03/11/19 16:17 03/11/19 17:30 Bedside Glucose 109 139 Activated 42.0 H 44.9 H Partial Thromboplast Time Test 03/11/19 21:56 03/11/19 23:09 03/12/19 06:58 03/12/19 08:16 Bedside Glucose 123 101 Activated 116.6 *H 80.6 *H Partial Thromboplast Time White Blood Count 4.8 Red Blood Count 4.77 Hemoglobin 13.4 Hematocrit 42.9 Mean Corpuscular 89.9 Volume Mean Corpuscular 28.1 L Hemoglobin Mean Corpuscular 31.2 L Hemoglobin Concent Red Cell 20.1 H Distribution Width Platelet Count 167 Mean Platelet Volume 9.0 Immature 4.600 H Granulocytes % Neutrophils % 54.2 Lymphocytes % 26.5 Monocytes % 10.5 Eosinophils % 2.9 Basophils % 1.3 Nucleated Red Blood 0.0 Cells % Immature 0.220 H Granulocytes # Neutrophils # 2.6 Lymphocytes # 1.3 Monocytes # 0.5 Eosinophils # 0.1 Basophils # 0.1 Nucleated Red Blood 0.0 Cells # Sodium Level 137 Potassium Level 4.1 Chloride Level 98 Carbon Dioxide Level 34 H Anion Gap 5 Blood Urea Nitrogen 12 Creatinine 0.62 Est Glomerular > 60 Filtrat Rate mL/min Glucose Level 120 Calcium Level 8.9 Phosphorus Level 4.8 Magnesium Level 1.9 Total Bilirubin 0.4 Direct Bilirubin 0.00 Indirect Bilirubin 0.4 Aspartate Amino 25 Transf (AST/SGOT) Alanine 37 Aminotransferase (AL T/SGPT) Alkaline Phosphatase 58 Total Protein 6.2 Albumin 3.2 L Globulin 3.00 Albumin/Globulin 1.06 Ratio Test 03/12/19 11:31 Bedside Glucose 129 Subjective 24 Hr Interval Summary Free Text/Dictation She is hemodynamically stable. ultraSound of the left leg shows extensive DVT Exam/Review of Systems Exam Vitals Vital Signs Date Temp Pulse Resp B/P (MAP) Pulse Ox O2 O2 Flow FiO2 Time Delivery Rate 03/12/19 77 26 99 Nasal 2.0 08:49 Cannula 03/12/19 97.5 99/56 (70) 08:00 03/12/19 35 05:56 Intake and Output 03/11/19 03/11/19 03/12/19 1515:00 23:00 07:00 IntakeIntake Total 304 ml 780 ml 93 ml OutputOutput Total 1 ml 0 ml BalanceBalance 304 ml 779 ml 93 ml Exam thick neck. General awake alert oriented somewhat anxious clear To auscultate Heart regular rate rhythm abdomen: obese, +soft small extremities, 1+edema Neuro exam nonfocal Results Results 24hrs Laboratory Tests Test 03/11/19 12:32 03/11/19 13:31 03/11/19 16:17 03/11/19 17:30 Bedside Glucose 109 139 Activated 42.0 H 44.9 H Partial Thromboplast Time Test 03/11/19 21:56 03/11/19 23:09 03/12/19 06:58 03/12/19 08:16 Bedside Glucose 123 101 Activated 116.6 *H 80.6 *H Partial Thromboplast Time White Blood Count 4.8 Red Blood Count 4.77 Hemoglobin 13.4 Hematocrit 42.9 Mean Corpuscular 89.9 Volume Mean Corpuscular 28.1 L Hemoglobin Mean Corpuscular 31.2 L Hemoglobin Concent Red Cell 20.1 H Distribution Width Platelet Count 167 Mean Platelet Volume 9.0 Immature 4.600 H Granulocytes % Neutrophils % 54.2 Lymphocytes % 26.5 Monocytes % 10.5 Eosinophils % 2.9 Basophils % 1.3 Nucleated Red Blood 0.0 Cells % Immature 0.220 H Granulocytes # Neutrophils # 2.6 Lymphocytes # 1.3 Monocytes # 0.5 Eosinophils # 0.1 Basophils # 0.1 Nucleated Red Blood 0.0 Cells # Sodium Level 137 Potassium Level 4.1 Chloride Level 98 Carbon Dioxide Level 34 H Anion Gap 5 Blood Urea Nitrogen 12 Creatinine 0.62 Est Glomerular > 60 Filtrat Rate mL/min Glucose Level 120 Calcium Level 8.9 Phosphorus Level 4.8 Magnesium Level 1.9 Total Bilirubin 0.4 Direct Bilirubin 0.00 Indirect Bilirubin 0.4 Aspartate Amino 25 Transf (AST/SGOT) Alanine 37 Aminotransferase (AL T/SGPT) Alkaline Phosphatase 58 Total Protein 6.2 Albumin 3.2 L Globulin 3.00 Albumin/Globulin 1.06 Ratio Test 03/12/19 11:31 Bedside Glucose 129 Medications Medication Current Medications IV Flush (NS 3 ml) 3 ml PER PROTOCOL IV ; Start 02/12/19 at 15:30 Ondansetron HCl (Zofran Inj) 4 mg Q6H PRN IV NAUSEA/VOMITING; Start 02/12/19 at 15:30 Acetaminophen (Tylenol Tab) 650 mg Q6H PRN PO .PAIN 1-3 OR TEMP Last administered on 03/04/19at 18:11; Admin Dose 650 MG; Start 02/12/19 at 15:30 Levothyroxine Sodium (Synthroid) 88 mcg BEFORE BREAKFAST PO Last administered on 03/12/19 06:16; Admin Dose 88 MCG; Start 02/15/19 at 07:00 Miscellaneous Information 1 ea NOTE XX ; Start 02/14/19 at 10:30 Glucose (Glutose) 15 gm Q15M PRN PO DECREASED GLUCOSE; Start 02/14/19 at 10:30 Glucose (Glutose) 22.5 gm Q15M PRN PO DECREASED GLUCOSE; Start 02/14/19 at 10:30 Dextrose (D50w Syringe) 25 ml Q15M PRN IV DECREASED GLUCOSE; Start 02/14/19 at 10:30 Dextrose (D50w Syringe) 50 ml Q15M PRN IV DECREASED GLUCOSE; Start 02/14/19 at 10:30 Glucagon (Glucagen) 1 mg Q15M PRN IM DECREASED GLUCOSE; Start 02/14/19 at 10:30 Glucose (Glutose) 15 gm Q15M PRN BUCCAL DECREASED GLUCOSE; Start 02/14/19 at 10:30 Bisacodyl (Dulcolax Supp) 10 mg DAILY PRN [place] CONSTIPATION Last administered on 02/21/19at 14:06; Admin Dose 10 MG; Start 02/15/19 at 11:00 IV Flush (NS 10 ml) 10 ml PRN PRN IV IV PROTOCOL; Start 02/18/19 at 15:30 Albuterol/ Ipratropium (Duoneb) 3 ml Q6H RESP THERAPY HHN Last administered on 03/12/19at 08:54; Admin Dose 3 ML; Start 03/01/19 at 14:00 Insulin Aspart (Novolog Insulin Pen) NOVOLOG *MILD* ALGORITHM WITH MEALS BEDTIME SC Last administered on 03/09/19at 17:27; Admin Dose 2 UNIT; Start 03/03/19 at 21:00 Meclizine HCl (Antivert) 12.5 mg BID PRN PO vertigo/dizziness; Start 03/05/19 at 15:30 Metoprolol Tartrate (Lopressor) 12.5 mg BID PO Last administered on 03/11/19 21:59; Admin Dose 12.5 MG; Start 03/07/19 at 14:00 Potassium Chloride (Klor-Con 20) 20 meq DAILY PO Last administered on 03/12/19 08:22; Admin Dose 20 MEQ; Start 03/09/19 at 09:00 Famotidine (Pepcid) 20 mg Q12 PO Last administered on 03/12/19 08:23; Admin Dose 20 MG; Start 03/08/19 at 21:00 Aspirin (Halfprin) 81 mg DAILY PO Last administered on 03/12/19 08:21; Admin Dose 81 MG; Start 03/10/19 at 12:00 Heparin Sodium (Porcine) 250 ml @ 18 mls/hr PER PROTOCOL IV Last administered on 03/12/19 08:39; Admin Dose 14 MLS/HR; Start 03/10/19 at 20:00 Heparin Sodium (Porcine) (Heparin (1000 Units/ml)) 3,700 unit PER PROTOCOL PRN IV aPTT<47-57; Start 03/10/19 at 22:00 Heparin Sodium (Porcine) (Heparin (1000 Units/ml)) 7,400 unit PER PROTOCOL PRN IV aPTT<47 Last administered on 03/11/19 17:44; Admin Dose 7,400 UNIT; Start 03/10/19 at 21:52 LORNA LYONS MD Mar 12, 2019 12:22
--- NOTE | 2019-03-12 12:28 | CONS ---
Assessment/Plan Assessment/Plan Hospital Course (Demo Recall) IMPRESSION: 1. Congestive heart failure-diastolic acute on chronic 2. Lower extremity edema, assess for congestive heart failure.-preserved EF 3. Tachycardia, improved, status post intubation, likely due to respiratory distress. 4. Abnormal electrocardiogram with right axis deviation and T-wave flattening. -neg trop x 3 5. Down syndrome. 6. Hypothyroidism. 7. Diabetes mellitus. 8. Obstructive sleep apnea. 9. hypotension-improved overall and stable 10. Resp distress-recurrent with now transfer to ICU 11.encephalopathy 12. Fevers 14. positive troponin-minimal in the setting of resp distress and now trended negative 15. Pulmonary embolus-saddle embolus, transferred to ICU Recc: -Now transferred to ICU -s/p course of abx, f/u cx data -continue low dose BB as tolerated only -continue asa -Continue bronchodilators -pulmonary following. HD stable at this time with no definite indication for thrombolytics at this time but situation guarded Consultation Date/Type/Reason Admit Date/Time Feb 12, 2019 at 12:24 Initial Consult Date 02/12/19 Type of Consult Cardiology Reason for Consultation SOB Requesting Provider: LORNA LYONS MD Date/Time of Note DATE: 03/12/19 TIME: 12:23 Exam/Review of Systems Vital Signs Vitals Vital Signs Date Temp Pulse Resp B/P (MAP) Pulse Ox O2 O2 Flow FiO2 Time Delivery Rate 03/12/19 77 26 99 Nasal 2.0 08:49 Cannula 03/12/19 97.5 99/56 (70) 08:00 03/12/19 35 05:56 Intake and Output 03/11/19 03/11/19 03/12/19 1515:00 23:00 07:00 IntakeIntake Total 304 ml 780 ml 93 ml OutputOutput Total 1 ml 0 ml BalanceBalance 304 ml 779 ml 93 ml Exam Exam Review of Systems: CONSTITUTIONAL: No fevers, chills. PULMONARY: mild sob CARDIOVASCULAR: No chest pain/palpitations GASTROINTESTINAL: No nausea/vomiting. GENITOURINARY: No hematuria/dysuria. MUSCULOSKELETAL: No myagias/arthalgias. PSYCHIATRIC: The patient denies depression. NEUROLOGIC: No weakness Constitutional: alert Psych: no complaints Head: normocephalic ENMT: mucosa pink and moist Neck: supple, jvd (9 cm water) Respiratory: diminished breath sounds (at bases/B) Cardiovascular: regular rate and rhythm Gastrointestinal: soft, non-tender Musculoskeletal: muscle tone (normal) Extremities: edema (trace/B) Neurological: other (developmental delay) Labs Result Diagram: 03/12/19 0658 03/12/19 0658 Results 24hrs Laboratory Tests Test 03/11/19 12:32 03/11/19 13:31 03/11/19 16:17 03/11/19 17:30 Bedside Glucose 109 139 Activated 42.0 H 44.9 H Partial Thromboplast Time Test 03/11/19 21:56 03/11/19 23:09 03/12/19 06:58 03/12/19 08:16 Bedside Glucose 123 101 Activated 116.6 *H 80.6 *H Partial Thromboplast Time White Blood Count 4.8 Red Blood Count 4.77 Hemoglobin 13.4 Hematocrit 42.9 Mean Corpuscular 89.9 Volume Mean Corpuscular 28.1 L Hemoglobin Mean Corpuscular 31.2 L Hemoglobin Concent Red Cell 20.1 H Distribution Width Platelet Count 167 Mean Platelet Volume 9.0 Immature 4.600 H Granulocytes % Neutrophils % 54.2 Lymphocytes % 26.5 Monocytes % 10.5 Eosinophils % 2.9 Basophils % 1.3 Nucleated Red Blood 0.0 Cells % Immature 0.220 H Granulocytes # Neutrophils # 2.6 Lymphocytes # 1.3 Monocytes # 0.5 Eosinophils # 0.1 Basophils # 0.1 Nucleated Red Blood 0.0 Cells # Sodium Level 137 Potassium Level 4.1 Chloride Level 98 Carbon Dioxide Level 34 H Anion Gap 5 Blood Urea Nitrogen 12 Creatinine 0.62 Est Glomerular > 60 Filtrat Rate mL/min Glucose Level 120 Calcium Level 8.9 Phosphorus Level 4.8 Magnesium Level 1.9 Total Bilirubin 0.4 Direct Bilirubin 0.00 Indirect Bilirubin 0.4 Aspartate Amino 25 Transf (AST/SGOT) Alanine 37 Aminotransferase (AL T/SGPT) Alkaline Phosphatase 58 Total Protein 6.2 Albumin 3.2 L Globulin 3.00 Albumin/Globulin 1.06 Ratio Test 03/12/19 11:31 Bedside Glucose 129 Medications Medications Current Medications IV Flush (NS 3 ml) 3 ml PER PROTOCOL IV ; Start 02/12/19 at 15:30 Ondansetron HCl (Zofran Inj) 4 mg Q6H PRN IV NAUSEA/VOMITING; Start 02/12/19 at 15:30 Acetaminophen (Tylenol Tab) 650 mg Q6H PRN PO .PAIN 1-3 OR TEMP Last administered on 03/04/19at 18:11; Admin Dose 650 MG; Start 02/12/19 at 15:30 Levothyroxine Sodium (Synthroid) 88 mcg BEFORE BREAKFAST PO Last administered on 03/12/19at 06:16; Admin Dose 88 MCG; Start 02/15/19 at 07:00 Miscellaneous Information 1 ea NOTE XX ; Start 02/14/19 at 10:30 Glucose (Glutose) 15 gm Q15M PRN PO DECREASED GLUCOSE; Start 02/14/19 at 10:30 Glucose (Glutose) 22.5 gm Q15M PRN PO DECREASED GLUCOSE; Start 02/14/19 at 10:30 Dextrose (D50w Syringe) 25 ml Q15M PRN IV DECREASED GLUCOSE; Start 02/14/19 at 10:30 Dextrose (D50w Syringe) 50 ml Q15M PRN IV DECREASED GLUCOSE; Start 02/14/19 at 10:30 Glucagon (Glucagen) 1 mg Q15M PRN IM DECREASED GLUCOSE; Start 02/14/19 at 10:30 Glucose (Glutose) 15 gm Q15M PRN BUCCAL DECREASED GLUCOSE; Start 02/14/19 at 10:30 Bisacodyl (Dulcolax Supp) 10 mg DAILY PRN [place] CONSTIPATION Last administered on 02/21/19at 14:06; Admin Dose 10 MG; Start 02/15/19 at 11:00 IV Flush (NS 10 ml) 10 ml PRN PRN IV IV PROTOCOL; Start 02/18/19 at 15:30 Albuterol/ Ipratropium (Duoneb) 3 ml Q6H RESP THERAPY HHN Last administered on 03/12/19at 08:54; Admin Dose 3 ML; Start 03/01/19 at 14:00 Insulin Aspart (Novolog Insulin Pen) NOVOLOG *MILD* ALGORITHM WITH MEALS BEDTIME SC Last administered on 03/09/19at 17:27; Admin Dose 2 UNIT; Start 03/03/19 at 21:00 Meclizine HCl (Antivert) 12.5 mg BID PRN PO vertigo/dizziness; Start 03/05/19 at 15:30 Metoprolol Tartrate (Lopressor) 12.5 mg BID PO Last administered on 03/11/19 21:59; Admin Dose 12.5 MG; Start 03/07/19 at 14:00 Potassium Chloride (Klor-Con 20) 20 meq DAILY PO Last administered on 03/12/19 08:22; Admin Dose 20 MEQ; Start 03/09/19 at 09:00 Famotidine (Pepcid) 20 mg Q12 PO Last administered on 03/12/19 08:23; Admin Dose 20 MG; Start 03/08/19 at 21:00 Aspirin (Halfprin) 81 mg DAILY PO Last administered on 03/12/19 08:21; Admin Dose 81 MG; Start 03/10/19 at 12:00 Heparin Sodium (Porcine) 250 ml @ 18 mls/hr PER PROTOCOL IV Last administered on 03/12/19 08:39; Admin Dose 14 MLS/HR; Start 03/10/19 at 20:00 Heparin Sodium (Porcine) (Heparin (1000 Units/ml)) 3,700 unit PER PROTOCOL PRN IV aPTT<47-57; Start 03/10/19 at 22:00 Heparin Sodium (Porcine) (Heparin (1000 Units/ml)) 7,400 unit PER PROTOCOL PRN IV aPTT<47 Last administered on 03/11/19at 17:44; Admin Dose 7,400 UNIT; Start 03/10/19 at 21:52 SHARIF TORRES Mar 12, 2019 12:28
--- NOTE | 2019-03-12 17:45 | RADRPT ---
Echocardiogram Report [id number] : 1990 (28y 11m)Study Date: 03/11/2019 2:02:18 PM Gender: FAccession #: [id number] Tech: Santi Arthur [facility] Location: [address] Ref.Physician: BRIAN PATTERSON Height(Cm): BSA: Weight(Kg): Quality: AdequateOrder Physician: BRIAN PATTERSON Account #: Procedures: Echocardiographic Report: Transthoracic echocardiogram examination. Indications: Eval PA Pressure. Measurements: 2D/M Mode Doppler Measurement Value Normal Range Measurement Value Normal Range LVIDd 2D 3.4 [ 3.8 - 5.2 ] cm TR Peak Saeid 3.2 [ 100.0 - 280.0 ] cm/sec LVIDs 2D 2.1 [ 2.2 - 3.5 ] cm TR Peak PG 40.0 mmHg IVSd 2D 1.1 [ 0.6 - 0.9 ] cm RVSP 43.0 [ 10.0 - 36.0 ] mmHg AoR Diam 2D 2.3 [ 2.3 - 3.1 ] cm LA Dimen 2D 2.7 [ 2.7 - 3.8 ] cm Findings: Left Ventricle: Normal left ventricular cavity size, wall thickness and systolic function. Normal left ventricular systolic function. Left ventricular wall thickness upper limits of normal. The left ventricular ejection fraction is visually estimated at 60-65 %. Right Ventricle: Normal right ventricular size. Normal right ventricular systolic function. Mild enlargement of right ventricle. Mild right ventricular hypokinesis. Flattened Septum in diastole ("D" shaped left ventricle) consistent with RV volume overload. Left Atrium: The left atrium is normal in size and appearance. Right Atrium: The right atrium is normal in size and appearance. Mitral Valve: Normal appearance and function of the mitral valve with trace physiologic regurgitation. Aortic Valve: Normal appearance and function of the aortic valve. Tricuspid Valve: Normal appearance of the tricuspid valve. The estimated Peak RVSP is 43 mmHg. There is mild tricuspid regurgitation. IVC: Normal inferior vena cava appearance and respiratory collapse. Conclusions: Normal left ventricular cavity size, wall thickness and systolic function. Normal left ventricular systolic function. Left ventricular wall thickness upper limits of normal. The left ventricular ejection fraction is visually estimated at 60-65 %. Normal right ventricular size. Normal right ventricular systolic function. Mild enlargement of right ventricle. Mild right ventricular hypokinesis. Flattened Septum in diastole ("D" shaped left ventricle) consistent with RV volume overload. Normal appearance and function of the mitral valve with trace physiologic regurgitation. Normal appearance of the tricuspid valve. The estimated Peak RVSP is 43 mmHg. There is mild tricuspid regurgitation. Electronically Signed By: Mohit Colby 2019-03-12 17:44:31 PDT
--- NOTE | 2019-03-12 18:06 | PN ---
DATE: 03/12/2019 SUBJECTIVE: Patient is awake, complaining of headache. No fevers overnight. WBC 4.8, no shift, no bands. BUN 12, creatinine 0.62. ANTIMICROBIALS: She is off antibiotics. She is on heparin. PHYSICAL EXAMINATION: GENERAL: This is a morbidly obese, well-developed, middle-aged woman who is in no distress. HEENT: Head atraumatic, normocephalic. NECK: Supple. CHEST: Rise symmetrical. Breath sounds diminished to bases. HEART: S1, S2. ABDOMEN: Soft, bowel sounds present. ASSESSMENT: 1. Acute on chronic hypoxemic respiratory failure, patient is comfortable on nasal cannula. 2. Pulmonary embolism. 3. Status post pneumonia and congestive heart failure exacerbation. 4. Diabetes. 5. Down syndrome. PLAN: The patient remains stable. Continue present care. Observe off antibiotics. Dictated By: RUDOLPH YOON [employer] CAN[employer]ER for ЕКАТЕРИНА JIMENEZ MD NI/NTS Conf#: [id number] DID#: [id number] CC: ЕКАТЕРИНА JIMENEZ MD; LORNA LYONS;*End*
[2019-03-13] VITALS (10 sets, daily range): BP systolic 103–124; BP diastolic 50–63; PULSE 80–104; RESP 18–20
[2019-03-13] MEDS: ALBUTEROL/IPRATROPIUM (NEB) 3 ML AMP HHN SCH ×4 (01:32→20:40)
[2019-03-13] MEDS: HEPARIN 25000 UNITS/250 ML 250 ML IV SCH ×2 (05:06→07:39)
[2019-03-13] MEDS: LEVOTHYROXINE 88 MCG TAB PO SCH (06:01)
[2019-03-13] MEDS: INSULIN ASPART [NOVOLOG] 3 ML PEN SC SCH ×4 (07:45→21:00)
[2019-03-13] MEDS: ASPIRIN (EC) 81 MG TAB PO SCH (08:12)
[2019-03-13] MEDS: FAMOTIDINE 20 MG TAB PO SCH ×2 (08:12→21:06)
[2019-03-13] MEDS: METOPROLOL 25 MG TAB PO SCH ×2 (08:13→21:06)
--- NOTE | 2019-03-13 11:42 | CONS ---
Consult Date/Type/Reason Admit Date/Time Feb 12, 2019 at 12:24 Initial Consult Date Type of Consult Pulmonary Requesting Provider: LORNA LYONS MD Date/Time of Note DATE: 03/13/19 TIME: 11:41 Subjective Comfortable this morning no respiratory distress. Objective Vital Signs Date Temp Pulse Resp B/P (MAP) Pulse Ox O2 O2 Flow FiO2 Time Delivery Rate 03/13/19 98.0 94 18 118/57 96 Room Air 11:05 (77) 03/13/19 3.0 07:50 03/13/19 35 03:57 Intake and Output 03/12/19 03/12/19 03/13/19 1515:00 23:00 07:00 IntakeIntake Total 560 ml 284 ml 446 ml OutputOutput Total 1 ml BalanceBalance 560 ml 283 ml 446 ml Exam GENERAL: Well-nourished well-developed gentleman comfortable at rest VITAL SIGNS: per chart NECK: Supple. No JVD or lymphadenopathy. CARDIAC EXAM: S1, S2. No added sounds or murmurs. CHEST: Diminished air entry at bases ABDOMEN: Soft, nontender. No guarding or rebound. EXTREMITIES: No cyanosis, clubbing or edema. NEUROLOGIC: Generalized weakness. No focal deficits. Vent Setting Ventilator Support Mode: CPAP, PS Fraction of Inspired Oxygen pe: 21 Positive End Expiratory Pressu: 5.0 Results/Medications Result Diagram: 03/13/1914 03/13/1914 Results 24 hrs Laboratory Tests Test 03/12/19 14:33 03/12/19 17:17 03/12/19 20:42 03/13/19 06:14 Activated 71.0 *H 49.7 H Partial Thromboplast Time Bedside Glucose 109 125 White Blood Count 4.8 Red Blood Count 4.65 Hemoglobin 12.9 Hematocrit 42.1 Mean Corpuscular 90.5 Volume Mean Corpuscular 27.7 L Hemoglobin Mean Corpuscular 30.6 L Hemoglobin Concent Red Cell Distribution 20.4 H Width Platelet Count 187 Mean Platelet Volume 9.8 Immature Granulocytes 5.100 H % Neutrophils % Segmented Neutrophils 46 % (Manual) Band Neutrophils % 10 H (Manual) Lymphocytes % Lymphocytes % 30 (Manual) Monocytes % Monocytes % (Manual) 9 Eosinophils % Eosinophils % 2 (Manual) Basophils % Metamyelocytes % 2 H (manual) Promyelocytes % 1 H (Manual) Nucleated Red Blood 1 H Cells % Immature Granulocytes 0.240 H # Neutrophils # Neutrophils # 2.2 (Manual) Band Neutrophils # 0.4 Lymphocytes (Manual) 1.4 Lymphocytes # Monocytes # Monocytes # (Manual) 0.4 Eosinophils # Basophils # Metamyelocytes # 0.0 Promyelocytes # 0.0 Nucleated Red Blood Cells # Platelet Estimate NORMAL Giant Platelets 2 H Polychromasia 1+ Anisocytosis 1+ Microcytosis 1+ Spherocytes 1+ Sodium Level 137 Potassium Level 3.5 Chloride Level 100 Carbon Dioxide Level 32 H Anion Gap 5 Blood Urea Nitrogen 10 Creatinine 0.59 Est Glomerular > 60 Filtrat Rate mL/min Glucose Level 105 Calcium Level 9.3 Phosphorus Level 5.1 H Magnesium Level 1.9 Test 03/13/19 07:44 03/13/19 11:28 Bedside Glucose 124 107 Medications Current Medications IV Flush (NS 3 ml) 3 ml PER PROTOCOL IV ; Start 02/12/19 at 15:30 Ondansetron HCl (Zofran Inj) 4 mg Q6H PRN IV NAUSEA/VOMITING; Start 02/12/19 at 15:30 Acetaminophen (Tylenol Tab) 650 mg Q6H PRN PO .PAIN 1-3 OR TEMP Last administered on 03/04/19at 18:11; Admin Dose 650 MG; Start 02/12/19 at 15:30 Levothyroxine Sodium (Synthroid) 88 mcg BEFORE BREAKFAST PO Last administered on 03/13/19at 06:01; Admin Dose 88 MCG; Start 02/15/19 at 07:00 Miscellaneous Information 1 ea NOTE XX ; Start 02/14/19 at 10:30 Glucose (Glutose) 15 gm Q15M PRN PO DECREASED GLUCOSE; Start 02/14/19 at 10:30 Glucose (Glutose) 22.5 gm Q15M PRN PO DECREASED GLUCOSE; Start 02/14/19 at 10:30 Dextrose (D50w Syringe) 25 ml Q15M PRN IV DECREASED GLUCOSE; Start 02/14/19 at 10:30 Dextrose (D50w Syringe) 50 ml Q15M PRN IV DECREASED GLUCOSE; Start 02/14/19 at 10:30 Glucagon (Glucagen) 1 mg Q15M PRN IM DECREASED GLUCOSE; Start 02/14/19 at 10:30 Glucose (Glutose) 15 gm Q15M PRN BUCCAL DECREASED GLUCOSE; Start 02/14/19 at 10:30 Bisacodyl (Dulcolax Supp) 10 mg DAILY PRN [place] CONSTIPATION Last administered on 02/21/19 14:06; Admin Dose 10 MG; Start 02/15/19 at 11:00 IV Flush (NS 10 ml) 10 ml PRN PRN IV IV PROTOCOL; Start 02/18/19 at 15:30 Albuterol/ Ipratropium (Duoneb) 3 ml Q6H RESP THERAPY HHN Last administered on 03/13/19 07:56; Admin Dose 3 ML; Start 03/01/19 at 14:00 Insulin Aspart (Novolog Insulin Pen) NOVOLOG *MILD* ALGORITHM WITH MEALS BEDTIME SC Last administered on 03/09/19 17:27; Admin Dose 2 UNIT; Start at 21:00 Meclizine HCl (Antivert) 12.5 mg BID PRN PO vertigo/dizziness; Start 03/05/19 at 15:30 Metoprolol Tartrate (Lopressor) 12.5 mg BID PO Last administered on 03/13/19 08:13; Admin Dose 12.5 MG; Start 03/07/19 at 14:00 Famotidine (Pepcid) 20 mg Q12 PO Last administered on 03/13/19 08:12; Admin Dose 20 MG; Start 03/08/19 at 21:00 Aspirin (Halfprin) 81 mg DAILY PO Last administered on 03/13/19 08:12; Admin Dose 81 MG; Start 03/10/19 at 12:00 Heparin Sodium (Porcine) 250 ml @ 18 mls/hr PER PROTOCOL IV Last administered on 03/13/19 07:39; Admin Dose 17 MLS/HR; Start 03/10/19 at 20:00 Heparin Sodium (Porcine) (Heparin (1000 Units/ml)) 3,700 unit PER PROTOCOL PRN IV aPTT<47-57 Last administered on 03/13/19 07:39; Admin Dose 3,700 UNIT; Start 03/10/19 at 22:00 Heparin Sodium (Porcine) (Heparin (1000 Units/ml)) 7,400 unit PER PROTOCOL PRN IV aPTT<47 Last administered on 03/11/19 17:44; Admin Dose 7,400 UNIT; Start 03/10/19 at 21:52 Assessment/Plan Hospital Course (Demo Recall) IMP: 1. s/p Hypoxemic Respiratory Failure:s/p pneumonia. Repeat chest x-ray rule out worsening CHF versus aspiration 2. DVT and large saddle embolus with worsening hypoxemia no hemodynamic instability therefore patient did not receive TPA 3. EILEEN 4. HTN 5. DM RECS: 1. Aspiration precautions 2. PT/Ot 3. BDs prn 4. Continue anticoagulation. MARY ANN MCKEON MD, [facility] Mar 13, 2019 11:42
--- NOTE | 2019-03-13 13:06 | CONS ---
Assessment/Plan Assessment/Plan Hospital Course (Demo Recall) IMPRESSION: 1. Congestive heart failure-diastolic acute on chronic 2. Lower extremity edema, assess for congestive heart failure.-preserved EF 3. Tachycardia, improved, status post intubation, likely due to respiratory distress. 4. Abnormal electrocardiogram with right axis deviation and T-wave flattening. -neg trop x 3 5. Down syndrome. 6. Hypothyroidism. 7. Diabetes mellitus. 8. Obstructive sleep apnea. 9. hypotension-improved overall and stable 10. Resp distress-recurrent with now transfer to ICU 11.encephalopathy 12. Fevers 14. positive troponin-minimal in the setting of resp distress and now trended negative 15. Pulmonary embolus-saddle embolus, Echo 03/12 with some RV hypokinesis and pressure/volume overload but patient HD stable at this time without resp distress Recc: -Now transferred back to [facility] -s/p course of abx, f/u cx data -continue low dose BB as tolerated only -continue asa -Continue bronchodilators -Continue IV heparin -pulmonary following. HD stable at this time with no definite indication for thrombolytics at this time but situation guarded Consultation Date/Type/Reason Admit Date/Time Feb 12, 2019 at 12:24 Initial Consult Date 02/12/19 Type of Consult Cardiology Reason for Consultation Chest pain Requesting Provider: LORNA LYONS MD Date/Time of Note DATE: 03/13/19 TIME: 13:03 Exam/Review of Systems Vital Signs Vitals Vital Signs Date Temp Pulse Resp B/P (MAP) Pulse Ox O2 O2 Flow FiO2 Time Delivery Rate 03/13/19 98.0 94 18 118/57 96 Room Air 11:05 (77) 03/13/19 3.0 07:50 03/13/19 35 03:57 Intake and Output 03/12/19 03/12/19 03/13/19 1515:00 23:00 07:00 IntakeIntake Total 560 ml 284 ml 446 ml OutputOutput Total 1 ml BalanceBalance 560 ml 283 ml 446 ml Exam Exam Review of Systems: CONSTITUTIONAL: No fevers, chills. PULMONARY: No sob CARDIOVASCULAR: No chest pain/palpitations GASTROINTESTINAL: No nausea/vomiting. GENITOURINARY: No hematuria/dysuria. MUSCULOSKELETAL: No myagias/arthalgias. PSYCHIATRIC: The patient denies depression. NEUROLOGIC: No weakness Constitutional: alert Psych: no complaints Head: normocephalic ENMT: mucosa pink and moist Neck: supple, jvd (8 cm water) Respiratory: diminished breath sounds (at bases/B) Cardiovascular: regular rate and rhythm Gastrointestinal: soft, non-tender Musculoskeletal: muscle tone (normal) Extremities: edema (trace/B) Neurological: other (developmental delay) Labs Result Diagram: 03/13/19 0614 03/13/19 0614 Results 24hrs Laboratory Tests Test 03/12/19 14:33 03/12/19 17:17 03/12/19 20:42 03/13/19 06:14 Activated 71.0 *H 49.7 H Partial Thromboplast Time Bedside Glucose 109 125 White Blood Count 4.8 Red Blood Count 4.65 Hemoglobin 12.9 Hematocrit 42.1 Mean Corpuscular 90.5 Volume Mean Corpuscular 27.7 L Hemoglobin Mean Corpuscular 30.6 L Hemoglobin Concent Red Cell Distribution 20.4 H Width Platelet Count 187 Mean Platelet Volume 9.8 Immature Granulocytes 5.100 H % Neutrophils % Segmented Neutrophils 46 % (Manual) Band Neutrophils % 10 H (Manual) Lymphocytes % Lymphocytes % 30 (Manual) Monocytes % Monocytes % (Manual) 9 Eosinophils % Eosinophils % 2 (Manual) Basophils % Metamyelocytes % 2 H (manual) Promyelocytes % 1 H (Manual) Nucleated Red Blood 1 H Cells % Immature Granulocytes 0.240 H # Neutrophils # Neutrophils # 2.2 (Manual) Band Neutrophils # 0.4 Lymphocytes (Manual) 1.4 Lymphocytes # Monocytes # Monocytes # (Manual) 0.4 Eosinophils # Basophils # Metamyelocytes # 0.0 Promyelocytes # 0.0 Nucleated Red Blood Cells # Platelet Estimate NORMAL Giant Platelets 2 H Polychromasia 1+ Anisocytosis 1+ Microcytosis 1+ Spherocytes 1+ Sodium Level 137 Potassium Level 3.5 Chloride Level 100 Carbon Dioxide Level 32 H Anion Gap 5 Blood Urea Nitrogen 10 Creatinine 0.59 Est Glomerular > 60 Filtrat Rate mL/min Glucose Level 105 Calcium Level 9.3 Phosphorus Level 5.1 H Magnesium Level 1.9 Test 03/13/19 07:44 03/13/19 11:28 Bedside Glucose 124 107 Medications Medications Current Medications IV Flush (NS 3 ml) 3 ml PER PROTOCOL IV ; Start 02/12/19 at 15:30 Ondansetron HCl (Zofran Inj) 4 mg Q6H PRN IV NAUSEA/VOMITING; Start 02/12/19 at 15:30 Acetaminophen (Tylenol Tab) 650 mg Q6H PRN PO .PAIN 1-3 OR TEMP Last administered on 03/04/19at 18:11; Admin Dose 650 MG; Start 02/12/19 at 15:30 Levothyroxine Sodium (Synthroid) 88 mcg BEFORE BREAKFAST PO Last administered on 03/13/19at 06:01; Admin Dose 88 MCG; Start 02/15/19 at 07:00 Miscellaneous Information 1 ea NOTE XX ; Start 02/14/19 at 10:30 Glucose (Glutose) 15 gm Q15M PRN PO DECREASED GLUCOSE; Start 02/14/19 at 10:30 Glucose (Glutose) 22.5 gm Q15M PRN PO DECREASED GLUCOSE; Start 02/14/19 at 10:30 Dextrose (D50w Syringe) 25 ml Q15M PRN IV DECREASED GLUCOSE; Start 02/14/19 at 10:30 Dextrose (D50w Syringe) 50 ml Q15M PRN IV DECREASED GLUCOSE; Start 02/14/19 at 10:30 Glucagon (Glucagen) 1 mg Q15M PRN IM DECREASED GLUCOSE; Start 02/14/19 at 10:30 Glucose (Glutose) 15 gm Q15M PRN BUCCAL DECREASED GLUCOSE; Start 02/14/19 at 10:30 Bisacodyl (Dulcolax Supp) 10 mg DAILY PRN [place] CONSTIPATION Last administered on 02/21/19at 14:06; Admin Dose 10 MG; Start 02/15/19 at 11:00 IV Flush (NS 10 ml) 10 ml PRN PRN IV IV PROTOCOL; Start 02/18/19 at 15:30 Albuterol/ Ipratropium (Duoneb) 3 ml Q6H RESP THERAPY HHN Last administered on 03/13/19at 07:56; Admin Dose 3 ML; Start 03/01/19 at 14:00 Insulin Aspart (Novolog Insulin Pen) NOVOLOG *MILD* ALGORITHM WITH MEALS BEDTIME SC Last administered on 03/09/19at 17:27; Admin Dose 2 UNIT; Start 03/03/19 at 21:00 Meclizine HCl (Antivert) 12.5 mg BID PRN PO vertigo/dizziness; Start 03/05/19 at 15:30 Metoprolol Tartrate (Lopressor) 12.5 mg BID PO Last administered on 03/13/19 08:13; Admin Dose 12.5 MG; Start 03/07/19 at 14:00 Famotidine (Pepcid) 20 mg Q12 PO Last administered on 03/13/19 08:12; Admin D ose 20 MG; Start 03/08/19 at 21:00 Aspirin (Halfprin) 81 mg DAILY PO Last administered on 03/13/19 08:12; Admin Dose 81 MG; Start 03/10/19 at 12:00 Heparin Sodium (Porcine) 250 ml @ 18 mls/hr PER PROTOCOL IV Last administered on 03/13/19 07:39; Admin Dose 17 MLS/HR; Start 03/10/19 at 20:00 Heparin Sodium (Porcine) (Heparin (1000 Units/ml)) 3,700 unit PER PROTOCOL PRN IV aPTT<47-57 Last administered on 03/13/19at 07:39; Admin Dose 3,700 UNIT; Start 03/10/19 at 22:00 Heparin Sodium (Porcine) (Heparin (1000 Units/ml)) 7,400 unit PER PROTOCOL PRN IV aPTT<47 Last administered on 03/11/19at 17:44; Admin Dose 7,400 UNIT; Start 03/10/19 at 21:52 SHARIF TORRES Mar 13, 2019 13:06
--- NOTE | 2019-03-13 15:32 | CONS ---
Assessment/Plan Assessment/Plan Hospital Course (Demo Recall) SUBJECTIVE: Transferred to telemetry awake looks comfortable no fevers ANTIMICROBIALS: She is off antibiotics. PHYSICAL EXAMINATION: GENERAL: This is a morbidly obese, well-developed, middle-aged woman who is in no distress. HEENT: Head atraumatic, normocephalic. NECK: Supple. CHEST: Rise symmetrical. Breath sounds diminished to bases. HEART: S1, S2. ABDOMEN: Soft, bowel sounds present. ASSESSMENT: 1. Status post respiratory failure . 2. Pulmonary embolism. 3. Status post pneumonia and congestive heart failure exacerbation. 4. Diabetes. 5. Down syndrome. PLAN: The patient remains stable. Continue present care. Observe off antibiotics. Continue blood thinners Consultation Date/Type/Reason Admit Date/Time Feb 12, 2019 at 12:24 Initial Consult Date Type of Consult id Requesting Provider: LORNA LYONS MD Date/Time of Note DATE: 03/13/19 TIME: 15:31 Exam/Review of Systems Exam Vitals Vital Signs Date Temp Pulse Resp B/P (MAP) Pulse Ox O2 O2 Flow FiO2 Time Delivery Rate 03/13/19 79 22 98 Nasal 2.0 14:50 Cannula 03/13/19 98.0 118/57 11:05 (77) 03/13/19 35 03:57 Intake and Output 03/12/19 03/12/19 03/13/19 1515:00 23:00 07:00 IntakeIntake Total 560 ml 284 ml 446 ml OutputOutput Total 1 ml BalanceBalance 560 ml 283 ml 446 ml Results Result Diagram: 03/13/19 0614 03/13/19 0614 Results 24hrs Laboratory Tests Test 03/12/19 17:17 03/12/19 20:42 03/13/19 06:14 03/13/19 07:44 Bedside Glucose 109 125 124 White Blood Count 4.8 Red Blood Count 4.65 Hemoglobin 12.9 Hematocrit 42.1 Mean Corpuscular 90.5 Volume Mean Corpuscular 27.7 L Hemoglobin Mean Corpuscular 30.6 L Hemoglobin Concent Red Cell Distribution 20.4 H Width Platelet Count 187 Mean Platelet Volume 9.8 Immature Granulocytes 5.100 H % Neutrophils % Segmented Neutrophils 46 % (Manual) Band Neutrophils % 10 H (Manual) Lymphocytes % Lymphocytes % (Manual) 30 Monocytes % Monocytes % (Manual) 9 Eosinophils % Eosinophils % (Manual) 2 Basophils % Metamyelocytes % 2 H (manual) Promyelocytes % 1 H (Manual) Nucleated Red Blood 1 H Cells % Immature Granulocytes 0.240 H # Neutrophils # Neutrophils # (Manual) 2.2 Band Neutrophils # 0.4 Lymphocytes (Manual) 1.4 Lymphocytes # Monocytes # Monocytes # (Manual) 0.4 Eosinophils # Basophils # Metamyelocytes # 0.0 Promyelocytes # 0.0 Nucleated Red Blood Cells # Platelet Estimate NORMAL Giant Platelets 2 H Polychromasia 1+ Anisocytosis 1+ Microcytosis 1+ Spherocytes 1+ Activated 49.7 H Partial Thromboplast Time Sodium Level 137 Potassium Level 3.5 Chloride Level 100 Carbon Dioxide Level 32 H Anion Gap 5 Blood Urea Nitrogen 10 Creatinine 0.59 Est Glomerular Filtrat > 60 Rate mL/min Glucose Level 105 Calcium Level 9.3 Phosphorus Level 5.1 H Magnesium Level 1.9 Test 03/13/19 11:28 Bedside Glucose 107 Medications Medication Current Medications IV Flush (NS 3 ml) 3 ml PER PROTOCOL IV ; Start 02/12/19 at 15:30 Ondansetron HCl (Zofran Inj) 4 mg Q6H PRN IV NAUSEA/VOMITING; Start 02/12/19 at 15:30 Acetaminophen (Tylenol Tab) 650 mg Q6H PRN PO .PAIN 1-3 OR TEMP Last adminis tered on 03/04/19at 18:11; Admin Dose 650 MG; Start 02/12/19 at 15:30 Levothyroxine Sodium (Synthroid) 88 mcg BEFORE BREAKFAST PO Last administered on 03/13/19at 06:01; Admin Dose 88 MCG; Start 02/15/19 at 07:00 Miscellaneous Information 1 ea NOTE XX ; Start 02/14/19 at 10:30 Glucose (Glutose) 15 gm Q15M PRN PO DECREASED GLUCOSE; Start 02/14/19 at 10:30 Glucose (Glutose) 22.5 gm Q15M PRN PO DECREASED GLUCOSE; Start 02/14/19 at 10:30 Dextrose (D50w Syringe) 25 ml Q15M PRN IV DECREASED GLUCOSE; Start 02/14/19 at 10:30 Dextrose (D50w Syringe) 50 ml Q15M PRN IV DECREASED GLUCOSE; Start 02/14/19 at 10:30 Glucagon (Glucagen) 1 mg Q15M PRN IM DECREASED GLUCOSE; Start 02/14/19 at 10:30 Glucose (Glutose) 15 gm Q15M PRN BUCCAL DECREASED GLUCOSE; Start 02/14/19 at 10:30 Bisacodyl (Dulcolax Supp) 10 mg DAILY PRN [place] CONSTIPATION Last administered on 02/21/19 14:06; Admin Dose 10 MG; Start 02/15/19 at 11:00 IV Flush (NS 10 ml) 10 ml PRN PRN IV IV PROTOCOL; Start 02/18/19 at 15:30 Albuterol/ Ipratropium (Duoneb) 3 ml Q6H RESP THERAPY HHN Last administered on 03/13/19 14:54; Admin Dose 3 ML; Start 03/01/19 at 14:00 Insulin Aspart (Novolog Insulin Pen) NOVOLOG *MILD* ALGORITHM WITH MEALS BEDTIME SC Last administered on 03/09/19 17:27; Admin Dose 2 UNIT; Start 03/03/19 at 21:00 Meclizine HCl (Antivert) 12.5 mg BID PRN PO vertigo/dizziness; Start 03/05/19 at 15:30 Metoprolol Tartrate (Lopressor) 12.5 mg BID PO Last administered on 03/13/19 08:13; Admin Dose 12.5 MG; Start 03/07/19 at 14:00 Famotidine (Pepcid) 20 mg Q12 PO Last administered on 03/13/19 08:12; Admin Dose 20 MG; Start 03/08/19 at 21:00 Aspirin (Halfprin) 81 mg DAILY PO Last administered on 03/13/19 08:12; Admin Dose 81 MG; Start 03/10/19 at 12:00 Heparin Sodium (Porcine) 250 ml @ 18 mls/hr PER PROTOCOL IV Last administered on 03/13/19 07:39; Admin Dose 17 MLS/HR; Start 03/10/19 at 20:00 Heparin Sodium (Porcine) (Heparin (1000 Units/ml)) 3,700 unit PER PROTOCOL PRN IV aPTT<47-57 Last administered on 03/13/19 07:39; Admin Dose 3,700 UNIT; Start 03/10/19 at 22:00 Heparin Sodium (Porcine) (Heparin (1000 Units/ml)) 7,400 unit PER PROTOCOL PRN IV aPTT<47 Last administered on 03/11/19at 17:44; Admin Dose 7,400 UNIT; Start 03/10/19 at 21:52 RUDOLPH YOON NP Mar 13, 2019 15:32
--- NOTE | 2019-03-13 19:16 | PN ---
Date/Time of Note Date/Time of Note DATE: 03/13/19 TIME: 19:14 Assessment/Plan VTE Prophylaxis Risk score (from Ns)>0 risk: 8 SCD applied (from Ns): No SCD contraindicated: DVT Pharmacological prophylaxis: heparin Lines/Catheters IV Catheter Type (from [facility]): PICC Line Central line still needed: Yes Urinary Cath still in place: No Assessment/Plan Assessment/Plan Assessment/Plan #large saddle pulmonary embolus straddling both main pulmonary arteries with large amount of clot burden extending into both lower lobe pulmonary arteries. A small amount of nonocclusive clot is also noted in the right upper lobe pulmonary artery. There is evidence of right heart strain with enlargement of the right ventricle # Wedge-shaped area of consolidation in the right lower lobe may represent an area of pulmonary infarct with rt sided chest pain/abdominal pain #Positive troponin with an episode of chest pain and shortness of breath, EKG showed sinus tachycardia, ABG showed marked hypoxia even though the chest x-ray is not showing much disease . She has been nonambulatory # Severe altered mental status likely secondary to metabolic encephalopathy, likely secondary to CO2 narcosis. pt is alert, oriented 2 #. Hypoxic respiratory failure, resolving, still on supplemental oxygen #. Respiratory alkalosis, no ABG today #. Morbid obesity. # Down syndrome. #. Hypertension, now normotensive. #. Diabetes mellitus type II blood sugar controled. # History of ventral hernia repair. #. Leukocytosis secondary to pneumonia, resolved #. Hypothyroidism 11. KIRIT, more likely due to sepsis, resolved Assessment/Plan -Patient is has a large PE, hemodynamically stable> spoke to Dr Sagastume will hold off thrombolytics - cw heparin gtt, pt was refusing scd on floor and PT but was on lovenox, the admission lower extremity ultrasound was negative for DVT but now patient has a DVT of the left leg - incentive spirometry for atelactalsis - cw asa/MTP - will check with pulm for how long to continue heparin and when to repeat CT s can - fu cards/pul recs - cw levothyroxine supplement - GI Famotidine BID - hOLD PT now due to large blood clot Result Diagram: Result Diagram: 03/13/19 0614 03/13/1914 Results 24hrs Laboratory Tests Test 03/12/19 20:42 03/13/19 06:14 03/13/19 07:44 03/13/19 11:28 Bedside Glucose 125 124 107 White Blood Count 4.8 Red Blood Count 4.65 Hemoglobin 12.9 Hematocrit 42.1 Mean Corpuscular Volume 90.5 Mean Corpuscular 27.7 L Hemoglobin Mean Corpuscular 30.6 L Hemoglobin Concent Red Cell Distribution 20.4 H Width Platelet Count 187 Mean Platelet Volume 9.8 Immature Granulocytes % 5.100 H Neutrophils % Segmented Neutrophils 46 % (Manual) Band Neutrophils % 10 H (Manual) Lymphocytes % Lymphocytes % (Manual) 30 Monocytes % Monocytes % (Manual) 9 Eosinophils % Eosinophils % (Manual) 2 Basophils % Metamyelocytes % 2 H (manual) Promyelocytes % 1 H (Manual) Nucleated Red Blood 1 H Cells % Immature Granulocytes # 0.240 H Neutrophils # Neutrophils # (Manual) 2.2 Band Neutrophils # 0.4 Lymphocytes (Manual) 1.4 Lymphocytes # Monocytes # Monocytes # (Manual) 0.4 Eosinophils # Basophils # Metamyelocytes # 0.0 Promyelocytes # 0.0 Nucleated Red Blood Cells # Platelet Estimate NORMAL Giant Platelets 2 H Polychromasia 1+ Anisocytosis 1+ Microcytosis 1+ Spherocytes 1+ Activated 49.7 H Partial Thromboplast Time Sodium Level 137 Potassium Level 3.5 Chloride Level 100 Carbon Dioxide Level 32 H Anion Gap 5 Blood Urea Nitrogen 10 Creatinine 0.59 Est Glomerular Filtrat > 60 Rate mL/min Glucose Level 105 Calcium Level 9.3 Phosphorus Level 5.1 H Magnesium Level 1.9 Test 03/13/19 14:24 03/13/19 17:28 Activated 88.5 *H Partial Thromboplast Time Bedside Glucose 103 Subjective 24 Hr Interval Summary Free Text/Dictation pt better today per mother Exam/Review of Systems Exam Vitals Vital Signs Date Temp Pulse Resp B/P (MAP) Pulse Ox O2 O2 Flow FiO2 Time Delivery Rate 03/13/19 98.3 97 18 110/50 98 Nasal 15:43 (70) Cannula 03/13/19 2.0 14:50 03/13/19 35 03:57 Intake and Output 03/12/19 03/12/19 03/13/19 1515:00 23:00 07:00 IntakeIntake Total 560 ml 284 ml 446 ml OutputOutput Total 1 ml BalanceBalance 560 ml 283 ml 446 ml Exam thick neck. General awake alert oriented somewhat anxious clear To auscultate Heart regular rate rhythm abdomen: obese, +soft small extremities, 1+edema Neuro exam nonfocal Results Results 24hrs Laboratory Tests Test 03/12/19 20:42 03/13/19 06:14 03/13/19 07:44 03/13/19 11:28 Bedside Glucose 125 124 107 White Blood Count 4.8 Red Blood Count 4.65 Hemoglobin 12.9 Hematocrit 42.1 Mean Corpuscular Volume 90.5 Mean Corpuscular 27.7 L Hemoglobin Mean Corpuscular 30.6 L Hemoglobin Concent Red Cell Distribution 20.4 H Width Platelet Count 187 Mean Platelet Volume 9.8 Immature Granulocytes % 5.100 H Neutrophils % Segmented Neutrophils 46 % (Manual) Band Neutrophils % 10 H (Manual) Lymphocytes % Lymphocytes % (Manual) 30 Monocytes % Monocytes % (Manual) 9 Eosinophils % Eosinophils % (Manual) 2 Basophils % Metamyelocytes % 2 H (manual) Promyelocytes % 1 H (Manual) Nucleated Red Blood 1 H Cells % Immature Granulocytes # 0.240 H Neutrophils # Neutrophils # (Manual) 2.2 Band Neutrophils # 0.4 Lymphocytes (Manual) 1.4 Lymphocytes # Monocytes # Monocytes # (Manual) 0.4 Eosinophils # Basophils # Metamyelocytes # 0.0 Promyelocytes # 0.0 Nucleated Red Blood Cells # Platelet Estimate NORMAL Giant Platelets 2 H Polychromasia 1+ Anisocytosis 1+ Microcytosis 1+ Spherocytes 1+ Activated 49.7 H Partial Thromboplast Time Sodium Level 137 Potassium Level 3.5 Chloride Level 100 Carbon Dioxide Level 32 H Anion Gap 5 Blood Urea Nitrogen 10 Creatinine 0.59 Est Glomerular Filtrat > 60 Rate mL/min Glucose Level 105 Calcium Level 9.3 Phosphorus Level 5.1 H Magnesium Level 1.9 Test 03/13/19 14:24 03/13/19 17:28 Activated 88.5 *H Partial Thromboplast Time Bedside Glucose 103 Medications Medication Current Medications IV Flush (NS 3 ml) 3 ml PER PROTOCOL IV ; Start 02/12/19 at 15:30 Ondansetron HCl (Zofran Inj) 4 mg Q6H PRN IV NAUSEA/VOMITING; Start 02/12/19 at 15:30 Acetaminophen (Tylenol Tab) 650 mg Q6H PRN PO .PAIN 1-3 OR TEMP Last administered on 03/04/19at 18:11; Admin Dose 650 MG; Start 02/12/19 at 15:30 Levothyroxine Sodium (Synthroid) 88 mcg BEFORE BREAKFAST PO Last administered on 03/13/19at 06:01; Admin Dose 88 MCG; Start 02/15/19 at 07:00 Miscellaneous Information 1 ea NOTE XX ; Start 02/14/19 at 10:30 Glucose (Glutose) 15 gm Q15M PRN PO DECREASED GLUCOSE; Start 02/14/19 at 10:30 Glucose (Glutose) 22.5 gm Q15M PRN PO DECREASED GLUCOSE; Start 02/14/19 at 10:30 Dextrose (D50w Syringe) 25 ml Q15M PRN IV DECREASED GLUCOSE; Start 02/14/19 at 10:30 Dextrose (D50w Syringe) 50 ml Q15M PRN IV DECREASED GLUCOSE; Start 02/14/19 at 10:30 Glucagon (Glucagen) 1 mg Q15M PRN IM DECREASED GLUCOSE; Start 02/14/19 at 10:30 Glucose (Glutose) 15 gm Q15M PRN BUCCAL DECREASED GLUCOSE; Start 02/14/19 at 10:30 Bisacodyl (Dulcolax Supp) 10 mg DAILY PRN [place] CONSTIPATION Last administered on 02/21/19at 14:06; Admin Dose 10 MG; Start 02/15/19 at 11:00 IV Flush (NS 10 ml) 10 ml PRN PRN IV IV PROTOCOL; Start 02/18/19 at 15:30 Albuterol/ Ipratropium (Duoneb) 3 ml Q6H RESP THERAPY HHN Last administered on 03/13/19at 14:54; Admin Dose 3 ML; Start 03/01/19 at 14:00 Insulin Aspart (Novolog Insulin Pen) NOVOLOG *MILD* ALGORITHM WITH MEALS BEDTIME SC Last administered on 03/09/19at 17:27; Admin Dose 2 UNIT; Start 03/03/19 at 21:00 Meclizine HCl (Antivert) 12.5 mg BID PRN PO vertigo/dizziness; Start 03/05/19 at 15:30 Metoprolol Tartrate (Lopressor) 12.5 mg BID PO Last administered on 03/13/19at 08:13; Admin Dose 12.5 MG; Start 03/07/19 at 14:00 Famotidine (Pepcid) 20 mg Q12 PO Last administered on 03/13/19 08:12; Admin Dose 20 MG; Start 03/08/19 at 21:00 Aspirin (Halfprin) 81 mg DAILY PO Last administered on 03/13/19 08:12; Admin Dose 81 MG; Start 03/10/19 at 12:00 Heparin Sodium (Porcine) 250 ml @ 18 mls/hr PER PROTOCOL IV Last administered on 03/13/19 07:39; Admin Dose 17 MLS/HR; Start 03/10/19 at 20:00 Heparin Sodium (Porcine) (Heparin (1000 Units/ml)) 3,700 unit PER PROTOCOL PRN IV aPTT<47-57 Last administered on 03/13/19 07:39; Admin Dose 3,700 UNIT; Start 03/10/19 at 22:00 Heparin Sodium (Porcine) (Heparin (1000 Units/ml)) 7,400 unit PER PROTOCOL PRN IV aPTT<47 Last administered on 03/11/19at 17:44; Admin Dose 7,400 UNIT; Start 03/10/19 at 21:52 LORNA LYONS MD Mar 13, 2019 19:16
[2019-03-14] VITALS (11 sets, daily range): BP systolic 99–115; BP diastolic 48–58; PULSE 73–97; RESP 18–20
[2019-03-14] MEDS: ALBUTEROL/IPRATROPIUM (NEB) 3 ML AMP HHN SCH ×4 (02:40→20:00)
[2019-03-14] MEDS: LEVOTHYROXINE 88 MCG TAB PO SCH (05:58)
[2019-03-14] MEDS: INSULIN ASPART [NOVOLOG] 3 ML PEN SC SCH ×4 (07:55→20:31)
[2019-03-14] MEDS: FAMOTIDINE 20 MG TAB PO SCH ×2 (08:20→20:31)
[2019-03-14] MEDS: ASPIRIN (EC) 81 MG TAB PO SCH (08:20)
[2019-03-14] MEDS: METOPROLOL 25 MG TAB PO SCH ×2 (08:21→20:22)
--- NOTE | 2019-03-14 11:49 | CONS ---
Consultation Date/Type/Reason Admit Date/Time Feb 12, 2019 at 12:24 Initial Consult Date Type of Consult Pulmonary/critical care Patient's condition remains critical. Still on fairly high FiO2. Patient however has remained hemodynamically stable. Patient does become agitated off sedation. General exam; young female, morbidly obese, orally intubated and sedated. Currently in no distress. Requesting Provider: LORNA LYONS MD Date/Time of Note DATE: 03/14/19 TIME: 11:47 24 HR Interval Summary Free Text/Dictation Patient's condition is stable. Denies any shortness of breath, coughing, sputum production. General exam; young woman, awake alert, currently no distress. Patient is appropriately conversant. H ENT exam; supple neck, no JVD. No lymphadenopathy. Midline trachea. No thyromegaly. No neck masses. Chest exam; clear to auscultation. S1-S2 audible, no murmurs. Regular rhythm. No gallop. Abdomen exam; soft, protuberant. Nontender. No organomegaly. Bowel sounds are audible. Extremity exam; no peripheral edema clubbing. No tenderness. [employer] exam; no focal deficit. Assessment and recommendations; 1. Patient admitted with severe bilateral pneumonia status post extubation with development of left lower extremity DVT and extensive saddle pulmonary embolus. 2. Down syndrome. She is exhibiting excellent mental status. 3. History of hypothyroidism. 4. Mild RV strain on echocardiogram. Discontinue intravenous heparin drip. Switch to Lovenox subcutaneous dosing. Agree with transfer to skilled facility with continuation of Lovenox at least for the next 2 weeks with switching over to apixaban for a total of 6 months. I did have a detailed discussion with the patient's mother at bedside and answered all her questions. Exam/Review of Systems Exam Vitals Vital Signs Date Temp Pulse Resp B/P (MAP) Pulse Ox O2 O2 Flow FiO2 Time Delivery Rate 03/14/19 97.4 78 18 99/55 (70) 98 Nasal 11:22 Cannula 03/14/19 3.0 08:45 03/14/19 35 05:25 Intake and Output 03/13/19 03/13/19 03/14/19 1515:00 23:00 07:00 IntakeIntake Total 550 ml 750 ml 694 ml BalanceBalance 550 ml 750 ml 694 ml Results Result Diagram: 03/14/19 0600 03/13/19 0614 Results 24hrs Laboratory Tests Test 03/13/19 14:24 03/13/19 17:28 03/13/19 19:16 03/13/19 21:05 Activated 88.5 *H 83.4 *H Partial Thromboplast Time Bedside Glucose 103 101 Test 03/14/19 06:00 03/14/19 06:01 03/14/19 08:12 White Blood Count 5.0 Red Blood Count 4.50 Hemoglobin 12.6 Hematocrit 40.8 Mean Corpuscular Volume 90.7 Mean Corpuscular 28.0 L Hemoglobin Mean Corpuscular 30.9 L Hemoglobin Concent Red Cell Distribution 20.5 H Width Platelet Count 190 Mean Platelet Volume 10.0 Immature Granulocytes % 6.900 H Neutrophils % Segmented Neutrophils 51 % (Manual) Band Neutrophils % 4 (Manual) Lymphocytes % Lymphocytes % (Manual) 25 Reactive Lymphocytes 5 H % (Manual) Monocytes % Monocytes % (Manual) 6 Eosinophils % Eosinophils % (Manual) 4 Basophils % Myelocytes % (Manual) 5 H Nucleated Red Blood 1 H Cells % Immature Granulocytes # 0.350 H Neutrophils # Neutrophils # (Manual) 2.6 Band Neutrophils # 0.2 Lymphocytes (Manual) 1.2 Lymphocytes # Reactive Lymphocytes # 0.2 H Monocytes # Monocytes # (Manual) 0.3 Eosinophils # Basophils # Myelocytes # 0.2 H Nucleated Red Blood Cells # Platelet Estimate NORMAL Giant Platelets 1 H Polychromasia 2+ Anisocytosis 1+ Microcytosis 1+ Spherocytes 1+ Ovalocytes 1+ Activated 91.3 *H Partial Thromboplast Time Bedside Glucose 101 Medications Medication Current Medications IV Flush (NS 3 ml) 3 ml PER PROTOCOL IV ; Start 02/12/19 at 15:30 Ondansetron HCl (Zofran Inj) 4 mg Q6H PRN IV NAUSEA/VOMITING; Start 02/12/19 at 15:30 Acetaminophen (Tylenol Tab) 650 mg Q6H PRN PO .PAIN 1-3 OR TEMP Last administered on 03/04/19at 18:11; Admin Dose 650 MG; Start 02/12/19 at 15:30 Levothyroxine Sodium (Synthroid) 88 mcg BEFORE BREAKFAST PO Last administered on 03/14/19at 05:58; Admin Dose 88 MCG; Start 02/15/19 at 07:00 Miscellaneous Information 1 ea NOTE XX ; Start 02/14/19 at 10:30 Glucose (Glutose) 15 gm Q15M PRN PO DECREASED GLUCOSE; Start 02/14/19 at 10:30 Glucose (Glutose) 22.5 gm Q15M PRN PO DECREASED GLUCOSE; Start 02/14/19 at 10:30 Dextrose (D50w Syringe) 25 ml Q15M PRN IV DECREASED GLUCOSE; Start 02/14/19 at 10:30 Dextrose (D50w Syringe) 50 ml Q15M PRN IV DECREASED GLUCOSE; Start 02/14/19 at 10:30 Glucagon (Glucagen) 1 mg Q15M PRN IM DECREASED GLUCOSE; Start 02/14/19 at 10:30 Glucose (Glutose) 15 gm Q15M PRN BUCCAL DECREASED GLUCOSE; Start 02/14/19 at 1 0:30 Bisacodyl (Dulcolax Supp) 10 mg DAILY PRN [place] CONSTIPATION Last administered on 02/21/19at 14:06; Admin Dose 10 MG; Start 02/15/19 at 11:00 IV Flush (NS 10 ml) 10 ml PRN PRN IV IV PROTOCOL; Start 02/18/19 at 15:30 Albuterol/ Ipratropium (Duoneb) 3 ml Q6H RESP THERAPY HHN Last administered on 03/14/19at 08:50; Admin Dose 3 ML; Start 03/01/19 at 14:00 Insulin Aspart (Novolog Insulin Pen) NOVOLOG *MILD* ALGORITHM WITH MEALS BEDTIME SC Last administered on 03/09/19at 17:27; Admin Dose 2 UNIT; Start 03/03/19 at 21:00 Meclizine HCl (Antivert) 12.5 mg BID PRN PO vertigo/dizziness; Start 03/05/19 at 15:30 Metoprolol Tartrate (Lopressor) 12.5 mg BID PO Last administered on 03/14/19at 08:21; Admin Dose 12.5 MG; Start 03/07/19 at 14:00 Famotidine (Pepcid) 20 mg Q12 PO Last administered on 03/14/19at 08:20; Admin Dose 20 MG; Start 03/08/19 at 21:00 Aspirin (Halfprin) 81 mg DAILY PO Last administered on 03/14/19at 08:20; Admin Dose 81 MG; Start 03/10/19 at 12:00 Heparin Sodium (Porcine) 250 ml @ 18 mls/hr PER PROTOCOL IV Last administered on 03/13/19 07:39; Admin Dose 17 MLS/HR; Start 03/10/19 at 20:00 Heparin Sodium (Porcine) (Heparin (1000 Units/ml)) 3,700 unit PER PROTOCOL PRN IV aPTT<47-57 Last administered on 03/13/19at 07:39; Admin Dose 3,700 UNIT; Start 03/10/19 at 22:00 Heparin Sodium (Porcine) (Heparin (1000 Units/ml)) 7,400 unit PER PROTOCOL PRN IV aPTT<47 Last administered on 03/11/19at 17:44; Admin Dose 7,400 UNIT; Start 03/10/19 at 21:52 WILLA MARQUEZ Mar 14, 2019 11:49
[2019-03-14] MEDS: ENOXAPARIN 100 MG/ML SYG SC SCH ×2 (13:24→20:46)
--- NOTE | 2019-03-14 14:06 | CONS ---
Assessment/Plan Assessment/Plan Hospital Course (Demo Recall) IMPRESSION: 1. Congestive heart failure-diastolic acute on chronic 2. Lower extremity edema, assess for congestive heart failure.-preserved EF 3. Tachycardia, improved, status post intubation, likely due to respiratory distress. 4. Abnormal electrocardiogram with right axis deviation and T-wave flattening. -neg trop x 3 5. Down syndrome. 6. Hypothyroidism. 7. Diabetes mellitus. 8. Obstructive sleep apnea. 9. hypotension-improved overall and stable 10. Resp distress-recurrent with now transfer to ICU 11.encephalopathy 12. Fevers 14. positive troponin-minimal in the setting of resp distress and now trended negative 15. Pulmonary embolus-saddle embolus, Echo 03/12 with some RV hypokinesis and pressure/volume overload but patient HD stable at this time without resp distress Recc: -Now transferred back to [facility] -s/p course of abx, f/u cx data -continue low dose BB as tolerated only -continue asa -Continue bronchodilators -Continue IV heparin -pulmonary following. HD stable at this time with no definite indication for thrombolytics at this time but situation guarded Consultation Date/Type/Reason Admit Date/Time Feb 12, 2019 at 12:24 Initial Consult Date 02/12/19 Type of Consult Cardiology Reason for Consultation chest pain Requesting Provider: LORNA LYONS MD Date/Time of Note DATE: 03/14/19 TIME: 14:03 Exam/Review of Systems Vital Signs Vitals Vital Signs Date Temp Pulse Resp B/P (MAP) Pulse Ox O2 O2 Flow FiO2 Time Delivery Rate 03/14/19 92 20 98 Nasal 3.0 13:24 Cannula 03/14/19 97.4 99/55 (70) 11:22 03/14/19 35 05:25 Intake and Output 03/13/19 03/13/19 03/14/19 1515:00 23:00 07:00 IntakeIntake Total 550 ml 750 ml 694 ml BalanceBalance 550 ml 750 ml 694 ml Exam Exam Review of Systems: CONSTITUTIONAL: No fevers, chills. PULMONARY: No sob CARDIOVASCULAR: No chest pain/palpitations GASTROINTESTINAL: No nausea/vomiting. GENITOURINARY: No hematuria/dysuria. MUSCULOSKELETAL: No myagias/arthalgias. PSYCHIATRIC: The patient denies depression. NEUROLOGIC: No weakness Constitutional: alert Psych: no complaints Head: normocephalic ENMT: mucosa pink and moist Neck: supple, jvd (9 cm water) Respiratory: diminished breath sounds Cardiovascular: regular rate and rhythm Gastrointestinal: soft, non-tender Musculoskeletal: muscle tone (normal) Extremities: edema (none) Labs Result Diagram: 03/14/19 0600 03/13/19 0614 Results 24hrs Laboratory Tests Test 03/13/19 14:24 03/13/19 17:28 03/13/19 19:16 03/13/19 21:05 Activated 88.5 *H 83.4 *H Partial Thromboplast Time Bedside Glucose 103 101 Test 03/14/19 06:00 03/14/19 06:01 03/14/19 08:12 03/14/19 11:50 White Blood Count 5.0 Red Blood Count 4.50 Hemoglobin 12.6 Hematocrit 40.8 Mean Corpuscular Volume 90.7 Mean Corpuscular 28.0 L Hemoglobin Mean Corpuscular 30.9 L Hemoglobin Concent Red Cell Distribution 20.5 H Width Platelet Count 190 Mean Platelet Volume 10.0 Immature Granulocytes % 6.900 H Neutrophils % Segmented Neutrophils 51 % (Manual) Band Neutrophils % 4 (Manual) Lymphocytes % Lymphocytes % (Manual) 25 Reactive Lymphocytes 5 H % (Manual) Monocytes % Monocytes % (Manual) 6 Eosinophils % Eosinophils % (Manual) 4 Basophils % Myelocytes % (Manual) 5 H Nucleated Red Blood 1 H Cells % Immature Granulocytes # 0.350 H Neutrophils # Neutrophils # (Manual) 2.6 Band Neutrophils # 0.2 Lymphocytes (Manual) 1.2 Lymphocytes # Reactive Lymphocytes # 0.2 H Monocytes # Monocytes # (Manual) 0.3 Eosinophils # Basophils # Myelocytes # 0.2 H Nucleated Red Blood Cells # Platelet Estimate NORMAL Giant Platelets 1 H Polychromasia 2+ Anisocytosis 1+ Microcytosis 1+ Spherocytes 1+ Ovalocytes 1+ Activated 91.3 *H Partial Thromboplast Time Bedside Glucose 101 101 Medications Medications Current Medications IV Flush (NS 3 ml) 3 ml PER PROTOCOL IV ; Start 02/12/19 at 15:30 Ondansetron HCl (Zofran Inj) 4 mg Q6H PRN IV NAUSEA/VOMITING; Start 02/12/19 at 15:30 Acetaminophen (Tylenol Tab) 650 mg Q6H PRN PO .PAIN 1-3 OR TEMP Last administered on 03/04/19at 18:11; Admin Dose 650 MG; Start 02/12/19 at 15:30 Levothyroxine Sodium (Synthroid) 88 mcg BEFORE BREAKFAST PO Last administered on 03/14/19at 05:58; Admin Dose 88 MCG; Start 02/15/19 at 07:00 Miscellaneous Information 1 ea NOTE XX ; Start 02/14/19 at 10:30 Glucose (Glutose) 15 gm Q15M PRN PO DECREASED GLUCOSE; Start 02/14/19 at 10:30 Glucose (Glutose) 22.5 gm Q15M PRN PO DECREASED GLUCOSE; Start 02/14/19 at 10:30 Dextrose (D50w Syringe) 25 ml Q15M PRN IV DECREASED GLUCOSE; Start 02/14/19 at 10:30 Dextrose (D50w Syringe) 50 ml Q15M PRN IV DECREASED GLUCOSE; Start 02/14/19 at 10:30 Glucagon (Glucagen) 1 mg Q15M PRN IM DECREASED GLUCOSE; Start 02/14/19 at 10:30 Glucose (Glutose) 15 gm Q15M PRN BUCCAL DECREASED GLUCOSE; Start 02/14/19 at 10:30 Bisacodyl (Dulcolax Supp) 10 mg DAILY PRN [place] CONSTIPATION Last administered on 02/21/19at 14:06; Admin Dose 10 MG; Start 02/15/19 at 11:00 IV Flush (NS 10 ml) 10 ml PRN PRN IV IV PROTOCOL; Start 02/18/19 at 15:30 Albuterol/ Ipratropium (Duoneb) 3 ml Q6H RESP THERAPY HHN Last administered on 03/14/19at 13:24; Admin Dose 3 ML; Start 03/01/19 at 14:00 Insulin Aspart (Novolog Insulin Pen) NOVOLOG *MILD* ALGORITHM WITH MEALS BEDTIME SC Last administered on 03/09/19at 17:27; Admin Dose 2 UNIT; Start 03/03/19 at 21:00 Meclizine HCl (Antivert) 12.5 mg BID PRN PO vertigo/dizziness; Start 03/05/19 at 15:30 Metoprolol Tartrate (Lopressor) 12.5 mg BID PO Last administered on 03/14/19 08:21; Admin Dose 12.5 MG; Start 03/07/19 at 14:00 Famotidine (Pepcid) 20 mg Q12 PO Last administered on 03/14/19at 08:20; Admin Dose 20 MG; Start 03/08/19 at 21:00 Aspirin (Halfprin) 81 mg DAILY PO Last administered on 03/14/19at 08:20; Admin Dose 81 MG; Start 03/10/19 at 12:00 Enoxaparin Sodium (Lovenox) 95 mg Q12 SC Last administered on 03/14/19at 13:24; Admin Dose 95 MG; Start 03/14/19 at 12:00 SHARIF TORRES Mar 14, 2019 14:06
--- NOTE | 2019-03-14 15:52 | CONS ---
Assessment/Plan Assessment/Plan Hospital Course (Demo Recall) SUBJECTIVE: Alert, looks comfortable, no fevers, no SOB ANTIMICROBIALS: She is off antibiotics. PHYSICAL EXAMINATION: GENERAL: This is a morbidly obese, well-developed, middle-aged woman who is in no distress. HEENT: Head atraumatic, normocephalic. NECK: Supple. CHEST: Rise symmetrical. Breath sounds diminished to bases. HEART: S1, S2. ABDOMEN: Soft, bowel sounds present. ASSESSMENT: 1. Status post respiratory failure . 2. Pulmonary embolism. 3. Status post pneumonia and congestive heart failure exacerbation. 4. Diabetes. 5. Down syndrome. PLAN: The patient remains stable. Continue present care. Observe off antibiotics. Consultation Date/Type/Reason Admit Date/Time Feb 12, 2019 at 12:24 Initial Consult Date Type of Consult id Requesting Provider: LORNA LYONS MD Date/Time of Note DATE: 03/14/19 TIME: 15:51 Exam/Review of Systems Exam Vitals Vital Signs Date Temp Pulse Resp B/P (MAP) Pulse Ox O2 O2 Flow FiO2 Time Delivery Rate 03/14/19 98.4 81 18 103/48 96 Nasal 15:37 (66) Cannula 03/14/19 3.0 13:24 03/14/19 35 05:25 Intake and Output 03/13/19 03/13/19 03/14/19 1515:00 23:00 07:00 IntakeIntake Total 550 ml 750 ml 694 ml BalanceBalance 550 ml 750 ml 694 ml Results Result Diagram: 03/14/19 0600 03/13/19 0614 Results 24hrs Laboratory Tests Test 03/13/19 17:28 03/13/19 19:16 03/13/19 21:05 03/14/19 06:00 Bedside Glucose 103 101 Activated 83.4 *H Partial Thromboplast Time White Blood Count 5.0 Red Blood Count 4.50 Hemoglobin 12.6 Hematocrit 40.8 Mean Corpuscular Volume 90.7 Mean Corpuscular 28.0 L Hemoglobin Mean Corpuscular 30.9 L Hemoglobin Concent Red Cell Distribution 20.5 H Width Platelet Count 190 Mean Platelet Volume 10.0 Immature Granulocytes % 6.900 H Neutrophils % Segmented Neutrophils 51 % (Manual) Band Neutrophils % 4 (Manual) Lymphocytes % Lymphocytes % (Manual) 25 Reactive Lymphocytes 5 H % (Manual) Monocytes % Monocytes % (Manual) 6 Eosinophils % Eosinophils % (Manual) 4 Basophils % Myelocytes % (Manual) 5 H Nucleated Red Blood 1 H Cells % Immature Granulocytes # 0.350 H Neutrophils # Neutrophils # (Manual) 2.6 Band Neutrophils # 0.2 Lymphocytes (Manual) 1.2 Lymphocytes # Reactive Lymphocytes # 0.2 H Monocytes # Monocytes # (Manual) 0.3 Eosinophils # Basophils # Myelocytes # 0.2 H Nucleated Red Blood Cells # Platelet Estimate NORMAL Giant Platelets 1 H Polychromasia 2+ Anisocytosis 1+ Microcytosis 1+ Spherocytes 1+ Ovalocytes 1+ Test 03/14/19 06:01 03/14/19 08:12 03/14/19 11:50 Activated 91.3 *H Partial Thromboplast Time Bedside Glucose 101 101 Medications Medication Current Medications IV Flush (NS 3 ml) 3 ml PER PROTOCOL IV ; Start 02/12/19 at 15:30 Ondansetron HCl (Zofran Inj) 4 mg Q6H PRN IV NAUSEA/VOMITING; Start 02/12/19 at 15:30 Acetaminophen (Tylenol Tab) 650 mg Q6H PRN PO .PAIN 1-3 OR TEMP Last ad ministered on 03/04/19at 18:11; Admin Dose 650 MG; Start 02/12/19 at 15:30 Levothyroxine Sodium (Synthroid) 88 mcg BEFORE BREAKFAST PO Last administered on 03/14/19at 05:58; Admin Dose 88 MCG; Start 02/15/19 at 07:00 Miscellaneous Information 1 ea NOTE XX ; Start 02/14/19 at 10:30 Glucose (Glutose) 15 gm Q15M PRN PO DECREASED GLUCOSE; Start 02/14/19 at 10:30 Glucose (Glutose) 22.5 gm Q15M PRN PO DECREASED GLUCOSE; Start 02/14/19 at 10:30 Dextrose (D50w Syringe) 25 ml Q15M PRN IV DECREASED GLUCOSE; Start 02/14/19 at 10:30 Dextrose (D50w Syringe) 50 ml Q15M PRN IV DECREASED GLUCOSE; Start 02/14/19 at 10:30 Glucagon (Glucagen) 1 mg Q15M PRN IM DECREASED GLUCOSE; Start 02/14/19 at 10:30 Glucose (Glutose) 15 gm Q15M PRN BUCCAL DECREASED GLUCOSE; Start 02/14/19 at 10:30 Bisacodyl (Dulcolax Supp) 10 mg DAILY PRN [place] CONSTIPATION Last administered on 02/21/19 14:06; Admin Dose 10 MG; Start 02/15/19 at 11:00 IV Flush (NS 10 ml) 10 ml PRN PRN IV IV PROTOCOL; Start 02/18/19 at 15:30 Albuterol/ Ipratropium (Duoneb) 3 ml Q6H RESP THERAPY HHN Last administered on 03/14/19 13:24; Admin Dose 3 ML; Start 03/01/19 at 14:00 Insulin Aspart (Novolog Insulin Pen) NOVOLOG *MILD* ALGORITHM WITH MEALS BEDTI ME SC Last administered on 03/09/19 17:27; Admin Dose 2 UNIT; Start 03/03/19 at 21:00 Meclizine HCl (Antivert) 12.5 mg BID PRN PO vertigo/dizziness; Start 03/05/19 at 15:30 Metoprolol Tartrate (Lopressor) 12.5 mg BID PO Last administered on 03/14/19 08:21; Admin Dose 12.5 MG; Start 03/07/19 at 14:00 Famotidine (Pepcid) 20 mg Q12 PO Last administered on 03/14/19 08:20; Admin Dose 20 MG; Start 03/08/19 at 21:00 Aspirin (Halfprin) 81 mg DAILY PO Last administered on 03/14/19 08:20; Admin Dose 81 MG; Start 03/10/19 at 12:00 Enoxaparin Sodium (Lovenox) 95 mg Q12 SC Last administered on 03/14/19 13:24; Admin Dose 95 MG; Start 03/14/19 at 12:00 RUDOLPH PANIAGUA NP Mar 14, 2019 15:52
--- NOTE | 2019-03-14 16:34 | PN ---
Date/Time of Note Date/Time of Note DATE: 03/14/19 TIME: 16:31 Assessment/Plan VTE Prophylaxis Risk score (from Ns)>0 risk: 4 SCD applied (from Ns): No SCD contraindicated: other Pharmacological prophylaxis: LMWH Lines/Catheters IV Catheter Type (from Nrs): PICC Line Central line still needed: Yes Urinary Cath still in place: No Assessment/Plan Hospital Course # large saddle pulmonary embolus straddling both main pulmonary arteries with large amount of clot burden extending into both lower lobe pulmonary arteries. A small amount of nonocclusive clot is also noted in the right upper lobe pulmonary artery. There is evidence of right heart strain with enlargement of the right ventricle # Wedge-shaped area of consolidation in the right lower lobe may represent an area of pulmonary infarct with rt sided chest pain/abdominal pain # Positive troponin with an episode of chest pain and shortness of breath, EKG showed sinus tachycardia, ABG showed marked hypoxia even though the chest x-ray is not showing much disease . She has been nonambulatory # Severe altered mental status likely secondary to metabolic encephalopathy, likely secondary to CO2 narcosis. pt is alert, oriented 2 #. Hypoxic respiratory failure,still on supplemental oxygen #. Respiratory alkalosis, no ABG today #. Morbid obesity. # Down syndrome. #. Hypertension, now normotensive. #. Diabetes mellitus type II blood sugar controlled. # History of ventral hernia repair. #. Leukocytosis secondary to pneumonia, resolved #. Hypothyroidism 11. 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 - asa/MTP Result Diagram: 03/14/19 0600 03/13/19 0614 Results 24hrs Laboratory Tests Test 03/13/19 17:28 03/13/19 19:16 03/13/19 21:05 03/14/19 06:00 Bedside Glucose 103 101 Activated 83.4 *H Partial Thromboplast Time White Blood Count 5.0 Red Blood Count 4.50 Hemoglobin 12.6 Hematocrit 40.8 Mean Corpuscular Volume 90.7 Mean Corpuscular 28.0 L Hemoglobin Mean Corpuscular 30.9 L Hemoglobin Concent Red Cell Distribution 20.5 H Width Platelet Count 190 Mean Platelet Volume 10.0 Immature Granulocytes % 6.900 H Neutrophils % Segmented Neutrophils 51 % (Manual) Band Neutrophils % 4 (Manual) Lymphocytes % Lymphocytes % (Manual) 25 Reactive Lymphocytes 5 H % (Manual) Monocytes % Monocytes % (Manual) 6 Eosinophils % Eosinophils % (Manual) 4 Basophils % Myelocytes % (Manual) 5 H Nucleated Red Blood 1 H Cells % Immature Granulocytes # 0.350 H Neutrophils # Neutrophils # (Manual) 2.6 Band Neutrophils # 0.2 Lymphocytes (Manual) 1.2 Lymphocytes # Reactive Lymphocytes # 0.2 H Monocytes # Monocytes # (Manual) 0.3 Eosinophils # Basophils # Myelocytes # 0.2 H Nucleated Red Blood Cells # Platelet Estimate NORMAL Giant Platelets 1 H Polychromasia 2+ Anisocytosis 1+ Microcytosis 1+ Spherocytes 1+ Ovalocytes 1+ Test 03/14/19 06:01 03/14/19 08:12 03/14/19 11:50 Activated 91.3 *H Partial Thromboplast Time Bedside Glucose 101 101 Subjective 24 Hr Interval Summary Free Text/Dictation feeling ok Constitutional: no complaints Exam/Review of Systems Exam Vitals Vital Signs Date Temp Pulse Resp B/P (MAP) Pulse Ox O2 O2 Flow FiO2 Time Delivery Rate 03/14/19 98.4 81 18 103/48 96 Nasal 15:37 (66) Cannula 03/14/19 3.0 13:24 03/14/19 35 05:25 Intake and Output 03/13/19 03/13/19 03/14/19 1515:00 23:00 07:00 IntakeIntake Total 550 ml 750 ml 694 ml BalanceBalance 550 ml 750 ml 694 ml Exam obese in bed Constitutional: alert, oriented (x2) Head: normocephalic Eyes: nl lids, nl sclera, PERRL ENMT: nl external ears & nose, nl lips & teeth, mucosa pink and moist Neck: supple Respiratory: diminished breath sounds Cardiovascular: regular rate and rhythm Gastrointestinal: soft, other (obese) Genitourinary - Female: nl external genitalia Extremities: normal pulses Results Results 24hrs Laboratory Tests Test 03/13/19 17:28 03/13/19 19:16 03/13/19 21:05 03/14/19 06:00 Bedside Glucose 103 101 Activated 83.4 *H Partial Thromboplast Time White Blood Count 5.0 Red Blood Count 4.50 Hemoglobin 12.6 Hematocrit 40.8 Mean Corpuscular Volume 90.7 Mean Corpuscular 28.0 L Hemoglobin Mean Corpuscular 30.9 L Hemoglobin Concent Red Cell Distribution 20.5 H Width Platelet Count 190 Mean Platelet Volume 10.0 Immature Granulocytes % 6.900 H Neutrophils % Segmented Neutrophils 51 % (Manual) Band Neutrophils % 4 (Manual) Lymphocytes % Lymphocytes % (Manual) 25 Reactive Lymphocytes 5 H % (Manual) Monocytes % Monocytes % (Manual) 6 Eosinophils % Eosinophils % (Manual) 4 Basophils % Myelocytes % (Manual) 5 H Nucleated Red Blood 1 H Cells % Immature Granulocytes # 0.350 H Neutrophils # Neutrophils # (Manual) 2.6 Band Neutrophils # 0.2 Lymphocytes (Manual) 1.2 Lymphocytes # Reactive Lymphocytes # 0.2 H Monocytes # Monocytes # (Manual) 0.3 Eosinophils # Basophils # Myelocytes # 0.2 H Nucleated Red Blood Cells # Platelet Estimate NORMAL Giant Platelets 1 H Polychromasia 2+ Anisocytosis 1+ Microcytosis 1+ Spherocytes 1+ Ovalocytes 1+ Test 03/14/19 06:01 03/14/19 08:12 03/14/19 11:50 Activated 91.3 *H Partial Thromboplast Time Bedside Glucose 101 101 Medications Medication Current Medications IV Flush (NS 3 ml) 3 ml PER PROTOCOL IV ; Start 02/12/19 at 15:30 Ondansetron HCl (Zofran Inj) 4 mg Q6H PRN IV NAUSEA/VOMITING; Start 02/12/19 at 15:30 Acetaminophen (Tylenol Tab) 650 mg Q6H PRN PO .PAIN 1-3 OR TEMP Last administered on 03/04/19at 18:11; Admin Dose 650 MG; Start 02/12/19 at 15:30 Levothyroxine Sodium (Synthroid) 88 mcg BEFORE BREAKFAST PO Last administered on 03/14/19at 05:58; Admin Dose 88 MCG; Start 02/15/19 at 07:00 Miscellaneous Information 1 ea NOTE XX ; Start 02/14/19 at 10:30 Glucose (Glutose) 15 gm Q15M PRN PO DECREASED GLUCOSE; Start 02/14/19 at 10:30 Glucose (Glutose) 22.5 gm Q15M PRN PO DECREASED GLUCOSE; Start 02/14/19 at 10:30 Dextrose (D50w Syringe) 25 ml Q15M PRN IV DECREASED GLUCOSE; Start 02/14/19 at 10:30 Dextrose (D50w Syringe) 50 ml Q15M PRN IV DECREASED GLUCOSE; Start 02/14/19 at 10:30 Glucagon (Glucagen) 1 mg Q15M PRN IM DECREASED GLUCOSE; Start 02/14/19 at 10:30 Glucose (Glutose) 15 gm Q15M PRN BUCCAL DECREASED GLUCOSE; Start 02/14/19 at 10:30 Bisacodyl (Dulcolax Supp) 10 mg DAILY PRN [place] CONSTIPATION Last administered on 02/21/19at 14:06; Admin Dose 10 MG; Start 02/15/19 at 11:00 IV Flush (NS 10 ml) 10 ml PRN PRN IV IV PROTOCOL; Start 02/18/19 at 15:30 Albuterol/ Ipratropium (Duoneb) 3 ml Q6H RESP THERAPY HHN Last administered on 03/14/19 13:24; Admin Dose 3 ML; Start 03/01/19 at 14:00 Insulin Aspart (Novolog Insulin Pen) NOVOLOG *MILD* ALGORITHM WITH MEALS BED TIME SC Last administered on 03/09/19 17:27; Admin Dose 2 UNIT; Start 03/03/19 at 21:00 Meclizine HCl (Antivert) 12.5 mg BID PRN PO vertigo/dizziness; Start 03/05/19 at 15:30 Metoprolol Tartrate (Lopressor) 12.5 mg BID PO Last administered on 03/14/19 08:21; Admin Dose 12.5 MG; Start 03/07/19 at 14:00 Famotidine (Pepcid) 20 mg Q12 PO Last administered on 03/14/19 08:20; Admin Dose 20 MG; Start 03/08/19 at 21:00 Aspirin (Halfprin) 81 mg DAILY PO Last administered on 03/14/19 08:20; Admin Do se 81 MG; Start 03/10/19 at 12:00 Enoxaparin Sodium (Lovenox) 95 mg Q12 SC Last administered on 03/14/19 13:24; Admin Dose 95 MG; Start 03/14/19 at 12:00 CARY GIPSON NP Mar 14, 2019 16:34
[2019-03-15] VITALS (8 sets, daily range): BP systolic 106–116; BP diastolic 56–65; PULSE 68–103; RESP 18–23
[2019-03-15] MEDS: ALBUTEROL/IPRATROPIUM (NEB) 3 ML AMP HHN SCH ×4 (03:12→20:09)
[2019-03-15] MEDS: LEVOTHYROXINE 88 MCG TAB PO SCH (06:03)
[2019-03-15] MEDS: INSULIN ASPART [NOVOLOG] 3 ML PEN SC SCH ×4 (07:35→20:23)
[2019-03-15] MEDS: ASPIRIN (EC) 81 MG TAB PO SCH (08:22)
[2019-03-15] MEDS: METOPROLOL 25 MG TAB PO SCH ×2 (08:23→20:16)
[2019-03-15] MEDS: FAMOTIDINE 20 MG TAB PO SCH ×2 (08:23→20:14)
[2019-03-15] MEDS: ENOXAPARIN 100 MG/ML SYG SC SCH ×2 (08:33→20:22)
--- NOTE | 2019-03-15 10:46 | CONS ---
Consultation Date/Type/Reason Admit Date/Time Feb 12, 2019 at 12:24 Initial Consult Date Type of Consult Pulmonary/critical care Patient's condition remains critical. Still on fairly high FiO2. Patient however has remained hemodynamically stable. Patient does become agitated off sedation. General exam; young female, morbidly obese, orally intubated and sedated. Currently in no distress. Requesting Provider: LORNA LYONS MD Date/Time of Note DATE: 03/15/19 TIME: 10:42 24 HR Interval Summary Free Text/Dictation Patient's condition is a stable. Remains awake and alert. Denies any shortness of breath or chest pain. General exam; young woman, awake and alert. Currently no distress. H HEENT exam; supple neck, no JVD. No lymphadenopathy. Midline trachea. No neck masses. Chest exam; clear to auscultation. S1-S2 audible, no murmurs. Regular rhythm. No gallop or rub. Abdomen exam; soft, nontender. No organomegaly. Bowel sounds are audible. Extremity exam; no peripheral edema. left calf is warm. CHANGE LEAD exam; no focal deficit. Assessment and recommendations; 1. Patient with history of Down syndrome admitted for severe bilateral pneumonia status post extubation with development of left lower extremity DVT and saddle pulmonary embolus. Switched over to sub cutaneous Lovenox from IV heparin. Patient clinically doing very well. 2. History of diabetes and hypertension. Continue current supportive care. Continue Lovenox for the next couple of weeks with switching over to apixaban for total of 6 months. Patient awaiting discharge from [facility]. I did have a detailed discussion with the patient's mother at bedside again today and answered all her questions. Exam/Review of Systems Exam Vitals Vital Signs Date Temp Pulse Resp B/P (MAP) Pulse Ox O2 O2 Flow FiO2 Time Delivery Rate 03/15/19 3.0 08:06 03/15/19 92 20 95 Nasal 08:04 Cannula 03/15/19 97.8 116/64 07:48 (81) 03/15/19 35 03:12 Intake and Output 03/14/19 03/14/19 03/15/19 1515:00 23:00 07:00 IntakeIntake Total 800 ml 200 ml OutputOutput Total 300 ml 90 ml BalanceBalance 500 ml 110 ml Results Result Diagram: 03/15/19 0602 03/15/19 0602 Results 24hrs Laboratory Tests Test 03/14/19 11:50 03/14/19 17:50 03/14/19 20:28 03/15/19 06:02 Bedside Glucose 101 102 111 White Blood Count 4.6 L Red Blood Count 4.55 Hemoglobin 12.7 Hematocrit 41.9 Mean Corpuscular Volume 92.1 Mean Corpuscular 27.9 L Hemoglobin Mean Corpuscular 30.3 L Hemoglobin Concent Red Cell Distribution 20.7 H Width Platelet Count 198 Mean Platelet Volume 9.9 Immature Granulocytes % 9.300 H Neutrophils % Segmented Neutrophils 40 % (Manual) Band Neutrophils % 11 H (Manual) Lymphocytes % Lymphocytes % (Manual) 32 Monocytes % Monocytes % (Manual) 12 H Eosinophils % Basophils % Basophils % (Manual) 1 Metamyelocytes % 1 H (manual) Myelocytes % (Manual) 3 H Nucleated Red Blood 0.0 Cells % Immature Granulocytes # 0.430 H Neutrophils # Neutrophils # (Manual) 1.9 Band Neutrophils # 0.5 Lymphocytes (Manual) 1.4 Lymphocytes # Monocytes # Monocytes # (Manual) 0.5 Eosinophils # Basophils # Basophils # (Manual) 0.0 Metamyelocytes # 0.0 Myelocytes # 0.1 H Nucleated Red Blood Cells # Platelet Estimate NORMAL Giant Platelets 1 H Polychromasia 3+ Poikilocytosis 1+ Anisocytosis 1+ Microcytosis 1+ Activated 38.9 H Partial Thromboplast Time Sodium Level 139 Potassium Level 4.2 Chloride Level 102 Carbon Dioxide Level 30 Anion Gap 7 Blood Urea Nitrogen 14 Creatinine 0.64 Est Glomerular Filtrat > 60 Rate mL/min Glucose Level 99 Calcium Level 9.3 Test 03/15/19 07:34 Bedside Glucose 107 Medications Medication Current Medications IV Flush (NS 3 ml) 3 ml PER PROTOCOL IV ; Start 02/12/19 at 15:30 Ondansetron HCl (Zofran Inj) 4 mg Q6H PRN IV NAUSEA/VOMITING; Start 02/12/19 at 15:30 Acetaminophen (Tylenol Tab) 650 mg Q6H PRN PO .PAIN 1-3 OR TEMP Last administered on 03/04/19at 18:11; Admin Dose 650 MG; Start 02/12/19 at 15:30 Levothyroxine Sodium (Synthroid) 88 mcg BEFORE BREAKFAST PO Last administered on 03/15/19at 06:03; Admin Dose 88 MCG; Start 02/15/19 at 07:00 Miscellaneous Information 1 ea NOTE XX ; Start 02/14/19 at 10:30 Glucose (Glutose) 15 gm Q15M PRN PO DECREASED GLUCOSE; Start 02/14/19 at 10:30 Glucose (Glutose) 22.5 gm Q15M PRN PO DECREASED GLUCOSE; Start 02/14/19 at 10:30 Dextrose (D50w Syringe) 25 ml Q15M PRN IV DECREASED GLUCOSE; Start 02/14/19 at 10:30 Dextrose (D50w Syringe) 50 ml Q15M PRN IV DECREASED GLUCOSE; Start 02/14/19 at 10:30 Glucagon (Glucagen) 1 mg Q15M PRN IM DECREASED GLUCOSE; Start 02/14/19 at 10:30 Glucose (Glutose) 15 gm Q15M PRN BUCCAL DECREASED GLUCOSE; Start 02/14/19 at 10:30 Bisacodyl (Dulcolax Supp) 10 mg DAILY PRN [place] CONSTIPATION Last administered on 02/21/19at 14:06; Admin Dose 10 MG; Start 02/15/19 at 11:00 IV Flush (NS 10 ml) 10 ml PRN PRN IV IV PROTOCOL; Start 02/18/19 at 15:30 Albuterol/ Ipratropium (Duoneb) 3 ml Q6H RESP THERAPY HHN Last administered on 03/15/19at 08:02; Admin Dose 3 ML; Start 03/01/19 at 14:00 Insulin Aspart (Novolog Insulin Pen) NOVOLOG *MILD* ALGORITHM WITH MEALS BEDTIME SC Last administered on 03/09/19at 17:27; Admin Dose 2 UNIT; Start 03/03/19 at 21:00 Meclizine HCl (Antivert) 12.5 mg BID PRN PO vertigo/dizziness; Start 03/05/19 at 15:30 Metoprolol Tartrate (Lopressor) 12.5 mg BID PO Last administered on 03/15/19 08:23; Admin Dose 12.5 MG; Start 03/07/19 at 14:00 Famotidine (Pepcid) 20 mg Q12 PO Last administered on 03/15/19 08:23; Admin Dose 20 MG; Start 03/08/19 at 21:00 Aspirin (Halfprin) 81 mg DAILY PO Last administered on 8/3/19at 08:22; Admin Dose 81 MG; Start 03/10/19 at 12:00 Enoxaparin Sodium (Lovenox) 95 mg Q12 SC Last administered on 03/15/19at 08:33; Admin Dose 95 MG; Start 03/14/19 at 12:00 WILLA MARQUEZ Mar 15, 2019 10:45
--- NOTE | 2019-03-15 15:39 | CONS ---
Assessment/Plan Assessment/Plan Hospital Course (Demo Recall) Subjective She's c/o constant pain in her right chest and palpitations. Gen: Denies fever, chills CV: Denies SOB, ASKEW, orthopnea, PNA, edema, claudication Resp: Denies SOB or cough GI: Denies nausea, vomiting, diarrhea, constipation, abdominal pain Neuro: Denies lightheadedness, dizziness, presyncope/syncope Medications and allergies reviewed Past medical, surgical, family and social history reviewed. Objective General: WD/WN, NAD, obese HEENT: NC/AT, PERRLA, dry mucus membranes CV: RRR, grade 1/6 systolic murmur, S1/S2, no S3/S4, no JVD, no carotid bruits Respiratory: CTAB, no W/C/R, non-labored breathing GI: abdomen soft, NT/ND, normoactive bowel sounds Vascular: extremities are warm, 2+ radial/DT/PT pulses bilaterally, no edema Neuro: A/O x2, no focal deficits Assessment & Plan IMPRESSION: 1. Chest pain, right-side, likely due to PE, ACS ruled out - wedge-shaped area of consolidation in the right lower lobe may represent an area of pulmonary infarct with rt sided chest pain/abdominal pain 2. Large pulmonary embolus-saddle embolus, Echo 03/12 with some RV hypokinesis and pressure/volume overload but patient HD stable at this time without resp distress 3. Congestive heart failure-diastolic acute on chronic 4. Lower extremity edema, assess for congestive heart failure.-preserved EF 5. Tachycardia, improved, likely due to respiratory distress/PE 6. Abnormal electrocardiogram with right axis deviation and T-wave flattening. -neg trop x 3 7. Down syndrome. 8. Hypothyroidism. 9. Diabetes mellitus. 10. Obstructive sleep apnea. 11. Metabolic encephalopathy Recc: -continue low dose BB as tolerated -continue asa -Continue bronchodilators -Continue Lovenox -pulmonary following Consultation Date/Type/Reason Admit Date/Time Feb 12, 2019 at 12:24 Initial Consult Date Type of Consult Cardiology Requesting Provider: LORNA LYONS MD Date/Time of Note DATE: 03/15/19 TIME: 15:31 Exam/Review of Systems Vital Signs Vitals Vital Signs Date Temp Pulse Resp B/P (MAP) Pulse Ox O2 O2 Flow FiO2 Time Delivery Rate 03/15/19 98.4 98 22 113/63 92 Nasal 15:17 (80) Cannula 03/15/19 3.0 14:30 03/15/19 35 03:12 Intake and Output 03/14/19 03/14/19 03/15/19 1515:00 23:00 07:00 IntakeIntake Total 800 ml 200 ml OutputOutput Total 300 ml 90 ml BalanceBalance 500 ml 110 ml Labs Result Diagram: 03/15/19 0602 03/15/19 0602 Results 24hrs Laboratory Tests Test 03/14/19 17:50 03/14/19 20:28 03/15/19 06:02 03/15/19 07:34 Bedside Glucose 102 111 107 White Blood Count 4.6 L Red Blood Count 4.55 Hemoglobin 12.7 Hematocrit 41.9 Mean Corpuscular Volume 92.1 Mean Corpuscular 27.9 L Hemoglobin Mean Corpuscular 30.3 L Hemoglobin Concent Red Cell Distribution 20.7 H Width Platelet Count 198 Mean Platelet Volume 9.9 Immature Granulocytes % 9.300 H Neutrophils % Segmented Neutrophils 40 % (Manual) Band Neutrophils % 11 H (Manual) Lymphocytes % Lymphocytes % (Manual) 32 Monocytes % Monocytes % (Manual) 12 H Eosinophils % Basophils % Basophils % (Manual) 1 Metamyelocytes % 1 H (manual) Myelocytes % (Manual) 3 H Nucleated Red Blood 0.0 Cells % Immature Granulocytes # 0.430 H Neutrophils # Neutrophils # (Manual) 1.9 Band Neutrophils # 0.5 Lymphocytes (Manual) 1.4 Lymphocytes # Monocytes # Monocytes # (Manual) 0.5 Eosinophils # Basophils # Basophils # (Manual) 0.0 Metamyelocytes # 0.0 Myelocytes # 0.1 H Nucleated Red Blood Cells # Platelet Estimate NORMAL Giant Platelets 1 H Polychromasia 3+ Poikilocytosis 1+ Anisocytosis 1+ Microcytosis 1+ Activated 38.9 H Partial Thromboplast Time Sodium Level 139 Potassium Level 4.2 Chloride Level 102 Carbon Dioxide Level 30 Anion Gap 7 Blood Urea Nitrogen 14 Creatinine 0.64 Est Glomerular Filtrat > 60 Rate mL/min Glucose Level 99 Calcium Level 9.3 Test 03/15/19 11:32 Bedside Glucose 109 Medications Medications Current Medications IV Flush (NS 3 ml) 3 ml PER PROTOCOL IV ; Start 02/12/19 at 15:30 Ondansetron HCl (Zofran Inj) 4 mg Q6H PRN IV NAUSEA/VOMITING; Start 02/12/19 at 15:30 Acetaminophen (Tylenol Tab) 650 mg Q6H PRN PO .PAIN 1-3 OR TEMP Last admin istered on 03/04/19at 18:11; Admin Dose 650 MG; Start 02/12/19 at 15:30 Levothyroxine Sodium (Synthroid) 88 mcg BEFORE BREAKFAST PO Last administered on 03/15/19at 06:03; Admin Dose 88 MCG; Start 02/15/19 at 07:00 Miscellaneous Information 1 ea NOTE XX ; Start 02/14/19 at 10:30 Glucose (Glutose) 15 gm Q15M PRN PO DECREASED GLUCOSE; Start 02/14/19 at 10:30 Glucose (Glutose) 22.5 gm Q15M PRN PO DECREASED GLUCOSE; Start 02/14/19 at 10:30 Dextrose (D50w Syringe) 25 ml Q15M PRN IV DECREASED GLUCOSE; Start 02/14/19 at 10:30 Dextrose (D50w Syringe) 50 ml Q15M PRN IV DECREASED GLUCOSE; Start 02/14/19 at 1 0:30 Glucagon (Glucagen) 1 mg Q15M PRN IM DECREASED GLUCOSE; Start 02/14/19 at 10:30 Glucose (Glutose) 15 gm Q15M PRN BUCCAL DECREASED GLUCOSE; Start 02/14/19 at 10:30 Bisacodyl (Dulcolax Supp) 10 mg DAILY PRN [place] CONSTIPATION Last administered on 02/21/19at 14:06; Admin Dose 10 MG; Start 02/15/19 at 11:00 IV Flush (NS 10 ml) 10 ml PRN PRN IV IV PROTOCOL; Start 02/18/19 at 15:30 Albuterol/ Ipratropium (Duoneb) 3 ml Q6H RESP THERAPY HHN Last administered on 03/15/19at 14:45; Admin Dose 3 ML; Start 03/01/19 at 14:00 Insulin Aspart (Novolog Insulin Pen) NOVOLOG *MILD* ALGORITHM WITH MEALS BEDTIME SC Last administered on 03/09/19at 17:27; Admin Dose 2 UNIT; Start 03/03/19 at 21:00 Meclizine HCl (Antivert) 12.5 mg BID PRN PO vertigo/dizziness; Start 03/05/19 at 15:30 Metoprolol Tartrate (Lopressor) 12.5 mg BID PO Last administered on 03/15/19 08:23; Admin Dose 12.5 MG; Start 03/07/19 at 14:00 Famotidine (Pepcid) 20 mg Q12 PO Last administered on 03/15/19 08:23; Admin Dose 20 MG; Start 03/08/19 at 21:00 Aspirin (Halfprin) 81 mg DAILY PO Last administered on 03/15/19 08:22; Admin Dose 81 MG; Start 03/10/19 at 12:00 Enoxaparin Sodium (Lovenox) 95 mg Q12 SC Last administered on 03/15/19 08:33; Admin Dose 95 MG; Start 03/14/19 at 12:00 MARKO MORILLO DO Mar 15, 2019 15:39
--- NOTE | 2019-03-15 16:53 | PN ---
Date/Time of Note Date/Time of Note DATE: 03/15/19 TIME: 16:51 Assessment/Plan VTE Prophylaxis Risk score (from Ns)>0 risk: 7 SCD applied (from Ns): No SCD contraindicated: other Pharmacological prophylaxis: LMWH Lines/Catheters IV Catheter Type (from [facility]): PICC Line Central line still needed: Yes Urinary Cath still in place: No Assessment/Plan Hospital Course # large saddle pulmonary embolus straddling both main pulmonary arteries with large amount of clot burden extending into both lower lobe pulmonary arteries. A small amount of nonocclusive clot is also noted in the right upper lobe pulmonary artery. There is evidence of right heart strain with enlargement of the right ventricle # Wedge-shaped area of consolidation in the right lower lobe may represent an area of pulmonary infarct with rt sided chest pain/abdominal pain # Positive troponin with an episode of chest pain and shortness of breath, EKG showed sinus tachycardia, ABG showed marked hypoxia even though the chest x-ray is not showing much disease . She has been nonambulatory # Severe altered mental status likely secondary to metabolic encephalopathy, likely secondary to CO2 narcosis. pt is alert, oriented 2 #. Hypoxic respiratory failure,still on supplemental oxygen #. Respiratory alkalosis, no ABG today #. Morbid obesity. # Down syndrome. #. Hypertension, now normotensive. #. Diabetes mellitus type II blood sugar controlled. # History of ventral hernia repair. #. Leukocytosis secondary to pneumonia, resolved #. Hypothyroidism 11. 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 - asa/MTP Result Diagram: 03/15/19 0602 03/15/19 0602 Results 24hrs Laboratory Tests Test 03/14/19 17:50 03/14/19 20:28 03/15/19 06:02 03/15/19 07:34 Bedside Glucose 102 111 107 White Blood Count 4.6 L Red Blood Count 4.55 Hemoglobin 12.7 Hematocrit 41.9 Mean Corpuscular Volume 92.1 Mean Corpuscular 27.9 L Hemoglobin Mean Corpuscular 30.3 L Hemoglobin Concent Red Cell Distribution 20.7 H Width Platelet Count 198 Mean Platelet Volume 9.9 Immature Granulocytes % 9.300 H Neutrophils % Segmented Neutrophils 40 % (Manual) Band Neutrophils % 11 H (Manual) Lymphocytes % Lymphocytes % (Manual) 32 Monocytes % Monocytes % (Manual) 12 H Eosinophils % Basophils % Basophils % (Manual) 1 Metamyelocytes % 1 H (manual) Myelocytes % (Manual) 3 H Nucleated Red Blood 0.0 Cells % Immature Granulocytes # 0.430 H Neutrophils # Neutrophils # (Manual) 1.9 Band Neutrophils # 0.5 Lymphocytes (Manual) 1.4 Lymphocytes # Monocytes # Monocytes # (Manual) 0.5 Eosinophils # Basophils # Basophils # (Manual) 0.0 Metamyelocytes # 0.0 Myelocytes # 0.1 H Nucleated Red Blood Cells # Platelet Estimate NORMAL Giant Platelets 1 H Polychromasia 3+ Poikilocytosis 1+ Anisocytosis 1+ Microcytosis 1+ Activated 38.9 H Partial Thromboplast Time Sodium Level 139 Potassium Level 4.2 Chloride Level 102 Carbon Dioxide Level 30 Anion Gap 7 Blood Urea Nitrogen 14 Creatinine 0.64 Est Glomerular Filtrat > 60 Rate mL/min Glucose Level 99 Calcium Level 9.3 Test 03/15/19 11:32 Bedside Glucose 109 Subjective 24 Hr Interval Summary Free Text/Dictation does not talk much, says yes Exam/Review of Systems Exam Vitals Vital Signs Date Temp Pulse Resp B/P (MAP) Pulse Ox O2 O2 Flow FiO2 Time Delivery Rate 03/15/19 98.4 98 22 113/63 92 Nasal 15:17 (80) Cannula 03/15/19 3.0 14:30 03/15/19 35 03:12 Intake and Output 03/14/19 03/14/19 03/15/19 1515:00 23:00 07:00 IntakeIntake Total 800 ml 200 ml OutputOutput Total 300 ml 90 ml BalanceBalance 500 ml 110 ml Exam obese Constitutional: alert, oriented Head: normocephalic Eyes: nl conjunctiva Respiratory: diminished breath sounds Cardiovascular: regular rate and rhythm Gastrointestinal: soft Musculoskeletal: muscle weakness Results Results 24hrs Laboratory Tests Test 03/14/19 17:50 03/14/19 20:28 03/15/19 06:02 03/15/19 07:34 Bedside Glucose 102 111 107 White Blood Count 4.6 L Red Blood Count 4.55 Hemoglobin 12.7 Hematocrit 41.9 Mean Corpuscular Volume 92.1 Mean Corpuscular 27.9 L Hemoglobin Mean Corpuscular 30.3 L Hemoglobin Concent Red Cell Distribution 20.7 H Width Platelet Count 198 Mean Platelet Volume 9.9 Immature Granulocytes % 9.300 H Neutrophils % Segmented Neutrophils 40 % (Manual) Band Neutrophils % 11 H (Manual) Lymphocytes % Lymphocytes % (Manual) 32 Monocytes % Monocytes % (Manual) 12 H Eosinophils % Basophils % Basophils % (Manual) 1 Metamyelocytes % 1 H (manual) Myelocytes % (Manual) 3 H Nucleated Red Blood 0.0 Cells % Immature Granulocytes # 0.430 H Neutrophils # Neutrophils # (Manual) 1.9 Band Neutrophils # 0.5 Lymphocytes (Manual) 1.4 Lymphocytes # Monocytes # Monocytes # (Manual) 0.5 Eosinophils # Basophils # Basophils # (Manual) 0.0 Metamyelocytes # 0.0 Myelocytes # 0.1 H Nucleated Red Blood Cells # Platelet Estimate NORMAL Giant Platelets 1 H Polychromasia 3+ Poikilocytosis 1+ Anisocytosis 1+ Microcytosis 1+ Activated 38.9 H Partial Thromboplast Time Sodium Level 139 Potassium Level 4.2 Chloride Level 102 Carbon Dioxide Level 30 Anion Gap 7 Blood Urea Nitrogen 14 Creatinine 0.64 Est Glomerular Filtrat > 60 Rate mL/min Glucose Level 99 Calcium Level 9.3 Test 03/15/19 11:32 Bedside Glucose 109 Medications Medication Current Medications IV Flush (NS 3 ml) 3 ml PER PROTOCOL IV ; Start 02/12/19 at 15:30 Ondansetron HCl (Zofran Inj) 4 mg Q6H PRN IV NAUSEA/VOMITING; Start 02/12/19 at 15:30 Acetaminophen (Tylenol Tab) 650 mg Q6H PRN PO .PAIN 1-3 OR TEMP Last administered on 03/04/19at 18:11; Admin Dose 650 MG; Start 02/12/19 at 15:30 Levothyroxine Sodium (Synthroid) 88 mcg BEFORE BREAKFAST PO Last administered on 03/15/19at 06:03; Admin Dose 88 MCG; Start 02/15/19 at 07:00 Miscellaneous Information 1 ea NOTE XX ; Start 02/14/19 at 10:30 Glucose (Glutose) 15 gm Q15M PRN PO DECREASED GLUCOSE; Start 02/14/19 at 10:30 Glucose (Glutose) 22.5 gm Q15M PRN PO DECREASED GLUCOSE; Start 02/14/19 at 10:30 Dextrose (D50w Syringe) 25 ml Q15M PRN IV DECREASED GLUCOSE; Start 02/14/19 at 10:30 Dextrose (D50w Syringe) 50 ml Q15M PRN IV DECREASED GLUCOSE; Start 02/14/19 at 10:30 Glucagon (Glucagen) 1 mg Q15M PRN IM DECREASED GLUCOSE; Start 02/14/19 at 10:30 Glucose (Glutose) 15 gm Q15M PRN BUCCAL DECREASED GLUCOSE; Start 02/14/19 at 10:30 Bisacodyl (Dulcolax Supp) 10 mg DAILY PRN [place] CONSTIPATION Last administered on 02/21/19at 14:06; Admin Dose 10 MG; Start 02/15/19 at 11:00 IV Flush (NS 10 ml) 10 ml PRN PRN IV IV PROTOCOL; Start 02/18/19 at 15:30 Albuterol/ Ipratropium (Duoneb) 3 ml Q6H RESP THERAPY HHN Last administered on 03/15/19at 14:45; Admin Dose 3 ML; Start 03/01/19 at 14:00 Insulin Aspart (Novolog Insulin Pen) NOVOLOG *MILD* ALGORITHM WITH MEALS BE DTIME SC Last administered on 03/09/19 17:27; Admin Dose 2 UNIT; Start 03/03/19 at 21:00 Meclizine HCl (Antivert) 12.5 mg BID PRN PO vertigo/dizziness; Start 03/05/19 at 15:30 Metoprolol Tartrate (Lopressor) 12.5 mg BID PO Last administered on 03/15/19 08:23; Admin Dose 12.5 MG; Start 03/07/19 at 14:00 Famotidine (Pepcid) 20 mg Q12 PO Last administered on 03/15/19 08:23; Admin Dose 20 MG; Start 03/08/19 at 21:00 Aspirin (Halfprin) 81 mg DAILY PO Last administered on 03/15/19 08:22; Admin D ose 81 MG; Start 03/10/19 at 12:00 Enoxaparin Sodium (Lovenox) 95 mg Q12 SC Last administered on 03/15/19 08:33; Admin Dose 95 MG; Start 03/14/19 at 12:00 CARY GIPSON NP Mar 15, 2019 16:53
[2019-03-16] VITALS (9 sets, daily range): BP systolic 94–118; BP diastolic 51–62; PULSE 81–107; RESP 18–20
[2019-03-16] MEDS: ALBUTEROL/IPRATROPIUM (NEB) 3 ML AMP HHN SCH ×4 (02:08→19:29)
[2019-03-16] MEDS: LEVOTHYROXINE 88 MCG TAB PO SCH (06:12)
[2019-03-16] MEDS: INSULIN ASPART [NOVOLOG] 3 ML PEN SC SCH ×4 (07:14→21:00)
[2019-03-16] MEDS: ASPIRIN (EC) 81 MG TAB PO SCH (08:07)
[2019-03-16] MEDS: METOPROLOL 25 MG TAB PO SCH ×2 (08:07→20:43)
[2019-03-16] MEDS: FAMOTIDINE 20 MG TAB PO SCH ×2 (08:07→21:11)
[2019-03-16] MEDS: ENOXAPARIN 100 MG/ML SYG SC SCH ×2 (08:42→21:43)
--- NOTE | 2019-03-16 14:01 | CONS ---
Assessment/Plan Assessment/Plan Hospital Course (Demo Recall) Subjective She's c/o constant pain in her right chest and palpitations. Gen: Denies fever, chills CV: Denies SOB, ASKEW, orthopnea, PND, edema, claudication Resp: Denies SOB or cough GI: Denies nausea, vomiting, diarrhea, constipation, abdominal pain Neuro: Denies lightheadedness, dizziness, presyncope/syncope Medications and allergies reviewed Past medical, surgical, family and social history reviewed. Objective General: WD/WN, NAD, obese HEENT: NC/AT, PERRLA, dry mucus membranes CV: RRR, grade 1/6 systolic murmur, S1/S2, no S3/S4, no JVD, no carotid bruits Respiratory: CTAB, no W/C/R, non-labored breathing GI: abdomen soft, NT/ND, normoactive bowel sounds Vascular: extremities are warm, 2+ radial/DT/PT pulses bilaterally, no edema Neuro: A/O x2, no focal deficits Assessment & Plan IMPRESSION: 1. Chest pain, right-side, likely due to PE, ACS ruled out - wedge-shaped area of consolidation in the right lower lobe may represent an area of pulmonary infarct with rt sided chest pain/abdominal pain 2. Large pulmonary embolus-saddle embolus, Echo 03/12 with some RV hypokinesis and pressure/volume overload but patient HD stable at this time without resp distress 3. Congestive heart failure-diastolic acute on chronic 4. Lower extremity edema, assess for congestive heart failure.-preserved EF 5. Tachycardia, improved, likely due to respiratory distress/PE 6. Abnormal electrocardiogram with right axis deviation and T-wave flattening. -neg trop x 3 7. Down syndrome. 8. Hypothyroidism. 9. Diabetes mellitus. 10. Obstructive sleep apnea. 11. Metabolic encephalopathy Recc: -continue low dose BB as tolerated -continue asa -Continue bronchodilators -Continue Lovenox -pulmonary following Consultation Date/Type/Reason Admit Date/Time Feb 12, 2019 at 12:24 Initial Consult Date Type of Consult Cardiology Requesting Provider: LORNA LYONS MD Date/Time of Note DATE: 03/16/19 TIME: 13:59 Exam/Review of Systems Vital Signs Vitals Vital Signs Date Temp Pulse Resp B/P (MAP) Pulse Ox O2 O2 Flow FiO2 Time Delivery Rate 03/16/19 98.5 87 20 94/53 (67) 100 Nasal 11:30 Cannula 03/16/19 21 07:37 03/16/19 3.0 07:30 Intake and Output 03/15/19 03/15/19 03/16/19 1515:00 23:00 07:00 IntakeIntake Total 480 ml 240 ml 390 ml OutputOutput Total 300 ml BalanceBalance 480 ml 240 ml 90 ml Labs Result Diagram: 03/15/19 0602 03/15/19 0602 Results 24hrs Laboratory Tests Test 03/15/19 17:02 03/15/19 20:09 03/16/19 06:22 03/16/19 07:13 Bedside Glucose 113 101 106 Hemoglobin A1c 6.0 H Test 03/16/19 11:27 Bedside Glucose 94 Medications Medications Current Medications IV Flush (NS 3 ml) 3 ml PER PROTOCOL IV ; Start 02/12/19 at 15:30 Ondansetron HCl (Zofran Inj) 4 mg Q6H PRN IV NAUSEA/VOMITING; Start 02/12/19 at 15:30 Acetaminophen (Tylenol Tab) 650 mg Q6H PRN PO .PAIN 1-3 OR TEMP Last administered on 03/04/19at 18:11; Admin Dose 650 MG; Start 02/12/19 at 15:30 Levothyroxine Sodium (Synthroid) 88 mcg BEFORE BREAKFAST PO Last administered on 03/16/19at 06:12; Admin Dose 88 MCG; Start 02/15/19 at 07:00 Miscellaneous Information 1 ea NOTE XX ; Start 02/14/19 at 10:30 Glucose (Glutose) 15 gm Q15M PRN PO DECREASED GLUCOSE; Start 02/14/19 at 10:30 Glucose (Glutose) 22.5 gm Q15M PRN PO DECREASED GLUCOSE; Start 02/14/19 at 10:30 Dextrose (D50w Syringe) 25 ml Q15M PRN IV DECREASED GLUCOSE; Start 02/14/19 at 10:30 Dextrose (D50w Syringe) 50 ml Q15M PRN IV DECREASED GLUCOSE; Start 02/14/19 at 10:30 Glucagon (Glucagen) 1 mg Q15M PRN IM DECREASED GLUCOSE; Start 02/14/19 at 10:30 Glucose (Glutose) 15 gm Q15M PRN BUCCAL DECREASED GLUCOSE; Start 02/14/19 at 10:30 Bisacodyl (Dulcolax Supp) 10 mg DAILY PRN [place] CONSTIPATION Last administered on 02/21/19 14:06; Admin Dose 10 MG; Start 02/15/19 at 11:00 IV Flush (NS 10 ml) 10 ml PRN PRN IV IV PROTOCOL; Start 02/18/19 at 15:30 Albuterol/ Ipratropium (Duoneb) 3 ml Q6H RESP THERAPY HHN Last administered on 03/16/19 07:37; Admin Dose 3 ML; Start 03/01/19 at 14:00 Insulin Aspart (Novolog Insulin Pen) NOVOLOG *MILD* ALGORITHM WITH MEALS BEDTIME SC Last administered on 03/09/19 17:27; Admin Dose 2 UNIT; Start 03/03/19 at 21:00 Meclizine HCl (Antivert) 12.5 mg BID PRN PO vertigo/dizziness; Start 03/05/19 at 15:30 Metoprolol Tartrate (Lopressor) 12.5 mg BID PO Last administered on 03/15/19 20:16; Admin Dose 12.5 MG; Start 03/07/19 at 14:00 Famotidine (Pepcid) 20 mg Q12 PO Last administered on 03/16/19 08:07; Admin Dose 20 MG; Start 03/08/19 at 21:00 Aspirin (Halfprin) 81 mg DAILY PO Last administered on 03/16/19 08:07; Admin Dose 81 MG; Start 03/10/19 at 12:00 Enoxaparin Sodium (Lovenox) 95 mg Q12 SC Last administered on 03/16/19 08:42; Admin Dose 95 MG; Start 03/14/19 at 12:00 MARKO MORILLO DO Mar 16, 2019 14:01
--- NOTE | 2019-03-16 14:44 | PN ---
Date/Time of Note Date/Time of Note DATE: 03/16/19 TIME: 14:43 Assessment/Plan VTE Prophylaxis Risk score (from Nsg)>0 risk: 8 SCD applied (from Nsg): No SCD contraindicated: low risk/ambulating Pharmacological prophylaxis: LMWH Lines/Catheters IV Catheter Type (from Nrsg): PICC Line Central line still needed: Yes Urinary Cath still in place: No Assessment/Plan Hospital Course # large saddle pulmonary embolus straddling both main pulmonary arteries with large amount of clot burden extending into both lower lobe pulmonary arteries. A small amount of nonocclusive clot is also noted in the right upper lobe pulmonary artery. There is evidence of right heart strain with enlargement of the right ventricle # Wedge-shaped area of consolidation in the right lower lobe may represent an area of pulmonary infarct with rt sided chest pain/abdominal pain # Positive troponin with an episode of chest pain and shortness of breath, EKG showed sinus tachycardia, ABG showed marked hypoxia even though the chest x-ray is not showing much disease . She has been nonambulatory # Severe altered mental status likely secondary to metabolic encephalopathy, likely secondary to CO2 narcosis. pt is alert, oriented 2 #. Hypoxic respiratory failure,still on supplemental oxygen #. Respiratory alkalosis, no ABG today #. Morbid obesity. # Down syndrome. #. Hypertension, now normotensive. #. Diabetes mellitus type II blood sugar controlled. # History of ventral hernia repair. #. Leukocytosis secondary to pneumonia, resolved #. Hypothyroidism 11. KIRIT, more likely due to sepsis, resolved Assessment/Plan -c/w Lovenox BID -no overnight events, no fever -pt remained on oxygen nasal cannula Result Diagram: 03/15/19 0602 03/15/19 0602 Results 24hrs Laboratory Tests Test 03/15/19 17:02 03/15/19 20:09 03/16/19 06:22 03/16/19 07:13 Bedside Glucose 113 101 106 Hemoglobin A1c 6.0 H Test 03/16/19 11:27 Bedside Glucose 94 Subjective 24 Hr Interval Summary Free Text/Dictation pt is sleeping Exam/Review of Systems Exam Vitals Vital Signs Date Temp Pulse Resp B/P (MAP) Pulse Ox O2 O2 Flow FiO2 Time Delivery Rate 03/16/19 101 20 98 Nasal 3.0 14:04 Cannula 03/16/19 98.5 94/53 (67) 11:30 03/16/19 21 07:37 Intake and Output 03/15/19 03/15/19 03/16/19 1515:00 23:00 07:00 IntakeIntake Total 480 ml 240 ml 390 ml OutputOutput Total 300 ml BalanceBalance 480 ml 240 ml 90 ml Exam sleeping with chest rising Constitutional: obese Head: normocephalic, atraumatic Eyes: nl lids ENMT: nl external ears & nose, mucosa pink and moist Neck: supple Respiratory: diminished breath sounds Cardiovascular: regular rate and rhythm Gastrointestinal: soft, distended Results Results 24hrs Laboratory Tests Test 03/15/19 17:02 03/15/19 20:09 03/16/19 06:22 03/16/19 07:13 Bedside Glucose 113 101 106 Hemoglobin A1c 6.0 H Test 03/16/19 11:27 Bedside Glucose 94 Medications Medication Current Medications IV Flush (NS 3 ml) 3 ml PER PROTOCOL IV ; Start 02/12/19 at 15:30 Ondansetron HCl (Zofran Inj) 4 mg Q6H PRN IV NAUSEA/VOMITING; Start 02/12/19 at 15:30 Acetaminophen (Tylenol Tab) 650 mg Q6H PRN PO .PAIN 1-3 OR TEMP Last administered on 03/04/19at 18:11; Admin Dose 650 MG; Start 02/12/19 at 15:30 Levothyroxine Sodium (Synthroid) 88 mcg BEFORE BREAKFAST PO Last administered on 03/16/19at 06:12; Admin Dose 88 MCG; Start 02/15/19 at 07:00 Miscellaneous Information 1 ea NOTE XX ; Start 02/14/19 at 10:30 Glucose (Glutose) 15 gm Q15M PRN PO DECREASED GLUCOSE; Start 02/14/19 at 10:30 Glucose (Glutose) 22.5 gm Q15M PRN PO DECREASED GLUCOSE; Start 02/14/19 at 10:30 Dextrose (D50w Syringe) 25 ml Q15M PRN IV DECREASED GLUCOSE; Start 02/14/19 at 10:30 Dextrose (D50w Syringe) 50 ml Q15M PRN IV DECREASED GLUCOSE; Start 02/14/19 at 10:30 Glucagon (Glucagen) 1 mg Q15M PRN IM DECREASED GLUCOSE; Start 02/14/19 at 10:30 Glucose (Glutose) 15 gm Q15M PRN BUCCAL DECREASED GLUCOSE; Start 02/14/19 at 10:30 Bisacodyl (Dulcolax Supp) 10 mg DAILY PRN [place] CONSTIPATION Last administered on 02/21/19 14:06; Admin Dose 10 MG; Start 02/15/19 at 11:00 IV Flush (NS 10 ml) 10 ml PRN PRN IV IV PROTOCOL; Start 02/18/19 at 15:30 Albuterol/ Ipratropium (Duoneb) 3 ml Q6H RESP THERAPY HHN Last administered on 03/16/19 14:04; Admin Dose 3 ML; Start 03/01/19 at 14:00 Insulin Aspart (Novolog Insulin Pen) NOVOLOG *MILD* ALGORITHM WITH MEALS BEDTIME SC Last administered on 03/09/19 17:27; Admin Dose 2 UNIT; Start 03/03/19 at 21:00 Meclizine HCl (Antivert) 12.5 mg BID PRN PO vertigo/dizziness; Start 03/05/19 at 15:30 Metoprolol Tartrate (Lopressor) 12.5 mg BID PO Last administered on 03/15/19 20:16; Admin Dose 12.5 MG; Start 03/07/19 at 14:00 Famotidine (Pepcid) 20 mg Q12 PO Last administered on 03/16/19 08:07; Admin Dose 20 MG; Start 03/08/19 at 21:00 Aspirin (Halfprin) 81 mg DAILY PO Last administered on 03/16/19 08:07; Admin Dose 81 MG; Start 03/10/19 at 12:00 Enoxaparin Sodium (Lovenox) 95 mg Q12 SC Last administered on 03/16/19 08:42; Admin Dose 95 MG; Start 03/14/19 at 12:00 CARY GIPSON NP Mar 16, 2019 14:44
--- NOTE | 2019-03-16 15:44 | CONS ---
Consult Date/Type/Reason Admit Date/Time Feb 12, 2019 at 12:24 Initial Consult Date Type of Consultation: Pulm/CCM Requesting Provider: LORNA LYONS MD Date/Time of Note DATE: 03/16/19 TIME: 15:41 Subjective No events. Remains mildly tachypneic. Objective Vitals Vital Signs Date Temp Pulse Resp B/P (MAP) Pulse Ox O2 O2 Flow FiO2 Time Delivery Rate 03/16/19 98.5 90 20 103/55 92 Nasal 15:17 (71) Cannula 03/16/19 3.0 14:04 03/16/19 21 07:37 Intake and Output 03/15/19 03/15/19 03/16/19 1515:00 23:00 07:00 IntakeIntake Total 480 ml 240 ml 390 ml OutputOutput Total 300 ml BalanceBalance 480 ml 240 ml 90 ml Exam HEENT: Neck supple; +JVD; no LAD CVS: RRR, S1 and S2, 2/6 systolic murmur; loud P2 CHEST: Clear ABD: Soft, NT, + BS EXT: No c/c; + edema Results/Medications Result Diagram: 03/15/19 0602 03/15/1902 Results 24 hrs Laboratory Tests Test 03/15/19 17:02 03/15/19 20:09 03/16/19 06:22 03/16/19 07:13 Bedside Glucose 113 101 106 Hemoglobin A1c 6.0 H Test 03/16/19 11:27 Bedside Glucose 94 Home Meds Reported Medications Herrings Carbonate* (Herrings*) 300 Mg Cap, 600 MG PO QHS, CAP 02/12/19 Levothyroxine Sodium* (Levoxyl*) 88 Mcg Tablet, 88 MCG PO BEFORE BREAKFAST, #30 TAB 02/12/19 Loxapine Succinate (Loxapine) 10 Mg Capsule, 10 MG PO QHS, CAP 02/12/19 Cyanocobalamin* (Vitamin B12*) 100 Mcg Tab, 100 MCG PO DAILY, TAB 02/12/19 Loratadine* (Loratadine*) 10 Mg Tablet, 10 MG PO DAILY, #30 TAB 02/12/19 Metformin Hcl* (Metformin Hcl*) 500 Mg Tablet, 500 MG PO WITH BREAKFAST, #30 TAB 02/12/19 Propranolol Hcl* (Propranolol Hcl*) 10 Mg Tablet, 10 MG PO BID, TAB 02/12/19 Ergocalciferol (Vitamin D2) (VITAMIN D2) 50,000 Unit Capsule, 64071 UNIT PO EVERY SUNDAY, CAP 02/12/19 Medications Current Medications Levothyroxine Sodium (Synthroid) 88 mcg BEFORE BREAKFAST PO Last administered on 03/16/19at 06:12; Admin Dose 88 MCG; Start 02/15/19 at 07:00 Miscellaneous Information 1 ea NOTE XX ; Start 02/14/19 at 10:30 Glucose (Glutose) 15 gm Q15M PRN PO DECREASED GLUCOSE; Start 02/14/19 at 10:30 Glucose (Glutose) 22.5 gm Q15M PRN PO DECREASED GLUCOSE; Start 02/14/19 at 10:30 Dextrose (D50w Syringe) 25 ml Q15M PRN IV DECREASED GLUCOSE; Start 02/14/19 at 10:30 Dextrose (D50w Syringe) 50 ml Q15M PRN IV DECREASED GLUCOSE; Start 02/14/19 at 10:30 Glucagon (Glucagen) 1 mg Q15M PRN IM DECREASED GLUCOSE; Start 02/14/19 at 10:30 Glucose (Glutose) 15 gm Q15M PRN BUCCAL DECREASED GLUCOSE; Start 02/14/19 at 10:30 Bisacodyl (Dulcolax Supp) 10 mg DAILY PRN [place] CONSTIPATION Last administered on 02/21/19at 14:06; Admin Dose 10 MG; Start 02/15/19 at 11:00 IV Flush (NS 10 ml) 10 ml PRN PRN IV IV PROTOCOL; Start 02/18/19 at 15:30 Albuterol/ Ipratropium (Duoneb) 3 ml Q6H RESP THERAPY HHN Last administered on 03/16/19at 14:04; Admin Dose 3 ML; Start 03/01/19 at 14:00 Insulin Aspart (Novolog Insulin Pen) NOVOLOG *MILD* ALGORITHM WITH MEALS BEDTIME SC Last administered on 03/09/19at 17:27; Admin Dose 2 UNIT; Start 03/03/19 at 21:00 Meclizine HCl (Antivert) 12.5 mg BID PRN PO vertigo/dizziness; Start 03/05/19 at 15:30 Metoprolol Tartrate (Lopressor) 12.5 mg BID PO Last administered on 03/15/19at 20:16; Admin Dose 12.5 MG; Start 03/07/19 at 14:00 Famotidine (Pepcid) 20 mg Q12 PO Last administered on 03/16/19 08:07; Admin Dose 20 MG; Start 03/08/19 at 21:00 Aspirin (Halfprin) 81 mg DAILY PO Last administered on 03/16/19at 08:07; Admin Dose 81 MG; Start 03/10/19 at 12:00 Enoxaparin Sodium (Lovenox) 95 mg Q12 SC Last administered on 03/16/19at 08:42; Admin Dose 95 MG; Start 03/14/19 at 12:00 Assessment/Plan Assessment/Plan (Daily) IMP: 1. Submassive PE 2. Hypoxemic Respiratory Insufficiency 3. EILEEN 4. HTN 5. DM RECS: 1. Continue enoxaparin 2. PT/OT as tolerated 3. BDs prn 4. Am labs SIMRAN FALK MD Mar 16, 2019 15:44
[2019-03-17] VITALS (9 sets, daily range): BP systolic 104–116; BP diastolic 54–59; PULSE 78–104; RESP 18–20
[2019-03-17] MEDS: ALBUTEROL/IPRATROPIUM (NEB) 3 ML AMP HHN SCH ×4 (01:33→20:01)
[2019-03-17] MEDS: LEVOTHYROXINE 88 MCG TAB PO SCH (06:51)
[2019-03-17] MEDS: INSULIN ASPART [NOVOLOG] 3 ML PEN SC SCH ×4 (07:55→20:33)
[2019-03-17] MEDS: ENOXAPARIN 100 MG/ML SYG SC SCH ×2 (08:22→20:48)
[2019-03-17] MEDS: ASPIRIN (EC) 81 MG TAB PO SCH (08:23)
[2019-03-17] MEDS: FAMOTIDINE 20 MG TAB PO SCH ×2 (08:23→20:33)
[2019-03-17] MEDS: METOPROLOL 25 MG TAB PO SCH ×2 (08:23→20:32)
--- NOTE | 2019-03-17 10:54 | PN ---
Date/Time of Note Date/Time of Note DATE: 03/17/19 TIME: 10:51 Assessment/Plan VTE Prophylaxis Risk score (from Ns)>0 risk: 8 SCD applied (from Ns): No SCD contraindicated: low risk/ambulating Pharmacological prophylaxis: NA/contraindicated Pharm contraindication: low risk/ambulating Lines/Catheters IV C[facility]ter Type [facility]from [facility]): PICC Line Central line still needed: Yes Urinary Cath still in place: No Assessment/Plan Assessment/Plan Hospital Course # large saddle pulmonary embolus straddling both main pulmonary arteries with large amount of clot burden extending into both lower lobe pulmonary arteries. A small amount of nonocclusive clot is also noted in the right upper lobe pulmonary artery. There is evidence of right heart strain with enlargement of the right ventricle with extensive left leg DVT # Wedge-shaped area of consolidation in the right lower lobe may represent an area of pulmonary infarct with rt sided chest pain/abdominal pain # Positive troponin with an episode of chest pain and shortness of breath, EKG showed sinus tachycardia, ABG showed marked hypoxia even though the chest x-ray is not showing much disease . She has been nonambulatory # Severe altered mental status likely secondary to metabolic encephalopathy, likely secondary to CO2 narcosis. pt is alert, oriented 2 #. Hypoxic respiratory failure,still on supplemental oxygen #. Respiratory alkalosis, no ABG today #. Morbid obesity. # Down syndrome. #. Hypertension, now normotensive. #. Diabetes mellitus type II blood sugar controlled. # History of ventral hernia repair. #. Leukocytosis secondary to pneumonia, resolved #. Hypothyroidism 11. KIRIT, more likely due to sepsis, resolved Assessment/Plan -c/w Lovenox BID -Give CT of the head given the patient is on blood thinners complaining of head aches and some visual changes - PT/OT - nebs prn - cw MTP/ASa per cards CT of the head is negative then patient needs to go to SNF spoke to the patient case manager Result Diagram: 03/15/19 0602 03/15/19 0602 Results 24hrs Laboratory Tests Test 03/16/19 11:27 03/16/19 17:08 03/16/19 21:08 03/17/19 07:58 Bedside Glucose 94 116 110 109 Subjective 24 Hr Interval Summary Free Text/Dictation Slight headache. pain Behind both eyes per mom Exam/Review of Systems Exam Vitals Vital Signs Date Temp Pulse Resp B/P (MAP) Pulse Ox O2 O2 Flow FiO2 Time Delivery Rate 03/17/19 95 28 97 Nasal 3.0 09:19 Cannula 03/17/19 97.9 116/59 07:22 (78) 03/17/19 35 05:04 Intake and Output 03/16/19 03/16/19 03/17/19 1414:59 22:59 06:59 IntakeIntake Total 1200 ml 480 ml 100 ml OutputOutput Total 400 ml BalanceBalance 1200 ml 480 ml -300 ml Exam Constitutional: obese, mildly tachpnic Head: normocephalic, atraumatic Eyes: nl lids ENMT: nl external ears & nose, mucosa pink and moist Neck: supple Respiratory: diminished breath sounds Cardiovascular: regular rate and rhythm Gastrointestinal: soft, distended Results Results 24hrs Laboratory Tests Test 03/16/19 11:27 03/16/19 17:08 03/16/19 21:08 03/17/19 07:58 Bedside Glucose 94 116 110 109 Medications Medication Current Medications Levothyroxine Sodium (Synthroid) 88 mcg BEFORE BREAKFAST PO Last administered on 03/17/19at 06:51; Admin Dose 88 MCG; Start 02/15/19 at 07:00 Miscellaneous Information 1 ea NOTE XX ; Start 02/14/19 at 10:30 Glucose (Glutose) 15 gm Q15M PRN PO DECREASED GLUCOSE; Start 02/14/19 at 10:30 Glucose (Glutose) 22.5 gm Q15M PRN PO DECREASED GLUCOSE; Start 02/14/19 at 10:30 Dextrose (D50w Syringe) 25 ml Q15M PRN IV DECREASED GLUCOSE; Start 02/14/19 at 10:30 Dextrose (D50w Syringe) 50 ml Q15M PRN IV DECREASED GLUCOSE; Start 02/14/19 at 10:30 Glucagon (Glucagen) 1 mg Q15M PRN IM DECREASED GLUCOSE; Start 02/14/19 at 10:30 Glucose (Glutose) 15 gm Q15M PRN BUCCAL DECREASED GLUCOSE; Start 02/14/19 at 10:30 Bisacodyl (Dulcolax Supp) 10 mg DAILY PRN [place] CONSTIPATION Last administered on 02/21/19at 14:06; Admin Dose 10 MG; Start 02/15/19 at 11:00 IV Flush (NS 10 ml) 10 ml PRN PRN IV IV PROTOCOL; Start 02/18/19 at 15:30 Albuterol/ Ipratropium (Duoneb) 3 ml Q6H RESP THERAPY HHN Last administered on 03/17/19 08:45; Admin Dose 3 ML; Start 03/01/19 at 14:00 Insulin Aspart (Novolog Insulin Pen) NOVOLOG *MILD* ALGORITHM WITH MEALS BEDTIME SC Last administered on 03/09/19 17:27; Admin Dose 2 UNIT; Start 03/03/19 at 21:00 Meclizine HCl (Antivert) 12.5 mg BID PRN PO vertigo/dizziness; Start 03/05/19 at 15:30 Metoprolol Tartrate (Lopressor) 12.5 mg BID PO Last administered on 03/17/19 08:23; Admin Dose 12.5 MG; Start 03/07/19 at 14:00 Famotidine (Pepcid) 20 mg Q12 PO Last administered on 03/17/19 08:23; Admin Dose 20 MG; Start 03/08/19 at 21:00 Aspirin (Halfprin) 81 mg DAILY PO Last administered on 03/17/19 08:23; Admin Dose 81 MG; Start 03/10/19 at 12:00 Enoxaparin Sodium (Lovenox) 95 mg Q12 SC Last administered on 03/17/19 08:22; Admin Dose 95 MG; Start 03/14/19 at 12:00 LORNA LYONS MD Mar 17, 2019 10:54
--- NOTE | 2019-03-17 10:56 | PDOCDIS ---
Discharge Instructions DIAGNOSIS Discharge Diagnosis Respiratory failure status post extubation Large Pulmonary embolus left leg DVT CONDITION [id number] Patient Condition: Mymyb7y Fair HOME CARE INSTRUCTIONS: [id number] Diet Instructions: [id number] Modified Fat ACTIVITY: [id number] Activity Restrictions: [id number] Slowly Increase Activity Rest between Activity FOLLOW UP/APPOINTMENTS Follow-up Plan FU PCP in 1-2 weeks fu Pulmonary 1-2 weeks Patient will be need to switch from Lovenox to Eliquis in few weeks LORNA LYONS MD Mar 17, 2019 10:55
--- NOTE | 2019-03-17 11:56 | CONS ---
Consultation Date/Type/Reason Admit Date/Time Feb 12, 2019 at 12:24 Initial Consult Date Type of Consult Pulmonary/critical care Patient's condition remains critical. Still on fairly high FiO2. Patient however has remained hemodynamically stable. Patient does become agitated off sedation. General exam; young female, morbidly obese, orally intubated and sedated. Currently in no distress. Requesting Provider: LORNA LYONS MD Date/Time of Note DATE: 03/17/19 TIME: 11:54 24 HR Interval Summary Free Text/Dictation Patient's condition is stable. Remains awake and alert. Has remained hemodynamically stable. General exam; young female, awake, currently no distress. On 2 L nasal cannula. HEENT exam; supple neck, patient has Down's facies. No neck masses. No thyromegaly. Chest exam; clear to auscultation. S1-S2 audible, no murmurs. Regular rhythm. Abdomen exam; soft, protuberant. Nontender. No organomegaly. Bowel sounds are audible. Extremity exam; there is minimal warmth involving left lower extremity. No peripheral edema. 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 Assessment and recommendations; 1. Patient status post respiratory failure due to severe pneumonia then developed left lower extremity DVT with submassive pulmonary embolism with interval clinical improvement. Patient switched over to Lovenox from IV heparin. 2. History of hypertension and hypothyroidism. Continue Lovenox at least for the next few weeks with switching over to apixaban for total of 6 months. Agree with transfer to [facility]dc. Exam/Review of Systems Exam Vitals Vital Signs Date Temp Pulse Resp B/P (MAP) Pulse Ox O2 O2 Flow FiO2 Time Delivery Rate 03/17/19 98.3 80 19 109/55 95 11:05 (73) 03/17/19 Nasal 3.0 09:19 Cannula 03/17/19 35 05:04 Intake and Output 03/16/19 03/16/19 03/17/19 1515:00 23:00 07:00 IntakeIntake Total 1200 ml 480 ml 100 ml OutputOutput Total 400 ml BalanceBalance 1200 ml 480 ml -300 ml Results Result Diagram: 03/15/19 0602 03/15/19 0602 Results 24hrs Laboratory Tests Test 03/16/19 17:08 03/16/19 21:08 03/17/19 07:58 03/17/19 11:52 Bedside Glucose 116 110 109 113 Medications Medication Current Medications Levothyroxine Sodium (Synthroid) 88 mcg BEFORE BREAKFAST PO Last administered on 03/17/19at 06:51; Admin Dose 88 MCG; Start 02/15/19 at 07:00 Miscellaneous Information 1 ea NOTE XX ; Start 02/14/19 at 10:30 Glucose (Glutose) 15 gm Q15M PRN PO DECREASED GLUCOSE; Start 02/14/19 at 10:30 Glucose (Glutose) 22.5 gm Q15M PRN PO DECREASED GLUCOSE; Start 02/14/19 at 10:30 Dextrose (D50w Syringe) 25 ml Q15M PRN IV DECREASED GLUCOSE; Start 02/14/19 at 10:30 Dextrose (D50w Syringe) 50 ml Q15M PRN IV DECREASED GLUCOSE; Start 02/14/19 at 10:30 Glucagon (Glucagen) 1 mg Q15M PRN IM DECREASED GLUCOSE; Start 02/14/19 at 10:30 Glucose (Glutose) 15 gm Q15M PRN BUCCAL DECREASED GLUCOSE; Start 02/14/19 at 10:30 Bisacodyl (Dulcolax Supp) 10 mg DAILY PRN [place] CONSTIPATION Last administered on 02/21/19at 14:06; Admin Dose 10 MG; Start 02/15/19 at 11:00 IV Flush (NS 10 ml) 10 ml PRN PRN IV IV PROTOCOL; Start 02/18/19 at 15:30 Albuterol/ Ipratropium (Duoneb) 3 ml Q6H RESP THERAPY HHN Last administered on 03/17/19at 08:45; Admin Dose 3 ML; Start 03/01/19 at 14:00 Insulin Aspart (Novolog Insulin Pen) NOVOLOG *MILD* ALGORITHM WITH MEALS BEDTIME SC Last administered on 03/09/19at 17:27; Admin Dose 2 UNIT; Start 03/03/19 at 21:00 Meclizine HCl (Antivert) 12.5 mg BID PRN PO vertigo/dizziness; Start 03/05/19 at 15:30 Metoprolol Tartrate (Lopressor) 12.5 mg BID PO Last administered on 03/17/19at 08:23; Admin Dose 12.5 MG; Start 03/07/19 at 14:00 Famotidine (Pepcid) 20 mg Q12 PO Last administered on 03/17/19 08:23; Admin Dose 20 MG; Start 03/08/19 at 21:00 Aspirin (Halfprin) 81 mg DAILY PO Last administered on 03/17/19 08:23; Admin Dose 81 MG; Start 03/10/19 at 12:00 Enoxaparin Sodium (Lovenox) 95 mg Q12 SC Last administered on 03/17/19 08:22; Admin Dose 95 MG; Start 03/14/19 at 12:00 WILLA MARQUEZ Mar 17, 2019 11:56
--- NOTE | 2019-03-17 13:31 | CONS ---
Assessment/Plan Assessment/Plan Hospital Course (Demo Recall) IMPRESSION: 1. Congestive heart failure-diastolic acute on chronic 2. Lower extremity edema, assess for congestive heart failure.-preserved EF 3. Tachycardia, improved, status post intubation, likely due to respiratory distress. 4. Abnormal electrocardiogram with right axis deviation and T-wave flattening. -neg trop x 3 5. Down syndrome. 6. Hypothyroidism. 7. Diabetes mellitus. 8. Obstructive sleep apnea. 9. hypotension-improved overall and stable 10. Resp distress-recurrent with now transfer to ICU 11.encephalopathy 12. Fevers 14. positive troponin-minimal in the setting of resp distress and now trended negative 15. Pulmonary embolus-saddle embolus, Echo 03/12 with some RV hypokinesis and pressure/volume overload but patient HD stable at this time without resp distress Recc: -Now transferred back to [facility] -s/p course of abx, f/u cx data -continue low dose BB as tolerated only -continue asa -Continue bronchodilators -Continue now lovenox -pulmonary following. HD stable at this time with no definite indication for thrombolytics at this time Consultation Date/Type/Reason Admit Date/Time Feb 12, 2019 at 12:24 Initial Consult Date 02/12/19 Type of Consult Cardiology Reason for Consultation chest pain Requesting Provider: LORNA LYONS MD Date/Time of Note DATE: 03/17/19 TIME: 13:24 Exam/Review of Systems Vital Signs Vitals Vital Signs Date Temp Pulse Resp B/P (MAP) Pulse Ox O2 O2 Flow FiO2 Time Delivery Rate 03/17/19 98.3 80 19 109/55 95 11:05 (73) 03/17/19 Nasal 3.0 09:19 Cannula 03/17/19 35 05:04 Intake and Output 03/16/19 03/16/19 03/17/19 1515:00 23:00 07:00 IntakeIntake Total 1200 ml 480 ml 100 ml OutputOutput Total 400 ml BalanceBalance 1200 ml 480 ml -300 ml Exam Exam Review of Systems: CONSTITUTIONAL: No fevers, chills. PULMONARY: No sob CARDIOVASCULAR: No chest pain/palpitations GASTROINTESTINAL: No nausea/vomiting. GENITOURINARY: No hematuria/dysuria. MUSCULOSKELETAL: No myagias/arthalgias. PSYCHIATRIC: The patient denies depression. NEUROLOGIC: No weakness Constitutional: alert Psych: no complaints Head: normocephalic ENMT: mucosa pink and moist Neck: supple, jvd (9 cm water) Respiratory: diminished breath sounds (at bases/B) Cardiovascular: regular rate and rhythm Gastrointestinal: soft, non-tender Musculoskeletal: muscle tone (normal) Extremities: edema (no focal deficits) Neurological: focal weakness (none) Labs Result Diagram: 03/15/19 0602 03/15/19 0602 Results 24hrs Laboratory Tests Test 03/16/19 17:08 03/16/19 21:08 03/17/19 07:58 03/17/19 11:52 Bedside Glucose 116 110 109 113 Medications Medications Current Medications Levothyroxine Sodium (Synthroid) 88 mcg BEFORE BREAKFAST PO Last administered on 03/17/19at 06:51; Admin Dose 88 MCG; Start 02/15/19 at 07:00 Miscellaneous Information 1 ea NOTE XX ; Start 02/14/19 at 10:30 Glucose (Glutose) 15 gm Q15M PRN PO DECREASED GLUCOSE; Start 02/14/19 at 10:30 Glucose (Glutose) 22.5 gm Q15M PRN PO DECREASED GLUCOSE; Start 02/14/19 at 10:30 Dextrose (D50w Syringe) 25 ml Q15M PRN IV DECREASED GLUCOSE; Start 02/14/19 at 10:30 Dextrose (D50w Syringe) 50 ml Q15M PRN IV DECREASED GLUCOSE; Start 02/14/19 at 10:30 Glucagon (Glucagen) 1 mg Q15M PRN IM DECREASED GLUCOSE; Start 02/14/19 at 10:30 Glucose (Glutose) 15 gm Q15M PRN BUCCAL DECREASED GLUCOSE; Start 02/14/19 at 10:30 Bisacodyl (Dulcolax Supp) 10 mg DAILY PRN [place] CONSTIPATION Last administered on 02/21/19at 14:06; Admin Dose 10 MG; Start 02/15/19 at 11:00 IV Flush (NS 10 ml) 10 ml PRN PRN IV IV PROTOCOL; Start 02/18/19 at 15:30 Albuterol/ Ipratropium (Duoneb) 3 ml Q6H RESP THERAPY HHN Last administered on 03/17/19at 08:45; Admin Dose 3 ML; Start 03/01/19 at 14:00 Insulin Aspart (Novolog Insulin Pen) NOVOLOG *MILD* ALGORITHM WITH MEALS BEDTIME SC Last administered on 03/09/19 17:27; Admin Dose 2 UNIT; Start 03/03/19 at 21:00 Meclizine HCl (Antivert) 12.5 mg BID PRN PO vertigo/dizziness; Start 03/05/19 at 15:30 Metoprolol Tartrate (Lopressor) 12.5 mg BID PO Last administered on 03/17/19 08:23; Admin Dose 12.5 MG; Start 03/07/19 at 14:00 Famotidine (Pepcid) 20 mg Q12 PO Last administered on 03/17/19 08:23; Admin Dose 20 MG; Start 03/08/19 at 21:00 Aspirin (Halfprin) 81 mg DAILY PO Last administered on 03/17/19 08:23; Admin Dose 81 MG; Start 03/10/19 at 12:00 Enoxaparin Sodium (Lovenox) 95 mg Q12 SC Last administered on 03/17/19 08:22; Admin Dose 95 MG; Start 03/14/19 at 12:00 SHARIF TORRES Mar 17, 2019 13:31
[2019-03-18] VITALS (10 sets, daily range): BP systolic 97–111; BP diastolic 50–60; PULSE 71–111; RESP 18–22
[2019-03-18] MEDS: ALBUTEROL/IPRATROPIUM (NEB) 3 ML AMP HHN SCH ×4 (01:21→19:22)
[2019-03-18] MEDS: LEVOTHYROXINE 88 MCG TAB PO SCH (07:40)
[2019-03-18] MEDS: INSULIN ASPART [NOVOLOG] 3 ML PEN SC SCH ×4 (07:41→21:00)
[2019-03-18] MEDS: ASPIRIN (EC) 81 MG TAB PO SCH (08:18)
[2019-03-18] MEDS: METOPROLOL 25 MG TAB PO SCH ×2 (08:19→21:54)
[2019-03-18] MEDS: FAMOTIDINE 20 MG TAB PO SCH ×2 (08:19→21:36)
[2019-03-18] MEDS: ENOXAPARIN 100 MG/ML SYG SC SCH ×2 (08:34→21:50)
--- NOTE | 2019-03-18 10:46 | CONS ---
Consultation Date/Type/Reason Admit Date/Time Feb 12, 2019 at 12:24 Initial Consult Date Type of Consult Pulmonary/critical care Patient's condition remains critical. Still on fairly high FiO2. Patient however has remained hemodynamically stable. Patient does become agitated off sedation. General exam; young female, morbidly obese, orally intubated and sedated. Currently in no distress. Requesting Provider: LORNA LYONS MD Date/Time of Note DATE: 03/18/19 TIME: 10:43 24 HR Interval Summary Free Text/Dictation Patient's condition is stable. Remains completely awake and alert. Doing very well on room air. Denies any shortness of breath, chest pain. General exam; young woman, awake alert, currently in no distress. H ENT exam; supple neck, no JVD. No lymphadenopathy. Midline trachea. No thyromegaly. No neck masses. Chest exam; clear to auscultation. S1-S2 audible, no murmurs. Regular rhythm. Abdomen exam; soft, protuberant. Nontender. No organomegaly. Bowel sounds are audible. Extremity exam; no peripheral edema. No left lower extremity tenderness. There is minimal increased warmth. 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 Assessment and recommendations; 1. Patient with history of Down syndrome admitted with severe bilateral pneumonia status post extubation several days ago but then patient developed left lower extremity DVT with submassive saddle pulmonary embolism. Patient has been switched over to Lovenox with improving clinical status. 2. History of hypertension and hypothyroidism. Continue current supportive care. Continue Lovenox for now. Patient awaiting discharge to custodial. Will need total of 6 months of anti-coagulation. Exam/Review of Systems Exam Vitals Vital Signs Date Temp Pulse Resp B/P (MAP) Pulse Ox O2 O2 Flow FiO2 Time Delivery Rate 03/18/19 95 20 97 Nasal 3.0 08:15 Cannula 03/18/19 98.2 108/52 07:26 (70) 03/18/19 35 05:05 Intake and Output 03/17/19 03/17/19 03/18/19 1515:00 23:00 07:00 IntakeIntake Total 700 ml 500 ml BalanceBalance 700 ml 500 ml Results Result Diagram: 03/18/19 0603 03/18/19 0603 Results 24hrs Laboratory Tests Test 03/17/19 11:52 03/17/19 17:19 03/17/19 20:31 03/18/19 06:03 Bedside Glucose 113 100 96 White Blood Count 5.7 # Red Blood Count 4.80 Hemoglobin 13.4 Hematocrit 43.6 Mean Corpuscular Volume 90.8 Mean Corpuscular 27.9 L Hemoglobin Mean Corpuscular 30.7 L Hemoglobin Concent Red Cell Distribution 20.6 H Width Platelet Count 211 Mean Platelet Volume 9.3 Immature Granulocytes % 8.400 H Neutrophils % Segmented Neutrophils 46 % (Manual) Band Neutrophils % 9 H (Manual) Lymphocytes % Lymphocytes % (Manual) 15 Reactive Lymphocytes 13 H % (Manual) Monocytes % Monocytes % (Manual) 12 H Eosinophils % Basophils % Basophils % (Manual) 2 Myelocytes % (Manual) 2 H Promyelocytes % (Manual) 1 H Nucleated Red Blood 1 H Cells % Immature Granulocytes # 0.480 H Neutrophils # Neutrophils # (Manual) 2.7 Band Neutrophils # 0.5 Lymphocytes (Manual) 0.8 Lymphocytes # Reactive Lymphocytes # 0.7 H Monocytes # Monocytes # (Manual) 0.6 Eosinophils # Basophils # Basophils # (Manual) 0.1 H Myelocytes # 0.1 H Promyelocytes # 0.0 Nucleated Red Blood Cells # Platelet Estimate NORMAL Polychromasia 1+ Poikilocytosis 1+ Anisocytosis 1+ Sodium Level 140 Potassium Level 4.1 Chloride Level 103 Carbon Dioxide Level 29 Anion Gap 8 Blood Urea Nitrogen 13 Creatinine 0.62 Est Glomerular Filtrat > 60 Rate mL/min Glucose Level 109 Calcium Level 9.3 Phosphorus Level 5.7 H Magnesium Level 2.1 Test 03/18/19 07:41 Bedside Glucose 105 Medications Medication Current Medications Levothyroxine Sodium (Synthroid) 88 mcg BEFORE BREAKFAST PO Last administered on 03/18/19at 07:40; Admin Dose 88 MCG; Start 02/15/19 at 07:00 Miscellaneous Information 1 ea NOTE XX ; Start 02/14/19 at 10:30 Glucose (Glutose) 15 gm Q15M PRN PO DECREASED GLUCOSE; Start 02/14/19 at 10:30 Glucose (Glutose) 22.5 gm Q15M PRN PO DECREASED GLUCOSE; Start 02/14/19 at 10:30 Dextrose (D50w Syringe) 25 ml Q15M PRN IV DECREASED GLUCOSE; Start 02/14/19 at 10:30 Dextrose (D50w Syringe) 50 ml Q15M PRN IV DECREASED GLUCOSE; Start 02/14/19 at 10:30 Glucagon (Glucagen) 1 mg Q15M PRN IM DECREASED GLUCOSE; Start 02/14/19 at 10:30 Glucose (Glutose) 15 gm Q15M PRN BUCCAL DECREASED GLUCOSE; Start 02/14/19 at 10:30 Bisacodyl (Dulcolax Supp) 10 mg DAILY PRN [place] CONSTIPATION Last administered on 02/21/19at 14:06; Admin Dose 10 MG; Start 02/15/19 at 11:00 IV Flush (NS 10 ml) 10 ml PRN PRN IV IV PROTOCOL; Start 02/18/19 at 15:30 Albuterol/ Ipratropium (Duoneb) 3 ml Q6H RESP THERAPY HHN Last administered on 03/18/19at 08:51; Admin Dose 3 ML; Start 03/01/19 at 14:00 Insulin Aspart (Novolog Insulin Pen) NOVOLOG *MILD* ALGORITHM WITH MEALS BEDTIME SC Last administered on 03/09/19 17:27; Admin Dose 2 UNIT; Start 03/03/19 at 21:00 Meclizine HCl (Antivert) 12.5 mg BID PRN PO vertigo/dizziness; Start 03/05/19 at 15:30 Metoprolol Tartrate (Lopressor) 12.5 mg BID PO Last administered on 03/18/19 08:19; Admin Dose 12.5 MG; Start 03/07/19 at 14:00 Famotidine (Pepcid) 20 mg Q12 PO Last administered on 03/18/19 08:19; Admin Dose 20 MG; Start 03/08/19 at 21:00 Aspirin (Halfprin) 81 mg DAILY PO Last administered on 03/18/19 08:18; Admin Dose 81 MG; Start 03/10/19 at 12:00 Enoxaparin Sodium (Lovenox) 95 mg Q12 SC Last administered on 03/18/19 08:34; Admin Dose 95 MG; Start 03/14/19 at 12:00 WILLA MARQUEZ Mar 18, 2019 10:46
--- NOTE | 2019-03-18 11:20 | CONS ---
Consult Date/Type/Reason Admit Date/Time Feb 12, 2019 at 12:24 Initial Consult Date Type of Consultation: Pulm/CCM Requesting Provider: LORNA LYONS MD Date/Time of Note DATE: 03/18/19 TIME: 11:18 Subjective NO acute events - pt better overall - con't to keep euvolemic. ROS: No fever, no chills, no nausea, no vomiting, no diarrhea/constipation - mild SOB, no CP now. Objective Vitals Vital Signs Date Temp Pulse Resp B/P (MAP) Pulse Ox O2 O2 Flow FiO2 Time Delivery Rate 03/18/19 98.6 97 18 102/50 96 11:15 (67) 03/18/19 Nasal 3.0 08:15 Cannula 03/18/19 35 05:05 Intake and Output 03/17/19 03/17/19 03/18/19 1515:00 23:00 07:00 IntakeIntake Total 700 ml 500 ml BalanceBalance 700 ml 500 ml Exam General: WN/WD/NAD, AOx 1 Down Sx HEENT: Unicetric/atraumatic/EOMI (does not follow commands) NECK: JVD elevated, no thyromegaly Lymph: no lymphadenopathy HEART: regular with no S3, II/ systolic murmur at apex, PMI L LUNGS: Coarse sounds ABD: soft, NT, ND, +BS : Intact Neuro: non focal SKIN: chronic changes EXT: trace edema Results/Medications Result Diagram: 03/18/19 0603 03/18/19 0603 Results 24 hrs Laboratory Tests Test 03/17/19 11:52 03/17/19 17:19 03/17/19 20:31 03/18/19 06:03 Bedside Glucose 113 100 96 White Blood Count 5.7 # Red Blood Count 4.80 Hemoglobin 13.4 Hematocrit 43.6 Mean Corpuscular Volume 90.8 Mean Corpuscular 27.9 L Hemoglobin Mean Corpuscular 30.7 L Hemoglobin Concent Red Cell Distribution 20.6 H Width Platelet Count 211 Mean Platelet Volume 9.3 Immature Granulocytes % 8.400 H Neutrophils % Segmented Neutrophils 46 % (Manual) Band Neutrophils % 9 H (Manual) Lymphocytes % Lymphocytes % (Manual) 15 Reactive Lymphocytes 13 H % (Manual) Monocytes % Monocytes % (Manual) 12 H Eosinophils % Basophils % Basophils % (Manual) 2 Myelocytes % (Manual) 2 H Promyelocytes % (Manual) 1 H Nucleated Red Blood 1 H Cells % Immature Granulocytes # 0.480 H Neutrophils # Neutrophils # (Manual) 2.7 Band Neutrophils # 0.5 Lymphocytes (Manual) 0.8 Lymphocytes # Reactive Lymphocytes # 0.7 H Monocytes # Monocytes # (Manual) 0.6 Eosinophils # Basophils # Basophils # (Manual) 0.1 H Myelocytes # 0.1 H Promyelocytes # 0.0 Nucleated Red Blood Cells # Platelet Estimate NORMAL Polychromasia 1+ Poikilocytosis 1+ Anisocytosis 1+ Sodium Level 140 Potassium Level 4.1 Chloride Level 103 Carbon Dioxide Level 29 Anion Gap 8 Blood Urea Nitrogen 13 Creatinine 0.62 Est Glomerular Filtrat > 60 Rate mL/min Glucose Level 109 Calcium Level 9.3 Phosphorus Level 5.7 H Magnesium Level 2.1 Test 03/18/19 07:41 Bedside Glucose 105 Home Meds Reported Medications [place] Carbonate* ([place]*) 300 Mg Cap, 600 MG PO QHS, CAP 02/12/19 Levothyroxine Sodium* (Levoxyl*) 88 Mcg Tablet, 88 MCG PO BEFORE BREAKFAST, #30 TAB 02/12/19 Loxapine Succinate (Loxapine) 10 Mg Capsule, 10 MG PO QHS, CAP 02/12/19 Cyanocobalamin* (Vitamin B12*) 100 Mcg Tab, 100 MCG PO DAILY, TAB 02/12/19 Loratadine* (Loratadine*) 10 Mg Tablet, 10 MG PO DAILY, #30 TAB 02/12/19 Metformin Hcl* (Metformin Hcl*) 500 Mg Tablet, 500 MG PO WITH BREAKFAST, #30 TAB 02/12/19 Propranolol Hcl* (Propranolol Hcl*) 10 Mg Tablet, 10 MG PO BID, TAB 02/12/19 Ergocalciferol (Vitamin D2) (VITAMIN D2) 50,000 Unit Capsule, 27963 UNIT PO AMADOR Sunday, CAP 02/12/19 Medications Current Medications Levothyroxine Sodium (Synthroid) 88 mcg BEFORE BREAKFAST PO Last administered on 03/18/19at 07:40; Admin Dose 88 MCG; Start 02/15/19 at 07:00 Miscellaneous Information 1 ea NOTE XX ; Start 02/14/19 at 10:30 Glucose (Glutose) 15 gm Q15M PRN PO DECREASED GLUCOSE; Start 02/14/19 at 10:30 Glucose (Glutose) 22.5 gm Q15M PRN PO DECREASED GLUCOSE; Start 02/14/19 at 10:30 Dextrose (D50w Syringe) 25 ml Q15M PRN IV DECREASED GLUCOSE; Start 02/14/19 at 10:30 Dextrose (D50w Syringe) 50 ml Q15M PRN IV DECREASED GLUCOSE; Start 02/14/19 at 10:30 Glucagon (Glucagen) 1 mg Q15M PRN IM DECREASED GLUCOSE; Start 02/14/19 at 10:30 Glucose (Glutose) 15 gm Q15M PRN BUCCAL DECREASED GLUCOSE; Start 02/14/19 at 10:30 Bisacodyl (Dulcolax Supp) 10 mg DAILY PRN [place] CONSTIPATION Last administered on 02/21/19at 14:06; Admin Dose 10 MG; Start 02/15/19 at 11:00 IV Flush (NS 10 ml) 10 ml PRN PRN IV IV PROTOCOL; Start 02/18/19 at 15:30 Albuterol/ Ipratropium (Duoneb) 3 ml Q6H RESP THERAPY HHN Last administered on 03/18/19at 08:51; Admin Dose 3 ML; Start 03/01/19 at 14:00 Insulin Aspart (Novolog Insulin Pen) NOVOLOG *MILD* ALGORITHM WITH MEALS BEDTIME SC Last administered on 03/09/19at 17:27; Admin Dose 2 UNIT; Start 03/03 at 21:00 Meclizine HCl (Antivert) 12.5 mg BID PRN PO vertigo/dizziness; Start 03/05/19 at 15:30 Metoprolol Tartrate (Lopressor) 12.5 mg BID PO Last administered on 03/18/19at 08:19; Admin Dose 12.5 MG; Start 03/07/19 at 14:00 Famotidine (Pepcid) 20 mg Q12 PO Last administered on 03/18/19 08:19; Admin Dose 20 MG; Start 03/08/19 at 21:00 Aspirin (Halfprin) 81 mg DAILY PO Last administered on 03/18/19 08:18; Admin Dose 81 MG; Start 03/10/19 at 12:00 Enoxaparin Sodium (Lovenox) 95 mg Q12 SC Last administered on 03/18/19at 08:34; Admin Dose 95 MG; Start 03/14/19 at 12:00 Assessment/Plan Hospital Course (Demo Recall) 1. Respiratory failure, assess for congestive heart failure - much better now, extubated, on eroom air. 2. Lower extremity edema, assess for congestive heart failure- con't diuresis - increased urine output. On meds now. Rate controlled. Improved. Con't to monitor clinically now, Improved. Improved with Rx. 3. Tachycardia, improved, status post intubation, likely due to respiratory distress. Sinus tach - better now. Treated. NOw in sinus, Rate controlled. 4. Abnormal electrocardiogram with right axis deviation and T-wave flattening. Assess for acute coronary syndrome. NO CP now. 5. Down syndrome. Supportive Rx as needed. 6. Hypothyroidism - on meds. Treated. On meds. 7. Diabetes mellitus- con't to keep euglycemic. Con't to keep euglycemic. On meds. 8. Obstructive sleep apnea- weight loss advised. 9. CHF - diast HF - acute on chronic, con'y gentle diuresis. Spot Rx as needed. Better. BRIAN PATTERSON MD Mar 18, 2019 11:20
--- NOTE | 2019-03-18 15:16 | PN ---
Date/Time of Note Date/Time of Note DATE: 03/18/19 TIME: 15:14 Assessment/Plan VTE Prophylaxis Risk score (from Ns)>0 risk: 8 SCD applied (from Ns): No SCD contraindicated: low risk/ambulating Pharmacological prophylaxis: NA/contraindicated Pharm contraindication: low risk/ambulating Lines/Catheters [facility]): PICC Line Central line still needed: Yes Urinary Cath still in place: No Assessment/Plan Assessment/Plan Hospital Course # large saddle pulmonary embolus straddling both main pulmonary arteries with large amount of clot burden extending into both lower lobe pulmonary arteries. A small amount of nonocclusive clot is also noted in the right upper lobe pulmonary artery. There is evidence of right heart strain with enlargement of the right ventricle with extensive left leg DVT # Wedge-shaped area of consolidation in the right lower lobe may represent an area of pulmonary infarct with rt sided chest pain/abdominal pain # Positive troponin with an episode of chest pain and shortness of breath, EKG showed sinus tachycardia, ABG showed marked hypoxia even though the chest x-ray is not showing much disease . She has been nonambulatory # Severe altered mental status likely secondary to metabolic encephalopathy, likely secondary to CO2 narcosis. pt is alert, oriented 2 #. Hypoxic respiratory failure,still on supplemental oxygen #. Respiratory alkalosis, no ABG today #. Morbid obesity. # Down syndrome. #. Hypertension, now normotensive. #. Diabetes mellitus type II blood sugar controlled. # History of ventral hernia repair. #. Leukocytosis secondary to pneumonia, resolved #. Hypothyroidism 11. KIRIT, more likely due to sepsis, resolved Assessment/Plan -c/w Lovenox BID - PT/OT - nebs prn - cw MTP/ASa per cards - BIPAP Has been discharged but disposition is difficult as nursing homes are not accepting her due to her age, asked case management to ask help from the regional center Result Diagram: Result Diagram: 03/18/19 0603 03/18/19 0603 Results 24hrs Laboratory Tests Test 03/17/19 17:19 03/17/19 20:31 03/18/19 06:03 03/18/19 07:41 Bedside Glucose 100 96 105 White Blood Count 5.7 # Red Blood Count 4.80 Hemoglobin 13.4 Hematocrit 43.6 Mean Corpuscular Volume 90.8 Mean Corpuscular 27.9 L Hemoglobin Mean Corpuscular 30.7 L Hemoglobin Concent Red Cell Distribution 20.6 H Width Platelet Count 211 Mean Platelet Volume 9.3 Immature Granulocytes % 8.400 H Neutrophils % Segmented Neutrophils 46 % (Manual) Band Neutrophils % 9 H (Manual) Lymphocytes % Lymphocytes % (Manual) 15 Reactive Lymphocytes 13 H % (Manual) Monocytes % Monocytes % (Manual) 12 H Eosinophils % Basophils % Basophils % (Manual) 2 Myelocytes % (Manual) 2 H Promyelocytes % (Manual) 1 H Nucleated Red Blood 1 H Cells % Immature Granulocytes # 0.480 H Neutrophils # Neutrophils # (Manual) 2.7 Band Neutrophils # 0.5 Lymphocytes (Manual) 0.8 Lymphocytes # Reactive Lymphocytes # 0.7 H Monocytes # Monocytes # (Manual) 0.6 Eosinophils # Basophils # Basophils # (Manual) 0.1 H Myelocytes # 0.1 H Promyelocytes # 0.0 Nucleated Red Blood Cells # Platelet Estimate NORMAL Polychromasia 1+ Poikilocytosis 1+ Anisocytosis 1+ Sodium Level 140 Potassium Level 4.1 Chloride Level 103 Carbon Dioxide Level 29 Anion Gap 8 Blood Urea Nitrogen 13 Creatinine 0.62 Est Glomerular Filtrat > 60 Rate mL/min Glucose Level 109 Calcium Level 9.3 Phosphorus Level 5.7 H Magnesium Level 2.1 Test 03/18/19 11:21 Bedside Glucose 142 Subjective 24 Hr Interval Summary Free Text/Dictation Doing well. CTT of the head was negative. Exam/Review of Systems Exam Vitals Vital Signs Date Temp Pulse Resp B/P (MAP) Pulse Ox O2 O2 Flow FiO2 Time Delivery Rate 03/18/19 98.4 101 18 111/55 96 15:07 (73) 03/18/19 Nasal 3.0 13:48 Cannula 03/18/19 35 05:05 Intake and Output 03/17/19 03/17/19 03/18/19 1515:00 23:00 07:00 IntakeIntake Total 700 ml 500 ml BalanceBalance 700 ml 500 ml Exam Constitutional: obese, Head: normocephalic, atraumatic Eyes: nl lids ENMT: nl external ears & nose, mucosa pink and moist Neck: supple Respiratory: diminished breath sounds Cardiovascular: regular rate and rhythm Gastrointestinal: soft, distended Results Results 24hrs Laboratory Tests Test 03/17/19 17:19 03/17/19 20:31 03/18/19 06:03 03/18/19 07:41 Bedside Glucose 100 96 105 White Blood Count 5.7 # Red Blood Count 4.80 Hemoglobin 13.4 Hematocrit 43.6 Mean Corpuscular Volume 90.8 Mean Corpuscular 27.9 L Hemoglobin Mean Corpuscular 30.7 L Hemoglobin Concent Red Cell Distribution 20.6 H Width Platelet Count 211 Mean Platelet Volume 9.3 Immature Granulocytes % 8.400 H Neutrophils % Segmented Neutrophils 46 % (Manual) Band Neutrophils % 9 H (Manual) Lymphocytes % Lymphocytes % (Manual) 15 Reactive Lymphocytes 13 H % (Manual) Monocytes % Monocytes % (Manual) 12 H Eosinophils % Basophils % Basophils % (Manual) 2 Myelocytes % (Manual) 2 H Promyelocytes % (Manual) 1 H Nucleated Red Blood 1 H Cells % Immature Granulocytes # 0.480 H Neutrophils # Neutrophils # (Manual) 2.7 Band Neutrophils # 0.5 Lymphocytes (Manual) 0.8 Lymphocytes # Reactive Lymphocytes # 0.7 H Monocytes # Monocytes # (Manual) 0.6 Eosinophils # Basophils # Basophils # (Manual) 0.1 H Myelocytes # 0.1 H Promyelocytes # 0.0 Nucleated Red Blood Cells # Platelet Estimate NORMAL Polychromasia 1+ Poikilocytosis 1+ Anisocytosis 1+ Sodium Level 140 Potassium Level 4.1 Chloride Level 103 Carbon Dioxide Level 29 Anion Gap 8 Blood Urea Nitrogen 13 Creatinine 0.62 Est Glomerular Filtrat > 60 Rate mL/min Glucose Level 109 Calcium Level 9.3 Phosphorus Level 5.7 H Magnesium Level 2.1 Test 03/18/19 11:21 Bedside Glucose 142 Medications Medication Current Medications Levothyroxine Sodium (Synthroid) 88 mcg BEFORE BREAKFAST PO Last administered on 03/18/19at 07:40; Admin Dose 88 MCG; Start 02/15/19 at 07:00 Miscellaneous Information 1 ea NOTE XX ; Start 02/14/19 at 10:30 Glucose (Glutose) 15 gm Q15M PRN PO DECREASED GLUCOSE; Start 02/14/19 at 10:30 Glucose (Glutose) 22.5 gm Q15M PRN PO DECREASED GLUCOSE; Start 02/14/19 at 10:30 Dextrose (D50w Syringe) 25 ml Q15M PRN IV DECREASED GLUCOSE; Start 02/14/19 at 10:30 Dextrose (D50w Syringe) 50 ml Q15M PRN IV DECREASED GLUCOSE; Start 02/14/19 at 10:30 Glucagon (Glucagen) 1 mg Q15M PRN IM DECREASED GLUCOSE; Start 02/14/19 at 10:30 Glucose (Glutose) 15 gm Q15M PRN BUCCAL DECREASED GLUCOSE; Start 02/14/19 at 10:30 Bisacodyl (Dulcolax Supp) 10 mg DAILY PRN [place] CONSTIPATION Last administered on 02/21/19 14:06; Admin Dose 10 MG; Start 02/15/19 at 11:00 IV Flush (NS 10 ml) 10 ml PRN PRN IV IV PROTOCOL; Start 02/18/19 at 15:30 Albuterol/ Ipratropium (Duoneb) 3 ml Q6H RESP THERAPY HHN Last administered on 03/18/19 13:47; Admin Dose 3 ML; Start 03/01/19 at 14:00 Insulin Aspart (Novolog Insulin Pen) NOVOLOG *MILD* ALGORITHM WITH MEALS BEDTIME SC Last administered on 03/18/19 11:34; Admin Dose 1 UNIT; Start 03/03/19 at 21:00 Meclizine HCl (Antivert) 12.5 mg BID PRN PO vertigo/dizziness; Start 03/05/19 at 15:30 Metoprolol Tartrate (Lopressor) 12.5 mg BID PO Last administered on 03/18/19 08:19; Admin Dose 12.5 MG; Start 03/07/19 at 14:00 Famotidine (Pepcid) 20 mg Q12 PO Last administered on 03/18/19 08:19; Admin Dose 20 MG; Start 03/08/19 at 21:00 Aspirin (Halfprin) 81 mg DAILY PO Last administered on 03/18/19 08:18; Admin Dose 81 MG; Start 03/10/19 at 12:00 Enoxaparin Sodium (Lovenox) 95 mg Q12 SC Last administered on 03/18/19 08:34; Admin Dose 95 MG; Start 03/14/19 at 12:00 LORNA LYONS MD Mar 18, 2019 15:16
[2019-03-19] VITALS (10 sets, daily range): BP systolic 106–157; BP diastolic 56–81; PULSE 68–108; RESP 18–19
[2019-03-19] MEDS: ALBUTEROL/IPRATROPIUM (NEB) 3 ML AMP HHN SCH ×4 (01:20→20:50)
[2019-03-19] MEDS: LEVOTHYROXINE 88 MCG TAB PO SCH (07:21)
[2019-03-19] MEDS: INSULIN ASPART [NOVOLOG] 3 ML PEN SC SCH ×4 (07:42→20:11)
[2019-03-19] MEDS: METOPROLOL 25 MG TAB PO SCH ×2 (08:22→20:05)
[2019-03-19] MEDS: ASPIRIN (EC) 81 MG TAB PO SCH (08:22)
[2019-03-19] MEDS: ENOXAPARIN 100 MG/ML SYG SC SCH ×2 (08:24→20:11)
[2019-03-19] MEDS: FAMOTIDINE 20 MG TAB PO SCH ×2 (08:24→20:05)
--- NOTE | 2019-03-19 10:50 | CONS ---
Consultation Date/Type/Reason Admit Date/Time Feb 12, 2019 at 12:24 Initial Consult Date Type of Consult Pulmonary/critical care Patient's condition remains critical. Still on fairly high FiO2. Patient however has remained hemodynamically stable. Patient does become agitated off sedation. General exam; young female, morbidly obese, orally intubated and sedated. Currently in no distress. Requesting Provider: LORNA LYONS MD Date/Time of Note DATE: 03/19/19 TIME: 10:47 24 HR Interval Summary Free Text/Dictation Patient's condition is stable. Has remained hemodynamically stable. Denies chest pain, shortness of breath. General exam; young woman, awake alert, currently no distress. H ENT exam; supple neck, no JVD. No lymphadenopathy. Midline trachea. No thyromegaly. No neck masses. Chest exam; clear to auscultation. S1-S2 audible, no murmurs. Regular rhythm. Abdomen exam; soft, nondistended. Nontender. No organomegaly. Bowel sounds are audible. Extremity exam; no peripheral edema clubbing. 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 Assessment and recommendations; 1. Patient with history of Down syndrome initially admitted with severe bilateral pneumonia requiring intubation, status post extubation several days ago was transferred to the medical floor with the patient developed left lower extremity DVT with extensive submassive saddle pulmonary embolism. Patient is doing very well on Lovenox. 2. History of hypothyroidism and hypertension. 3. Possible underlying hypercapnia. Continue current supportive care. Repeat ABG to assess for home BiPAP use. Further recommendations once ABG is performed. As outlined earlier, patient will benefit from being on Lovenox at least for couple of weeks before switching over to apixaban for total of 6 months of anticoagulation. Exam/Review of Systems Exam Vitals Vital Signs Date Temp Pulse Resp B/P (MAP) Pulse Ox O2 O2 Flow FiO2 Time Delivery Rate 03/19/19 Nasal 3.0 08:31 Cannula 03/19/19 98.1 82 107/58 97 07:21 (74) 03/19/19 35 05:01 03/19/19 18 04:00 Intake and Output 03/18/19 03/18/19 03/19/19 1515:00 23:00 07:00 IntakeIntake Total 500 ml 230 ml 300 ml BalanceBalance 500 ml 230 ml 300 ml Results Result Diagram: 03/18/19 0603 03/18/19 0603 Results 24hrs Laboratory Tests Test 03/18/19 11:21 03/18/19 17:08 03/18/19 21:33 03/19/19 07:41 Bedside Glucose 142 110 127 120 Medications Medication Current Medications Levothyroxine Sodium (Synthroid) 88 mcg BEFORE BREAKFAST PO Last administered on 03/19/19at 07:21; Admin Dose 88 MCG; Start 02/15/19 at 07:00 Miscellaneous Information 1 ea NOTE XX ; Start 02/14/19 at 10:30 Glucose (Glutose) 15 gm Q15M PRN PO DECREASED GLUCOSE; Start 02/14/19 at 10:30 Glucose (Glutose) 22.5 gm Q15M PRN PO DECREASED GLUCOSE; Start 02/14/19 at 10:30 Dextrose (D50w Syringe) 25 ml Q15M PRN IV DECREASED GLUCOSE; Start 02/14/19 at 10:30 Dextrose (D50w Syringe) 50 ml Q15M PRN IV DECREASED GLUCOSE; Start 02/14/19 at 10:30 Glucagon (Glucagen) 1 mg Q15M PRN IM DECREASED GLUCOSE; Start 02/14/19 at 10:30 Glucose (Glutose) 15 gm Q15M PRN BUCCAL DECREASED GLUCOSE; Start 02/14/19 at 10:30 Bisacodyl (Dulcolax Supp) 10 mg DAILY PRN [place] CONSTIPATION Last administered on 02/21/19at 14:06; Admin Dose 10 MG; Start 02/15/19 at 11:00 IV Flush (NS 10 ml) 10 ml PRN PRN IV IV PROTOCOL; Start 02/18/19 at 15:30 Albuterol/ Ipratropium (Duoneb) 3 ml Q6H RESP THERAPY HHN Last administered on 03/19/19at 07:26; Admin Dose 3 ML; Start 03/01/19 at 14:00 Insulin Aspart (Novolog Insulin Pen) NOVOLOG *MILD* ALGORITHM WITH MEALS BEDTIME SC Last administered on 03/18/19at 11:34; Admin Dose 1 UNIT; Start 03/03/19 at 21:00 Meclizine HCl (Antivert) 12.5 mg BID PRN PO vertigo/dizziness; Start 03/05/19 at 15:30 Metoprolol Tartrate (Lopressor) 12.5 mg BID PO Last administered on 03/19/19 08:22; Admin Dose 12.5 MG; Start 03/07/19 at 14:00 Famotidine (Pepcid) 20 mg Q12 PO Last administered on 03/19/19 08:24; Admin Dose 20 MG; Start 03/08/19 at 21:00 Aspirin (Halfprin) 81 mg DAILY PO Last administered on 03/19/19 08:22; Admin Dose 81 MG; Start 03/10/19 at 12:00 Enoxaparin Sodium (Lovenox) 95 mg Q12 SC Last administered on 03/19/19 08:24; Admin Dose 95 MG; Start 03/14/19 at 12:00 WILLA MARQUEZ Mar 19, 2019 10:50
--- NOTE | 2019-03-19 12:39 | PN ---
Date/Time of Note Date/Time of Note DATE: 03/19/19 TIME: 12:37 Assessment/Plan VTE Prophylaxis Risk score (from Ns)>0 risk: 11 SCD applied (from Ns): No SCD contraindicated: low risk/ambulating Pharmacological prophylaxis: NA/contraindicated Pharm contraindication: low risk/ambulating Lines/Catheters [facility] ([facility] PICC Line Central line still needed: Yes Urinary Cath still in place: No Assessment/Plan Assessment/Plan Hospital Course # large saddle pulmonary embolus straddling both main pulmonary arteries with large amount of clot burden extending into both lower lobe pulmonary arteries. A small amount of nonocclusive clot is also noted in the right upper lobe pulmonary artery. There is evidence of right heart strain with enlargement of the right ventricle with extensive left leg DVT # Wedge-shaped area of consolidation in the right lower lobe may represent an area of pulmonary infarct with rt sided chest pain/abdominal pain # Positive troponin with an episode of chest pain and shortness of breath, EKG showed sinus tachycardia, ABG showed marked hypoxia even though the chest x-ray is not showing much disease . She has been nonambulatory # Severe altered mental status likely secondary to metabolic encephalopathy, likely secondary to CO2 narcosis. pt is alert, oriented 2 #. Hypoxic respiratory failure,still on supplemental oxygen #. Respiratory alkalosis, no ABG today #. Morbid obesity. # Down syndrome. #. Hypertension, now normotensive. #. Diabetes mellitus type II blood sugar controlled. # History of ventral hernia repair. #. Leukocytosis secondary to pneumonia, resolved #. Hypothyroidism 11. KIRIT, more likely due to sepsis, resolved Assessment/Plan -c/w Lovenox BID - PT/OT - nebs prn - cw MTP/ASa per cards - BIPAP Has been discharged but disposition is difficult as nursing homes are not accepting her due to her age, asked case management to ask help from the regional center Repeat ABG LISANDRA? Result Diagram: 03/18/19 0603 03/18/19 0603 Results 24hrs Laboratory Tests Test 03/18/19 17:08 03/18/19 21:33 03/19/19 07:41 03/19/19 11:25 Bedside Glucose 110 127 120 124 Subjective 24 Hr Interval Summary Free Text/Dictation Per mom patient is better Patient participated in physical therapy Exam/Review of Systems Exam Vitals Vital Signs Date Temp Pulse Resp B/P (MAP) Pulse Ox O2 O2 Flow FiO2 Time Delivery Rate 03/19/19 98.6 93 19 106/64 96 11:28 (78) 03/19/19 Nasal 3.0 08:31 Cannula 03/19/19 35 05:01 Intake and Output 03/18/19 03/18/19 03/19/19 1515:00 23:00 07:00 IntakeIntake Total 500 ml 230 ml 300 ml BalanceBalance 500 ml 230 ml 300 ml Exam Constitutional: obese, Head: normocephalic, atraumatic Eyes: nl lids ENMT: nl external ears & nose, mucosa pink and moist Neck: supple Respiratory: diminished breath sounds Cardiovascular: regular rate and rhythm Gastrointestinal: soft, distended Results Results 24hrs Laboratory Tests Test 03/18/19 17:08 03/18/19 21:33 03/19/19 07:41 03/19/19 11:25 Bedside Glucose 110 127 120 124 Medications Medication Current Medications Levothyroxine Sodium (Synthroid) 88 mcg BEFORE BREAKFAST PO Last administered on 03/19/19at 07:21; Admin Dose 88 MCG; Start 02/15/19 at 07:00 Miscellaneous Information 1 ea NOTE XX ; Start 02/14/19 at 10:30 Glucose (Glutose) 15 gm Q15M PRN PO DECREASED GLUCOSE; Start 02/14/19 at 10:30 Glucose (Glutose) 22.5 gm Q15M PRN PO DECREASED GLUCOSE; Start 02/14/19 at 10:30 Dextrose (D50w Syringe) 25 ml Q15M PRN IV DECREASED GLUCOSE; Start 02/14/19 at 10:30 Dextrose (D50w Syringe) 50 ml Q15M PRN IV DECREASED GLUCOSE; Start 02/14/19 at 10:30 Glucagon (Glucagen) 1 mg Q15M PRN IM DECREASED GLUCOSE; Start 02/14/19 at 10:30 Glucose (Glutose) 15 gm Q15M PRN BUCCAL DECREASED GLUCOSE; Start 02/14/19 at 10:30 Bisacodyl (Dulcolax Supp) 10 mg DAILY PRN [place] CONSTIPATION Last administered on 02/21/19at 14:06; Admin Dose 10 MG; Start 02/15/19 at 11:00 IV Flush (NS 10 ml) 10 ml PRN PRN IV IV PROTOCOL; Start 02/18/19 at 15:30 Albuterol/ Ipratropium (Duoneb) 3 ml Q6H RESP THERAPY HHN Last administered on 03/19/19 07:26; Admin Dose 3 ML; Start 03/01/19 at 14:00 Insulin Aspart (Novolog Insulin Pen) NOVOLOG *MILD* ALGORITHM WITH MEALS BEDTIME SC Last administered on 03/18/19 11:34; Admin Dose 1 UNIT; Start 03/03/19 at 21:00 Meclizine HCl (Antivert) 12.5 mg BID PRN PO vertigo/dizziness; Start 03/05/19 at 15:30 Metoprolol Tartrate (Lopressor) 12.5 mg BID PO Last administered on 03/19/19 08:22; Admin Dose 12.5 MG; Start 03/07/19 at 14:00 Famotidine (Pepcid) 20 mg Q12 PO Last administered on 03/19/19 08:24; Admin Dos e 20 MG; Start 03/08/19 at 21:00 Aspirin (Halfprin) 81 mg DAILY PO Last administered on 03/19/19 08:22; Admin Dose 81 MG; Start 03/10/19 at 12:00 Enoxaparin Sodium (Lovenox) 95 mg Q12 SC Last administered on 03/19/19 08:24; Admin Dose 95 MG; Start 03/14/19 at 12:00 LORNA LYONS MD Mar 19, 2019 12:39
--- NOTE | 2019-03-19 13:51 | CONS ---
Assessment/Plan Assessment/Plan Hospital Course (Demo Recall) IMPRESSION: 1. Congestive heart failure-diastolic acute on chronic 2. Lower extremity edema, assess for congestive heart failure.-preserved EF 3. Tachycardia, improved, status post intubation, likely due to respiratory distress. 4. Abnormal electrocardiogram with right axis deviation and T-wave flattening. -neg trop x 3 5. Down syndrome. 6. Hypothyroidism. 7. Diabetes mellitus. 8. Obstructive sleep apnea. 9. hypotension-improved overall and stable 10. Resp distress-recurrent with now transfer to ICU 11.encephalopathy 12. Fevers 14. positive troponin-minimal in the setting of resp distress and now trended negative 15. Pulmonary embolus-saddle embolus, Echo 03/12 with some RV hypokinesis and pressure/volume overload but patient HD stable at this time without resp distress Recc: -Tele -s/p course of abx, f/u cx data -continue low dose BB as tolerated only -continue asa -Continue bronchodilators -Continue now lovenox -pulmonary following. HD stable at this time with no definite indication for thrombolytics at this time Consultation Date/Type/Reason Admit Date/Time Feb 12, 2019 at 12:24 Initial Consult Date 02/12/19 Type of Consult Cardiology Reason for Consultation Positive troponin Requesting Provider: LORNA LYONS MD Date/Time of Note DATE: 03/19/19 TIME: 13:49 Exam/Review of Systems Vital Signs Vitals Vital Signs Date Temp Pulse Resp B/P (MAP) Pulse Ox O2 O2 Flow FiO2 Time Delivery Rate 03/19/19 98.6 93 19 106/64 96 11:28 (78) 03/19/19 Nasal 3.0 08:31 Cannula 03/19/19 35 05:01 Intake and Output 03/18/19 03/18/19 03/19/19 1515:00 23:00 07:00 IntakeIntake Total 500 ml 230 ml 300 ml BalanceBalance 500 ml 230 ml 300 ml Exam Exam Review of Systems: CONSTITUTIONAL: No fevers, chills. PULMONARY: No sob CARDIOVASCULAR: No chest pain/palpitations GASTROINTESTINAL: No nausea/vomiting. GENITOURINARY: No hematuria/dysuria. MUSCULOSKELETAL: No myagias/arthalgias. PSYCHIATRIC: The patient denies depression. NEUROLOGIC: No weakness Constitutional: alert Psych: no complaints Head: normocephalic ENMT: mucosa pink and moist Neck: supple, jvd (9 cm wter) Respiratory: diminished breath sounds (at bases/B) Cardiovascular: regular rate and rhythm Gastrointestinal: soft, non-tender Musculoskeletal: muscle tone (normal) Extremities: edema (none) Neurological: other (developmental delay) Labs Result Diagram: 03/18/19 0603 03/18/19 0603 Results 24hrs Laboratory Tests Test 03/18/19 17:08 03/18/19 21:33 03/19/19 07:41 03/19/19 11:25 Bedside Glucose 110 127 120 124 Medications Medications Current Medications Levothyroxine Sodium (Synthroid) 88 mcg BEFORE BREAKFAST PO Last administered on 03/19/19at 07:21; Admin Dose 88 MCG; Start 02/15/19 at 07:00 Miscellaneous Information 1 ea NOTE XX ; Start 02/14/19 at 10:30 Glucose (Glutose) 15 gm Q15M PRN PO DECREASED GLUCOSE; Start 02/14/19 at 10:30 Glucose (Glutose) 22.5 gm Q15M PRN PO DECREASED GLUCOSE; Start 02/14/19 at 10:30 Dextrose (D50w Syringe) 25 ml Q15M PRN IV DECREASED GLUCOSE; Start 02/14/19 at 10:30 Dextrose (D50w Syringe) 50 ml Q15M PRN IV DECREASED GLUCOSE; Start 02/14/19 at 10:30 Glucagon (Glucagen) 1 mg Q15M PRN IM DECREASED GLUCOSE; Start 02/14/19 at 10:30 Glucose (Glutose) 15 gm Q15M PRN BUCCAL DECREASED GLUCOSE; Start 02/14/19 at 10:30 Bisacodyl (Dulcolax Supp) 10 mg DAILY PRN [place] CONSTIPATION Last administered on 02/21/19at 14:06; Admin Dose 10 MG; Start 02/15/19 at 11:00 IV Flush (NS 10 ml) 10 ml PRN PRN IV IV PROTOCOL; Start 02/18/19 at 15:30 Albuterol/ Ipratropium (Duoneb) 3 ml Q6H RESP THERAPY HHN Last administered on 03/19/19at 07:26; Admin Dose 3 ML; Start 03/01/19 at 14:00 Insulin Aspart (Novolog Insulin Pen) NOVOLOG *MILD* ALGORITHM WITH MEALS BEDTIME SC Last administered on 03/18/19 11:34; Admin Dose 1 UNIT; Start 03/03/19 at 21:00 Meclizine HCl (Antivert) 12.5 mg BID PRN PO vertigo/dizziness; Start 03/05/19 at 15:30 Metoprolol Tartrate (Lopressor) 12.5 mg BID PO Last administered on 03/19/19 08:22; Admin Dose 12.5 MG; Start 03/07/19 at 14:00 Famotidine (Pepcid) 20 mg Q12 PO Last administered on 03/19/19 08:24; Admin Dose 20 MG; Start 03/08/19 at 21:00 Aspirin (Halfprin) 81 mg DAILY PO Last administered on 03/19/19 08:22; Admin Dose 81 MG; Start 03/10/19 at 12:00 Enoxaparin Sodium (Lovenox) 95 mg Q12 SC Last administered on 03/19/19 08:24; Admin Dose 95 MG; Start 03/14/19 at 12:00 SHARIF TORRES Mar 19, 2019 13:51
[2019-03-20] VITALS (10 sets, daily range): BP systolic 102–126; BP diastolic 55–65; PULSE 79–123; RESP 16–20
[2019-03-20] MEDS: ALBUTEROL/IPRATROPIUM (NEB) 3 ML AMP HHN SCH ×4 (01:10→19:52)
[2019-03-20] MEDS: LEVOTHYROXINE 88 MCG TAB PO SCH ×2 (07:00→08:15)
[2019-03-20] MEDS: INSULIN ASPART [NOVOLOG] 3 ML PEN SC SCH ×4 (08:00→20:28)
[2019-03-20] MEDS: ASPIRIN (EC) 81 MG TAB PO SCH (09:29)
[2019-03-20] MEDS: ENOXAPARIN 100 MG/ML SYG SC SCH ×2 (09:41→20:26)
[2019-03-20] MEDS: FAMOTIDINE 20 MG TAB PO SCH ×2 (09:42→20:20)
[2019-03-20] MEDS: METOPROLOL 25 MG TAB PO SCH ×2 (09:44→20:23)
--- NOTE | 2019-03-20 14:07 | PN ---
Date/Time of Note Date/Time of Note DATE: 03/20/19 TIME: 14:05 Assessment/Plan VTE Prophylaxis Risk score (from Nsg)>0 risk: 5 SCD applied (from Ns): No SCD contraindicated: low risk/ambulating Pharmacological prophylaxis: NA/contraindicated Pharm contraindication: low risk/ambulating Lines/Catheters IV Catheter Type (from Nrs): PICC Line Central line still needed: Yes Urinary Cath still in place: No Assessment/Plan Assessment/Plan large saddle pulmonary embolus straddling both main pulmonary arteries with large amount of clot burden extending into both lower lobe pulmonary arteries. A small amount of nonocclusive clot is also noted in the right upper lobe pulmonary artery. There is evidence of right heart strain with enlargement of the right ventricle with extensive left leg DVT # Wedge-shaped area of consolidation in the right lower lobe may represent an area of pulmonary infarct with rt sided chest pain/abdominal pain # Positive troponin with an episode of chest pain and shortness of breath, EKG showed sinus tachycardia, ABG showed marked hypoxia even though the chest x-ray is not showing much disease . She has been nonambulatory # Severe altered mental status likely secondary to metabolic encephalopathy, likely secondary to CO2 narcosis. pt is alert, oriented 2 #. Hypoxic respiratory failure,still on supplemental oxygen #. Respiratory alkalosis, no ABG today #. Morbid obesity. # Down syndrome. #. Hypertension, now normotensive. #. Diabetes mellitus type II blood sugar controlled. # History of ventral hernia repair. #. Leukocytosis secondary to pneumonia, resolved #. Hypothyroidism 11. KIRIT, more likely due to sepsis, resolved 12 uti Assessment/Plan -c/w Lovenox BID -Chest x-ray as patient is coughing -Eyedrops for the right eye - PT/OT - nebs prn - cw MTP/ASa per cards - BIPAP Has been discharged but disposition is difficult as nursing homes are not accepting her due to her age, asked case management to ask help from [facility], will attempt to discharge the patient however skilled nursing was not available by her insurance we will try to send her home with home health Result Diagram: 03/20/19 0939 03/20/19 0939 Results 24hrs Laboratory Tests Test 03/19/19 16:51 03/19/19 20:01 03/19/19 22:15 03/20/19 01:08 Bedside Glucose 114 156 102 Urine Color STRAW Urine Clarity SLIGHTLY CLOUDY A Urine pH 7.0 Urine Specific 1.005 [place] Urine Ketones NEGATIVE Urine Nitrite NEGATIVE Urine Bilirubin NEGATIVE Urine Urobilinogen NEGATIVE Urine Leukocyte NEGATIVE Esterase Urine Microscopic 1 RBC Urine Microscopic 4 WBC Urine Bacteria FEW A Urine Hemoglobin 1+ H Urine Glucose NEGATIVE Urine Total NEGATIVE Protein Test 03/20/19 08:20 03/20/19 09:39 03/20/19 12:19 Bedside Glucose 105 109 White Blood Count 6.4 Red Blood Count 4.79 Hemoglobin 13.3 Hematocrit 44.2 Mean Corpuscular 92.3 Volume Mean Corpuscular 27.8 L Hemoglobin Mean Corpuscular 30.1 L Hemoglobin Concent Red Cell 20.8 H Distribution Width Platelet Count 222 Mean Platelet 9.3 Volume Immature 4.400 H Granulocytes % Neutrophils % 74.7 Lymphocytes % 13.5 L Monocytes % 5.7 Eosinophils % 0.8 Basophils % 0.9 Nucleated Red 0.0 Blood Cells % Immature 0.280 H Granulocytes # Neutrophils # 4.8 Lymphocytes # 0.9 Monocytes # 0.4 Eosinophils # 0.1 Basophils # 0.1 Nucleated Red 0.0 Blood Cells # Sodium Level 138 Potassium Level 4.0 Chloride Level 103 Carbon Dioxide 27 Level Anion Gap 8 Blood Urea 11 Nitrogen Creatinine 0.65 Est Glomerular > 60 Filtrat Rate mL/min Glucose Level 130 Calcium Level 9.3 Phosphorus Level 4.8 Magnesium Level 1.8 Subjective 24 Hr Interval Summary Free Text/Dictation Some cough Redness of the right eye Exam/Review of Systems Exam Vitals Vital Signs Date Temp Pulse Resp B/P (MAP) Pulse Ox O2 O2 Flow FiO2 Time Delivery Rate 03/20/19 94 16 96 Nasal 2.0 28 13:19 Cannula 03/20/19 97.6 126/65 07:00 (85) Intake and Output 03/19/19 03/19/19 03/20/19 1515:00 23:00 07:00 IntakeIntake Total 430 ml 250 ml OutputOutput Total 1 ml BalanceBalance 429 ml 250 ml Exam Constitutional: obese, Head: normocephalic, atraumatic Eyes: nl lids ENMT: nl external ears & nose, mucosa pink and moist Neck: supple Respiratory: diminished breath sounds Cardiovascular: regular rate and rhythm Gastrointestinal: soft, distended Results Results 24hrs Laboratory Tests Test 03/19/19 16:51 03/19/19 20:01 03/19/19 22:15 03/20/19 01:08 Bedside Glucose 114 156 102 Urine Color STRAW Urine Clarity SLIGHTLY CLOUDY A Urine pH 7.0 Urine Specific 1.005 [place] Urine Ketones NEGATIVE Urine Nitrite NEGATIVE Urine Bilirubin NEGATIVE Urine Urobilinogen NEGATIVE Urine Leukocyte NEGATIVE Esterase Urine Microscopic 1 RBC Urine Microscopic 4 WBC Urine Bacteria FEW A Urine Hemoglobin 1+ H Urine Glucose NEGATIVE Urine Total NEGATIVE Protein Test 03/20/19 08:20 03/20/19 09:39 03/20/19 12:19 Bedside Glucose 105 109 White Blood Count 6.4 Red Blood Count 4.79 Hemoglobin 13.3 Hematocrit 44.2 Mean Corpuscular 92.3 Volume Mean Corpuscular 27.8 L Hemoglobin Mean Corpuscular 30.1 L Hemoglobin Concent Red Cell 20.8 H Distribution Width Platelet Count 222 Mean Platelet 9.3 Volume Immature 4.400 H Granulocytes % Neutrophils % 74.7 Lymphocytes % 13.5 L Monocytes % 5.7 Eosinophils % 0.8 Basophils % 0.9 Nucleated Red 0.0 Blood Cells % Immature 0.280 H Granulocytes # Neutrophils # 4.8 Lymphocytes # 0.9 Monocytes # 0.4 Eosinophils # 0.1 Basophils # 0.1 Nucleated Red 0.0 Blood Cells # Sodium Level 138 Potassium Level 4.0 Chloride Level 103 Carbon Dioxide 27 Level Anion Gap 8 Blood Urea 11 Nitrogen Creatinine 0.65 Est Glomerular > 60 Filtrat Rate mL/min Glucose Level 130 Calcium Level 9.3 Phosphorus Level 4.8 Magnesium Level 1.8 Medications Medication Current Medications Levothyroxine Sodium (Synthroid) 88 mcg BEFORE BREAKFAST PO Last administered on 03/20/19at 08:15; Admin Dose 88 MCG; Start 02/15/19 at 07:00 Miscellaneous Information 1 ea NOTE XX ; Start 02/14/19 at 10:30 Glucose (Glutose) 15 gm Q15M PRN PO DECREASED GLUCOSE; Start 02/14/19 at 10:30 Glucose (Glutose) 22.5 gm Q15M PRN PO DECREASED GLUCOSE; Start 02/14/19 at 10:30 Dextrose (D50w Syringe) 25 ml Q15M PRN IV DECREASED GLUCOSE; Start 02/14/19 at 10:30 Dextrose (D50w Syringe) 50 ml Q15M PRN IV DECREASED GLUCOSE; Start 02/14/19 at 10:30 Glucagon (Glucagen) 1 mg Q15M PRN IM DECREASED GLUCOSE; Start 02/14/19 at 10:30 Glucose (Glutose) 15 gm Q15M PRN BUCCAL DECREASED GLUCOSE; Start 02/14/19 at 10:30 Bisacodyl (Dulcolax Supp) 10 mg DAILY PRN [place] CONSTIPATION Last administered on 02/21/19 14:06; Admin Dose 10 MG; Start 02/15/19 at 11:00 IV Flush (NS 10 ml) 10 ml PRN PRN IV IV PROTOCOL; Start 02/18/19 at 15:30 Albuterol/ Ipratropium (Duoneb) 3 ml Q6H RESP THERAPY HHN Last administered on 03/20/19 13:17; Admin Dose 3 ML; Start 03/01/19 at 14:00 Insulin Aspart (Novolog Insulin Pen) NOVOLOG *MILD* ALGORITHM WITH MEALS BEDTIME SC Last administered on 03/18/19 11:34; Admin Dose 1 UNIT; Start 03/03/19 at 21:00 Meclizine HCl (Antivert) 12.5 mg BID PRN PO vertigo/dizziness; Start 03/05/19 at 15:30 Metoprolol Tartrate (Lopressor) 12.5 mg BID PO Last administered on 03/20/19 09:44; Admin Dose 12.5 MG; Start 03/07/19 at 14:00 Famotidine (Pepcid) 20 mg Q12 PO Last administered on 03/20/19 09:42; Admin Dose 20 MG; Start 03/08/19 at 21:00 Aspirin (Halfprin) 81 mg DAILY PO Last administered on 03/20/19 09:29; Admin Dose 81 MG; Start 03/10/19 at 12:00 Enoxaparin Sodium (Lovenox) 95 mg Q12 SC Last administered on 03/20/19 09:41; Admin Dose 95 MG; Start 03/14/19 at 12:00 Ciprofloxacin (Cipro) 500 mg BID@,18 PO ; Start 03/20/19 at 18:00; Status LORNA WHITT MD Mar 20, 2019 14:07
--- NOTE | 2019-03-20 17:07 | CONS ---
Assessment/Plan Assessment/Plan Hospital Course (Demo Recall) IMPRESSION: 1. Congestive heart failure-diastolic acute on chronic 2. Lower extremity edema, assess for congestive heart failure.-preserved EF 3. Tachycardia, improved, status post intubation, likely due to respiratory distress. 4. Abnormal electrocardiogram with right axis deviation and T-wave flattening. -neg trop x 3 5. Down syndrome. 6. Hypothyroidism. 7. Diabetes mellitus. 8. Obstructive sleep apnea. 9. hypotension-improved overall and stable 10. Resp distress-recurrent with now transfer to ICU 11.encephalopathy 12. Fevers 14. positive troponin-minimal in the setting of resp distress and now trended negative 15. Pulmonary embolus-saddle embolus, Echo 03/12 with some RV hypokinesis and pressure/volume overload but patient HD stable at this time without resp distress Recc: -Tele -s/p course of abx, f/u cx data -continue low dose BB as tolerated only -continue asa -Continue bronchodilators -Continue now lovenox -pulmonary following. HD stable at this time with no definite indication for thrombolytics at this time Consultation Date/Type/Reason Admit Date/Time Feb 12, 2019 at 12:24 Initial Consult Date 02/12/19 Type of Consult Cardiology Reason for Consultation chest pain Requesting Provider: LORNA LYONS MD Date/Time of Note DATE: 03/20/19 TIME: 17:06 Exam/Review of Systems Vital Signs Vitals Vital Signs Date Temp Pulse Resp B/P (MAP) Pulse Ox O2 O2 Flow FiO2 Time Delivery Rate 03/20/19 110 91 15:20 03/20/19 98.5 18 121/55 Room Air 14:00 (77) 03/20/19 2.0 28 13:19 Intake and Output 03/19/19 03/19/19 03/20/19 1515:00 23:00 07:00 IntakeIntake Total 430 ml 250 ml OutputOutput Total 1 ml BalanceBalance 429 ml 250 ml Exam Exam Review of Systems: CONSTITUTIONAL: No fevers, chills. PULMONARY: No sob CARDIOVASCULAR: No chest pain/palpitations GASTROINTESTINAL: No nausea/vomiting. GENITOURINARY: No hematuria/dysuria. MUSCULOSKELETAL: No myagias/arthalgias. PSYCHIATRIC: The patient denies depression. NEUROLOGIC: No weakness Constitutional: other (sleeping) Psych: no complaints Head: normocephalic ENMT: mucosa pink and moist Neck: supple, jvd (9 cm water) Respiratory: diminished breath sounds Cardiovascular: regular rate and rhythm Gastrointestinal: soft, non-tender Musculoskeletal: muscle tone (normal) Extremities: edema (none) Neurological: other (No focal deficits) Labs Result Diagram: 03/20/19 0939 03/20/19 0939 Results 24hrs Laboratory Tests Test 03/19/19 20:01 03/19/19 22:15 03/20/19 01:08 03/20/19 08:20 Bedside Glucose 156 102 105 Urine Color STRAW Urine Clarity SLIGHTLY CLOUDY A Urine pH 7.0 Urine Specific 1.005 [place] Urine Ketones NEGATIVE Urine Nitrite NEGATIVE Urine Bilirubin NEGATIVE Urine Urobilinogen NEGATIVE Urine Leukocyte NEGATIVE Esterase Urine Microscopic 1 RBC Urine Microscopic 4 WBC Urine Bacteria FEW A Urine Hemoglobin 1+ H Urine Glucose NEGATIVE Urine Total NEGATIVE Protein Test 03/20/19 09:39 03/20/19 12:19 White Blood Count 6.4 Red Blood Count 4.79 Hemoglobin 13.3 Hematocrit 44.2 Mean Corpuscular 92.3 Volume Mean Corpuscular 27.8 L Hemoglobin Mean Corpuscular 30.1 L Hemoglobin Concent Red Cell 20.8 H Distribution Width Platelet Count 222 Mean Platelet 9.3 Volume Immature 4.400 H Granulocytes % Neutrophils % 74.7 Lymphocytes % 13.5 L Monocytes % 5.7 Eosinophils % 0.8 Basophils % 0.9 Nucleated Red 0.0 Blood Cells % Immature 0.280 H Granulocytes # Neutrophils # 4.8 Lymphocytes # 0.9 Monocytes # 0.4 Eosinophils # 0.1 Basophils # 0.1 Nucleated Red 0.0 Blood Cells # Sodium Level 138 Potassium Level 4.0 Chloride Level 103 Carbon Dioxide 27 Level Anion Gap 8 Blood Urea 11 Nitrogen Creatinine 0.65 Est Glomerular > 60 Filtrat Rate mL/min Glucose Level 130 Calcium Level 9.3 Phosphorus Level 4.8 Magnesium Level 1.8 Bedside Glucose 109 Medications Medications Current Medications Levothyroxine Sodium (Synthroid) 88 mcg BEFORE BREAKFAST PO Last administered on 03/20/19at 08:15; Admin Dose 88 MCG; Start 02/15/19 at 07:00 Miscellaneous Information 1 ea NOTE XX ; Start 02/14/19 at 10:30 Glucose (Glutose) 15 gm Q15M PRN PO DECREASED GLUCOSE; Start 02/14/19 at 10:30 Glucose (Glutose) 22.5 gm Q15M PRN PO DECREASED GLUCOSE; Start 02/14/19 at 10:30 Dextrose (D50w Syringe) 25 ml Q15M PRN IV DECREASED GLUCOSE; Start 02/14/19 at 10:30 Dextrose (D50w Syringe) 50 ml Q15M PRN IV DECREASED GLUCOSE; Start 02/14/19 at 10:30 Glucagon (Glucagen) 1 mg Q15M PRN IM DECREASED GLUCOSE; Start 02/14/19 at 10:30 Glucose (Glutose) 15 gm Q15M PRN BUCCAL DECREASED GLUCOSE; Start 02/14/19 at 10:30 Bisacodyl (Dulcolax Supp) 10 mg DAILY PRN [place] CONSTIPATION Last administered on 02/21/19 14:06; Admin Dose 10 MG; Start 02/15/19 at 11:00 IV Flush (NS 10 ml) 10 ml PRN PRN IV IV PROTOCOL; Start 02/18/19 at 15:30 Albuterol/ Ipratropium (Duoneb) 3 ml Q6H RESP THERAPY HHN Last administered on 03/20/19 13:17; Admin Dose 3 ML; Start 03/01/19 at 14:00 Insulin Aspart (Novolog Insulin Pen) NOVOLOG *MILD* ALGORITHM WITH MEALS BEDTIME SC Last administered on 03/18/19 11:34; Admin Dose 1 UNIT; Start 03/03/19 at 21:00 Meclizine HCl (Antivert) 12.5 mg BID PRN PO vertigo/dizziness; Start 03/05/19 at 15:30 Metoprolol Tartrate (Lopressor) 12.5 mg BID PO Last administered on 03/20/19 09:44; Admin Dose 12.5 MG; Start 03/07/19 at 14:00 Famotidine (Pepcid) 20 mg Q12 PO Last administered on 03/20/19 09:42; Admin Dos e 20 MG; Start 03/08/19 at 21:00 Aspirin (Halfprin) 81 mg DAILY PO Last administered on 03/20/19 09:29; Admin Dose 81 MG; Start 03/10/19 at 12:00 Enoxaparin Sodium (Lovenox) 95 mg Q12 SC Last administered on 03/20/19 09:41; Admin Dose 95 MG; Start 03/14/19 at 12:00 Ciprofloxacin (Cipro) 500 mg BID@06,18 PO ; Start 03/20/19 at 18:00 Naphazoline HCl (Clear Eyes / Naphcon) 2 drop TID RIGHT EYE ; Start 03/20/19 at 21:00 SHARIF TORRES Mar 20, 2019 17:07
[2019-03-20] MEDS: CIPROFLOXACIN 500 MG TAB PO SCH (17:25)
[2019-03-20] MEDS: NAPHAZOLINE 0.012% 15 ML OPH RIGHT EYE SCH (20:20)
[2019-03-21 02:14] VITALS: BP 103/52; PULSE 74; RESP 16
[2019-03-21] MEDS: ALBUTEROL/IPRATROPIUM (NEB) 3 ML AMP HHN SCH ×4 (02:43→19:25)
[2019-03-21 02:59] VITALS: PULSE 99
[2019-03-21 05:00] VITALS: PULSE 98
[2019-03-21] MEDS: CIPROFLOXACIN 500 MG TAB PO SCH ×2 (05:37→18:30)
[2019-03-21] MEDS: INSULIN ASPART [NOVOLOG] 3 ML PEN SC SCH ×2 (07:49→11:56)
[2019-03-21] MEDS: ASPIRIN (EC) 81 MG TAB PO SCH (08:19)
[2019-03-21] MEDS: NAPHAZOLINE 0.012% 15 ML OPH RIGHT EYE SCH ×3 (08:19→20:15)
[2019-03-21] MEDS: METOPROLOL 25 MG TAB PO SCH ×2 (08:20→20:26)
[2019-03-21] MEDS: FAMOTIDINE 20 MG TAB PO SCH ×2 (08:20→20:15)
[2019-03-21] MEDS: ENOXAPARIN 100 MG/ML SYG SC SCH ×2 (08:25→20:04)
[2019-03-21 08:27] VITALS: BP 120/63; PULSE 92; RESP 18
--- NOTE | 2019-03-21 12:00 | PN ---
Date/Time of Note Date/Time of Note DATE: 03/21/19 TIME: 12:00 Assessment/Plan VTE Prophylaxis Risk score (from Nsg)>0 risk: 6 SCD applied (from Nsg): No SCD contraindicated: low risk/ambulating Pharmacological prophylaxis: LMWH Lines/Catheters IV Catheter Type (from Nrsg): PICC Line Central line still needed: No Urinary Cath still in place: No Assessment/Plan Hospital Course # large saddle pulmonary embolus straddling both main pulmonary arteries with large amount of clot burden extending into both lower lobe pulmonary arteries. A small amount of nonocclusive clot is also noted in the right upper lobe pulmonary artery. There is evidence of right heart strain with enlargement of the right ventricle # Wedge-shaped area of consolidation in the right lower lobe may represent an area of pulmonary infarct with rt sided chest pain/abdominal pain # Positive troponin with an episode of chest pain and shortness of breath, EKG showed sinus tachycardia, ABG showed marked hypoxia even though the chest x-ray is not showing much disease . She has been nonambulatory # Severe altered mental status likely secondary to metabolic encephalopathy, likely secondary to CO2 narcosis. pt is alert, oriented 2 #. Hypoxic respiratory failure,still on supplemental oxygen #. Respiratory alkalosis, no ABG today #. Morbid obesity. # Down syndrome. #. Hypertension, now normotensive. #. Diabetes mellitus type II blood sugar controlled. # History of ventral hernia repair. #. Leukocytosis secondary to pneumonia, resolved #. Hypothyroidism 11. KIRIT, more likely due to sepsis, resolved Assessment/Plan dc pICC line prior to dc -dc accucheck Result Diagram: 03/20/19 0939 03/20/19 0939 Results 24hrs Laboratory Tests Test 03/20/19 12:19 03/20/19 17:23 03/20/19 20:19 03/21/19 07:46 Bedside Glucose 109 119 162 116 Test 03/21/19 11:55 Bedside Glucose 119 Subjective 24 Hr Interval Summary Free Text/Dictation dysuria Exam/Review of Systems Exam Vitals Vital Signs Date Temp Pulse Resp B/P (MAP) Pulse Ox O2 O2 Flow FiO2 Time Delivery Rate 03/21/19 98.0 92 18 120/63 95 Nasal 2.0 08:27 (82) Cannula 03/21/19 28 07:34 Intake and Output 03/20/19 03/20/1919 1515:00 23:00 07:00 IntakeIntake Total 800 ml 400 ml OutputOutput Total 600 ml 500 ml BalanceBalance 200 ml -100 ml Constitutional: alert, oriented Head: normocephalic, atraumatic Eyes: nl conjunctiva ENMT: nl external ears & nose Neck: supple Respiratory: clear to auscultation, other (on 2 L/min nasal cannula) Cardiovascular: regular rate and rhythm Gastrointestinal: soft, other (painful on pal lower abdomen) Extremities: normal pulses Neurological: nl mental status Skin: nl turgor Results Results 24hrs Laboratory Tests Test 03/20/19 12:19 03/20/19 17:23 03/20/19 20:19 03/21/19 07:46 Bedside Glucose 109 119 162 116 Test 03/21/19 11:55 Bedside Glucose 119 Medications Medication Current Medications Levothyroxine Sodium (Synthroid) 88 mcg BEFORE BREAKFAST PO Last administered on 03/20/19at 08:15; Admin Dose 88 MCG; Start 02/15/19 at 07:00 Miscellaneous Information 1 ea NOTE XX ; Start 02/14/19 at 10:30 Glucose (Glutose) 15 gm Q15M PRN PO DECREASED GLUCOSE; Start 02/14/19 at 10:30 Glucose (Glutose) 22.5 gm Q15M PRN PO DECREASED GLUCOSE; Start 02/14/19 at 10:30 Dextrose (D50w Syringe) 25 ml Q15M PRN IV DECREASED GLUCOSE; Start 02/14/19 at 10:30 Dextrose (D50w Syringe) 50 ml Q15M PRN IV DECREASED GLUCOSE; Start 02/14/19 at 10:30 Glucagon (Glucagen) 1 mg Q15M PRN IM DECREASED GLUCOSE; Start 02/14/19 at 10:30 Glucose (Glutose) 15 gm Q15M PRN BUCCAL DECREASED GLUCOSE; Start 02/14/19 at 10:30 Bisacodyl (Dulcolax Supp) 10 mg DAILY PRN [place] CONSTIPATION Last administered on 02/21/19at 14:06; Admin Dose 10 MG; Start 02/15/19 at 11:00 IV Flush (NS 10 ml) 10 ml PRN PRN IV IV PROTOCOL; Start 02/18/19 at 15:30 Albuterol/ Ipratropium (Duoneb) 3 ml Q6H RESP THERAPY HHN Last administered on 03/21/19 07:32; Admin Dose 3 ML; Start 03/01/19 at 14:00 Insulin Aspart (Novolog Insulin Pen) NOVOLOG *MILD* ALGORITHM WITH MEALS BEDTIME SC Last administered on 03/18/19 11:34; Admin Dose 1 UNIT; Start 03/03/19 at 21:00 Meclizine HCl (Antivert) 12.5 mg BID PRN PO vertigo/dizziness; Start 03/05/19 at 15:30 Metoprolol Tartrate (Lopressor) 12.5 mg BID PO Last administered on 03/21/19 08:20; Admin Dose 12.5 MG; Start 03/07/19 at 14:00 Famotidine (Pepcid) 20 mg Q12 PO Last administered on 03/21/19 08:20; Admin Dose 20 MG; Start 03/08/19 at 21:00 Aspirin (Halfprin) 81 mg DAILY PO Last administered on 03/21/19 08:19; Admin Dose 81 MG; Start 03/10/19 at 12:00 Enoxaparin Sodium (Lovenox) 95 mg Q12 SC Last administered on 03/21/19 08:25; Admin Dose 95 MG; Start 03/14/19 at 12:00 Ciprofloxacin (Cipro) 500 mg BID@06,18 PO Last administered on 03/21/19 05:37; Admin Dose 500 MG; Start 03/20/19 at 18:00 Naphazoline HCl (Clear Eyes / Naphcon) 2 drop TID RIGHT EYE Last administered on 03/21/19 08:19; Admin Dose 2 DROP; Start 03/20/19 at 21:00 CARY GIPSON NP Mar 21, 2019 12:00
--- NOTE | 2019-03-21 12:00 | DS ---
Date/Time of Note Date/Time of Note DATE: 03/21/19 TIME: 12:00 Discharge Summary Admission/Discharge Info Admit Date/Time Feb 12, 2019 at 12:24 Discharge Date/Time Discharge Diagnosis Respiratory failure status post extubation Large Pulmonary embolus left leg DVT Patient Condition: Stable Consults Dr. Capone, pulmonology Dr. Colby, cardiology, Dr. Gorman, infectious disease Hospital Course This is a 28-year-old female with a past medical history of Down syndrome, hypothyroidism, diabetes, hypertension, history of psychosis in the past, sleep apnea, was brought in by the mother after the patient has been noncompliant with her use of her CPAP machine at home. According to the mother, the patient has been really noncompliant with her CPAP machine. She does not like the way it fits on her mouth. She has been progressively becoming very weak, tired, short of breath and was brought into the emergency department for further evaluation. Currently, patient is very altered, unable to obtain any history; however according to the mother also patient responds a little bit in [place]. According to the mother, the patient did not have any cough, any chest pain, any fevers and chills. On arrival to ED, vital signs showed temperature of 98.7, respiratory rate of 18 currently 29, blood pressure was 110/63, was initially put on BiPAP; however the patient refused BiPAP and then currently was on high flow at 80%. The patient was given albuterol, DuoNeb, Proventil and Rocephin and was admitted for further management. The patient had chest x-ray which was a poor study. BUN was 10 and creatinine 0.76. White count of 16.9, hemoglobin 14.8, platelet count 377. PAST MEDICAL HISTORY: 1. Down syndrome as a child. 2. Hypertension. 3. Hyperlipidemia. 4. Diabetes. 5. Hypothyroidism. 6. Sleep apnea. 7. History of psychosis disorder. Discharge diagnoses include : # large saddle pulmonary embolus straddling both main pulmonary arteries with large amount of clot burden extending into both lower lobe pulmonary arteries. A small amount of nonocclusive clot is also noted in the right upper lobe pulmonary artery. There is evidence of right heart strain with enlargement of the right ventricle # Wedge-shaped area of consolidation in the right lower lobe may represent an area of pulmonary infarct with rt sided chest pain/abdominal pain # Positive troponin with an episode of chest pain and shortness of breath, EKG showed sinus tachycardia, ABG showed marked hypoxia even though the chest x-ray is not showing much disease. She has been nonambulatory # Severe altered mental status likely secondary to metabolic encephalopathy, likely secondary to CO2 narcosis. pt is alert, oriented 2 #. Hypoxic respiratory failure,still on supplemental oxygen #. Respiratory alkalosis, no ABG today #. Morbid obesity. # Down syndrome. #. Hypertension, now normotensive. #. Diabetes mellitus type II blood sugar controlled. # History of ventral hernia repair. #. Leukocytosis secondary to pneumonia, resolved #. Hypothyroidism #. K[place], more likely due to sepsis, resolved On 02/12/3019 pt did not tolerate a high flow oxygenation and was emergency intubated. She was transferred to ICU. She was on IV vasopressor. PICC line was placed for poor venous access. During hospitalization patient was seen by numerous other specialists. Dr. Colby was a cardiology consult. We followed his recommendations. Patient was intubated for [address] Capone, pulmonology managed her ventilator settings and tried to wean her from the ventilator numerous times she was not weanable. Patient was hypoxic. She was stabilized with breathing treatment and had IV antibiotics. Eventually patient was extubated. Her blood sugar was controlled. Her leukocytosis resolved. We gave her thyroid supplements daily. Dr. Gormna. Infectious disease doctor managed patient IV antibiotics. They were changed for few times during her hospitalization. Her acute kidney injury is resolved as well prior to discharge. Prior to discharge patient developed chest pain and found to have positive troponin. EKG shows sinus tachycardia and ABG showed hypoxia. Patient was diagnosed with pulmonary embolism in her both main pulmonary arteries. Small amount of nonconclusive clot also was found in the right upper lobe pulmonary artery. Patient was started on heparin drip. Then Dr. Colby managed to switch her to Lovenox 95 mg twice a day. Patient physical therapy was on hold. Patient was given supplemental oxygen. Her mother was given soc ial and nursing support. Pt pain was controlled. Hypoglycemic protocol is noted. After prolonged hospitalization patient is clinically improved. Patient was able to tolerate carbohydrate control diet, was able to stand up for short period of time, but she requires an additional oxygenation. The plan was to transfer her to skilled nurse facility with continuation of physical therapy but her insurance did not approve it. Nurses showed mother how to inject Lovenox. Patient received Lovenox from the pharmacy prior to be d/c. Home health was set up for the patient. Patient was instructed to see Dr. Lasha Capone and primary care provider in 1 week. Patient was set up with home oxygen and plan of care was discussed with Dr. Asencio/Dr. Schumacher. In stable condition patient was discharged. Patient was instructed to continue designated medications. All questions were answered and all problems were addressed. Home Meds Active Scripts Albuterol/Ipratropium* (Combivent Respimat*) 20-100 Mcg/Inh - 4 Gm Aer.w.adap, 1 PUFF INHALATION QID for 28 Days, #1 INHALER Prov:CARY GIPSON NP 03/21/19 Naphazoline Hcl* (Clear Eyes Redness Relief* 0.1%) 30 Ml Drops, 2 DROP RIGHT EYE TID for 10 Days, BOTTLE Prov:CARY GIPSON NP 03/21/19 Meclizine Hcl* (Meclizine Hcl*) 25 Mg Tablet, 12.5 MG PO BID PRN for vertigo/dizziness for 10 Days, TAB Prov:CARY GIPSON NP 03/21/19 Metoprolol Tartrate* (Lopressor*) 25 Mg Tab, 12.5 MG PO BID for 30 Days, TAB Prov:CARY GIPSON NP 03/21/19 Aspirin Delayed Release (Aspirin Delayed Release) 81 Mg Tablet.dr 81 MG PO DAILY for 30 Days Prov:CARY GIPSON NP 03/21/19 Enoxaparin Sodium (Enoxaparin Sodium) 100 Mg/1 Ml Syringe, 95 MG SC Q12 for 1 Day Prov:CARY GIPSON NP 03/21/19 Ciprofloxacin Hcl* (Ciprofloxacin Hcl*) 500 Mg Tablet, 500 MG PO BID@06,18 for 7 Days, TAB Prov:CARY GIPSON NP 03/21/19 Reported Medications Levothyroxine Sodium* (Levoxyl*) 88 Mcg Tablet, 88 MCG PO BEFORE BREAKFAST, #30 TAB 02/12/19 Cyanocobalamin* (Vitamin B12*) 100 Mcg Tab, 100 MCG PO DAILY, TAB 02/12/19 Loratadine* (Loratadine*) 10 Mg Tablet, 10 MG PO DAILY, #30 TAB 02/12/19 Metformin Hcl* (Metformin Hcl*) 500 Mg Tablet, 500 MG PO WITH BREAKFAST, #30 TAB 02/12/19 Ergocalciferol (Vitamin D2) (VITAMIN D2) 50,000 Unit Capsule, 59007 UNIT PO EVERY SUNDAY, CAP 02/12/19 Discontinued Reported Medications [place] Carbonate* ([place]*) 300 Mg Cap, 600 MG PO QHS, CAP 02/12/19 Loxapine Succinate (Loxapine) 10 Mg Capsule, 10 MG PO QHS, CAP 02/12/19 Propranolol Hcl* (Propranolol Hcl*) 10 Mg Tablet, 10 MG PO BID, TAB 02/12/19 Follow-up Plan FU PCP in 1-2 weeks fu Pulmonary 1-2 weeks Patient will be need to switch from Lovenox to Eliquis in few weeks Primary Care Provider Russell Sterling MD Time spent on discharge: < 30 minutes Pending Labs Laboratory Tests Test 03/20/19 12:19 03/20/19 17:23 03/20/19 20:19 03/21/19 07:46 Bedside 109 119 162 116 Glucose mg/dL (70-220) mg/dL (70-220) mg/dL (70-220) mg/dL (70-220) Test 03/21/19 11:55 Bedside 119 Glucose mg/dL (70-220) CARY GIPSON NP Mar 21, 2019 12:00
--- NOTE | 2019-03-21 14:36 | CONS ---
Assessment/Plan Assessment/Plan Hospital Course (Demo Recall) Looks comfortable, no fevers ANTIMICROBIALS: Cipro PHYSICAL EXAMINATION: GENERAL: This is a morbidly obese, well-developed, middle-aged woman who is in no distress. HEENT: Head atraumatic, normocephalic. NECK: Supple. CHEST: Rise symmetrical. Breath sounds diminished to bases. HEART: S1, S2. ABDOMEN: Soft, bowel sounds present. ASSESSMENT: 1. Status post respiratory failure . 2. Pulmonary embolism. 3. Status post pneumonia and congestive heart failure exacerbation. 4. Diabetes. 5. Down syndrome. 6. UTI-> GNR PLAN: Stable, pending final urine cx Consultation Date/Type/Reason Admit Date/Time Feb 12, 2019 at 12:24 Initial Consult Date Type of Consult id Requesting Provider: LORNA LYONS MD Date/Time of Note DATE: 03/21/19 TIME: 14:35 Exam/Review of Systems Exam Vitals Vital Signs Date Temp Pulse Resp B/P (MAP) Pulse Ox O2 O2 Flow FiO2 Time Delivery Rate 03/21/19 2.0 13:03 03/21/19 90 20 95 Nasal 28 13:00 Cannula 03/21/19 98.0 120/63 08:27 (82) Intake and Output 03/20/19 03/20/19 03/21/19 1515:00 23:00 07:00 IntakeIntake Total 800 ml 400 ml OutputOutput Total 600 ml 500 ml BalanceBalance 200 ml -100 ml Results Result Diagram: 03/20/19 0939 03/20/19 0939 Results 24hrs Laboratory Tests Test 03/20/19 17:23 03/20/19 20:19 03/21/19 07:46 03/21/19 11:55 Bedside Glucose 119 162 116 119 Medications Medication Current Medications Levothyroxine Sodium (Synthroid) 88 mcg BEFORE BREAKFAST PO Last administered on 03/20/19at 08:15; Admin Dose 88 MCG; Start 02/15/19 at 07:00 Bisacodyl (Dulcolax Supp) 10 mg DAILY PRN [place] CONSTIPATION Last administered on 02/21/19at 14:06; Admin Dose 10 MG; Start 02/15/19 at 11:00 IV Flush (NS 10 ml) 10 ml PRN PRN IV IV PROTOCOL; Start 02/18/19 at 15:30 Albuterol/ Ipratropium (Duoneb) 3 ml Q6H RESP THERAPY HHN Last administered on 03/21/19 13:00; Admin Dose 3 ML; Start 03/01/19 at 14:00 Meclizine HCl (Antivert) 12.5 mg BID PRN PO vertigo/dizziness; Start 03/05/19 at 15:30 Metoprolol Tartrate (Lopressor) 12.5 mg BID PO Last administered on 03/21/19 08:20; Admin Dose 12.5 MG; Start 03/07/19 at 14:00 Famotidine (Pepcid) 20 mg Q12 PO Last administered on 03/21/19 08:20; Admin Dose 20 MG; Start 03/08/19 at 21:00 Aspirin (Halfprin) 81 mg DAILY PO Last administered on 03/21/19 08:19; Admin Dose 81 MG; Start 03/10/19 at 12:00 Enoxaparin Sodium (Lovenox) 95 mg Q12 SC Last administered on 03/21/19 08:25; Admin Dose 95 MG; Start 03/14/19 at 12:00 Ciprofloxacin (Cipro) 500 mg BID@06,18 PO Last administered on 03/21/19 05:37; Admin Dose 500 MG; Start 03/20/19 at 18:00 Naphazoline HCl (Clear Eyes / Naphcon) 2 drop TID RIGHT EYE Last administered on 03/21/19 13:14; Admin Dose 2 DROP; Start 03/20/19 at 21:00 RUDOLPH PANIAGUA NP Mar 21, 2019 14:36
--- NOTE | 2019-03-21 14:57 | CONS ---
Assessment/Plan Assessment/Plan Hospital Course (Demo Recall) IMPRESSION: 1. Congestive heart failure-diastolic acute on chronic 2. Lower extremity edema, assess for congestive heart failure.-preserved EF 3. Tachycardia, improved, status post intubation, likely due to respiratory distress. 4. Abnormal electrocardiogram with right axis deviation and T-wave flattening. -neg trop x 3 5. Down syndrome. 6. Hypothyroidism. 7. Diabetes mellitus. 8. Obstructive sleep apnea. 9. hypotension-improved overall and stable 10. Resp distress-recurrent with now transfer to ICU 11.encephalopathy 12. Fevers 14. positive troponin-minimal in the setting of resp distress and now trended negative 15. Pulmonary embolus-saddle embolus, Echo 03/12 with some RV hypokinesis and pressure/volume overload but patient HD stable at this time without resp distress Recc: -Now on med surg -s/p course of abx, f/u cx data -continue low dose BB as tolerated only -continue asa -Continue bronchodilators -Continue now lovenox -pulmonary following. HD stable at this time with no definite indication for thrombolytics at this time Consultation Date/Type/Reason Admit Date/Time Feb 12, 2019 at 12:24 Initial Consult Date 02/12/19 Type of Consult Cardiology Reason for Consultation chest pain Requesting Provider: LORNA LYONS MD Date/Time of Note DATE: 03/21/19 TIME: 14:55 Exam/Review of Systems Vital Signs Vitals Vital Signs Date Temp Pulse Resp B/P (MAP) Pulse Ox O2 O2 Flow FiO2 Time Delivery Rate 03/21/19 2.0 13:03 03/21/19 90 20 95 Nasal 28 13:00 Cannula 03/21/19 98.0 120/63 08:27 (82) Intake and Output 03/20/19 03/20/19 03/21/19 1515:00 23:00 07:00 IntakeIntake Total 800 ml 400 ml OutputOutput Total 600 ml 500 ml BalanceBalance 200 ml -100 ml Exam Exam Review of Systems: CONSTITUTIONAL: No fevers, chills. PULMONARY: No sob CARDIOVASCULAR: No chest pain/palpitations GASTROINTESTINAL: No nausea/vomiting. GENITOURINARY: No hematuria/dysuria. MUSCULOSKELETAL: No myagias/arthalgias. PSYCHIATRIC: The patient denies depression. NEUROLOGIC: No weakness Constitutional: other (sleeping, arousable) Psych: no complaints Head: normocephalic ENMT: mucosa pink and moist Neck: supple, jvd (9 cm water) Respiratory: diminished breath sounds Cardiovascular: regular rate and rhythm Gastrointestinal: soft, non-tender Musculoskeletal: muscle tone (normal) Extremities: edema (trace/B) Neurological: other (developmental delay) Labs Result Diagram: 03/20/1939 03/20/19 0939 Results 24hrs Laboratory Tests Test 03/20/19 17:23 03/20/19 20:19 03/21/19 07:46 03/21/19 11:55 Bedside Glucose 119 162 116 119 Medications Medications Current Medications Levothyroxine Sodium (Synthroid) 88 mcg BEFORE BREAKFAST PO Last administered on 03/20/19 08:15; Admin Dose 88 MCG; Start 02/15/19 at 07:00 Bisacodyl (Dulcolax Supp) 10 mg DAILY PRN [place] CONSTIPATION Last administered on 02/21/19 14:06; Admin Dose 10 MG; Start 02/15/19 at 11:00 IV Flush (NS 10 ml) 10 ml PRN PRN IV IV PROTOCOL; Start 02/18/19 at 15:30 Albuterol/ Ipratropium (Duoneb) 3 ml Q6H RESP THERAPY HHN Last administered on 03/21/19 13:00; Admin Dose 3 ML; Start 03/01/19 at 14:00 Meclizine HCl (Antivert) 12.5 mg BID PRN PO vertigo/dizziness; Start 03/05/19 at 15:30 Metoprolol Tartrate (Lopressor) 12.5 mg BID PO Last administered on 03/21/19 08:20; Admin Dose 12.5 MG; Start 03/07/19 at 14:00 Famotidine (Pepcid) 20 mg Q12 PO Last administered on 03/21/19 08:20; Admin Dose 20 MG; Start 03/08/19 at 21:00 Aspirin (Halfprin) 81 mg DAILY PO Last administered on 03/21/19 08:19; Admin Dose 81 MG; Start 03/10/19 at 12:00 Enoxaparin Sodium (Lovenox) 95 mg Q12 SC Last administered on 03/21/19 08:25; Admin Dose 95 MG; Start 03/14/19 at 12:00 Ciprofloxacin (Cipro) 500 mg BID@06,18 PO Last administered on 03/21/19at 05:37; Admin Dose 500 MG; Start 03/20/19 at 18:00 Naphazoline HCl (Clear Eyes / Naphcon) 2 drop TID RIGHT EYE Last administered on 03/21/19at 13:14; Admin Dose 2 DROP; Start 03/20/19 at 21:00 SHARIF TORRES Mar 21, 2019 14:57
== END 2019-03-21 21:28 | disposition home or self-care (01) | DRG 870 ==
LOC: E/R 09:31 → PP2 12:24 → ICU 12:24 → UNDOADMIN 12:24 → CANRESERV 14:28 → EDBEDREQSVC 15:17 → EDBEDREQ 18:43 → EDBEDREQSVC 19:59 → CANRESERV 20:00 → 6WM 03-04 01:45 → PP2 03-06 21:50 → 6WM 03-09 20:37 → ICU 03-10 21:13 → TEL 03-12 13:26 → PP2 03-20 00:56
PROVIDERS: ADMIT Internal Medicine; ATTEND Internal Medicine
PROC: 5A1955Z Respiratory Ventilation, Greater than 96 Consecutive Hours (ICD-10-PCS; principal; 2019-02-12)
PROC: 0BH17EZ Insertion of Endotracheal Airway into Trachea, Via Natural or Artificial Opening (ICD-10-PCS; 2019-02-12)
PROC: 05H433Z Insertion of Infusion Device into Left Innominate Vein, Percutaneous Approach (ICD-10-PCS; 2019-02-15)
PROC: 02HV33Z Insertion of Infusion Device into Superior Vena Cava, Percutaneous Approach (ICD-10-PCS; 2019-02-18)
DX: A41.9 Sepsis, unspecified organism (principal); J18.9 Pneumonia, unspecified organism; G93.41 Metabolic encephalopathy; J96.01 Acute respiratory failure with hypoxia; I50.33 Acute on chronic diastolic (congestive) heart failure; I26.99 Other pulmonary embolism without acute cor pulmonale; N17.9 Acute kidney failure, unspecified; Z68.42 Body mass index [BMI] 45.0-49.9, adult; E87.2 Acidosis; E87.3 Alkalosis; I82.402 Acute embolism and thrombosis of unspecified deep veins of left lower extremity; N39.0 Urinary tract infection, site not specified; R65.20 Severe sepsis without septic shock; E66.01 Morbid (severe) obesity due to excess calories; E78.5 Hyperlipidemia, unspecified; E11.9 Type 2 diabetes mellitus without complications; E03.9 Hypothyroidism, unspecified; G47.30 Sleep apnea, unspecified; I11.0 Hypertensive heart disease with heart failure; K52.9 Noninfective gastroenteritis and colitis, unspecified; Q90.9 Down syndrome, unspecified; Z71.3 Dietary counseling and surveillance; Z91.19 Patient's noncompliance with other medical treatment and regimen
CPT/HCPCS: 31500; 36415; 36569; 36600; 70450; 70490; 71045; 71250; 71275; 74177; 76937; 80048; 80053; 80061; 80202; 80307; 81001; 82550; 82553; 82803; 82962; 83036; 83605; 83735; 83880; 84100; 84132; 84443; 84484; 85025; 85610; 85730; 87070; 87075; 87081; 87086; 89220; 92526; 92610; 93005; 93306; 93308; 93970; 93971; 94002; 94003; 94640; 94660; 94664; 94667; 94668; 94669; 94770; 96374; 97110; 97162; 97164; 97530; A4310; C1769; J0692; J0696; J1644; J1650; J1815; J1940; J1956; J2060; J2250; J2543; J2920; J2930; J2997; J3010; J3370; J3480; J3490; J7040; J7042; J7050; Q9967